=== PATIENT | female | born 1985 | race Caucasian/White ===

== ENCOUNTER 2024-11-24 00:43 | Day surgery (SDC) | payer OTHER, SELFPAY ==
[2024-11-13 10:56] VITALS: BMI 22.3
--- NOTE | 2024-11-13 10:57 | PC.NURSE ---
Report to the Outpatient Waiting Room, entrance under the green pavilion located off [facility], at time _0630_ on date _[id number]_. Planned Procedure Time: _0830_.? Time changes happen often and if your time is changed the preop area will call you the afternoon before. - You and your visitor will be asked to self-screen and do not enter if you have any COVID symptoms. Please call surgeon if you need to reschedule. - A mask is optional within the hospital at this time. Patients may have clear liquids (water, carbonated beverages, clear teas, apple juice) until 3 hours prior to surgery with a maximum of 20 ounces. - No food from midnight until time of surgery and no smoking. This includes no chewing gum, candy or mints. Take only the following medications with a SIP of water on the morning of surgery: ___None DO NOT STOP ANY OF YOUR OTHER PRESCRIPTION MEDICATIONS PRIOR TO SURGERY EXCEPT THE FOLLOWING Medications to discontinue per physician ___None Date to take last dose Please no make-up, nail malaysian, hairspray, perfume, deodorant, or body powder the day of surgery.? No jewelry (including any body piercings) or valuables the day of surgery, leave them at home.? Please take a shower or bath the night before, or the morning of, surgery with an antibacterial soap.? Wear comfortable, loose fitting clothing.? - Jewelry must be removed prior to entering the operating room.? Rings and piercings that are not removed may be cut off. - The hospital will not accept responsibility for valuables.? - Please leave all valuables, including medications, at home the day of surgery. If you are going home after surgery, a licensed test car driver must drive you home.? - NO public transportation without another adult if you receive anesthesia. - We recommend that an adult stay with you for 24 hours following discharge. - We also recommend that you do not drive, make important decision, drink alcoholic beverages, or take any drugs that were not prescribed by your health care provider for at least 24 hours after your discharge time. Follow any additional instructions given to you from your surgeon. Telephone instructions given to __Erin__and asked if any additional questions and then verbalized understanding. Patient advised to call surgeon office or pre surgery nurse liaison [phone] if any additional questions.
[2024-11-24] VITALS (15 sets, daily range): BP systolic 102–121; BP diastolic 57–74; PULSE 72–109; RESP 16–20; TEMP 36.9–37.8; O2SAT 97–100; BMI 22.8
--- NOTE | 2024-11-24 06:53 | WPDHPUPDATE1 ---
History and Physical Update Update Date/Time: 11/24/24 06:53 History and Physical has been reviewed, including an updated exam of the patient. There are NO changes in the patient's condition. Risks, benefits, and alternatives have been discussed and questions answered. Patient agrees to proceed with procedure.
--- NOTE | 2024-11-24 06:54 | W.PM.PROC2 ---
Procedure Note - Detailed Date of Procedure 11/24/24 Pre-op Diagnosis breast ptsois, skin laxity Post-op Diagnosis Same Procedure Performed 1. Bilateral mastopexy 2. Progressive tension abdominoplasty with suction lipectomy Surgeon Bj Up MD Anesthesia General Findings Abdominal tissue removed: 899 grams Lipoaspirate: Posterior: 1150 cc Anterior: 1450 cc Diastasis width: 6 cm Description of Procedure They are here today for the above procedures. Previously and again today the risks, benefits, alternatives were discussed in extensive detail. I wanted them to be very realistic about the risks involved as well as expectations. We discussed aftercare and what to monitor for. I was very upfront about the risks of wound breakdown leading to loss of skin, open wounds, and need for additional procedures with permanent abdominal deformity. We discussed DVT/PE risks and management. Made sure answered all of their questions to their satisfaction today and consent was obtained. They were marked in the preoperative holding area with their verification. The patient was taken to the operating room. Anesthesia was provided by anesthesiology. A Guerrero catheter was started. Posterior Placed prone on the operating room table with care taken to protect from injury. Prepped and draped in a standard sterile fashion. A surgical time-out was taken. Stab incisions were made and tumescent solution was infiltrated. Once adequate time was allowed for hemostasis a 5mm basket and 4mm antonieta cannula were utilized to complete suction lipectomy based on S.A.F.E. technique in multiple planes and passes. Suction lipectomy continued to result based on pre-operative planning, intra-operative observation, and rolling pinch test which were in full agreement. Patient was then placed supine with care taken to protect from injury. Breast Eleven blade was utilized to make a stab incision and infiltrated with low volume tumescent solution. The breast was tailor tacked into place. I tailor tacked the breast into position. Placed her in a sitting position. Verified the nipple-areolar location based on preoperative planning as well as intraoperative observations and measurements in full agreement. She was placed supine. I de-epithelialized the pedicle. I then de-epithelialized the inferior breast tissue to create an autoaugmentation flap based on intercostal business services administrator. I elevated medial and lateral tissue flaps as well for planned closure. The autoaugmentation flap was sutured to the chest wall with 2-0 PDS. I closed along the IMF with 2-0 Stratafix. Along the vertical with 2-0 PDS. I closed around the Benny with 3-0 strata fix. 3-0 Monocryl along the vertical. 3-0 Stratafix along the IMF. I finally closed everything with running subcuticular 4-0 Monocryl and tissue glue. Abdomen I placed the patient in a flexed position to verify the upper and lower markings would reach. I then placed supine. A thorough abdominal examination was completed. Stab incisions were made and tumescent solution infiltrated. Stab incisions were made and tumescent solution was infiltrated. Once adequate time was allowed for hemostasis a 5mm basket and 4mm antonieta cannula were utilized to complete suction lipectomy based on S.A.F.E. technique in multiple planes and passes. Suction lipectomy continued to result based on pre-operative planning, intra-operative observation, and rolling pinch test which were in full agreement. A 10 blade was used to make the upper incision. I continued dissection down to the level of fascia. Elevated just what was necessary for repair of the diastasis. I then again flexed the bed to verify the upper skin flap would reach the lower markings without tension. Once verified I placed her supine once again and a 10 blade used to make the lower incision. I elevated up to level the umbilicus and left the umbilicus intact on a well-vascularized stalk. The intervening tissue was removed. A 2 mm blunt cannula with 0.5% bupivacaine was injected deep to the fascia bilaterally. I plicated the diastasis recti using 0 PDO Stratafix barbed suture. This was in 2 separate layers using 2 separate sutures as well. The patient was flexed and starting from superior to inferior began plication using 2-0 Vicryl to obliterate all space in a standard progressive tension fashion. At the umbilicus I marked out the location of the skin and inset this with 3-0 Monocryl and 4-0 Vicryl. I continued the remainder of the plication using 2-0 Vicryl until I reached my lower planned scar line. I trimmed any excess skin of the upper flap making sure this was a tension-free closure. 15 Wes drain was placed. I then approximated using a 3 point suture with 2-0 Vicryl followed by 2-0 PDO Stratafix, 3-0 Stratafix ,running subcuticular 4-0 Monocryl, and tissue glue. Fluffs, surgical bra, and an abdominal binder were placed. The patient was transferred to the bed in a flexed position. [place] and taken to the PACU without difficulty. All instrument and sponge counts were correct at the end of the case. Estimated Blood Loss 100 Drains Yes (15 Wes) Packing No Pathology None sent Complications No immediate complications Condition Stable Disposition PACU
--- NOTE | 2024-11-24 07:01 | WPDANESEPPF ---
Anes - Initial Pre Proc Eval Procedure: Operation Date: 11/24/24 08:30 Proposed Procedures p Bilateral Breast Mastopexy, - Bj Up MD s Abdominoplasty with Liposuction - Bj Up MD Date/Time: 11/24/24 07:01 Surgeon: Bj Up MD Pre Op Diagnosis: breast ptsois, skin laxity Patient Data Age: 39 Gender: F Height: 1.68 m Weight: 62.7 kg Allergies Allergy/AdvReac Type Severity Reaction Status Date / Time No Known Allergies Allergy Verified 11/13/24 10:46 Home Medications ?Medication ?Instructions ?Recorded ?Confirmed ?Type lisdexamfetamine 40 mg capsule 40 mg PO DAILY 11/13/24 11/13/24 History (Vyvanse) Laboratory Tests 11/24/24 06:48 Cotinine Pending Patient hx anesthesia problems: none Family hx anesthesia problems: none Results Review: All pre-operative results and documents have been reviewed as part of the pre-operative evaluation. [facility] Surgical History Surgical History (Updated 11/24/24 @ 07:01 by Dillon Owens MD) H/O laparoscopy History of endometrial ablation H/O: hysterectomy Social History Social History Smoking status: Never smoker Living arrangements: with family Spiritual care concerns: No Anes - Eval Final PreProcedure Day of Procedure 11/24/24 07:01 Patient weight: normal Heart: regular rate and rhythm Lungs: clear to auscultation Airway: Mallampati scale class II Neurological: alert and oriented Last oral intake: >/= 8 hours ASA classification: I Emergent: no Anesthetic plan: proceed Anesthesia type and monitoring: general ETT and standard monitoring Results Review: All pre-operative results and documents have been reviewed as part of the pre-operative evaluation. Informed Consent: The patient's anesthetic plan and its attendant risks and benefits were discussed with the patient/family/POA. Questions were solicited and answers provided to the satisfaction of the patient/family/POA.
[2024-11-24 07:22] LABS: Urine Cotinine NEGATIVE
[2024-11-24] MEDS: LACTATED RINGERS 1,000 ML 30 ML IV CONT ×2 (08:00→13:53)
[2024-11-24] MEDS: ceFAZolin 2 GM/D5W 50 ML 2 GM/50 ML BAG IVPB (08:28)
[2024-11-24] MEDS: LACTATED RINGERS IRRIG 1,000 ML, LIDOCAINE 1% LOCAL INJ 50 ML, EPINEPHrine HCL INJ 1 MG... INFILTRATE (08:28)
[2024-11-24] MEDS: TRANEXAMIC ACID 1,000MG/ISO100 1,000 MG/100 ML BAG 200 MG IVPB (08:28)
[2024-11-24] MEDS: BUPIVACAINE/EPINEPHRINE 0.5% 30 ML VIAL 60 ML INFILTRATE (08:28)
[2024-11-24] MEDS: ceFAZolin SODIUM 1 GM VIAL IV PUSH (12:27)
[2024-11-24] MEDS: fentaNYL CITRATE INJ (*CRX) 100 MCG/2 ML VIAL 25 MCG IV PUSH ×3 (15:40→17:30)
--- NOTE | 2024-11-24 17:10 | SUR.PHASEII ---
1710: Orders received from Ratna Anderson CRNA for an oxycodone. Patient and patient's family stated they no longer want patient to take the oxycodone. Patient has home medication of percocet (prescribed by Dr. Up). Patient requests to take half of her prescribed home medication of percocet. Given to her by spouse. Will monitor patient for safety.
[2024-11-24] MEDS: ONDANSETRON INJ 4 MG/2 ML VIAL IV PUSH (18:07)
[2024-11-24] MEDS: diazePAM (*CRX) 5 MG TABLET PO (18:15)
--- OUTSIDE RECORDS SUMMARY | 2024-11-30 10:11 | XMS_ITS | Clinical Summary ---
Author Organization [facility] Address [address] [place] [address] Care Team Providers Care General Milling Superintendent Name Role Phone Unavailable Primary Care Provider Unavailabl e Source Comments [facility] [employer],non-owned Affiliates and Associated Physician Practices is amultiple site organization consisting of ambulatory clinics and hospital sitesin [place], [place], [place] and [place]. This disclosure is being madepursuant to the Care Everywhere program and may not contain all information available regarding this patient. Last updated 18.[facility] [employer] Social History Tobacco Use Types Packs/Day Years Used Date Smoking Tobacco: Never Assessed Sex and Gender Information Value Date Recorded Sex Assigned at Not on file Gender Identity Not on file Sexual Orientation Not on file Plan of Treatment Health Maintenance Due Date Last Done Comments PAP SMEAR 1987 HIV SCREENING 2002 HEPATITIS C SCREENING 07/26/2005 DTAP/TDAP/TD VACCINES (1 - Tdap) 2006 HEPATITIS B VACCINE (1 of 3 - 19+ 3-dose series) 2006 COVID-19 VACCINE ( - 2023-2 5 season) 2024 INFLUENZA VACCINE (#1) 2024 DEPRESSION SCREENING 11/18/2024 ZOSTER VACCINE (1 of 2) 2037 HIB VACCINE Aged Out No longer eligi ble based on patient's age to complete this topic HPV VACCINE Aged Out No longer eligi ble based on patient's age to complete this topic MENINGOCOCCAL VACCINE Aged Out No geraldine celso eligible based on patient's age to complete this topic PNEUMOCOCCAL VACCINE Aged Out No long er eligible based on patient's age to complete this topic [address] [place] [id number]
--- OUTSIDE RECORDS SUMMARY | 2024-11-30 10:11 | XMS_ITS | Encounter Summary ---
Author Organization [employer] Address [address] [place] [id number] Care Team Providers Care Door Hanger Name Role Phone Delonte Marin MD Primary Care Provider [phone] Roshni Pop APRN Unavailable [phone] Reason for Visit * Reason Comments Back Pain-New <28 days Generalized Body Aches Encounter Details Date Type Department Care Team (Late st Contact Info) Description 09/27/2024 2:50 PM [facility] - 09/27/2024 4:40 PM [facility] [address] [place] [id number] Belén Gotti K, DO [address] [place] [address] Feeling of incomplete bladder emptying (Primary Dx); Dehydration, mild Discharge Disposition: Home - Discharge to Home or Self Care Social History Tobacco Use Types Packs/Day Years Used Date Smoking Tobacco: Never Passive Smoke Exposure: Never Smokeless Tobacco: Never Alcohol Use Standard Drinks/Week Comments No 0 (1 standard drink = 0.6 oz pur e alcohol) PHQ-2 Answer Date Recorded PHQ-2 Total Score 3 08/20/2024 Comments Unknown Sex and Gender Information Value Date Recorded Sex Assigned at Not on file Legal Sex Female 4:27 PM CDT Gender Identity Not on file Sexual Orientation Not on file 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 Not on file Not on file Not on file documented as of this encounter Last Filed Vital Signs Vital Sign Reading Time Taken Comments Blood Pressure 110/70 09/27/2024 4:30 PM [facility] Pulse 80 09/27/2024 4:30 PM [facility] Temperature 36.5 ??C (97.7 ??F) 09/27/2024 2:54 PM CS T Respiratory Rate 14 09/27/2024 4:30 PM [facility] Oxygen Saturation 98% 09/27/2024 4:30 PM [facility] Inhaled Oxygen Concentration - - Weight 63.5 kg (140 lb) 09/27/2024 2:54 PM [facility] Height 167.6 cm (5' 6 ) 09/27/2024 2:54 PM [facility] Body Mass Index 22.6 09/27/2024 2:54 PM [facility] documented in this encounter Discharge Instructions * Attachments The following attachments cannot be sent through Care Everywhere. * Oral Rehydration (Turkish) documented in this encounter Medications at Time of Discharge diclofenac sodium (VOLTAREN) 75 MG EC tablet Take 1 (one) tablet (75 mg total) by mouth 2 (two) times daily. 30 tablet 07/14/2024 SUMAtriptan succinate (IMITREX) 100 MG tabletIndications :Migraine without aura and without status migrainosus, not intractable Take 1 tablet by mouth as needed for Migraine. MAX 2 per day. 9 tablet 5 05/14/2023 hydrOXYzine (ATARAX) 25 MG tablet Take 1 (one) tablet (25 mg total) by mouth nightly as needed for Itching. 30 tablet 08/20/2024 11/20/2024 lisdexamfetamine (Vyvanse) 40 MG capsule Take 1 (one) capsule (40 mg total) by mouth every morning. 30 capsule 09/24/2024 10/29/2024 documented as of this encounter ED Notes * Pratibha Samuels RN - 09/27/2024 2:53 PM CST Pt presents to the ER c/o bilateral lower back pain. PT reports that since having a hysterectomy 9 days ago she has not been able to have a feeling of a full bladder. PT reports that she is concernedshe is not completely emptying and is maybe getting a UTI. [facility] * Belén Gotti DO - 09/27/2024 2:16 PM CST History Chief Complaint Patient presents with Back Pain-New <28 days Generalized Body Aches HPI patient is a 39-year-old female who is approximately 9 days post laparoscopic hysterectomy. Shehas had diminished sensation regarding urination and has concerns that she has an infection due to incomplete bladder emptying. Bladder scan postvoid showed complete emptying. Patient does admit to some chills this morning. Urinalysis has been sent and is pending. Abdominal wounds are all closed and sealed with glue with no signs of erythema or drainage. Past Medical History: Diagnosis Date Carpal tunnel syndrome Neck disc problems.Sees chiropractor and Celebrex Cervical spondylosis 12/21/2019 Migraines Saw [facility]. Uses Imitrex and nortriptyline. Less migraines since Mirena out. Past Surgical History: Procedure Laterality Date CARPAL TUNNEL RELEASE Left 09/12/2015 Left hand carpal tunnel release./[place] CARPAL TUNNEL RELEASE Right 10/24/2015 Right hand carpal tunnel release./[place] FOOT SURGERY Left bunionectomy HYSTEROSCOPY W/ ENDOMETRIAL ABLATION 03/25/2024 Dr Sears LAPAROSCOPIC TOTAL HYSTERECTOMY 09/18/2024 Dr Roger at [facility] LEFT OOPHORECTOMY 01/21/2024 SALPINGECTOMY Bilateral 01/21/2024 Family History Problem Relation Age of Onset Skin cancer Mother Celiac disease Mother Migraines Father Diabetes Paternal Grandmother Diabetes Paternal Grandfather Cancer Neg Hx Heart disease Neg Hx Social History Tobacco Use Smoking status: Never Passive exposure: Never Smokeless tobacco: Never Vaping Use Vaping status: Never Used Substance Use Topics Alcohol use: No Alcohol/week: 0.0 standard drinks of alcohol Drug use: No OB History Para Term AB Living 3 3 2 3 SAB IAB Ectopic Multiple Live Births 3 # Outcome Date GA Lbr Panchito/2nd Weight Sex Type Anes PTL Lv 3 Para 2 Term 1 Term Obstetric Comments She reports normal vaginal deliveries ??3 with epidural.Breast fed with 2nd and 3rd and did well. First did not work out. unknown Review of Systems Constitutional: Positive for activity change and chills. Questionable fever the patient did not have a thermometer. She is afebrile here Genitourinary: Positive for decreased urine volume, difficulty urinating and flank pain. Negative for dysuria and enuresis. Bilateral low back pain Current Outpatient Medications: diclofenac sodium (VOLTAREN) 75 MG EC tablet, Take 1 (one) tablet (75 mg total) by mouth 2 (two) times daily. hydrOXYzine (ATARAX) 25 MG tablet, Take 1 (one) tablet (25 mg total) by mouth nightly as needed forItching. lisdexamfetamine (Vyvanse) 40 MG capsule, Take 1 (one) capsule (40 mg total) by mouth every morning. SUMAtriptan succinate (IMITREX) 100 MG tablet, Take 1 tablet by mouth as needed for Migraine. MAX 2per day. Allergies / Sensitivities No Known Allergies Current Immunization Status per Nursing Immunization Status Flu vaccine up to date?: No Immunization Hx Most Recent Immunizations Administered Date(s) Administered COVID-19 (PFIZER-yoo cap) mRNA ages 12+ 07/10/2021 COVID-19 (PFIZER-purple cap) MRNA ages 12+ 06/19/2021 Tdap 06/30/2020 Physical Exam BP 108/74 Pulse 92 Temp 36.5 ??C (97.7 ??F) (Temporal) Resp 16 Ht 167.6 cm (5' 6 ) Wt 63.5 kg (140 lb) SpO2 98% BMI 22.60 kg/m?? Physical Exam Vitals and nursing note reviewed. Constitutional: Appearance: She is well-developed. HENT: Head: Normocephalic and atraumatic. Eyes: Pupils: Pupils are equal, round, and reactive to light. Neck: Vascular: No JVD. Cardiovascular: Rate and Rhythm: Normal rate and regular rhythm. Heart sounds: Normal heart sounds. Pulmonary: Effort: Pulmonary effort is normal. No respiratory distress. Breath sounds: Normal breath sounds. No wheezing or rales. Chest: Chest wall: No tenderness. Abdominal: General: Bowel sounds are normal. Musculoskeletal: General: No tenderness or deformity. Cervical back: Normal range of motion. Skin: General: Skin is warm and dry. Neurological: Mental Status: She is alert and oriented to person, place, and time. Psychiatric: Mood and Affect: Mood normal. Thought Content: Thought content normal. Judgment: Judgment normal. Recent Results (from the past 48 hours) Urinalysis with Reflex Microscopic Testing Collection Time: 09/27/24 3:00 PM Result Value Ref Range Specimen, UA CLN CATCH Color, UA YELLOW YEL Clarity, UA CLEAR CLEAR Glucose, UA NEG NEG mg/dL Bilirubin, UA NEG NEG Ketones, UA NEG NEG mg/dL Specific [place], UA >1.030 (H) 1.002 - 1.020 Blood, UA NEG NEG PH, UA 6.0 5.0 - 8.0 Protein, UA TRACE (A) NEG mg/dL Urobilinogen,UA 0.2 0.1 - 1.0 [Johana'U]/dL Nitrite, UA NEG NEG Leukocyte Esterase, UA NEG NEG Comment NONE Urinalysis Microscopic Collection Time: 09/27/24 3:00 PM Result Value Ref Range RBC 2-5 (A) R02 /[HPF] WBC 0-5 R05 /[HPF] Bacteria,UR FEW (A) NS /[HPF] Epithelial Cells-Ur NONE SEEN/FEW NSFEW /[LPF] Other Observation,UR NONE Mucous PRESENT (A) NS CBC and differential Collection Time: 09/27/24 4:18 PM Result Value Ref Range WBC 9.89 4.00 - 11.00 10*3/uL RBC 3.86 3.80 - 5.80 10*6/uL HGB 11.8 11.5 - 16.5 g/dL HCT 34.4 (L) 37.0 - 47.0 % MCV 89.1 76 - 99 fL MCH 30.6 27.0 - 32.0 pg MCHC 34.3 30.0 - 35.0 g/dL Platelets 213 135 - 470 10*3/uL RDW-CV 11.7 11.0 - 17.0 % MPV 10.4 8.0 - 12.5 fL Differential Type AUTOMATED DIFFERENTIAL Neutrophil % 76.6 (H) 45.0 - 75.0 % Lymphocytes % 12.9 (L) 20.0 - 45.0 % Monocyte % 7.1 0.0 - 10.0 % Eosinophils Relative % 2.6 0.0 - 5.0 % Basophils % 0.5 0.0 - 2.0 % Immature Granulocytes% 0.3 0.0 - 1.6 % Neutrophils Absolute 7.57 2.00 - 7.90 10*3/uL Lymphocytes Absolute 1.28 1.00 - 4.00 10*3/uL Monos Absolute 0.70 0.00 - 0.80 10*3/uL Eosinophils Absolute Count 0.26 0.00 - 0.40 10*3/uL Basophils Absolute 0.05 0.00 - 0.10 10*3/uL Immature Granulocytes Absolute 0.03 0.0 - 0.20 10*3/uL Imaging / Studies reviewed: Imaging Results None ED Course Procedures ED Medications and Procedures URINALYSIS WITH REFLEX MICROSCOPIC TESTING - Abnormal; Notable for the following components: Result Value Ref Range Specific [place], UA >1.030 (*) 1.002 - 1.020 Protein, UA TRACE (*) NEG mg/dL All other components within normal limits UA MICROSCOPIC - Abnormal; Notable for the following components: RBC 2-5 (*) R02 /[HPF] Bacteria,UR FEW (*) NS /[HPF] Mucous PRESENT (*) NS All other components within normal limits CBC AND DIFFERENTIAL - Abnormal; Notable for the following components: HCT 34.4 (*) 37.0 - 47.0 % Neutrophil % 76.6 (*) 45.0 - 75.0 % Lymphocytes % 12.9 (*) 20.0 - 45.0 % All other components within normal limits Plan: New Prescriptions No medications on file Disposition: Discharge Follow-Up Providers Delonte Marin MD Specialty: Family Medicine Relationship: PCP - General Next Steps: Follow up Instructions: As needed Push fluids MDM Disclaimer: Note: To increase efficiency, your provider prepared this document using voice recognition technology. In that case, if a word or phrase is confusing, or does not make sense, this is likely due to a recognition error within the program which was not discovered during the provider???s review. If you believe an error has occurred, please notify your provider???s office at your earliest convenience, so we can correct any mistakes. A template was used to create this document. It was edited to reflect the patients current complaints and physical condition as appropriate Belén Gotti DO 09/27/24 1634 [facility] documented in this encounter Plan of Treatment Not on file documented as of this encounter Goals Goal Patient Goal Type Associated Problems Recent Progress Patient-Stated? Author Blood Pressure < 140/90 Blood Pressure 118/82(01/03/ 2025 10:05 AM [facility]) No Delonte Marin MD Use sunscreen daily Lifestyle No Divya Cr, RN Frequent Skin Checks Lifestyle No Divya Cr, RN documented as of this encounter Procedures Procedure Name Priority Date/Time Associated Diagnosis Comments CBC AND DIFFERENTIAL STAT 09/27/2024 4:18 PM [facility] URINALYSIS WITH REFLEX MICROSCOPIC TESTING STAT 09/27/2024 3:00 PM [facility] UA MICROSCOPIC Routine 09/27/2024 3:00 PM [facility] documented in this encounter Results * (ABNORMAL) CBC and differential (09/27/2024 4:18 PM [facility]) WBC 9.89 4.00 - 11.00 10*3/uL 09/27/2024 4:26 PM [facility] RBC 3.86 3.80 - 5.80 10*6/uL 09/27/2024 4:26 PM [facility] HGB 11.8 11.5 - 16.5 g/dL 09/27/2024 4:26 PM [facility] HCT 34.4(L) 37.0 - 47.0 % 09/27/2024 4:26 PM [facility] MCV 89.1 76 - 99 fL 09/27/2024 4:26 PM [facility] MCH 30.6 27.0 - 32.0 pg 09/27/2024 4:26 PM [facility] MCHC 34.3 30.0 - 35.0 g/dL 09/27/2024 4:26 PM [facility] Platelets 213 135 - 470 10*3/uL 09/27/2024 4:26 PM [facility] RDW-CV 11.7 11.0 - 17.0 % 09/27/2024 4:26 PM [facility] MPV 10.4 8.0 - 12.5 fL 09/27/2024 4:26 PM [facility] Differential Type AUTOMATED DIFFERENTIAL 09/27/2024 4:26 PM [facility] Neutrophil % 76.6(H) 45.0 - 75.0 % 09/27/2024 4:26 PM [facility] Lymphocytes % 12.9(L) 20.0 - 45.0 % 09/27/2024 4:26 PM [facility] Monocyte % 7.1 0.0 - 10.0 % 09/27/2024 4:26 PM [facility] Eosinophils Relative % 2.6 0.0 - 5.0 % 09/27/2024 4:26 PM [facility] Basophils % 0.5 0.0 - 2.0 % 09/27/2024 4:26 PM [facility] Immature Granulocytes% 0.3 0.0 - 1.6 % 09/27/2024 4:26 PM [facility] Neutrophils Absolute 7.57 2.00 - 7.90 10*3/uL 09/27/2024 4:26 PM [facility] Lymphocytes Absolute 1.28 1.00 - 4.00 10*3/uL 09/27/2024 4:26 PM [facility] Monos Absolute 0.70 0.00 - 0.80 10*3/uL 09/27/2024 4:26 PM [facility] Eosinophils Absolute Count 0.26 0.00 - 0.40 10*3/uL 09/27/2024 4:26 PM [facility] Basophils Absolute 0.05 0.00 - 0.10 10*3/uL 09/27/2024 4:26 PM [facility] Immature Granulocytes Absolute 0.03 0.0 - 0.20 10*3/uL 09/27/2024 4:26 PM [facility] Whole Blood BLOOD SPECIMEN / Unknown 09/27/2024 4:18 PM [facility] 09/27/2024 4:22 PM [facility] Belén Gotti DO LAB BLOOD ORDERABL ES Final Result [facility] [address] [place] [phone] [facility] [address] [place] [address] * (ABNORMAL) Urinalysis Microscopic (09/27/2024 3:00 PM [facility]) RBC 2-5(A) R02 /[HPF] 09/27/2024 3:45 PM [facility] WBC 0-5 R05 /[HPF] 09/27/2024 3:45 PM [facility] Bacteria,UR FEW(A) NS /[HPF] 09/27/2024 3:45 PM [facility] Epithelial Cells-Ur NONE SEEN/FEW NSFEW /[LPF] 09/27/2024 3:45 PM [facility] Other Observation,UR NONE 09/27/2024 3:45 PM [facility] Mucous PRESENT(A) NS 09/27/2024 3:45 PM [facility] Urine 09/27/2024 3:00 PM [facility] 09/27/2024 3:40 PM [facility] Belén Gotti DO URINE ORDERABLES F inal Result [facility] [address] [place], [place] [phone] [facility] [address] [place] [address] * (ABNORMAL) Urinalysis with Reflex Microscopic Testing (09/27/2024 3:00 PM [facility]) Specimen, UA CLN CATCH 09/27/2024 3:37 PM [facility] Color, UA YELLOW YEL 09/27/2024 3:45 PM [facility] Clarity, UA CLEAR CLEAR 09/27/2024 3:45 PM [facility] Glucose, UA NEG NEG mg/dL 09/27/2024 3:45 PM [facility] Bilirubin, UA NEG NEG 09/27/2024 3:45 PM [facility] Ketones, UA NEG NEG mg/dL 09/27/2024 3:45 PM [facility] Specific [place], UA >1.030(H) 1.002 - 1.020 09/27/2024 3:45 PM [facility] Blood, UA NEG NEG 09/27/2024 3:45 PM [facility] PH, UA 6.0 5.0 - 8.0 09/27/2024 3:45 PM [facility] Protein, UA TRACE(A) NEG mg/dL 09/27/2024 3:45 PM [facility] Urobilinogen,U A 0.2 0.1 - 1.0 [Johana'U ]/dL 09/27/2024 3:45 PM [facility] Nitrite, UA NEG NEG 09/27/2024 3:45 PM [facility] Leukocyte Esterase, UA NEG NEG 09/27/2024 3:45 PM [facility] Comment NONE 09/27/2024 3:45 PM [facility] Urine URINE SPECIMEN FROM URINARY BLADDER / Unknown 09/27/2024 3:00 PM [facility] 09/27/2024 3:40 PM [facility] us Belén Gotti DO URINE ORDERABLES F inal Result [facility] [address] [place], [place] [phone] [facility] [address] [place] [address] documented in this encounter Visit Diagnoses Diagnosis Feeling of incomplete bladder emptying- Primary Incomplete bladder emptying Dehydration, mild Dehydration documented in this encounter Additional Health Concerns Assessment Noted Time PHQ-9 Depression Total Score: 11 024 9:08 AM CDT A Depression follow-up plan has been documented for the patient 05/03/2024 5:12 PM CDT documented as of this encounter Care Teams Door Hanger Relationship Specialty Start Date End Date Delonte Marin MD [address] [facility] [address] [place] [address] PCP - General Podiatry 08/23/15 Roshni Pop APRN [address] [facility] [address] [place] [address] Nurse Practitioner Behavioral Health 07/23/24 documented as of this encounter
--- OUTSIDE RECORDS SUMMARY | 2024-11-30 10:11 | XMS_ITS | Encounter Summary ---
Author Organization [facility] Address [address] [place] [address] Care Team Providers Care Pin Ball Machine Mechanic Name Role Phone Delonte Marin MD Primary Care Provider [phone]- [phone] Reason for Visit * Reason Comments Knee Pain Initial evaluation o f chronic RIGHT knee pain for 3-4 months Encounter Details Date Type Department Care Team (Late st Contact Info) Description 07/14/2024 9:00 AM CDT Office Visit [facility] [address] [place] [address] Jana Muhammad DO [address] [place] [address] Chronic pain of right knee (Primary Dx); Hamstring tendinitis of right thigh Social History Tobacco Use Types Packs/Day Years Used Date Smoking Tobacco: Never Passive Smoke Exposure: Never Smokeless Tobacco: Never Alcohol Use Standard Drinks/Week Comments No 0 (1 standard drink = 0.6 oz pur e alcohol) PHQ-2 Answer Date Recorded PHQ-2 Total Score 6 04/20/2024 Comments Unknown Sex and Gender Information Value Date Recorded Sex Assigned at Not on file Legal Sex Female 4:27 PM CDT Gender Identity Not on file Sexual Orientation Not on file 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 -We will call with pertinent abnormalities found in the final radiology report once available and reviewed. -Education provided today along with discussion of acute findings, potential diagnoses as well as treatment options and scenarios today. -Order for diclofenac to take as discussed in office today. -Home care with rest, protection, elevation, home modalities and/or OTC medication as needed for pain and symptom relief. -Otherwise may continue activities as tolerated with modifications as needed for comfort. -Call, return to clinic or seek medical evaluation for new or worsening symptoms. -Follow-up in 2 weeks or call with decision on referral for physical therapy -Patient understands and agrees with this plan. documented in this encounter Progress Notes * Jana Muhammad DO - 07/14/2024 9:[address] [facility] [address] [place] [address] SUBJECTIVE: Chief Complaint Patient presents with Knee Pain Initial evaluation of chronic RIGHT knee pain for 3-4 months Michelle Gomez is a 38 y.o. female here today for initial evaluation of chronic RIGHT knee pain. Michelle states that she has been experiencing pain in her right knee for about 3-4 months without a specific cause or injury. Pain is localized medially. She explains that she actively cycles on the [employer] and thought her pain was maybe coming from cycling. She took 2 months off of cycling and noticed that her symptoms were not improving. If anything she believes the lack of movement made her pain worse. She experiences pain with just walking as well. Bending and twisting increase pain. She never noticed swelling or bruising. She explains that she never experienced pain while she was cycling, butmore so after. Pain is worse in the knee at the end of the day. She has a history of back pain and still experiences that, but does not think or is not sure if that is related to her knee pain. X-rays were obtained today. Please see scanned patient intake form for additional HPI details. MEDICATION: Current Outpatient Medications: cefUROXime (CEFTIN) 500 MG tablet, Take 1 (one) tablet (500 mg total) by mouth 2 (two) times daily., Disp: 20 tablet, Rfl: 0 diclofenac sodium (VOLTAREN) 75 MG EC tablet, Take 1 (one) tablet (75 mg total) by mouth 2 (two) times daily., Disp: 30 tablet, Rfl: 0 diphenhydrAMINE (BENADRYL) 12.5 MG/5ML elixir, Gargle, swish and swallow 5 mL four times daily and at bedtime. May gargle/ swish and spit every two hours., Disp: 1800 mL, Rfl: 0 escitalopram (LEXAPRO) 10 MG tablet, Take 1 (one) tablet by mouth daily. (Patient taking differently: Take 5 mg by mouth daily.), Disp: 90 tablet, Rfl: 3 SUMAtriptan succinate (IMITREX) 100 MG tablet, Take 1 tablet by mouth as needed for Migraine. MAX 2per day., Disp: 9 tablet, Rfl: 5 Family History Problem Relation Age of Onset Skin cancer Mother Celiac disease Mother Migraines Father Diabetes Paternal Grandmother Diabetes Paternal Grandfather Cancer Neg Hx Heart disease Neg Hx Past Surgical History: Procedure Laterality Date Carpal tunnel release Left 09/12/2015 Left hand carpal tunnel release./[facility] Carpal tunnel release Right 10/24/2015 Right hand carpal tunnel release./[facility] Foot surgery Left bunionectomy Hysteroscopy w/ endometrial ablation 03/25/2024 Dr Sears Left oophorectomy 01/21/2024 Salpingectomy Bilateral 01/21/2024 Past Medical History: Diagnosis Date Carpal tunnel syndrome Neck disc problems.Sees chiropractor and Celebrex Cervical spondylosis 12/21/2019 Migraines Saw [facility]. Uses Imitrex and nortriptyline. Less migraines since Mirena out. Immunization History Administered Date(s) Administered COVID-19 (PFIZER-yoo cap) mRNA ages 12+ 07/10/2021 COVID-19 (PFIZER-purple cap) MRNA ages 12+ 06/19/2021 Tdap 06/30/2020 PROBLEM LIST: Patient Active Problem List Diagnosis Seborrheic keratoses Neck pain Cervicocranial syndrome of cervical region Cervical spondylosis Visual changes Ophthalmic migraine Chronic fatigue OCD (obsessive compulsive disorder) Anxiety Lumbar back pain Sore throat Seizure-like activity Panic attack OBJECTIVE: There were no vitals taken for this visit. There is no height or weight on file to calculate BMI. Physical Exam Intake note reviewed. Constitutional- no acute distress. Mental status- alert and cooperative. Psych- mood and affect appropriate. Head, Face- normocephalic, atraumatic, facies symmetric without weakness. Cardiovascular- no lower extremity edema distally, dorsal pedal and posterior tibial pulses intact and symmetric bilaterally. Lower extremity compartments are soft, supple and non-tender bilaterally. Skin- warm, dry and intact lower extremity without erythema, rashes or lesions bilaterally. Right Knee Exam Muscle Strength The patient has normal right knee strength. Tenderness The patient is experiencing tenderness in the medial hamstring and medial joint line. Range of Motion The patient has normal right knee ROM. Extension: 0 Flexion: 130 (trt!) Tests Ludwig: Medial - negative Lateral - negative Varus: negative Valgus: negative Yariel: Anterior - negative Drawer: Posterior - negative Other Effusion: no effusion present Left Knee Exam Muscle Strength The patient has normal left knee strength. Range of Motion The patient has normal left knee ROM. Extension: 0 Flexion: 140 Other Effusion: no effusion present Studies- [place] [address] DIAGNOSTIC IMAGING Name: MICHELLE GOMEZ Ordering Phys: JANA MUHAMMAD Date of : 1985 Gender: F Accession Number: [id number] EXAM DESCRIPTION: XR KNEE MIN 4 VIEWSRT REASON FOR STUDY: Medial right knee pain for 2 months, no known injury. Hx of cycling. TECHNIQUE: 4 views of right knee COMPARISON: None. FINDINGS: ALIGNMENT: Normal BONES: Intact. JOINT: No arthropathy, no loose bodies, no erosions. No significant joint effusion. SOFT TISSUE: Normal. IMPRESSION: No acute osseus abnormalities. THIS IS AN ELECTRONICALLY VERIFIED FINAL REPORT 07/14/2024 7:59 PM - Electronically signed by Jaswinder Spears M.D. ASSESSMENT: Chronic atraumatic right medial knee pain seemingly associated with spinning/stationary cycling andoverall evaluation today suspicious for medial hamstring tendinitis/enthesitis. See plan below. 1. Chronic pain of right knee PLAN: Patient Instructions -Appropriate imaging was obtained and/or reviewed and discussed in the office today. -We will call with pertinent abnormalities found in the final radiology report once available and reviewed. -Education provided today along with discussion of acute findings, potential diagnoses as well as treatment options and scenarios today. -Order for diclofenac to take as discussed in office today. -Home care with rest, protection, elevation, home modalities and/or OTC medication as needed for pain and symptom relief. -Otherwise may continue activities as tolerated with modifications as needed for comfort. -Call, return to clinic or seek medical evaluation for new or worsening symptoms. -Follow-up in 2 weeks or call with decision on referral for physical therapy -Patient understands and agrees with this plan. Follow up if symptoms worsen or fail to improve. Medications ordered this visit: Requested Prescriptions Signed Prescriptions Disp Refills diclofenac sodium (VOLTAREN) 75 MG EC tablet 30 tablet 0 Sig: Take 1 (one) tablet (75 mg total) by mouth 2 (two) times daily. Other Orders placed this visit: Orders Placed This Encounter Procedures XR Knee Min 4 Views Brittni Oliveira MA This document was dictated using Dragon; licensed mental health professional variances may occur. documented in this encounter Plan of Treatment Not on file documented as of this encounter Goals Goal Patient Goal Type Associated Problems Recent Progress Patient-Stated? Author Blood Pressure < 140/90 Blood Pressure 118/82(2024 10:05 AM BUSINESS PERFORMANCE MANAGER) No Delonte Marin MD Use sunscreen daily Lifestyle No Divya Cr, RN Frequent Skin Checks Lifestyle No Divya Cr, RN documented as of this encounter Results * XR Knee Min 4 Views (07/14/2024 9:43 AM CDT) Anatomical Region Laterality Modality Thigh, Knee, Leg Computed Radiog vinicius 07/14/2024 9:43 AM CDT Narrative 07/14/2024 8:00 PM CDT [address] ??[address] DIAGNOSTIC IMAGING Name: MICHELLE GOMEZ ??Ordering Phys: JANA MUHAMMAD Date of : 1985 ?Gender: F ??Accession Number: [id number] EXAM DESCRIPTION: XR KNEE MIN 4 VIEWSRT REASON FOR STUDY: Medial right knee pain for 2 months, no known injury. Hx of cycling. TECHNIQUE: 4 views of right knee COMPARISON: None. FINDINGS: ALIGNMENT: Normal BONES: Intact. JOINT: No arthropathy, no loose bodies, no erosions. ??No significant joint effusion. SOFT TISSUE: Normal. IMPRESSION: No acute osseus abnormalities. THIS IS AN ELECTRONICALLY VERIFIED FINAL REPORT 07/14/2024 7:59 PM - Electronically signed by Jaswinder Spears M.D. Procedure Note Jaswinder Spears MD - 07/14/2024 [place] [address] DIAGNOSTIC IMAGING Name: MICHELLE GOMEZ Ordering Phys: JANA MUHAMMAD Date of : 1985 Gender: F Accession Number: [id number] EXAM DESCRIPTION: XR KNEE MIN 4 VIEWSRT REASON FOR STUDY: Medial right knee pain for 2 months, no known injury. Hx of cycling. TECHNIQUE: 4 views of right knee COMPARISON: None. FINDINGS: ALIGNMENT: Normal BONES: Intact. JOINT: No arthropathy, no loose bodies, no erosions. No significant joint effusion. SOFT TISSUE: Normal. IMPRESSION: No acute osseus abnormalities. THIS IS AN ELECTRONICALLY VERIFIED FINAL REPORT 07/14/2024 7:59 PM - Electronically signed by Jaswinder Spears M.D. Jana Muhammad DO [facility] DI[facility]NOST[facility]AGING ORDERA BLES Final Result documented in this encounter Visit Diagnoses Diagnosis Chronic pain of right knee- Primary Hamstring tendinitis of right thigh Chronic pain of right knee documented in this encounter Additional Health Concerns Assessment Noted Time PHQ-9 Depression Total Score: 20 024 2:47 PM CDT A Depression follow-up plan has been documented for the patient 05/03/2024 5:12 PM CDT documented as of this encounter Care Teams Pin Ball Machine Mechanic Relationship Specialty Start Date End Date Delonte Marin MD [address] [facility] [address] [place] [address] PCP - General Podiatry 08/23/15 documented as of this encounter
--- OUTSIDE RECORDS SUMMARY | 2024-11-30 10:11 | XMS_ITS | Encounter Summary ---
Author Organization [facility] Address [address] [place] [address] Care Team Providers Care Slot Manager Name Role Phone Delonte Marin MD Primary Care Provider [phone]- [phone] Reason for Visit * Reason Comments Knee Pain Encounter Details Date Type Department Care Team (Late st Contact Info) Description 07/14/2024 9:35 AM CDT Clinical Support [facility] [place] [address] [place] [address] [place] [address] Judy Carreno, RTR [address] [place] [address] Chronic pain of right knee Social History Tobacco Use Types Packs/Day Years [...] on file documented as of this encounter Plan of Treatment Not on file documented as of this encounter Goals Goal Patient Goal Type Associated Problems Recent Progress Patient-Stated? Author Blood Pressure < 140/90 Blood Pressure 118/82(2024 10:05 AM MEDICAL LAB TECHNICIAN) No Delonte Marin MD Use sunscreen daily Lifestyle No Divya Cr RN Frequent Skin Checks Lifestyle No Divya Cr RN documented as of this encounter Procedures Procedure Name Priority Date/Time Associated Diagnosis Comments XR KNEE MIN 4 VIEWS Routine 07/14/2024 9 :43 AM CDT Chronic pain of right knee documented in this encounter Results * XR Knee Min 4 Views (07/14/2024 9:43 AM CDT) Anatomical Region Laterality Modality Thigh, Knee, Leg Computed Radiog vinicius 07/14/2024 9:43 AM CDT Narrative 07/14/2024 8:00 PM CDT [address] ??[address] DIAGNOSTIC IMAGING Name: EYAD GOMEZELENI Dunlap ??Ordering Phys: JANA MUHAMMAD Moni Date of : 1985 ?Gender: F ??Accession Number: [id number] EXAM DESCRIPTION: XR KNEE MIN 4 VIEWSRT [...] Procedure Note Jaswinder Spears MD - 07/14/[address] [address] DIAGNOSTIC IMAGING Name: GOMEZMICHELLE Ordering Phys: JANA MUHAMMAD L Date of : 1985 Gender: F Accession Number: [id number] EXAM DESCRIPTION: XR KNEE MIN 4 VIEWSRT [...] - Electronically signed by Jaswinder Spears M.D. us Jana Muhammad DO [facility] DIAGNOST[facility] IMAGING ORDERA BLES Final Result documented in this encounter Visit Diagnoses Diagnosis Chronic pain of right knee documented in this encounter Additional Health Concerns Assessment Noted Time PHQ-9 Depression Total Score: 20 024 2:47 PM CDT A Depression follow-up plan has been documented for the patient 05/03/2024 5:12 PM CDT documented as of this encounter Care Teams Slot Manager Relationship Specialty Start Date End Date Delonte Marin MD [address] [place] [address] [place] [address] PCP - General Podiatry 08/23/15 documented as of this encounter
--- OUTSIDE RECORDS SUMMARY | 2024-11-30 10:11 | XMS_ITS | Encounter Summary ---
Author Organization [facility] Address [address] [place], [place] [address] Care Team Providers Care Analytical Data Miner Name Role Phone Delonte Marin MD Primary Care Provider +1- [phone] Roshni Pop APRN Unavailable [phone] Encounter Details Date Type Department Care Team (Latest Contact Info) Description 11/13/2024 Transcribe Orders [facility] [address] [place] [address] Marleny Carrillo, ENVIRONMENTAL HEALTH SAFETY ENGINEER [address] [place] [address] Encounter for cosmetic surgery (Primary Dx) Social History Tobacco Use Types Packs/Day Years [...] 140/90 Blood Pressure 118/82(2024 10:05 AM MEDICAL DOCTOR) No Delonte Marin MD Use sunscreen daily Lifestyle No Divya Cr, RN Frequent Skin Checks Lifestyle No Divya Cr, RN documented as of this encounter Visit Diagnoses Diagnosis Encounter for cosmetic surgery- Primary Other plastic surgery for unacceptable cosmetic appearance documented in this encounter Additional Health Concerns Assessment Noted Time PHQ-9 Depression Total Score: 11 024 9:08 AM CDT A Depression follow-up plan has been documented for the patient 05/03/2024 5:12 PM CDT documented as of this encounter Care Teams Analytical Data Miner Relationship Specialty Start Date End Date Delonte Marin MD [address] [place] [address] [address] [place], [place] [id number] PCP - General Podiatry 08/23/15 Roshni Pop APRN [address] [place] [address] [place] [phone] Nurse Practitioner Behavioral Health 07/23/24 documented as of this encounter
--- OUTSIDE RECORDS SUMMARY | 2024-11-30 10:11 | XMS_ITS | Clinical Summary ---
Author Organization [facility] Address [address] [place] [id number] Care Team Providers Care Cooper Helper Name Role Phone Delonte Marin MD Primary Care Provider [phone] Roshni Pop APRN Unavailable [phone] Source Comments This disclosure is being made pursuant to the [employer] program and maynot contain all information available regarding this patient.[facility] Allergies No known active allergies Medications * This document contains information received from the source organization and may not represent a complete record from that organization. SUMAtriptan succinate (IMITREX) 100 MG tabletIndication s:Migraine without aura and without status migrainosus, not intractable Take 1 tablet by mouth as needed for Migraine. MAX 2 per day. 9 tablet 5 023 Active diclofenac sodium (VOLTAREN) 75 MG EC tablet Take 1 (one) tablet (75 mg total) by mouth 2 (two) times daily. 30 tablet 024 Active Additional Information Patient not taking.Reported on 11/20/2024 fluvoxamine (LUVOX) 25 MG tablet Take 1 (one) tablet (25 mg total) by mouth nightly. 30 tablet 025 Active Vyvanse 40 MG capsuleIndicatio ns:Attention deficit hyperactivity disorder, combined type Take 1 (one) capsule (40 mg total) by mouth every morning. 30 capsule 025 2024 Active hydrOXYzine (ATARAX) 25 MG tablet Take 1 (one) tablet (25 mg total) by mouth nightly as needed for Itching. 30 tablet 024 2024 Discontinued(* Patient Discontinued (sends cancel message to pharmacy)) fluticasone NASAL (FLONASE) 50 MCG/ACT nasal spray 2 (two) sprays by Nasal route daily. to each nostril 16 g 1 024 2024 Discontinued(* Therapy completed (sends cancel message to pharmacy)) cetirizine (ZYRTEC) 10 MG tablet Take 1 (one) tablet (10 mg total) by mouth daily as needed for Allergies. 30 tablet 024 2024 Discontinued(* Patient Discontinued (sends cancel message to pharmacy)) lisdexamfetamine (Vyvanse) 40 MG capsule Take 1 (one) capsule (40 mg total) by mouth every morning. 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 Date Type Department Care Team Description 11/20/2024 10:44 AM EXTRACT OPERATOR - 11/20/2024 11:59 PM EXTRACT OPERATOR Hospital Encounter [facility] [address] [place] [address] Encounter for cosmetic surgery Discharge Disposition: Home - Discharge to Home or Self Care 11/13/2024 Transcribe Orders [facility] [address] [place] [address] Marleny Carrillo, BUTT SAWYER Encounter for cosmetic surgery (Primary Dx) 11/13/2024 Transcribe Orders [facility] [address] [place] [address] Marleny Carrillo, BUTT SAWYER Encounter for cosmetic surgery (Primary Dx) 10/16/2024 12:30 PM EXTRACT OPERATOR Office Visit [facility] [address] [place] [address] Jaz Elizabeth PA Sore throat (Primary Dx) 09/27/2024 2:50 PM EXTRACT OPERATOR - 09/27/2024 4:40 PM EXTRACT OPERATOR Emergency [facility] [address] [place] [address] Belén Gotti DO Feeling of incomplete bladder emptying (Primary Dx); Dehydration, mild Discharge Disposition: Home - Discharge to Home or Self Care 09/27/2024 Travel from Last 3 Months Immunizations Immunization Administration Dates Next Due COVID-19 (PFIZER-yoo cap) mRNA ages 12+ 021 COVID-19 (PFIZER-purple cap) MRNA ages 12+ 06/19 Tdap 06/30/2020 Family History Medical History Relation Name Comments Migraines Father Celiac disease Mother Skin cancer Mother Diabetes Paternal Grandfather Diabetes Paternal Grandmother Cancer Neg Hx Heart disease Neg Hx Relation Name Status Comments Father Alive Mother Alive Paternal Grandfather Paternal Grandmother Social History Tobacco Use Types Packs/Day Years Used Date Smoking Tobacco: Never Passive Smoke Exposure: Never Smokeless Tobacco: Never Tobacco Cessation:Counseling Given: Yes Alcohol Use Standard Drinks/Week Comments No 0 (1 standard drink = 0.6 oz pur e alcohol) PHQ-2 Answer Date Recorded PHQ-2 Total Score 4 11/20/2024 Comments Unknown Sex and Gender Information Value Date Recorded Sex Assigned at Not on file Legal Sex Female 4:27 PM CDT Gender Identity Not on file Sexual Orientation Not on file 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 Not on file Not on file Not on file Last Filed Vital Signs Vital Sign Reading Time Taken Comments Blood Pressure 118/82 11/20/2024 10:05 AM EXTRACT OPERATOR Pulse 78 11/20/2024 10:05 AM EXTRACT OPERATOR Temperature 36.1 ??C (97 ??F) 11/20/2024 10:05 AM EXTRACT OPERATOR Respiratory Rate 16 11/20/2024 10:05 AM EXTRACT OPERATOR Oxygen Saturation 96% 11/20/2024 10:05 AM EXTRACT OPERATOR Inhaled Oxygen Concentration - - Weight 65.1 kg (143 lb 9.6 oz) 11/20/2024 10:05 AM EXTRACT OPERATOR Height 167.6 cm (5' 6 ) 11/20/2024 10:05 AM EXTRACT OPERATOR Body Mass Index 23.18 11/20/2024 10:05 AM EXTRACT OPERATOR Plan of Treatment Health Maintenance Due Date Last Done Comments Lab-Cholesterol Screening 1985 Lab-Hepatitis C Screening 1985 Lab-Urine Drug Screen 1985 Hepatitis B Vaccine (1 of 3 - 19+ 3-dose series) 2006 Annual Wellness Visit 09/19/2022 09/19/2021, 019 COVID-19 Vaccine ( - 2023- season) 2024 07/10/2021, 06/19/2021 Influenza Vaccine (#1) 2024 Controlled Substance Agreement-Annual Review 08/20/2025 08/20/2024 HPV Testing 09/19/2026 09/19/2021, 08/27/2019 Tetanus/Pertussis Vaccine Teen/Adult (2 - Td or Tdap) 06/30/2030 06/30/2020 Zoster (Shingles) Vaccine 50+ (1 of 2) 2037 RSV Adult (1 - 1-dose 75+ series) 2062 Pap Smear Discontinued 09/19/2021, 08/18, 08/27/2019, Additional history exists Cervical Cancer Screening Discontinued HIB Vaccine Aged Out No longer eligi ble based on patient's age to complete this topic HPV Vaccine (F:9-26YO,M: 9-22) Aged Out No longer eligible based on patient's age to complete this topic Hepatitis A Vaccine Aged Out No longe r eligible based on patient's age to complete this topic IPV Vaccine Aged Out No longer eligi ble based on patient's age to complete this topic Meningococcal Conjugate Vaccine Aged Out No longer eligible based on patient's age to complete this topic Pneumococcal Vaccines 0-49 yo Aged Out No longer eligible based on patient's age to complete this topic RSV < 20 Months Aged Out No longer el igible based on patient's age to complete this topic Goals Goal Patient Goal Type Associated Problems Recent Progress Patient-Stated? Author Blood Pressure < 140/90 Blood Pressure 118/82(2024 10:05 AM EXTRACT OPERATOR) No Delonte Marin MD Use sunscreen daily Lifestyle No Divya Cr, RN Frequent Skin Checks Lifestyle No Divya Cr, restaurant cook Procedure Name Priority Date/Time Associated Diagnosis Comments EKG 12- LEAD ([facility]) Routine 11/20/2024 Encounter for cosmetic surgery AMB POCT RAPID STREP A Routine 10/16/2024 12:48 PM EXTRACT OPERATOR Sore throat CBC AND DIFFERENTIAL STAT 09/27/2024 4:18 PM EXTRACT OPERATOR UA MICROSCOPIC Routine 09/27/2024 3:00 PM EXTRACT OPERATOR URINALYSIS WITH REFLEX MICROSCOPIC TESTING STAT 09/27/2024 3:00 PM EXTRACT OPERATOR LIQUID-BASED PAP SPECIMEN Routine 09/19/2021 10:30 AM CDT HPV HIGH RISK SCREEN BY PCR Routine 09/19/2021 10:30 AM CDT from Last 3 Months or Most Recently Relevant to Health Maintenance Results * EKG 12- lead (Non-Interfaced) (11/20/2024) 11/20/2024 Dillon Owens MD ECG ORDERABLES Final Result * AMB POCT Rapid Strep A (10/16/2024 12:48 PM EXTRACT OPERATOR) [facility] Rapid Strep A Screen Negative Negative, Detected, Not Detected [facility] POCTS 10/16/2024 12:4 8 PM [facility] Jaz MERCER POINT OF CARE TEST RAIZA TUCKER Final Result [facility] POCTS * (ABNORMAL) CBC and differential (09/27/2024 4:18 PM [facility]) WBC 9.89 4.00 - 11.00 10*3/uL 09/27/2024 4:26 PM [facility] RBC 3.86 3.80 - 5.80 10*6/uL 09/27/2024 4:26 PM [facility] HGB 11.8 11.5 - 16.5 g/dL 09/27/2024 4:26 PM [facility] HCT 34.4(L) 37.0 - 47.0 % 09/27/2024 4:26 PM [facility] MCV 89.1 76 - 99 fL 09/27/2024 4:26 PM [facility] MCH 30.6 27.0 - 32.0 pg 09/27/2024 4:26 PM [facility] MCHC 34.3 30.0 - 35.0 g/dL 09/27/2024 4:26 PM [facility] Platelets 213 135 - 470 10*3/uL 09/27/2024 4:26 PM [facility] RDW-CV 11.7 11.0 - 17.0 % 09/27/2024 4:26 PM [facility] MPV 10.4 8.0 - 12.5 fL 09/27/2024 4:26 PM [facility] Differential Type AUTOMATED DIFFERENTIAL 09/27/2024 4:26 PM [facility] Neutrophil % 76.6(H) 45.0 - 75.0 % 09/27/2024 4:26 PM [facility] Lymphocytes % 12.9(L) 20.0 - 45.0 % 09/27/2024 4:26 PM [facility] Monocyte % 7.1 0.0 - 10.0 % 09/27/2024 4:26 PM [facility] Eosinophils Relative % 2.6 0.0 - 5.0 % 09/27/2024 4:[address] [facility] Basophils % 0.5 0.0 - 2.0 % 09/27/2024 4:26 PM [facility] Immature Granulocytes% 0.3 0.0 - 1.6 % 09/27/2024 4:26 PM [facility] Neutrophils Absolute 7.57 2.00 - 7.90 10*3/uL 09/27/2024 4:26 PM [facility] Lymphocytes Absolute 1.28 1.00 - 4.00 10*3/uL 09/27/2024 4:26 PM [facility] Monos Absolute 0.70 0.00 - 0.80 10*3/uL 09/27/2024 4:26 PM [facility] Eosinophils Absolute Count 0.26 0.00 - 0.40 10*3/uL 09/27/2024 4:26 PM [facility] Basophils Absolute 0.05 0.00 - 0.10 10*3/uL 09/27/2024 4:26 PM [facility] Immature Granulocytes Absolute 0.03 0.0 - 0.20 10*3/uL 09/27/2024 4:26 PM [facility] Whole Blood BLOOD SPECIMEN / Unknown 09/27/2024 4:18 PM [facility] 09/27/2024 4:22 PM [facility] Belén Gotti DO LAB BLOOD ORDERABL ES Final Result [facility] [address] [place] [phone] [facility] [address] [place] [address] * (ABNORMAL) Urinalysis with Reflex Microscopic Testing (09/27/2024 3:00 PM [facility]) Specimen, UA CLN CATCH 09/27/2024 3:37 PM [facility] Color, UA YELLOW YEL 09/27/2024 3:45 PM [facility] Clarity, UA CLEAR CLEAR 09/27/2024 3:45 PM [facility] Glucose, UA NEG NEG mg/dL 09/27/2024 3:45 PM [facility] Bilirubin, UA NEG NEG 09/27/2024 3:45 PM [facility] Ketones, UA NEG NEG mg/dL 09/27/2024 3:45 PM [facility] Specific [place], UA >1.030(H) 1.002 - 1.020 09/27/2024 3:45 PM [facility] Blood, UA NEG NEG 09/27/2024 3:45 PM [facility] PH, UA 6.0 5.0 - 8.0 09/27/2024 3:45 PM [facility] Protein, UA TRACE(A) NEG mg/dL 09/27/2024 3:45 PM [facility] Urobilinogen,U A 0.2 0.1 - 1.0 [Johana'U ]/dL 09/27/2024 3:45 PM [facility] Nitrite, UA NEG NEG 09/27/2024 3:45 PM [facility] Leukocyte Esterase, UA NEG NEG 09/27/2024 3:45 PM [facility] Comment NONE 09/27/2024 3:45 PM [facility] Urine URINE SPECIMEN FROM URINARY BLADDER / Unknown 09/27/2024 3:00 PM EXTRACT OPERATOR 09/27/2024 3:40 PM [facility] Belén Gotti DO URINE ORDERABLES F inal Result [facility] [address] [place], [place] [phone] [facility] [address] [place] [address] * (ABNORMAL) Urinalysis Microscopic (09/27/2024 3:00 PM EXTRACT OPERATOR) RBC 2-5(A) R02 /[HPF] 09/27/2024 3:45 PM [facility] WBC 0-5 R05 /[HPF] 09/27/2024 3:45 PM [facility] Bacteria,UR FEW(A) NS /[HPF] 09/27/2024 3:45 PM [facility] Epithelial Cells-Ur NONE SEEN/FEW NSFEW /[LPF] 09/27/2024 3:45 PM [facility] Other Observation,UR NONE 09/27/2024 3:45 PM [facility] Mucous PRESENT(A) NS 09/27/2024 3:45 PM [facility] Urine 09/27/2024 3:00 PM EXTRACT OPERATOR 09/27/2024 3:40 PM EXTRACT OPERATOR Belén Gotti DO URINE ORDERABLES F inal Result [facility] [address] [place], [place] [phone] [facility] [address] [place] [address] * Liquid-Based Pap Specimen (09/19/2021 10:30 AM CDT) 09/19/2021 10:3 0 AM CDT 09/19/2021 Narrative [facility] - 09/25/2021 2:17 PM EXTRACT OPERATOR CASE: [id number] PATIENT: JAMES GOMEZ Patient: JAMES GOMEZ ?Location: Age: 36 ?Birthdate: 1985 ?Sex: F Submitted By: CHLOE NÚÑEZ Copies To: [facility] Gynecological Cytology Date Collected: 09/19/2021 10:30:00 AM ?LMP:x ?Specimen Source:Cervical Date Received: 09/19/2021 ?Clinical Information:HPV CO TEST >30 Reason for Pap Smear:Screening Pap Smear SPECIMEN ADEQUACY: ? Satisfactory for evaluation; an endocervical /transformation zone component is present. INTERPRETATION: ? Negative for intraepithelial lesion or malignancy. Cervicovaginal cellular samples are subject to both false negative and false positive findings. ??This is well documented in the medical literature. ??The patient's cervicovaginal cellular sample result should be interpreted in the proper clinical context. ??Correlation with the patient's clinical history and physical findings is recommended. ??If there is a visible mucosal lesion, a biopsy is recommended regardless of the cytology results Technical and diagnostic services performed at [facility] [address] [place] [address] Final Diagnosis performed by Addis Bell Electronically signed 09/25/2021 1:23:06PM Chloe Núñez [facility] PATHOLOGY/CYTOLOGY ORDERAB LES Final Result [facility] [place], [place] * HPV High Risk Screen by PCR (09/19/2021 10:30 AM CDT) HPV Genotype 16 NEG NEG 11:40 AM CDT [facility] HPV Genotype 18 NEG NEG 11:40 AM CDT [facility] HPV High Risk Screen NEG NEG 09/22/2021 11:40 AM CDT [facility] Comment: ---- The Darren Chucho HPV Genotype test uses RT-PCR method to detect high risk genotypes for HPV. This test detects high risk genotypes 16,18, as well as other high risk genotypes (31,33,35,39,45,51,52,56,58,59,66, and 68) associated with cervical cancer. Results of this test should only be interpreted in conjunction with information available from clinical evaluation of the patient and patient history. A negative result does not preclude the presence of HPV infection because results depend on adequate specimen collection, absence of inhibitors and sufficient DNA to be detected. Infection with HPV is not an indicator of cytologic HSIL or underlying high- grade NATALI, nor does it imply that CIN2-3 or cancer will develop. HPV testing should not be used for screening or management of atypical squamous cells of undetermined significance (ASCUS) in women under age 21. The Chucho HPV test is not recommended for evaluation of suspected sexual abuse cases. Performance of this test has not been adequately established for HPV vaccinated individuals. Specimen Type [id number] 09/20/2021 10:20 AM CDT [employer] [facility] Comment:Performed at [facility], [address] [place] [address], ([phone], unless otherwise noted. Serum 09/19/2021 10:3 0 AM CDT 09/20/2021 10:19 AM CDT Chloe Núñez [facility] MICROBIOLOGY - GENERAL ORD ERABLES Final Result Performing Organization Address City/State/RUST Co de Phone Number [facility] [address] [facility] [address] [place], [place] [phone] [employer] [facility] [address] [place] [address] from Last 3 Months or Most Recently Relevant to Health Maintenance Insurance [address] [place], [place] [id number] [place] [address] PROVIDERS ONLY Care Teams Cooper Helper Relationship Specialty [place] [address] [place] [address] [address] [place], [place] [phone] PCP - General Podiatry 08/23/15 Roshni Pop APRN [address] [place] [address] [address] [place], [place] [phone] Nurse Practitioner Behavioral Health 07/23/24
--- OUTSIDE RECORDS SUMMARY | 2024-11-30 10:11 | XMS_ITS | Clinical Summary ---
[facility] Organization [facility] Address [address] [address] [place] [address] Care Team Providers Care Filter Press Operator Name Role Phone Unavailable Unavailable Unavailable Problems This patient has no known problems. Allergies, Adverse Reactions, Alerts This patient has no known allergies or adverse reactions.
--- OUTSIDE RECORDS SUMMARY | 2024-11-30 10:11 | XMS_ITS | Encounter Summary ---
Author Organization [employer] Address [address] [place] [address] Care Team Providers Care It Program Auditor Name Role Phone Deolnte Marin MD Primary Care Provider [phone]- [phone] Roshni Pop BIOFUELS PLANT OPERATIONS ENGINEER Unavailable [phone] Reason for Visit * Reason Comments Sore Throat Pt in with complaint s of a sore throat that started yesterday. Denies any other sx. Encounter Details Date Type Department Care Team (Late st Contact Info) Description 10/16/2024 12:30 PM SECURITY ALARM INSTALLER Office Visit [facility] Care [address] [place] [address] [address] [place] [address] Jaz Elizabeth PA [address] [place] [address] [address] [place] [address] Sore throat (Primary Dx) Social History Tobacco Use Types [...] Sign Reading Time Taken Comments Blood Pressure 118/78 10/16/2024 12:37 PM SECURITY ALARM INSTALLER Pulse 95 10/16/2024 12:37 PM SECURITY ALARM INSTALLER Temperature 36.6 ??C (97.9 ??F) 10/16/2024 12:[address] Respiratory Rate - - Oxygen Saturation 98% 10/16/2024 12:37 PM SECURITY ALARM INSTALLER Inhaled Oxygen Concentration - - Weight 65.4 kg (144 lb 3.2 oz) 10/16/2024 12:37 PM SECURITY ALARM INSTALLER Height - - Body Mass Index 23.27 09/27/2024 2:54 PM SECURITY ALARM INSTALLER documented in this encounter Patient Instructions * Patient Instructions* Jaz Elizabeth PA - 10/16/2024 12:30 PM SECURITY ALARM INSTALLER Rest as much as possible Increase your fluid intake. Drink Gatorade, Pedialyte, peppermint herbal tea--increase your normal intake of fluids. Honey will help with your cough and sore throat Try humidified air. Wash hands frequently. Avoid contact with others until not contagious. Do not share any drinks, utensils or anything orally Do not eat solid foods if your appetite is off, start with soft, bland foods if needed. For diarrhea--eat a diet of bananas, rice, applesauce and toast and yogurt and try a probiotic and when the diarrhea slows down advance your diet as tolerated For vomiting--clear liquids--start with small amounts and gradually increase, when you are able to drink about a cup or more without vomiting, start eating a diet of bananas, rice, applesauce and toast and then gradually increase your diet to regular foods--don't blas--GO SLOW WITH FLUIDS AND FOODS Warm salt water gargles 8 times a day for sore throats. Take medications as directed until completed. OTC medications can help treat specific symptoms--You may try Claritin/Brandi/Zyrtec, Flonase and XLear for your symptoms Take Tylenol 500 mg every 4-6 hours as needed for pain and/or fevers and/or ibuprofen 600 mg every 6 hours as needed for pain and/or fevers The usual duration of a viral illness is 5 to 7 days, but may last up to 2 weeks, this maybe a viral infection. If you are placed on antibiotics and they are not working or have not improved your illness or symptoms, then more than likely you have a virus. If you develop fevers over 101.4, cough producing significant amount of foul sputum or difficulty breathing, chest pain or any worsening or concerning symptoms go directly to the ER. If your symptoms or overall condition worsen significantly call the office or seek medical care. If your symptoms worsen or do not improve return to the clinic or follow-up with your provider or go to the emergency room. RITY ALARM INSTALLER RITY ALARM INSTALLER * Attachments The following attachments cannot be sent through Care Everywhere. * Sore Throat (Bolivian) documented in this encounter Progress Notes * Jaz Elizabeth PA - 10/16/2024 12:30 PM CST [facility] - [address] [facility] [address] Dept: [phone] Dept Loc: [phone] Loc Date: 10/16/2024 Name: Michelle Gomez : 1985 PCP: Delonte Marin MD Subjective: Patient ID and HPI: Michelle Gomez is a pleasant 39 y.o. female, who presents with a complaint of sore throat. Her symptoms started yesterday. She would like to be tested for strep. Allergy Information as of 10/16/24 No Known Allergies AMOXICILLIN-POT CLAVULANATE Noted Status Severity Type Reaction 06/18/24 1712 [facility] [place] MA 12/24/19 Deleted Medium Side Effect Nausea And Vomiting Current Outpatient Medications on File Prior to Visit Medication Sig Dispense Refill lisdexamfetamine (Vyvanse) 40 MG capsule Take 1 (one) capsule (40 mg total) by mouth every morning.30 capsule 0 SUMAtriptan succinate (IMITREX) 100 MG tablet Take 1 tablet by mouth as needed for Migraine. MAX 2 per day. 9 tablet 5 diclofenac sodium (VOLTAREN) 75 MG EC tablet Take 1 (one) tablet (75 mg total) by mouth 2 (two) times daily. (Patient not taking: Reported on 10/16/2024) 30 tablet 0 hydrOXYzine (ATARAX) 25 MG tablet Take 1 (one) tablet (25 mg total) by mouth nightly as needed for Itching. (Patient not taking: Reported on 10/16/2024) 30 tablet 0 No current facility-administered medications on file prior to visit. Past Medical History: Diagnosis Date Carpal tunnel syndrome Neck disc problems.Sees chiropractor and Celebrex Cervical spondylosis 12/21/2019 Migraines Saw Adolph. Uses Imitrex and nortriptyline. Less migraines since Mirena out. Past Surgical History: Procedure Laterality Date Carpal tunnel release Left 09/12/2015 Left hand carpal tunnel release./Justin Carpal tunnel release Right 10/24/2015 Right hand carpal tunnel release./Quilcene Foot surgery Left bunionectomy Hysteroscopy w/ endometrial ablation 03/25/2024 Dr Sears Laparoscopic total hysterectomy 09/18/2024 Dr Roger at [facility] Left oophorectomy 01/21/2024 Salpingectomy Bilateral 01/21/2024 Review of Systems Constitutional: Negative for chills, fever and malaise/fatigue. HENT: Positive for sore throat. Negative for congestion, ear pain and sinus pain. Respiratory: Negative for cough. Gastrointestinal: Negative for abdominal pain, diarrhea, nausea and vomiting. Musculoskeletal: Negative for myalgias. Neurological: Negative for headaches. Objective: Blood pressure 118/78, pulse 95, temperature 36.6 ??C (97.9 ??F), temperature source Temporal, weight 65.4 kg (144 lb 3.2 oz), SpO2 98%. Physical Exam Vitals and nursing note reviewed. Constitutional: General: She is not in acute distress. Appearance: Normal appearance. She is normal weight. She is not ill-appearing, toxic-appearing or diaphoretic. HENT: Head: Normocephalic and atraumatic. Comments: No sinus pain with palpation Ears: Comments: Bilateral TMs bulging with displaced reflective light Nose: Congestion and rhinorrhea present. Mouth/Throat: Mouth: Mucous membranes are moist. Pharynx: Posterior oropharyngeal erythema (mild) present. Eyes: Conjunctiva/sclera: Conjunctivae normal. Cardiovascular: Rate and Rhythm: Normal rate and regular rhythm. Heart sounds: Normal heart sounds. Pulmonary: Effort: Pulmonary effort is normal. Breath sounds: Normal breath sounds. Musculoskeletal: General: Normal range of motion. Cervical back: Normal range of motion and neck supple. No rigidity or tenderness. Lymphadenopathy: Cervical: Cervical adenopathy present. Skin: General: Skin is warm and dry. Neurological: Mental Status: She is alert. Assessment/Orders: Diagnoses and all orders for this visit: Sore throat - AMB POCT Rapid Strep A Other orders - fluticasone NASAL (FLONASE) 50 MCG/ACT nasal spray; 2 (two) sprays by Nasal route daily. to each nostril - cetirizine (ZYRTEC) 10 MG tablet; Take 1 (one) tablet (10 mg total) by mouth daily as needed for Allergies. Results for orders placed or performed in visit on 10/16/24 AMB POCT Rapid Strep A Collection Time: 10/16/24 12:48 PM Result Value Ref Range Rapid Strep A Screen Negative Negative, Detected, Not Detected No results available. Follow up known depression: PHQ-9 Report Update data Moderate Depression based on last PHQ-9 Total Score: 11 (08/20/2024 9:08 AM) PHQ-2 Total Score: 3 (08/20/2024 9:08 AM) PHQ-9 Total Score: 11 (08/20/2024 9:08 AM) Plan: Patient was given a prescription for Flonase and Zyrtec. She was given home care instructions with instructions to return for worsening symptoms. She was given a note for work. Signed: SYLVIE Jacques disclaimer This dictation was partially electronically transcribed via [email or web address]. I endeavor to checkon the accuracy of the booth cleaner, but at times nonsensical statements inadvertently make it through the proofreading process. Cosigned by Belén Gotti DO at 10/22/2024 9:17 AM SECURITY ALARM INSTALLER RITY ALARM INSTALLER RITY ALARM INSTALLER Associated attestation - Belén Gotti DO - 10/22/2024 9:17 AM SECURITY ALARM INSTALLER I have read the documentation and agree with the PAC Treatment plan. documented in this encounter Plan of Treatment Not on file documented as of this encounter Goals Goal Patient Goal Type Associated Problems Recent Progress Patient-Stated? Author Blood Pressure < 140/90 Blood Pressure 118/82(2024 10:05 AM SECURITY ALARM INSTALLER) No Delonte Marin MD Use sunscreen daily Lifestyle No Divya Cr, RN Frequent Skin Checks Lifestyle No Divya Cr, RN documented as of this encounter Procedures Procedure Name Priority Date/Time Associated Diagnosis Comments AMB POCT RAPID STREP A Routine 10/16/2024 12:48 PM SECURITY ALARM INSTALLER Sore throat documented in this encounter Results * AMB POCT Rapid Strep A (10/16/2024 12:48 PM SECURITY ALARM INSTALLER) [facility] Rapid Strep A Screen Negative Negative, Detected, Not Detected [facility] POCTS 10/16/2024 12:4 8 PM SECURITY ALARM INSTALLER Jaz MERCER POINT OF CARE TEST RAIZA TUCKER Final Result [facility] POCTS documented in this encounter Visit Diagnoses Diagnosis Sore throat- Primary Acute pharyngitis documented in this encounter Additional Health Concerns Assessment Noted Time PHQ-9 Depression Total Score: 11 024 9:08 AM CDT A Depression follow-up plan has been documented for the patient 05/03/2024 5:12 PM CDT documented as of this encounter Care Teams It Program Auditor Relationship Specialty Start Date End Date Delonte Marin MD [address] [facility] [address] [place], [place] [id number] PCP - General Podiatry 08/23/15 Roshni Pop APRN [address] [facility] [address] [place] [address] Nurse Practitioner Behavioral Health 07/23/24 documented as of this encounter
--- OUTSIDE RECORDS SUMMARY | 2024-11-30 10:11 | XMS_ITS | Encounter Summary ---
Author Organization [facility] Address [address] [place], [place] [address] Care Team Providers Care Firearms Instructor Name Role Phone Delonte Marin MD Primary Care Provider [phone]- [phone] Roshni Pop APRN Unavailable [phone] Encounter Details Date Type Department Care Team (Latest Contact Info) Description 09/27/2024 Travel Social History Tobacco Use Types Packs/Day Years [...] < 140/90 Blood Pressure 118/82(2024 10:05 AM EXCEPTIONAL CHILDREN'S TEACHER) No Delonte Marin MD Use sunscreen daily Lifestyle No Divya Cr, RN Frequent Skin Checks Lifestyle No Divya Cr, RN documented as of this encounter Visit Diagnoses Not on filedocumented in this encounter Additional Health Concerns Assessment Noted Time PHQ-9 Depression Total Score: 11 024 9:08 AM CDT A Depression follow-up plan has been documented for the patient 05/03/2024 5:12 PM CDT documented as of this encounter Care Teams Firearms Instructor Relationship Specialty [place] [address] [place] [address] [address] [place] [address] PCP - General Podiatry 08/23/15 Roshni Pop APRN [address] [place] [address] [address] [facility] [place] [address] Nurse Practitioner Behavioral Health 07/23/24 documented as of this encounter
--- OUTSIDE RECORDS SUMMARY | 2024-11-30 10:11 | XMS_ITS | Encounter Summary ---
Author Organization [employer] Address [address] [place] [address] Care Team Providers Care Dance Historian Name Role Phone Delonte Marin MD Primary Care Provider [phone]- [phone] Roshni Pop PSYCHOLOGY LECTURER Unavailable [phone] Reason for Visit * Diagnostic Cardiology (Routine) - Authorization Not Needed Specialty Diagnoses / Procedures Referred By Contac t Referred To Contact Respiratory Therapy Diagnoses Encounter for cosmetic surgery Send to Patient Access; rlr Procedures EKG 12- LEAD ([facility]) ELECTROCARDIOGRAM [facility] [address] [place] [address] Phone: tel: Referral ID Status Reason Start Date Expiration Date Visits Requested Visits Authorized [id number] Authorization Not Needed 11/20/2024 05/24/2026 1 1 Encounter Details Date Type Department Care Team (Latest Contact Info) Description 11/20/2024 10:44 AM PROFILER HAND - 11/20/2024 11:59 PM PROFILER HAND Hospital Encounter [facility] CARDIOPULM THERAPY [address] [place] [address] Encounter for cosmetic surgery Discharge Disposition: Home [...] on file documented as of this encounter Medications at Time of Discharge diclofenac sodium (VOLTAREN) 75 MG EC tablet Take 1 (one) tablet (75 mg total) by mouth 2 (two) times daily. 30 tablet 07/14/2024 fluvoxamine (LUVOX) 25 MG tablet Take 1 (one) tablet (25 mg total) by mouth nightly. 30 tablet 11/20/2024 SUMAtriptan succinate (IMITREX) 100 MG tabletIndications:M igraine without aura and without status migrainosus, not intractable Take 1 tablet by mouth as needed for Migraine. MAX 2 per day. 9 tablet 5 05/14/2023 Vyvanse 40 MG capsuleIndications: Attention deficit hyperactivity disorder, combined type Take 1 (one) capsule (40 mg total) by mouth every morning. 30 capsule 11/20/2024 documented as of this encounter Plan of Treatment Not on file documented as of this encounter Goals Goal Patient Goal Type Associated Problems Recent Progress Patient-Stated? Author Blood Pressure < 140/90 Blood Pressure 118/82(2024 10:05 AM PROFILER HAND) No Delonte Marin MD Use sunscreen daily Lifestyle No Divya Cr RN Frequent Skin Checks Lifestyle No Divya Cr, RN documented as of this encounter Procedures Procedure Name Priority Date/Time Associated Diagnosis Comments EKG 12- LEAD ([facility]) Routine 11/20/2024 Encounter for cosmetic surgery documented in this encounter Results * EKG 12- lead (Non-Interfaced) (11/20/2024) 11/20/2024 Dillon Owens MD ECG ORDERABLES Final Result documented in this encounter Visit Diagnoses Diagnosis Encounter for cosmetic surgery Other plastic surgery for unacceptable cosmetic appearance documented in this encounter Additional Health Concerns Assessment Noted Time PHQ-9 Depression Total Score: 18 025 10:06 AM PROFILER HAND A Depression follow-up plan has been documented for the patient 05/03/2024 5:12 PM CDT documented as of this encounter Care Teams Dance Historian Relationship Specialty Start Date End Date Delonte Marin MD [address] [facility] [address] [place] [id number] PCP - General Podiatry 08/23/15 Roshni Pop APRN [address] [place] [address] [address] [place] [id number] Nurse Practitioner Behavioral Health 07/23/24 documented as of this encounter
--- OUTSIDE RECORDS SUMMARY | 2024-11-30 10:11 | XMS_ITS | Patient Health Summary ---
Author Organization [facility] Address [address] [place] [address] Care Team Providers Care Fiscal Accountant Name Role Phone Unavailable Primary Care Provider Unavailabl e Note from [facility],non-owned Affiliates and Associated Physician Practices is amultiple site organization consisting of ambulatory clinics and hospital sitesin [place], [place], [place] and [place]. This disclosure is being madepursuant to the Care Everywhere program and may not contain all information available regarding this patient. Last updated 18.[facility] Social History Tobacco Use Types Packs/Day Years Used Date Smoking Tobacco: Never Assessed Sex and Gender Information Value Date Recorded Sex Assigned at Not on file Gender Identity Not on file Sexual Orientation Not on file Procedures * DERMATOPATHOLOGY(Performed 06/26/2023) Results * DERMATOPATHOLOGY (06/26/2023 12:00 AM CDT) Case Report Dermatopathology Report ? Case: [id number] ? Authorizing Provider: ??Juany Hurst MD ?Collected: ? 06/26/2023 12:00 AM ? Ordering Location: ? [facility] DermPath Lab ? Received: ?06/27/2023 10:08 AM ? Pathologist: ? Alexey Norman MD ? Specimens: ?? A) - Skin, right thigh ? B) - Skin, left thigh ? C) - Skin, right abdomen ? 3 2:09 PM T DERMATOPATHOLOGY LABORATORY Final Diagnosis Specimen A. SKIN, right thigh: INTRADERMAL MELANOCYTIC NEVUS WITH CONGENITAL FEATURES (D22.9) Specimen B. SKIN, left thigh: INTRADERMAL MELANOCYTIC NEVUS WITH CONGENITAL FEATURES (D22.9) Specimen C. SKIN, right abdomen: INTRADERMAL MELANOCYTIC NEVUS (D22.5) 3 2:09 PM T DERMATOPATHOLOGY LABORATORY Clinical History A-C: R/O atypia 3 2:09 PM T DERMATOPATHOLOGY LABORATORY Gross Description Specimen A: Received is one formalin filled container labeled with the patient's name and designated right thigh. The specimen consists of a shave biopsy measuring 7x6x1 mm. Jar 0. Specimen B: Received is one formalin filled container labeled with the patient's name and designated left thigh. The specimen consists of a shave biopsy measuring 7x6x2 mm. Jar 0. Specimen C: Received is one formalin filled container labeled with the patient's name and designated right abdomen. The specimen consists of a shave biopsy measuring 6x4x1 mm. Jar 0. 3 2:09 PM T DERMATOPATHOLOGY LABORATORY Microscopic Description Specimen A. SKIN, right thigh: There are nests of cytologically bland melanocytes within the dermis. Some of these melanocytes are concentrated around blood vessels and adnexal structures. Specimen B. SKIN, left thigh: There are nests of cytologically bland melanocytes within the dermis. Some of these melanocytes are concentrated around blood vessels and adnexal structures. Specimen C. SKIN, right abdomen: There are nests of cytologically bland melanocytes within the dermis that mature with depth. 3 2:09 PM T DERMATOPATHOLOGY LABORATORY Disclaimer An external and internal positive and negative controls are appropriate for the histochemical, immunohistochemical and immunofluorescence stain(s) in this case (if any), except where stated explicitly. The performance characteristics of the stain(s) cited in this report were developed and its performance characteristic determined by the Dermatopathology Laboratory at [facility], directed by Dr. Ashanti Norman. These tests need not be, and therefore are not, approved by the [place] Food and Drug Administration. The tests are used for clinical purposes. Billing Codes Specimen Charges Stain Charges 66385 [id number] 53594 1 1 1 3 2:09 PM CDT DERMATOPATHOLOGY LABORATORY Embedded Images 3 2:09 PM CDT DERMATOPATHOLOGY LABORATORY Pathology/Cytology TISSUE SPECIMEN FROM SKIN / Unknown 06/26/2023 06/27/2023 10:08 AM CDT Miscellaneous samples (specimen) TISSUE SPECIMEN FROM SKIN / Unknown 06/26/2023 06/27/2023 10:08 AM CDT Miscellaneous samples (specimen) TISSUE SPECIMEN FROM SKIN / Unknown 06/26/2023 06/27/2023 10:08 AM CDT Juany Hurst MD LAB - PATHOLOGY/CYTO LOGY ORDERABLES DERMATOPATHOLOGY LABORATORY [facility] - Department of Dermatology [address] [phone]
--- OUTSIDE RECORDS SUMMARY | 2024-11-30 10:11 | XMS_ITS | Encounter Summary ---
Author Organization [email or web address] Address [address] [place] [address] Care Team Providers Care Line Erector Name Role Phone Delonte Marin MD Primary Care Provider [phone]- [phone] Encounter Details Date Type Department Care Team (Late st Contact Info) Description 06/23/2024 Orders Only [facility][Note 3] - Counts Include [facility] Care [address] [place] [address] [address] [place] [address] [place] [address] [place] [address] [address] [place] [address] Social History Tobacco Use Types Packs/Day Years [...] < 140/90 Blood Pressure 118/82(2024 10:05 AM NATIONAL GUARD MEMBER) No Delonte Marin MD Use sunscreen daily Lifestyle No Divya Cr, RN Frequent Skin Checks Lifestyle No Divya Cr, RN documented as of this encounter Visit Diagnoses Not on filedocumented in this encounter Additional Health Concerns Infection Onset Date Last Indicated Resolved Time COVID-19 06/18/2024 06/18/2024 07/10/2024 1:20 AM CDT Assessment Noted Time PHQ-9 Depression Total Score: 20 024 2:47 PM CDT A Depression follow-up plan has been documented for the patient 05/03/2024 5:12 PM CDT documented as of this encounter Care Teams Line Erector Relationship Specialty Start Date End Date Delonte Marin MD [address] [facility] [address] [place] [address] PCP - General Podiatry 08/23/15 documented as of this encounter
--- OUTSIDE RECORDS SUMMARY | 2024-11-30 10:11 | XMS_ITS | Encounter Summary ---
Author Organization [employer] Address [address] [place] [address] Care Team Providers Care Electronic Engraver Name Role Phone Delonte Marin MD Primary Care Provider [phone]- [phone] Reason for Visit * Reason Onset Date Comments Results 06/23/2024 Throat culture Encounter Details Date Type Department Care Team ([facility] st Contact Info) Description 06/23/2024 Telephone [facility] Care [address] [place] [address] [address] [place] [address] Kathy Obregon RN [address] [place] [address] [address] [place] [address] Results (Throat culture) Social History Tobacco Use Types Packs/Day Years [...] on file documented as of this encounter Miscellaneous Notes * Telephone Encounter - Kathy Obregon RN - 06/23/2024 9:29 AM CDT Left message to return call about lab results and antibiotic ordered to verify that she received message. * Telephone Encounter - Kathy Obregon RN - 06/23/2024 9:29 AM CDT ----- Message from Lashawn Cheng sent at 06/23/2024 7:46 AM CDT ----- Throat culture shows a staph aureus infection. Will treat with antibiotics as she is still very symptomatic. Sending Rx for Ceftin to her pharmacy. documented in this encounter Plan of Treatment Not on file documented as of this encounter Goals Goal Patient Goal Type Associated Problems Recent Progress Patient-Stated? Author Blood Pressure < 140/90 Blood Pressure 118/82(2024 10:05 AM ELEMENT BURNER) No Delonte Marin MD Use sunscreen daily Lifestyle No Divya Cr RN Frequent Skin Checks Lifestyle No Divya Cr RN documented as of this encounter Visit [...] documented as of this encounter Care Teams Electronic Engraver Relationship Specialty Start Date End Date Delonte Marin MD [address] [facility] [address] [place] [address] PCP - General Podiatry 08/23/15 documented as of this encounter
--- OUTSIDE RECORDS SUMMARY | 2024-11-30 10:11 | XMS_ITS | Encounter Summary ---
Author Organization [employer] Address [address] [place] [address] Care Team Providers Care Honing Job Setter Name Role Phone Delonte Marin MD Primary Care Provider +1- [phone] Reason for Visit * Reason Onset Date Comments Results 06/23/2024 Throat culture Encounter Details Date Type Department Care Team ([facility] st Contact Info) Description 06/23/[address] [facility] Care [address] [place] [address] [address] [place] [address] Kathy Obregon, RN [address] [place] [address] [address] [place] [address] Results (Throat culture) Social History [...] Encounter - Kathy Obregon RN - 06/23/2024 10:01 AM CDT Michelle returned call, reported results per CHRISTIANO Márquez result notes. Michelle verbalized understanding. * Telephone Encounter - Kathy Obregon RN - 06/23/2024 10:00 AM CDT ----- Message from Lashawn Cheng [...] < 140/90 Blood Pressure 118/82(2024 10:05 AM ADULT BASIC EDUCATION MANAGER) No Deolnte Marin MD Use sunscreen daily Lifestyle No [...] documented as of this encounter Care Teams Honing Job Setter Relationship Specialty Start Date End Date Delonte Marin MD [address] [facility] [address] [place] [address] PCP - General Podiatry 08/23/15 documented as of this encounter
--- OUTSIDE RECORDS SUMMARY | 2024-11-30 10:11 | XMS_ITS | Encounter Summary ---
Author Organization [employer] Address [address] [place], [place] [id number] Care Team Providers Care Senior Embedded Software Engineer Name Role Phone Delonte Marin MD Primary Care Provider [phone]- [phone] Roshni Pop APRN Unavailable [phone] Encounter Details Date Type Department Care Team (Latest Contact Info) Description 11/13/2024 Transcribe Orders [facility] [address] [place] [address] Marleny Carrillo, I&C TECHNICIAN [address] [place] [address] Encounter for cosmetic surgery (Primary [...] < 140/90 Blood Pressure 118/82(2024 10:05 AM TECHNICIAN'S HELPER) No Delonte Marin MD Use sunscreen daily Lifestyle No Divya Cr, RN Frequent Skin Checks Lifestyle No Divya Cr, RN documented as of this encounter Results * EKG 12- lead (Non-Interfaced) (11/20/2024) 11/20/2024 us Dillon Owens MD ECG ORDERABLES Final Result [...] documented as of this encounter Care Teams Senior Embedded Software Engineer Relationship Specialty Start Date End Date Delonte Marin MD [address] [place] [address] [place] [id number] PCP - General Podiatry 08/23/15 Roshni Pop APRN [address] [place] [address] [place] [address] Nurse Practitioner Behavioral Health 07/23/24 documented as of this encounter
--- OUTSIDE RECORDS SUMMARY | 2024-11-30 10:11 | XMS_ITS | Encounter Summary ---
Author Organization [facility] [facility] Address [address] [place], [place] [id number] Care Team Providers Care Bulk Sealer Operator Name Role Phone Delonte Marin MD Primary Care Provider [phone]- [phone] Encounter Details Date Type Department Care Team (Latest Contact Info) Description 07/14/2024 Travel Social History Tobacco Use Types Packs/Day [...] < 140/90 Blood Pressure 118/82(2024 10:05 AM WEB UI DESIGNER) No Delonte Marin MD Use sunscreen daily [...] documented as of this encounter Care Teams Bulk Sealer Operator Relationship Specialty Start Date End Date Delonte Marin MD [address] [facility] [address] [place] [address] PCP - General Podiatry 08/23/15 documented as of this encounter
--- OUTSIDE RECORDS SUMMARY | 2024-11-30 10:11 | XMS_ITS | Encounter Summary ---
Author Organization [facility] Address [address] [facility] [place] [address] Care Team Providers Care Leadite Heater Name Role Phone Unavailable Primary Care Provider Unavailabl e Encounter Details Date Type Department Care Team (Late st Contact Info) Description 06/27/2023 Lab Requisition [facility] [address] [facility], [place] [address] Juany Hurst MD [facility] [place] [address] Social History Tobacco Use Types Packs/Day Years Used Date Smoking Tobacco: Never Assessed Sex and Gender Information Value Date Recorded Sex Assigned at Not on file Gender Identity Not on file Sexual Orientation Not on file documented as of this encounter Plan of Treatment Not on file documented as of this encounter Procedures Procedure Name Priority Date/Time Associated Diagnosis Comments DERMATOPATHOLOGY Routine 06/26/2023 12:0 0 AM CDT documented in this encounter Results * DERMATOPATHOLOGY (06/26/2023 12:00 AM CDT) Case Report Dermatopathology Report ? Case: [id number] ? Authorizing Provider: ??Juany Hurst MD ?Collected: ? 06/26/2023 12:00 AM ? Ordering Location: ? [facility] ? Received: ?06/27/2023 10:08 AM ? Pathologist: ? Alexey Norman MD ? Specimens: ?? A) - Skin, right thigh ? B) - Skin, left thigh ? C) - Skin, right abdomen ? 3 2:09 PM CDT DERMATOPATHOLOGY LABORATORY Final Diagnosis Specimen A. SKIN, [...] that mature with depth. 3 2:09 PM CDT DERMATOPATHOLOGY LABORATORY Disclaimer An external and internal positive and negative controls are appropriate for the histochemical, immunohistochemical and immunofluorescence stain(s) in this case (if any), except where stated explicitly. The performance characteristics of the stain(s) cited in this report were developed and its performance characteristic determined by the Dermatopathology Laboratory at [facility], directed by Dr. Ashanti Norman. These tests need not be, and therefore are not, approved by the [place] Food and Drug Administration. The tests are used for clinical purposes. Billing Codes Specimen Charges Stain Charges 02590 [id number] 1 1 1 3 2:09 PM CDT [...] LAB - PATHOLOGY/CYTO LOGY ORDERABLES DERMATOPATHOLOGY LABORATORY [facility] - Department of Dermatology [facility] [facility], 3rd Floor [address] [phone] documented in this encounter Visit Diagnoses Not on filedocumented in this encounter
--- OUTSIDE RECORDS SUMMARY | 2024-11-30 10:11 | XMS_ITS | Encounter Summary ---
Author Organization [employer] Address [address] [place] [address] Care Team Providers Care Jordan Man Name Role Phone Delonte Marin MD Primary Care Provider [phone]- [phone] Encounter Details Date Type Department Care Team (Latest Contact Info) Description 06/20/2024 2:27 PM CDT - 06/20/2024 11:59 PM CDT Hospital Encounter [facility] [address] [place] [id number] Sore throat Discharge Disposition: Home - Discharge to Home [...] this encounter Medications at Time of Discharge SUMAtriptan succinate (IMITREX) 100 MG tabletIndications :Migraine without aura and without status migrainosus, not intractable Take 1 tablet by mouth as needed for Migraine. MAX 2 per day. 9 tablet 5 05/14/2023 diphenhydrAMINE (BENADRYL) 12.5 MG/5ML elixir Gargle, swish and swallow 5 mL four times daily and at bedtime. May gargle/ swish and spit every two hours. 1800 mL 06/20/2024 08/06/2024 escitalopram (LEXAPRO) 10 MG tablet Take 1 (one) tablet by mouth daily. 90 tablet 3 01/13/2024 07/23/2024 documented as of this encounter Plan of Treatment Not on file documented as of this encounter Goals Goal Patient Goal Type Associated Problems Recent Progress Patient-Stated? Author Blood Pressure < 140/90 Blood Pressure 118/82(2024 10:05 AM INSET CUTTER) No Delonte Marin MD Use sunscreen daily Lifestyle No Divya Cr, RN Frequent Skin Checks Lifestyle No Divya Cr, RN documented as of this encounter Procedures Procedure Name Priority Date/Time Associated Diagnosis Comments THROAT CULTURE Routine 06/20/2024 2:27 PM CDT Sore throat documented in this encounter Results * (ABNORMAL) Throat culture (06/20/2024 2:27 PM CDT) Specimen Description THROAT 06/20/2024 3:37 PM T [facility] Special Requests THROAT 06/20/2024 3:37 PM [facility] Culture Results STAPHYLOCOCCUS AUREUS OXACILLIN (METHICILLIN) SUSCEPTIBLE STAPHYLOCOCCI CAN BE CONSIDERED SUSCEPTIBLE TO BETA-LACTAM COMBINATION AGENTS, CARBAPENEMS, AND ALL ORAL AND PARENTERAL CEPHEMS INCLUDING BUT NOT LIMITED TO CEFAZOLIN.(P) 06/23/2024 7:24 AM [facility] Throat STRUCTURE OF ANTERIOR PORTION OF NECK / Unknown 06/20/2024 2:27 PM CDT 06/20/2024 3:38 PM CDT Narrative Organism Antibiotic Method Susceptibility Staphylococcus aureus Amoxicillin + Clavulanate IRISH SE NSITIVITY <=4/2: SUSCEPTIBLE Staphylococcus aureus Ampicillin IRISH SENSITIVITY 8: RESISTANT Staphylococcus aureus AMP/SULBAC IRISH SENSITIVITY <=8/4: SUSCEPTIBLE Staphylococcus aureus Azithromycin IRISH SENSITIVITY <=2: SUSCEPTIBLE Staphylococcus aureus Cefazolin IRISH SENSITIVITY <=8: SUSCEPTIBLE Staphylococcus aureus CEFTAROLINE IRISH SENSITIVITY <=0.5: SUSCEPTIBLE Staphylococcus aureus Ceftriaxone IRISH SENSITIVITY <=8: SUSCEPTIBLE Staphylococcus aureus Ciprofloxacin IRISH SENSITIVITY <=1: SUSCEPTIBLE Staphylococcus aureus Clindamycin IRISH SENSITIVITY <=0.5: SUSCEPTIBLE Staphylococcus aureus Daptomycin IRISH SENSITIVITY <=1: SUSCEPTIBLE Staphylococcus aureus Erythromycin IRISH SENSITIVITY <=0.25: SUSCEPTIBLE Staphylococcus aureus Gentamicin IRISH SENSITIVITY <=4: SUSCEPTIBLE Staphylococcus aureus Levofloxacin IRISH SENSITIVITY <=1: SUSCEPTIBLE Staphylococcus aureus Linezolid IRISH SENSITIVITY <=2: SUSCEPTIBLE Staphylococcus aureus Meropenem IRISH SENSITIVITY <=4: SUSCEPTIBLE Staphylococcus aureus Oxacillin IRISH SENSITIVITY <=0.25: SUSCEPTIBLE Comment:OXACILLIN (M ETHICILLIN) SUSCEPTIBLE STAPHYLOCOCCI CAN BE CONSIDERED SUSCEPTIBLE TO BETA-LACTAM COMBINATION AGENTS, CARBAPENEMS, AND ALL ORAL AND PARENTERAL CEPHEMS INCLUDING BUT NOT LIMITED TO CEFAZOLIN. Staphylococcus aureus Penicillin G IRISH SENSITIVITY 8: RESISTANT Staphylococcus aureus Piperacillin + Tazobactam IRISH SE NSITIVITY <=4: SUSCEPTIBLE Staphylococcus aureus Rifampin IRISH SENSITIVITY <=1: SUSCEPTIBLE Staphylococcus aureus Tetracycline IRISH SENSITIVITY <=4: SUSCEPTIBLE Staphylococcus aureus Trimethoprim + Sulfamethoxazole IRISH SENSITIVITY <=0.5/9.5: SUSCEPTIBLE Staphylococcus aureus Vancomycin IRISH SENSITIVITY 1: SUSCEPTIBLE us Melania Cheng MATRIX DRIER TENDER MICROBIOLOGY - GENERAL ORDERA BLES Final Result [facility] [address] [place], [place] [phone] [facility] [address] [place] [address] documented in this encounter Visit Diagnoses Diagnosis Sore throat Acute pharyngitis documented in this encounter Additional Health Concerns Infection Onset Date Last Indicated Resolved Time COVID-19 06/18/2024 06/18/2024 07/10/2024 1:20 AM CDT Assessment Noted Time PHQ-9 Depression Total Score: 20 024 2:47 PM CDT A Depression follow-up plan has been documented for the patient 05/03/2024 5:12 PM CDT documented as of this encounter Care Teams Jordan Man Relationship Specialty Start Date End Date Delonte Marin MD [address] [facility] [address] [place] [address] PCP - General Podiatry 08/23/15 documented as of this encounter
--- OUTSIDE RECORDS SUMMARY | 2024-11-30 10:11 | XMS_ITS | Referral Summary ---
Author Organization [facility] Address [address] [place] [address] Care Team Providers Care Staff Submarine Warfare Officer Name Role Phone Unavailable Primary Care Provider Unavailabl e Source Comments [facility],non-owned Affiliates and Associated Physician Practices is amultiple site organization consisting of ambulatory clinics and hospital sitesin [place], [place], [place] and [place]. This disclosure is being madepursuant to the Care Everywhere program and may not contain all information available regarding this patient. Last updated 18.[facility] Social History Tobacco Use Types Packs/Day Years Used Date Smoking Tobacco: Never Assessed Sex and Gender Information Value Date Recorded Sex Assigned at Not on file Gender Identity Not on file Sexual Orientation Not on file Plan of Treatment Not on file
--- OUTSIDE RECORDS SUMMARY | 2024-11-30 10:12 | XMS_ITS | Encounter Summary ---
Author Organization [employer] Address [address] [place] [address] Care Team Providers Care Draw Frame Tender Name Role Phone Delonte Marin MD Primary Care Provider [phone]- [phone] Encounter Details Date Type Department Care Team ([facility] st Contact Info) Description 09/11/2023 Orders Only [facility] Dermatology [address] [place] [address] Sailaja Bianchi LPN [address] [place] [address] Acne, unspecified acne type (Primary Dx) Social History Tobacco Use Types Packs/Day Years Used Date Smoking Tobacco: Never Smokeless Tobacco: Never Alcohol Use Standard Drinks/Week Comments No 0 (1 standard drink = 0.6 oz pur e alcohol) PHQ-2 Answer Date Recorded PHQ-2 Total Score 0 08/20/2023 Comments Unknown Sex and Gender Information Value [...] < 140/90 Blood Pressure 118/82(2024 10:05 AM BEHAVIORAL HEALTH CARE COORDINATOR) No Delonte Marin MD Use sunscreen daily Lifestyle No Divya Cr, RN Frequent Skin Checks Lifestyle No Divya Cr, RN documented as of this encounter Visit Diagnoses Diagnosis Acne, unspecified acne type- Primary documented in this encounter Additional Health Concerns Assessment Noted Time PHQ-9 Depression Total Score: 0 10/07/20 10:06 AM BEHAVIORAL HEALTH CARE COORDINATOR documented as of this encounter Care Teams Draw Frame Tender Relationship Specialty Start Date End Date Delonte Marin MD [address] [facility] [address] [place] [address] PCP - General Podiatry 08/23/15 documented as of this encounter
--- OUTSIDE RECORDS SUMMARY | 2024-11-30 10:12 | XMS_ITS | Encounter Summary ---
Author Organization [employer] Address [address] [place] [address] Care Team Providers Care Fiber Optic Technician Name Role Phone Delonte Marin MD Primary Care Provider +1- [phone] Reason for Visit * Reason Comments Skin Check Encounter Details Date Type Department Care Team (Late st Contact Info) Description 06/26/2023 9:00 AM CDT Office Visit [facility] Dermatology [address] [place] [address] Juany Hurst MD [address] [place] [address] Neoplasm of uncertain behavior of skin (Primary Dx); Viral warts, unspecified type; Diffuse photodamage of skin; Nevus; Tan angioma; Seborrheic keratoses; Skin sensation disturbance Social History Tobacco Use Types Packs/Day Years Used Date Smoking Tobacco: Never Smokeless Tobacco: Never Alcohol Use Standard Drinks/Week Comments No 0 (1 standard drink = 0.6 oz pur e alcohol) PHQ-2 Answer Date Recorded PHQ-2 Total Score 0 02/05/2022 Comments Unknown Sex and Gender Information Value Date Recorded Sex Assigned at Not on file Legal Sex Female 4:27 PM CDT Gender Identity Not on file Sexual Orientation Not on file 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 HISTORY OF PRESENT ILLNESS: Michelle Gomez is a very pleasant 37 y.o. female presenting to clinic for the above concern. ?? The patient has multiple skin lesions of concern. ?? They are located on the head, trunk and extremities. ?? Lesions are of variable color and texture. ?? Duration of lesions present is for months to years. ?? Symptoms include none. ?? Aggravating/alleviating factors include: None. Didn't have much peeling with her TCA peel for the flat warts on hands. Wonders how to improve response. Has some irritated spots on the torso and a few moles she's conerned about. REVIEW OF SYSTEMS: no weight loss, fever, night sweats and feels well negative with no mouth dryness or sores PAST DERMATOLOGIC HISTORY: Past Medical History: Diagnosis Date ??? Carpal tunnel syndrome Neck disc problems.Sees chiropractor and Celebrex ??? Cervical spondylosis 12/21/2019 ??? Migraines Saw Primitivohillary. Uses Imitrex and nortriptyline. Less migraines since Mirena out. PROBLEM LIST: Patient Active Problem List Diagnosis ??? Seborrheic keratoses ??? Neck pain ??? Cervicocranial syndrome of cervical region ??? Cervical spondylosis ??? Visual changes ??? Ophthalmic migraine ??? Chronic fatigue ??? OCD (obsessive compulsive disorder) ??? Anxiety ??? Lumbar back pain ??? Sore throat FAMILY HISTORY: Negative for malignant melanoma in family members. 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 fluticasone NASAL (FLONASE) 50 MCG/ACT nasal spray, 0 ??? loratadine (CLARITIN) 10 MG tablet, 0 ??? magnesium 200 MG TABS tablet, 0 ??? nortriptyline (PAMELOR) 10 MG capsule, 0 ??? SUMAtriptan succinate (IMITREX) 100 MG tablet, 0 ALLERGIES: Allergies Allergen Reactions ??? Augmentin [Amoxicillin-Pot Clavulanate] Nausea And Vomiting PHYSICAL EXAMINATION: ?? Constitutional: This is a A well-developed, well-nourished female in no acute distress. The patient is alert and oriented and able to ambulate without any assistive devices. ?? Psych: Patient is Pleasant. ?? Eyes: Eyelids and conjunctivae are without rash or lesion. ?? ENT: The lips, tongue and gingiva are normal ?? Integumentary: The patient is Florence skin type II. Skin examination included the following at patient request: ??? Scalp ??? Head ??? Neck ??? Chest ??? Abdomen ??? Buttocks ??? Back ??? Right upper extremity ??? Left upper extremity ??? Right lower extremity ??? Left lower extremity ??? Digits, fingernails and toenails Pertinent findings include: Sun damaged skin with signs of photoaging in a sun- exposed distribution. Bright tan red papules on the trunk and extremities. There are multiple waxy brown stuck-on papules on the trunk. Small benign appearing nevi throughout. Inflamed, roque papules to the right abdomen, right thigh, and left thigh. 3 inflamed, verrucous papules to the right leg. Scattered flat pink papules to dorsal hands. RESULTS REVIEW: prior medical documents IMPRESSION & PLAN: Tumor of skin, uncertain behavior. Site: A. Right thigh B. Left thigh C. Right abdomen Differential diagnosis: A-C. Irritated nevus After obtaining informed consent for removal and photography, the area was photographed, prepped and draped in the usual fashion. Anesthesia was obtained with 1% lidocaine with epinephrine. The lesion was clinically removed in its entirety by shave technique with a small margin of normal appearing skin. Lesion size noted at A: 0.8x0.8cm; B: 0.7x0.8cm; C: 0.5x0.5cm. Hemostasis obtained with pressure and aluminum chloride. Wound care discussed. Specimen sent for dermatopathology. Results anticipated within 15 business days. Warts, painful. Treatment options were reviewed with the patient including observation, home therapy with OTC salicylic acid, treatment with rx compounded WartPeel, or in- office procedures such as destruction with cryotherapy/cantharone or immunotherapy with [place] Bri. Patient elected to proceed with cryotherapy x 3. For the flat warts, suggest tazorac pretreatment x 2 weeks. Sun damaged skin. Photoprotection was emphasized and reviewed. I advise an SPF 30+ sunscreen to all exposed areas on a daily basis. AAD skin cancer handout was reviewed, noting warning signs of skin cancer. Seborrheic keratoses. These are common, benign growths and the patient was reassured. Tan angiomas. The benign nature of the skin lesion(s) was discussed with the patient. No treatment is required. Irecommend continued observation. Should symptoms or changes develop related to this condition, I would recommend a return visit for reassessment. Multiple nevi. The ABCDE criteria for melanoma was reviewed with the patient. None of the patient's nevi reach theclinical threshold for biopsy. I recommend continued sun protection, self-skin examinations, and observation. Should any of the patient's nevi change in size, color, texture, or shape or develop symptoms such as itching or bleeding, I recommend an immediate return visit for reassessment. DISPOSITION: Follow up annually. Juany Hurst MD Department of Dermatology [facility] documented in this encounter Plan of Treatment Not on file documented as of this encounter Goals Goal Patient Goal Type Associated Problems Recent Progress Patient-Stated? Author Blood Pressure < 140/90 Blood Pressure 118/82(2024 10:05 AM PARTS INSPECTOR) No Delonte Marin MD Use sunscreen daily Lifestyle No Divya Cr, RN Frequent Skin Checks Lifestyle No Divya Cr, RN documented as of this encounter Procedures Procedure Name Priority Date/Time Associated Diagnosis Comments TISSUE EXAM Routine 06/26/2023 3:15 PM CDT Neoplasm of uncertain behavior of skin documented in this encounter Results * Tissue Exam (06/26/2023 3:15 PM CDT) Tissue us Juany Hurst MD PATHOLOGY/CYTOLOGY ORDERABLES Fi nal Result EXTERNAL NON UPH - NO INTERFACE documented in this encounter Visit Diagnoses Diagnosis Neoplasm of uncertain behavior of skin- Primary Viral warts, unspecified type Diffuse photodamage of skin Other chronic dermatitis due to solar radiation Nevus Benign neoplasm of skin, site unspecified Tan angioma Nevus, non-neoplastic Seborrheic keratoses Skin sensation disturbance Disturbance of skin sensation documented in this encounter Additional Health Concerns Assessment Noted Time PHQ-9 Depression Total Score: 0 10/07/20 19 10:06 AM PARTS INSPECTOR documented as of this encounter Care Teams Fiber Optic Technician Relationship Specialty Start Date End Date Delonte Marin MD [address] [facility] [address] [place] [address] PCP - General Podiatry 08/23/15 documented as of this encounter
--- OUTSIDE RECORDS SUMMARY | 2024-11-30 10:12 | XMS_ITS | Encounter Summary ---
Author Organization [employer] [facility] Address [address] [place], [place] [id number] Care Team Providers Care Mental Health Aide Name Role Phone Delonte Marin MD Primary Care Provider +1- [phone] Encounter Details Date Type Department Care Team (Latest Contact Info) Description 04/27/2024 Travel Social History Tobacco Use Types Packs/Day [...] < 140/90 Blood Pressure 118/82(2024 10:05 AM LAWN MOWER) No Delonte Marin MD Use sunscreen daily [...] documented as of this encounter Care Teams Mental Health Aide Relationship Specialty Start Date End Date Delonte Marin MD [address] [facility] [address] [place] [address] PCP - General Podiatry 08/23/15 documented as of this encounter
--- OUTSIDE RECORDS SUMMARY | 2024-11-30 10:12 | XMS_ITS | Encounter Summary ---
Author Organization [employer] Address [address] [place] [address] Care Team Providers Care Inking Machine Tender Name Role Phone Delonte Marin MD Primary Care Provider +1- [phone] Encounter Details Date Type Department Care Team (Latest Contact Info) Description 06/26/2023 Travel Social History Tobacco Use Types Packs/Day [...] < 140/90 Blood Pressure 118/82(2024 10:05 AM PARAPROFESSIONAL AIDE) No Delonte Marin MD Use sunscreen daily Lifestyle No Divya Cr, RN Frequent Skin Checks Lifestyle No Divya Cr, RN documented as of this encounter Visit Diagnoses Not on filedocumented in this encounter Additional Health Concerns Assessment Noted Time PHQ-9 Depression Total Score: 0 10/07/20 19 10:06 AM PARAPROFESSIONAL AIDE documented as of this encounter Care Teams Inking Machine Tender Relationship Specialty Start Date End Date Delonte Marin MD [address] [facility] [address] [place] [address] PCP - General Podiatry 08/23/15 documented as of this encounter
--- OUTSIDE RECORDS SUMMARY | 2024-11-30 10:12 | XMS_ITS | Encounter Summary ---
Author Organization [facility] Address [address] [place], [place] [id number] Care Team Providers Care School Psychological Examiner Name Role Phone Delonte Marin MD Primary Care Provider +1- [phone] Reason for Referral * Referral (Routine) - Authorization Not Needed Specialty Diagnoses / Procedures Referred By Contac t Referred To Contact Behavioral Health Diagnoses Panic attack Anxiety Seizure-like activity Delonte Marin MD [address] [facility] [address] [place] [address] Phone: tel: fax: Roshni Pop, DIRECTOR OF HEMOPHILIA [address] [facility] [address] [place] [address] Phone: tel: fax: Referral ID Status Reason Start Date Expiration Date Visits Requested Visits Authorized Authorization Not Needed Specialty Services Required 11/04/2025 1 1 * Neurodiagnostic (Routine) - Authorization Not Needed Specialty Diagnoses / Procedures Referred By Contac t Referred To Contact Diagnoses Panic attack Seizure-like activity Procedures EEG Routine Delonte Marin MD [address] [facility] [address] [place] [address] Phone: tel: fax: Referral ID Status Reason Start Date Expiration Date Visits Requested Visits Authorized [id number] Authorization Not Needed 04/20/2024 10/22/2025 1 1 Reason for Visit * Reason Comments Anxiety Encounter Details Date Type Department Care Team (Late st Contact Info) Description 04/20/2024 2:30 PM CDT Office Visit [address] [place] [address] Delonte Marin MD [address] [place] [address] [address] [place] [address] Panic attack (Primary Dx); Anxiety; Seizure-like activity Social History Tobacco Use Types Packs/Day Years [...] Sign Reading Time Taken Comments Blood Pressure 128/80 04/20/2024 2:52 PM CDT Pulse 86 04/20/2024 2:52 PM CDT Temperature 36.5 ??C (97.7 ??F) 04/20/2024 2:52 PM CD T Respiratory Rate - - Oxygen Saturation 98% 04/20/2024 2:52 PM CDT Inhaled Oxygen Concentration - - Weight 66.6 kg (146 lb 12.8 oz) 04/20/2024 2:52 PM CDT Height - - Body Mass Index 23.69 03/27/2023 9:15 AM CDT documented in this encounter Progress Notes * Delonte Marin MD - 04/20/2024 2:30 PM CDT Subjective Patient ID: Michelle is a 38 y.o. female. CC: Michelle Gomez is a 38 y.o. patient is seen today 04/20/2024 for Chief Complaint Patient presents with Anxiety NOTE: Abbreviations, medical idioms and medical terminology are frequently used in office visit notes. Please call my nurse if you have questions about what an idiom means. (examples = CC, HPI, ROS, FU, HTN, DM, SOB, PERERA, TM, WCC, etc.) HPI Anxiety. My anxiety is worse. No cause. Dr Farfan / Neuro stopped my Lexapro due to my migraines. She is seen for anxiety. Ihe is presently not fully controlled. This was diagnosed several years ago. She presently takes nothing presently. She denies suicidal ideation. PHQ-2 Total Score: 6 GAD7 Feeling nervous / anxious / on edge: Nearly every day Unable to stop or control worrying: Nearly every day Worrying too much about different things: Nearly every day Trouble relaxing: Nearly every day Restlessness / difficulty sitting still: Nearly every day Becoming easily annoyed / irritable: Nearly every day Fear that something awful might happen: Nearly every day Total Score (Calculated): 21 Score 15 - 21: This score suggests a degree of severe anxiety disorder as reported by the subject answering the questions. The evaluation should be continued with more specific test and treatment should be started if it wasn???t already. Depression Screen: Positive Screening based on last PHQ-9 Total Score: 20 (04/20/2024 2:47 PM) PHQ-9 Report Update data Follow up for Positive Depression Screen: - Care: Patient expressed understanding of self-monitoring and will follow up with PCP or Mental Health health clinician as necessary Panic attacks. For 4 years. I have occasional panic attacks. I have an intense fear and feel like Tez going to . It sometimes happens when I am in the shower. They last 10 - 15 seconds, no shakesor tremors, no LOC, sometimes I have mild nausea. I have trouble breathing. Then I feel tired afterwards, sort of like a hangover. Patient is seen for panic attacks. This is a chronic problem. She is presently at baseline. See medication list for current anxiety medications. She takes her medication consistently and has no side effects. She denies suicidal ideation. - Care: Patient expressed understanding of self-monitoring and will follow up with PCP or Mental Health health clinician as necessary Migraines. Sees Neuro Review of Systems A 14-point ROS was performed. Additional ROS detailed in the HPI. Constitutional: . No fever. No chills. . HEENT: . No sore throat . No earache. . Eyes: . No diplopia. No vision changes. . Respiratory: . No cough. No dyspnea. . Cardiovascular: . No chest pain. No edema. . Gastrointestinal: . No diarrhea. No nausea. . Endocrine: . No excessive thirst. . Musculoskeletal: . No muscle pain. No bone pain. . Genitourinary: . No hematuria . No bladder pain. . Skin: . No rash. Not pale. . Neurological: . No paresthesia. No tremors. . Allergic/Immunologic: . No rhinitis. No hives. . Hematological: . No bleeding. Not pale. No LA. . Psychiatric/Behavioral: . No amnesia. Has anxiety.. . Objective BP 128/80 Pulse 86 Temp 36.5 ??C (97.7 ??F) Wt 66.6 kg (146 lb 12.8 oz) SpO2 98% BMI 23.69 kg/m?? Physical Exam Constitutional: Oriented to person, place, and time. Well-developed. Well- nourished. . . . Head: Normocephalic and atraumatic. . . . Eyes:. . . . ENT:. . . . Neck: Supple. Normal range of motion. . . . Pulmonary/Chest: Normal effort. No respiratory distress. Normal breath sounds. No wheezing. . . . Cardiovascular: Normal rate. Regular rhythm. Normal heart sounds. No murmur. . . . Abdominal: Soft. Normal bowel sounds. No guarding. No rebound. No mass. . . . Musculoskeletal: Normal range of motion. Normal strength. Normal gait. . . . . GenitoUrinary: No bladder tenderness. No distention. . . . Neurological: Sensation intact. Normal co-ordination. . . . Skin: Skin is warm and dry. Not pale. No lesions. . . . Lymph:. . . . Psychiatric: Mood and affect normal. Behavior is normal. Judgment and thought content normal. . . . Current medications: escitalopram (LEXAPRO) 10 MG tablet fluticasone NASAL (FLONASE) 50 MCG/ACT nasal spray magnesium 200 MG TABS tablet SUMAtriptan succinate (IMITREX) 100 MG tablet [DISCONTINUED] benzonatate (TESSALON) 200 MG capsule [DISCONTINUED] loratadine (CLARITIN) 10 MG tablet [DISCONTINUED] nortriptyline (PAMELOR) 10 MG capsule [DISCONTINUED] tazarotene (Tazorac) 0.1 % cream Assessment & Plan Problem List Items Addressed This Visit Anxiety Relevant Orders Amb Ref to Behavioral Health Panic attack - Primary Relevant Orders EEG Routine Amb Ref to Behavioral Health Seizure-like activity Relevant Orders EEG Routine Amb Ref to Behavioral Health BMI: Body mass index is 23.69 kg/m??. Wt Readings from Last 3 Encounters: 04/20/24 66.6 kg (146 lb 12.8 oz) 01/13/24 68 kg (150 lb) 03/27/23 68.5 kg (151 lb) ASSESSMENT & PLAN: 1. Panic attack STATUS: occasional Panic attacks. Discussed. Discussed that it is harder to control Panic vs Anxiety. RECOMMENDATIONS: Try to avoid stressful situations. FOLLOW UP: Follow up as needed.. Telephone us or return to office if worse. MEDICATION: Will allow Mental Health to decide on medication. ORDERS: - EEG Routine; Future - Amb Ref to Behavioral Health 2. Anxiety STATUS: Anxiety is uncontrolled on medication. RECOMMENDATIONS: Take medication as directed. Do not skip doses. FOLLOW UP: Follow up as needed.. Telephone us or return to office if worse. MEDICATION: Will allow Mental Health to decide on medication. ORDERS: Depression Screen: Positive Screening based on last PHQ-9 Total Score: 20 (04/20/2024 2:47 PM) PHQ-9 Report Update data Follow up for Positive Depression Screen: - Care: Patient expressed understanding of self-monitoring and will follow up with PCP or Mental Health health clinician as necessary - Amb Ref to Behavioral Health 3. Seizure-like activity STATUS: possible seizure like activity. RECOMMENDATIONS: FOLLOW UP: Follow up in six months. Telephone us or return to office if worse. MEDICATION: ORDERS: - EEG Routine; Future - Amb Ref to Behavioral Health Questions have been answered. Patient verbalizes understanding and agreement with the plan. Education has been provided. ORDERS:No orders of the defined types were placed in this encounter. TESTS: No visits with results within 8 Day(s) from this visit. Latest known visit with results is: Office Visit on 12/04/2023 Component Date Value Ref Range Status RSV Rapid Ag 12/04/2023 Negative Negative Final Delonte Marin. Alexey.Mark Next Visit: Follow up in about 3 months (around 07/21/2024), or if symptoms worsen or fail to improve. documented in this encounter Plan of Treatment Scheduled Referrals Name Type Priority Associated Diagnoses Order Schedule Amb Ref to Behavioral Health Outpatient Referral Routine Panic attack Anxiety Seizure-like activity (HCC) Ordered: 05/03/2024 documented as of this encounter Goals Goal Patient Goal Type Associated Problems Recent Progress Patient-Stated? Author Blood Pressure < 140/90 Blood Pressure 118/82(2024 10:05 AM QUALITY CONTROL) No Delonte Marin MD Use sunscreen daily Lifestyle No Divya Cr RN Frequent Skin Checks Lifestyle No Divya Cr RN documented as of this encounter Results * EEG Routine (04/27/2024 8:30 AM CDT) Narrative Gordon Claudio MD - 04/27/2024 8:30 AM CDT Gordon Claudio MD ? 05/13/2024 ??8:24 PM [facility] Accredited EEG Laboratory [address] [place] [address] ex [id number] Electroencephalogram (EEG) Report Routine EEG Patient Name: Michelle Gomez Date of : 1985 ?? Age: 38 y.o. Gender: Female Recording Tech: Mel Fritz/ Kasandra Bardales Referring Physician: Delonte Marin MD Interpreting Physician: Gordon Claudio MD Date of Study: 04/27/2024 History: Patient is a left handed, 38 y.o. female here for panic attack. Patient reports her last episode was 04/20/24. She reports she was showering and felt intense panic and fear. Patient reports feeling nauseous. She reports it lasted about 10 seconds and she felt tired after. Patient reports having a headache that lasted the rest of the day. Tech Notes: Patient arrived at her scheduled appointment time for her routine EEG. All medications were reviewed with Patient at that time and are included in her electronic medical record. The recording was performed using standard 10-20 electrode placements. Video and EKG monitoring were utilized. Patient was sleep deprived. The recording was obtained on a digital system. Patient appeared alert and oriented during the test, good effort during HV. Patient was given an adequate opportunity for sleep. Patient Status: Normal Awake Drowsy Asleep EEG DESCRIPTION: 1. Background: The waking posterior background activity was a continuous rhythm of 20-30 microvolts and 9-10 Hertz which was symmetrical. Diffuse, symmetric beta frequency activity was present. The sleep recording included stages one and two. 2. Abnormalities: Slow Wave Activity No abnormal slow wave activity was noted Epileptiform Activity No epileptiform activity was noted. Seizures or episodes recorded: none. Other Abnormal Patterns None Non-epileptic events None 3. Activation: Hyperventilation was performed, and this produced no significant changes. ??Intermittent photic stimulation performed at 2~30 Hz produced no significant change. IMPRESSION: This EEG is within normal limits. No abnormal slowing or epileptiform activity is observed. Clinical comment: A normal routine EEG does not preclude a diagnosis of epilepsy. Gordon Claudio M.D. [facility] Accredited EEG Laboratory Board Certified in Neurology Board Certified in Clinical Neurophysiology [place] Board of Psychiatry and Neurology Delonte Marin MD NEUROLOGY ORDERABLES Final Result documented in this encounter Visit Diagnoses Diagnosis Panic attack- Primary Panic disorder without agoraphobia Anxiety Anxiety state, unspecified Seizure-like activity Other convulsions Panic attack Panic disorder without agoraphobia documented in this encounter Additional Health Concerns Assessment Noted Time PHQ-9 Depression Total Score: 20 024 2:47 PM CDT A Depression follow-up plan has been documented for the patient 05/03/2024 5:12 PM CDT documented as of this encounter Care Teams School Psychological Examiner Relationship Specialty [place] [address] [place] [address] [address] [place] [address] PCP - General Podiatry 08/23/15 documented as of this encounter
--- OUTSIDE RECORDS SUMMARY | 2024-11-30 10:12 | XMS_ITS | Encounter Summary ---
Author Organization [employer] [facility] Address [address] [place] [address] Care Team Providers Care Real Estate Loan Officer Name Role Phone Delonte Marin MD Primary Care Provider +1- [phone] Encounter Details Date Type Department Care Team (Latest Contact Info) Description 03/09/2024 Travel Social History Tobacco Use Types Packs/Day Years Used Date Smoking Tobacco: Never Passive Smoke Exposure: Never Smokeless Tobacco: Never Alcohol Use Standard Drinks/Week Comments No 0 (1 standard drink = 0.6 oz pur e alcohol) PHQ-2 Answer Date Recorded PHQ-2 Total Score 2 01/13/2024 Comments Unknown Sex and Gender Information Value [...] < 140/90 Blood Pressure 118/82(2024 10:05 AM IN STORE MARKETER) No Delonte Marin MD Use sunscreen daily Lifestyle No Divya Cr, RN Frequent Skin Checks Lifestyle No Divya Cr, RN documented as of this encounter Visit Diagnoses Not on filedocumented in this encounter Additional Health Concerns Assessment Noted Time PHQ-9 Depression Total Score: 0 10/07/20 19 10:06 AM IN STORE MARKETER documented as of this encounter Care Teams Real Estate Loan Officer Relationship Specialty Start Date End Date Delonte Marin MD [address] [facility] [address] [place] [address] PCP - General Podiatry 08/23/15 documented as of this encounter
--- OUTSIDE RECORDS SUMMARY | 2024-11-30 10:12 | XMS_ITS | Encounter Summary ---
Author Organization [employer] Address [address] [place] [address] Care Team Providers Care Munitions Factory Worker Name Role Phone Delonte Marin MD Primary Care Provider +1- [phone] Encounter Details Date Type Department Care Team (Latest Contact Info) Description 06/18/2024 5:20 PM CDT - 06/18/2024 11:59 PM CDT Hospital Encounter [facility] [address] [place] [id number] Sore throat; Viral illness Discharge Disposition: Home - Discharge to Home [...] of Discharge SUMAtriptan succinate (IMITREX) 100 MG tabletIndications: Migraine without aura and without status migrainosus, not intractable Take 1 tablet by mouth as needed for Migraine. MAX 2 per day. 9 tablet 5 05/14/2023 escitalopram (LEXAPRO) 10 MG tablet Take 1 (one) tablet by mouth daily. 90 tablet 3 01/13/2024 07/23/2024 documented as of this encounter Progress Notes * Svetlana Willoughby APRN - 06/18/2024 5:20 PM CDT Please advise Gomez,Michelle Dunlap that she does have COVID and it's likely that her kids do, too. Lots of rest, fluids. Review isolation procedures with her. OTC meds as needed. She'll feel tough for thenext week or so. documented in this encounter Plan of Treatment Not on file documented as of this encounter Goals Goal Patient Goal Type Associated Problems Recent Progress Patient-Stated? Author Blood Pressure < 140/90 Blood Pressure 118/82(2024 10:05 AM BELT SANDER) No Delonte Marin MD Use sunscreen daily Lifestyle No Divya Cr, RN Frequent Skin Checks Lifestyle No Divya Cr, RN documented as of this encounter Procedures Procedure Name Priority Date/Time Associated Diagnosis Comments SARS COV-2 WITH INFLUENZA A/B AND RSV, PCR Routine 06/18/2024 5:20 PM CDT Sore throat Viral illness documented in this encounter Results * (ABNORMAL) SARS CoV-2 with Influenza A/B and RSV, PCR (06/18/2024 5:20 PM CDT) SARS-CoV-2 PCR DETECTED(A) NDET 6:49 PM [facility] Influenza A RPCR NOT DETECTED NDET 06/18/2024 6:49 PM [facility] Influenza B RPCR NOT DETECTED NDET 06/18/2024 6:49 PM [facility] RSV NOT DETECTED NDET 06/18/2024 6:49 PM [facility] Nasopharyngeal Swab NASOPHARYNGEAL SWAB / Unknown 06/18/2024 5:20 PM CDT 06/18/2024 5:58 PM CDT Svetlana Willoughby APRN MICROBIOLOGY - GENERAL ORD ERABLES Final Result [facility] [address] [place], [place] [phone] [facility] [address] [place] [address] documented in this encounter Visit Diagnoses Diagnosis Sore throat Acute pharyngitis Viral illness Unspecified viral infection, in conditions classified elsewhere and of unspecified site documented in this encounter Additional Health Concerns Infection Onset Date Last Indicated Resolved Time COVID-19 06/18/2024 06/18/2024 07/10/2024 1:20 AM CDT Assessment Noted Time PHQ-9 Depression Total Score: 20 024 2:47 PM CDT A Depression follow-up plan has been documented for the patient 05/03/2024 5:12 PM CDT documented as of this encounter Care Teams Munitions Factory Worker Relationship Specialty Start Date End Date Delonte Marin MD [address] [facility] [address] [place] [address] PCP - General Podiatry 08/23/15 documented as of this encounter
--- OUTSIDE RECORDS SUMMARY | 2024-11-30 10:12 | XMS_ITS | Encounter Summary ---
Author Organization [employer] Address [address] [place] [address] Care Team Providers Care Patient Support Associate Name Role Phone Delonte Marin MD Primary Care Provider +1- [phone] Reason for Visit * Reason Comments Back Pain-New >28 days * MRI/CAT Scan (Routine) - Closed Specialty Diagnoses / Procedures Referred By Contac t Referred To Contact Radiology Diagnoses Chronic midline low back pain, unspecified whether sciatica present Spondylolisthesis of lumbosacral region Chronic midline low back pain without sciatica Procedures MRI Lumbar Spine wo Contrast Jana Muhammad DO [address] [address] Phone: tel: fax: Referral ID Status Reason Start Date Expiration Date Visits Re quested Visits Authorized [id number] Closed 06/07/2023 08/08/2023 1 1 Encounter Details Date Type Department Care Team (Late st Contact Info) Description 06/17/2023 11:15 AM CDT Ancillary Procedure [facility] [address] [id number] Jana Muhammad DO [address] [address] Kira Jones, RTR [address] [place] [address] Social History Tobacco Use Types Packs/Day [...] < 140/90 Blood Pressure 118/82(2024 10:05 AM WIND POWER PROJECT MANAGER) No Delonte Marin MD Use sunscreen daily Lifestyle No Divya Cr, RN Frequent Skin Checks Lifestyle No Divya Cr, RN documented as of this encounter Procedures Procedure Name Priority Date/Time Associated Diagnosis Comments MRI LUMBAR SPINE WO CONTRAST Routine 06/17/2023 11:41 AM CDT Chronic midline low back pain, unspecified whether sciatica present Spondylolisthesis of lumbosacral region Chronic midline low back pain without sciatica documented in this encounter Results * MRI Lumbar Spine wo Contrast (06/17/2023 11:41 AM CDT) Anatomical Region Laterality Modality T-spine, L-spine, Pelvis Magneti c Resonance 06/17/2023 11:4 1 AM CDT Narrative 06/17/2023 1:26 PM CDT [address] ??[address] DIAGNOSTIC IMAGING Name: MICHELLE GOMEZ ??Ordering Phys: JANA MUHAMMAD Date of : 1985 ?Gender: F ??Accession Number: [id number] EXAM DESCRIPTION: MRI LUMBAR SPINE WO CONTRAST REASON FOR STUDY: Low back pain for 2 years which has recently progressed. ??No known injury. TECHNIQUE: Multiplanar, multisequence images obtained of the lumbar spine without contrast. COMPARISON: X-ray of the lumbar spine on February 26, 2023 FINDINGS: SEGMENTATION: No transitional anatomy with 5 non rib bearing vertebral bodies. ??Lowest well developed disc space is L5-S1. ALIGNMENT: 4 mm anterolisthesis of L5 on S1. VERTEBRAE: Vertebral body height well-maintained. ??There is bilateral pars defect at L5. ??Normal appearing marrow. DISC HEIGHT: Mild disc space narrowing at L5-S1. ??Remainder of the disc levels are well preserved. HARDWARE: None in the spine. CORD/CAUDA: Normal in size and signal intensity. Conus at the appropriate level. INDIVIDUAL DISC LEVELS: L1-2: No disc protrusion. ??No central canal or neural foraminal narrowing. L2-3: No disc protrusion. ??No central canal or neural foraminal narrowing. L3-4: No disc protrusion. ??No central canal or neural foraminal narrowing. L4-5: No disc protrusion. ??No central canal or neural foraminal narrowing. L5-S1: Mild generalized bulge of the disc. ??No central canal or neural foraminal narrowing. SACRUM: Visualized upper sacrum intact. VISUALIZED UPPER ABDOMEN: No significant abnormality. OTHER: No other significant findings. IMPRESSION: 1. Grade 1 anterolisthesis of L5 on S1 with bilateral pars defect at L5. 2. No central canal or neural foraminal narrowing. THIS IS AN ELECTRONICALLY VERIFIED FINAL REPORT 06/17/2023 1:25 PM - Electronically signed by Kathy Fu M.D. Procedure Note Kathy Fu MD - 06/17/2023 [place] [address] DIAGNOSTIC IMAGING Name: MICHELLE GOMEZ Ordering Phys: JANA MUHAMMAD Date of : 1985 Gender: F Accession Number: [id number] EXAM DESCRIPTION: MRI LUMBAR SPINE WO CONTRAST REASON FOR STUDY: Low back pain for 2 years which has recently progressed. No known injury. TECHNIQUE: Multiplanar, multisequence images obtained of the lumbar spine without contrast. COMPARISON: X-ray of the lumbar spine on February 26, 2023 FINDINGS: SEGMENTATION: No transitional anatomy with 5 non rib bearing vertebral bodies. Lowest well developed disc space is L5-S1. ALIGNMENT: 4 mm anterolisthesis of L5 on S1. VERTEBRAE: Vertebral body height well-maintained. There is bilateral pars defect at L5. Normal appearing marrow. DISC HEIGHT: Mild disc space narrowing at L5-S1. Remainder of the disc levels are well preserved. HARDWARE: None in the spine. CORD/CAUDA: Normal in size and signal intensity. Conus at the appropriate level. INDIVIDUAL DISC LEVELS: L1-2: No disc protrusion. No central canal or neural foraminal narrowing. L2-3: No disc protrusion. No central canal or neural foraminal narrowing. L3-4: No disc protrusion. No central canal or neural foraminal narrowing. L4-5: No disc protrusion. No central canal or neural foraminal narrowing. L5-S1: Mild generalized bulge of the disc. No central canal or neural foraminal narrowing. SACRUM: Visualized upper sacrum intact. VISUALIZED UPPER ABDOMEN: No significant abnormality. OTHER: No other significant findings. IMPRESSION: 1. Grade 1 anterolisthesis of L5 on S1 with bilateral pars defect at L5. 2. No central canal or neural foraminal narrowing. THIS IS AN ELECTRONICALLY VERIFIED FINAL REPORT 06/17/2023 1:25 PM - Electronically signed by Kathy Fu M.D. Jana Muhammad DO IMG MRI ORDERABLES Final Resu lt documented in this encounter Visit Diagnoses Diagnosis Chronic midline low back pain, unspecified whether sciatica present Spondylolisthesis of lumbosacral region Acquired spondylolisthesis documented in this encounter Additional Health Concerns Assessment Noted Time PHQ-9 Depression Total Score: 0 10/07/20 19 10:06 AM WIND POWER PROJECT MANAGER documented as of this encounter Care Teams Patient Support Associate Relationship Specialty Start Date End Date Delonte Marin MD [address] [facility] [address] [place] [address] PCP - General Podiatry 08/23/15 documented as of this encounter
--- OUTSIDE RECORDS SUMMARY | 2024-11-30 10:12 | XMS_ITS | Encounter Summary ---
Author Organization [employer] Address [address] [place] [address] Care Team Providers Care University Administrative Assistant Name Role Phone Kathy Fenton MD Primary Care Provider +1- [phone] Reason for Visit * Reason Comments Sore Throat Was seen 06/18/2024, was positive for covid then, neg strep. Reports not feeling better, throat is so sore can't eat, had to drink. Encounter Details Date Type Department Care Team (Late st Contact Info) Description 06/20/2024 2:00 PM CDT Office Visit [facility] [address] [place] [address] [address] [place] [address] [place] [address] [place] [address] [address] [place] [address] Sore throat (Primary Dx); COVID-19 Social History Tobacco Use Types Packs/Day Years [...] Sign Reading Time Taken Comments Blood Pressure 110/78 06/20/2024 2:03 PM CDT Pulse 94 06/20/2024 2:03 PM CDT Temperature 36.7 ??C (98 ??F) 06/20/2024 2:03 PM CDT Respiratory Rate 16 06/20/2024 2:03 PM CDT Oxygen Saturation 98% 06/20/2024 2:03 PM CDT Inhaled Oxygen Concentration - - Weight 68.3 kg (150 lb 9.6 oz) 06/20/2024 2:03 P M CDT Height - - Body Mass Index 24.31 03/27/2023 9:15 AM CDT documented in this encounter Patient Instructions * Patient Instructions* Melania Cheng NP - 06/20/2024 2:00 PM CDT Rapid strep negative. For now treat conservatively- plenty of fluids, rest, avoid OTC multi symptomcold/flu preparations. Sore throat home remedy- one tablespoon or more honey, one tablespoon apple cider vinegar in a cup of very hot water. Stir and sip. May repeat as often as you wish. documented in this encounter Progress Notes * Melania Cheng NP - 06/20/2024 2:00 PM CDT [address] [facility] [address] Dept: [phone] Dept Loc: [phone] Loc Date: 06/20/2024 Name: Michelle Gomez : 1985 PCP: Kathy Fenton MD SUBJECTIVE: Michelle Gomez is a 38 y.o. female. Patient is here today for Chief Complaint Patient presents with Sore Throat Was seen 06/18/2024, was positive for covid then, neg strep. Reports not feeling better, throat is so sore can't eat, had to drink. Information obtained from: patient. Today's concerns: Michelle is here for evaluation of persistent sore throat. She was seen here two days ago and was foundto have a COVID-19 positive test and negative Strep. Her throat is still very sore and she noticed white patches on the left side of the back of her mouth. She has had fevers, headaches, body aches. Throat feel raw- can't eat, hard to drink, she noticed whit patches on the left side. Smoking or smoke exposure: Social History Tobacco Use Smoking Status Never Passive exposure: Never Smokeless Tobacco Never E-cigarette/Vaping E-cigarette/Vaping Use Never User Passive Exposure No Counseling Given No E-cigarette/Vaping Substances Nicotine No THC No CBD No Flavoring No E-cigarette/Vaping Devices Disposable No Pre-filled or Refillable Cartridge No Refillable Tank No Pre-filled Pod No Review of Systems Constitutional: Positive for activity change, appetite change, chills, fatigue and fever. HENT: Positive for sore throat. Eyes: Negative. Respiratory: Negative for cough (a little cough when throat feels dry). Cardiovascular: Negative. Gastrointestinal: Negative. Musculoskeletal: Positive for myalgias. Skin: Negative. Neurological: Positive for headaches. Patient's problem list, medications, allergies, past medical, surgical, social and family historieswere reviewed and updated as appropriate. OBJECTIVE: Vitals: 06/20/24 1403 BP: 110/78 Pulse: 94 Resp: 16 Temp: 36.7 ??C (98 ??F) TempSrc: Temporal SpO2: 98% Weight: 68.3 kg (150 lb 9.6 oz) 36.7 ??C (98 ??F) (Temporal) Pulse: 94 RespRate: 16 BP Readings from Last 3 Encounters: 06/20/24 110/78 06/18/24 102/70 04/20/24 128/80 Wt Readings from Last 3 Encounters: 06/20/24 68.3 kg (150 lb 9.6 oz) 06/18/24 68.5 kg (151 lb) 04/20/24 66.6 kg (146 lb 12.8 oz) SpO2 W Comments Most recent update: 06/20/2024 2:04 PM SpO2 98% Body mass index is 24.31 kg/m??. Physical Exam Vitals and nursing note reviewed. Constitutional: Appearance: She is well-developed. She is ill-appearing. HENT: Head: Normocephalic and atraumatic. Right Ear: Tympanic membrane normal. Left Ear: Tympanic membrane normal. Nose: Rhinorrhea present. Mouth/Throat: Mouth: Mucous membranes are moist. Oral lesions present. Pharynx: Posterior oropharyngeal erythema present. Tonsils: Tonsillar exudate (small areas of white left posterior tonsil area) present. 0 on the right. 1+ on the left. Eyes: Conjunctiva/sclera: Conjunctivae normal. Pupils: Pupils are equal, round, and reactive to light. Cardiovascular: Rate and Rhythm: Normal rate and regular rhythm. Heart sounds: Normal heart sounds. Pulmonary: Effort: Pulmonary effort is normal. Breath sounds: Normal breath sounds and air entry. Musculoskeletal: Cervical back: Full passive range of motion without pain and normal range of motion. No rigidity. Normal range of motion. Lymphadenopathy: Cervical: Cervical adenopathy present. Right cervical: Superficial cervical adenopathy present. Left cervical: Superficial cervical adenopathy present. Skin: General: Skin is warm and dry. Capillary Refill: Capillary refill takes less than 2 seconds. Findings: No rash. Neurological: General: No focal deficit present. Mental Status: She is alert. Results for orders placed or performed in visit on 06/20/24 AMB POCT Rapid Strep A Collection Time: 06/20/24 12:00 AM Result Value Ref Range Rapid Strep A Screen Negative Negative ASSESSMENT: 1. Sore throat 2. COVID-19 Orders Placed This Encounter Throat culture Standing Status: Future Standing Expiration Date: 07/20/2024 Order Specific Question: Release to patient Answer: Immediate [1] diphenhydrAMINE (BENADRYL) 12.5 MG/5ML elixir Sig: Gargle, swish and swallow 5 mL four times daily and at bedtime. May gargle/ swish and spit every two hours. Dispense: 1800 mL Refill: 0 Pharmacy to compound: maalox susp, diphenhydramine 12.5mg/5ml elixir and lidocaine viscous 2% in equal ratios, 1:1:1. Order Specific Question: Supervising Provider? Answer: KATHY FENTON [[id number]] PLAN: Rapid strep negative. For now treat conservatively- plenty of fluids, rest, avoid OTC multi symptomcold/flu preparations. Offered strep confirmation and/or throat culture. She requests a throat culture so specimen will besent to lab. Rest, fluids, recheck if worsening symptoms such as fever, productive cough, back or chest pain. Recheck if increased facial pain, purulent drainage and if symptoms fail to resolve in the next week. Encounter Date: 06/20/2024 Follow up if symptoms worsen or fail to improve, for worsening cough, fever, shortness of breath, rash, cough or difficulty breathing. Signed: Melania Cheng NP 06/20/2024 2:58 PM documented in this encounter Plan of Treatment Not on file documented as of this encounter Goals Goal Patient Goal Type Associated Problems Recent Progress Patient-Stated? Author Blood Pressure < 140/90 Blood Pressure 118/82(2024 10:05 AM EYE SURGEON) No Kathy Fenton MD Use sunscreen daily Lifestyle No Divya Cr RN Frequent Skin Checks Lifestyle No Divya Cr, RN documented as of this encounter Procedures Procedure Name Priority Date/Time Associated Diagnosis Comments AMB POCT RAPID STREP A Routine 06/20/2024 Sore throat documented in this encounter Results * (ABNORMAL) Throat culture (06/20/2024 2:27 PM CDT) Specimen Description THROAT 06/20/2024 3:37 PM [facility] Request[facility] THROAT 06/20/2024 3:[address] [facility] Culture Results STAPHYLOCOCCUS AUREUS OXACILLIN (METHICILLIN) SUSCEPTIBLE STAPHYLOCOCCI CAN BE CONSIDERED SUSCEPTIBLE TO BETA-LACTAM COMBINATION AGENTS, CARBAPENEMS, AND ALL ORAL AND PARENTERAL CEPHEMS INCLUDING BUT NOT LIMITED TO CEFAZOLIN.(P) 06/23/2024 7:[address] [facility] Throat STRUCTURE OF ANTERIOR PORTION OF NECK [...] Staphylococcus aureus Vancomycin IRISH SENSITIVITY 1: SUSCEPTIBLE Melania Cheng CONTROL CLERK AUDITING MICROBIOLOGY - GENERAL ORDERA BLES Final Result [facility] [address] [place], [place] [phone] [facility] [address] [place] [address] * AMB POCT Rapid Strep A (06/20/2024) [facility] Rapid Strep A Screen Negative Negative [facility] POCTS 06/20/2024 Melania Cheng CONTROL CLERK AUDITING POINT OF CARE TEST ORDERABLES Final Result [facility] POCTS documented in this encounter Visit Diagnoses Diagnosis Sore throat- Primary Acute pharyngitis COVID-19 documented in this encounter Additional Health Concerns Infection Onset Date Last Indicated Resolved Time COVID-19 06/18/2024 06/18/2024 07/10/2024 1:20 AM CDT Assessment Noted Time PHQ-9 Depression Total Score: 20 024 2:47 PM CDT A Depression follow-up plan has been documented for the patient 05/03/2024 5:12 PM CDT documented as of this encounter Care Teams University Administrative Assistant Relationship Specialty Start Date End Date Kathy Fenton MD [address] [facility] [address] [place] [address] PCP - General Podiatry 08/23/15 documented as of this encounter
--- OUTSIDE RECORDS SUMMARY | 2024-11-30 10:12 | XMS_ITS | Encounter Summary ---
Author Organization [employer] Address [address] [place] [address] Care Team Providers Care Metalworking Instructor Name Role Phone Delonte Marin MD Primary Care Provider +1- [phone] Encounter Details Date Type Department Care Team ([facility] st Contact Info) Description 01/10/2024 Orders Only [facility] Dermatology [address] [place] [address] Sailaja Bianchi LPN [address] [place] [address] Acne, unspecified acne type Social History Tobacco Use Types Packs/Day Years [...] < 140/90 Blood Pressure 118/82(2024 10:05 AM LOGISTICS TECHNICIAN) No Delonte Marin MD Use sunscreen daily Lifestyle No Divya Cr, RN Frequent Skin Checks Lifestyle No Divya Cr, RN documented as of this encounter Visit Diagnoses Diagnosis Acne, unspecified acne type documented in this encounter Additional Health Concerns Assessment Noted Time PHQ-9 Depression Total Score: 0 10/07/20 10:06 AM LOGISTICS TECHNICIAN documented as of this encounter Care Teams Metalworking Instructor Relationship Specialty Start Date End Date Delonte Marin MD [address] [facility] [address] [place] [address] PCP - General Podiatry 08/23/15 documented as of this encounter
--- OUTSIDE RECORDS SUMMARY | 2024-11-30 10:12 | XMS_ITS | Encounter Summary ---
Author Organization [employer] [facility] Address [address] [place] [address] Care Team Providers Care Dining Room Tables Set Up Attendant Name Role Phone Delonte Marin MD Primary Care Provider +1- [phone] Encounter Details Date Type Department Care Team (Latest Contact Info) Description 01/13/2024 Travel Social History Tobacco Use Types Packs/Day [...] < 140/90 Blood Pressure 118/82(2024 10:05 AM COT ASSEMBLER) No Delonte Marin MD Use sunscreen daily Lifestyle No Divya Cr, RN Frequent Skin Checks Lifestyle No Divya Cr, RN documented as of this encounter Visit Diagnoses Not on filedocumented in this encounter Additional Health Concerns Assessment Noted Time PHQ-9 Depression Total Score: 0 10/07/20 19 10:06 AM COT ASSEMBLER documented as of this encounter Care Teams Dining Room Tables Set Up Attendant Relationship Specialty Start Date End Date Delonte Marin MD [address] [facility] [address] [place] [address] PCP - General Podiatry 08/23/15 documented as of this encounter
--- OUTSIDE RECORDS SUMMARY | 2024-11-30 10:12 | XMS_ITS | Encounter Summary ---
Author Organization [employer] [facility] Address [address] [place], [place] [address] Care Team Providers Care Handyperson Name Role Phone Delonte Marin MD Primary Care Provider +1- [phone] Reason for Visit * Reason Comments Electroencephologram * Neurodiagnostic (Routine) - Authorization Not Needed Specialty Diagnoses / Procedures Referred By Tommie jara Referred To Contact Diagnoses Panic attack Seizure-like activity Procedures [place] [address] [place] [address] [address] [place] [address] Phone: tel: fax: Referral ID Status Reason Start Date Expiration Date Visits Requested Visits Authorized [id number] Authorization Not Needed 04/20/2024 10/22/2025 1 1 Encounter Details Date Type Department Care Team ([facility] st Contact Info) Description 04/27/2024 8:30 AM CDT Procedure visit [facility] [address] [place] [address] Delonte Marin MD [address] [place] [address] [address] [place] [address] Audrey Almendarez SLT [address] [place] [address] Panic attack Social History Tobacco Use Types Packs/Day Years [...] on file documented as of this encounter Procedure Notes * Gordon Claudio MD - 04/27/2024 8:30 AM CDTAssociated Order(s): EEG ROUTINE Images from the original note were not included. [facility] [address] [place] [address] ex [id number] Electroencephalogram (EEG) Report Routine EEG Patient Name: Michelle Gomez Date of : 1985 Age: 38 y.o. Gender: Female Recording Tech: Mel Fritz/ Kasandra Bardales T. Referring Physician: Delonte Marin MD Interpreting Physician: Gordon Claudio MD Date of Study: 04/27/2024 History: Patient is a left handed, 38 y.o. female here for panic attack. Patient reports her last episode was 04/20/24. She reports she was showering and felt intense panic and fear. Patient reports feeling nauseous. She reports it lasted about 10 seconds and she felt tiredafter. Patient reports having a headache that lasted [...] activity was a continuous rhythm of 20-30 microvoltsand 9-10 Hertz which was symmetrical. Diffuse, symmetric beta frequency activity was present. The sleep recording included stages one and two. 2. Abnormalities: Slow Wave Activity No abnormal slow wave activity was noted Epileptiform Activity No epileptiform activity was noted. Seizures or episodes recorded: none. Other Abnormal Patterns None Non-epileptic events None 3. Activation: Hyperventilation was performed, and this produced no significant changes. Intermittent photic stimulation performed at 2~30 Hz produced no significant change. IMPRESSION: This EEG is within normal limits. No abnormal slowing or epileptiform activity is observed. Clinical comment: A normal routine EEG does not preclude a diagnosis of epilepsy. Gordon Claudio M.D. [employer] Attendant of [facility]redited EEG [facility] Board Certified in Neurology Board Certified in Clinical Neurophysiology [place] [employer] and Neurology documented in this encounter Plan of Treatment Not on file documented as of this encounter Goals Goal Patient Goal Type Associated Problems Recent Progress Patient-Stated? Author Blood Pressure < 140/90 Blood Pressure 118/82(2024 10:05 AM DIRECTOR SURFACE TRANSPORTATION) No Delonte Marin MD Use sunscreen daily Lifestyle No Divya Cr RN Frequent Skin Checks Lifestyle No Divya Cr RN documented as of this encounter Procedures Procedure Name Priority Date/Time Associated Diagnosis Comments EEG AWAKE OR DROWSY ROUTINE Routine 04/27/2024 8:30 AM CDT Panic attack documented in this encounter Results * EEG Routine (04/27/2024 8:30 AM CDT) Narrative Gordon Claudio MD - 04/27/2024 8:30 AM CDT Gordon Claudio MD ? 05/13/2024 ??8:24 PM [facility] [address] [place] [address] ex [id number] Electroencephalogram (EEG) Report Routine EEG Patient Name: Michelle Gomez Date of : 1985 ?? Age: 38 y.o. Gender: Female Recording Tech: Mel Fritz/ Kasandra Bardales TKaren Referring Physician: Delonte Marin MD Interpreting Physician: [...] a diagnosis of epilepsy. Gordon Claudio M.D. [employer] Attendant of [facility]redited EEG [facility] Board Certified in Neurology Board Certified in Clinical Neurophysiology [place] [employer] and Neurology Delonte Marin MD NEUROLOGY ORDERABLES Final Result documented in this encounter Visit Diagnoses Diagnosis Panic attack Panic disorder without agoraphobia documented in this encounter Additional Health Concerns Assessment Noted Time PHQ-9 Depression Total Score: 20 024 2:47 PM CDT A Depression follow-up plan has been documented for the patient 05/03/2024 5:12 PM CDT documented as of this encounter Care Teams Handyperson Relationship Specialty Start Date End Date Delonte Marin MD [address] [facility] [address] [place] [address] PCP - General Podiatry 08/23/15 documented as of this encounter
--- OUTSIDE RECORDS SUMMARY | 2024-11-30 10:12 | XMS_ITS | Encounter Summary ---
Author Organization [employer] Address [address] [place] [address] Care Team Providers Care Senior Account Executive Name Role Phone Delonte Marin MD Primary Care Provider +1- [phone] Reason for Visit * Reason Comments Cosmetic Encounter Details Date Type Department Care Team ([facility] st Contact Info) Description 09/26/2023 9:00 AM USED BUILDING MATERIALS YARD WORKER Treatment [facility] Dermatology [address] [place] [address] Tiffany Mobley MA [address] [place] [address] Social History Tobacco Use Types [...] as of this encounter Progress Notes * Tiffany Mobley MA - 09/26/2023 9:00 AM CST Pt here for Lumecca IPL treatment to areas of redness/hyperpigmentation of the face. Procedure discussed, questions answered and consent signed. Skin type 2. Clear ultrasound gel applied to area. Settings 14mj., short pulse two passes, Patient tolerated well. Post instructions reviewed and patient verbalized understanding. RTC in 3-4 weeks or prn. $250 prepaid. Tashi HERNANDES Recommended pairing full face Lumecca with NanoLaserPeel at next visit. BUILDING MATERIALS YARD WORKER documented in this encounter Plan of Treatment Not on file documented as of this encounter Goals Goal Patient Goal Type Associated Problems Recent Progress Patient-Stated? Author Blood Pressure < 140/90 Blood Pressure 118/82(2024 10:05 AM USED BUILDING MATERIALS YARD WORKER) No Delonte Marin MD Use sunscreen daily Lifestyle No Divya Cr RN Frequent Skin Checks Lifestyle No Divya Cr RN documented as of this encounter Visit Diagnoses Not on filedocumented in this encounter Additional Health Concerns Assessment Noted Time PHQ-9 Depression Total Score: 0 10/07/20 19 10:06 AM USED BUILDING MATERIALS YARD WORKER documented as of this encounter Care Teams Senior Account Executive Relationship Specialty Start Date End Date Delonte Marin MD [address] [facility] [address] [place] [address] PCP - General Podiatry 08/23/15 documented as of this encounter
--- OUTSIDE RECORDS SUMMARY | 2024-11-30 10:12 | XMS_ITS | Encounter Summary ---
Author Organization [employer] Address [address] [place] [address] Care Team Providers Care Industrial Mechanic Name Role Phone Kathy Marin MD Primary Care Provider [phone]- [phone] Reason for Referral * Neurodiagnostic (Routine) - Authorization Not Needed Specialty Diagnoses / Procedures Referred By Contac t Referred To Contact Diagnoses Chronic bilateral low back pain with left-sided sciatica Abnormal MRI, lumbar spine Numbness and tingling of both upper extremities Positional headache History of bilateral carpal tunnel release Procedures EMG Kathy Farfan MD [address] [place] [address] Phone: tel: fax: Referral ID Status Reason Start Date Expiration Date Visits Requested Visits Authorized [id number] Authorization Not Needed 08/14/2023 02/14/2025 1 1 Reason for Visit * Reason Onset Date Comments advise and recommendations regarding back pain, sensory dis 08/05/2023 Encounter Details Date Type Department Care Team (Late st Contact Info) Description 08/05/2023 Telephone [facility] Neurology [address] [place] [phone] Martha Hill RN [address] [place] [address] advise and recommendations regarding back pain, sensory dis Social History Tobacco Use Types Packs/Day Years [...] encounter Miscellaneous Notes * Telephone Encounter - Martha Hill RN - 08/14/2023 2:02 PM CDT PC to pt, reviewed Dr. Dennison recommendations--Michelle VPU and agrees to this plan, but upon further investigation it was determined that pt has already done xray of lumbar spine with flex/ext viewsin February of 2023 and would like to hold off on repeating lumbar x-ray at this time. Orders placed for EMG and xray cervical spine. Maritza GRACIA * Telephone Encounter - Martha Hill RN - 08/14/2023 1:[address] Farfan reviewed and recommends the following-- -Lumbar and cervical spine x-rays with flex/ext views to further evaluate stability -Repeat EMG/NCS of RUE and BLE -schedule future follow up appt to be seen in office * Telephone Encounter - Martha Hill RN - 08/12/2023 1:46 PM CDT PC from pt with symptom update that she forgot to relay during PC last week. Pt reports that she does have episodes of left sided sciatic pain that occur multiple times during the day. Pt reports that she has noticed a slight uptic in headaches that seem to be positional in nature. No overt neck pain or neck stiffness. But she has had return of numbness and tingling to bilateral hands over the past couple of months. (Pt has history of bilateral carpal tunnel release.) I relayed to pt that this update will be noted on her chart and will further discuss with Dr. Farfan when he returns to clinic on Saturday. Pt VPU and agrees with plan. Maritza GRACIA * Telephone Encounter - Martha Hill RN - 08/05/2023 3:11 PM CDT PC returned to pt, she is asking for some advise regarding persistent issues with low back pain that is affecting activities of daily living. Pt reports no sensory disturbances, no focal motor deficits at this time. We reviewed her recent MRI Lumbar spine results that were done in May. I relayed to pt that I would be happy to review with Dr. Farfan and determine what his next recommendations would be for pt. I did let pt know that he is out of the office until next week, but if/when I speakwith him over the phone--I could then relay this information to him to ask if he could give any thoughts/recommendations via PC. Pt VPU and agrees to this plan and is aware I will call her back once I speak with Dr. Farfan. Maritza GRACIA * Telephone Encounter - Martha Hill RN - 08/05/2023 3:11 PM CDT ----- Message from YENI Ferrera sent at 08/05/2023 2:03 PM CDT ----- PT called and is having some back issues, she has some question she wanted to ask before she sets up a appt, please call back @ [phone] documented in this encounter Plan of Treatment Not on file documented as of this encounter Goals Goal Patient Goal Type Associated Problems Recent Progress Patient-Stated? Author Blood Pressure < 140/90 Blood Pressure 118/82(2024 10:05 AM JACQUARD LOOM CARPET WEAVER) No Kathy Marin MD Use sunscreen daily Lifestyle No Divya Cr RN Frequent Skin Checks Lifestyle No Divya Cr RN documented as of this encounter Results * XR Cervical Spine 3 Views or Less (09/11/2023 11:51 AM CDT) Anatomical Region Laterality Modality C-spine, T-spine, Neck Computed Radiography 09/11/2023 11:5 1 AM CDT Narrative 09/12/2023 9:04 AM CDT [address] ??[address] DIAGNOSTIC IMAGING Name: GOMEZ, MICHELLE K ??Ordering Phys: VINCENTKATHY MCHUGH Date of : 1985 ?Gender: F ??Accession Number: [id number] EXAM DESCRIPTION: XR CERVICAL SPINE 3 VIEWS OR LESS REASON FOR STUDY: Numbness and tingling bilateral upper extremity for several weeks, positional headaches TECHNIQUE: 2 lateral images of the cervical spine submitted COMPARISON: Prior study dated 11/30/2019 FINDINGS: Lateral imaging with the neck flexed and extended submitted. ?? There is no change in alignment of the cervical spine with flexion or extension. ??No obvious malalignment. IMPRESSION: No change in alignment of the cervical spine with flexion or extension. THIS IS AN ELECTRONICALLY VERIFIED FINAL REPORT 09/12/2023 9:01 AM - Electronically signed by Javier Chaudhary M.D. Procedure Note Javier Chaudhary MD - 09/12/[address] [address] DIAGNOSTIC IMAGING Name: DORITAMICHELLE Ordering Phys: VINCENTKAYLIETAKATHY Date of : 1985 Gender: F Accession Number: [id number] EXAM DESCRIPTION: XR CERVICAL SPINE 3 VIEWS OR LESS REASON FOR STUDY: Numbness and tingling bilateral upper extremity for several weeks, positional headaches TECHNIQUE: 2 lateral images of the cervical spine submitted COMPARISON: Prior study dated 11/30/2019 FINDINGS: Lateral imaging with the neck flexed and extended submitted. There is no change in alignment of the cervical spine with flexion or extension. No obvious malalignment. IMPRESSION: No change in alignment of the cervical spine with flexion or extension. THIS IS AN ELECTRONICALLY VERIFIED FINAL REPORT 09/12/2023 9:01 AM - Electronically signed by Javier Chaudhary M.D. us Kathy Farfan MD IMG DIAGNOSTIC IMAGING OR DERABLES Final Result * EMG (09/11/2023 10:47 AM CDT) us Kathy Farfan MD NEUROLOGY ORDERABLES Marta l Result documented in this encounter Visit Diagnoses Diagnosis Chronic bilateral low back pain with left-sided sciatica- Primary Chronic migraine without aura without status migrainosus, not intractable Chronic migraine without aura, without mention of intractable migraine without mention of status migrainosus Abnormal MRI, lumbar spine Other nonspecific (abnormal) findings on radiological and other examinations of body structure Numbness and tingling of both upper extremities Positional headache Headache History of bilateral carpal tunnel release Chronic migraine without aura without status migrainosus, not intractable Chronic migraine without aura, without mention of intractable migraine without mention of status migrainosus Abnormal MRI, lumbar spine Other nonspecific (abnormal) findings on radiological and other examinations of body structure Numbness and tingling of both upper extremities Positional headache Headache History of bilateral carpal tunnel release documented in this encounter Additional Health Concerns Assessment Noted Time PHQ-9 Depression Total Score: 0 10/07/20 19 10:06 AM JACQUARD LOOM CARPET WEAVER documented as of this encounter Care Teams Industrial Mechanic Relationship Specialty Start Date End Date Kathy Marin MD [address] [facility] [address] [place] [address] PCP - General Podiatry 08/23/15 documented as of this encounter
--- OUTSIDE RECORDS SUMMARY | 2024-11-30 10:12 | XMS_ITS | Encounter Summary ---
Author Organization [employer] Address [address] [place] [address] Care Team Providers Care Accounts Payable Bookkeeper Name Role Phone Delonte Marin MD Primary Care Provider +1- [phone] Reason for Visit * Reason Comments Follow-up Encounter Details Date Type Department Care Team ([facility] st Contact Info) Description 01/13/2024 11:10 AM PAINT PREPPER Office Visit [facility] Neurology [address] [place] [phone] Delonte Farfan MD [address] [place] [address] Chronic migraine without aura without status migrainosus, not intractable (Primary Dx) Social History Tobacco Use Types [...] Sign Reading Time Taken Comments Blood Pressure 114/88 01/13/2024 11:18 AM PAINT PREPPER Pulse 92 01/13/2024 11:18 AM PAINT PREPPER Temperature - - Respiratory Rate - - Oxygen Saturation 98% 01/13/2024 11:18 AM PAINT PREPPER Inhaled Oxygen Concentration - - Weight 68 kg (150 lb) 01/13/2024 11:18 AM PAINT PREPPER Height - - Body Mass Index 24.21 03/27/2023 9:15 AM CDT documented in this encounter Progress Notes * Delonte Farfan MD - 01/13/2024 11:10 AM CST Chief Complaint Patient presents with Follow-up Patients here for a follow up visit. Subjective: Patient ID: Michelle Gomez is a 38 y.o. female. HPI see below History: Past Medical History: Diagnosis Date Carpal tunnel syndrome Neck disc problems.Sees chiropractor and Celebrex Cervical spondylosis 12/21/2019 Migraines Saw Adolph. Uses Imitrex and nortriptyline. Less migraines since Mirena out. Past Surgical History: Procedure Laterality Date Carpal tunnel release Left 09/12/2015 Left hand carpal tunnel release./Gem Carpal tunnel release Right 10/24/2015 Right hand carpal tunnel release./Gem Foot surgery Left bunionectomy Left oophorectomy 01/21/2024 Salpingectomy Bilateral 01/21/2024 Family History Problem Relation Age of Onset Skin cancer Mother Celiac disease Mother Migraines Father Diabetes Paternal Grandmother Diabetes Paternal Grandfather Cancer Neg Hx Heart disease Neg Hx Social History Tobacco Use Smoking status: Never Passive exposure: Never Smokeless tobacco: Never Vaping Use Vaping Use: Never used Substance Use Topics Alcohol use: No Alcohol/week: 0.0 standard drinks of alcohol Drug use: No Allergies Allergen Reactions Augmentin [Amoxicillin-Pot Clavulanate] Nausea And Vomiting Current Outpatient Medications Medication Sig Dispense Refill SUMAtriptan succinate (IMITREX) 100 MG tablet Take 1 tablet by mouth as needed for Migraine. MAX 2 per day. 9 tablet 5 tazarotene (Tazorac) 0.1 % cream Apply nightly to affected areas on the hands. 60 g 2 benzonatate (TESSALON) 200 MG capsule Take 1 (one) capsule by mouth 3 (three) times daily as neededfor Cough. 60 capsule 0 escitalopram (LEXAPRO) 10 MG tablet Take 1 (one) tablet by mouth daily. 90 tablet 3 fluticasone NASAL (FLONASE) 50 MCG/ACT nasal spray 2 (two) sprays by Nasal route daily. to each nostril 16 g 1 loratadine (CLARITIN) 10 MG tablet Take 1 (one) tablet by mouth daily as needed for Allergies. 30 tablet 0 magnesium 200 MG TABS tablet Take 1 (one) tablet by mouth daily. nortriptyline (PAMELOR) 10 MG capsule Take 3 (three) capsules by mouth nightly. 270 capsule 3 No current facility-administered medications for this visit. Review of Systems Objective: BP 114/88 Pulse 92 Wt 68 kg (150 lb) SpO2 98% BMI 24.21 kg/m?? Physical Exam Pleasant affable conversant appropriate insightful excellent historian. Ambulates independently well-groomed of appearance. Focused exam limited today no substantial change Assessment & Plan Diagnosis: 1. Chronic migraine without aura without status migrainosus, not intractable Medications provided Orders Placed This Encounter Medications escitalopram (LEXAPRO) 10 MG tablet Sig: Take 1 (one) tablet by mouth daily. Dispense: 90 tablet Refill: 3 Additional Orders: No orders of the defined types were placed in this encounter. Michelle is back to see us today. Headaches doing pretty well. She was able to taper off the nortriptyline. Longer days better weather will help. Still gets quite a lot of chronic issues with anxiety feels flat less energy sometimes. Worries about stuff quite a bit. Sounds like chronic anxiety issues. She had been tried on Zoloft in the past and it really did not help her much. She had seen 1 psychiatrist in the past and did not really click with that psychiatrist. Did not appear to really have a good listening skills. Has not been seeing counselor anything. No suicidality. No homicidality. With anxiety thoughts racing difficulty sleeping at night. Getting off the nortriptyline probably was reas onable in that regard sometimes of seeing nortriptyline make her heart race. An SSRI might be considered something like Lexapro could potentially be useful. Even as tiny dose might help her out. Meanwhile optimize the exercise and regular schedule. And if she is willing to see a counselor about this that might be somebody that could help her more than necessarily prescribing medication. If they thought there was an indication they could check with psychiatrist and see if there is a better medicine than what we are using. Meanwhile yoga and a lot of nonpharmacologic measures some individuals find very effective for dealing with anxiety stress. We had an eloquent discussion a number of topics today. Greater than 50% of today's visit was devoted to counseling and education Interestingly she identified that tomatoes were one of her headache triggers. That is certainly something that is been noted in the past. Although not frequently. Planned surgery for a cyst by [employer] next week. They are going to resect her tubes as well at that point. That would simplify pharmacologic went forward. Delonte Farfan MD documented in this encounter Plan of Treatment Not on file documented as of this encounter Goals Goal Patient Goal Type Associated Problems Recent Progress Patient-Stated? Author Blood Pressure < 140/90 Blood Pressure 118/82(2024 10:05 AM PAINT PREPPER) No Delonte Marin MD Use sunscreen daily Lifestyle No Divya Cr, RN Frequent Skin Checks Lifestyle No Divya Cr, RN documented as of this encounter Visit Diagnoses Diagnosis Chronic migraine without aura without status migrainosus, not intractable- Primary Chronic migraine without aura, without mention of intractable migraine without mention of status migrainosus documented in this encounter Additional Health Concerns Assessment Noted Time PHQ-9 Depression Total Score: 0 10/07/20 19 10:06 AM PAINT PREPPER documented as of this encounter Care Teams Accounts Payable Bookkeeper Relationship Specialty Start Date End Date Delonte Marin MD [address] [facility] [address] [place] [address] PCP - General Podiatry 08/23/15 documented as of this encounter
--- OUTSIDE RECORDS SUMMARY | 2024-11-30 10:12 | XMS_ITS | Encounter Summary ---
Author Organization [employer] Address [address] [place] [address] Care Team Providers Care Pharmacist Helper Name Role Phone Kathy Marin MD Primary Care Provider +1- [phone] Reason for Visit * Reason Comments upper extremity numbness Headache Encounter Details Date Type Department Care Team ([facility] st Contact Info) Description 09/11/2023 11:50 AM CDT Clinical Support [facility] [address] [place] [phone] Kathy Adkins MD [address] [place] [address] [address] [place] [address] Antonia Painter, RTR [address] [place] [address] Chronic migraine without aura without status migrainosus, not intractable; Abnormal MRI, lumbar spine; Numbness and tingling of both upper extremities; Positional headache; History of bilateral carpal tunnel release Social History Tobacco Use Types Packs/Day Years [...] < 140/90 Blood Pressure 118/82(2024 10:05 AM SAFETY DEPOSIT BOXES CUSTODIAN) No Kathy Marin MD Use sunscreen daily Lifestyle No Divya Cr RN Frequent Skin Checks Lifestyle No Divya Cr RN documented as of this encounter Procedures Procedure Name Priority Date/Time Associated Diagnosis Comments XR CERVICAL SPINE 3 VIEWS OR LESS Routine 09/11/2023 11:51 AM CDT Chronic migraine without aura without status migrainosus, not intractable Abnormal MRI, lumbar spine Numbness and tingling of both upper extremities Positional headache History of bilateral carpal tunnel release documented in this encounter Results * XR Cervical Spine 3 Views or Less (09/11/2023 11:51 AM CDT) Anatomical Region Laterality Modality C-spine, T-spine, Neck Computed Radiography 09/11/2023 11:5 1 AM CDT Narrative 09/12/2023 9:04 AM CDT [address] ??[address] DIAGNOSTIC IMAGING Name: MICHELLE GOMEZ ??Ordering Phys: KATHY ADKINS Date of : 1985 ?Gender: F ??Accession Number: [id number] EXAM DESCRIPTION: XR CERVICAL SPINE 3 VIEWS [...] Procedure Note Javier Chaudhary MD - 09/12/[address] [address] DIAGNOSTIC IMAGING Name: MICHELLE GOMEZ Ordering Phys: KATHY ADKINS N Date of : 1985 Gender: F Accession Number: [id number] EXAM DESCRIPTION: XR CERVICAL SPINE 3 VIEWS [...] - Electronically signed by Javier Chaudhary M.D. Kathy Adkins MD IMG DIAGNOSTIC IMAGING OR DERABLES Final Result documented in this encounter Visit Diagnoses Diagnosis Chronic migraine [...] Total Score: 0 10/07/20 19 10:06 AM SAFETY DEPOSIT BOXES CUSTODIAN documented as of this encounter Care Teams Pharmacist Helper Relationship Specialty Start Date End Date Kathy Marin MD [address] [facility] [address] [place] [address] PCP - General Podiatry 08/23/15 documented as of this encounter
--- OUTSIDE RECORDS SUMMARY | 2024-11-30 10:12 | XMS_ITS | Encounter Summary ---
Author Organization [employer] Address [address] [place] [address] Care Team Providers Care Security Support Analyst Name Role Phone Delonte Marin MD Primary Care Provider +1- [phone] Reason for Visit * Reason Comments Congestion Body aches, exposed to RSV by [id number] ago, symptoms started a couple days ago Encounter Details Date Type Department Care Team (Late st Contact Info) Description 12/04/2023 9:20 AM SHAKE SPLITTER Office Visit [facility] Care [address] [place] [address] [address] [place] [address] Jaz Elizabeth PA [address] [place] [address] [address] [place] [address] Acute cough (Primary Dx); Acute non-recurrent maxillary sinusitis Social History Tobacco Use Types Packs/Day Years [...] Sign Reading Time Taken Comments Blood Pressure 116/78 12/04/2023 9:31 AM SHAKE SPLITTER Pulse 91 12/04/2023 9:31 AM SHAKE SPLITTER Temperature 36.6 ??C (97.9 ??F) 12/04/2023 9:31 AM CS T Respiratory Rate - - Oxygen Saturation 98% 12/04/2023 9:31 AM SHAKE SPLITTER Inhaled Oxygen Concentration - - Weight - - Height - - Body Mass Index - - documented in this encounter Patient Instructions * Patient Instructions* Jaz Elizabeth PA - 12/04/2023 9:20 AM SHAKE SPLITTER Take the antibiotic as directed until completed Continue using Flonase and start either Zyrtec, Brandi or Claritin and take these as directed Increase your fluid intake Take Tylenol 500 Mg and ibuprofen 600 Mg every 6 hours as needed for pain and/or fevers Follow-up with your provider as needed Return to the clinic for worsening symptoms E SPLITTER * Attachments The following attachments cannot be sent through Care Everywhere. * Sinusitis: Acute ([place]) * Cough ([place]) documented in this encounter Progress Notes * Jaz Elizabeth PA - 12/04/2023 9:20 AM CST [address] [facility] [address] Dept: [phone] Dept Loc: [phone] Loc Date: 12/04/2023 Name: Michelle Gomez : 1985 PCP: Delonte Marin MD Subjective: Patient ID and HPI: Michelle Gomez is a pleasant 38 y.o. female, who presents with a complaint of sinus pain and pressure with congestion. She is also complaining of body aches. Her symptoms started2 to 3 days ago. She has had a positive exposure to RSV from her . She did take Mucinex thismorning. She has been using Flonase for the last 3 days. She continues to have the congestion and sinus pressure. She states it is behind her right eye. Allergy Information as of 12/04/23 AMOXICILLIN-POT CLAVULANATE Noted Status Severity Type Reaction 12/24/19 0921 Janeen Dickson RN 12/24/19 Active Medium Side Effect Nausea And Vomiting Current Outpatient Medications on File Prior to Visit Medication Sig Dispense Refill fluticasone NASAL (FLONASE) 50 MCG/ACT nasal spray 2 (two) sprays by Nasal route daily. to each nostril 16 g 1 magnesium 200 MG TABS tablet Take 1 (one) tablet by mouth daily. SUMAtriptan succinate (IMITREX) 100 MG tablet Take 1 tablet by mouth as needed for Migraine. MAX 2 per day. 9 tablet 5 tazarotene (Tazorac) 0.1 % cream Apply nightly to affected areas on the hands. 60 g 2 loratadine (CLARITIN) 10 MG tablet Take 1 (one) tablet by mouth daily as needed for Allergies. 30 tablet 0 nortriptyline (PAMELOR) 10 MG capsule Take 3 (three) capsules by mouth nightly. 270 capsule 3 No current facility-administered medications on file prior to visit. Past Medical History: Diagnosis Date Carpal tunnel syndrome Neck disc problems.Sees chiropractor and Celebrex Cervical spondylosis 12/21/2019 Migraines Saw Adolph. Uses Imitrex and nortriptyline. Less migraines since Mirena out. Past Surgical History: Procedure Laterality Date Carpal tunnel release Left 09/12/2015 Left hand carpal tunnel release./Justin Carpal tunnel release Right 10/24/2015 Right hand carpal tunnel release./[facility] surgery Left bunionectomy Review of Systems Constitutional: Negative for chills, fever and malaise/fatigue. HENT: Positive for congestion and sinus pain. Negative for ear pain and sore throat. Respiratory: Negative for cough. Gastrointestinal: Negative for abdominal pain, diarrhea, nausea and vomiting. Musculoskeletal: Positive for myalgias. Neurological: Negative for headaches. Objective: Blood pressure 116/78, pulse 91, temperature 36.6 ??C (97.9 ??F), temperature source Temporal, [id number] %. Physical Exam Vitals and nursing note reviewed. Constitutional: General: She is not in acute distress. Appearance: Normal appearance. She is normal weight. She is not ill-appearing, toxic-appearing or diaphoretic. HENT: Head: Normocephalic and atraumatic. Comments: Maxillary sinus pressure with palpation Ears: Comments: Bilateral TMs displaced reflective light with bulging Nose: Congestion and rhinorrhea present. Comments: Purulent drainage with erythematous nasal mucosa Mouth/Throat: Mouth: Mucous membranes are moist. Comments: Posterior oropharynx cobblestone appearance Eyes: Conjunctiva/sclera: Conjunctivae normal. Cardiovascular: Rate and Rhythm: Normal rate and regular rhythm. Heart sounds: Normal heart sounds. Pulmonary: Effort: Pulmonary effort is normal. Breath sounds: Normal breath sounds. Musculoskeletal: General: Normal range of motion. Cervical back: Normal range of motion and neck supple. Tenderness present. Lymphadenopathy: Cervical: Cervical adenopathy present. Skin: General: Skin is warm and dry. Neurological: Mental Status: She is alert. Assessment/Orders: Diagnoses and all orders for this visit: Acute cough - POCT respiratory syncytial virus Acute non-recurrent maxillary sinusitis Other orders - Discontinue: doxycycline hyclate (VIBRAMYCIN) 100 MG capsule; Take 1 (one) capsule by mouth 2 (two) times daily for 7 days. - Discontinue: benzonatate (TESSALON) 200 MG capsule; Take 1 (one) capsule by mouth 3 (three) timesdaily as needed for Cough. - benzonatate (TESSALON) 200 MG capsule; Take 1 (one) capsule by mouth 3 (three) times daily as needed for Cough. - doxycycline hyclate (VIBRAMYCIN) 100 MG capsule; Take 1 (one) capsule by mouth 2 (two) times daily for 7 days. No results available. Plan: Patient was concerned that she had RSV, we tested her for this and this was negative. I am treatingher with doxycycline for her acute sinusitis and instructed her to not take her magnesium while taking the doxycycline. She was also encouraged to continue taking the Flonase and to start either Brandi, Zyrtec or Claritin. I did write for Tessalon to help with her cough. She was given home care instructions with instructions to return for worsening symptoms. She did question whether she could receive a steroid injection, I informed her that it was best to hold off with this and see if she did not have improvement with these medications prior to us giving her steroid as steroids do have side e ffects and we have not tested her for COVID and if she is positive for COVID it will eliminate her immune system. She agreed with the plan of care. Signed: SYLVIE Jacques disclaimer This dictation was partially electronically transcribed via [employer]. I endeavor to checkon the accuracy of the shell sorter, but at times nonsensical statements inadvertently make it through the proofreading process. Cosigned by Belné Gotti DO at 12/04/2023 3:41 PM SHAKE SPLITTER E SPLITTER E SPLITTER Associated attestation - Belén Gotti DO - 12/04/2023 3:41 PM SHAKE SPLITTER I have read the documentation and agree with the PAC Treatment plan. documented in this encounter Plan of Treatment Not on file documented as of this encounter Goals Goal Patient Goal Type Associated Problems Recent Progress Patient-Stated? Author Blood Pressure < 140/90 Blood Pressure 118/82(2024 10:05 AM SHAKE SPLITTER) No Delonte Marin MD Use sunscreen daily Lifestyle No Divya Cr, RN Frequent Skin Checks Lifestyle No Divya Cr, RN documented as of this encounter Procedures Procedure Name Priority Date/Time Associated Diagnosis Comments POCT RESPIRATORY SYNCYTIAL VIRUS Routine 12/04/2023 Acute cough documented in this encounter Results * POCT respiratory syncytial virus (12/04/2023) RSV Rapid Ag Negative Negative [facility] That{img} LAB 12/04/2023 us Jaz [facility] POINT OF CARE TEST RAIZA TUCKER Final Result [facility] That{img} LAB [address] [place], [place] [phone] documented in this encounter Visit Diagnoses Diagnosis Acute cough- Primary Acute non-recurrent maxillary sinusitis documented in this encounter Additional Health Concerns Assessment Noted Time PHQ-9 Depression Total Score: 0 10/07/20 19 10:06 AM SHAKE SPLITTER documented as of this encounter Care Teams Security Support Analyst Relationship Specialty Start Date End Date Delonte Marin MD [address] [facility] [address] [place] [address] PCP - General Podiatry 08/23/15 documented as of this encounter
--- OUTSIDE RECORDS SUMMARY | 2024-11-30 10:12 | XMS_ITS | Encounter Summary ---
Author Organization [employer] Address [address] [place] [address] Care Team Providers Care Toll Test Desk Worker Name Role Phone Delonte Marin MD Primary Care Provider +1- [phone] Reason for Visit * Reason Onset Date Comments Electroencephologram 04/23/2024 Encounter Details Date Type Department Care Team ([facility] st Contact Info) Description 04/23/2024 Telephone [facility] [address] [place] [id number] Hernán Bey RPSGT [address] [place] [address] Electroencephologram (/) Social History Tobacco Use Types Packs/Day Years [...] encounter Miscellaneous Notes * Telephone Encounter - Hernán Bey RPSGT - 04/23/2024 2:44 PM CDT Patient called with questions about EEGs. She has one ordered. We discussed the instructions in detail and she voiced understanding. Patient transferred to [facility] to schedule. documented in this encounter Plan of Treatment Not on file documented as of this encounter Goals Goal Patient Goal Type Associated Problems Recent Progress Patient-Stated? Author Blood Pressure < 140/90 Blood Pressure 118/82(2024 10:05 AM INSIDE METER TESTER) No Delonte Marin MD Use sunscreen daily [...] documented as of this encounter Care Teams Toll Test Desk Worker Relationship Specialty Start Date End Date Delonte Marin MD [address] [facility] [address] [place] [address] PCP - General Podiatry 08/23/15 documented as of this encounter
--- OUTSIDE RECORDS SUMMARY | 2024-11-30 10:12 | XMS_ITS | Encounter Summary ---
Author Organization [employer] Address [address] [place] [address] Care Team Providers Care Automation Software Engineer Name Role Phone Delonte Marin MD Primary Care Provider +1- [phone] Encounter Details Date Type Department Care Team (Latest Contact Info) Description 08/20/2023 Travel Social History Tobacco Use Types Packs/Day [...] < 140/90 Blood Pressure 118/82(2024 10:05 AM SHIP RIGGER APPRENTICE) No Delonte Marin MD Use sunscreen daily Lifestyle No Divya Cr, RN Frequent Skin Checks Lifestyle No Divya Cr, RN documented as of this encounter Visit Diagnoses Not on filedocumented in this encounter Additional Health Concerns Assessment Noted Time PHQ-9 Depression Total Score: 0 10/07/20 19 10:06 AM SHIP RIGGER APPRENTICE documented as of this encounter Care Teams Automation Software Engineer Relationship Specialty Start Date End Date Delonte Marin MD [address] [facility] [address] [place] [address] PCP - General Podiatry 08/23/15 documented as of this encounter
--- OUTSIDE RECORDS SUMMARY | 2024-11-30 10:12 | XMS_ITS | Encounter Summary ---
Author Organization [employer] Address [address] [place] [address] Care Team Providers Care Insurance Business Analyst Name Role Phone Delonte Marin MD Primary Care Provider +1- [phone] Encounter Details Date Type Department Care Team (Latest Contact Info) Description 09/11/2023 Travel Social History Tobacco Use Types Packs/Day [...] < 140/90 Blood Pressure 118/82(2024 10:05 AM PRINCIPAL CYBER ENGINEER) No Delonte Marin MD Use sunscreen daily Lifestyle No Divya Cr, RN Frequent Skin Checks Lifestyle No Divya Cr, RN documented as of this encounter Visit Diagnoses Not on filedocumented in this encounter Additional Health Concerns Assessment Noted Time PHQ-9 Depression Total Score: 0 10/07/20 19 10:06 AM PRINCIPAL CYBER ENGINEER documented as of this encounter Care Teams Insurance Business Analyst Relationship Specialty Start Date End Date Delonte Marin MD [address] [facility] [address] [place] [address] PCP - General Podiatry 08/23/15 documented as of this encounter
--- OUTSIDE RECORDS SUMMARY | 2024-11-30 10:12 | XMS_ITS | Encounter Summary ---
Author Organization [employer] Address [address] [place] [address] Care Team Providers Care Tunnel Elastic Operator Lockstitch Name Role Phone Delonte Marin MD Primary Care Provider +1- [phone] Reason for Visit * Neurodiagnostic (Routine) - Authorization Not Needed Specialty Diagnoses / Procedures Referred By Contac t Referred To Contact Diagnoses Chronic bilateral low back pain with left-sided sciatica Abnormal MRI, lumbar spine Numbness and tingling of both upper extremities Positional headache History of bilateral carpal tunnel release Procedures EMG Delonte Farfan MD [address] [place] [address] Phone: tel: fax: Referral ID Status Reason Start Date Expiration Date Visits Requested Visits Authorized [id number] Authorization Not Needed 08/14/2023 02/14/2025 1 1 Encounter Details Date Type Department Care Team (Late st Contact Info) Description 09/11/2023 10:40 AM CDT Procedure visit [facility] Neurology [address] [place] [id number] Delonte Farfan MD [address] [place] [address] Patricio Ware MD [address] [place] [address] Chronic bilateral low back pain with left-sided sciatica; Abnormal MRI, lumbar spine; Numbness and tingling [...] as of this encounter Progress Notes * Patricio Ware MD - 09/11/2023 10:40 AM CDT Images from the original note were not included. Full Name: Michelle Gomez Date of : 1985 Visit Date: 09/11/2023 11:20 Age: 38 Years 1 Months Old Examining Physician: Patricio Ware MD Referring Physician: Delonte Farfan MD Patient History/Exam: Presentation with concern for history of sensory changes in the upper and lower extremities. More recently left-sided sciatica. Exam-no focal atrophy. History of cervical spondylosis. Summary The motor conduction test was normal in all 6 of the tested nerves: R Median - APB, R Ulnar - ADM, R Peroneal - EDB, L Peroneal - EDB, R Tibial - AH, L Tibial - AH. The sensory conduction test was normal in all 5 of the tested nerves: R Median - Digit II (Antidromic), R Ulnar - Digit V (Antidromic), R Radial - Anatomical snuff box (Forearm), R Sural - Ankle (Calf), L Sural - Ankle (Calf). The F wave study was normal in all 1 of the tested nerves: R Peroneal - EDB. The needle EMG study was normal in all 11 tested muscles: R. Gluteus medius, L. Tibialis anterior, R. Tibialis anterior, L. Gastrocnemius, R. Gastrocnemius, L. Semitendinosus, R. Semitendinosus, L. Vastus medialis, R. Vastus medialis, L. Gluteus medius, L. Lumbar paraspinals (low). Interpretation: No electrodiagnostic findings for left-sided lumbar radiculopathy or sciatic neuropathy. No electrodiagnostic findings for right upper extremity peripheral entrapment neuropathy. No electrodiagnostic findings for large fiber length dependent polyneuropathy of the extremities. - - - - - - - - - - - - - - - - - Patricio Ware M.D. Board Certified in Neurology [place] [employer] and Neu[employer] Board Certified in Neurophysiology documented in this encounter Plan of Treatment Not on file documented as of this encounter Goals Goal Patient Goal Type Associated Problems Recent Progress Patient-Stated? Author Blood Pressure < 140/90 Blood Pressure 118/82(2024 10:05 AM EQUITY TRADER) No Delonte Marin MD Use sunscreen daily Lifestyle No Divya Cr RN Frequent Skin Checks Lifestyle No Divya Cr RN documented as of this encounter Procedures Procedure Name Priority Date/Time Associated Diagnosis Comments EMG Routine 09/11/2023 10:47 AM CDT Chronic bilateral low back pain with left-sided sciatica Abnormal MRI, lumbar spine Numbness and tingling of both upper extremities Positional headache History of bilateral carpal tunnel release documented in this encounter Results * EMG (09/11/2023 10:47 AM CDT) Delonte Farfan MD NEUROLOGY ORDERABLES Marta l Result documented in this encounter Visit Diagnoses Diagnosis Chronic bilateral low back pain with left-sided sciatica Abnormal MRI, lumbar spine Other nonspecific (abnormal) findings on radiological and other examinations of body structure Numbness and tingling of both upper extremities Positional headache Headache History of bilateral carpal tunnel release documented in this encounter Additional Health Concerns Assessment Noted Time PHQ-9 Depression Total Score: 0 10/07/20 19 10:06 AM EQUITY TRADER documented as of this encounter Care Teams Tunnel Elastic Operator Lockstitch Relationship Specialty Start Date End Date Delonte Marin MD [address] [facility] [address] [place] [address] PCP - General Podiatry 08/23/15 documented as of this encounter
--- OUTSIDE RECORDS SUMMARY | 2024-11-30 10:12 | XMS_ITS | Encounter Summary ---
Author Organization [employer] Address [address] [place] [address] Care Team Providers Care Industrial Analyst Name Role Phone Delonte Marin MD Primary Care Provider +1- [phone] Reason for Visit * Reason Comments Follow-up Encounter Details Date Type Department Care Team ([facility] st Contact Info) Description 03/09/2024 9:45 AM CDT Office Visit [facility] Dermatology [address] [place] [phone] Juany Hurst MD [address] [place] [address] Verruca plana (Primary Dx); Disturbance of skin sensation; Nail brittleness; Dilated pore of Ananda of nose Social History Tobacco Use Types Packs/Day Years [...] Progress Notes * Juany Hurst MD - 03/09/2024 9:45 AM CDT CHIEF COMPLAINT: Follow up. HISTORY OF PRESENT ILLNESS: Michelle Gomez is a very pleasant 38 y.o. female presenting to clinic for follow up of warts. The patient was last seen in Dermatology 06/26/2023. She's been using Tazorac to adequate effect but has some subtle flat warts she would like to have etreated with liquid nitrogen. Wonders about treatment for brittle nails. Wonders about treatment for an enlarged pore on her nose. REVIEW OF SYSTEMS: Negative except as noted in HPI. PROBLEM LIST: Patient Active Problem List Diagnosis Seborrheic keratoses Neck pain Cervicocranial syndrome of cervical region Cervical spondylosis Visual changes Ophthalmic migraine Chronic fatigue OCD (obsessive compulsive disorder) Anxiety Lumbar back pain Sore throat MEDICATIONS: benzonatate (TESSALON) 200 MG capsule, 0 escitalopram (LEXAPRO) 10 MG tablet, 0 fluticasone NASAL (FLONASE) 50 MCG/ACT nasal spray, 0 loratadine (CLARITIN) 10 MG tablet, 0 magnesium 200 MG TABS tablet, 0 nortriptyline (PAMELOR) 10 MG capsule, 0 SUMAtriptan succinate (IMITREX) 100 MG tablet, 0 tazarotene (Tazorac) 0.1 % cream, 0 ALLERGIES: Allergies Allergen Reactions Augmentin [Amoxicillin-Pot Clavulanate] Nausea And Vomiting PHYSICAL EXAMINATION: Constitutional: This is a A well-developed, well-nourished female in no acute distress. The patientis alert and oriented and able to ambulate without difficulty Psych: Patient is Pleasant. Eyes: Eyelids and conjunctivae are without rash or lesion. ENT: The lips, tongue and gingiva are normal Integumentary: The patient is Florence skin type II. Skin examination included the following: Scalp Head Neck Chest Right upper extremity Left upper extremity Pertinent findings include: Numerous subtle roque flat topped papules to the dorsal hands. Nails are slightly brittle. Enlarged pore to nose. RESULTS REVIEW: N/A IMPRESSION & PLAN: 1. Verruca plana Continue tazarotene topical 18 flat warts treated with liquid nitrogen today Patient tolerated well. 2. Brittle nails No obvious pathology on exam Suggest biotin supplementation 3. Enlarged pore Reassured. No meaningfully effective treatments available for this currently. DISPOSITION: Follow up as needed. Juany Hurst MD Department of Dermatology [facility] documented in this encounter Plan of Treatment Not on file documented as of this encounter Goals Goal Patient Goal Type Associated Problems Recent Progress Patient-Stated? Author Blood Pressure < 140/90 Blood Pressure 118/82(2024 10:05 AM JAVA J2EE LEAD) No Delonte Marin MD Use sunscreen daily Lifestyle No Divya Cr, RN Frequent Skin Checks Lifestyle No Divya Cr, RN documented as of this encounter Visit Diagnoses Diagnosis Verruca plana- Primary Other specified viral warts Disturbance of skin sensation Nail brittleness Other specified disease of nail Dilated pore of Ananda of nose documented in this encounter Additional Health Concerns Assessment Noted Time PHQ-9 Depression Total Score: 0 10/07/20 19 10:06 AM JAVA J2EE LEAD documented as of this encounter Care Teams Industrial Analyst Relationship Specialty Start Date End Date Delonte Marin MD [address] [facility] [address] [place] [address] PCP - General Podiatry 08/23/15 documented as of this encounter
--- OUTSIDE RECORDS SUMMARY | 2024-11-30 10:12 | XMS_ITS | Encounter Summary ---
Author Organization [employer] Address [address] [place] [address] Care Team Providers Care Circular Saw Operator Name Role Phone Delonte Marin MD Primary Care Provider +1- [phone] Encounter Details Date Type Department Care Team (Latest Contact Info) Description 09/26/2023 Travel Social History Tobacco Use Types Packs/Day [...] < 140/90 Blood Pressure 118/82(2024 10:05 AM OILER AND GREASER) No Delonte Marin MD Use sunscreen daily Lifestyle No Divya Cr, RN Frequent Skin Checks Lifestyle No Divya Cr, RN documented as of this encounter Visit Diagnoses Not on filedocumented in this encounter Additional Health Concerns Assessment Noted Time PHQ-9 Depression Total Score: 0 10/07/20 19 10:06 AM OILER AND GREASER documented as of this encounter Care Teams Circular Saw Operator Relationship Specialty Start Date End Date Delonte Marin MD [address] [facility] [address] [place] [address] PCP - General Podiatry 08/23/15 documented as of this encounter
--- OUTSIDE RECORDS SUMMARY | 2024-11-30 10:12 | XMS_ITS | Encounter Summary ---
Author Organization [employer] Address [address] [place] [id number] Care Team Providers Care Product Support Technician Name Role Phone Delonte Marin MD Primary Care Provider [phone] Reason for Visit * Reason Onset Date Comments other 06/24/2023 Encounter Details Date Type Department Care Team (Late st Contact Info) Description 06/24/2023 Telephone [facility] [address] [place] [address] Rose Marie Doran RMA [address] [place] [address] other Social History Tobacco Use Types Packs/Day Years [...] encounter Miscellaneous Notes * Telephone Encounter - Rose Marie Doran RMA - 06/24/2023 9:35 AM CDT Call returned to Michelle. Michelle states she had her MRI on Saturday and has not heard anything yet. * Telephone Encounter - Rose Marie Doran RMA - 06/24/2023 9:26 AM CDT ----- Message from Jaz Apodaca sent at 06/21/2023 2:17 PM CDT ----- Provider: Jb Patient call back number: Preferred Please call patient back when you can. Thank you documented in this encounter Plan of Treatment Not on file documented as of this encounter Goals Goal Patient Goal Type Associated Problems Recent Progress Patient-Stated? Author Blood Pressure < 140/90 Blood Pressure 118/82(2024 10:05 AM ETHANOL MAINTENANCE MECHANIC) No Delonte Marin MD Use sunscreen daily Lifestyle No Divya Cr, RN Frequent Skin Checks Lifestyle No Divya Cr, RN documented as of this encounter Visit Diagnoses Not on filedocumented in this encounter Additional Health Concerns Assessment Noted Time PHQ-9 Depression Total Score: 0 10/07/20 19 10:06 AM ETHANOL MAINTENANCE MECHANIC documented as of this encounter Care Teams Product Support Technician Relationship Specialty Start Date End Date Delonte Marin MD [address] [facility] [address] [place] [address] PCP - General Podiatry 08/23/15 documented as of this encounter
--- OUTSIDE RECORDS SUMMARY | 2024-11-30 10:12 | XMS_ITS | Encounter Summary ---
Author Organization [employer] Address [address] [place], [place] [id number] Care Team Providers Care Milled Lumber Grader Name Role Phone Delonte Marin MD Primary Care Provider [phone]- [phone] Reason for Visit * Reason Onset Date Comments EEG result 05/06/2024 Encounter Details Date Type Department Care Team ([facility] st Contact Info) Description 05/06/[address] [place] [address] Christine Henderson LPN [address] [facility] [address] [place] [address] EEG result Social History Tobacco Use Types Packs/Day Years [...] encounter Miscellaneous Notes * Telephone Encounter - Christine Henderson LPN - 05/06/2024 5:05 PM CDT Call returned, VM left for patient regarding impression not finished. * Telephone Encounter - Christine Henderson LPN - 05/06/2024 5:03 PM CDT ----- Message from Smiley Royal sent at 05/06/2024 12:21 PM CDT ----- Provider: REESE Marin: Results Who Called? Michelle Is the patient active on MyChart?: No Patient call back number: (home) Michelle called states she would like a call back from Eli with the results from test she had done at [facility]. Michelle can be reached at [phone] documented in this encounter Plan of Treatment Not on file documented as of this encounter Goals Goal Patient Goal Type Associated Problems Recent Progress Patient-Stated? 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 [address] [place] [address] PCP - General Podiatry 08/23/15 documented as of this encounter
--- OUTSIDE RECORDS SUMMARY | 2024-11-30 10:12 | XMS_ITS | Encounter Summary ---
Author Organization [employer] Address [address] [place] [address] Care Team Providers Care Project Landscape Architect Name Role Phone Delonte Marin MD Primary Care Provider [phone]- [phone] Roshni Pop ELECTRONIC INSTALLER Unavailable [phone] Reason for Visit * Reason Comments Sore Throat Sore throat, fever o f 100, just got home from traveling, wants a strep test Encounter Details Date Type Department Care Team (Late st Contact Info) Description 06/18/2024 5:00 PM CDT Office Visit [facility] Care [address] [place] [address] [address] [place] [address] Svetlana Willoughby, ELECTRONIC INSTALLER [address] [place] [address] [address] [place] [address] Viral illness (Primary Dx); Sore throat Social History Tobacco Use Types Packs/Day Years Used Date Smoking Tobacco: Never Passive Smoke Exposure: Never Smokeless Tobacco: Never Tobacco Cessation:Counseling Given: No Alcohol Use Standard Drinks/Week Comments No 0 [...] Sign Reading Time Taken Comments Blood Pressure 102/70 06/18/2024 5:13 PM CDT Pulse 89 06/18/2024 5:13 PM CDT Temperature 38 ??C (100.4 ??F) 06/18/2024 5:13 PM CDT Respiratory Rate - - Oxygen Saturation 99% 06/18/2024 5:13 PM CDT Inhaled Oxygen Concentration - - Weight 68.5 kg (151 lb) 06/18/2024 5:13 PM CDT Height - - Body Mass Index 24.37 03/27/2023 9:15 AM CDT documented in this encounter Patient Instructions * Patient Instructions* Svetlana Willoughby APRN - 06/18/2024 5:00 PM CDT Images from the original note were not included. A Healthy Lifestyle: Care Instructions A healthy lifestyle can help you feel good, have more energy, and stay at a weight that's healthy for you. You can share a healthy lifestyle with your friends and family. And you can do it on your own. Eat meals with your friends or family. You could try cooking together. Plan activities with other people. Go for a walk with a friend, try a free online fitness class, orjoin a sports league. Eat a variety of healthy foods. These include fruits, vegetables, whole grains, low-fat dairy, and lean protein. Choose healthy portions of food. You can use the Nutrition Facts label on food packages as a guide. Eat more fruits and vegetables. You could add vegetables to sandwiches or add fruit to cereal. Drink water when you are thirsty. Limit soda, juice, and sports drinks. Try to exercise most days. Aim for at least 2?? hours of exercise each week. Keep moving. Work in the garden or take your dog on a walk. Use the stairs instead of the elevator. If you use tobacco or nicotine, try to quit. Ask your doctor about programs and medicines to help you quit. Limit alcohol. Men should have no more than 2 drinks a day. Women should have no more than 1. For some people, no alcohol is the best choice. Follow-up care is a galvez part of your treatment and safety. Be sure to make and go to all appointments, and call your doctor if you are having problems. It's also a good idea to know your test resultsand keep a list of the medicines you take. Where can you learn more? Scan the QR code or Go to the [employer] option found under the Resources tab in [employer]™ Audio https://chart.[employer]/Kula Causeshart. If you do not have access to [employer]™ Audio, you can visit https://[employer]org/patient-care and select Health Library from the menu on the left. Enter U807 in the search box to learn more about A Healthy Lifestyle: Care Instructions. Not on [employer]™ Audio? Go to [email or web address].[employer]/Apollidon and click the Sign Up Now link to request an activation code. Current as of: June 23, 2023 Content Version: 14.1 ?? [employer]. Care instructions adapted under license by your healthcare professional. This care instruction is for use with your licensed healthcare professional. If you have questions about a medical condition or this instruction, always ask your healthcare professional. [employer] disclaims any warranty or liability for your use of this information. * Attachments The following attachments cannot be sent through Care Everywhere. * Viral Infections (Djiboutian) * Fever (Djiboutian) * Sore Throat (Djiboutian) documented in this encounter Progress Notes * Svetlana Willoughby APRN - 06/18/2024 5:00 PM CDT Reason for Visit: Chief Complaint Patient presents with ??? Sore Throat Sore throat, fever of 100, just got home from traveling, wants a strep test Subjective Patient ID: Michelle Has a sore throat, fever over 100 degrees, is requesting strep test. Recently flew to and from [place] for vacation. Also has several children in her household that have been sick with coughs, ear infection. Strep test is actually negative. Assessment is essentially negative except she does have a fever at this time. I have a strong suspicion of COVID. Patient also wants to be tested for influenza a and B. Told that that is been pretty unusual to see that recently but were happy to test her forthis so we will. Because is a viral illness given handouts on ways to help yourself feel better symptomatically. Unfortunately this can take 7 to 10 days to run its course. Will call test results to patient tomorrow. History provided by: Patient grubber used: No Sore Throat This is a new problem. The current episode started in the past 7 days. The problem has been unchanged. The maximum temperature recorded prior to her arrival was 100.4 - 100.9 F. Associated symptoms include congestion and coughing. Pertinent negatives include no diarrhea, ear discharge, ear pain, beata rse voice, neck pain, shortness of breath, swollen glands, trouble swallowing or vomiting. Review of Systems Constitutional: Positive for fatigue and fever. HENT: Positive for congestion and sore throat. Negative for ear discharge, ear pain, hoarse voice, postnasal drip, rhinorrhea, sinus pressure, sinus pain, trouble swallowing and voice change. Eyes: Negative for discharge and redness. Respiratory: Positive for cough. Negative for shortness of breath and wheezing. Cardiovascular: Negative for chest pain. Gastrointestinal: Negative for diarrhea, nausea and vomiting. Musculoskeletal: Positive for myalgias. Negative for neck pain and neck stiffness. Skin: Negative for color change, pallor and rash. Neurological: Negative for dizziness, tremors, weakness and light-headedness. Hematological: Negative for adenopathy. Objective BP 102/70 Pulse 89 Temp 38 ??C (100.4 ??F) (Temporal) Wt 68.5 kg (151 lb) SpO2 99% BMI 24.37 kg/m?? Physical Exam Vitals reviewed. Constitutional: General: She is not in acute distress. Appearance: She is well-developed and normal weight. She is not ill-appearing, toxic-appearing or diaphoretic. HENT: Right Ear: Tympanic membrane normal. Left Ear: Tympanic membrane normal. Nose: Congestion present. Mouth/Throat: Mouth: Mucous membranes are moist. Pharynx: Oropharynx is clear. No pharyngeal swelling, oropharyngeal exudate, posterior oropharyngeal erythema or uvula swelling. Eyes: Conjunctiva/sclera: Conjunctivae normal. Cardiovascular: Rate and Rhythm: Normal rate and regular rhythm. Heart sounds: Normal heart sounds. Pulmonary: Effort: Pulmonary effort is normal. Breath sounds: Normal breath sounds. Abdominal: General: Bowel sounds are normal. Palpations: Abdomen is soft. Musculoskeletal: Cervical back: Normal range of motion. Lymphadenopathy: Cervical: No cervical adenopathy. Skin: General: Skin is warm and dry. Neurological: General: No focal deficit present. Mental Status: She is alert and oriented to person, place, and time. Psychiatric: Mood and Affect: Mood normal. Behavior: Behavior normal. Assessment & Plan Diagnosis: 1. Viral illness 2. Sore throat Medications provided No orders of the defined types were placed in this encounter. Additional Orders: Orders Placed This Encounter Procedures ??? SARS CoV-2 with Influenza A/B and RSV, PCR ??? AMB POCT Rapid Strep A Encounter Provider Svetlana Willoughby APRN Disclaimer: Note: To increase efficiency, your provider prepared this document using voice recognition technology. In that case, if a word or phrase is confusing, or does not make sense, this is likely due to a recognition error within the program which was not discovered during the provider's review. If you believe an error has occurred, please notify your provider's office at your earliest convenience, so we can correct any mistakes. A template was used to create this document. It was edited to reflect the patients current complaints and physical condition as appropriate documented in this encounter Plan of Treatment Not on file documented as of this encounter Goals Goal Patient Goal Type Associated Problems Recent Progress Patient-Stated? Author Blood Pressure < 140/90 Blood Pressure 118/82(2024 10:05 AM KIDS ACTIVITIES COACH) No Delonte Marin MD Use sunscreen daily Lifestyle No Divya Cr, SAMIA Frequent Skin Checks Lifestyle No Divya Cr, RN documented as of this encounter Procedures Procedure Name Priority Date/Time Associated Diagnosis Comments AMB POCT RAPID STREP A Routine 06/18/2024 Sore throat documented in this encounter Results * (ABNORMAL) SARS CoV-2 with Influenza A/B and RSV, PCR (06/18/2024 5:20 PM CDT) SARS-CoV-2 PCR DETECTED(A) NDET 6:[address] [facility] Influenza A RPCR NOT DETECTED NDET 06/18/2024 6:[address] [facility] Influenza B RPCR NOT DETECTED NDET 06/18/2024 6:[address] [facility] RSV NOT DETECTED NDET 06/18/2024 6:49 PM CDT [facility] Nasopharyngeal Swab NASOPHARYNGEAL SWAB / Unknown 06/18/2024 5:20 PM CDT 06/18/2024 5:58 PM CDT us Svetlana Willoughby ELECTRONIC INSTALLER MICROBIOLOGY - GENERAL ORD ERABLES Final Result [facility] [address] [place], [place] [phone] [facility] [address] [place] [address] * AMB POCT Rapid Strep A (06/18/2024) Rapid Strep A Screen Negative Negative [facility] POCTS 06/18/2024 us Svetlana Willoughby ELECTRONIC INSTALLER POINT OF CARE TEST ORDERAB LES Final Result [facility] POCTS documented in this encounter Visit Diagnoses Diagnosis Viral illness- Primary Unspecified viral infection, in conditions classified elsewhere and of unspecified site Sore throat Acute pharyngitis documented in this encounter Additional Health Concerns Infection Onset Date Last Indicated Resolved Time COVID-19 06/18/2024 06/18/2024 07/10/2024 1:20 AM CDT Assessment Noted Time PHQ-9 Depression Total Score: 20 024 2:47 PM CDT A Depression follow-up plan has been documented for the patient 05/03/2024 5:12 PM CDT documented as of this encounter Care Teams Project Landscape Architect Relationship Specialty [place] [address] [place] [address] [address] [place] [address] PCP - General Podiatry 08/23/15 Roshni Pop APRN [address] [address] [place], [place] [address] Nurse Practitioner Behavioral Health 07/23/24 documented as of this encounter
--- OUTSIDE RECORDS SUMMARY | 2024-11-30 10:12 | XMS_ITS | Encounter Summary ---
Author Organization [facility] Address [address] [place] [address] Care Team Providers Care Forestry Biology Specialist Name Role Phone Delonte Marin MD Primary Care Provider +1- [phone] Reason for Visit * Reason Comments New Patient * Referral (Routine) - Closed Specialty Diagnoses / Procedures Referred By Tommie t Referred To Contact Pain Medicine Diagnoses Chronic midline low back pain, unspecified whether sciatica present Spondylolisthesis of lumbosacral region Chronic midline low back pain without sciatica Elías Muhammad DO [address] [place] [address] Phone: tel: fax: Tim Santana MD [address] [place] [address] Phone: tel: fax: Referral ID Status Reason Start Date Expiration Date V isits Requested Visits Authorized [id number] Closed Specialty Services Required 05/28/2023 11/28/2024 1 1 Encounter Details Date Type Department Care Team (Late st Contact Info) Description 08/20/2023 9:40 AM CDT Office Visit [facility] [address] [place] [phone] Elías Muhammad DO [address] [place] [address] Tim Santana MD [address] [place] [address] Chronic left-sided low back pain without sciatica (Primary Dx); Sacroiliac pain; Bulge of lumbar disc without myelopathy; Lumbosacral spondylosis without myelopathy Social History Tobacco Use Types Packs/Day Years Used Date Smoking Tobacco: Never Smokeless Tobacco: Never Tobacco Cessation:Counseling Given: Not Answered Alcohol Use Standard Drinks/Week Comments No 0 [...] Sign Reading Time Taken Comments Blood Pressure 132/80 08/20/2023 9:51 AM CDT Pulse 74 08/20/2023 9:51 AM CDT Temperature 36.7 ??C (98 ??F) 08/20/2023 9:51 AM CDT Respiratory Rate - - Oxygen Saturation 100% 08/20/2023 9:51 AM CDT Inhaled Oxygen Concentration - - Weight - - Height - - Body Mass Index - - documented in this encounter Progress Notes * Tim Santana MD - 08/20/2023 9:40 AM CDT Subjective: Chief complaint: back pain Michelle Gomez is a 38 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 She is accompanied by her son. The patient first noted symptoms 2 year(s) ago and it occurred gradual. It is felt mostly felt in the lower left back radiating to the upper thigh. The patient denies numbness and tingling of the lower extremities. The patient denies a previous history of spinal surgery or injections. The pain level today is reported to be 5/10.The pain occurs Continuously , temporal association is Morning , and overall the pain intensity, since it began, has been Worse. The pain is described by the patient with the following characteristics: Aching, Shooting and Throbbing. The pain interferes with the patient's function and quality of life in the following manner: nothing. The pain is made worse by Sitting, Lying Down, Bending Forward, Arching Backward and Using Bathroom. The pain is made better by Walking and Movement. Patient denies problems with sleeping secondary to the pain. Patient denies problems with coping, anxiety or depression associated with the pain. Patient denies weakness associated with the pain. Patient denies bowel/bladder incontinence. Saddle anesthesia is denied. The patient is using the following medications as part of the treatment regimen: none Treatment efforts have included Physical Therapy, without relief. Outside reports reviewed: office notes and radiology reports. Patient's problem list, medications, allergies, past medical, surgical, social and family historieswere reviewed and updated as appropriate. Review of Systems A comprehensive review of systems was negative except for the following pertinent findings: Musculoskeletal: positive for back pain Detailed comprehensive review of systems as noted in scanned new patient intake form. Objective: PHYSICAL EXAM Vital Signs reviewed GEN: alert, appears stated age and cooperative HEENT: Normocephalic/Atraumatic, EOMI, nares patent, trachea midline CV: adequate distal perfusion, no dependent edema Lungs: non labored breathing, chest rise symmetrical Abdomen: soft, non-tender, no masses Extremities: adequate and functional active range of motion, no peripheral edema or lymphadenopathy Skin: no rashes, normal temperature/turgor/texture, no rash/ulcers/subcutaneous nodules Psych: appropriate affect and appropriate mood; Denied suicidal ideation. Neuro: CN II-XII grossly intact; alert and oriented x 3; sensation to light touch intact in lower extremities bilaterally ; deep tendon reflexes within normal limits (2+) at patellar bilaterally MSK: Gait Normal/ functional without assistive device; abductor 5/5; quadraceps 5/5; hamstrings 5/5; adductors 5/5; iliopsoas 5/5, anterior tibial 5/5; gastrosolues 5/5; EHL 5/5; peroneal posterior tibial 5/5; extremity atrophy is absent; tenderness lumbar spine, left lumbar paraspinals, left sacroiliac joint; positive Long's/AARON/SI joint compression/thigh thrust on the left, negative straight leg raise bilaterally Imaging The following images were personally reviewed and discussed with the patient: 05/2023 MRI Lumbar of the spine shows: FINDINGS: SEGMENTATION: No transitional anatomy with 5 [...] significant abnormality. OTHER: No other significant findings. 02/2023 XR Lumbosacral of the spine shows: Bilateral pars defects at L5 without evidence of instability Assessment: Assessment Therefore, Michelle Gomez is a 38 y.o. female with a history of chronic left- sided low back pain, which began about 2 years ago. At that time, she did have a slip and fall, but is unsure if this wasthe cause of her current symptoms. On today's visit, she describes left-sided low back/buttock pain, with some radiation into the proximal thigh. However, she denies any radiation of pain in the distal left lower extremity, or any numbness/tingling in the lower extremities. She has participated in physical therapy over the summer, which she did not find to be helpful. However, she denies any prior spinal injections or surgeries to her lumbar spine. I did review the patient's lumbar MRI dated 2022, and the results are described in greater detail above. Notably, at L5-S1, there is grade 1 anterolisthesis with a mild disc bulge. On examination today, the patient did not demonstrate any significant clinical signs or symptoms of a lumbar radiculopathy. Rather, she had tenderness over the left sacroiliac joint, and pain with provocative testing of this joint. Therefore, given the patient's symptoms and examination findings, as well as her lack of benefit with more conservative treatment including PT, I discussed with her the option of a left sacroiliac joint injection under fluoroscopic guidance. I reviewed radiographic findings with the patient for better explanation and to clarify specific underlying issues contributing to pain symptoms. The risks, benefits, and alternatives to the procedure were explained. The patient is scheduled to undergo a follow-up with neurology as well as an EMG towards the beginning of next month. Therefore, she would like to follow-up with neurologyfirst, and will contact our office if she would like to proceed forward with the above-stated injection after visiting with neurology. Plan: Continue with physical therapy learned home exercise program which will be paramount to the long-term management of lessening chronic spine pain exacerbations. Recommended healthy diet and increase in cardiovascular exercise to facilitate weight loss which will be paramount to the long-term management of spine health and overall wellness. Risks and benefits of the procedures were discussed with the patient. Risks include, but are not limited to: bleeding; infection; headache; worse pain; no relief from the procedure(s); transient decrease in immunity; paresthesias; nerve damage; paralysis; allergic reaction to the medication(s). In the future we may consider a Sacroiliac Joint injections on the Left side based on the exam and history as well as the image findings. Depending on the efficacy of these injections we can considerrepeating the injection, but with a limit of 4 steroid joint injections a year. Patient will call if wishes to proceed. If patient does not respond to the above, consider use of Cymbalta. Return to clinic for evaluation of our recommendations and make further adjustments in as needed. Otherwise, patient instructed to follow up with primary/referring provider and consider the above recommendations; if pain should exacerbate or not respond to the above, patient was instructed to call our office to consider adjusting the above recommendations and treatment options as needed. Please send a copy to referring provider, Elías Muhammad, DO Also send a copy to the primary provider, Delonte Marin MD .Thank you very much for allowing me to support you in the care of yourpatient. Please do not hesitate to contact me if I can be of any further assistance. 50% of this clinic visit was spent with direct interaction during my counseling, education and instruction with this patient. This document was dictated using [employer]; passenger tire builder variances may occur documented in this encounter Plan of Treatment Scheduled Referrals Name Type Priority Associated Diagnoses Orde r Schedule Amb Ref to Pain Clinic Outpatient Referral Routine Chronic midline low back pain, unspecified whether sciatica present Spondylolisthesis of lumbosacral region Chronic midline low back pain without sciatica Ordered: 05/28/2023 documented as of this encounter Goals Goal Patient Goal Type Associated Problems Recent Progress Patient-Stated? 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) No Delonte Marin MD Use sunscreen daily Lifestyle No Divya Cr, RN Frequent Skin Checks Lifestyle No Divya Cr, RN documented as of this encounter Visit Diagnoses Diagnosis Chronic left-sided low back pain without sciatica- Primary Sacroiliac pain Disorders of sacrum Bulge of lumbar disc without myelopathy Displacement of lumbar intervertebral disc without myelopathy Lumbosacral spondylosis without myelopathy documented in this encounter Additional Health Concerns Assessment Noted Time PHQ-9 Depression Total Score: 0 10/07/20 19 10:06 AM OCCUPATIONAL HEALTH SPECIALIST documented as of this encounter Care Teams Forestry Biology Specialist Relationship Specialty [place] [address] [place] [address] [address] [place] [address] PCP - General Podiatry 08/23/15 documented as of this encounter
--- OUTSIDE RECORDS SUMMARY | 2024-11-30 10:12 | XMS_ITS | Encounter Summary ---
Author Organization [facility] Address [address] [place] [address] Care Team Providers Care Warehouse Analyst Name Role Phone Delonte Marin MD Primary Care Provider +1- [phone] Encounter Details Date Type Department Care Team (Latest Contact Info) Description 08/13/2023 Travel Social History Tobacco Use Types Packs/Day [...] < 140/90 Blood Pressure 118/82(2024 10:05 AM TRAFFIC ANALYST) No Delonte Marin MD Use sunscreen daily Lifestyle No Divya Cr, RN Frequent Skin Checks Lifestyle No Divya Cr, RN documented as of this encounter Visit Diagnoses Not on filedocumented in this encounter Additional Health Concerns Assessment Noted Time PHQ-9 Depression Total Score: 0 10/07/20 19 10:06 AM TRAFFIC ANALYST documented as of this encounter Care Teams Warehouse Analyst Relationship Specialty Start Date End Date Delonte Marin MD [address] [facility] [address] [place] [address] PCP - General Podiatry 08/23/15 documented as of this encounter
--- OUTSIDE RECORDS SUMMARY | 2024-11-30 10:12 | XMS_ITS | Encounter Summary ---
Author Organization [employer] Address [address] [place] [address] Care Team Providers Care Director Automotive Name Role Phone Delonte Marin MD Primary Care Provider +1- [phone] Reason for Visit * Reason Comments Cosmetic Encounter Details Date Type Department Care Team ([facility] st Contact Info) Description 08/13/2023 9:00 AM CDT Treatment [facility] [address] [place] [address] Tiffany Mobley MA [address] [place] [address] Social History Tobacco Use Types [...] Progress Notes * Tiffany Mobley MA - 08/13/2023 9:00 AM CDT Images from the original note were not included. Pt here for Lumecca IPL treatment to areas of redness/hyperpigmentation of the face. Procedure discussed, questions answered and consent signed. Skin type 2. Clear ultrasound gel applied to area. Settings 13mj., short pulse two passes, Patient tolerated well. Post instructions reviewed and patient verbalized understanding. RTC in 3-4 weeks or prn. $250 prepaid. Tashi HERNANDES Recommended pairing full face Lumecca with NanoLaserPeel at next visit. documented in this encounter Plan of Treatment Not on file documented as of this encounter Goals Goal Patient Goal Type Associated Problems Recent Progress Patient-Stated? Author Blood Pressure < 140/90 Blood Pressure 118/82(2024 10:05 AM OPERATIONS GENERAL AGENT) No Delonte Marin MD Use sunscreen daily Lifestyle No Divya Cr, RN Frequent Skin Checks Lifestyle No Diyva Cr, RN documented as of this encounter Visit Diagnoses Not on filedocumented in this encounter Additional Health Concerns Assessment Noted Time PHQ-9 Depression Total Score: 0 10/07/20 19 10:06 AM OPERATIONS GENERAL AGENT documented as of this encounter Care Teams Director Automotive Relationship Specialty Start Date End Date Delonte Marin MD [address] [facility] [address] [place] [address] PCP - General Podiatry 08/23/15 documented as of this encounter
--- OUTSIDE RECORDS SUMMARY | 2024-11-30 10:13 | XMS_ITS | Encounter Summary ---
Author Organization [employer] Address [address] [place] [address] Care Team Providers Care Shot Blast Equipment Operator Name Role Phone Delonte Marin MD Primary Care Provider +1- [phone] Reason for Visit * Reason Comments Sore Throat Pt has a sore throat , tested for strep on 03/18/23 for strep in [place] but was negative, given a steroid but did not take it Encounter Details Date Type Department Care Team (Late st Contact Info) Description 03/27/2023 9:20 AM CDT Office Visit [facility] [address] [place] [address] [address] [place] [address] Jaz Elizabeth PA [address] [place] [address] [address] [place] [address] Viral upper respiratory tract infection (Primary Dx); Sore throat; Pharyngitis, unspecified etiology Social History Tobacco Use Types Packs/Day Years [...] Sign Reading Time Taken Comments Blood Pressure 122/88 03/27/2023 9:15 AM CDT Pulse 100 03/27/2023 9:15 AM CDT Temperature 36.2 ??C (97.2 ??F) 03/27/2023 9:15 AM CD T Respiratory Rate 18 03/27/2023 9:15 AM CDT Oxygen Saturation 99% 03/27/2023 9:15 AM CDT Inhaled Oxygen Concentration - - Weight 68.5 kg (151 lb) 03/27/2023 9:15 AM CDT Height 167.6 cm (5' 6 ) 03/27/2023 9:15 AM CDT Body Mass Index 24.37 03/27/2023 9:15 AM CDT documented in this encounter Patient Instructions * Patient Instructions* Jaz Elizabeth PA - 03/27/2023 9:20 AM CDT Rest as much as possible Increase your fluid intake. Drink Gatorade, Pedialyte, peppermint herbal tea--increase your normal intake of fluids. Honey will help with your cough and sore throat Try humidified air. Wash hands frequently. Do not share any drinks, utensils or anything orally Warm salt water gargles 8 times a day for sore throats. Take medications as directed until completed. OTC medications can help treat specific symptoms--You may try Claritin, Flonase and XLear for your symptoms Take Tylenol 500 mg every 4-6 hours as needed for pain and/or fevers or ibuprofen 600 mg every 6 hours as needed for pain and/or fevers The usual duration of a viral illness is 5 to 7 days, but may last up to 2 weeks, this maybe a viral infection. If you develop sharp ear pain, fevers over 101.4, cough producing significant amount offoul sputum or difficulty breathing call the office or seek a medical provider promptly. If your symptoms or overall condition worsen significantly call the office or seek medical care. Call if not improving in 5-7 days. If your symptoms worsen return to the clinic or follow-up with your provider or go to the emergencyroom. * Attachments The following attachments cannot be sent through Care Everywhere. * URI (Upper Respiratory Infection) (Bulgarian) * Sore Throat (Bulgarian) documented in this encounter Progress Notes * Jaz Elizabeth PA - 03/27/2023 9:20 AM CDT [facility] [address] [facility] [address] [facility] [address] Dept: [phone] Dept Loc: [phone] Loc Date: 03/27/2023 Name: Michelle Gomez : 1985 PCP: Delonte Marin MD Subjective: Patient ID and HPI: Michelle Gomez is a pleasant 37 y.o. female, who presents with a complaint of throat. She was tested for strep on 18 March in [place] but states she believes that they did not swabher well enough. She would like to be reevaluated for this. Her symptoms started 2 days before that. She was given a steroid but did not take it. She still believes that she has strep. Allergy Information as of 03/27/23 AMOXICILLIN-POT CLAVULANATE Noted Status Severity Type Reaction 12/24/19 0921 Janeen Dickson, RN 12/24/19 Active Medium Side Effect Nausea And Vomiting Current Outpatient Medications on File Prior to Visit Medication Sig Dispense Refill ??? magnesium 200 MG TABS tablet Take 1 (one) tablet by mouth daily. ??? nortriptyline (PAMELOR) 10 MG capsule TAKE 3 CAPSULES BY MOUTH EVERY NIGHT 90 capsule 11 ??? SUMAtriptan succinate (IMITREX) 100 MG tablet Take 1 tablet by mouth as needed for Migraine. MAX 2 per day. 9 tablet 5 No current facility-administered medications on file prior to visit. Past Medical History: Diagnosis Date ??? Carpal tunnel syndrome Neck disc problems.Sees chiropractor and Celebrex ??? Cervical spondylosis 12/21/2019 ??? Migraines Saw Sullivant. Uses Imitrex and nortriptyline. Less migraines since Mirena out. Past Surgical History: Procedure Laterality Date ??? Carpal tunnel release Left 09/12/2015 Left hand carpal tunnel release./Justin ??? Carpal tunnel release Right 10/24/2015 Right hand carpal tunnel release./Justin ??? Foot surgery Left bunionectomy Review of Systems Constitutional: Negative for chills, fever and malaise/fatigue. HENT: Positive for congestion and sore throat. Negative for ear pain and sinus pain. Respiratory: Negative for cough. Gastrointestinal: Negative for abdominal pain, diarrhea, nausea and vomiting. Musculoskeletal: Negative for myalgias. Neurological: Negative for headaches. Objective: Blood pressure 122/88, pulse 100, temperature 36.2 ??C (97.2 ??F), temperature source Temporal, resp. rate 18, height 167.6 cm (5' 6 ), weight 68.5 kg (151 lb), SpO2 99 %. Physical Exam Vitals and nursing note reviewed. Constitutional: General: She is not in acute distress. Appearance: She is well-developed and normal weight. She is not ill-appearing or toxic-appearing. HENT: Head: Normocephalic and atraumatic. Comments: No sinus pain with palpation Right Ear: Tympanic membrane normal. Left Ear: Tympanic membrane normal. Nose: Congestion and rhinorrhea present. Mouth/Throat: Mouth: Mucous membranes are moist. Pharynx: Posterior oropharyngeal erythema (mild) present. No pharyngeal swelling or oropharyngeal exudate. Tonsils: 0 on the right. 0 on the left. Comments: Steer oropharynx cobblestone appearance with mild erythema Eyes: Conjunctiva/sclera: Conjunctivae normal. Cardiovascular: Rate and Rhythm: Normal rate and regular rhythm. Heart sounds: Normal heart sounds. Pulmonary: Effort: Pulmonary effort is normal. Breath sounds: Normal breath sounds. Musculoskeletal: Cervical back: Normal range of motion and neck supple. Lymphadenopathy: Cervical: Cervical adenopathy present. Skin: General: Skin is warm and dry. Neurological: Mental Status: She is alert. Assessment/Orders: Diagnoses and all orders for this visit: Viral upper respiratory tract infection Sore throat - AMB POCT Rapid Strep A Pharyngitis, unspecified etiology Other orders - fluticasone NASAL (FLONASE) 50 MCG/ACT nasal spray; 2 (two) sprays by Nasal route daily. to each nostril - loratadine (CLARITIN) 10 MG tablet; Take 1 (one) tablet by mouth daily as needed for Allergies. Results for orders placed or performed in visit on 03/27/23 AMB POCT Rapid Strep A Collection Time: 03/27/23 12:00 AM Result Value Ref Range Rapid Strep A Screen Negative Negative No results available. Plan: Patient is being placed on Flonase and Claritin for her congestion. She was given home care instructions with instructions to return for worsening symptoms. She was given a note for work. She was informed as to the reason why she is having the sore throat is due to the postnasal drip that she has and is not aware of it occurring. Signed: SYLVIE Jacques disclaimer This dictation was partially electronically transcribed via [employer]. I endeavor to checkon the accuracy of the meat pickler, but at times nonsensical statements inadvertently make it through the proofreading process. Cosigned by Belén Gotti DO at 04/02/2023 7:40 AM CDT Associated attestation - Belén Gotti DO - 04/02/2023 7:40 AM CDT I have read the documentation and agree with the PAC Treatment plan. documented in this encounter Plan of Treatment Not on file documented as of this encounter Goals Goal Patient Goal Type Associated Problems Recent Progress Patient-Stated? Author Blood Pressure < 140/90 Blood Pressure 118/82(2024 10:05 AM HEALTH PRACTICE MANAGER) No Delonte Marin MD Use sunscreen daily Lifestyle No Divya Cr RN Frequent Skin Checks Lifestyle No Divya Cr, RN documented as of this encounter Procedures Procedure Name Priority Date/Time Associated Diagnosis Comments AMB POCT RAPID STREP A Routine 03/27/2023 Sore throat documented in this encounter Results * AMB POCT Rapid Strep A (03/27/2023) Rapid Strep A Screen Negative Negative [facility] POCTS 03/27/2023 Jaz [facility] POINT OF CARE TEST ORDE RABLES Final Result [facility] POCTS documented in this encounter Visit Diagnoses Diagnosis Viral upper respiratory tract infection- Primary Acute upper respiratory infections of unspecified site Sore throat Acute pharyngitis Pharyngitis, unspecified etiology documented in this encounter Additional Health Concerns Assessment Noted Time PHQ-9 Depression Total Score: 0 10/07/20 19 10:06 AM HEALTH PRACTICE MANAGER documented as of this encounter Care Teams Shot Blast Equipment Operator Relationship Specialty Start Date End Date Delonte Marin MD [address] [facility] [address] [place] [address] PCP - General Podiatry 08/23/15 documented as of this encounter
--- OUTSIDE RECORDS SUMMARY | 2024-11-30 10:13 | XMS_ITS | Encounter Summary ---
Author Organization [employer] Address [address] [place] [address] Care Team Providers Care Rubber Engraver Name Role Phone Delonte Marin MD Primary Care Provider +1- [phone] Reason for Visit * Reason Comments Cosmetic Encounter Details Date Type Department Care Team ([facility] st Contact Info) Description 12/17/2022 9:45 AM CHEMISTRY SPECIALIST Treatment [facility] Dermatology [address] [place] [address] Tiffany Mobley MA [address] [place] [address] Social History Tobacco Use Types [...] Progress Notes * Tiffany Mobley MA - 12/17/2022 9:45 AM CST Pt here for hair reduction to Inner thigh and underarms . Skin type 2. Procedure discussed with patient. Consent signed. Skin cleansed with alcohol. Clear ultrasound gel applied to treatment area. Settings 25mj, short pulse. Patient tolerated well. Post procedure instructions given to patient and patient verbalized understanding. RTC in 4-6 weeks or prn. $100 inner thigh and $100 for underarms. ENemes LE ISTRY SPECIALIST documented in this encounter Plan of Treatment Not on file documented as of this encounter Goals Goal Patient Goal Type Associated Problems Recent Progress Patient-Stated? Author Blood Pressure < 140/90 Blood Pressure 118/82(2024 10:05 AM CHEMISTRY SPECIALIST) No Delonte Marin MD Use sunscreen daily Lifestyle No Diyva Cr RN Frequent Skin Checks Lifestyle No Divya Cr RN documented as of this encounter Visit Diagnoses Not on filedocumented in this encounter Additional Health Concerns Assessment Noted Time PHQ-9 Depression Total Score: 0 10/07/20 19 10:06 AM CHEMISTRY SPECIALIST documented as of this encounter Care Teams Rubber Engraver Relationship Specialty Start Date End Date Delonte Marin MD [address] [facility] [address] [place] [address] PCP - General Podiatry 08/23/15 documented as of this encounter
--- OUTSIDE RECORDS SUMMARY | 2024-11-30 10:13 | XMS_ITS | Encounter Summary ---
Author Organization [email or web address] Address [address] [place] [address] Care Team Providers Care Publications Distribution Clerk Name Role Phone Delonte Marin MD Primary Care Provider +1- [phone] Reason for Referral * Referral (Routine) - Closed Specialty Diagnoses / Procedures Referred By Tommie t Referred To Contact Physical Therapy Diagnoses Chronic midline low back pain, unspecified whether sciatica present Spondylolisthesis of lumbosacral region Jana Muhammad DO [address] [place] [address] Phone: tel: fax: REF [facility] [address] Phone: tel: fax: Referral ID Status Reason Start Date Expiration Date V isits Requested Visits Authorized [id number] Closed Specialty Services Required 02/26/2023 08/29/2024 1 1 Reason for Visit * Reason Comments Follow-up Unscheduled follow u p of MID LOW back pain Encounter Details Date Type Department Care Team (Late st Contact Info) Description 02/26/2023 10:00 AM CDT Office Visit [facility] [address] [place] [phone] Jana Muhammad DO [address] [place] [address] Chronic midline low back pain, unspecified whether sciatica present (Primary Dx); Spondylolisthesis of lumbosacral region Social History Tobacco Use Types Packs/Day Years [...] this encounter Patient Instructions * Patient Instructions* Jana Muhammad DO - 02/26/2023 10:00 AM CDT -Check additional lumbar x-rays before leaving today. -We will call with any pertinent abnormal x-ray findings. -Send order for PT in [place] as ordered. -See back in 12 weeks or sooner as needed. documented in this encounter Progress Notes * Jana Muhammad DO - 02/26/2023 10:00 AM CDT [facility] [address] [place] [address] SUBJECTIVE: Chief Complaint Patient presents with ??? Follow-up Unscheduled follow up of MID LOW back pain Michelle Gomez is a 37 y.o. female here today for an unscheduled follow up of MID LOW back pain. We saw Michelle for this issue on 04/09/2022. At that time the place order for her to attend physical therapy but unfortunately she was not able to do so due to the fact that she was relocating her home at that time. Thereafter her symptoms improved with activity modifications and she has not had too muchtrouble up until the past 4 to 6 weeks or so. Since the exacerbation, she states her back pain has gotten worse. She states her pain is constant with sitting increasing this pain. She reports occasional sciatic type symptoms into the left buttocks, hip and upper thigh area. Reposition does give Michelle some relief. She does not report any lower extremity weakness. No change in bowel/bladder functioning or saddle anesthesia. She does take OTC Advil for pain, which does help some. MEDICATION: Current Outpatient Medications: ??? fluticasone NASAL (FLONASE) 50 MCG/ACT nasal spray, 2 (two) sprays by Nasal route daily. to each nostril, Disp: 16 g, Rfl: 1 ??? loratadine (CLARITIN) 10 MG tablet, Take 1 (one) tablet by mouth daily as needed for Allergies., Disp: 30 tablet, Rfl: 0 ??? magnesium 200 MG TABS tablet, Take 1 (one) tablet by mouth daily., Disp: , Rfl: ??? nortriptyline (PAMELOR) 10 MG capsule, TAKE 3 CAPSULES BY MOUTH EVERY NIGHT, Disp: 90 capsule, Rfl: 11 ??? SUMAtriptan succinate (IMITREX) 100 MG tablet, Take 1 tablet by mouth as needed for Migraine. MAX 2 per day., Disp: 9 tablet, Rfl: 5 ??? tazarotene (AVAGE) 0.1 % cream, Apply to the hands daily., Disp: 60 g, Rfl: 2 Family History Problem Relation Age of Onset ??? Skin cancer Mother ??? Celiac disease Mother ??? Migraines Father ??? Diabetes Paternal Grandmother ??? Diabetes Paternal Grandfather ??? Cancer Neg Hx ??? Heart disease Neg Hx Past Surgical History: Procedure Laterality Date ??? Carpal tunnel release Left 09/12/2015 Left hand carpal tunnel release./[place] ??? Carpal tunnel release Right 10/24/2015 Right hand carpal tunnel release./[place] ??? Foot surgery Left bunionectomy Past Medical History: Diagnosis Date ??? Carpal tunnel syndrome Neck disc problems.Sees chiropractor and Celebrex ??? Cervical spondylosis 12/21/2019 ??? Migraines Saw [facility]. Uses Imitrex and nortriptyline. Less migraines since Mirena out. Immunization History Administered Date(s) Administered ??? COVID-19 (PFIZER-yoo cap) mRNA ages 12+ 07/10/2021 ??? COVID-19 (PFIZER-purple cap) MRNA ages 12+ 06/19/2021 ??? Tdap 06/30/2020 PROBLEM LIST: Patient Active Problem List Diagnosis ??? Seborrheic keratoses ??? Neck pain ??? Cervicocranial syndrome of cervical region ??? Cervical spondylosis ??? Visual changes ??? Ophthalmic migraine ??? Chronic fatigue ??? OCD (obsessive compulsive disorder) ??? Anxiety ??? Lumbar back pain ??? Sore throat OBJECTIVE: There were no vitals taken for this visit. There is no height or weight on file to calculate BMI. Physical Exam Right Hip Exam Range of Motion External rotation: normal Internal rotation: normal Muscle Strength Right hip normal muscle strength: Extension-5. Abduction: 4/5 Adduction: 5/5 Flexion: 4/5 Left Hip Exam Range of Motion External rotation: normal Internal rotation: normal Muscle Strength Left hip normal muscle strength: Extension-5. Abduction: 4/5 Adduction: 5/5 Flexion: 4/5 Comments: Single-leg extension test is positive Zhao's positive. Presents equivocal Back Exam Tenderness The patient is experiencing tenderness in the lumbar and sacroiliac. Range of Motion The patient has normal back ROM. Extension: 30 (trt!) Flexion: 90 (trt!) Lateral bend right: 30 (trt!) Lateral bend left: 30 Rotation right: 30 Rotation left: 30 Muscle Strength Right Quadriceps: 5/5 Left Quadriceps: 5/5 Right Hamstrings: 5/5 Left Hamstrings: 5/5 Tests Straight leg raise right: negative Straight leg raise left: negative Reflexes Patellar: 2/4 Achilles: 2/4 Other Sensation: normal Gait: [place] [address] DIAGNOSTIC IMAGING Name: MICHELLE GOMEZ Ordering Phys: JANA MUHAMMAD Date of : 1985 Gender: F Accession Number: [id number] EXAM DESCRIPTION: XR LUMBOSACRAL SPINE 2 OR 3 VIEWS REASON FOR STUDY: Low back pain for 6 months TECHNIQUE: 3radiographic views acquired of the lumbar spine. COMPARISON: None. FINDINGS: ALIGNMENT: Mild anterolisthesis of L5 upon S1. Alignment otherwise normal. VERTEBRAE: Vertebral bodies of normal height. No facet arthropathy. There appear to be bilateral L5 pars defects. DISCS: Disc heights well-maintained. FORAMINA: No osseous stenosis. HARDWARE: None. SOFT TISSUES: No soft tissue swelling. IMPRESSION: Apparent bilateral L5 pars defects with mild anterolisthesis of L5 upon S1, chronic findings. No acute abnormality identified involving the lumbar spine. THIS IS AN ELECTRONICALLY VERIFIED FINAL REPORT 04/09/2022 11:18 AM - Electronically signed by Javier Chaudhary M.D. ASSESSMENT: Acute exacerbation of chronic low back pain following a slip and fall onto a tile floor last year with evaluation today is consistent with mechanical lumbar back pain +/- left sided sciatica and possibly secondary to exacerbation of spondylolisthesis at L5-S1. See plan below. 1. Chronic midline low back pain, unspecified whether sciatica present 2. Spondylolisthesis of lumbosacral region PLAN: -Pertinent imaging reviewed and discussed in the office today. -Check additional lumbar x-rays before leaving today. -We will call with any pertinent abnormal x-ray findings. -Send order for PT in [place] as ordered. -See back in 12 weeks or sooner as needed. -She agrees with and understands this plan. Follow up in about 12 weeks (around 05/21/2023). Medications ordered this visit: Requested Prescriptions No prescriptions requested or ordered in this encounter Other Orders placed this visit: Orders Placed This Encounter Procedures ??? XR Lumbosacral Spine Min 4 Views ??? Amb Ref to Physical Therapy Patient Instructions -Check additional lumbar x-rays before leaving today. -We will call with any pertinent abnormal x-ray findings. -Send order for PT in [place] as ordered. -See back in 12 weeks or sooner as needed. Jana Muhammad DO This document was dictated using Dragon; manager pricing variances may occur. documented in this encounter Plan of Treatment Not on file documented as of this encounter Goals Goal Patient Goal Type Associated Problems Recent Progress Patient-Stated? Author Blood Pressure < 140/90 Blood Pressure 118/82(2024 10:05 AM METAL FITTER) No Delonte Marin MD Use sunscreen daily Lifestyle No Divya Cr, RN Frequent Skin Checks Lifestyle No Divya Cr, RN documented as of this encounter Procedures Procedure Name Priority Date/Time Associated Diagnosis Comments AMB REFERRAL TO PHYSICAL THERAPY EVAL AND TREAT Routine 03/15/2023 10:47 AM CDT Chronic midline low back pain, unspecified whether sciatica present Spondylolisthesis of lumbosacral region documented in this encounter Results * Amb Ref to Physical Therapy (03/15/2023 10:47 AM CDT) Jana Muhammad DO OUTPATIENT REFERRAL ORDERABLE S Final Result * XR Lumbosacral Spine Min 4 Views (02/26/2023 10:58 AM CDT) Anatomical Region Laterality Modality T-spine, L-spine, Pelvis Compute d Radiography 02/26/2023 10:5 8 AM CDT Narrative 02/26/2023 8:[address] PM [address]T [address] ??[address] DIAGNOSTIC IMAGING Name: MICHELLE GOMEZ ??Ordering Phys: JANA MUHAMMAD Date of : 1985 ?Gender: F ??Accession Number: [id number] EXAM DESCRIPTION: XR LUMBOSACRAL SPINE MIN 4 VIEWS REASON FOR STUDY: increased lower back pain since slipping on floor 1.5 years ago TECHNIQUE: 5 radiographic views acquired of the lumbar spine. COMPARISON: 04/09/2022 FINDINGS: ALIGNMENT: ??Minimal anterolisthesis of L5 on S1. No evidence of instability with flexion or extension SEGMENTATION: 5 non rib-bearing vertebral bodies. VERTEBRAE: Vertebral bodies of normal height. ??Bilateral pars defects at L5. ??No facet arthropathy. DISCS: Disc heights well-maintained. FORAMINA: No osseous stenosis. HARDWARE: None. SOFT TISSUES: Unremarkable. OTHER: No other significant abnormalities IMPRESSION: Bilateral pars defects at L5 without evidence of instability THIS IS AN ELECTRONICALLY VERIFIED FINAL REPORT 02/26/2023 8:07 PM - Electronically signed by Jaswinder Spears M.D. Procedure Note Jaswinder Spears MD - 02/26/[address] [address] DIAGNOSTIC IMAGING Name: MICHELLE GOMEZ Ordering Phys: JANA MUHAMMAD Date of : 1985 Gender: F Accession Number: [id number] EXAM DESCRIPTION: XR LUMBOSACRAL SPINE MIN 4 VIEWS REASON FOR STUDY: increased lower back pain since slipping on floor 1.5 years ago TECHNIQUE: 5 radiographic views acquired of the lumbar spine. COMPARISON: 04/09/2022 FINDINGS: ALIGNMENT: Minimal anterolisthesis of L5 on S1. No evidence of instability with flexion or extension SEGMENTATION: 5 non rib-bearing vertebral bodies. VERTEBRAE: Vertebral bodies of normal height. Bilateral pars defects at L5. No facet arthropathy. DISCS: Disc heights well-maintained. FORAMINA: No osseous stenosis. HARDWARE: None. SOFT TISSUES: Unremarkable. OTHER: No other significant abnormalities IMPRESSION: Bilateral pars defects at L5 without evidence of instability THIS IS AN ELECTRONICALLY VERIFIED FINAL REPORT 02/26/2023 8:07 PM - Electronically signed by Jaswinder Spears M.D. Jana Muhammad DO IMG DIAGNOSTIC IMAGING ORDERA BLES Final Result documented in this encounter Visit Diagnoses Diagnosis Chronic midline low back pain, unspecified whether sciatica present- Primary Spondylolisthesis of lumbosacral region Acquired spondylolisthesis Chronic midline low back pain without sciatica Spondylolisthesis of lumbosacral region Acquired spondylolisthesis documented in this encounter Additional Health Concerns Assessment Noted Time PHQ-9 Depression Total Score: 0 10/07/20 19 10:06 AM METAL FITTER documented as of this encounter Care Teams Publications Distribution Clerk Relationship Specialty Start Date End Date Delonte Marin MD [address] [facility] [address] [place] [address] PCP - General Podiatry 08/23/15 documented as of this encounter
--- OUTSIDE RECORDS SUMMARY | 2024-11-30 10:13 | XMS_ITS | Encounter Summary ---
Author Organization [employer] Address [address] [place] [address] Care Team Providers Care Pretzel Cooker Name Role Phone Delonte Marin MD Primary Care Provider +1- [phone] Encounter Details Date Type Department Care Team (Latest Contact Info) Description 05/25/2023 10:54 AM CDT - 05/25/2023 11:59 PM CDT Hospital Encounter [facility] General Radiology [address] [place] [id number] Injury of right foot, initial encounter Discharge Disposition: Home - Discharge to Home [...] 2 per day. 9 tablet 5 05/14/2023 fluticasone NASAL (FLONASE) 50 MCG/ACT nasal spray 2 (two) sprays by Nasal route daily. to each nostril 16 g 1 03/27/2023 08/01/202 4 loratadine (CLARITIN) 10 MG tablet Take 1 (one) tablet by mouth daily as needed for Allergies. 30 tablet 03/27/2023 4 magnesium 200 MG TABS tablet Take 1 (one) tablet by mouth daily. 4 nortriptyline (PAMELOR) 10 MG capsuleIndication s:Chronic migraine without aura without status migrainosus, not intractable TAKE 3 CAPSULES BY MOUTH EVERY NIGHT 90 capsule 11 11/14/2022 3 documented as of this encounter Plan of Treatment Not on file documented as of this encounter Goals Goal Patient Goal Type Associated Problems Recent Progress Patient-Stated? Author Blood Pressure < 140/90 Blood Pressure 118/82(2024 10:05 AM CLINICAL SPECIALTY REP) No Delonte Marin MD Use sunscreen daily Lifestyle No Divya Cr, RN Frequent Skin Checks Lifestyle No Divya Cr, RN documented as of this encounter Procedures Procedure Name Priority Date/Time Associated Diagnosis Comments XR FOOT MIN 3 VIEWS Routine 05/25/2023 1 1:00 AM CDT Injury of right foot, initial encounter documented in this encounter Results * XR Foot Min 3 Views R (05/25/2023 11:00 AM CDT) Anatomical Region Laterality Modality Foot, Ankle Computed Radiogr aphy 05/25/2023 10:5 8 AM CDT Impressions 05/25/2023 12:49 PM CDT No acute osseus abnormalities. Isce-rj-zlrotyau soft tissue swelling along the dorsal aspect of the right foot identified on lateral view. THIS IS AN ELECTRONICALLY VERIFIED FINAL REPORT 05/25/2023 12:47 PM - Electronically signed by Javier Chaudhary M.D. Narrative 05/25/2023 12:49 PM CDT [address] [place] [address] DIAGNOSTIC IMAGING Name: MICHELLE GOMEZ ??Ordering Phys: SHEELA CHENG Date of : 1985 ?Gender: F ??Accession Number: [id number] EXAM DESCRIPTION: XR FOOT MIN 3 VIEWS CILCDI REASON FOR STUDY: Dropped 5260 pound box on foot 1 week ago, persistent pain with bruising TECHNIQUE: 3 views of the right foot submitted COMPARISON: None. FINDINGS: ALIGNMENT: Normal BONES: Intact. JOINT: No arthropathy, no loose bodies, no erosions. SOFT TISSUE: On the lateral view there is soft tissue swelling, tixr-he-xhxbimfy in degree dorsally at the level of the base of the metatarsal bones. ??No radiopaque foreign body. Procedure Note Javier Chaudhary MD - 05/25/[address] [place] [address] DIAGNOSTIC IMAGING Name: MICHELLE GOMEZ Ordering Phys: SHEELA CHENG Date of : 1985 Gender: F Accession Number: [id number] EXAM DESCRIPTION: XR FOOT MIN 3 VIEWS CILCDI REASON FOR STUDY: Dropped 5260 pound box on foot 1 week ago, persistent pain with bruising TECHNIQUE: 3 views of the right foot submitted COMPARISON: None. FINDINGS: ALIGNMENT: Normal BONES: Intact. JOINT: No arthropathy, no loose bodies, no erosions. SOFT TISSUE: On the lateral view there is soft tissue swelling, gtxl-ca-nbwrqlgd in degree dorsally at the level of the base of the metatarsal bones. No radiopaque foreign body. IMPRESSION: No acute osseus abnormalities. Mdfi-lk-mykbsiwc soft tissue swelling along the dorsal aspect of the right foot identified on lateral view. THIS IS AN ELECTRONICALLY VERIFIED FINAL REPORT 05/25/2023 12:47 PM - Electronically signed by Javier Chaudhary M.D. Sheela Cheng WORKFORCE SERVICES REPRESENTATIVE IMG DIAGNOSTIC IMAGING ORDERA BLES Final Result documented in this encounter Visit Diagnoses Diagnosis Injury of right foot, initial encounter documented in this encounter Additional Health Concerns Assessment Noted Time PHQ-9 Depression Total Score: 0 10/07/20 19 10:06 AM CLINICAL SPECIALTY REP documented as of this encounter Care Teams Pretzel Cooker Relationship Specialty Start Date End Date Delonte Marin MD [address] [place] [address] [address] [place] [address] PCP - General Podiatry 08/23/15 documented as of this encounter
--- OUTSIDE RECORDS SUMMARY | 2024-11-30 10:13 | XMS_ITS | Encounter Summary ---
Author Organization [employer] Address [address] [place] [address] Care Team Providers Care Statue Carver Name Role Phone Delonte Marin MD Primary Care Provider +1- [phone] Reason for Visit * Reason Comments Medication Refill Encounter Details Date Type Department Care Team (Late st Contact Info) Description 11/14/2022 Refill [facility] Neurology [address] [place] [phone] Delonte Farfan MD [address] [place] [address] [address] [place] [address] Chronic migraine without aura without status migrainosus, not intractable Social History Tobacco Use Types Packs/Day Years [...] < 140/90 Blood Pressure 118/82(2024 10:05 AM MANAGER DRILLING) No Delonte Marin MD Use sunscreen daily [...] Total Score: 0 10/07/20 19 10:06 AM MANAGER DRILLING documented as of this encounter Care Teams Statue Carver Relationship Specialty Start Date End Date Delonte Marin MD [address] [facility] [address] [place] [address] PCP - General Podiatry 08/23/15 documented as of this encounter
--- OUTSIDE RECORDS SUMMARY | 2024-11-30 10:13 | XMS_ITS | Encounter Summary ---
Author Organization [employer] Address [address] [place] [address] Care Team Providers Care Cupola Patcher Helper Name Role Phone Delonte Marin MD Primary Care Provider +1- [phone] Encounter Details Date Type Department Care Team (Latest Contact Info) Description 05/25/2023 Travel Social History Tobacco Use Types Packs/Day [...] < 140/90 Blood Pressure 118/82(2024 10:05 AM RELATIONS LIAISON) No Delonte Marin MD Use sunscreen daily Lifestyle No Divya Cr, RN Frequent Skin Checks Lifestyle No Divya Cr, RN documented as of this encounter Visit Diagnoses Not on filedocumented in this encounter Additional Health Concerns Assessment Noted Time PHQ-9 Depression Total Score: 0 10/07/20 19 10:06 AM RELATIONS LIAISON documented as of this encounter Care Teams Cupola Patcher Helper Relationship Specialty Start Date End Date Delonte Marin MD [address] [facility] [address] [place] [address] PCP - General Podiatry 08/23/15 documented as of this encounter
--- OUTSIDE RECORDS SUMMARY | 2024-11-30 10:13 | XMS_ITS | Encounter Summary ---
Author Organization [employer] Address [address] [place] [address] Care Team Providers Care Bottom Pounder Cement Shoes Name Role Phone Delonte Marin MD Primary Care Provider [phone]- [phone] Reason for Visit * Reason Comments Follow-up Encounter Details Date Type Department Care Team ([facility] st Contact Info) Description 12/26/2022 8:45 AM THREAD MARKER Office Visit [facility] Dermatology [address] [place] [id number] Juany Hurst MD [address] [place] [address] Verruca plana (Primary Dx); Disturbance of skin sensation Social History Tobacco Use Types Packs/Day Years [...] Progress Notes * Juany Hurst MD - 12/26/2022 8:45 AM CST CHIEF COMPLAINT: Follow-up HISTORY OF PRESENT ILLNESS: Michelle Gomez is a very pleasant 37 y.o. female presenting to clinic for follow up of verruca plana. The patient was last seen in Dermatology 10/17/22 She returns today for a follow-up of verruca plana to the hands for which she was using Tazorac 0.1% cream in the past and this was not successful. She was evaluated by CUT OFF SAW SET UP OPERATOR Romy Reilly and these areas were treated with liquid nitrogen without success. She wanted to try Tazorac again so we gave it another couple months and the smaller ones cleared but the larger ones haven't. She'd like to discussother options. REVIEW OF SYSTEMS: Negative except as noted in HPI. PROBLEM LIST: Patient Active Problem List Diagnosis ??? Seborrheic keratoses ??? Neck pain ??? Cervicocranial syndrome of cervical region ??? Cervical spondylosis ??? Visual changes ??? Ophthalmic migraine ??? Chronic fatigue ??? OCD (obsessive compulsive disorder) ??? Anxiety ??? Lumbar back pain ??? 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 fluticasone NASAL (FLONASE) 50 MCG/ACT nasal spray, 0 ??? loratadine (CLARITIN) 10 MG tablet, 0 ??? magnesium 200 MG TABS tablet, 0 ??? nortriptyline (PAMELOR) 10 MG capsule, 0 ??? SUMAtriptan succinate (IMITREX) 100 MG tablet, 0 ??? tazarotene (AVAGE) 0.1 % cream, 0 ALLERGIES: Allergies Allergen Reactions ??? Augmentin [...] type II. Skin examination included the following: Right upper extremity Left upper extremity Pertinent findings include: Scattered flat pink papules to dorsal hands. RESULTS REVIEW: N/A IMPRESSION & PLAN: Flat warts, chronic, not at treatment goal As they're limited in area, will have her try WartPeel applied nightly under occlusion for a few days or until the warts easily peel off. Discussed application technique and avoiding accidental application to other areas. Discussed trying Aldara in the future if needed Once clear, perhaps six months of Tazorac to maintain clearance would be helpful. DISPOSITION: Follow up as needed. Juany Hurst MD Department of Dermatology [facility] AD MARKER documented in this encounter Plan of Treatment Not on file documented as of this encounter Goals Goal Patient Goal Type Associated Problems Recent Progress Patient-Stated? Author Blood Pressure < 140/90 Blood Pressure 118/82(2024 10:05 AM THREAD MARKER) No Delonte Marin MD Use sunscreen daily Lifestyle No Divya Cr, RN Frequent Skin Checks Lifestyle No Divya Cr, RN documented as of this encounter Visit Diagnoses Diagnosis Verruca plana- Primary Other specified viral warts Disturbance of skin sensation documented in this encounter Additional Health Concerns Assessment Noted Time PHQ-9 Depression Total Score: 0 10/07/20 19 10:06 AM THREAD MARKER documented as of this encounter Care Teams Bottom Pounder Cement Shoes Relationship Specialty Start Date End Date Delonte Marin MD [address] [facility] [address] [place] [address] PCP - General Podiatry 08/23/15 documented as of this encounter
--- OUTSIDE RECORDS SUMMARY | 2024-11-30 10:13 | XMS_ITS | Encounter Summary ---
Author Organization [facility] Address [address] [place] [address] Care Team Providers Care Seconds Inspector Name Role Phone Delonte Marin MD Primary Care Provider [phone]- [phone] Reason for Visit * Reason Onset Date Comments Medication Refill 05/14/2023 Encounter Details Date Type Department Care Team ([facility] st Contact Info) Description 05/14/2023 Telephone [facility] Neurology [address] [place] [address] Arias Montez MA [address] [place] [address] Medication Refill Social History Tobacco Use Types Packs/Day Years [...] encounter Miscellaneous Notes * Telephone Encounter - Arias Houston MA - 05/14/2023 9:08 AM CDT Patient called requesting imitrex refill, ok with Dr cisse refill sent to sahri villarreal. documented in this encounter Plan of Treatment Not on file documented as of this encounter Goals Goal Patient Goal Type Associated Problems Recent Progress Patient-Stated? Author Blood Pressure < 140/90 Blood Pressure 118/82(2024 10:05 AM LIFE SKILLS WORKER) No Delonte Marin MD Use sunscreen daily Lifestyle No Divya Cr, RN Frequent Skin Checks Lifestyle No Divya Cr, RN documented as of this encounter Visit Diagnoses Diagnosis Migraine without aura and without status migrainosus, not intractable Migraine without aura, without mention of intractable migraine without mention of status migrainosus documented in this encounter Additional Health Concerns Assessment Noted Time PHQ-9 Depression Total Score: 0 10/07/20 10:06 AM LIFE SKILLS WORKER documented as of this encounter Care Teams Seconds Inspector Relationship Specialty Start Date End Date Delonte Marin MD [address] [facility] [address] [place] [address] PCP - General Podiatry 08/23/15 documented as of this encounter
--- OUTSIDE RECORDS SUMMARY | 2024-11-30 10:13 | XMS_ITS | Encounter Summary ---
Author Organization [employer] Address [address] [place] [address] Care Team Providers Care Brick Setter Name Role Phone Delonte Marin MD Primary Care Provider [phone]- [phone] Reason for Visit * Reason Comments Foot Injury Dropped box on Rt fo ot 1 week ago. Cannot put pressure on top of foot. Able to walk on foot. Bruised area of top of foot. Encounter Details Date Type Department Care Team (Late st Contact Info) Description 05/25/2023 10:15 AM CDT Office Visit [facility] Care [address] [place] [address] [address] [place] [address] [place] [address] [place] [address] [address] [place] [address] Injury of right foot, initial encounter (Primary Dx) Social History Tobacco Use Types [...] Sign Reading Time Taken Comments Blood Pressure 110/84 05/25/2023 10:18 AM CDT Pulse 103 05/25/2023 10:18 AM CDT Temperature 36.7 ??C (98.1 ??F) 05/25/2023 10:18 AM C DT Respiratory Rate - - Oxygen Saturation 99% 05/25/2023 10:18 AM CDT Inhaled Oxygen Concentration - - Weight - - Height - - Body Mass Index - - documented in this encounter Patient Instructions * Patient Instructions* Sheela Cheng NP - 05/25/2023 10:15 AM CDT No immediate concern or obvious fracture on imaging. Will call with radiology report when completed. May have brace recommendations at this time. Continue to rest and ice the area multiple times daily. Keep it elevated when possible. Call if there is increased swelling, redness, or pain. Monitor for decreased sensation, ROM, or worsening gait issues. Let us know if you have questions or concerns. documented in this encounter Progress Notes * Sheela Cheng NP - 05/25/2023 10:15 AM CDT Images from the original note were not included. [address] [facility] [address] Dept: [phone] Dept Loc: [phone] Loc Date: 05/25/2023 Name: Michelle Kevin : 1985 PCP: Delonte Marin MD SUBJECTIVE: Michelle Kevin is a 37 y.o. female. Patient is here today for Chief Complaint Patient presents with ??? Foot Injury Dropped box on Rt foot 1 week ago. Cannot put pressure on top of foot. Able to walk on foot. Bruised area of top of foot. Information obtained from: patient. Today's concerns: Michelle presents to urgent care today with complaints of pain, swelling, and bruising of the right foot after dropping a heavy box on it 1 week ago. She explains that she is able to walk, but it is painful, and it also hurts to the touch. She states the bruising and swelling has gotten slightly better, but she still has a hard knot on the top of her foot. She states she decided she should get it checked to see if it is broken because it still hurts. She denies any numbness, tinging, or decreased sensation in her foot and toes. She also denies any radiation of the pain to her ankle and leg. Smoking or smoke exposure: Social History Tobacco Use Smoking Status Never Smokeless Tobacco Never Review of Systems Constitutional: Positive for activity change (unable to walk as usual, can not put pressure on top of foot, can not wear certain shoes). Respiratory: Negative for wheezing. Cardiovascular: Negative for leg swelling. Musculoskeletal: Positive for gait problem (mild limp, able to walk but painful ). Negative for arthralgias, joint swelling and myalgias. Right foot pain/injury Skin: Positive for color change (bruising of right foot). Negative for pallor, rash and wound. Neurological: Positive for weakness (right foot due to injury). Hematological: Does not bruise/bleed easily. Patient's problem list, medications, allergies, past medical, surgical, social and family historieswere reviewed and updated as appropriate. OBJECTIVE: Vitals: 05/25/23 1018 BP: 110/84 Pulse: 103 Temp: 36.7 ??C (98.1 ??F) SpO2: 99% 36.7 ??C (98.1 ??F) Pulse: 103 RespRate: BP Readings from Last 3 Encounters: 05/25/23 110/84 03/27/23 122/88 03/18/23 118/64 Wt Readings from Last 3 Encounters: 03/27/23 68.5 kg (151 lb) 03/18/23 68.7 kg (151 lb 6.4 oz) 11/08/22 67.1 kg (148 lb) SpO2 W Comments Most recent update: 05/25/2023 10:20 AM SpO2 99% There is no height or weight on file to calculate BMI. Physical Exam Vitals reviewed. Constitutional: General: She is not in acute distress. Appearance: Normal appearance. Cardiovascular: Rate and Rhythm: Normal rate and regular rhythm. Pulses: Normal pulses. Dorsalis pedis pulses are 2+ on the right side and 2+ on the left side. Posterior tibial pulses are 2+ on the right side and 2+ on the left side. Heart sounds: Normal heart sounds, S1 normal and S2 normal. Pulmonary: Effort: Pulmonary effort is normal. No respiratory distress. Breath sounds: Normal breath sounds. No wheezing. Musculoskeletal: General: Swelling, tenderness and signs of injury present. No deformity. Right lower leg: No swelling, deformity, lacerations or tenderness. No edema. Left lower leg: Normal. Right ankle: No swelling, ecchymosis or lacerations. No tenderness. Normal range of motion. Left ankle: Normal. Right foot: Decreased range of motion. Normal capillary refill. Swelling and tenderness present. Nodeformity or laceration. Normal pulse. Left foot: Normal. Legs: Comments: Hard, painful knot in identified area. Generalized bruising of entire top of foot. Slightly decreased ROM with flexion and extension of foot. ROM of ankle normal. No radiation of pain to ankle or leg. Sensation intact in foot and toes. Feet: Right foot: Protective Sensation: 3 sites tested. 3 sites sensed. Skin integrity: Skin integrity normal. Left foot: Protective Sensation: 3 sites tested. 3 sites sensed. Skin integrity: Skin integrity normal. Comments: Normal temperature of lower extremities. Skin: General: Skin is warm and dry. Coloration: Skin is not pale. Findings: Bruising (right foot) present. No erythema, lesion or rash. Neurological: Mental Status: She is alert. Sensory: Sensation is intact. Motor: Weakness present. Coordination: Coordination is intact. Gait: Gait abnormal. reviewed x-ray in office- no obvious fracture as read by Lashawn Cheng NP. This will be over read by radiologist. ASSESSMENT: 1. Injury of right foot, initial encounter Orders Placed This Encounter ??? XR Foot Min 3 Views R Standing Status: Future Number of Occurrences: 1 Standing Expiration Date: 06/24/2023 Order Specific Question: Is the patient ? Answer: No Order Specific Question: Reason for exam: Answer: injury/pain Order Specific Question: Release to patient Answer: Immediate Order Specific Question: Laterality: Answer: R Order Specific Question: Imaging Modality Answer: CR PLAN: No immediate concern or obvious fracture on imaging. Will call with radiology report when completed. May have brace recommendations at this time. Continue to rest and ice the area multiple times daily. Keep it elevated when possible. Call if there is increased swelling, redness, or pain. Monitor for decreased sensation, ROM, or worsening gait issues. Let us know if you have questions or concerns. This exam and medication management conducted with SPEECH LANGUAGE PATHOLOGY ASSISTANT student America Rubi. We were both present for the exam and discussed management. We were both present for discharge and instructions. I concur with her findings and diagnoses. Encounter Date: 05/25/2023 Follow up if symptoms worsen or fail to improve, for increased pain or decreased ROM. Numbness,. Signed: Sheela Cheng NP 05/25/2023 12:24 PM documented in this encounter Plan of Treatment Not on file documented as of this encounter Goals Goal Patient Goal Type Associated Problems Recent Progress Patient-Stated? Author Blood Pressure < 140/90 Blood Pressure 118/82(2024 10:05 AM ROADS AND PARKING LOTS SWEEPER OPERATOR) No Delonte Marin MD Use sunscreen daily Lifestyle No Divya Cr RN Frequent Skin Checks Lifestyle No Divya Cr RN documented as of this encounter Results * XR Foot Min 3 Views R (05/25/2023 11:00 AM CDT) Anatomical Region Laterality Modality Foot, Ankle Computed Radiogr aphy 05/25/2023 10:5 8 AM CDT Impressions 05/25/2023 12:49 PM CDT No acute osseus abnormalities. [id number]-hp-[id number] soft tissue swelling along the dorsal aspect of the right foot identified on lateral view. THIS IS AN ELECTRONICALLY VERIFIED FINAL REPORT 05/25/2023 12:47 PM - Electronically signed by Javier Chaudhary M.D. Narrative 05/25/2023 12:49 PM CDT [address] [place] [address] DIAGNOSTIC IMAGING Name: MICHELLE KEVIN Fabi ??Ordering Phys: SHEELA CHENG Date of : 1985 ?Gender: F ??Accession Number: [id number] EXAM DESCRIPTION: XR FOOT MIN 3 VIEWS CILCDI REASON FOR STUDY: Dropped 5260 pound box on foot 1 week ago, persistent pain with bruising TECHNIQUE: 3 views of the right foot submitted COMPARISON: None. FINDINGS: ALIGNMENT: Normal BONES: Intact. JOINT: No arthropathy, no loose bodies, no erosions. SOFT TISSUE: On the lateral view there is soft tissue swelling, [id number] in degree dorsally at the level of the base of the metatarsal bones. ??No radiopaque foreign body. Procedure Note Javier Chaudhary MD - 05/25/2023 [place] [id number] [facility] [address] [place] [address] DIAGNOSTIC IMAGING Name: MICHELLE KEVIN Ordering Phys: SHEELA CHENG Date of : 1985 Gender: F Accession Number: [id number] EXAM DESCRIPTION: XR FOOT MIN 3 VIEWS CILCDI REASON FOR STUDY: Dropped 5260 pound box on foot 1 week ago, persistent pain with bruising TECHNIQUE: 3 views of the right foot submitted COMPARISON: None. FINDINGS: ALIGNMENT: Normal BONES: Intact. JOINT: No arthropathy, no loose bodies, no erosions. SOFT TISSUE: On the lateral view there is soft tissue swelling, xurr-ph-[id number] in degree dorsally at the level of the base of the metatarsal bones. No radiopaque foreign body. IMPRESSION: No acute osseus abnormalities. Hfay-[id number] soft tissue swelling along the dorsal aspect of the right foot identified on lateral view. THIS IS AN ELECTRONICALLY VERIFIED FINAL REPORT 05/25/2023 12:47 PM - Electronically signed by Javier Chaudhary M.D. Sheela Hunter Skylar SPEECH LANGUAGE PATHOLOGY ASSISTANT IMG DIAGNOSTIC IMAGING ORDERA BLES Final Result documented in this encounter Visit Diagnoses Diagnosis Injury of right foot, initial encounter- Primary Injury of right foot, initial encounter documented in this encounter Additional Health Concerns Assessment Noted Time PHQ-9 Depression Total Score: 0 10/07/20 19 10:06 AM ROADS AND PARKING LOTS SWEEPER OPERATOR documented as of this encounter Care Teams Brick Setter Relationship Specialty [place] [address] [place] [address] [address] [place], [place] [address] PCP - General Podiatry 08/23/15 documented as of this encounter
--- OUTSIDE RECORDS SUMMARY | 2024-11-30 10:13 | XMS_ITS | Encounter Summary ---
Author Organization [employer] Address [address] [place] [address] Care Team Providers Care Steam Fitter Helper Name Role Phone Delonte Marin MD Primary Care Provider +1- [phone] Encounter Details Date Type Department Care Team (Latest Contact Info) Description 01/19/2023 9:10 AM WEAVING INSTRUCTOR - 01/19/2023 11:59 PM WEAVING INSTRUCTOR Hospital Encounter [facility] [address] [place] [id number] Sore throat Discharge Disposition: Home - Discharge [...] this encounter Medications at Time of Discharge fluticasone NASAL (FLONASE) 50 MCG/ACT nasal spray 2 (two) sprays by Nasal route daily. to each nostril 16 g 1 08/03/2022 3 loratadine (CLARITIN) 10 MG tablet Take 1 (one) tablet by mouth daily as needed for Allergies. 30 tablet 08/03/2022 3 magnesium 200 MG TABS tablet Take 1 (one) tablet by mouth daily. 4 nortriptyline (PAMELOR) 10 MG capsuleIndication s:Chronic migraine without aura without status migrainosus, not intractable TAKE 3 CAPSULES BY MOUTH EVERY NIGHT 90 capsule 11 11/14/2022 3 SUMAtriptan succinate (IMITREX) 100 MG tabletIndications :Migraine without aura and without status migrainosus, not intractable Take 1 tablet by mouth as needed for Migraine. MAX 2 per day. 9 tablet 5 01/12/2021 3 tazarotene (AVAGE) 0.1 % creamIndications: Other acne Apply to the hands daily. 60 g 2 10/17/2022 3 documented as of this encounter Plan of Treatment Not on file documented as of this encounter Goals Goal Patient Goal Type Associated Problems Recent Progress Patient-Stated? Author Blood Pressure < 140/90 Blood Pressure 118/82(2024 10:05 AM WEAVING INSTRUCTOR) No Delonte Marin MD Use sunscreen daily Lifestyle No Divya Cr RN Frequent Skin Checks Lifestyle No Divya Cr RN documented as of this encounter Procedures Procedure Name Priority Date/Time Associated Diagnosis Comments STREP A MOLECULAR Routine 01/19/2023 9:1 0 AM WEAVING INSTRUCTOR Sore throat documented in this encounter Results * Group A Strep by Molecular (01/19/2023 9:10 AM WEAVING INSTRUCTOR) Strep A NOT DETECTED NDET 01/19/2023 2:07 PM WEAVING INSTRUCTOR [facility] Other STRUCTURE OF ANTERIOR PORTION OF NECK / Unknown 01/19/2023 9:10 AM WEAVING INSTRUCTOR 01/19/2023 1:23 PM WEAVING INSTRUCTOR us Melania Cheng NP MICROBIOLOGY - GENERAL ORDERA BLES Final Result [facility] [address] [place], [place] [phone] [facility] [address] [place] [address] documented in this encounter Visit Diagnoses Diagnosis Sore throat Acute pharyngitis documented in this encounter Additional Health Concerns Assessment Noted Time PHQ-9 Depression Total Score: 0 10/07/20 19 10:06 AM WEAVING INSTRUCTOR documented as of this encounter Care Teams Steam Fitter Helper Relationship Specialty Start Date End Date Delonte Marin MD [address] [facility] [address] [place] [address] PCP - General Podiatry 08/23/15 documented as of this encounter
--- OUTSIDE RECORDS SUMMARY | 2024-11-30 10:13 | XMS_ITS | Encounter Summary ---
Author Organization [facility] Address [address] [place] [address] Care Team Providers Care Staff Physical Therapist Name Role Phone Delonte Marin MD Primary Care Provider +1- [phone] Reason for Visit * Reason Comments Sore Throat X 2 days Encounter Details Date Type Department Care Team ([facility] st Contact Info) Description 01/19/2023 9:30 AM SHAKE OUT WORKER Office Visit [facility] [address] [place] [address] [address] [place] [address] [place] [address] [place] [address] [address] [place] [address] Sore throat (Primary Dx) Social History Tobacco [...] Sign Reading Time Taken Comments Blood Pressure 114/84 01/19/2023 8:47 AM SHAKE OUT WORKER Pulse 104 01/19/2023 8:47 AM SHAKE OUT WORKER Temperature 36.9 ??C (98.4 ??F) 01/19/2023 8:47 AM CS T Respiratory Rate - - Oxygen Saturation 98% 01/19/2023 8:47 AM SHAKE OUT WORKER Inhaled Oxygen Concentration - - Weight - - Height - - Body Mass Index - - documented in this encounter Progress Notes * Melania Cheng NP - 01/19/2023 9:30 AM CST [facility] [address] [facility] [address] [facility] [address] Dept: [phone] Dept Loc: [phone] Loc Date: 01/19/2023 Name: Michelle Gomez : 1985 PCP: Delonte Marin MD SUBJECTIVE: Michelle Gomez is a 37 y.o. female. Patient is here today for Chief Complaint Patient presents with ??? Sore Throat X 2 days Information obtained from: patient. Today's concerns: Michelle Gomez is a 37 year old female here with her children for evaluation of sore throat. She andher children have had pharyngitis for the past 2 days. They have had several episodes strep pharyngitis in their family these past several weeks. Smoking or smoke exposure: Social History Tobacco Use Smoking Status Never Smokeless Tobacco Never Review of Systems Constitutional: Positive for fatigue. Negative for activity change, appetite change, chills and fever. HENT: Positive for sore throat. Negative for congestion and rhinorrhea. Eyes: Negative. Respiratory: Negative for cough. Cardiovascular: Negative. Gastrointestinal: Negative. Musculoskeletal: Negative. Neurological: Positive for headaches. Hematological: Negative. Patient's problem list, medications, allergies, past medical, surgical, social and family historieswere reviewed and updated as appropriate. OBJECTIVE: Vitals: 01/19/23 0847 BP: 114/84 Pulse: 104 Temp: 36.9 ??C (98.4 ??F) SpO2: 98% 36.9 ??C (98.4 ??F) Pulse: 104 RespRate: BP Readings from Last 3 Encounters: 01/19/23 114/84 11/08/22 136/72 09/20/22 134/88 Wt Readings from Last 3 Encounters: 11/08/22 67.1 kg (148 lb) 10/08/22 67.1 kg (148 lb) 07/19/22 69.2 kg (152 lb 9.6 oz) SpO2 W Comments Most recent update: 01/19/2023 8:48 AM SpO2 98% There is no height or weight on file to calculate BMI. Physical Exam Vitals and nursing note reviewed. Constitutional: General: She is not in acute distress. Appearance: She is well-developed and well-groomed. She is ill-appearing. She is not toxic-appearing. HENT: Head: Normocephalic and atraumatic. Right Ear: Tympanic membrane normal. Left Ear: Tympanic membrane normal. Nose: Nose normal. Mouth/Throat: Mouth: Mucous membranes are moist. No oral lesions. Pharynx: Posterior oropharyngeal erythema present. No pharyngeal swelling or oropharyngeal exudate. Tonsils: No tonsillar exudate or tonsillar abscesses. 1+ on the right. 1+ on the left. Eyes: Conjunctiva/sclera: Conjunctivae normal. Pupils: Pupils are equal, round, and reactive to light. Cardiovascular: Rate and Rhythm: Regular rhythm. Tachycardia present. Pulses: Normal pulses. Heart sounds: Normal heart sounds. Pulmonary: Effort: Pulmonary effort is normal. Breath sounds: Normal breath sounds. Musculoskeletal: General: Normal range of motion. Cervical back: Full passive range of motion without pain, normal range of motion and neck supple. No rigidity. Normal range of motion. Lymphadenopathy: Cervical: Cervical adenopathy present. Right cervical: Superficial cervical adenopathy present. Left cervical: Superficial cervical adenopathy present. Skin: General: Skin is warm and dry. Capillary Refill: Capillary refill takes less than 2 seconds. Neurological: General: No focal deficit present. Mental Status: She is alert and oriented to person, place, and time. Psychiatric: Mood and Affect: Mood normal. Behavior: Behavior is cooperative. ASSESSMENT: 1. Sore throat Orders Placed This Encounter ??? Group A Strep by Molecular Standing Status: Future Number of Occurrences: 1 Standing Expiration Date: 02/18/2023 Order Specific Question: Release to patient Answer: Immediate PLAN: Rapid strep negative. For now treat conservatively- plenty of fluids, rest, avoid OTC multi symptomcold/flu preparations. Sending specimen for Strep confirmation. Due to the current COVID-19 world pandemic , this exam was performed wearing PPE of face mask and gloves. Encounter Date: 01/19/2023 Follow up if symptoms worsen or fail to improve, for rash, cough or difficulty breathing. Signed: Melania Cheng NP 01/21/2023 9:00 PM E OUT WORKER documented in this encounter Plan of Treatment Not on file documented as of this encounter Goals Goal Patient Goal Type Associated Problems Recent Progress Patient-Stated? Author Blood Pressure < 140/90 Blood Pressure 118/82(2024 10:05 AM SHAKE OUT WORKER) No Delonte Marin MD Use sunscreen daily Lifestyle No Divya Cr, RN Frequent Skin Checks Lifestyle No Divya Cr, RN documented as of this encounter Procedures Procedure Name Priority Date/Time Associated Diagnosis Comments AMB POCT RAPID STREP A Routine 01/19/2023 Sore throat documented in this encounter Results * Group A Strep by Molecular (01/19/2023 9:10 AM SHAKE OUT WORKER) Strep A NOT DETECTED NDET 01/19/2023 2:07 PM [facility] Swab Other STRUCTURE OF ANTERIOR PORTION OF NECK / Unknown 01/19/2023 9:10 AM SHAKE OUT WORKER 01/19/2023 1:23 PM SHAKE OUT WORKER us Melania Cheng SOFTWARE TEST ENGINEER MICROBIOLOGY - GENERAL ORDERA BLES Final Result [facility] [address] [place], [place] [phone] [facility] [address] [place] [address] * AMB POCT Rapid Strep A (01/19/2023) Rapid Strep A Screen Negative Negative [facility] 01/19/2023 us Melania Cheng SOFTWARE TEST ENGINEER POINT OF CARE TEST ORDERABLES Final Result [facility] documented in this encounter Visit Diagnoses Diagnosis Sore throat- Primary Acute pharyngitis documented in this encounter Additional Health Concerns Assessment Noted Time PHQ-9 Depression Total Score: 0 10/07/20 19 10:06 AM SHAKE OUT WORKER documented as of this encounter Care Teams Staff Physical Therapist Relationship Specialty Start Date End Date Delonte Marin MD [address] [facility] [address] [place] [address] PCP - General Podiatry 08/23/15 documented as of this encounter
--- OUTSIDE RECORDS SUMMARY | 2024-11-30 10:13 | XMS_ITS | Encounter Summary ---
Author Organization [facility] [employer] [facility] [employer] Address [address] [place], [place] [id number] Care Team Providers Care Brown Stock Washer Name Role Phone Delonte Marin MD Primary Care Provider +1- [phone] Reason for Visit * Reason Comments Sore Throat X2 day Encounter Details Date Type Department Care Team ([facility] st Contact Info) Description 03/18/2023 3:00 PM CDT Office Visit [address] [phone] Jr Frederick, DO [address] [place] [id number] Acute pharyngitis, unspecified etiology (Primary Dx); Sore throat Social History Tobacco [...] Sign Reading Time Taken Comments Blood Pressure 118/64 03/18/2023 3:10 PM CDT Pulse 108 03/18/2023 3:10 PM CDT Temperature 36.3 ??C (97.3 ??F) 03/18/2023 3:10 PM CD T Respiratory Rate 18 03/18/2023 3:10 PM CDT Oxygen Saturation 99% 03/18/2023 3:10 PM CDT Inhaled Oxygen Concentration - - Weight 68.7 kg (151 lb 6.4 oz) 03/18/2023 3:10 P M CDT Height 167.6 cm (5' 6 ) 03/18/2023 3:10 PM CDT Body Mass Index 24.44 03/18/2023 3:10 PM CDT documented in this encounter Progress Notes * Jr Frederick MD - 03/18/2023 3:00 PM CDT Reason for Visit: Sore Throat (X2 day) Subjective Patient ID: Michelle is a 37 y.o. female. HPI 37-year-old female, new to this physician, presented to the clinic with chief complaint of sore throat. Patient stated that she was in her usual state health until approximately 2 days ago when she had onset of a sore throat which has progressed to present. Patient denies dysphonia, dysarthria, dysphagia, otalgia, rhinorrhea, nasal congestion, cough, nausea, vomiting, change in urinary or bowel habits, rash, or any other complaint. Patient has no known contacts with streptococcal pharyngitis or influenza/COVID. Patient denied any possibility of . A complete review of systems was performed which otherwise unremarkable beyond the aforementioned. Review of Systems See above Background history Allergies Augmentin, reaction nausea/vomiting Medications Flonase nasal inhaler 2 sprays each naris daily. Environmental allergy symptoms Claritin 10 mg 1 p.o. daily as needed environmental allergy symptoms Magnesium 200 mg 1 p.o. daily Nortriptyline 10 mg 3 p.o. nightly Imitrex 100 mg 1 p.o. at onset of migraine, may repeat in 2 hours. 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 Physical Exam SHEENT negative rash, normocephalic/atraumatic, pupils equal round reactive light accommodation, EOMI, anicteric, palpebrae not pallorous OU, nasal mucosa clear bilaterally, pinna nontender to palpation bilaterally, external auditory canals clear bilaterally, tympanic membranes clear bilaterally, posterior oropharynx clear, negative lymphadenopathy, no nuchal rigidity, thyroid within normal limits Pulmonary lungs clear to auscultation bilaterally, negative rales like or wheeze Cardiovascular heart regular rate and rhythm without murmurs rubs or gallops, pulse plus 2 out of 4times radial pulse bilaterally, cap refill less than 2 seconds lines upper extremities bilaterally,negative lower extremity edema bilaterally, negative calf tenderness to palpation bilaterally, negative pain with dorsiflexion ankles bilaterally GI abdomen benign, negative hepatosplenomegaly, negative CVA tenderness bilaterally, negative bruits, and a mass Neuro alert and oriented x4, cranial nerves II through XII intact bilaterally, tactile/proprioceptive sensation intact x4 extremities Motor moves all extremities Musculoskeletal negative obvious defect or deformity Laboratory analyses Strep screen negative Assessment & Plan Pharyngitis, acute, nonstreptococcal, most probably viral, Tylenol/ibuprofen [id number] use directed as needed for fever/discomfort, increase fluids, cough/cold agent, rest ad hanane., prednisone 20 mg 1 p.o. with food 3 times daily x5 days to decrease throat inflammation, follow-up by phone in 24 to 48 hours if unimproved or sooner as needed, diagnosis and treatment explained in detail to thepatient patient expressed understanding documented in this encounter Plan of Treatment Not on file documented as of this encounter Goals Goal Patient Goal Type Associated Problems Recent Progress Patient-Stated? Author Blood Pressure < 140/90 Blood Pressure 118/82(2024 10:05 AM BRAKER PASSENGER TRAIN) No Delonte Marin MD Use sunscreen daily Lifestyle No Divya Cr, RN Frequent Skin Checks Lifestyle No Divya Cr RN documented as of this encounter Procedures Procedure Name Priority Date/Time Associated Diagnosis Comments AMB POCT RAPID STREP A Routine 03/18/2023 Sore throat documented in this encounter Results * AMB POCT Rapid Strep A (03/18/2023) Rapid Strep A Screen Negative Negative [facility] 03/18/2023 Jr Frederick DO POINT OF CARE TEST ORDERABLE S Final Result Performing Organization Address City/State/[facility] Co de Phone Number [facility] [address] [place] [phone] documented in this encounter Visit Diagnoses Diagnosis Acute pharyngitis, unspecified etiology- Primary Sore throat Acute pharyngitis documented in this encounter Additional Health Concerns Assessment Noted Time PHQ-9 Depression Total Score: 0 10/07/20 19 10:06 AM BRAKER PASSENGER TRAIN documented as of this encounter Care Teams Brown Stock Washer Relationship Specialty Start Date End Date Delonte Marin MD [address] [facility] [address] [place] [address] PCP - General Podiatry 08/23/15 documented as of this encounter
--- OUTSIDE RECORDS SUMMARY | 2024-11-30 10:13 | XMS_ITS | Encounter Summary ---
Author Organization [employer] Address [address] [place] [address] Care Team Providers Care Filterer Name Role Phone Delonte Marin MD Primary Care Provider +1- [phone] Encounter Details Date Type Department Care Team (Latest Contact Info) Description 05/28/2023 Travel Social History Tobacco Use Types Packs/Day [...] 140/90 Blood Pressure 118/82(2024 10:05 AM DIRECTOR OF FAMILY SERVICE CENTER) No Delonte Marin MD Use sunscreen daily Lifestyle No Divya Cr, RN Frequent Skin Checks Lifestyle No Divya Cr, RN documented as of this encounter Visit Diagnoses Not on filedocumented in this encounter Additional Health Concerns Assessment Noted Time PHQ-9 Depression Total Score: 0 10/07/20 19 10:06 AM DIRECTOR OF FAMILY SERVICE CENTER documented as of this encounter Care Teams Filterer Relationship Specialty Start Date End Date Delonte Marin MD [address] [facility] [address] [place] [address] PCP - General Podiatry 08/23/15 documented as of this encounter
--- OUTSIDE RECORDS SUMMARY | 2024-11-30 10:13 | XMS_ITS | Encounter Summary ---
Author Organization [employer] Address [address] [place] [address] Care Team Providers Care Hassock Maker Name Role Phone Delonte Marin MD Primary Care Provider +1- [phone] Encounter Details Date Type Department Care Team (Latest Contact Info) Description 04/09/2023 Travel Social History Tobacco Use Types Packs/Day [...] < 140/90 Blood Pressure 118/82(2024 10:05 AM TRAUMA COUNSELLOR) No Delonte Marin MD Use sunscreen daily Lifestyle No Divya Cr, RN Frequent Skin Checks Lifestyle No Divya Cr, RN documented as of this encounter Visit Diagnoses Not on filedocumented in this encounter Additional Health Concerns Assessment Noted Time PHQ-9 Depression Total Score: 0 10/07/20 19 10:06 AM TRAUMA COUNSELLOR documented as of this encounter Care Teams Hassock Maker Relationship Specialty Start Date End Date Delonte Marin MD [address] [facility] [address] [place] [address] PCP - General Podiatry 08/23/15 documented as of this encounter
--- OUTSIDE RECORDS SUMMARY | 2024-11-30 10:13 | XMS_ITS | Encounter Summary ---
Author Organization [employer] Address [address] [place], [place] [phone] Care Team Providers Care Care Manager Name Role Phone Delonte Marin MD Primary Care Provider +1- [phone] Reason for Referral * MRI/CAT Scan (Routine) - Closed Specialty Diagnoses / Procedures Referred By Tommie jara Referred To Contact Radiology Diagnoses Chronic midline low back pain, unspecified whether sciatica present Spondylolisthesis of lumbosacral region Chronic midline low back pain without sciatica Procedures MRI Lumbar Spine wo Contrast Jana Muhammad DO [address] [place] [place] [address] Phone: tel: fax: Referral ID Status Reason Start Date Expiration Date Visits Re quested Visits Authorized [id number] Closed 06/07/2023 08/08/2023 1 1 * Referral (Routine) - Closed Specialty Diagnoses / Procedures Referred By Tommie jara Referred To Contact Pain Medicine Diagnoses Chronic midline low back pain, unspecified whether sciatica present Spondylolisthesis of lumbosacral region Chronic midline low back pain without sciatica Jana Muhammad DO [address] [place] [place] [address] Phone: tel: fax: Tim Santana MD [address] [place] [address] Phone: tel: fax: Referral ID Status Reason Start Date Expiration Date V isits Requested Visits Authorized [id number] Closed Specialty Services Required 05/28/2023 11/28/2024 1 1 Reason for Visit * Reason Comments Follow-up 12 week follow up of MID LOW back pain Encounter Details Date Type Department Care Team (Late st Contact Info) Description 05/28/2023 10:30 AM CDT Office Visit [facility] [address] [place] [phone] Jana Muhammad DO [address] [place] [id number] Chronic midline low back pain, unspecified whether sciatica present (Primary Dx); Spondylolisthesis of lumbosacral region; Chronic midline low back pain without sciatica Social History Tobacco Use Types Packs/Day Years [...] * Patient Instructions* Jana Muhammad DO - 05/28/2023 10:30 AM CDT -Continue home exercise program from PT. -Order for MRI of the lumbar spine with follow-up consultation with Dr. Santana in interventional pain management. -In the meantime we discussed considering a trial of TENS, she will look on-line for a device. -Continue home modalities and/or OTC medication as needed. -Activity as tolerated with modifications as needed for comfort. -See back here as needed. documented in this encounter Progress Notes * Jana Muhammad DO - 05/28/2023 10:30 AM CDT [facility] [place] [address] SUBJECTIVE: Chief Complaint Patient presents with ??? Follow-up 12 week follow up of MID LOW back pain Michelle Gomez is a 37 y.o. female here today for a 12 week follow up of MID LOW back pain. Since her last visit she states her back pain has not changed. Michelle states she completed physical therapy,but this did not help. She states her pain is constant with sitting for long periods of time and sleeping causing increased pain. Reposition does give her some relief. Michelle states she does take OTC ibuprofen for pain, which does help some. MEDICATION: [...] per day., Disp: 9 tablet, Rfl: 5 Family [...] tunnel release./Justin ??? Foot surgery Left bunionectomy Past Medical [...] BMI. Physical Exam Intake note reviewed. Constitutional- well-developed, well-nourished, and in no distress. Mental status- alert and cooperative. Psych- mood and affect appropriate. Head, Face- normocephalic, atraumatic[place] [address] DIAGNOSTIC IMAGING Name: MICHELLE GOMEZ Ordering Phys: SHARMILA JANA L Date of : 1985 Gender: F Accession Number: [id number] EXAM DESCRIPTION: XR LUMBOSACRAL SPINE 2 OR [...] a tile floor last year with evaluation consistent with mechanical lumbar back pain +/- left sided sciatica and possibly secondary to exacerbation of spondylolisthesis at L5-S1. Unfortunately she has not responded to conservative treatment including physical therapy intervention. See plan below. 1. Chronic midline low back pain, unspecified whether sciatica present 2. Spondylolisthesis of lumbosacral region 3. Chronic midline low back pain without sciatica PLAN: -Pertinent imaging reviewed and discussed in the office today. -Continue home exercise program from PT. -Order for MRI of the lumbar spine with follow-up consultation with Dr. Santana in interventional pain management. -In the meantime we discussed considering a trial of TENS, she will look on-line for a device. -Continue home modalities and/or OTC medication as needed. -Activity as tolerated with modifications as needed for comfort. -See back here as needed. No follow-ups on file. Medications ordered this visit: Requested Prescriptions No prescriptions requested or ordered in this encounter Other Orders placed this visit: No orders of the defined types were placed in this encounter. There are no Patient Instructions on file for this visit. EDY Valerio This document was dictated using [employer]; engine installer variances may occur. documented in this encounter [...] < 140/90 Blood Pressure 118/82(2024 10:05 AM KEY SANDER) No Delonte Marin MD Use sunscreen daily Lifestyle No Divya Cr, RN Frequent Skin Checks Lifestyle No Divya Cr, RN documented as of this encounter Results * MRI Lumbar Spine wo Contrast (06/17/2023 11:41 AM CDT) Anatomical Region Laterality Modality T-spine, L-spine, Pelvis Magneti c Resonance 06/17/2023 11:4 1 AM CDT Narrative 06/17/2023 1:26 PM CDT [address] ??[address] DIAGNOSTIC IMAGING Name: MICHELLE GOMEZ Fabi ??Ordering Phys: JANA MUHAMMAD Date of : 1985 ?Gender: F ??Accession Number: [id number] EXAM DESCRIPTION: MRI LUMBAR SPINE WO CONTRAST [...] Procedure Note Kathy Fu MD - 06/17/[address] [address] DIAGNOSTIC IMAGING Name: MICHELLE GOMEZ Ordering Phys: JANA MUHAMMAD Date of : 1985 Gender: F Accession Number: [id number] EXAM DESCRIPTION: MRI LUMBAR SPINE WO CONTRAST [...] region Acquired spondylolisthesis Chronic midline low back pain, unspecified whether sciatica present Spondylolisthesis of lumbosacral region Acquired spondylolisthesis documented in this encounter Additional Health Concerns Assessment Noted Time PHQ-9 Depression Total Score: 0 10/07/20 19 10:06 AM KEY SANDER documented as of this encounter Care Teams Care Manager Relationship Specialty Start Date End Date Delonte Marin MD [address] [facility] [address] [place] [address] PCP - General Podiatry 08/23/15 documented as of this encounter
--- OUTSIDE RECORDS SUMMARY | 2024-11-30 10:13 | XMS_ITS | Encounter Summary ---
Author Organization [employer] Address [address] [place] [address] Care Team Providers Care Aniline Press Worker Name Role Phone Delonte Marin MD Primary Care Provider +1- [phone] Reason for Visit * Reason Comments Fever Sore throat congesti on Encounter Details Date Type Department Care Team ([facility] st Contact Info) Description 11/08/2022 3:10 PM DIRECTOR DIVERSITY Office Visit [facility] [address] [place] [address] [address] [place] [address] [place]én [place] [address] [place] [address] [address] [place] [address] Fever, unspecified fever cause (Primary Dx); Acute viral syndrome Social History Tobacco Use Types Packs/Day Years [...] Sign Reading Time Taken Comments Blood Pressure 136/72 11/08/2022 3:14 PM DIRECTOR DIVERSITY Pulse 109 11/08/2022 3:14 PM DIRECTOR DIVERSITY Temperature 36.3 ??C (97.3 ??F) 11/08/2022 3:14 PM CS T Respiratory Rate - - Oxygen Saturation 99% 11/08/2022 3:14 PM DIRECTOR DIVERSITY Inhaled Oxygen Concentration - - Weight 67.1 kg (148 lb) 11/08/2022 3:14 PM DIRECTOR DIVERSITY Height 167.6 cm (5' 6 ) 11/08/2022 3:14 PM DIRECTOR DIVERSITY Body Mass Index 23.89 11/08/2022 3:14 PM DIRECTOR DIVERSITY documented in this encounter Progress Notes * Belén Gotti, DO - 11/08/2022 3:10 PM CST Chief Complaint Chief Complaint Patient presents with ??? Fever Sore throat congestion History of Present Illness 37 y.o. female presents for uri sx. All family members have tested positive for influenza and strep. She is wondering if she has the same. Medications Current Outpatient Medications: ??? fluticasone NASAL (FLONASE) [...] Rfl: ??? nortriptyline (PAMELOR) 10 MG capsule, Take 3 (three) capsules by mouth nightly., Disp: 90 capsule, Rfl: 1 ??? SUMAtriptan succinate (IMITREX) 100 MG tablet, Take 1 tablet by mouth as needed for Migraine. MAX 2 per day., Disp: 9 tablet, Rfl: 5 ??? tazarotene (AVAGE) 0.1 % cream, Apply to the hands daily., Disp: 60 g, Rfl: 2 Review of Systems Constitutional: Positive for activity change and fatigue. Negative for fever. HENT: Positive for rhinorrhea and sore throat. Respiratory: Negative for cough, choking, chest tightness and shortness of breath. Cardiovascular: Negative for chest pain, palpitations and leg swelling. Gastrointestinal: Negative for abdominal distention, constipation, diarrhea, nausea and vomiting. Endocrine: Negative for cold intolerance. Genitourinary: Negative. Musculoskeletal: Positive for myalgias. Skin: Negative. Neurological: Negative. Hematological: Negative. Psychiatric/Behavioral: Negative. Physical Exam- Vital signs reviewed and are stable BP 136/72 Pulse 109 Temp 36.3 ??C (97.3 ??F) Ht 167.6 cm (5' 6 ) Wt 67.1 kg (148 lb) JeV409% BMI 23.89 kg/m?? 1.77 meters squared Physical Exam Vitals and nursing note reviewed. Constitutional: Appearance: She is well-developed and well-nourished. HENT: Head: Normocephalic and atraumatic. Nose: No congestion or rhinorrhea. Mouth/Throat: Mouth: Mucous membranes are moist. Pharynx: Oropharynx is clear. No oropharyngeal exudate or posterior oropharyngeal erythema. Eyes: Pupils: Pupils are equal, round, and reactive to light. Neck: Vascular: No JVD. Cardiovascular: Rate and Rhythm: Normal rate and regular rhythm. Heart sounds: Normal heart sounds. Pulmonary: Effort: Pulmonary effort is normal. No respiratory distress. Breath sounds: Normal breath sounds. No wheezing or rales. Chest: Chest wall: No tenderness. Abdominal: General: Bowel sounds are normal. Musculoskeletal: General: No tenderness, deformity or edema. Cervical back: Normal range of motion. Skin: General: Skin is warm and dry. Neurological: General: No focal deficit present. Mental Status: She is alert and oriented to person, place, and time. Psychiatric: Mood and Affect: Mood and affect normal. Labs & Imaging No visits with results within 1 Month(s) from this visit. Latest known visit with results is: Hospital Outpatient Visit on 07/19/2022 Component Date Value Ref Range Status ??? Specimen Description 07/19/2022 THROAT Final ??? Special Requests 07/19/2022 NONE Final ??? Culture Results 07/19/2022 Final Value:FEW NORMAL UPPER RESPIRATORY MICROBIOTA Imaging Results None Assessment & Plan Michelle was seen today for fever. Diagnoses and all orders for this visit: Fever, unspecified fever cause - AMB POCT Rapid Strep A - POCT Influenza A/B Acute viral syndrome pt is positive for influenza A . She was informed at the visit- Supportive care Disclaimer: Note: To increase efficiency, your provider [...] current complaints and physical condition as appropriate RTC months CTOR DIVERSITY documented in this encounter Plan of Treatment Not on file documented as of this encounter Goals Goal Patient Goal Type Associated Problems Recent Progress Patient-Stated? Author Blood Pressure < 140/90 Blood Pressure 118/82(2024 10:05 AM DIRECTOR DIVERSITY) No Delonte Marin MD Use sunscreen daily Lifestyle No Divya Cr RN Frequent Skin Checks Lifestyle No Divya Cr RN documented as of this encounter Procedures Procedure Name Priority Date/Time Associated Diagnosis Comments AMB POCT RAPID STREP A Routine 11/08/2022 Fever, unspecified fever cause POCT INFLUENZA A/B Routine 11/08/2022 Fever, unspecified fever cause documented in this encounter Results * (ABNORMAL) POCT Influenza A/B (11/08/2022) Rapid Influenza A Ag Positive(A) Negative, Indeterminate [facility] POCTS Rapid Influenza B Ag Negative Negative, Indeterminate [facility] POCTS 11/08/2022 Belén Gotti DO POINT OF CARE TEST ORDERABLES Edited Result - Final [facility] POCTS * AMB POCT Rapid Strep A (11/08/2022) Rapid Strep A Screen Negative Negative [facility] POCTS 11/08/2022 Belén Gotti DO POINT OF CARE TEST ORDERABLES Final Result [facility] POCTS documented in this encounter Visit Diagnoses Diagnosis Fever, unspecified fever cause- Primary Acute viral syndrome documented in this encounter Additional Health Concerns Assessment Noted Time PHQ-9 Depression Total Score: 0 10/07/20 19 10:06 AM DIRECTOR DIVERSITY documented as of this encounter Care Teams Aniline Press Worker Relationship Specialty Start Date End Date Delonte Marin MD [address] [facility] [address] [place] [address] PCP - General Podiatry 08/23/15 documented as of this encounter
--- OUTSIDE RECORDS SUMMARY | 2024-11-30 10:13 | XMS_ITS | Encounter Summary ---
Author Organization [employer] Address [address] [place], [place] [address] Care Team Providers Care Psychologist Research Assistant Name Role Phone Delonte Marin MD Primary Care Provider +1- [phone] Reason for Visit * Reason Comments Back Pain Encounter Details Date Type Department Care Team (Latest Contact Info) Description 02/26/2023 10:50 AM CDT Clinical Support [facility] [address] [place] [address] Jana Muhammad, DO [address] [place] [address] Antonia Painter, RTR [address] [place] [address] Chronic midline low back pain without sciatica; Spondylolisthesis of lumbosacral region Social History Tobacco [...] < 140/90 Blood Pressure 118/82(2024 10:05 AM HEAD OF PRODUCT) No Delonte Marin MD Use sunscreen daily Lifestyle No Divya Cr, RN Frequent Skin Checks Lifestyle No Divya Cr, RN documented as of this encounter Procedures Procedure Name Priority Date/Time Associated Diagnosis Comments XR LUMBOSACRAL SPINE MIN 4 VIEWS Routine 02/26/2023 10:58 AM CDT Chronic midline low back pain without sciatica Spondylolisthesis of lumbosacral region documented in this encounter Results * XR Lumbosacral Spine Min 4 Views (02/26/2023 10:58 AM CDT) Anatomical Region Laterality Modality T-spine, L-spine, Pelvis Compute d Radiography 02/26/2023 10:5 8 AM CDT Narrative 02/26/2023 8:10 PM CDT [address] ??[address] DIAGNOSTIC IMAGING Name: MICHELLE GOMEZ ??Ordering Phys: JANA MUHAMMAD Date of : 1985 ?Gender: F ??Accession Number: [id number] EXAM DESCRIPTION: XR LUMBOSACRAL SPINE MIN 4 [...] Procedure Note Jaswinder Spears MD - 02/26/[address] [address] DIAGNOSTIC IMAGING Name: MICHELLE GOMEZ Ordering Phys: JANA MUHAMMAD Date of : 1985 Gender: F Accession Number: [id number] EXAM DESCRIPTION: XR LUMBOSACRAL SPINE MIN 4 [...] Visit Diagnoses Diagnosis Chronic midline low back pain without sciatica Spondylolisthesis of lumbosacral region Acquired spondylolisthesis documented in this encounter Additional Health Concerns Assessment Noted Time PHQ-9 Depression Total Score: 0 10/07/20 19 10:06 AM HEAD OF PRODUCT documented as of this encounter Care Teams Psychologist Research Assistant Relationship Specialty Start Date End Date Delonte Marin MD [address] [facility] [address] [place] [address] PCP - General Podiatry 08/23/15 documented as of this encounter
--- OUTSIDE RECORDS SUMMARY | 2024-11-30 10:13 | XMS_ITS | Encounter Summary ---
Author Organization [employer] Address [address] [place] [address] Care Team Providers Care Design Technician Name Role Phone Delonte Marin MD Primary Care Provider +1- [phone] Reason for Visit * Reason Comments Cosmetic Encounter Details Date Type Department Care Team (Late st Contact Info) Description 04/09/2023 10:00 AM CDT Treatment [facility] Dermatology [address] [place] [address] Tiffany Mobley MA [address] [place] [address] Social History Tobacco Use Types [...] Progress Notes * Tiffany Mobley MA - 04/09/2023 10:00 AM CDT Images from the original note were not included. Here for TCA 20% Peel to the hands for flat warts.. Area degreased using Peel prep solution. Peel solution applied per protocol. Patient tolerated well. Skin rinsed with Peel neutralizer and cool water numerous passes until patient reports that skin is no longer warm. Applied Skinceuticals Emollience and Tone Smart SPF 75 . Post instructions reviewed, patient verbalized understanding. RTC in 4 weeks or as needed. $150 ENemes LE Recommended Peels and Lumecca during fall/winter months. documented in this encounter Plan of Treatment Not on file documented as of this encounter Goals Goal Patient Goal Type Associated Problems Recent Progress Patient-Stated? Author Blood Pressure < 140/90 Blood Pressure 118/82(2024 10:05 AM ELEMENTARY SCHOOL LIBRARIAN) No Delonte Marin MD Use sunscreen daily Lifestyle No Divya Cr, RN Frequent Skin Checks Lifestyle No Divya Cr, RN documented as of this encounter Visit Diagnoses Not on filedocumented in this encounter Additional Health Concerns Assessment Noted Time PHQ-9 Depression Total Score: 0 10/07/20 19 10:06 AM ELEMENTARY SCHOOL LIBRARIAN documented as of this encounter Care Teams Design Technician Relationship Specialty Start Date End Date Delonte Marin MD [address] [facility] [address] [place] [address] PCP - General Podiatry 08/23/15 documented as of this encounter
--- OUTSIDE RECORDS SUMMARY | 2024-11-30 10:14 | XMS_ITS | Encounter Summary ---
Author Organization [employer] Address [address] [place] [address] Care Team Providers Care Agriculture Instructor Name Role Phone Delonte Marin MD Primary Care Provider +1- [phone] Reason for Visit * Reason Comments Cosmetic Encounter Details Date Type Department Care Team (Late st Contact Info) Description 05/31/2022 10:15 AM CDT Treatment [facility] Dermatology [address] [place] [address] Tiffany Mobley MA [address] [place] [address] Social History Tobacco Use Types [...] Progress Notes * Tiffany Mobley MA - 05/31/2022 10:15 AM CDT Pt here for hair reduction to Inner thigh and underarms . Skin type 2. Procedure discussed with patient. Consent signed. Skin cleansed with alcohol. Clear ultrasound gel applied to treatment area. Settings 25mj, short pulse. Patient tolerated well. Post procedure instructions given to patient and patient verbalized understanding. RTC in 4-6 weeks or prn. $100 inner thigh and $100 for underarms. ENemes LE documented in this encounter Plan of Treatment Not on file documented as of this encounter Goals Goal Patient Goal Type Associated Problems Recent Progress Patient-Stated? Author Blood Pressure < 140/90 Blood Pressure 118/82(2024 10:05 AM CONGRESSIONAL DISTRICT AIDE) No Delonte Marin MD Use sunscreen daily Lifestyle No Divya Cr RN Frequent Skin Checks Lifestyle No Divya Cr RN documented as of this encounter Visit Diagnoses Not on filedocumented in this encounter Additional Health Concerns Assessment Noted Time PHQ-9 Depression Total Score: 0 10/07/20 19 10:06 AM CONGRESSIONAL DISTRICT AIDE documented as of this encounter Care Teams Agriculture Instructor Relationship Specialty Start Date End Date Delonte Marin MD [address] [facility] [address] [place] [address] PCP - General Podiatry 08/23/15 documented as of this encounter
--- OUTSIDE RECORDS SUMMARY | 2024-11-30 10:14 | XMS_ITS | Encounter Summary ---
Author Organization [employer] Address [address] [place], [place] [address] Care Team Providers Care Hydroelectric Plant Electrical Engineer Name Role Phone Delonte Marin MD Primary Care Provider +1- [phone] Reason for Visit * Reason Onset Date Comments Lab Result F/U 07/24/2022 Encounter Details Date Type Department Care Team (Late st Contact Info) Description 07/24/2022 Telephone [place] [id number] [facility] [address] [place] [address] Christine Henderson LPN [address] [facility] [address] [place] [address] Lab Result F/U Social History Tobacco Use Types Packs/Day Years [...] Telephone Encounter - Christine Henderson LPN - 07/24/2022 10:18 AM CDT Patient notified of results, feeling much better. * Telephone Encounter - Christine Henderson LPN - 07/24/2022 10:17 AM CDT ----- Message from Delonte Marin MD sent at 07/24/2022 8:07 AM CDT ----- Please contact patient. Normal cony. How is she? documented in this encounter Plan of Treatment Not on file documented as of this encounter Goals Goal Patient Goal Type Associated Problems Recent Progress Patient-Stated? Author Blood Pressure < 140/90 Blood Pressure 118/82(2024 10:05 AM CIRCLE SAW OPERATOR) No Delonte Marin MD Use sunscreen daily Lifestyle No Divya Cr, RN Frequent Skin Checks Lifestyle No Divya Cr, RN documented as of this encounter Visit Diagnoses Not on filedocumented in this encounter Additional Health Concerns Assessment Noted Time PHQ-9 Depression Total Score: 0 10/07/20 19 10:06 AM CIRCLE SAW OPERATOR documented as of this encounter Care Teams Hydroelectric Plant Electrical Engineer Relationship Specialty Start Date End Date Delonte Marin MD [address] [facility] [address] [place] [address] PCP - General Podiatry 08/23/15 documented as of this encounter
--- OUTSIDE RECORDS SUMMARY | 2024-11-30 10:14 | XMS_ITS | Encounter Summary ---
Author Organization [employer] Address [address] [place] [address] Care Team Providers Care Recruitment Coordinator Name Role Phone Delonte Marin MD Primary Care Provider +1- [phone] Encounter Details Date Type Department Care Team (Latest Contact Info) Description 02/26/2022 1:57 PM CDT - 02/26/2022 11:59 PM CDT Hospital Encounter [facility] [address] [place] [id number] Acute cystitis without hematuria; Perineal irritation in female Discharge Disposition: Home - Discharge to Home [...] this encounter Medications at Time of Discharge cephALEXin (KEFLEX) 500 MG capsule Take 1 (one) capsule by mouth 2 (two) times daily for 7 days. 14 capsule 02/26/2022 2 FLUoxetine (PROZAC) 20 MG capsuleIndication s:Anxiety Take 1 (one) capsule by mouth daily. 30 capsule 2 02/05/2022 2 magnesium 200 MG TABS tablet Take 1 (one) tablet by mouth daily. 4 nortriptyline (PAMELOR) 10 MG capsuleIndication s:Chronic migraine without aura without status migrainosus, not intractable Take 3 (three) capsules by mouth nightly. 270 capsule 3 11/28/2021 2 SUMAtriptan succinate (IMITREX) 100 MG tabletIndications :Migraine without aura and without status migrainosus, not intractable Take 1 tablet by mouth as needed for Migraine. MAX 2 per day. 9 tablet 5 01/12/2021 3 tazarotene (AVAGE) 0.1 % creamIndications: Flat wart Apply nightly to the hands. 60 g 1 02/09/2022 2 documented as of this encounter Plan of Treatment Not on file documented as of this encounter Goals Goal Patient Goal Type Associated Problems Recent Progress Patient-Stated? Author Blood Pressure < 140/90 Blood Pressure 118/82(2024 10:05 AM TOOL POLISHING MACHINE OPERATOR) No Delonte Marin MD Use sunscreen daily Lifestyle No Divya Cr RN Frequent Skin Checks Lifestyle No Divya Cr RN documented as of this encounter Procedures Procedure Name Priority Date/Time Associated Diagnosis Comments VAGINITIS PANEL Routine 02/26/2022 1:57 PM CDT Acute cystitis without hematuria Perineal irritation in female documented in this encounter Results * Vaginitis Panel (02/26/2022 1:57 PM CDT) Trichomonas NEG NEG 02/27/2022 8:58 PM CDT [facility] Gardnerella vaginalis NEG NEG 02/27/2022 8:58 PM CDT [facility] Bri Species NEG NEG 2 8:58 PM CDT [facility]NOTE 3] [place] Comment: ? METHOD: ?? NUCLEIC ACID HYBRIDIZATION MIXED INFECTIONS MAY OCCUR. ??THEREFORE A TEST INDICATING THE PRESENCE OF G. VAGINALIS, BRI SP AND/OR T.VAGINALIS DOES NOT RULE OUT THE PRESENCE OF OTHER ORGANISMS ---- ?? [facility]ING PERFORMED AT [facility], [facility] [place] [address] Performed at [facility], [address] [place] [address], ([phone], unless otherwise noted. Swab Other VAGINAL STRUCTURE / Unknown 02/26/2022 1:57 PM CDT 02/26/2022 5:02 PM CDT J[facility] - GENERAL ORDERABLES Final Result [facility] [address] [facility] [address] [place], [place] [phone] [facility] [address] [place] [address] documented in this encounter Visit Diagnoses Diagnosis Acute cystitis without hematuria Acute cystitis Perineal irritation in female Unspecified disorder of skin and subcutaneous tissue documented in this encounter Additional Health Concerns Assessment Noted Time PHQ-9 Depression Total Score: 0 10/07/20 19 10:06 AM TOOL POLISHING MACHINE OPERATOR documented as of this encounter Care Teams Recruitment Coordinator Relationship Specialty Start Date End Date Delonte Marin MD [address] [facility] [address] [place], [place] [address] PCP - General Podiatry 08/23/15 documented as of this encounter
--- OUTSIDE RECORDS SUMMARY | 2024-11-30 10:14 | XMS_ITS | Encounter Summary ---
Author Organization [employer] Address [address] [place] [address] Care Team Providers Care Curriculum Specialist Name Role Phone Delonte Marin MD Primary Care Provider +1- [phone] Reason for Visit * Reason Onset Date Comments X-ray results 09/20/2022 Encounter Details Date Type Department Care Team ([facility] st Contact Info) Description 09/20/2022 Telephone [facility] - Count Includes [facility] Care [address] [place] [address] [address] [place] [address] [place] [address] [place] [address] [address] [place] [address] X-ray results Social History Tobacco Use Types Packs/Day Years [...] encounter Miscellaneous Notes * Telephone Encounter - Jaz Elizabeth PA - 09/20/2022 4:21 PM CDT Patient was notified of her x-ray results and given home care instructions. documented in this encounter Plan of Treatment [...] documented as of this encounter Care Teams Curriculum Specialist Relationship Specialty Start Date End Date Delonte Marin MD [address] [facility] [address] [place] [address] PCP - General Podiatry 08/23/15 documented as of this encounter
--- OUTSIDE RECORDS SUMMARY | 2024-11-30 10:14 | XMS_ITS | Encounter Summary ---
Author Organization [facility] Address [address] [place] [address] Care Team Providers Care Aircraft Systems Technician Name Role Phone Delonte Marin MD Primary Care Provider +1- [phone] Reason for Visit * Reason Comments Urination Complaints Encounter Details Date Type Department Care Team ([facility] st Contact Info) Description 02/26/2022 1:30 PM CDT Office Visit [facility] Care [address] [place] [address] [address] [place] [address] [place] [address] [place] [address] [address] [place] [address] Acute cystitis without hematuria (Primary Dx); Perineal irritation in female Social History Tobacco Use Types Packs/Day Years [...] Sign Reading Time Taken Comments Blood Pressure 138/94 02/26/2022 1:48 PM CDT Pulse 94 02/26/2022 1:48 PM CDT Temperature 36.8 ??C (98.2 ??F) 02/26/2022 1:48 PM CD T Respiratory Rate 20 02/26/2022 1:48 PM CDT Oxygen Saturation 99% 02/26/2022 1:48 PM CDT Inhaled Oxygen Concentration - - Weight 70.3 kg (155 lb) 02/26/2022 1:48 PM CDT Height 167.6 cm (5' 6 ) 02/26/2022 1:48 PM CDT Body Mass Index 25.02 02/26/2022 1:48 PM CDT documented in this encounter Patient Instructions * Patient Instructions* Jaz Elizabeth PA - 02/26/2022 1:56 PM CDT Increase your fluid intake Take medication as directed until completed We will notify you of the test results once we receive them Take Tylenol 500 mg and ibuprofen 600 mg every 6 hours as needed for pain and/or fevers Follow-up with your provider as needed If you develop fevers, vomiting, abdominal pain or any worsening or concerning symptoms go directlyto the emergency room Return to the clinic as needed * Attachments The following attachments cannot be sent through Care Everywhere. * UTI (Urinary Tract Infection): Female ([place]) * Skin Condition: Antibiotics ([place]) documented in this encounter Progress Notes * Jaz Elizabeth PA - 02/26/2022 1:30 PM CDT [address] [facility] [address] Dept: [phone] Dept Loc: [phone] Loc Date: 02/26/2022 Name: Michelle Gomez : 1985 PCP: Delonte Marin MD Subjective: Patient ID and HPI: Michelle Goemz is a pleasant 36 y.o. female, who presents with a complaint of pain with urination. She states it feels as if there is a spot by the ureter that is irritated. She has checked with the mirror and has not seen anything. She states there is mild redness but no lesions. She denies any vaginal discharge. She does have an appointment with Chloe tomorrow. Patient is refusing the need for vaginal exam at this time. Allergy Information as of 02/26/22 AMOXICILLIN-POT CLAVULANATE Noted Status Severity Type Reaction 12/24/19 0921 Janeen Dickson, RN 12/24/19 Active Medium Side Effect Nausea And Vomiting Current Outpatient Medications on File Prior to Visit Medication Sig Dispense Refill ??? magnesium 200 MG TABS tablet Take 200 mg by mouth daily. ??? nortriptyline (PAMELOR) 10 MG capsule Take 3 (three) capsules by mouth nightly. 270 capsule 3 ??? SUMAtriptan succinate (IMITREX) 100 MG tablet Take 1 tablet by mouth as needed for Migraine. MAX 2 per day. 9 tablet 5 ??? tazarotene (AVAGE) 0.1 % cream Apply nightly to the hands. 60 g 1 ??? FLUoxetine (PROZAC) 20 MG capsule Take 1 (one) capsule by mouth daily. 30 capsule 2 No current facility-administered medications on file prior [...] release Right 10/24/2015 Right hand carpal tunnel release./[place] ??? Foot surgery Left bunionectomy Review of Systems Constitutional: Negative. HENT: Negative. Respiratory: Negative. Gastrointestinal: Negative. Genitourinary: Positive for dysuria. Negative for flank pain, frequency, hematuria and urgency. Musculoskeletal: Negative. Skin: Negative. Neurological: Negative. Psychiatric/Behavioral: Negative. Objective: Blood pressure (!) 138/94, pulse 94, temperature 36.8 ??C (98.2 ??F), temperature source Temporal, resp. rate 20, height 1.676 m (5' 6 ), weight 70.3 kg (155 lb), SpO2 99 %. Physical Exam Vitals and nursing note reviewed. Constitutional: General: She is not in acute distress. Appearance: Normal appearance. She is normal weight. She is not ill-appearing or toxic-appearing. HENT: Head: Normocephalic and atraumatic. Mouth/Throat: Mouth: Mucous membranes are moist. Pharynx: Oropharynx is clear. Cardiovascular: Rate and Rhythm: Normal rate and regular rhythm. Heart sounds: Normal heart sounds. Pulmonary: Effort: Pulmonary effort is normal. Breath sounds: Normal breath sounds. Musculoskeletal: General: Normal range of motion. Cervical back: Normal range of motion and neck supple. Skin: General: Skin is warm and dry. Neurological: Mental Status: She is alert. Assessment/Orders: Diagnoses and all orders for this visit: Acute cystitis without hematuria - POCT urine qual dipstick chemistries - Vaginitis Panel; Future Perineal irritation in female - Vaginitis Panel; Future Other orders - cephALEXin (KEFLEX) 500 MG capsule; Take 1 (one) capsule by mouth 2 (two) times daily for 7 days. Results for orders placed or performed in visit on 02/26/22 POCT urine qual dipstick chemistries Collection Time: 02/26/22 12:00 AM Result Value Ref Range Color, UA yellow colorless, yellow Clarity or appearance, UA clear clear Glucose, UA negative negative mg/dL Bilirubin, UA negative negative, trace, high (4+) Ketones, UA small (1+) (A) negative, trace, high (4+) Specific [place],UA POC 1.020 1.003 - 1.029 Blood, UA negative negative pH, UA POC 6 5.0 - 8.5 Protein, UA POC negative negative mg/dL Urobilinogen, UA POC 1.10 (A) 0.20 - 1.00 [Johana'U]/dL Nitrite POC Negative Negative, Indeterminate Leukocytes, UA small (1+) (A) negative, trace, high (4+) Bilirubin, UA neg NEG Blood, UR POC neg /UL No results available. Plan: I am placing her on Keflex for a possible UTI. We are not culturing her urine at this time. I did give her the affirm swab for her to obtain a sample for. This was prior to her telling me that she had an appointment with Raghu tomorrow. She was given home care instructions with instructions to return for worsening symptoms. She questioned whether this could be a yeast infection versus a UTI. I informed her yes it could be but without being able to check it I would not know. Signed: SYLVIE Jacques disclaimer This dictation was partially electronically transcribed via Music Messenger (MM). I endeavor to checkon the accuracy of the career development engineer, but at times nonsensical statements inadvertently make it through the proofreading process. Cosigned by Belén Gotti DO at 02/26/2022 3:58 PM CDT Associated attestation - Belén Gotti DO - 02/26/2022 3:58 PM CDT I have read the documentation and agree with the PAC Treatment plan. documented in this encounter Plan of Treatment Not on file documented as of this encounter Goals Goal Patient Goal Type Associated Problems Recent Progress Patient-Stated? Author Blood Pressure < 140/90 Blood Pressure 118/82(2024 10:05 AM SPANNER OPERATOR) No Delonte Marin MD Use sunscreen daily Lifestyle No Divya Cr, SAMIA Frequent Skin Checks Lifestyle No Divya Cr, SAMIA documented as of this encounter Procedures Procedure Name Priority Date/Time Associated Diagnosis Comments POCT URINE QUALITATIVE CHEMISTRIES - AUTOMATED Routine 02/26/2022 Acute cystitis without hematuria documented in this encounter Results * Vaginitis Panel (02/26/2022 1:57 PM CDT) Trichomonas NEG NEG 02/27/2022 8:58 PM CDT [facility] Gardnerella vaginalis NEG NEG 02/27/2022 8:58 PM CDT [facility] Bri Species NEG NEG 8:58 PM CDT [facility] Comment: ? METHOD: ?? NUCLEIC ACID HYBRIDIZATION MIXED INFECTIONS MAY OCCUR. ??THEREFORE A TEST INDICATING THE PRESENCE OF G. VAGINALIS, BRI SP AND/OR T.VAGINALIS DOES NOT RULE OUT THE PRESENCE OF OTHER ORGANISMS ---- ?? TESTING PERFORMED AT [facility] [address] [place] [place] [address] Performed at [facility], [facility] [place] [address], [phone], unless otherwise noted. Swab Other VAGINAL STRUCTURE / Unknown 02/26/2022 1:57 PM CDT 02/26/2022 5:02 PM CDT Jaz [facility] - GENERAL ORDERABLES Final Result [facility] [address] [place], [place] [phone] [facility] [address] [place] [address] * (ABNORMAL) POCT urine qual dipstick chemistries (02/26/2022) Color, UA yellow colorless, yellow [facility] Clarity or appearance, UA clear clear [facility] Glucose, UA negative negative mg/dL [facility] Bilirubin, UA negative negative, trace, high (4+) [facility] Ketones, UA small (1+)(A) negative, trace, high (4+) [facility] Specific [place],UA POC 1.020 1.003 - 1.029 [facility] Blood, UA negative negative [facility] pH, UA POC 6 5.0 - 8.5 [facility] Protein, UA POC negative negative mg/dL [facility] Urobilinogen , UA POC 1.10(A) 0.20 - 1.00 [Johana'U]/dL [facility] Comment:1+ Nitrite POC Negative Negative, Indeterminate [facility] Leukocytes, UA small (1+)(A) negative, trace, high (4+) [facility] Bilirubin, UA neg NEG [facility] Blood, UR POC neg /UL [facility] Urine 02/26/2022 Jaz [facility] POINT OF CARE TEST RAIZA TUCKER Final Result [facility] documented in this encounter Visit Diagnoses Diagnosis Acute cystitis without hematuria- Primary Acute cystitis Perineal irritation in female Unspecified disorder of skin and subcutaneous tissue documented in this encounter Additional Health Concerns Assessment Noted Time PHQ-9 Depression Total Score: 0 10/07/20 19 10:06 AM SPANNER OPERATOR documented as of this encounter Care Teams Aircraft Systems Technician Relationship Specialty Start Date End Date Delonte Marin MD [address] [facility] [address] [place] [address] PCP - General Podiatry 08/23/15 documented as of this encounter
--- OUTSIDE RECORDS SUMMARY | 2024-11-30 10:14 | XMS_ITS | Encounter Summary ---
Author Organization [facility] Address [address] [place] [address] Care Team Providers Care Ruby Software Developer Name Role Phone Delonte Marin MD Primary Care Provider +1- [phone] Reason for Visit * Reason Comments Back Pain Self referral patien t: Chronic MID LOW back pain Encounter Details Date Type Department Care Team (Late st Contact Info) Description 04/09/2022 10:00 AM CDT Office Visit [facility] [address] [place] [id number] Jana Muhammad DO [address] [place] [address] Chronic midline low back pain without sciatica (Primary Dx); Spondylolisthesis of lumbosacral region Social [...] * Patient Instructions* Jana Muhammad DO - 04/09/2022 11:02 AM CDT -Check lumbar x-rays on way out of clinic today. -We will call with the x-ray findings and plan. -Order for PT +/- oral NSAIM as appropriate. documented in this encounter Progress Notes * Jana Muhammad DO - 04/09/2022 10:00 AM CDT [facility] [address] [place] [address] SUBJECTIVE: Chief Complaint Patient presents with ??? Back Pain Self referral patient: Chronic MID LOW back pain Michelle Gomez is a 36 y.o. female here today for initial evaluation chronic MID LOW back pain. Self referral patient. Michelle states around 6 months ago she slipped and fell on tile. She states shortly after that, she started having LOW back pain Since then, this pain has not changed. She states lying in bed and sitting increasing her back pain. She does take OTC Advil for pain, which does help. Please see scanned patient intake form for additional HPI details. MEDICATION: Current Outpatient Medications: ??? FLUoxetine (PROZAC) 20 MG capsule, Take 1 (one) capsule by mouth daily., Disp: 30 capsule, Rfl:2 ??? magnesium 200 MG TABS tablet, Take 200 mg by mouth daily., Disp: , Rfl: ??? nortriptyline (PAMELOR) 10 MG capsule, Take 3 (three) capsules by mouth nightly., Disp: 270 capsule, Rfl: 3 ??? SUMAtriptan succinate (IMITREX) 100 MG tablet, Take 1 tablet by mouth as needed for Migraine. MAX 2 per day., Disp: 9 tablet, Rfl: 5 ??? tazarotene (AVAGE) 0.1 % cream, Apply nightly to the hands., Disp: 60 g, Rfl: 1 Family History Problem Relation Age of Onset ??? Skin cancer Mother ??? Celiac disease Mother ??? Migraines Father ??? Diabetes Paternal Grandmother ??? Diabetes Paternal Grandfather ??? Cancer Neg Hx ??? Heart disease Neg Hx Past Surgical History: Procedure Laterality Date ??? Carpal tunnel release Left 09/12/2015 Left hand carpal tunnel release./[place] ??? Carpal tunnel release Right 10/24/2015 Right hand carpal tunnel release./[place] ??? Foot surgery Left bunionectomy Past Medical History: Diagnosis Date ??? Carpal tunnel syndrome Neck disc problems.Sees chiropractor and Celebrex ??? Cervical spondylosis 12/21/2019 ??? Migraines Saw [facility]. Uses Imitrex and nortriptyline. Less migraines since Mirena out. Immunization History Administered Date(s) Administered ??? COVID-19 (PFIZER-yoo cap) mRNA ages 12+ 07/10/2021 ??? COVID-19 (PFIZER-purple) MRNA ages 12+ 06/19/2021 ??? Tdap 06/30/2020 PROBLEM LIST: Patient Active Problem List Diagnosis ??? Seborrheic keratoses ??? Neck pain ??? Cervicocranial syndrome of cervical region ??? Cervical spondylosis ??? Visual changes ??? Ophthalmic migraine ??? Chronic fatigue ??? OCD (obsessive compulsive disorder) ??? Anxiety ??? Lumbar back pain OBJECTIVE: There were no vitals taken for this visit. There is no height or weight on file to calculate BMI. Physical Exam Right Hip Exam Range of Motion External rotation: normal Internal rotation: normal Muscle Strength Right hip normal muscle strength: Extension-5. Abduction: 5/5 Adduction: 5/5 Flexion: 4/5 Left Hip Exam Range of Motion External rotation: normal Internal rotation: normal Muscle Strength Left hip normal muscle strength: Extension-5. Adduction: 5/5 Flexion: 4/5 Comments: Single-leg extension test is positive Zhao's positive. Presents equivocal Back Exam Tenderness The patient is experiencing tenderness in the lumbar. Range of Motion The patient has normal back ROM. Muscle Strength Right Quadriceps: 5/5 Left Quadriceps: 5/5 Right Hamstrings: 5/5 Left Hamstrings: 5/5 Tests Straight leg raise right: negative Straight leg raise left: negative Reflexes Patellar: 2/4 Achilles: 2/4 Other Sensation: normal Gait: [place] [address] DIAGNOSTIC IMAGING Name: MICHELLE GOMEZ Ordering Phys: JANA MUHAMMAD Date of : 1985 Gender: F Accession Number: [id number] EXAM DESCRIPTION: XR LUMBOSACRAL SPINE 2 OR [...] Electronically signed by Javier Chaudhary M.D. ASSESSMENT: Chronic nonradicular extension-based low back pain seemingly after a slip and fall on tile onto thebuttocks. Evaluation today is consistent with mechanical back pain likely secondary to spondylolysis exacerbation and grade 1 anterolisthesis. See plan below. 1. Chronic midline low back pain without sciatica 2. Spondylolisthesis of lumbosacral region PLAN: -Pertinent imaging reviewed and discussed in the office today. -We will call with discrepancies on the final radiology report as appropriate. -Education provided along with discussion of likely diagnoses and management options and scenarios. -Check lumbar x-rays on way out of clinic today. -We will call with the x-ray findings and plan. -Order for PT +/- oral NSAIM as appropriate. -She agrees with and understands this plan. Follow up if symptoms worsen or fail to improve. Medications ordered this visit: Requested Prescriptions No prescriptions requested or ordered in this encounter Other Orders placed this visit: Orders Placed This Encounter Procedures ??? XR Lumbosacral Spine 2 or 3 Views Patient Instructions -Check lumbar x-rays on way out of clinic today. -We will call with the x-ray findings and plan. -Order for PT +/- oral NSAIM as appropriate. Jana Muhammad DO This document was dictated using Dragon; family physician variances may occur. documented in this encounter Plan of Treatment Not on file documented as of this encounter Goals Goal Patient Goal Type Associated Problems Recent Progress Patient-Stated? Author Blood Pressure < 140/90 Blood Pressure 118/82(2024 10:05 AM ROOF CEMENT AND PAINT MAKER HELPER) No Delonte Marin MD Use sunscreen daily Lifestyle No Divya Cr RN Frequent Skin Checks Lifestyle No Divya Cr RN documented as of this encounter Results * XR Lumbosacral Spine 2 or 3 Views (04/09/2022 11:06 AM CDT) Anatomical Region Laterality Modality T-spine, L-spine, Pelvis Compute d Radiography 04/09/2022 11:0 6 AM CDT Narrative 04/09/2022 11:22 AM CDT [address] ??[address] DIAGNOSTIC IMAGING Name: MICHELLE GOMEZ ??Ordering Phys: JANA MUHAMMAD Date of : 1985 ?Gender: F ??Accession Number: [id number] EXAM DESCRIPTION: XR LUMBOSACRAL SPINE 2 OR 3 VIEWS REASON FOR STUDY: Low back pain for 6 months TECHNIQUE: 3radiographic views acquired of the lumbar spine. COMPARISON: None. FINDINGS: ALIGNMENT: ??Mild anterolisthesis of L5 upon S1. ??Alignment otherwise normal. VERTEBRAE: Vertebral bodies of normal height. ??No facet arthropathy. ??There appear to be bilateral L5 pars defects. [...] M.D. Procedure Note Javier Chaudhary MD - 04/09/[address] [address] DIAGNOSTIC IMAGING Name: MICHELLE GOMEZ Ordering Phys: JANA MUHAMMAD Date of : 1985 Gender: F Accession Number: [id number] EXAM DESCRIPTION: XR LUMBOSACRAL SPINE 2 OR [...] - Electronically signed by Javier Chaudhary M.D. Jana Muhammad DO IMG DIAGNOSTIC IMAGING ORDERA BLES Final Result documented in this encounter Visit Diagnoses Diagnosis Chronic midline low back pain without sciatica- Primary Spondylolisthesis of lumbosacral region Acquired spondylolisthesis Chronic midline low back pain without sciatica documented in this encounter Additional Health Concerns Assessment Noted Time PHQ-9 Depression Total Score: 0 10/07/20 19 10:06 AM ROOF CEMENT AND PAINT MAKER HELPER documented as of this encounter Care Teams Ruby Software Developer Relationship Specialty Start Date End Date Delonte Marin MD [address] [facility] [address] [place] [address] PCP - General Podiatry 08/23/15 documented as of this encounter
--- OUTSIDE RECORDS SUMMARY | 2024-11-30 10:14 | XMS_ITS | Encounter Summary ---
Author Organization [facility] Address [address] [place] [address] Care Team Providers Care Labor Delivery Specialist Name Role Phone Delonte Marin MD Primary Care Provider +1- [phone] Reason for Visit * Reason Onset Date Comments other 04/10/2022 Encounter Details Date Type Department Care Team (Late st Contact Info) Description 04/10/2022 Telephone [facility] Orthopedics and Sports Medicine [address] [place] [address] Rose Marie Doran, [facility] [address] [place] [address] other Social History Tobacco Use [...] * Telephone Encounter - Rose Marie Doran MA - 04/10/2022 8:10 AM CDT Called to inform Michelle Muhammad states she has a pars defects/stress fracture in the lumbosacral region likely present prior to but exacerbated with her fall. ??Recommend OTC Tylenol for pain controland then PT 1-3 d/wk for 4-6 weeks with follow-up here in 8 weeks or sooner if not improving. ?? will review and discuss x-rays with her in the office at follow-up. Michelle would like to call back at a later time with a therapy choice and at that time she will make her 8 week follow up. documented in this encounter Plan of Treatment Not on file documented as of this encounter Goals Goal Patient Goal Type Associated Problems Recent Progress Patient-Stated? Author Blood Pressure < 140/90 Blood Pressure 118/82(2024 10:05 AM DELIVERY DEPARTMENT SUPERVISOR) No Delonte Marin MD Use sunscreen daily Lifestyle No Divya Cr, RN Frequent Skin Checks Lifestyle No Divya Cr, RN documented as of this encounter Visit Diagnoses Not on filedocumented in this encounter Additional Health Concerns Assessment Noted Time PHQ-9 Depression Total Score: 0 10/07/20 19 10:06 AM DELIVERY DEPARTMENT SUPERVISOR documented as of this encounter Care Teams Labor Delivery Specialist Relationship Specialty Start Date End Date Delonte Marin MD [address] [facility] [address] [place] [address] PCP - General Podiatry 08/23/15 documented as of this encounter
--- OUTSIDE RECORDS SUMMARY | 2024-11-30 10:14 | XMS_ITS | Encounter Summary ---
Author Organization [facility] Address [address] [place] [id number] Care Team Providers Care Bomb Squad Commander Name Role Phone Delonte Marin MD Primary Care Provider [phone]- [phone] Reason for Visit * Reason Comments Ankle Pain Swollen, popped abou t 1 week ago now swollen/painful at times Encounter Details Date Type Department Care Team (Late st Contact Info) Description 09/20/2022 11:00 AM CDT Office Visit [facility] Care [address] [place] [address] [address] [place] [address] [place] [address] [place] [address] [address] [place] [address] Acute left ankle pain (Primary Dx) Social History Tobacco Use Types [...] Sign Reading Time Taken Comments Blood Pressure 134/88 09/20/2022 11:11 AM CDT Pulse 94 09/20/2022 11:11 AM CDT Temperature 36.7 ??C (98.1 ??F) 09/20/2022 11:11 AM C DT Respiratory Rate - - Oxygen Saturation 99% 09/20/2022 11:11 AM CDT Inhaled Oxygen Concentration - - Weight - - Height - - Body Mass Index - - documented in this encounter Patient Instructions * Patient Instructions* Jaz Elizabeth PA - 09/20/2022 11:00 AM CDT Elevate your foot above the level of your heart Apply ice to the painful area every 2-3 hours for 20 minutes when awake Wear the Guillermo wrap during the day and remove this at night Take Tylenol 500 mg and ibuprofen 600 mg every 6 hours as needed for pain We will notify you of the x-ray results once we receive them * Attachments The following attachments cannot be sent through Care Everywhere. * Musculoskeletal Pain (Tristanian) documented in this encounter Progress Notes * Jaz Elizabeth PA - 09/20/2022 11:00 AM CDT [address] [place] [id number] Dept: [phone] Dept Loc: [phone] Loc Date: 09/20/2022 Name: Michelle Gomez : 1985 PCP: Delonte Marin MD Subjective: Patient ID and HPI: Michelle Gomez is a pleasant 37 y.o. female, who presents with a complaint of left ankle pain. She states a week ago she was going down the stairs outside and was on the last 2 stairs and felt a crunch or heard a crunch in her left ankle and it gave out and she fell. She statesthat she has had continued pain for the last week, it is worse when she ambulates and with certain movements. She denies any loss of sensation. Allergy Information as of 09/20/22 AMOXICILLIN-POT CLAVULANATE Noted Status Severity Type Reaction 12/24/19 0921 Janeen Dickson RN 02/06/20 Active Medium Side Effect Nausea And Vomiting Current Outpatient Medications on File Prior to Visit Medication Sig Dispense Refill ??? nortriptyline (PAMELOR) 10 MG capsule Take 3 (three) capsules by mouth nightly. 90 capsule 1 ??? fluticasone NASAL (FLONASE) 50 MCG/ACT nasal spray 2 (two) sprays by Nasal route daily. to eachnostril 16 g 1 ??? loratadine (CLARITIN) 10 MG tablet Take 1 (one) tablet by mouth daily as needed for Allergies. 30 tablet 0 ??? magnesium 200 MG TABS tablet Take 200 mg by mouth daily. ??? SUMAtriptan succinate (IMITREX) 100 MG tablet Take 1 tablet by mouth as needed for Migraine. MAX 2 per day. 9 tablet 5 No current facility-administered medications on file prior to visit. Past Medical History: Diagnosis Date ??? Carpal tunnel syndrome Neck disc problems.Sees chiropractor and Celebrex ??? Cervical spondylosis 12/21/2019 ??? Migraines Saw Adolph. Uses Imitrex and nortriptyline. Less migraines since Mirena out. Past Surgical History: Procedure Laterality Date ??? Carpal tunnel release Left 09/12/2015 Left hand carpal tunnel release./[place] ??? Carpal tunnel release Right 10/24/2015 Right hand carpal tunnel release./Justin ??? Foot surgery Left bunionectomy Review of Systems Constitutional: Negative for chills, fever and malaise/fatigue. HENT: Negative. Respiratory: Negative. Cardiovascular: Negative. Gastrointestinal: Negative for abdominal pain, diarrhea, nausea and vomiting. Genitourinary: Negative. Musculoskeletal: Positive for falls and joint pain. Neurological: Negative for dizziness and headaches. Objective: Blood pressure 134/88, pulse 94, temperature 36.7 ??C (98.1 ??F), SpO2 99 %. Physical Exam Vitals and nursing note reviewed. Constitutional: General: She is not in acute distress. Appearance: Normal appearance. She is normal weight. She is not ill-appearing or toxic-appearing. HENT: Head: Normocephalic and atraumatic. Cardiovascular: Rate and Rhythm: Normal rate. Pulses: Normal pulses. Pulmonary: Effort: Pulmonary effort is normal. Musculoskeletal: General: Swelling and tenderness present. Skin: General: Skin is warm and dry. Capillary Refill: Capillary refill takes less than 2 seconds. Neurological: General: No focal deficit present. Mental Status: She is alert. Assessment/Orders: Diagnoses and all orders for this visit: Acute left ankle pain - XR Ankle Min 3 Views L; Future No results available. Plan: An Guillermo wrap was applied to the ankle. She was given home care instructions with instructions to return for worsening or continued problems with her ankle. I am sending her for an x-ray to make certain that she does not have a fracture as this is on the fibula which is a nonweightbearing bone and there is a possibility that she may have a fracture there. If she does have a fracture we will have her return and we will put her into a splint and give her an order for crutches and refer her to Ortho. She did state with the Guillermo wrap that it felt better. I will notify her of the x-ray results once Ireceive them. Signed: SYLVIE Jacques disclaimer This dictation was partially electronically transcribed via [employer]. I endeavor to checkon the accuracy of the press bucker, but at times nonsensical statements inadvertently make it through the proofreading process. Cosigned by Belén Gotti DO at 09/26/2022 1:04 PM ANALYTICAL CHEMIST YTICAL CHEMIST Associated attestation - Belén Gotti DO - 09/26/2022 1:04 PM ANALYTICAL CHEMIST I have read the documentation and agree with the PAC Treatment plan. documented in this encounter Plan of Treatment Not on file documented as of this encounter Goals Goal Patient Goal Type Associated Problems Recent Progress Patient-Stated? Author Blood Pressure < 140/90 Blood Pressure 118/82(2024 10:05 AM ANALYTICAL CHEMIST) No Delonte Marin MD Use sunscreen daily Lifestyle No Divya Cr, RN Frequent Skin Checks Lifestyle No Divya Cr, RN documented as of this encounter Results * XR Ankle Min 3 Views L (09/20/2022 11:42 AM CDT) Anatomical Region Laterality Modality Leg, Ankle, Foot Computed Radiog vinicius 09/20/2022 11:0 2 AM CDT Impressions 09/20/2022 3:32 PM CDT 1. Small joint effusion. 2. No acute fracture or malalignment. THIS IS AN ELECTRONICALLY VERIFIED FINAL REPORT 09/20/2022 3:29 PM - Electronically signed by Kathy Fu M.D. Narrative 09/20/2022 3:[address] PM [address]T [address] [place] [address] DIAGNOSTIC IMAGING Name: MICHELLE GOMEZ ??Ordering Phys: JAZ ELIZABETH Date of : 1985 ?Gender: F ??Accession Number: [id number] EXAM DESCRIPTION: XR ANKLE MIN 3 VIEWSCILCDI REASON FOR STUDY: Left ankle pain after giving out. COMPARISON: No prior TECHNIQUE: Left ankle three views FINDINGS: Alignment of the left ankle is within normal limits. ??There is no intra-articular body. ??There is no fracture or bone destruction. ?? There is suggestion of a small joint effusion. ??Soft tissues are unremarkable. There postsurgical changes in the 1st metatarsal. Procedure Note Kathy Fu MD - 09/20/[address] [place] [address] DIAGNOSTIC IMAGING Name: GOMEZMICHELLE Ordering Phys: JAZ ELIZABETH Date of : 1985 Gender: F Accession Number: [id number] EXAM DESCRIPTION: XR ANKLE MIN 3 VIEWSCILCDI REASON FOR STUDY: Left ankle pain after giving out. COMPARISON: No prior TECHNIQUE: Left ankle three views FINDINGS: Alignment of the left ankle is within normal limits. There is no intra-articular body. There is no fracture or bone destruction. There is suggestion of a small joint effusion. Soft tissues are unremarkable. There postsurgical changes in the 1st metatarsal. IMPRESSION: 1. Small joint effusion. 2. No acute fracture or malalignment. THIS IS AN ELECTRONICALLY VERIFIED FINAL REPORT 09/20/2022 3:29 PM - Electronically signed by Kathy Fu M.D. Jaz MERCER [facility] DIAGNOSTIC IMAGING ORDERABLES Final Result documented in this encounter Visit Diagnoses Diagnosis Acute left ankle pain- Primary Acute left ankle pain documented in this encounter Additional Health Concerns Assessment Noted Time PHQ-9 Depression Total Score: 0 10/07/20 10:06 AM ANALYTICAL CHEMIST documented as of this encounter Care Teams Bomb Squad Commander Relationship Specialty Start Date End Date Delonte Marin MD [address] [facility] [address] [place] [address] PCP - General Podiatry 08/23/15 documented as of this encounter
--- OUTSIDE RECORDS SUMMARY | 2024-11-30 10:14 | XMS_ITS | Encounter Summary ---
Author Organization [employer] Address [address] [place] [address] Care Team Providers Care Chinese Herbalist Name Role Phone Delonte Marin MD Primary Care Provider [phone]- [phone] Reason for Visit * Reason Comments Bumps Patient here for elsa el consult for bumps on arm Encounter Details Date Type Department Care Team (Late st Contact Info) Description 03/15/2022 11:00 AM CDT Office Visit [facility] - Dermatology [address] [phone] Romy Reilly, [facility] [address] [facility] [address] [place] [address] Flat wart (Primary Dx); Stucco keratosis; Inflamed seborrheic keratosis Social History Tobacco Use Types Packs/Day Years [...] Reading Time Taken Comments Blood Pressure 110/84 03/15/2022 11:13 AM CDT Pulse 123 03/15/2022 11:13 AM CDT Temperature - - Respiratory Rate - - Oxygen Saturation 98% 03/15/2022 11:13 AM CDT Inhaled Oxygen Concentration - - Weight - - Height - - Body Mass Index - - documented in this encounter Patient Instructions * Patient Instructions* Lisset Flores SCRIBE - 03/15/2022 4:10 PM CDT Seborrheic Keratosis: Care Instructions Your Care Instructions Seborrheic keratoses are raised skin growths that look scaly or warty. They usually look like they were stuck onto the skin. They most often grow in groups on the back or chest and are more common inolder people. A seborrheic keratosis can be roque or dark brown. A seborrheic keratosis is not a moleand is almost always harmless. But it is still a good idea to check your skin regularly. Sometimes a seborrheic keratosis can itch. Scratching it can cause it to bleed and sometimes even scar. A seborrheic keratosis is removed only if it bothers you. The doctor will freeze it or scrape it off with a tool. The doctor can also use a laser to remove a seborrheic keratosis. Treatment usually results in normal-looking skin, but it can leave a light or dark chadd or even a scar on the skin. Follow-up care is a galvez part of your treatment and safety. Be sure to make and go to all appointments, and call your doctor if you are having problems. It's also a good idea to know your test resultsand keep a list of the medicines you take. How can you care for yourself at home? If clothing irritates your seborrheic keratosis, cover it with a bandage to prevent rubbing and bleeding. If you have a seborrheic keratosis removed, clean the area with soap and water two times a day unless your doctor gives you different instructions. Don't use hydrogen peroxide or alcohol, which can slow healing. You may cover the wound with a thin layer of petroleum jelly, such as Vaseline, and a nonstick bandage. If you see a change in a skin growth, contact your doctor. Look for: A mole that bleeds. A fast-growing mole. A scaly or crusted growth on the skin. A sore that will not heal. When should you call for help? Call your doctor now or seek immediate medical care if: You have an area of normal skin that suddenly changes in shape, size, or how it looks. Your skin is badly broken from scratching. You have signs of infection such as: Pain, warmth, or swelling in your skin. Red streaks near a wound in your skin. Pus coming from a wound in your skin. A fever not due to the flu or other illness. Watch closely for changes in your health, and be sure to contact your doctor if: You do not get better as expected. Where can you learn more? Go to the Search Medical Library option found under the Resources tab in [employer] [email or web address]. If you do not have access to [employer], you can visit [email or web address] and select [employer] from the menu on the left. Enter Z945 in the search box to learn more about Seborrheic Keratosis: Care Instructions. Not on [employer]? Go to [email or web address] and click the Sign Up Now link to request an activation code. Current as of: January 18, 2021 Content Version: 13.1 ?? [employer]. Care instructions adapted under license by your healthcare professional. This care instruction is for use with your licensed healthcare professional. If you have questions about a medical condition or this instruction, always ask your healthcare professional. [employer] disclaims any warranty or liability for your use of this information. documented in this encounter Progress Notes * Romy Reilly DNP - 03/15/2022 11:00 AM CDT Images from the original note were not included. [facility] - DERMATOLOGY [address] [place] [address] Dept: [phone] Dept Loc: [phone] Loc Provider: Romy Reilly DNP Primarydiagnosis: Flat wart [B07.8] Medications prescribed: Requested Prescriptions No prescriptions requested or ordered in this encounter CHIEF COMPLAINT: Chief Complaint Patient presents with ??? Bumps Patient here for initial consult for bumps on arm Purpose of Visit: Consultation of lesions on upper extremities Referring Provider: Self referral Primary Care Provider: Delonte Marin MD History of Present Illness: Michelle Gomez is a 36 y.o. female who is being seen for lesions located on bilateral hands and right forearm and have been present for >2 years but increasing in amount and size in the past several months. Patient admits to irritation. Michelle has a history of flat warts with prior treatment including Tazorac- failed. Seen by Vladimir Hurst and diagnosis of flat warts with treatment given with tazarotene and no improvement in sep and oct 2021. Details of documentation listed below Prior visit documentation reviewed 03/15/22 10/30/21, Juany Hurst: Michelle Gomez is a very pleasant 36 y.o. female presenting to clinic for follow up of flat warts. The patient was last seen in Dermatology 09/2021. ?? The patient is worsened.- she believes the cream has now given her a rash. Current treatment consists of tazorac nightly. Patient is tolerating the treatment poorly. Side effects of treatment include none. ?? She has a spot of concern on the left taoism ?? She tried urea cream for her feet for several weeks but didn't find that it resolved the thickened scaly skin. ?? She does also wish to address a small roque papule to the Left post auricular. Review of Systems Constitutional: Negative for chills, diaphoresis, fever, malaise/fatigue and weight loss. Musculoskeletal: Negative for back pain, falls, joint pain, myalgias and neck pain. Skin: Negative for itching and rash. Irritating flat warts vs stucco Scaling and irritation to lesion on right forearm Neurological: Negative for dizziness, weakness and headaches. Endo/Heme/Allergies: Does not bruise/bleed easily. Psychiatric/Behavioral: Negative for depression. The patient is not nervous/anxious. Blood pressure 110/84, pulse (!) 123, SpO2 98 %. Other Derm History ??? Severe/blistering sunburn? Yes ??? Current using a tanning bed? No ??? Used a tanning bed? No ??? Use sunscreen on or near daily basis? Yes ? ? Last visit to [employer] Supervisor Date & Name of MD 10/2021 Juany Hurst Past Medical History: Diagnosis Date ??? Carpal tunnel syndrome Neck disc problems.Sees chiropractor and Celebrex ??? Cervical spondylosis 12/21/2019 ??? Migraines Saw Sullivant. Uses Imitrex and nortriptyline. Less migraines since Mirena out. family history includes Celiac disease in her mother; Diabetes in her paternal grandfather and paternal grandmother; Migraines in her father; Skin cancer in her mother. Past Surgical History: Procedure Laterality Date ??? Carpal tunnel release Left 09/12/2015 Left hand carpal tunnel release./[place] ??? Carpal tunnel release Right 10/24/2015 Right hand carpal tunnel release./[place] ??? Foot surgery Left bunionectomy Social History Tobacco Use ??? Smoking status: Never Smoker ??? Smokeless tobacco: Never Used Vaping Use ??? Vaping Use: Never used Substance Use Topics ??? Alcohol use: No Alcohol/week: 0.0 standard drinks ??? Drug use: No Family History Problem Relation Age of Onset ??? Skin cancer Mother ??? Celiac disease Mother ??? Migraines Father ??? Diabetes Paternal Grandmother ??? Diabetes Paternal Grandfather ??? Cancer Neg Hx ??? Heart disease Neg Hx Current Outpatient Medications on File Prior to [...] facility-administered medications on file prior to visit. Allergies: Augmentin [amoxicillin-pot clavulanate] Physical Examination General appearance: healthy, alert and cooperative Mental Health: She is Pleasant ENT: No sinus tenderness or lymph node enlargement. Throat clear with no erythematous changes or exudate Integumentary: Michelle's Florence skin type is II Skin Exam: Head, hair, EENT, neck, chest, back, abdomen, upper extremities, digits and nails Dermascope was used during the exam. Physical Exam Upper extremities Impression and Plan: 1. Flat wart vs stucco keratosis Reviewed medical history, labs, referral note, and prior visit documentation. Educated patient on skin cancer prevention, diagnosis, treatment options, risks, and benefits. All patient questions and concerns were addressed, with patient expressing understanding. This was a 26 minute visit, with >50% spent counseling the patient. Educated on diagnosis and risk - Destruction benign lesions up to 14 ([id number]) Cryo to <14 scattered flat wart vs stucco keratosis 2. Inflamed seborrheic keratosis Sun safety to reduce damaged skin and skin cancer: Educated the patient on reducing their risk of skin damage and skin cancer by using photoprotectionwith wearing protective clothing and sunscreen such as an SPF 30+ to be worn on a daily basis. [employer] skin cancer handout was provided and reviewed, with warning signs of skin cancer discussed and prevention discussed. Tan angiomas: Education provided on the benign nature of these skin lesions. These lesions are treated for cosmesis but no treatment is required. Those cosmesis options include laser treatment, electrodesiccation of typical lesions, and excision of larger lesions. The patient was informed to continue to monitor during full skin exams and to notify me with any changes or new symptoms that developed with these lesions. Seborrheic keratoses: Education was provided on the benign nature of these skin lesions. These are often asymptomatic butcan become irritated and inflamed spontaneously or because of chafing from clothing. Treatment of these lesions are indicated for cosmetic reasons to decrease irritation or to rule out malignancy. Numerous methods of treatment are effective, but the most commonly used are cryosurgery, curettage, and excision. Repeat treatments may be necessary. Dermatofibroma: Education provided on these benign nodules that are derived from mesodermal and dermal cells. Theselesions are most likely a result of fibrous reactions to minor trauma, insect bites, viral infections, ruptured cysts, or folliculitis. Multiple nodules may be associated with an autoimmune disorder so further evaluation may need to be considered. Nevi (mole): Moles are common and education provided on normal and abnormal variations were discussed. Encouragethe patient to perform monthly skin exams to evaluate and monitor their moles and the the ABCDE criteria for melanoma was reviewed. The patients moles were examined using a dermascope with those thatneed monitoring measured and detailed on the exam. Encouraged sun safety behavior with SPF sunscreen and protected clothing/glasses/hats. Patient was encouraged to call and make a follow up appointment with any concerning mole changes. Cryotherapy to SK on right forearm Follow Up: Follow up in about 4 weeks (around 04/12/2022) for Wart vs stucco follow up. Education provided for all pathology and wound care. Romy Reilly DNP 03/15/2022 documented in this encounter Procedure Notes * Lisset Flores SCRIBE - 03/15/2022 11:00 AM CDTAssociated Order(s): Destruction benign lesions up to 14 ([id number]) Post-Procedure Diagnose(s): Flat wart; Stucco keratosis Destruction benign lesions up to 14 ([id number]) Date/Time: 03/15/2022 11:17 AM Performed by: Romy Reilly DNP Authorized by: Romy Reilly DNP [place] Protocol: Verbal consent obtained?: Yes Written consent obtained?: Yes Risks and benefits: Risks, benefits and alternatives were discussed Consent given by: Patient Patient states understanding of procedure being performed: Yes Patient's understanding of procedure matches consent: Yes Procedure consent matches procedure scheduled: Yes Patient identity confirmed: Verbally with patient Time out: Immediately prior to the procedure a time out was called (A time out verifies correct patient, procedure, equipment, support clerk and site/side marked as required.) Preparation: Preparation: Patient was prepped and draped in usual sterile fashion Anesthesia: Local anesthesia used?: No Sedation: Patient sedated: No Post-procedure: Patient tolerance: Patient tolerated the procedure well with no immediate complications Procedure Modifiers: Modifiers Needed? Yes Procedure Comments: Cryo to <14 flat warts vs stucco keratosis and SK on right forearm documented in this encounter Plan of Treatment Not on file documented as of this encounter Goals Goal Patient Goal Type Associated Problems Recent Progress Patient-Stated? Author Blood Pressure < 140/90 Blood Pressure 118/82(2024 10:05 AM TAPE MAKING MACHINE OPERATOR) No Delonte Marin MD Use sunscreen daily Lifestyle No Divya Cr, RN Frequent Skin Checks Lifestyle No Divya Cr, RN documented as of this encounter Procedures Procedure Name Priority Date/Time Associated Diagnosis Comments DESTRUCTION BENIGN LESIONS UP TO 14 Routine 03/15/2022 11:17 AM CDT Stucco keratosis Flat wart Inflamed seborrheic keratosis documented in this encounter Results * DESTRUCTION BENIGN LESIONS UP TO 14 (03/15/2022 11:17 AM CDT) Narrative [facility] - 03/15/2022 11:17 AM CDT SAMPSON Méndez ? 03/15/2022 ??5:26 PM Destruction benign lesions up to 14 ??([id number]) Date/Time: 03/15/2022 11:17 AM Performed by: Romy Reilly DNP Authorized by: Romy Reilly DNP [place] Protocol: ?Verbal consent obtained?: Yes ?Written consent obtained?: Yes ?Risks and benefits: Risks, benefits and alternatives were discussed ?Consent given by: ??Patient ??Patient states understanding of procedure being performed: Yes ?Patient's understanding of procedure matches consent: Yes ?Procedure consent matches procedure scheduled: Yes ?Patient identity confirmed: ??Verbally with patient ??Time out: Immediately prior to the procedure a time out was called ?(A time out verifies correct patient, procedure, equipment, support clerk and site/side marked as required.) Preparation: ?Preparation: Patient was prepped and draped in usual sterile fashion ?? Anesthesia: ??Local anesthesia used?: No ?? Sedation: ?Patient sedated: No ?? Post-procedure: ??Patient tolerance: ??Patient tolerated the procedure well with no immediate complications Procedure Modifiers: ??Modifiers Needed? ??Yes Procedure Comments: ?? Cryo to <14 flat warts vs stucco keratosis and SK on right forearm us Romy Reilly DNP PROCEDURE/MINOR SURGICAL RAIZA TUCKER Final Result [facility] [address] [place], [place] [phone] documented in this encounter Visit Diagnoses Diagnosis Flat wart- Primary Other specified viral warts Stucco keratosis Acquired keratoderma Inflamed seborrheic keratosis documented in this encounter Additional Health Concerns Assessment Noted Time PHQ-9 Depression Total Score: 0 10/07/20 19 10:06 AM TAPE MAKING MACHINE OPERATOR documented as of this encounter Care Teams Chinese Herbalist Relationship Specialty Start Date End Date Delonte Marin MD [address] [facility] [address] [place] [address] PCP - General Podiatry 08/23/15 documented as of this encounter
--- OUTSIDE RECORDS SUMMARY | 2024-11-30 10:14 | XMS_ITS | Encounter Summary ---
Author Organization [employer] Address [address] [place] [address] Care Team Providers Care Mfg Assoc Name Role Phone Delonte Marin MD Primary Care Provider +1- [phone] Encounter Details Date Type Department Care Team ([facility] st Contact Info) Description 02/09/2022 Orders Only [facility] Dermatology [address] [place] [address] Sailaja Bianchi LPN [address] [place] [address] Flat wart Social History Tobacco Use Types Packs/Day Years [...] < 140/90 Blood Pressure 118/82(2024 10:05 AM SENIOR CONTROLS ANALYST) No Delonte Marin MD Use sunscreen daily Lifestyle No Divya Cr, RN Frequent Skin Checks Lifestyle No Divya Cr, RN documented as of this encounter Visit Diagnoses Diagnosis Flat wart Other specified viral warts documented in this encounter Additional Health Concerns Assessment Noted Time PHQ-9 Depression Total Score: 0 10/07/20 10:06 AM SENIOR CONTROLS ANALYST documented as of this encounter Care Teams Mfg Assoc Relationship Specialty Start Date End Date Delonte Marin MD [address] [facility] [address] [place] [address] PCP - General Podiatry 08/23/15 documented as of this encounter
--- OUTSIDE RECORDS SUMMARY | 2024-11-30 10:14 | XMS_ITS | Encounter Summary ---
Author Organization [facility] Address [address] [place] [address] Care Team Providers Care Bus Trolley And Taxi Instructor Name Role Phone Delonte Marin MD Primary Care Provider +1- [phone] Encounter Details Date Type Department Care Team (Latest Contact Info) Description 09/20/2022 11:32 AM CDT - 09/20/2022 11:59 PM CDT Hospital Encounter [facility] General Radiology [address] [place] [id number] Acute left ankle pain Discharge Disposition: Home - Discharge to Home [...] capsules by mouth nightly. 90 capsule 1 08/29/2022 2 SUMAtriptan succinate (IMITREX) 100 MG tabletIndications :Migraine without aura and without status migrainosus, not intractable Take 1 tablet by mouth as needed for Migraine. MAX 2 per day. 9 tablet 5 01/12/2021 3 documented as of this encounter Plan of Treatment Not on file documented as of this encounter Goals Goal Patient Goal Type Associated Problems Recent Progress Patient-Stated? Author Blood Pressure < 140/90 Blood Pressure 118/82(2024 10:05 AM CIRCULAR RIPSAW OPERATOR) No Delonte Marin MD Use sunscreen daily Lifestyle No Divya Cr, RN Frequent Skin Checks Lifestyle No Divya Cr, RN documented as of this encounter Procedures Procedure Name Priority Date/Time Associated Diagnosis Comments XR ANKLE MIN 3 VIEWS STAT 09/20/2022 11:42 AM CDT Acute left ankle pain documented in this encounter Results * XR Ankle Min [...] Fu M.D. Narrative 09/20/2022 3:32 PM CDT [address] [place] [address] DIAGNOSTIC IMAGING Name: MICHELLE GOMEZ Fabi ??Ordering Phys: JAZ VALVERDE Date of : 1985 ?Gender: F ??Accession Number: [id number] EXAM DESCRIPTION: XR ANKLE MIN 3 VIEWSCILCDI [...] Procedure Note Kathy Fu MD - 09/20/2022 [id number] [facility] [address] [place] [address] DIAGNOSTIC IMAGING Name: MICHELLE GOMEZ Ordering Phys: JAZ VALVERDE Date of : 1985 Gender: F Accession Number: [id number] EXAM DESCRIPTION: XR ANKLE MIN 3 VIEWSCILCDI [...] signed by Kathy Fu M.D. [facility] DI[facility]NO[facility]IC [facility]AG[facility] ORDERABLES Final Result documented in this encounter Visit Diagnoses Diagnosis Acute left ankle pain documented in this encounter Additional Health Concerns Assessment Noted Time PHQ-9 Depression Total Score: 0 10/07/20 19 10:06 AM CIRCULAR RIPSAW OPERATOR documented as of this encounter Care Teams Bus Trolley And Taxi Instructor Relationship Specialty Start Date End Date Delonte Marin MD [address] [place] [address] [address] [place] [address] PCP - General Podiatry 08/23/15 documented as of this encounter
--- OUTSIDE RECORDS SUMMARY | 2024-11-30 10:14 | XMS_ITS | Encounter Summary ---
Author Organization [employer] Address [address] [place] [address] Care Team Providers Care Bun Icer Name Role Phone Delonte Marin MD Primary Care Provider [phone]- [phone] Reason for Visit * Reason Comments Wart Flat warts to hands Encounter Details Date Type Department Care Team (Late st Contact Info) Description 04/12/2022 8:15 AM CDT Office Visit [facility] - Dermatology [address] [place] [address] Romy Reilly, [facility] [address] [facility] [address] [place], [place] [address] Flat wart (Primary Dx); Stucco keratosis Social History Tobacco Use Types Packs/Day [...] Sign Reading Time Taken Comments Blood Pressure 112/72 04/12/2022 8:28 AM CDT Pulse 108 04/12/2022 8:28 AM CDT Temperature - - Respiratory Rate 18 04/12/2022 8:28 AM CDT Oxygen Saturation 98% 04/12/2022 8:28 AM CDT Inhaled Oxygen Concentration - - Weight 74.2 kg (163 lb 9.6 oz) 04/12/2022 8:28 A M CDT Height - - Body Mass Index 26.41 02/26/2022 1:48 PM CDT documented in this encounter Patient Instructions * Patient Instructions* Lisset Flores SAMPSON - 04/12/2022 8:57 AM CDT Images from the original note were not included. Daily moisturizer and multi vitamin Begin compound w/duct tape in 1 week Skin Cancer Prevention: Care Instructions Your Care Instructions Skin cancer is the abnormal growth of cells in the skin. It usually appears as a growth that changes in color, shape, or size. This can be a sore that does not heal or a change in a wart or a mole. Skin cancer is almost always curable when found early and treated. So it is important to see your doctor if you have any of these changes in your skin. Skin cancer is the most common type of cancer. It often appears on areas of the body that have beenexposed to the sun, such as the head, face, neck, back, chest, or shoulders. Follow-up care is a galvez part of your treatment and safety. Be sure to make and go to all appointments, and call your doctor if you are having problems. It's also a good idea to know your test resultsand keep a list of the medicines you take. How can you care for yourself at home? Wear a wide-brimmed hat and long sleeves and pants if you are going to be outdoors for a long time. Avoid the sun between 10 a.m. and 4 p.m., which is the peak time for UV rays. Wear sunscreen on exposed skin. Make sure to use a broad-spectrum sunscreen that has a sun protection factor (SPF) of 30 or higher. Use it every day, even when it is cloudy. Do not use tanning booths or sunlamps. Use lip balm or cream that has sun protection factor (SPF) to protect your lips from getting sunburned. Wear sunglasses that block UV rays. When should you call for help? Call your doctor now or seek immediate medical care if: You have signs of infection, such as: Increased pain, swelling, warmth, or redness. Red streaks leading from the area. Pus draining from the area. A fever. Watch closely for changes in your health, and be sure to contact your doctor if: You see a change in your skin, such as a growth or mole that: Grows bigger. This may happen very slowly. Changes color. Changes shape. Starts to bleed easily. You have swollen glands in your armpits, groin, or neck. You do not get better as expected. Where can you learn more? Go to the Search Medical Library option found under the Resources tab in [employer] [email or web address]. If you do not have access to [employer], you can visit [email or web address] and select [facility] from the menu on the left. Enter P392 in the search box to learn more about Skin Cancer Prevention: Care Instructions. Not on [employer]? Go to [email or web address] and click the Sign Up Now link to request an activation code. Current as of: July 26, 2021 Content Version: 13.1 ?? [employer]. Care instructions adapted under license by your healthcare professional. This care instruction is for use with your licensed healthcare professional. If you have questions about a medical condition or this instruction, always ask your healthcare professional. [employer] disclaims any warranty or liability for your use of this information. documented in this encounter Progress Notes * Romy Reilly DNP - 04/12/2022 8:15 AM CDT Images from the original note were not included. [facility] - DERMATOLOGY [address] [place] [address] Dept: [phone] Dept Loc: [phone] Loc Provider: Romy Reilly DNP Primarydiagnosis: Flat wart [B07.8] Medications prescribed: Requested Prescriptions No prescriptions requested or ordered in this encounter CHIEF COMPLAINT: Chief Complaint Patient presents with ??? Wart Flat warts to hands Purpose of Visit: Wart and SK follow up Referring Provider: Self referral Primary Care Provider: Delonte Marin MD History of Present Illness: Michelle Gomez is a 36 y.o. female who is being seen for a flat wart vs stucco keratosis follow up, located on bilateral forearm and hands and has been present for a few years. Patient admits to itch and irritation with minimal scaling. 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 Prior visit documentation reviewed 04/12/22 03/15/22: Michelle Gomez is a 36 y.o. female [...] oct 2021. Details of documentation listed below ?? Prior visit documentation reviewed 03/15/22 ?? 10/30/21, Juany Hurst: ?? Michelle??Jason??is a very pleasant 36 y.o.??female??presenting to clinic for follow up of flat warts. The patient was last seen in Dermatology??09/2021. ?? The patient is??worsened.- she believes the cream has now given her a rash. Current treatment consists of??tazorac??nightly. Patient is tolerating the treatment??poorly. Side effects of treatment include??none. ?? She has a spot of concern on the left roman catholic ?? She tried urea cream for her [...] and rash. Irritating flat warts vs stucco keratosis Neurological: Negative for dizziness, weakness and headaches. Endo/Heme/Allergies: Does not bruise/bleed easily. Psychiatric/Behavioral: Negative for depression. The patient is not nervous/anxious. Blood pressure 112/72, pulse 108, resp. rate 18, weight 74.2 kg (163 lb 9.6 oz), SpO2 98 %. Other Derm History ??? Severe/blistering sunburn? Yes ??? Current using a tanning bed? No ??? Used a tanning bed? No ??? Use sunscreen on or near daily basis? Yes ? ? Last visit to Dining Room Coordinator Date & Name of 10/2021 Juany Hurst Past Medical History: Diagnosis [...] release Right 10/24/2015 Right hand carpal tunnel release./[place] ??? Foot surgery Left bunionectomy Social History [...] to Visit Medication Sig Dispense Refill ??? FLUoxetine (PROZAC) 20 MG capsule Take 1 (one) capsule by mouth daily. 30 capsule 2 ??? magnesium 200 MG TABS tablet Take [...] nightly to the hands. 60 g 1 No current facility-administered medications on file prior [...] with patient expressing understanding. This was a 19 minute visit, with >50% spent counseling the patient. Continued education on diagnosis and risk Daily moisturizer and multi vitamin Begin compound w/duct tape in 1 week Discussed future yeast treatment - Destruction benign lesions 15 or more (62426) Cryotherapy to >15 lesions on bilateral hands and forearms Follow Up: Follow up in about 4 weeks (around 05/10/2022) for flat wart vs stucco keratosis follow up. Education provided for all pathology and wound care. Romy Reilly DNP 04/12/2022 Lisset Storey SCRIBE, have documented as a scribe for Romy Reilly DNP in the following sections of this encounter: HPI, ROS, Physical Exam, Assessment, Plan on 04/12/2022 at 9:31 AM. Electronic signature by rn medical surgical SAMPSON Méndez on 04/12/2022 at 9:31 AM. documented in this encounter Procedure Notes * Lisset Flores SCRIBE - 04/12/2022 8:15 AM CDTAssociated Order(s): Destruction benign lesions 15 or more ([id number]) Post-Procedure Diagnose(s): Flat wart; Stucco keratosis Destruction benign lesions 15 or more ([id number]) Date/Time: 04/12/2022 8:55 AM Performed by: Romy Reilly DNP Authorized by: Romy Reilly DNP [place] Protocol: Verbal consent obtained?: Yes Written consent [...] time out verifies correct patient, procedure, equipment, network support engineer and site/side marked as required.) Preparation: Preparation: Patient was prepped and draped in usual sterile fashion Anesthesia: Local anesthesia used?: No Sedation: Patient sedated: No Post-procedure: Patient tolerance: Patient tolerated the procedure well with no immediate complications Procedure Modifiers: Modifiers Needed? Yes Procedure Comments: Cryotherapy to >15 stucco keratosis vs flat warts documented in this encounter Plan of Treatment Not on file documented as of this encounter Goals Goal Patient Goal Type Associated Problems Recent Progress Patient-Stated? 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 - 04/12/2022 8:55 AM CDT SAMPSON Méndez ? 04/12/2022 ??5:35 PM Destruction benign lesions 15 or more ??([id number]) Date/Time: 04/12/2022 8:55 AM Performed by: Romy Reilly DNP Authorized by: Romy Reilly DNP [place] Protocol: ?Verbal consent obtained?: Yes ?Written consent [...] time out verifies correct patient, procedure, equipment, network support engineer and site/side marked as required.) Preparation: ?Preparation: Patient was prepped and draped in usual sterile fashion ?? Anesthesia: ??Local anesthesia used?: No ?? Sedation: ?Patient sedated: No ?? Post-procedure: ??Patient tolerance: ??Patient tolerated the procedure well with no immediate complications Procedure Modifiers: ??Modifiers Needed? ??Yes Procedure Comments: ?? Cryotherapy to >15 stucco keratosis vs flat warts Romy Reilly DNP PROCEDURE/MINOR SURGICAL ORDJonh TUCKER Final Result Performing Organization Address City/State/[facility] Co de Phone Number 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
--- OUTSIDE RECORDS SUMMARY | 2024-11-30 10:14 | XMS_ITS | Encounter Summary ---
Author Organization [employer] Address [address] [place] [address] Care Team Providers Care Doll Dresser Name Role Phone Delonte Marin MD Primary Care Provider +1- [phone] Reason for Visit * Reason Onset Date Comments xray results 09/20/2022 Encounter Details Date Type Department Care Team ([facility] st Contact Info) Description 09/20/2022 Telephone [facility] Care [address] [place] [address] [address] [place] [address] [place] [address] [place] [address] [address] [place] [address] xray results Social History Tobacco Use Types Packs/Day [...] Encounter - Jaz Elizabeth PA - 09/20/2022 3:14 PM CDT Patient was calling in regards to her ankle x-ray as to whether it was fractured or not. I informedher that I had not seen the report yet from the radiologist even though I had marked it as stat they have not read it. I did inform her that I did not see any break or fracture. She was informed thatit was a very bad sprain and that this can take just as long to heal as a fracture. She was informed that we will notify her if the radiologist sees anything different. She also has my [employer] andwill be watching for the x-ray results. documented in this encounter Plan of Treatment Not on file documented as of this encounter Goals Goal Patient Goal Type Associated Problems Recent Progress Patient-Stated? 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
--- OUTSIDE RECORDS SUMMARY | 2024-11-30 10:14 | XMS_ITS | Encounter Summary ---
Author Organization [employer] Address [address] [place] [address] Care Team Providers Care Wax Engraver Name Role Phone Delonte Marin MD Primary Care Provider +1- [phone] Reason for Visit * Reason Comments Sore Throat X2 days Encounter Details Date Type Department Care Team ([facility] st Contact Info) Description 07/19/2022 3:30 PM CDT Office Visit [address] [place] [address] Delonte Marin MD [address] [place] [address] [address] [place] [address] Sore throat (Primary Dx) Social [...] Sign Reading Time Taken Comments Blood Pressure 124/80 07/19/2022 3:31 PM CDT Pulse 112 07/19/2022 3:31 PM CDT Temperature 36.5 ??C (97.7 ??F) 07/19/2022 3:31 PM CD T Respiratory Rate - - Oxygen Saturation 97% 07/19/2022 3:31 PM CDT Inhaled Oxygen Concentration - - Weight 69.2 kg (152 lb 9.6 oz) 07/19/2022 3:31 P M CDT Height - - Body Mass Index 24.63 02/26/2022 1:48 PM CDT documented in this encounter Patient Instructions * Attachments The following attachments cannot be sent through Care Everywhere. * Sore Throat (Salvadorean) * Sore Throat: Here's Help: Video (Salvadorean) documented in this encounter Progress Notes * Delonte Marin MD - 07/19/2022 3:30 PM CDT Subjective Patient ID: Michelle is a 36 y.o. female. CC: Michelle Gomez is a 36 y.o. patient is seen today 07/19/2022 for Chief Complaint Patient presents with ??? Sore Throat X2 days NOTE: Abbreviations, medical idioms and medical terminology are frequently used in office visit notes. Please call my nurse if you have questions about what an idiom means. (examples = CC, HPI, ROS, FU, HTN, DM, SOB, PERERA, TM, WCC, etc.) This visit occurred during a National Public Health Emergency due to the SARS-CoV-2 / COVID-19 Pandemic. Patient requested an In Person Office Visit. Patient and I wore face masks as recommended by the CDC, [facility], and [place] COVID-19 Guidelines. HPI Sore Throat. I have sore throat for 2 days. We just came back from [place]. Patient is seen for sore throat. It began 2 days ago, and is getting worse. She low gradefever. Shehas tried OTC acetaminophen and it has not helped. She denies abdominal pain, cough, diarrhea, dyspnea, emesis, fatigue, headache, nausea, and rash. Review of Systems A 14-point ROS was performed. Additional ROS detailed in the HPI. Constitutional: No fever No chills. . HEENT: Has sore throat No earache. . Eyes: No diplopia No vision changes. . Respiratory: No cough No dyspnea. . Cardiovascular: No chest pain No edema. . Gastrointestinal: No diarrhea No nausea. . Endocrine: No excessive thirst. . Musculoskeletal: No muscle pain No bone pain. . Genitourinary: No hematuria No bladder pain. . Skin: No rash Not pale. . Neurological: No paresthesia No tremors. . Allergic/Immunologic: No rhinitis No hives. . Hematological: No bleeding Not pale. No LA . Psychiatric/Behavioral: No amnesia No anxiety. . Objective BP 124/80 Pulse 112 Temp 36.5 ??C (97.7 ??F) (Tympanic) Wt 69.2 kg (152 lb 9.6 oz) SpO2 97% BMI 24.63 kg/m?? Physical Exam Constitutional: Oriented to person, place, and time. Well-developed. Well- nourished. . . . Head: Normocephalic and atraumatic. . . . Eyes:. . . . ENT:. . . Throat erythema . Neck: Supple. Normal range of motion. [...] lesions. . . . Lymph:. . . Bilateral neck LA . Psychiatric: Mood and affect normal. Behavior is normal. Judgment and thought content normal. . . . Current medications: ??? amoxicillin (AMOXIL) 500 MG capsule, 0 ??? magnesium 200 MG TABS tablet, 0 ??? mupirocin (BACTROBAN) 2 % ointment, 0 ??? nortriptyline (PAMELOR) 10 MG capsule, 0 ??? podofilox (CONDYLOX) 0.5 % external solution, 0 ??? SUMAtriptan succinate (IMITREX) 100 MG tablet, 0 Assessment & Plan Problem List Items Addressed This Visit Sore throat - Primary Relevant Medications amoxicillin (AMOXIL) 500 MG capsule Other Relevant Orders AMB POCT Rapid Strep A Throat culture BMI: Body mass index is 24.63 kg/m??. Wt Readings from Last 3 Encounters: 07/19/22 69.2 kg (152 lb 9.6 oz) 06/07/22 71.3 kg (157 lb 2 oz) 04/12/22 74.2 kg (163 lb 9.6 oz) ASSESSMENT & PLAN: 1. Sore throat STATUS: New sore throat. No known sick contacts. RECOMMENDATIONS: Rest. Take and finish all medications as prescribed. May also use OTC. FOLLOW UP: Advised to call if gets worse or does not resolve. MEDICATION: I will prescribe an antibiotic due to signs and symptoms and pain. Discussed the risks vs benefits vs side effects vs alternatives of this medication with patient. She understands the risks and wishes to take the medication. ORDERS: Quick Strep Testing was negative. - amoxicillin (AMOXIL) 500 MG capsule; Take 1 (one) capsule by mouth 3 (three) times daily for 10 days. Dispense: 30 capsule; Refill: 0 - AMB POCT Rapid Strep A - Throat culture; Future Questions have been answered. Patient verbalizes understanding and agreement with the plan. Education has been provided. ORDERS: Orders Placed This Encounter Medications ??? amoxicillin (AMOXIL) 500 MG capsule Sig: Take 1 (one) capsule by mouth 3 (three) times daily for 10 days. Dispense: 30 capsule Refill: 0 TESTS: No visits with results within 8 Day(s) from this visit. Latest known visit with results is: Hospital Outpatient Visit on 02/26/2022 Component Date Value Ref Range Status ??? Trichomonas 02/26/2022 NEG NEG Final ??? Gardnerella vaginalis 02/26/2022 NEG NEG Final ??? Bri Species 02/26/2022 NEG NEG Final Delonte Agustin M.D. Next Visit: No follow-ups on file. documented in this encounter Plan of Treatment Not on file documented as of this encounter Goals Goal Patient Goal Type Associated Problems Recent Progress Patient-Stated? 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 Delonte Marin MD Use sunscreen daily Lifestyle No Divya Cr, RN Frequent Skin Checks Lifestyle No Divya Cr, RN documented as of this encounter Procedures Procedure Name Priority Date/Time Associated Diagnosis Comments AMB POCT RAPID STREP A Routine 07/19/2022 Sore throat documented in this encounter Results * Throat culture (07/19/2022 4:00 PM CDT) Specimen Description THROAT 07/19/2022 8:02 PM [facility] Special Requests NONE 07/19/2022 8:02 PM [facility] Culture Results FEW NORMAL UPPER RESPIRATORY MICROBIOTA 07/21/2022 9:17 AM [facility] Throat STRUCTURE OF ANTERIOR PORTION OF NECK / Unknown 07/19/2022 4:00 PM CDT 07/19/2022 8:04 PM CDT us Delonte Marin MD MICROBIOLOGY - GENERAL ORD ERABLES Final Result [facility] [address] [place], [place] [phone] [facility] [address] [place] [address] * AMB POCT Rapid Strep A (07/19/2022) Rapid Strep A Screen Negative Negative [facility] 07/19/2022 us Delonte Marin MD POINT OF CARE TEST ORDERAB LES Final Result [facility] documented in this encounter Visit Diagnoses Diagnosis Sore throat- Primary Acute pharyngitis documented in this encounter Additional Health Concerns Assessment Noted Time PHQ-9 Depression Total Score: 0 10/07/20 19 10:06 AM 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
--- OUTSIDE RECORDS SUMMARY | 2024-11-30 10:14 | XMS_ITS | Encounter Summary ---
Author Organization [employer] Address [address] [place] [address] Care Team Providers Care Livestock Sales Representative Name Role Phone Delonte Marin MD Primary Care Provider +1- [phone] Reason for Visit * Reason Comments Follow-up Encounter Details Date Type Department Care Team ([facility] st Contact Info) Description 10/08/2022 9:50 AM DATA PROGRAMMER Office Visit [facility] Neurology [address] [place] [phone] Delonte Farfan MD [address] [place] [id number] Chronic migraine without aura without status [...] Sign Reading Time Taken Comments Blood Pressure - - Pulse 78 10/08/2022 10:02 AM DATA PROGRAMMER Temperature - - Respiratory Rate 16 10/08/2022 10:02 AM DATA PROGRAMMER Oxygen Saturation 99% 10/08/2022 10:02 AM DATA PROGRAMMER Inhaled Oxygen Concentration - - Weight 67.1 kg (148 lb) 10/08/2022 10:02 AM DATA PROGRAMMER Height - - Body Mass Index 23.89 02/26/2022 1:48 PM CDT documented in this encounter Progress Notes * Delonte Farfan MD - 10/08/2022 9:50 AM CST Chief Complaint Patient presents with ??? Follow-up Michelle Gomez presents to the office today for routine follow up appointment. Maritza GRACIA Subjective: Patient ID: Michelle Gomez is a 37 y.o. female. HPI History: Past Medical History: Diagnosis Date ??? Carpal tunnel syndrome Neck disc problems.Sees chiropractor and Celebrex ??? Cervical spondylosis 12/21/2019 ??? Migraines Saw Adolph. Uses Imitrex and nortriptyline. Less migraines since Mirena out. Past Surgical History: Procedure Laterality Date ??? Carpal tunnel release Left 09/12/2015 Left hand carpal tunnel release./[facility] ??? Carpal tunnel release Right 10/24/2015 Right hand carpal tunnel release./[facility] ??? Foot surgery Left bunionectomy Family History Problem Relation Age of Onset ??? Skin cancer Mother ??? Celiac disease Mother ??? Migraines Father ??? Diabetes Paternal Grandmother ??? Diabetes Paternal Grandfather ??? Cancer Neg Hx ??? Heart disease Neg Hx Social History Tobacco Use ??? Smoking status: Never ??? Smokeless tobacco: Never Vaping Use ??? Vaping Use: Never used Substance Use Topics ??? Alcohol use: No Alcohol/week: 0.0 standard drinks ??? Drug use: No Allergies Allergen Reactions ??? Augmentin [Amoxicillin-Pot Clavulanate] Nausea And Vomiting Current Outpatient Medications Medication Sig Dispense Refill ??? fluticasone NASAL (FLONASE) 50 MCG/ACT nasal [...] by mouth nightly. 90 capsule 1 ??? SUMAtriptan succinate (IMITREX) 100 MG tablet Take 1 tablet by mouth as needed for Migraine. MAX 2 per day. 9 tablet 5 No current facility-administered medications for this visit. Review of Systems Objective: Pulse 78 Resp 16 Wt 67.1 kg (148 lb) SpO2 99% BMI 23.89 kg/m?? Physical Exam Pleasant affable conversant appropriate insightful excellent historian. No anomia. No aphasia.. Some people tomatoes as listed on that list his headache triggers. Ht rrr Eliminated tomatoes. Major trigger for her. Assessment & Plan Diagnosis: No diagnosis found. Medications provided No orders of the defined types were placed in this encounter. Additional Orders: No orders of the defined types were placed in this encounter. Michelle is back to see us today. Seems to be doing pretty well. Migraine headaches improved on currentregimen. He is on 30 mg of nortriptyline. Really trivial medication regimen main issue as we had discussed was. She is working out for 5 days a week. The serotonergic benefits of aerobic exercise is very good for fighting migraines as well as other serotonergic issues fibromyalgia etc. Vegetative signs etc. If she is doing well she could consider consider tapering down on the medication which shehas been think about for quite a while. Although all in all it might be worthwhile to find a way tohelp her get through the winter and then go down incrementally on the nortriptyline and see how shedoes. It sounds like lifestyle changes management of triggers and maintain a good active aerobic lifestyle has moderated and to a large part eliminated her migraine headache issues. should keep us advised to progress. We will methods to prevent while on medications. She will keep us advised to progress. Was advised to keep us advised of her progress. I will make no other changes. Martha Hill RN PROGRAMMER documented in this encounter Plan of Treatment Not on file documented as of this encounter Goals Goal Patient Goal Type Associated Problems Recent Progress Patient-Stated? Author Blood Pressure < 140/90 Blood Pressure 118/82(2024 10:05 AM DATA PROGRAMMER) No Delonte Marin MD Use sunscreen daily Lifestyle No Divya Cr RN Frequent Skin Checks Lifestyle No Gander, Divya B, RN documented as of this encounter Visit Diagnoses Diagnosis Chronic migraine without aura without status migrainosus, not intractable- Primary Chronic migraine without aura, without mention of intractable migraine without mention of status migrainosus documented in this encounter Additional Health Concerns Assessment Noted Time PHQ-9 Depression Total Score: 0 10/07/20 19 10:06 AM DATA PROGRAMMER documented as of this encounter Care Teams Livestock Sales Representative Relationship Specialty Start Date End Date Delonte Marin MD [address] [place] [address] [address] [place] [address] PCP - General Podiatry 08/23/15 documented as of this encounter
--- OUTSIDE RECORDS SUMMARY | 2024-11-30 10:14 | XMS_ITS | Encounter Summary ---
Author Organization [facility] Address [address] [place] [address] Care Team Providers Care Deputy County Counsel Name Role Phone Delonte Marin MD Primary Care Provider +1- [phone] Reason for Visit * Reason Comments Back Pain Encounter Details Date Type Department Care Team (Late st Contact Info) Description 02/05/2022 8:30 AM CDT Office Visit [address] [place] [address] Delonte Marin MD [address] [place] [address] [address] [place] [address] Anxiety (Primary Dx); Lumbar back pain; Cervical spondylosis Social History Tobacco Use Types Packs/Day Years [...] Sign Reading Time Taken Comments Blood Pressure 120/76 02/05/2022 8:53 AM CDT Pulse 99 02/05/2022 8:53 AM CDT Temperature - - Respiratory Rate - - Oxygen Saturation 98% 02/05/2022 8:53 AM CDT Inhaled Oxygen Concentration - - Weight 74.7 kg (164 lb 9.6 oz) 02/05/2022 8:53 A M CDT Height 167.6 cm (5' 6 ) 02/05/2022 8:53 AM CDT Body Mass Index 26.57 02/05/2022 8:53 AM CDT documented in this encounter Progress Notes * Delonte Marin MD - 02/05/2022 8:30 AM CDT Subjective Patient ID: Michelle is a 36 y.o. female. CC: Michelle Gomez is a 36 y.o. patient is seen today 02/05/2022 for Chief Complaint Patient presents with ??? Back Pain NOTE: Abbreviations, medical idioms and medical terminology [...] face masks as recommended by the CDC, [facility], and [place] COVID-19 Guidelines. HPI Anxiety. I am off my sertraline for over a year. It did not seem to work. I want to try something else. My friend is on Prozac and it works for her. I want to try that. I am stopping breast feeding in several weeks. I will atrat the Prozac after I stop breast feeding. She is seen for anxiety. It is presently not fully controlled. This was diagnosed several years ago. She presently takes nothing. She denies panic attacks and suicidal ideation. Low Back Pain. I slipped on my tile floor on day. No pain that day but, the next day I was stiff and sore. It hurts on and off ever since then. I use IBU when it hurts. I can do my [place] without pain. I sometimes go to a chiropractor for it. Patient is seen for low back pain. This is a recent condition.The pain began the day after . It is not getting worse. The pain comes and goes, worse with activity, on IBU. She also used heatwith only mild benefit. Patient denies trauma. She states there is no numbness and tingling. She denies chills, fever, incontinence of bowel or bladder, and muscle weakness. Neck Pain. I also get neck pain on and off and it seems a little worse since then. I had multiple XR and an MRI of my neck. Sometimes I go to a chiropractor for it. She is seen for chronic neck pain. The pain is in the cervical area and began several years ago, Itis not increasing. The pain is controlled on as needed IBU. She has used heat, ice and ROM stretches with no improvement. She denies pain with looking down, occasional popping, bilateral finger numbness, bilateral biceps, and burning pain. She denies chills, fever, and muscle weakness. Migraines. Sees Neuro Review of Systems A 14-point ROS was performed. Additional ROS detailed in the HPI. Constitutional: No fever No chills. . HEENT: No sore throat No earache. . Eyes: No diplopia No vision changes. . Respiratory: No cough No dyspnea. . Cardiovascular: No chest pain No edema. . Gastrointestinal: No diarrhea No nausea. . Endocrine: No excessive thirst. . Musculoskeletal: No muscle pain No bone pain. LBP. Neck pain . Genitourinary: No hematuria No bladder pain. . Skin: No rash Not pale. . Neurological: No paresthesia No tremors. . Allergic/Immunologic: No rhinitis No hives. . Hematological: No bleeding Not pale. No LA . Psychiatric/Behavioral: No amnesia Has anxiety. . Objective BP 120/76 (BP Location: [facility] [place] [place]) Pulse 99 Ht 1.676 m (5' 6 ) Wt 74.7 kg (164 lb 9.6 oz) SpO2 98% BMI 26.57 kg/m?? Physical Exam Constitutional: Oriented to person, place, and time. Well-developed. Well- nourished. . . . Head: Normocephalic and atraumatic. .full ROM. . Eyes:. . . . ENT:. . [...] Normal strength. Normal gait. . . . Mild tenderness at L1 and isaac spinal L1 . GenitoUrinary: No bladder tenderness. No distention. . . . Neurological: Sensation intact. Normal co-ordination. . . . Skin: Skin is warm and dry. Not pale. No lesions. . . . Lymph:. . . . Psychiatric: Mood and affect normal. Behavior is normal. Judgment and thought content normal. . . . Current medications: ??? magnesium 200 MG TABS tablet, 0 ??? nortriptyline (PAMELOR) 10 MG capsule, 0 ??? SUMAtriptan succinate (IMITREX) 100 MG tablet, 0 ??? tazarotene (AVAGE) 0.1 % cream, 0 ??? FLUoxetine (PROZAC) 20 MG capsule, 0 ??? [DISCONTINUED] ALPRAZolam (Xanax) 0.25 MG tablet, 0 ??? [DISCONTINUED] cefUROXime (CEFTIN) 500 MG tablet, 0 Assessment & Plan Problem List Items Addressed This Visit Anxiety - Primary Relevant Medications FLUoxetine (PROZAC) 20 MG capsule Cervical spondylosis Lumbar back pain BMI: Body mass index is 26.57 kg/m??. Wt Readings from Last 3 Encounters: 02/05/22 74.7 kg (164 lb 9.6 oz) 10/04/21 73.5 kg (162 lb) 09/19/21 73.7 kg (162 lb 6.4 oz) ASSESSMENT & PLAN: 1. Anxiety STATUS: Anxiety is uncontrolled on medication. RECOMMENDATIONS: Take medication as directed. Do not skip doses. FOLLOW UP: Follow up in 2months. Telephone us or return to office if worse. MEDICATION: Try Prozac / fluoxitine 20 mg daily. Discussed the risks vs benefits vs side effects vsalternatives of this medication with patient. She understands the risks and wishes to take the medication. ORDERS: - Prozac 20 mg daily. 2. Lumbar back pain STATUS: Recent low back pain. RECOMMENDATIONS: Try RICE (rest, ice, heat, ROM, and exercises). FOLLOW UP: Follow up as needed. Telephone us or return to office if worse. MEDICATION: Try IBU 600 mg as needed ORDERS: 3. Cervical spondylosis STATUS: Chronic. No red flags found. Neck pain is controlled on OTC medications. RECOMMENDATIONS: Continue RICE (rest, ice, heat, ROM and exercises). FOLLOW UP: Follow up as needed. MEDICATION: Try IBU 600 mg as needed ORDERS: Had XRs and MRI, discussed. Questions have been answered. Patient verbalizes understanding and agreement with the plan. Education has been provided. ORDERS: Orders Placed This Encounter Medications ??? FLUoxetine (PROZAC) 20 MG capsule Sig: Take 1 (one) capsule by mouth daily. Dispense: 30 capsule Refill: 2 TESTS: No visits with results within 8 Day(s) from this visit. Latest known visit with results is: Office Visit on 10/04/2021 Component Date Value Ref Range Status ??? Rapid Strep A Screen 10/04/2021 Negative Negative Final Next Visit: No follow-ups on file. documented in this encounter Plan of Treatment Not on file documented as of this encounter Goals Goal Patient Goal Type Associated Problems Recent Progress Patient-Stated? Author Blood Pressure < 140/90 Blood Pressure 118/82(2024 10:05 AM DAIRY BAR MANAGER) No Delonte Marin MD Use sunscreen daily Lifestyle No Divya Cr RN Frequent Skin Checks Lifestyle No Divya Cr, RN documented as of this encounter Visit Diagnoses Diagnosis Anxiety- Primary Anxiety state, unspecified Lumbar back pain Lumbago Cervical spondylosis Cervical spondylosis without myelopathy documented in this encounter Additional Health Concerns Assessment Noted Time PHQ-9 Depression Total Score: 0 10/07/20 19 10:06 AM DAIRY BAR MANAGER documented as of this encounter Care Teams Deputy County Counsel Relationship Specialty Start Date End Date Delonte Marin MD [address] [facility] [address] [place] [address] PCP - General Podiatry 08/23/15 documented as of this encounter
--- OUTSIDE RECORDS SUMMARY | 2024-11-30 10:14 | XMS_ITS | Encounter Summary ---
Author Organization [employer] Address [address] [place], [place] [id number] Care Team Providers Care Secondary Special Education Teacher Name Role Phone Delonte Marin MD Primary Care Provider +1- [phone] Reason for Visit * Reason Comments Facial Pain Sinuses draining, h/ a, f/w, congestion,sneezing,watery eyes, x 1 week Encounter Details Date Type Department Care Team (Late st Contact Info) Description 08/03/2022 8:00 AM CDT Office Visit [facility] Care [address] [place] [address] [address] [place] [address] Jaz Elizabeth PA [address] [place] [address] [address] [place] [address] Head congestion (Primary Dx); Sinus pressure; Upper respiratory tract infection, unspecified type Social History Tobacco Use Types Packs/Day [...] Sign Reading Time Taken Comments Blood Pressure 102/84 08/03/2022 8:10 AM CDT Pulse 86 08/03/2022 8:10 AM CDT Temperature 36.9 ??C (98.4 ??F) 08/03/2022 8:10 AM CD T Respiratory Rate 18 08/03/2022 8:10 AM CDT Oxygen Saturation 98% 08/03/2022 8:10 AM CDT Inhaled Oxygen Concentration - - Weight - - Height - - Body Mass Index - - documented in this encounter Patient Instructions * Patient Instructions* Jaz Elizabeth PA - 08/03/2022 8:00 AM CDT Rest as much as possible [...] you have a virus. If you develop sharp ear pain, fevers [id number], cough producing significant amount of foul sputum or difficulty breathing call the office orseek a medical provider promptly. If your symptoms or overall condition worsen significantly call the office or seek medical care. Call if not improving in 5-7 days. If your symptoms worsen return to the clinic or follow-up with your provider or go to the emergencyroom. documented in this encounter Progress Notes * Jaz Elizabeth PA - 08/03/2022 8:00 AM CDT [facility] [address] [facility] [address] [facility] [address] Dept: [phone] Dept Loc: [phone] Loc Date: 08/03/2022 Name: Michelle Gomez : 1985 PCP: Delonte Marin MD Subjective: Patient ID and HPI: Michelle Gomez is a pleasant 37 y.o. female, who presents with a complaint of facial pain with drainage, headache, fatigue with weakness, congestion, sneezing, watery eyes for the last week. She had some amoxicillin that she had been prescribed for her sore throat and she started to take this approximately 4 days ago. She states she does not feel any better and that the medication is not helping. She is requesting a steroid shot as this has helped her in the past. Allergy Information as of 08/03/22 AMOXICILLIN-POT CLAVULANATE Noted Status Severity Type Reaction 12/24/19 0921 Janeen Dickson RN 12/24/19 Active Medium Side Effect Nausea And Vomiting Current Outpatient Medications on File Prior to Visit Medication Sig Dispense Refill ??? magnesium 200 MG TABS tablet Take 200 mg by mouth daily. ??? nortriptyline (PAMELOR) 10 MG capsule Take 3 (three) capsules by mouth nightly. 270 capsule 3 ??? podofilox (CONDYLOX) 0.5 % external solution Apply to affected area nightly. 3.5 mL 4 ??? SUMAtriptan succinate (IMITREX) 100 MG tablet Take 1 tablet by mouth as needed for Migraine. MAX 2 per day. 9 tablet 5 ??? mupirocin (BACTROBAN) 2 % ointment Apply topically 3 (three) times daily. Apply to affected area. 22 g 0 No current facility-administered medications on file [...] release Right 10/24/2015 Right hand carpal tunnel release./[place] ??? Foot surgery Left bunionectomy Review of Systems Constitutional: Positive for malaise/fatigue. Negative for chills and fever. HENT: Positive for congestion and sinus pain. Negative for ear pain. Eyes: Positive for discharge (watery). Respiratory: Negative for cough. Gastrointestinal: Negative for abdominal pain, diarrhea, nausea and vomiting. Musculoskeletal: Negative for myalgias. Neurological: Positive for weakness and headaches. Objective: Blood pressure 102/84, pulse 86, temperature 36.9 ??C (98.4 ??F), resp. rate 18, SpO2 98 %. Physical Exam Vitals and nursing note reviewed. Constitutional: General: She is not in acute distress. Appearance: Normal appearance. She is normal weight. She is not ill-appearing or toxic-appearing. HENT: Head: Normocephalic and atraumatic. Right Ear: Tympanic membrane normal. Left Ear: Tympanic membrane normal. Nose: Congestion and rhinorrhea present. Comments: Mild erythema with edema Mouth/Throat: Mouth: Mucous membranes are moist. Pharynx: Oropharynx is clear. Eyes: Conjunctiva/sclera: Conjunctivae normal. Cardiovascular: Rate and Rhythm: Normal rate and regular rhythm. Heart sounds: Normal heart sounds. Pulmonary: Effort: Pulmonary effort is normal. Breath sounds: Normal breath sounds. Musculoskeletal: General: Normal range of motion. Cervical back: Normal range of motion and neck supple. No tenderness. Lymphadenopathy: Cervical: No cervical adenopathy. Skin: General: Skin is warm and dry. Neurological: General: No focal deficit present. Mental Status: She is alert. Assessment/Orders: Diagnoses and all orders for this visit: Head congestion - dexamethasone (DECADRON) injection - methylPREDNISolone acetate (DEPO-MEDROL) injection Sinus pressure Upper respiratory tract infection, unspecified type Other orders - fluticasone NASAL (FLONASE) 50 MCG/ACT nasal spray; 2 (two) sprays by Nasal route daily. to each nostril - loratadine (CLARITIN) 10 MG tablet; Take 1 (one) tablet by mouth daily as needed for Allergies. No results available. Plan: Patient was given an IM injection of Decadron 4 mg and Depo-Medrol 40 mg IM here. I have also written for Flonase and Claritin to help with her symptoms. She was instructed to finish off the amoxicillin that she is already started and to take it as directed. She was given home care instructions with instructions to return for worsening symptoms. Signed: SYLVIE Jacques disclaimer This dictation was partially electronically transcribed via [employer]. I endeavor to checkon the accuracy of the farm equipment engineer, but at times nonsensical statements inadvertently make it through the proofreading process. Cosigned by Belén Gotti DO at 08/06/2022 6:00 AM CDT Associated attestation - Belén Gotti DO - 08/06/2022 6:00 AM CDT I have read the documentation and agree with the PAC Treatment plan. documented in this encounter Plan of Treatment Not on file documented as of this encounter Goals Goal Patient Goal Type Associated Problems Recent Progress Patient-Stated? Author Blood Pressure < 140/90 Blood Pressure 118/82(2024 10:05 AM VETERINARIAN) No Delonte Marin MD Use sunscreen daily Lifestyle No Divya Cr, RN Frequent Skin Checks Lifestyle No Divya Cr, RN documented as of this encounter Visit Diagnoses Diagnosis Head congestion- Primary Other diseases of nasal cavity and sinuses Sinus pressure Other diseases of nasal cavity and sinuses Upper respiratory tract infection, unspecified type documented in this encounter Administered Medications Inactive Administered Medications - up to 3 most recent administrations Medication Order MAR Action Action Date Dose Rate Site dexamethasone (DECADRON) injection 4 mg, Intramuscular, ONCE, On Sat08/03/22 at 0900, For 1 dose, IVP over 5 minutesIndications:Head congestion Given 08/03/2022 8:25 AM CDT 4 mg Right Ventrogluteal methylPREDNISolone acetate (DEPO-MEDROL) injection 40 mg, Intramuscular, ONCE, On Sat08/03/22 at 0900, For 1 doseIndications:Head congestion Given 08/03/2022 8:25 AM CDT 40 mg Right Ventrogluteal documented in this encounter Additional Health Concerns Assessment Noted Time PHQ-9 Depression Total Score: 0 10/07/20 19 10:06 AM VETERINARIAN documented as of this encounter Care Teams Secondary Special Education Teacher Relationship Specialty Start Date End Date Delonte Marin MD [address] [facility] 0 [place] [address] PCP - General Podiatry 08/23/15 documented as of this encounter
--- OUTSIDE RECORDS SUMMARY | 2024-11-30 10:14 | XMS_ITS | Encounter Summary ---
Author Organization [employer] Address [address] [place] [address] Care Team Providers Care Weed Control Inspector Name Role Phone Delonte Marin MD Primary Care Provider +1- [phone] Encounter Details Date Type Department Care Team (Latest Contact Info) Description 07/19/2022 4:00 PM CDT - 07/19/2022 11:59 PM CDT Hospital Encounter [facility] [address] [place] [id number] Sore throat Discharge Disposition: Home - Discharge [...] this encounter Medications at Time of Discharge amoxicillin (AMOXIL) 500 MG capsuleIndication s:Sore throat Take 1 (one) capsule by mouth 3 (three) times daily for 10 days. 30 capsule 07/19/2022 2 magnesium 200 MG TABS tablet Take 1 (one) tablet by mouth daily. 4 mupirocin (BACTROBAN) 2 % ointment Apply topically 3 (three) times daily. Apply to affected area. 22 g 06/02/2022 2 nortriptyline (PAMELOR) 10 MG capsuleIndication s:Chronic migraine without aura without status migrainosus, not intractable Take 3 (three) capsules by mouth nightly. 270 capsule 3 11/28/2021 2 podofilox (CONDYLOX) 0.5 % external solutionIndicatio ns:Stucco keratosis Apply to affected area nightly. 3.5 mL 4 06/07/2022 2 SUMAtriptan succinate (IMITREX) 100 MG tabletIndications [...] < 140/90 Blood Pressure 118/82(2024 10:05 AM COIL WINDER STRAP) No Delonte Marin MD Use sunscreen daily Lifestyle No Divya Cr RN Frequent Skin Checks Lifestyle No Divya Cr, RN documented as of this encounter Procedures Procedure Name Priority Date/Time Associated Diagnosis Comments THROAT CULTURE Routine 07/19/2022 4:00 PM T Sore throat documented in this encounter Results * Throat culture (07/19/2022 4:00 PM T) Specimen Description THROAT 07/19/2022 8:02 PM [facility] Special Requests NONE 07/19/2022 8:02 PM [facility] Culture Results FEW NORMAL UPPER RESPIRATORY MICROBIOTA 07/21/2022 9:17 AM [facility] Throat STRUCTURE OF ANTERIOR PORTION OF NECK / Unknown 07/19/2022 4:00 PM CDT 07/19/2022 8:04 PM T us Delonte Marin MD MICROBIOLOGY - GENERAL ORD ERABLES Final Result [facility] [address] [place] [phone] [facility] [address] [place] [address] documented in this encounter Visit Diagnoses Diagnosis Sore throat Acute pharyngitis documented in this encounter Additional Health Concerns Assessment Noted Time PHQ-9 Depression Total Score: 0 10/07/20 19 10:06 AM COIL WINDER STRAP documented as of this encounter Care Teams Weed Control Inspector Relationship Specialty Start Date End Date Delonte Marin MD [address] [facility] [address] [place] [address] PCP - General Podiatry 08/23/15 documented as of this encounter
--- OUTSIDE RECORDS SUMMARY | 2024-11-30 10:14 | XMS_ITS | Encounter Summary ---
Author Organization [employer] Address [address] [place] [address] Care Team Providers Care Hand Zipper Trimmer Name Role Phone Delonte Marin MD Primary Care Provider +1- [phone] Reason for Visit * Reason Comments Finger Pain Pt states her rt poi nter finger cuticle is swollen and throbbing due to hangnail etc Encounter Details Date Type Department Care Team (Late st Contact Info) Description 06/02/2022 11:50 AM CDT Office Visit [address] [place] [address] Jaz Elizabeth PA [address] [place] [address] [address] [place] [address] Paronychia of right index finger (Primary Dx) Social History Tobacco Use Types [...] * Patient Instructions* Jaz Elizabeth PA - 06/02/2022 12:04 PM CDT Soak your finger in warm Epson salt water baths every 2-3 hours when awake Take Tylenol 500 mg and ibuprofen 600 mg every 6 hours as needed for pain Take the antibiotic as directed until completed You may try qsbd-wna-kzctonz antibiotic ointment or use the prescribed ointment to the affected area 2-3 times a day and apply a Band-Aid over this area Follow-up with your provider as needed If you develop increased redness, swelling, fevers, pus, foul odors or red streaks return to the clinic immediately * Attachments The following attachments cannot be sent through Care Everywhere. * Paronychia ([place] Citizen) documented in this encounter Progress Notes * Jaz Elizabeth PA - 06/02/2022 11:50 AM CDT Images from the original note were not included. [address] [facility] [address] Dept: [phone] Dept Loc: [phone] Loc Date: 06/02/2022 Name: Michelle Gomez : 1985 PCP: Delonte Marin MD Subjective: Patient ID and HPI: Michelle Gomez is a pleasant 36 y.o. female, who presents with a complaint of right index finger pain at the base of the nail. She states it is very sore and throbbing. She usually gets these but is able to take care of them at home, this time it is worse and she is having redness and increased pain. Allergy Information as of 06/02/22 AMOXICILLIN-POT CLAVULANATE Noted Status Severity Type Reaction [...] release Right 10/24/2015 Right hand carpal tunnel release./[place] ??? Foot surgery Left bunionectomy Review of Systems Constitutional: Negative for chills and fever. HENT: Negative. Respiratory: Negative. Gastrointestinal: Negative. Genitourinary: Negative. Skin: Redness at the base of her right index finger with mild swelling Neurological: Negative. Objective: There were no vitals taken for this visit. Physical Exam Vitals and nursing note reviewed. Constitutional: General: She is not in acute distress. Appearance: Normal appearance. She is normal weight. She is not ill-appearing or toxic-appearing. HENT: Head: Normocephalic and atraumatic. Cardiovascular: Rate and Rhythm: Normal rate and regular rhythm. Pulses: Normal pulses. Heart sounds: Normal heart sounds. Pulmonary: Effort: Pulmonary effort is normal. Breath sounds: Normal breath sounds. Musculoskeletal: General: Swelling and tenderness present. Normal range of motion. Right hand: Swelling (mild) and tenderness present. Hands: Skin: General: Skin is warm and dry. Findings: Erythema (mild) present. Neurological: General: No focal deficit present. Mental Status: She is alert. Assessment/Orders: Diagnoses and all orders for this visit: Paronychia of right index finger Other orders - cephALEXin (KEFLEX) 500 MG capsule; Take 1 (one) capsule by mouth 4 (four) times daily for 10 days. - mupirocin (BACTROBAN) 2 % ointment; Apply topically 3 (three) times daily. Apply to affected area. No results available. Plan: Patient was instructed to soak her finger in warm Epson salt strauss. I am placing her on Keflex to help eliminate the infection. I have also written for Bactroban, but instructed her that she could use urbp-hrm-dqnmivx bacitracin instead. She was given home care instructions with instructions to monitor for worsening symptoms and if she developed any of these to go directly to the emergency room. Signed: SYLVIE Jacques disclaimer This dictation was partially electronically transcribed via [employer]. I endeavor to checkon the accuracy of the director meetings, but at times nonsensical statements inadvertently make it through the proofreading process. Cosigned by Belén Gotti DO at 06/04/2022 3:10 PM CDT Associated attestation - Belén Gotti DO - 06/04/2022 3:10 PM CDT I have read the documentation and agree with the PAC Treatment plan. documented in this encounter Plan of Treatment Not on file documented as of this encounter Goals Goal Patient Goal Type Associated Problems Recent Progress Patient-Stated? Author Blood Pressure < 140/90 Blood Pressure 118/82(2024 10:05 AM SODA DISPENSER) No Delonte Marin MD Use sunscreen daily Lifestyle No Divya Cr, RN Frequent Skin Checks Lifestyle No Divya Cr, RN documented as of this encounter Visit Diagnoses Diagnosis Paronychia of right index finger- Primary documented in this encounter Additional Health Concerns Assessment Noted Time PHQ-9 Depression Total Score: 0 10/07/20 19 10:06 AM SODA DISPENSER documented as of this encounter Care Teams Hand Zipper Trimmer Relationship Specialty Start Date End Date Delonte Marin MD [address] [facility] [address] [place] [address] PCP - General Podiatry 08/23/15 documented as of this encounter
--- OUTSIDE RECORDS SUMMARY | 2024-11-30 10:14 | XMS_ITS | Encounter Summary ---
Author Organization [employer] Address [address] [place] [address] Care Team Providers Care Vet Assistant Name Role Phone Delonte Marin MD Primary Care Provider +1- [phone] Reason for Visit * Reason Comments Follow-up Flat wart hands No c hange since last treatment. Encounter Details Date Type Department Care Team (Late st Contact Info) Description 06/07/2022 8:15 AM CDT Office Visit [facility] - Dermatology [address] [id number] Romy Reilly, [facility] [address] [facility] [address] [place] [address] Stucco keratosis (Primary Dx); Inflamed seborrheic keratosis; Atypical mole; Chronic fatigue Social History Tobacco Use Types Packs/Day Years [...] Reading Time Taken Comments Blood Pressure 110/78 06/07/2022 8:08 AM CDT Pulse 115 06/07/2022 8:08 AM CDT Temperature 36.9 ??C (98.4 ??F) 06/07/2022 8:08 AM CD T Respiratory Rate - - Oxygen Saturation 99% 06/07/2022 8:08 AM CDT Inhaled Oxygen Concentration - - Weight 71.3 kg (157 lb 2 oz) 06/07/2022 8:08 AM CDT Height - - Body Mass Index 25.36 02/26/2022 1:48 PM CDT documented in this encounter Patient Instructions * Patient Instructions* Mary Jo Jaquez RN - 06/07/2022 8:15 AM CDT Images from the original note were not included. Intensive moisturizer 2x daily Vaseline treatments at night Repeat Condylox to keep down the height Seborrheic Keratosis: Care Instructions Your Care Instructions [...] as expected. Where can you learn more? Scan the QR code or Go to the Search Medical Library option found under the Resources tab in [place] [email or web address]. If you do not have access to [place], you can visit [email or web address] and select [employer] Photo Stories from the menu on the left. Enter Z945 in the search box to learn more about Seborrheic Keratosis: Care Instructions. Not on [employer]? Go to [email or web address] and click the Sign Up Now link to request an activation code. Current as of: October 02, 2021 Content Version: 13.2 ?? Phase III Development. Care instructions adapted under license by your healthcare professional. This care instruction is for use with your licensed healthcare professional. If you have questions about a medical condition or this instruction, always ask your healthcare professional. [employer] disclaims any warranty or liability for your use of this information. documented in this encounter Progress Notes * Romy Reilly DNP - 06/07/2022 8:15 AM CDT Images from the original note were not included. [facility] - DERMATOLOGY [address] [facility] [address] Dept: [phone] Dept Loc: [phone] Loc Provider: Romy Reilly DNP Primarydiagnosis: Stucco keratosis [L85.1] Medications prescribed: Requested Prescriptions Signed Prescriptions Disp Refills ??? podofilox (CONDYLOX) 0.5 % external solution 3.5 mL 4 Sig: Apply to affected area nightly. CHIEF COMPLAINT: Chief Complaint Patient presents with ??? Follow-up Flat wart hands No change since last treatment. Purpose of Visit: Flat Warts Referring Provider: Self Referral Primary Care Provider: Delonte Marin MD History [...] and Condylox- failed. Prior visit documentation reviewed 06/07/22 04/12/22: Michelle Gomez is a 36 y.o. female who is being seen for a flat wart vs stucco keratosis follow up, located on bilateral forearm and hands and has been present for a few years. Patient admits to itch and irritation with minimal scaling. 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 03/15/22: Michelle Gomez is a 36 y.o. [...] reviewed 03/15/22 ?? 10/30/21, Juany Hurst: ?? Michelle??Gomez??is a very pleasant 36 y.o.??female??presenting to clinic for follow up of flat warts. The patient was last seen in Dermatology??09/2021. ?? The patient is??worsened.- she believes the cream has now given her a rash. Current treatment consists of??tazorac??nightly. Patient is tolerating the treatment??poorly. Side effects of treatment include??none. ?? She has a spot of concern on the left denominational ?? She tried urea cream for her [...] pain. Skin: Negative for itching and rash. Stucco to hands/forearms Neurological: Negative for dizziness, weakness and headaches. Endo/Heme/Allergies: Does not bruise/bleed easily. Psychiatric/Behavioral: Negative for depression. The patient is not nervous/anxious. Blood pressure 110/78, pulse 115, temperature 36.9 ??C (98.4 ??F), weight 71.3 kg (157 lb 2 oz), SpO2 99 %. Other Derm History ??? Severe/blistering sunburn? Yes ??? Current using a tanning bed? No ??? Used a tanning bed? No ??? Use sunscreen on or near daily basis? Yes ? ? Last visit to Archivist Political History Date & Name of 10/2021 Juany Hurst [...] tunnel release./[place] ??? Foot surgery Left bunionectomy Social History [...] by mouth nightly. 270 capsule 3 ??? cephALEXin (KEFLEX) 500 MG capsule Take 1 (one) capsule by mouth 4 (four) times daily for 10 days. 40 capsule 0 ??? mupirocin (BACTROBAN) 2 % ointment Apply topically 3 (three) times daily. Apply to affected area. 22 g 0 ??? SUMAtriptan succinate (IMITREX) 100 MG tablet Take 1 tablet by mouth as needed for Migraine. MAX 2 per day. 9 tablet 5 No current facility-administered medications on file prior to visit. Allergies: Augmentin [amoxicillin-pot clavulanate] General appearance: healthy and alert Mental Health: She is Pleasant ENT: No sinus tenderness or lymph node enlargement. Throat clear with no erythematous changes or exudate. Integumentary: Michelle's [place] skin type is II. Skin Exam: Head, hair, EENT, neck, chest, back, abdomen, upper extremities, digits, nails, lower extremities and pelvic. Dermascope was used during the exam. Physical Exam Abdomen Upper extremities Impression and Plan: 1. Stucco keratosis .Reviewed medical history, labs, referral note, and prior visit documentation. Educated patient on skin cancer prevention, diagnosis, treatment options, risks, and benefits. All patient questions and concerns were addressed, with patient expressing understanding. This was a 21 minute visit, with >50% spent counseling the patient. Condylox nightly for maintenance. Orders Placed This Encounter ??? Destruction benign lesions up to 14 ([id number]) This order was created via procedure documentation Order Specific Question: Release to patient Answer: Immediate ??? podofilox (CONDYLOX) 0.5 % external solution Sig: Apply to affected area nightly. Dispense: 3.5 mL Refill: 4 2. Inflamed seborrheic keratosis Educated on diagnosis and risk Cryotherapy to 3 Inflamed SK Sun safety to reduce damaged skin and skin cancer: Educated the patient on reducing their risk of skin damage and skin cancer by using photoprotectionwith wearing protective clothing and sunscreen such as an SPF 30+ to be worn on a daily basis. [employer] skin cancer handout was [...] up appointment with any concerning mole changes. 3. Atypical mole Educated on diagnosis and risk Pre-cert for punch biopsy at follow up Follow Up: Follow up in about 4 months (around 10/08/2022) for Full skin. Education provided for all pathology and wound care. Romy Reilly DNP 06/07/2022 Mary Jo Storey, RN, have documented as a scribe for Romy Reilly DNP in the following sections of this encounter: HPI, ROS, Physical Exam, Assessment, Plan on 06/07/2022 at 8:08 AM. Electronic signature by director medical affairs Mary Jo Jaquez RN on 06/07/2022 at 8:08 AM. documented in this encounter Procedure Notes * Mary Jo Jaquez RN - 06/07/2022 8:15 AM CDTAssociated Order(s): Destruction benign lesions up to 14 ([id number]) Post-Procedure Diagnose(s): Inflamed seborrheic keratosis Destruction benign lesions up to 14 ([id number]) Date/Time: 06/07/2022 8:24 AM Performed by: Romy Reilly DNP Authorized by: Romy Reilly DNP [place] Protocol: Verbal consent obtained?: Yes Written consent [...] time out verifies correct patient, procedure, equipment, field support specialist and site/side marked as required.) Anesthesia: Local anesthesia used?: No Sedation: Patient sedated: No Procedure Modifiers: Modifiers Needed? Yes Procedure Comments: Cryotherapy to 3 Inflamed SK. documented in this encounter Miscellaneous Notes * Addendum Note - Edin Lama LPN - 06/07/2022 8:15 AM CDTAddended by: EDIN LAMA on: 06/07/2022 04:22 PM Modules accepted: Orders documented in this encounter Plan of Treatment Not on file documented as of this encounter Goals Goal Patient Goal Type Associated Problems Recent Progress Patient-Stated? Author Blood Pressure < 140/90 Blood Pressure 118/82(2024 10:05 AM ORNAMENTAL METAL FABRICATOR APPRENTICE) No Delonte Marin MD Use sunscreen daily Lifestyle No Divya Cr RN Frequent Skin Checks Lifestyle No Divya Cr RN documented as of this encounter Procedures Procedure Name Priority Date/Time Associated Diagnosis Comments DESTRUCTION BENIGN LESIONS UP TO 14 Routine 06/07/2022 8:24 AM CDT Inflamed seborrheic keratosis documented in this encounter Results * DESTRUCTION BENIGN LESIONS UP TO 14 (06/07/2022 8:24 AM CDT) Narrative [facility] - 06/07/2022 8:24 AM CDT Mary Jo Jaquez RN ? 06/07/2022 11:07 AM Destruction benign lesions up to 14 ??([id number]) Date/Time: 06/07/2022 8:24 AM Performed by: Romy Reilly DNP Authorized by: Romy Reilly DNP [place] Protocol: ?Verbal consent obtained?: Yes ?Written consent [...] time out verifies correct patient, procedure, equipment, field support specialist and site/side marked as required.) Anesthesia: ??Local anesthesia used?: No ?? Sedation: ?Patient sedated: No ?? Procedure Modifiers: ??Modifiers Needed? ??Yes Procedure Comments: ?? Cryotherapy to 3 Inflamed SK. us Romy Reilly DNP PROCEDURE/MINOR SURGICAL ORDE GARRETT Final Result [facility] [facility] [address] [place], [place] [phone] documented in this encounter Visit Diagnoses Diagnosis Stucco keratosis- Primary Acquired keratoderma Inflamed seborrheic keratosis Atypical mole Benign neoplasm of skin, site unspecified Chronic fatigue Other malaise and fatigue documented in this encounter Additional Health Concerns Assessment Noted Time PHQ-9 Depression Total Score: 0 10/07/20 19 10:06 AM ORNAMENTAL METAL FABRICATOR APPRENTICE documented as of this encounter Care Teams Vet Assistant Relationship Specialty Start Date End Date Delonte Marin MD [address] [facility] [address] [place] [address] PCP - General Podiatry 08/23/15 documented as of this encounter
--- OUTSIDE RECORDS SUMMARY | 2024-11-30 10:14 | XMS_ITS | Encounter Summary ---
Author Organization [employer] Address [address] [place] [address] Care Team Providers Care Cotton Tipper Name Role Phone Delonte Marin MD Primary Care Provider +1- [phone] Reason for Visit * Reason Onset Date Comments other 04/10/2022 Encounter Details Date Type Department Care Team (Late st Contact Info) Description 04/10/2022 Telephone [facility] Orthopedics and Sports Medicine [address] [place] [address] Rose Marie Doran, [facility] [address] [place] [address] other Social History Tobacco Use [...] - Rose Marie Doran MA - 04/10/2022 3:52 PM CDT Call returned to Michelle. She is wanting to know if she could work out still. I informed Michelle she needed to use pain as her guide. Michelle understands and agrees to this plan. * Telephone Encounter - Rose Marie Doran MA - 04/10/2022 3:51 PM CDT ----- Message from Nelly Painter sent at 04/10/2022 12:34 PM CDT ----- Provider: Dr. Muhammad Patient call back number: Preferred Please give Michelle a call back when you can. Thank you. documented in this encounter Plan of Treatment Not on file documented as of this encounter Goals Goal Patient Goal Type Associated Problems Recent Progress Patient-Stated? Author Blood Pressure < 140/90 Blood Pressure 118/82(2024 10:05 AM ADVANCED MANUFACTURING CONSULTANT) No Delonte Marin MD Use sunscreen daily Lifestyle No Divya Cr RN Frequent Skin Checks Lifestyle No Divya Cr, RN documented as of this encounter Visit Diagnoses Not on filedocumented in this encounter Additional Health Concerns Assessment Noted Time PHQ-9 Depression Total Score: 0 10/07/20 19 10:06 AM ADVANCED MANUFACTURING CONSULTANT documented as of this encounter Care Teams Cotton Tipper Relationship Specialty Start Date End Date Delonte Marin MD [address] [facility] [address] [place] [address] PCP - General Podiatry 08/23/15 documented as of this encounter
--- OUTSIDE RECORDS SUMMARY | 2024-11-30 10:14 | XMS_ITS | Encounter Summary ---
Author Organization [employer] Address [address] [place], [place] [address] Care Team Providers Care Head Holder Name Role Phone Delonte Marin MD Primary Care Provider +1- [phone] Reason for Visit * Reason Comments Back Pain-New >28 days Encounter Details Date Type Department Care Team (Latest Contact Info) Description 04/09/2022 11:05 AM CDT Clinical Support [facility] [address] [place] [address] Jana Muhammad, DO [address] [place] [address] Fiona Paez, RTR [address] [place] [address] Chronic midline low back pain [...] < 140/90 Blood Pressure 118/82(2024 10:05 AM POWER CHISEL OPERATOR) No Delonte Marin MD Use sunscreen daily Lifestyle No Divya Cr RN Frequent Skin Checks Lifestyle No Divya Cr RN documented as of this encounter Procedures Procedure Name Priority Date/Time Associated Diagnosis Comments XR LUMBOSACRAL SPINE 2 OR 3 VIEWS Routine 04/09/2022 11:06 AM CDT Chronic midline low back pain without sciatica documented in this encounter Results * XR Lumbosacral Spine 2 or 3 Views (04/09/2022 11:06 AM CDT) Anatomical Region Laterality Modality T-spine, L-spine, Pelvis Compute d Radiography 04/09/2022 11:0 6 AM CDT Narrative 04/09/2022 11:22 AM CDT [address] ??[address] DIAGNOSTIC IMAGING Name: MICHELLE GOMEZ ??Ordering Phys: JANA MUHAMMAD Date of : 1985 ?Gender: F ??Accession Number: [id number] EXAM DESCRIPTION: XR LUMBOSACRAL SPINE 2 OR [...] Procedure Note Javier Chaudhary MD - 04/09/[address] [address] DIAGNOSTIC IMAGING Name: MICHELLE GOMEZ Ordering Phys: JANA MUHAMMAD Date of : 1985 Gender: F Accession Number: [id number] EXAM DESCRIPTION: XR LUMBOSACRAL SPINE 2 OR [...] Depression Total Score: 0 10/07/20 10:06 AM POWER CHISEL OPERATOR documented as of this encounter Care Teams Head Holder Relationship Specialty Start Date End Date Delonte Marin MD [address] [facility] 0 [place] [address] PCP - General Podiatry 08/23/15 documented as of this encounter
--- OUTSIDE RECORDS SUMMARY | 2024-11-30 10:14 | XMS_ITS | Encounter Summary ---
Author Organization [employer] Address [address] [place] [address] Care Team Providers Care Fire Ranger Name Role Phone Delonte Marin MD Primary Care Provider +1- [phone] Reason for Visit * Reason Onset Date Comments Medication Refill 08/29/2022 Encounter Details Date Type Department Care Team ([facility] st Contact Info) Description 08/29/2022 Refill [facility] Neurology [address] [place] [address] Martha Hill RN [address] [place] [address] Chronic migraine without aura without status [...] < 140/90 Blood Pressure 118/82(2024 10:05 AM TONGUE CARRIER) No Delonte Marin MD Use sunscreen daily [...] Total Score: 0 10/07/20 19 10:06 AM TONGUE CARRIER documented as of this encounter Care Teams Fire Ranger Relationship Specialty Start Date End Date Delonte Marin MD [address] [facility] [address] [place] [address] PCP - General Podiatry 08/23/15 documented as of this encounter
--- OUTSIDE RECORDS SUMMARY | 2024-11-30 10:14 | XMS_ITS | Encounter Summary ---
Author Organization [employer] Address [address] [place] [address] Care Team Providers Care Environmental Planner Name Role Phone Delonte Marin MD Primary Care Provider +1- [phone] Reason for Visit * Reason Comments Follow-up Encounter Details Date Type Department Care Team ([facility] st Contact Info) Description 10/17/2022 9:00 AM UPHOLSTERY SEWER Office Visit [facility] Dermatology [address] [place] [id number] Juany Hurst MD [address] [place] [address] Other acne (Primary Dx); Fissured skin; Verruca plana; Disturbance of skin sensation Social History Tobacco [...] Progress Notes * Juany Hurst MD - 10/17/2022 9:00 AM CST CHIEF COMPLAINT: Follow-up HISTORY OF PRESENT ILLNESS: Michelle Gomez is a very pleasant 37 y.o. female presenting to clinic for follow up of verruca plana. The patient was last seen in Dermatology 10/30/21. She returns today for a follow-up of verruca plana to the hands for which she was using Tazorac 0.1% cream in the past and this was not successful. She was evaluated by DETECTIVE CHIEF Romy Reilly and these areas were treated with liquid nitrogen without success. She notes that she had a tube of the Tazorac which had not been opened she has been using for the past month and this is given her improvement. She wonders what can be done for fissures on her feet. Already using urea 40% nightly. REVIEW OF SYSTEMS: Negative except as noted [...] Scattered flat pink papules to dorsal hands. Fissuring to the heels. RESULTS REVIEW: N/A IMPRESSION & PLAN: Flat warts, with side effect of treatment. Continue Tazorac nightly Recommend applying a thick layer of cetaphil cream over top to minimize irritation Discussed that likely the use of it in the winter with frequent hand washing has exacerbated the irritation. Potential adverse effects of treatment including but not limited to localized redness, blistering, postinflammatory hyperpigmentation, infection, and wound were reviewed carefully with the patient who consented to proceed with treatment. Subsequently, 2 lesions were treated with liquid nitrogen cryotherapy today. Wound care reviewed. Calluses and fissures, not responsive to prior therapy. Recommend continuing Urea 40% cream nightly indefinitely for better improvement but also consider using a product with urea and salicylic acid combined for possible additional benefit. Recommend super glue for the fissures. DISPOSITION: Follow up as needed. Juany Hurst MD Department of Dermatology [facility] LSTERY SEWER documented in this encounter Plan of Treatment Not on file documented as of this encounter Goals Goal Patient Goal Type Associated Problems Recent Progress Patient-Stated? Author Blood Pressure < 140/90 Blood Pressure 118/82(2024 10:05 AM UPHOLSTERY SEWER) No Delonte Marin MD Use sunscreen daily Lifestyle No Divya Cr RN Frequent Skin Checks Lifestyle No Divya Cr, RN documented as of this encounter Visit Diagnoses Diagnosis Other acne- Primary Fissured skin Other specified disorder of skin Verruca plana Other specified viral warts Disturbance of skin sensation documented in this encounter Additional Health Concerns Assessment Noted Time PHQ-9 Depression Total Score: 0 10/07/20 19 10:06 AM UPHOLSTERY SEWER documented as of this encounter Care Teams Environmental Planner Relationship Specialty Start Date End Date Delonte Marin MD [address] [facility] [address] [place] [address] PCP - General Podiatry 08/23/15 documented as of this encounter
--- OUTSIDE RECORDS SUMMARY | 2024-11-30 10:14 | XMS_ITS | Encounter Summary ---
Author Organization [employer] Address [address] [place] [address] Care Team Providers Care Zipper Ironer Name Role Phone Delonte Marin MD Primary Care Provider +1- [phone] Reason for Visit * Reason Onset Date Comments Triage call 08/03/2022 Encounter Details Date Type Department Care Team (Late st Contact Info) Description 08/03/2022 Telephone [facility] [address] [place] [address] Yeimy Manzano LPN [address] [place] [address] Triage call Social History Tobacco Use Types Packs/Day Years [...] encounter Miscellaneous Notes * Telephone Encounter - Yeimy Manzano LPN - 08/03/2022 8:43 AM CDT [facility] Nurse Triage for All Respiratory/Flu Like Symptoms Describe symptoms: Do you have a PRODUCTIVE COUGH? No DRY COUGH? No SHORTNESS OF BREATH? No FEVER? No CHILLS? No LOSS OF TASTE? No LOSS OF SMELL? No HEADACHE? No FATIGUE? Yes WEAKNESS? Yes SNEEZING? Yes WATERY EYES? Yes SINUS PAIN? Yes SINUS PRESSURE? Yes MUSCLE ACHES? No SORE THROAT? No NAUSEA? No VOMITING? No DIARRHEA? No RASH? No Additional symptoms: congestion Have you seen another provider in the past 48 hours? No Please describe length of onset of symptoms: When did your symptoms begin? 07/27/22 Are they improving, unchanged or getting worse? worsening Do you have an outstanding COVID-19 Test No Have you had your COVID vaccine? Yes If Yes, when was your last dose? 07/10/21 Please describe any significant co morbidities: NONE COPD, HEART DISEASE, HIGH BLOOD PRESSURE, ASTHMA, IMMUNOCOMPROMISED, DIABETES, CHRONIC KIDNEY DISEASE OTHER CHRONIC LUNG DISEASE Have you had close contact with (close contact means within 6 feet of exposure to) someone who has a laboratory confirmed test of COVID-19? no Are you currently working?No Is yes, where do you work at: documented in this encounter Plan of Treatment Not on file documented as of this encounter Goals Goal Patient Goal Type Associated Problems Recent Progress Patient-Stated? Author Blood Pressure < 140/90 Blood Pressure 118/82(2024 10:05 AM SUSTAINABILITY SPECIALIST) No Delonte Marin MD Use sunscreen daily Lifestyle No Divya Cr RN Frequent Skin Checks Lifestyle No Divya Cr RN documented as of this encounter Visit Diagnoses Not on filedocumented in this encounter Additional Health Concerns Assessment Noted Time PHQ-9 Depression Total Score: 0 10/07/20 19 10:06 AM SUSTAINABILITY SPECIALIST documented as of this encounter Care Teams Zipper Ironer Relationship Specialty Start Date End Date Delonte Marin MD [address] [facility] [address] [place] [address] PCP - General Podiatry 08/23/15 documented as of this encounter
--- OUTSIDE RECORDS SUMMARY | 2024-11-30 10:15 | XMS_ITS | Encounter Summary ---
Author Organization [employer] Address [address] [place] [address] Care Team Providers Care Advice Line Rn Name Role Phone Delonte Marin MD Primary Care Provider +1- [phone] Reason for Visit * Reason Onset Date Comments Medication Refill 11/28/2021 Encounter Details Date Type Department Care Team ([facility] st Contact Info) Description 11/28/2021 Refill [facility] Neurology [address] [place] [address] [place] [address] [place] [address] Chronic migraine without aura without status migrainosus, not intractable Social History Tobacco Use Types Packs/Day Years Used Date Smoking Tobacco: Never Smokeless Tobacco: Never Alcohol Use Standard Drinks/Week Comments No 0 (1 standard drink = 0.6 oz pur e alcohol) PHQ-2 Answer Date Recorded PHQ-2 Total Score (RETIRED) 0 03/19 Comments Unknown Sex and Gender Information Value Date Recorded Sex Assigned at Not on file Legal Sex Female 4:27 PM CDT Gender Identity Not on file Sexual Orientation Not on file 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 No / Unsure 10/30/2021 8:06 AM MECHANICAL CAD DRAFTER documented as of this encounter Plan of Treatment Not on file documented as of this encounter Goals Goal Patient Goal Type Associated Problems Recent Progress Patient-Stated? Author Blood Pressure < 140/90 Blood Pressure 118/82(2024 10:05 AM MECHANICAL CAD DRAFTER) No Delonte Marin MD Use sunscreen daily [...] Depression Total Score: 0 10/07/20 10:06 AM MECHANICAL CAD DRAFTER documented as of this encounter Care Teams Advice Line Rn Relationship Specialty Start Date End Date Delonte Marin MD [address] [facility] [address] [place] [address] PCP - General Podiatry 08/23/15 documented as of this encounter
--- OUTSIDE RECORDS SUMMARY | 2024-11-30 10:15 | XMS_ITS | Encounter Summary ---
Author Organization [employer] [facility] Address [address] [place], [place] [phone] Care Team Providers Care Minor League Baseball Player Name Role Phone Delonte Marin MD Primary Care Provider +1- [phone] Encounter Details Date Type Department Care Team (Latest Contact Info) Description 10/30/2021 Travel Social History Tobacco Use Types Packs/Day [...] COVID-19? No / Unsure 10/30/2021 8:06 AM GEOPHYSICAL DRAFTER documented as of this encounter Plan of Treatment Not on file documented as of this encounter Goals Goal Patient Goal Type Associated Problems Recent Progress Patient-Stated? Author Blood Pressure < 140/90 Blood Pressure 118/82(2024 10:05 AM GEOPHYSICAL DRAFTER) No Delonte Marin MD Use sunscreen daily Lifestyle No Divya Cr, RN Frequent Skin Checks Lifestyle No Divya Cr, RN documented as of this encounter Visit Diagnoses Not on filedocumented in this encounter Additional Health Concerns Assessment Noted Time PHQ-9 Depression Total Score: 0 10/07/20 10:06 AM GEOPHYSICAL DRAFTER documented as of this encounter Care Teams Minor League Baseball Player Relationship Specialty Start Date End Date Delonte Marin MD [address] [facility] [address] [place] [address] PCP - General Podiatry 08/23/15 documented as of this encounter
--- OUTSIDE RECORDS SUMMARY | 2024-11-30 10:15 | XMS_ITS | Encounter Summary ---
Author Organization [facility] Address [address] [place], [place] [id number] Care Team Providers Care Customer Contact Sales Associate Name Role Phone Delonte Marin MD Primary Care Provider +1- [phone] Encounter Details Date Type Department Care Team (Latest Contact Info) Description 12/22/2021 Travel Social History Tobacco Use Types Packs/Day [...] have Coronavirus / COVID-19? No / Unsure 12/22/2021 9:35 AM WEAPONS DESIGNER documented as of this encounter Plan of Treatment Not on file documented as of this encounter Goals Goal Patient Goal Type Associated Problems Recent Progress Patient-Stated? Author Blood Pressure < 140/90 Blood Pressure 118/82(2024 10:05 AM WEAPONS DESIGNER) No Delonte Marin MD Use sunscreen daily Lifestyle No Divya Cr, RN Frequent Skin Checks Lifestyle No Divya Cr, RN documented as of this encounter Visit Diagnoses Not on filedocumented in this encounter Additional Health Concerns Assessment Noted Time PHQ-9 Depression Total Score: 0 10/07/20 10:06 AM WEAPONS DESIGNER documented as of this encounter Care Teams Customer Contact Sales Associate Relationship Specialty Start Date End Date Delonte Marin MD [address] [facility] [address] [place] [address] PCP - General Podiatry 08/23/15 documented as of this encounter
--- OUTSIDE RECORDS SUMMARY | 2024-11-30 10:15 | XMS_ITS | Encounter Summary ---
Author Organization [employer] Address [address] [place] [address] Care Team Providers Care Event Manager Name Role Phone Delonte Marin MD Primary Care Provider +1- [phone] Encounter Details Date Type Department Care Team ([facility] st Contact Info) Description 12/18/2021 Orders Only [facility] Dermatology [address] [place] [address] Sailaja Bianchi LPN [address] [place] [address] Flat wart Social History Tobacco [...] < 140/90 Blood Pressure 118/82(2024 10:05 AM DINING SERVICE WORKER) No Delonte Marin MD Use sunscreen daily Lifestyle No Divya Cr, RN Frequent Skin Checks Lifestyle No Divya Cr, RN documented as of this encounter Visit Diagnoses Diagnosis Flat wart Other specified viral warts documented in this encounter Additional Health Concerns Assessment Noted Time PHQ-9 Depression Total Score: 0 10/07/20 10:06 AM DINING SERVICE WORKER documented as of this encounter Care Teams Event Manager Relationship Specialty [place] [address] [place] [address] [address] [place] [address] PCP - General Podiatry 08/23/15 documented as of this encounter
--- OUTSIDE RECORDS SUMMARY | 2024-11-30 10:15 | XMS_ITS | Encounter Summary ---
Author Organization [employer] Address [address] [place] [address] Care Team Providers Care Land Mobile Radio Technician Name Role Phone Kathy Fenton MD Primary Care Provider +1- [phone] Reason for Visit * Reason Comments Sore Throat symptoms started las t night, pt has a sore throat and no other symptoms Encounter Details Date Type Department Care Team (Late st Contact Info) Description 10/04/2021 9:30 AM SQUAD SERGEANT Office Visit [facility] [address] [place] [address] [address] [place] [address] Sheela Cheng, MERT [address] [facility] [address] [place] [address] Sore throat (Primary Dx) Social [...] COVID-19? No / Unsure 10/30/2021 8:06 AM SQUAD SERGEANT documented as of this encounter Last Filed Vital Signs Vital Sign Reading Time Taken Comments Blood Pressure 120/80 10/04/2021 9:44 AM SQUAD SERGEANT Pulse 96 10/04/2021 9:44 AM SQUAD SERGEANT Temperature 36.4 ??C (97.5 ??F) 10/04/2021 9:44 AM CS T Respiratory Rate 18 10/04/2021 9:44 AM SQUAD SERGEANT Oxygen Saturation 98% 10/04/2021 9:44 AM SQUAD SERGEANT Inhaled Oxygen Concentration - - Weight 73.5 kg (162 lb) 10/04/2021 9:44 AM SQUAD SERGEANT Height 167.6 cm (5' 6 ) 10/04/2021 9:44 AM SQUAD SERGEANT Body Mass Index 26.15 10/04/2021 9:44 AM SQUAD SERGEANT documented in this encounter Patient Instructions * Patient Instructions* Sheela Cheng NP - 10/04/2021 9:30 AM SQUAD SERGEANT Rapid strep negative. For now treat conservatively- plenty of fluids, rest, avoid OTC multi symptomcold/flu preparations. Sore throat home remedy- one tablespoon or more honey, one tablespoon apple cider vinegar in a cup of very hot water. Stir and sip. May repeat as often as you wish. Use the antibiotic only if not improving in the next 3-4 days, or if symptoms worsen. D SERGEANT D SERGEANT documented in this encounter Progress Notes * Sheela Cheng NP - 10/04/2021 9:30 AM CST [address] [facility] [address] Dept: [phone] Dept Loc: [phone] Loc Date: 10/04/2021 Name: Michelle Gomez : 1985 PCP: Kathy Fenton MD SUBJECTIVE: Michelle Gomez is a 36 y.o. female. Patient is here today for Chief Complaint Patient presents with ??? Sore Throat symptoms started last night, pt has a sore throat and no other symptoms Information obtained from: patient. Today's concerns: Michelle Gomez is a 36 year old female here with complaints of sore throat that started last night. She does not have any other symptoms. Her young daughter has some URI symptoms- runny nose and congestion. Smoking or smoke exposure: Social History Tobacco Use Smoking Status Never Smoker Smokeless Tobacco Never Used Review of Systems Constitutional: Negative for activity change, appetite change, chills, fatigue and fever. HENT: Positive for sore throat. Negative for ear pain, postnasal drip, rhinorrhea, sinus pressure, sinus pain and sneezing. Respiratory: Negative for cough. Cardiovascular: Negative. Gastrointestinal: Negative. Musculoskeletal: Negative for arthralgias and myalgias. Neurological: Negative for headaches. Hematological: Negative. Patient's problem list, medications, allergies, past medical, surgical, social and family historieswere reviewed and updated as appropriate. OBJECTIVE: Vitals: 10/04/21 0944 BP: 120/80 BP Location: right upper extremity BP Position: sitting BP Cuff Size: Regular (Adult) Pulse: 96 Resp: 18 Temp: 36.4 ??C (97.5 ??F) TempSrc: Temporal SpO2: 98% Weight: 73.5 kg (162 lb) Height: 1.676 m (5' 6 ) 36.4 ??C (97.5 ??F) (Temporal) Pulse: 96 RespRate: 18 BP Readings from Last 3 Encounters: 10/04/21 120/80 09/19/21 120/80 08/21/21 120/70 Wt Readings from Last 3 Encounters: 10/04/21 73.5 kg (162 lb) 09/19/21 73.7 kg (162 lb 6.4 oz) 08/21/21 74.9 kg (165 lb 3.2 oz) SpO2 W Comments Most recent update: 10/04/2021 9:44 AM SpO2 98% Body mass index is 26.15 kg/m??. Physical Exam Vitals and nursing note reviewed. Constitutional: General: She is not in acute distress. Appearance: She is well-developed. She is not ill-appearing or toxic-appearing. HENT: Head: Normocephalic and atraumatic. Right Ear: Tympanic membrane normal. Left Ear: Tympanic membrane normal. Nose: No congestion or rhinorrhea. Mouth/Throat: Mouth: Mucous membranes are moist. No oral lesions. Pharynx: No pharyngeal swelling or posterior oropharyngeal erythema. Tonsils: No tonsillar exudate or tonsillar abscesses. 1+ on the right. 1+ on the left. Eyes: Conjunctiva/sclera: Conjunctivae normal. Pupils: Pupils are equal, round, and reactive to light. Neck: Thyroid: No thyromegaly. Cardiovascular: Rate and Rhythm: Normal rate and regular rhythm. Heart sounds: Normal heart sounds. Pulmonary: Effort: Pulmonary effort is normal. Breath sounds: Normal breath sounds. Musculoskeletal: Cervical back: Normal range of motion and neck supple. Lymphadenopathy: Cervical: Cervical adenopathy present. Skin: General: Skin is warm. Capillary Refill: Capillary refill takes less than 2 seconds. Neurological: General: No focal deficit present. Mental Status: She is alert. Results for orders placed or performed in visit on 10/04/21 AMB POCT Rapid Strep A Collection Time: 10/04/21 12:00 AM Result Value Ref Range Rapid Strep A Screen Negative Negative ASSESSMENT: 1. Sore throat Orders Placed This Encounter ??? cefUROXime (CEFTIN) 500 MG tablet Sig: Take 1 (one) tablet by mouth 2 (two) times daily. Dispense: 20 tablet Refill: 0 Order Specific Question: Supervising Provider? Answer: KATHY FENTON [[id number]] PLAN: Sore throat: Rapid strep negative. For now treat conservatively- plenty of fluids, rest, avoid OTC multi symptom cold/flu preparations. Discussed obtaining a strep confirmation or culture. Her symptoms are significant enough that she was surprised that her strep was negative. She would prefer to see how she does over the next few days but getting out is not easy- small children at home, etc.. She was provided a WRITTEN prescription for antibiotic to use should her symptoms persist longer than expected, she develops fevers, more pain , body aches, throat swelling. Try the home remedies as discussed. This exam was performed with face mask, face shield, protective gown and gloves, and scrub hat wornwhile in contact with this patient. [employer] disclaimer This dictation was partially electronically transcribed via [employer] I endeavor to checkon the accuracy of the small wind energy installer, but at times nonsensical statements inadvertently make it through the proofreading process. Encounter Date: 10/04/2021 No follow-ups on file. Signed: Sheela Cheng NP 10/04/2021 10:45 AM D SERGEANT documented in this encounter Miscellaneous Notes * Addendum Note - Sheela Cheng NP - 10/04/2021 9:30 AM CSTAddended by: SHEELA CHENG on: 11/01/2021 09:26 PM Modules accepted: Level of Service D SERGEANT documented in this encounter Plan of Treatment Not on file documented as of this encounter Goals Goal Patient Goal Type Associated Problems Recent Progress Patient-Stated? Author Blood Pressure < 140/90 Blood Pressure 118/82(2024 10:05 AM SQUAD SERGEANT) No Kathy Fenton MD Use sunscreen daily Lifestyle No Divya Cr RN Frequent Skin Checks Lifestyle No Divya Cr RN documented as of this encounter Procedures Procedure Name Priority Date/Time Associated Diagnosis Comments AMB POCT RAPID STREP A Routine 10/04/2021 Sore throat documented in this encounter Results * AMB POCT Rapid Strep A (10/04/2021) [facility] Rapid Strep A Screen Negative Negative [facility] 10/04/2021 us Sheela Cheng NP POINT OF CARE TEST ORDERABLES Final Result [facility] documented in this encounter Visit Diagnoses Diagnosis Sore throat- Primary Acute pharyngitis documented in this encounter Additional Health Concerns Assessment Noted Time PHQ-9 Depression Total Score: 0 10/07/20 19 10:06 AM SQUAD SERGEANT documented as of this encounter Care Teams Land Mobile Radio Technician Relationship Specialty Start Date End Date Kathy Fenton MD [address] [facility] [address] [place] [address] PCP - General Podiatry 08/23/15 documented as of this encounter
--- OUTSIDE RECORDS SUMMARY | 2024-11-30 10:15 | XMS_ITS | Encounter Summary ---
Author Organization [employer] Address [address] [place] [address] Care Team Providers Care Orthopedic Technician Name Role Phone Delonte Marin MD Primary Care Provider [phone]- [phone] Encounter Details Date Type Department Care Team ([facility] st Contact Info) Description 08/24/2021 8:10 AM CDT Telemedicine [facility] Neurology [address] [place] [id number] Delonte Farfan MD [address] [place] [address] [address] [place] [address] Migraine without status migrainosus, not intractable, unspecified migraine type (Primary Dx) Social History Tobacco Use [...] have Coronavirus / COVID-19? No / Unsure 08/21/2021 9:07 AM CDT documented as of this encounter Progress Notes * Delonte Farfan MD - 08/24/2021 8:10 AM CDT [facility] Department of Neurology Telehealth Visit [address] [place] [address] Encounter Date: 08/24/2021 Name: Michelle Gomez : 1985 PCP: Delonte Marin MD During this emergency period the patient has initiated this contact and has consented to a Telehealth visit with Delonte Farfan MD . Start Time End time Duration (minutes) 822am (Patient) Originating Location: home (Provider) Distant Location: [facility] Subjective: Michelle Gomez is a 36 y.o. female here for chief complaint of migraine headache. Interval history: See below. Review of Systems: Neurologic: No fever chills nausea vomiting diarrhea constipation shortness of breath or chest painlittle bit of night sweats at night with the nortriptyline perhaps. Objective: Physical Exam: General: No apparent distress Mental Status: Awake and alert. Normal speech Cranial Nerves: VII: No facial asymmetry Motor: No new motor deficits. Abnormal movements: none Coordination: No discoordination noted in the upper extremities. Assessment & Plan: No diagnosis found. Doing well with her headaches. Exercising is good for her running actually can compounds some of her neck and head issues but using her Peloton is been useful. She noticed that her headaches have been better during her . She had a little hypertension following was on some beta-stefanie. Tolerated it well. May have played some role in reducing her headaches. She has been able to get off of it now. She is doing pretty well overall with headaches. We will maintain the current dose of nortriptyline 30 mg at bedtime. Reiterated a number of nonpharmacologic measures useful reducing headache frequency and severity. She keeps advised of her progress. All in all she is doing great she went through a very stressful year 2019 with a modicum of headaches but nothing overt I think her current regimen is appropriate Iwill make no changes for now. Other options exist if necessary. Should keep us advised of her progress. Greater than 50% of today's visit was devoted to counseling and education. documented in this encounter Plan of Treatment Not on file documented as of this encounter Goals Goal Patient Goal Type Associated Problems Recent Progress Patient-Stated? Author Blood Pressure < 140/90 Blood Pressure 118/82(2024 10:05 AM QUALITY CONTROL TECH RAW MATERIALS) No Delonte Marin MD Use sunscreen daily Lifestyle No Divya Cr RN Frequent Skin Checks Lifestyle No Divya Cr RN documented as of this encounter Visit Diagnoses Diagnosis Migraine without status migrainosus, not intractable, unspecified migraine type- Primary documented in this encounter Additional Health Concerns Assessment Noted Time PHQ-9 Depression Total Score: 0 10/07/20 19 10:06 AM QUALITY CONTROL TECH RAW MATERIALS documented as of this encounter Care Teams Orthopedic Technician Relationship Specialty Start Date End Date Delonte Marin MD [address] [facility] [address] [place] [address] PCP - General Podiatry 08/23/15 documented as of this encounter
--- OUTSIDE RECORDS SUMMARY | 2024-11-30 10:15 | XMS_ITS | Encounter Summary ---
Author Organization [employer] Address [address] [place] [address] Care Team Providers Care Staff Services Manager Name Role Phone Delonte Marin MD Primary Care Provider [phone]- [phone] Encounter Details Date Type Department Care Team (Latest Contact Info) Description 09/19/2021 10:30 AM CDT Office Visit [address] [place] [address] Chloe Benson, [address] [address] Encounter for well woman exam with routine gynecological exam (Primary Dx); Chronic fatigue; Neck pain; Panic attacks; Obsessive-compulsive disorder, unspecified type; COVID-19 vaccination declined; Immunization counseling Social History Tobacco Use Types Packs/Day Years [...] have Coronavirus / COVID-19? No / Unsure 09/19/2021 10:41 AM CDT documented as of this encounter Last Filed Vital Signs Vital Sign Reading Time Taken Comments Blood Pressure 120/80 09/19/2021 10:43 AM CDT Pulse 100 09/19/2021 10:43 AM CDT Temperature 36.1 ??C (97 ??F) 09/19/2021 10:43 AM CDT Respiratory Rate - - Oxygen Saturation 99% 09/19/2021 10:43 AM CDT Inhaled Oxygen Concentration - - Weight 73.7 kg (162 lb 6.4 oz) 09/19/2021 10:43 AM CDT Height - - Body Mass Index 26.21 08/21/2021 9:20 AM CDT documented in this encounter Patient Instructions * Patient Instructions* Chloe Benson CNM - 09/19/2021 10:30 AM CDT Images from the original note were not included. Well Visit, Ages 18 to 50: Care Instructions Your Care Instructions Physical exams can help you stay healthy. Your doctor has checked your overall health and may have suggested ways to take good care of yourself. He or she also may have recommended tests. At home, you can help prevent illness with healthy eating, regular exercise, and other steps. Follow-up care is a galvez part of your treatment and safety. Be sure to make and go to all appointments, and call your doctor if you are having problems. It's also a good idea to know your test resultsand keep a list of the medicines you take. How can you care for yourself at home? ?? Reach and stay at a healthy weight. This will lower your risk for many problems, such as obesity, diabetes, heart disease, and high blood pressure. ?? Get at least 30 minutes of physical activity on most days of the week. Walking is a good choice.You also may want to do other activities, such as running, swimming, cycling, or playing tennis or team sports. Discuss any changes in your exercise program with your doctor. ?? Do not smoke or allow others to smoke around you. If you need help quitting, talk to your doctorabout stop-smoking programs and medicines. These can increase your chances of quitting for good. ?? Talk to your doctor about whether you have any risk factors for sexually transmitted infections (STIs). Having one sex partner (who does not have STIs and does not have sex with anyone else) is a good way to avoid these infections. ?? Use control if you do not want to have children at this time. Talk with your doctor about the choices available and what might be best for you. ?? Protect your skin from too much sun. When you're outdoors from 10 a.m. to 4 p.m., stay in the shade or cover up with clothing and a hat with a wide brim. Wear sunglasses that block UV rays. Even when it's cloudy, put broad-spectrum sunscreen (SPF 30 or higher) on any exposed skin. ?? See a dentist one or two times a year for checkups and to have your teeth cleaned. ?? Wear a seat belt in the car. ?? Drink alcohol in moderation, if at all. That means no more than 2 drinks a day for men and 1 drink a day for women. Follow your doctor's advice about when to have certain tests. These tests can spot problems early. For everyone ?? Cholesterol. Have the fat (cholesterol) in your blood tested after age 20. Your doctor will tellyou how often to have this done based on your age, family history, or other things that can increase your risk for heart disease. ?? Blood pressure. Have your blood pressure checked during a routine doctor visit. Your doctor willtell you how often to check your blood pressure based on your age, your blood pressure results, andother factors. ?? Vision. Talk with your doctor about how often to have a glaucoma test. ?? Diabetes. Ask your doctor whether you should have tests for diabetes. ?? Colon cancer. Have a test for colon cancer at age 50. You may have one of several tests. If you are younger than 50, you may need a test earlier if you have any risk factors. Risk factors include whether you already had a precancerous polyp removed from your colon or whether your parent, brother, sister, or child has had colon cancer. For women ?? Breast exam and mammogram. Talk to your doctor about when you should have a clinical breast examand a mammogram. Medical experts differ on whether and how often women under 50 should have these tests. Your doctor can help you decide what is right for you. ?? Pap test and pelvic exam. Begin Pap tests at age 21. A Pap test is the best way to find cervicalcancer. The test often is part of a pelvic exam. Ask how often to have this test. ?? Tests for sexually transmitted infections (STIs). Ask whether you should have tests for STIs. You may be at risk if you have sex with more than one person, especially if your partners do not wear condoms. For men ?? Tests for sexually transmitted infections (STIs). Ask whether you should have tests for STIs. You may be at risk if you have sex with more than one person, especially if you do not wear a condom. ?? Testicular cancer exam. Ask your doctor whether you should check your testicles regularly. ?? Prostate exam. Talk to your doctor about whether you should have a blood test (called a PSA test) for prostate cancer. Experts differ on whether and when men should have this test. Some experts suggest it if you are older than 45 and are -[place] or have a father or brother who got prostate cancer when he was younger than 65. When should you call for help? Watch closely for changes in your health, and be sure to contact your doctor if you have any problems or symptoms that concern you. Where can you learn more? Go to the Search Health Library box on [employer] [email or web address] by clicking on the magnifying glass tab. Enter P072 in the search box to learn more about Well Visit, Ages 18 to 50: Care Instructions. Not on [employer]? Go to [email or web address] and click the Sign Up Now linkto request an activation code. Current as of: March 29, 2017 Content Version: 11.4 ?? 7522-8321 [employer]. Care instructions adapted under license by your healthcare professional. This care instruction is for use with your licensed healthcare professional. If you have questions about a medical condition or this instruction, always ask your healthcare professional. [facility], [employer] disclaims any warranty or liability for your use of this information. ?? documented in this encounter Progress Notes * Chloe Benson CNM - 09/19/2021 10:30 AM CDT [address] [facility] [address] Dept: [phone] Dept Loc: [phone] Loc Date: 09/19/2021 Name: Michelle Gomez : 1985 PCP: Delonte Marin MD Subjective: Patient ID: Michelle Gomez is a 36 y.o. female No chief complaint on file. HPI Her last gynecological exam was- 2019 Her last Pap smear was 2018 and negative co-test; ? History abnormal pap without treatment when shewas 20-paps normal since-she requested one today No LMP recorded.Monthly Sexually active: Yes Change in partners: No Her current method of contraception is condoms-Wonders if will have sperm after his stem cell for leukemia She does perform self breast exams. She is still nursing her one year old. Her last mammogram was -not a candidate. Caffeine intake is 1 daily coffee She is not a current smoker Her last colonoscopy was-not a candidate She would not like to receive the flu or covid immunization. Review of Systems Constitutional: Positive for fatigue (Has both chronic fatigue and her one year old is nursing and not sleeping through the night). Negative for chills, fever and unexpected weight change. HENT: Negative for congestion, dental problem, ear pain, hearing loss, nosebleeds, rhinorrhea, sorethroat, tinnitus and trouble swallowing. Eyes: Negative for photophobia, pain and discharge. Respiratory: Negative for cough, shortness of breath and wheezing. Cardiovascular: Negative for chest pain and palpitations. She had BP elevation after her delivery and was on labetalol but is now off medication and BP todaywas normal. She denies pre-eclampsia. Gastrointestinal: Negative for abdominal distention, abdominal pain, blood in stool, constipation and diarrhea. Endocrine: Negative for heat intolerance. Genitourinary: Negative for dyspareunia, dysuria, frequency, genital sores, menstrual problem and vaginal discharge. Musculoskeletal: Negative for arthralgias, back pain and myalgias. She has cervical bulging discs but neck pain has been controlled with seeing a chiropractor. Neurological: Positive for headaches (Nortiptyline daily working well. Has Rx for imitrex.Follows with Dr. Farfan). Negative for dizziness, tremors, seizures, syncope and weakness. Hematological: Does not bruise/bleed easily. Psychiatric/Behavioral: Negative for sleep disturbance and suicidal ideas. The patient is nervous/anxious (She has OCD and panic attacks but panic attacks are rare and short lived). Past Medical History: Past Medical History: Diagnosis Date ??? Carpal tunnel syndrome Neck disc problems.Sees chiropractor and Celebrex ??? Cervical spondylosis 12/21/2019 ??? Migraines Saw Adolph. Uses Imitrex and nortriptyline. Less migraines since Mirena out. ??? Panic attack Has panic attacks and OCD Surgical History: Past Surgical History: Procedure Laterality Date ??? Carpal tunnel release Left 09/12/2015 Left hand carpal tunnel release./Starr ??? Carpal tunnel release Right 10/24/2015 Right hand carpal tunnel release./Starr ??? Foot surgery Left bunionectomy Family History: Family History Problem Relation Age of Onset ??? Diabetes Paternal Grandmother ??? Diabetes Paternal Grandfather ??? Celiac disease Mother ??? Migraines Father ??? Cancer Neg Hx ??? Heart disease Neg Hx Social History: Social History Socioeconomic History ??? Marital status: Spouse name: Baldo ??? Number of children: 2 ??? Years of education: Not on file ??? Highest education level: Not on file Occupational History ??? 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 Smoking status: Never Smoker ??? Smokeless tobacco: Never Used Vaping Use ??? Vaping Use: Never used Substance and Sexual Activity ??? Alcohol use: No Alcohol/week: 0.0 standard drinks ??? Drug use: No ??? Sexual activity: Yes Partners: Male control/protection: None, Rhythm, Condom Comment: Mirena inserted and removed 10-23-2018 Other Topics Concern ??? Adopted No ??? Service Not Asked ??? Are you having sex? Yes ??? Bike Helmet Yes ??? Are you trying to get ? No ??? Occupational Exposure Not Asked ??? Caffeine Use Yes ??? Other Not Asked ??? Exercise Yes ??? Seat Belt/Car Seat Yes ??? Hobbies Not Asked ??? Special Diet Not Asked ??? Living Arrangement Not Asked ??? Postmenopausal? (if yes, comment age at menopause) Not Asked Social History Narrative ??? Not on file Social Determinants of Health Financial Resource Strain: Not on file Food Insecurity: Not on file Transportation Needs: Not on file Physical Activity: Not on file Stress: Not on file Social Connections: Not on file Intimate Partner Violence: Not on file Housing Stability: Not on file Problem List Patient Active Problem List Diagnosis ??? Seborrheic keratoses ??? Neck pain ??? Cervicocranial syndrome of cervical region ??? Cervical spondylosis ??? Visual changes ??? Ophthalmic migraine ??? Chronic fatigue ??? Essential hypertension ??? Myalgia ??? Panic attacks ??? OCD (obsessive compulsive disorder) Immunizations Immunization History Administered Date(s) Administered ??? Tdap 06/30/2020 Allergies: Augmentin [amoxicillin-pot clavulanate] Medication List magnesium 200 MG TABS tablet nortriptyline (PAMELOR) 10 MG capsule SUMAtriptan succinate (IMITREX) 100 MG tablet tazarotene (AVAGE) 0.1 % cream ALPRAZolam (Xanax) 0.25 MG tablet No current facility-administered medications for this visit. Objective: Blood pressure 120/80, pulse 100, temperature 36.1 ??C (97 ??F), weight 73.7 kg (162 lb 6.4 oz), SpO2 99 %., Body mass index is 26.21 kg/m??. Physical Exam Vitals reviewed. Constitutional: General: She is not in acute distress. Appearance: She is well-developed. HENT: Right Ear: External ear normal. Left Ear: External ear normal. Nose: Nose normal. Mouth/Throat: Pharynx: No oropharyngeal exudate. Eyes: General: Right eye: No discharge. Left eye: No discharge. Conjunctiva/sclera: Conjunctivae normal. Pupils: Pupils are equal, round, and reactive to light. Neck: Thyroid: No thyromegaly. Cardiovascular: Rate and Rhythm: Normal rate and regular rhythm. Heart sounds: Normal heart sounds. No murmur heard. Pulmonary: Effort: Pulmonary effort is normal. No respiratory distress or retractions. Breath sounds: Normal breath sounds. No wheezing or rales. Chest: Chest wall: No mass, deformity, tenderness or edema. Breasts: Right: No inverted nipple, mass, nipple discharge, skin change or tenderness. Left: No inverted nipple, mass, nipple discharge, skin change or tenderness. Abdominal: General: Bowel sounds are normal. There is no distension. Palpations: Abdomen is soft. There is no mass. Tenderness: There is no abdominal tenderness. There is no guarding or rebound. Hernia: No hernia is present. Genitourinary: General: Normal vulva. Exam position: Lithotomy position. Vagina: Normal. No vaginal discharge. Cervix: Normal. Uterus: Normal. Adnexa: Right adnexa normal and left adnexa normal. Rectum: Normal. Comments: Co-test sent; declines cervical cultures; uterus anteverted; good return on Kegel's. Musculoskeletal: General: No tenderness. Normal range of motion. Cervical back: Normal range of motion and neck supple. Lymphadenopathy: Cervical: No cervical adenopathy. Skin: General: Skin is dry. Coloration: Skin is not pale. Findings: No erythema or rash. Comments: Scattered freckles with some sun damage. Freckle in perineal area does not look worrisome. Neurological: Mental Status: She is alert and oriented to person, place, and time. Psychiatric: Attention and Perception: Attention and perception normal. Mood and Affect: Mood and affect normal. Speech: Speech normal. Behavior: Behavior normal. Thought Content: Thought content normal. Cognition and Memory: Cognition and memory normal. Judgment: Judgment normal. Comments: PHQ 2=0. She is bothered by OCD and panic attacks. Assessment: 1. Encounter for well woman exam with routine gynecological exam - Liquid-Based Pap Specimen; Future 2. Chronic fatigue 3. Neck pain 4. Panic attacks 5. Obsessive-compulsive disorder, unspecified type 6. COVID-19 vaccination declined 7. Immunization counseling Requested Prescriptions Signed Prescriptions Disp Refills ??? ALPRAZolam (Xanax) 0.25 MG tablet 30 tablet 0 Sig: Take 1 (one) tablet by mouth nightly as needed for Anxiety. Plan: Will call pap results and treat accordingly. She is still nursing her one year old and doing well but he is not sleeping through the night which causes fatigue along with she already had chronic fatigue. Her OCD causes her to stay up to clean before she can relax. She used zoloft in the past but didn't help. Some suggestions reviewed. She is also bothered by rare brief panic attacks. We discussedrisk versus benefit with the use of rare xanax. I discussed it is listed as a L3. She would like totry an occasional xanax instead of a daily medication. Counseling offered. MVI and Vit D3 encouraged. She declines control besides condoms. Her might get a vasectomy or she will just kristin ck his sperm count with an on-line kit. He had a stem cell transplant for leukemia and he is doing well. She did not like her IUD in the past. Menses are controlled. Her neck pain is better and she follows with a chiropractor. She will be getting body mapping with a payroll clerk. She has scatteredfreckles. She declines flu and Covid immunization. Questions and concerns addressed and she verbalized understanding. Next Visit: Follow up in about 1 year (around 09/19/2022), or if symptoms worsen or fail to improve,for Annual. Encounter of: 09/19/2021 Signed: Chloe Benson CNM 09/19/2021 12:21 PM documented in this encounter Plan of Treatment Scheduled Orders Name Type Priority Associated Diagnoses Orde r Schedule Liquid-Based Pap Specimen Pathology and Cytology Routine Encounter for well woman exam with routine gynecological exam Expected: 09/19/2021, Expires: 10/19/2021 documented as of this encounter Goals Goal Patient Goal Type Associated Problems Recent Progress Patient-Stated? Author Blood Pressure < 140/90 Blood Pressure 118/82(2024 10:05 AM OUTREACH SPECIALIST) No Delonte Marin MD Use sunscreen daily Lifestyle No Divya Cr, RN Frequent Skin Checks Lifestyle No Divya Cr, RN documented as of this encounter Visit Diagnoses Diagnosis Encounter for well woman exam with routine gynecological exam- Primary Chronic fatigue Other malaise and fatigue Neck pain Cervicalgia Panic attacks Panic disorder without agoraphobia Obsessive-compulsive disorder, unspecified type COVID-19 vaccination declined Immunization counseling documented in this encounter Additional Health Concerns Assessment Noted Time PHQ-9 Depression Total Score: 0 10/07/20 10:06 AM OUTREACH SPECIALIST documented as of this encounter Care Teams Staff Services Manager Relationship Specialty Start Date End Date Delonte Marin MD [address] [facility] [address] [place], [place] [id number] PCP - General Podiatry 08/23/15 documented as of this encounter
--- OUTSIDE RECORDS SUMMARY | 2024-11-30 10:15 | XMS_ITS | Encounter Summary ---
Author Organization [employer] Address [address] [place] [address] Care Team Providers Care Carpet Measurer Name Role Phone Delonte Marin MD Primary Care Provider +1- [phone] Reason for Visit * Reason Comments Skin Check Encounter Details Date Type Department Care Team (Late st Contact Info) Description 09/22/2021 11:30 AM CDT Office Visit [facility] Dermatology [address] [place] [phone] Juany Hurst MD [address] [place] [phone] Disturbance of skin sensation (Primary Dx); Flat wart; Viral warts, unspecified type; Tan angioma; Nevus; Diffuse photodamage of skin Social History Tobacco Use Types Packs/Day Years [...] have Coronavirus / COVID-19? No / Unsure 09/22/2021 11:33 AM CDT documented as of this encounter Progress Notes * Juany Hurst MD - 09/22/2021 11:30 AM CDT CHIEF COMPLAINT: Full body skin exam due to lesions of concern and history of significant ultraviolet exposure. HISTORY OF PRESENT ILLNESS: Michelle Gomez is a very pleasant 36 y.o. female presenting to clinic for the above concern. ?? The patient has multiple skin lesions of concern. ?? They are located on the head, trunk and extremities. ?? Lesions are of variable color and texture. ?? Duration of lesions present is for months to years. ?? Symptoms include none. ?? Aggravating/alleviating factors include: None. REVIEW OF SYSTEMS: no weight loss, fever, night sweats and feels well negative with no mouth dryness or sores PAST DERMATOLOGIC HISTORY: Past Medical History: Diagnosis Date ??? Carpal tunnel syndrome Neck disc problems.Sees chiropractor and Celebrex ??? Cervical spondylosis 12/21/2019 ??? Migraines Saw Primitivohillary. Uses Imitrex and nortriptyline. Less migraines since Mirena out. ??? Panic attack Has panic attacks and OCD PROBLEM LIST: Patient Active Problem List Diagnosis ??? Seborrheic keratoses ??? Neck pain ??? Cervicocranial syndrome of cervical region ??? Cervical spondylosis ??? Visual changes ??? Ophthalmic migraine ??? Chronic fatigue ??? Essential hypertension ??? Myalgia ??? Panic attacks ??? OCD (obsessive compulsive disorder) FAMILY HISTORY: Negative for malignant melanoma in family members. 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 ALPRAZolam (Xanax) 0.25 MG tablet, 0 ??? magnesium 200 MG [...] Digits, fingernails and toenails Pertinent findings include: sun damaged skin with signs of photoaging in a sun- exposed distribution. Bright tan red papules on the trunk and extremities.Small benign appearing nevi throughout. 3 inflamed, verrucous papules to the face and left thigh. Multiple verrucous papules to the hands. RESULTS REVIEW: prior medical documents IMPRESSION & PLAN: Warts, painful. Treatment options were reviewed with the patient including observation, home therapy with OTC salicylic acid, treatment with rx compounded WartPeel, or in- office procedures such as destruction with cryotherapy/cantharone or immunotherapy with [place] Bri. Patient elected to proceed with cryotherapy. Flat warts. Continue Tazorac 0.1% cream nightly, refills sent. Sun damaged skin. Photoprotection was emphasized and reviewed. I advise an SPF 30+ sunscreen to all exposed areas on a daily basis. AAD skin cancer handout was reviewed, noting warning signs of skin cancer. Tan angiomas. The benign nature of the [...] return visit for reassessment. DISPOSITION: Follow up in 1 year, or sooner should symptoms worsen. Juany Hurst MD Department of Dermatology [facility] documented in this encounter Plan of Treatment Not on file documented as of this encounter Goals Goal Patient Goal Type Associated Problems Recent Progress Patient-Stated? Author Blood Pressure < 140/90 Blood Pressure 118/82(2024 10:05 AM LADIES LOCKER ROOM ATTENDANT) No Delonte Marin MD Use sunscreen daily Lifestyle No Divya Cr RN Frequent Skin Checks Lifestyle No Divya Cr RN documented as of this encounter Visit Diagnoses Diagnosis Disturbance of skin sensation- Primary Flat wart Other specified viral warts Viral warts, unspecified type Tan angioma Nevus, non-neoplastic Nevus Benign neoplasm of skin, site unspecified Diffuse photodamage of skin Other chronic dermatitis due to solar radiation documented in this encounter Additional Health Concerns Assessment Noted Time PHQ-9 Depression Total Score: 0 10/07/20 19 10:06 AM LADIES LOCKER ROOM ATTENDANT documented as of this encounter Care Teams Carpet Measurer Relationship Specialty [place] [address] [place] [address] [address] [place] [address] PCP - General Podiatry 08/23/15 documented as of this encounter
--- OUTSIDE RECORDS SUMMARY | 2024-11-30 10:15 | XMS_ITS | Encounter Summary ---
Author Organization [employer] [facility] Address [address] [place], [place] [id number] Care Team Providers Care Cane Flume Watchman Name Role Phone Delonte Marin MD Primary Care Provider +1- [phone] Encounter Details Date Type Department Care Team (Latest Contact Info) Description 09/19/2021 Travel Social History Tobacco Use Types Packs/Day [...] AM CDT documented as of this encounter Plan of Treatment Not on file documented as of this encounter Goals Goal Patient Goal Type Associated Problems Recent Progress Patient-Stated? Author Blood Pressure < 140/90 Blood Pressure 118/82(2024 10:05 AM QUILTING SUPERVISOR) No Delonte Marin MD Use sunscreen daily Lifestyle No Divya Cr, RN Frequent Skin Checks Lifestyle No Divya Cr, RN documented as of this encounter Visit Diagnoses Not on filedocumented in this encounter Additional Health Concerns Assessment Noted Time PHQ-9 Depression Total Score: 0 10/07/20 10:06 AM QUILTING SUPERVISOR documented as of this encounter Care Teams Cane Flume Watchman Relationship Specialty Start Date End Date Delonte Marin MD [address] [facility] [address] [place] [address] PCP - General Podiatry 08/23/15 documented as of this encounter
--- OUTSIDE RECORDS SUMMARY | 2024-11-30 10:15 | XMS_ITS | Encounter Summary ---
Author Organization [employer] Address [address] [place] [address] Care Team Providers Care Varnish Filterer Name Role Phone Delonte Marin MD Primary Care Provider +1- [phone] Encounter Details Date Type Department Care Team (Latest Contact Info) Description 09/19/2021 10:30 AM CDT - 09/19/2021 11:59 PM CDT Hospital Encounter [facility] [address] [place] [id number] Encounter for well woman exam with routine gynecological exam Discharge Disposition: Home - Discharge to Home [...] AM CDT documented as of this encounter Medications at Time of Discharge ALPRAZolam (Xanax) 0.25 MG tablet Take 1 (one) tablet by mouth nightly as needed for Anxiety. 30 tablet 09/19/2021 2 magnesium 200 MG TABS tablet Take 1 (one) tablet by mouth daily. 4 nortriptyline (PAMELOR) 10 MG capsuleIndication s:Chronic migraine without aura without status migrainosus, not intractable Take 3 capsules by mouth nightly. 270 capsule 08/23/2021 2 SUMAtriptan succinate (IMITREX) 100 MG tabletIndications :Migraine without aura and without status migrainosus, not intractable Take 1 tablet by mouth as needed for Migraine. MAX 2 per day. 9 tablet 5 01/12/2021 3 tazarotene (AVAGE) 0.1 % creamIndications: Flat wart Apply nightly to the hands. 60 g 1 05/09/2021 1 documented as of this encounter Plan of Treatment Scheduled Orders Name Type Priority Associated Diagnoses Orde r Schedule Liquid-Based Pap Specimen Pathology and Cytology Routine Encounter for well woman exam with routine gynecological exam Once for 1 Occurrences starting 09/19/2021 until 09/19/2021 documented as of this encounter Goals Goal Patient Goal Type Associated Problems Recent Progress Patient-Stated? Author Blood Pressure < 140/90 Blood Pressure 118/82(2024 10:05 AM CARPET INSPECTOR FINISHED) No Delonte Marin MD Use sunscreen daily Lifestyle No Divya Cr RN Frequent Skin Checks Lifestyle No Divya Cr, SAMIA documented as of this encounter Procedures Procedure Name Priority Date/Time Associated Diagnosis Comments LIQUID-BASED PAP SPECIMEN Routine 09/19/2021 10:30 AM CDT HPV HIGH RISK SCREEN BY PCR Routine 09/19/2021 10:30 AM CDT documented in this encounter Results * HPV High Risk Screen by PCR (09/19/2021 10:30 AM CDT) HPV Genotype 16 NEG NEG 11:40 AM CDT [employer] ZUNI HPV Genotype 18 NEG NEG 11:40 AM CDT [employer] ZUNI HPV High Risk Screen NEG NEG 09/22/2021 11:40 AM CDT [employer] - ZUNI Comment: ---- The Darren Chucho HPV Genotype [...] established for HPV vaccinated individuals. Specimen Type [id number] 09/20/2021 10:20 AM CDT [employer] ZUNI Comment:Performed at [facility], [address] [place] [place] [address], ([phone], unless otherwise noted. Serum 09/19/2021 10:3 0 AM CDT 09/20/2021 10:19 AM CDT Chloe Núñez [facility] MICROBIOLOGY - GENERAL ORD ERABLES Final Result [facility] [email or web address] [facility] [address] [place], [place] [phone] [employer] ZUNI [address] [place] [address] * Liquid-Based Pap Specimen (09/19/2021 10:30 AM CDT) 09/19/2021 10:3 0 AM CDT 09/19/2021 Narrative [facility] [email or web address] PATH [facility] - 09/25/2021 2:17 PM CARPET INSPECTOR FINISHED CASE: [id number] PATIENT: MICHELLE GOMEZ Patient: MICHELLE GOMEZ ?Location: Age: 36 ?Birthdate: 1985 ?Sex: F Submitted By: CHLOE NÚÑEZ Copies To: KATRIN ??[facility] Gynecological Cytology Date Collected: 09/19/2021 10:30:00 AM [...] results Technical and diagnostic services performed at [facility], [address] [place] [address] Final Diagnosis performed by Addis Bell Electronically signed 09/25/2021 1:23:06PM us Chloe Núñez CNM PATHOLOGY/CYTOLOGY ORDERAB LES Final Result [facility] PATH LAB [place], [place] documented in this encounter Visit Diagnoses Diagnosis Encounter for well woman exam with routine gynecological exam documented in this encounter Additional Health Concerns Assessment Noted Time PHQ-9 Depression Total Score: 0 10/07/20 19 10:06 AM CARPET INSPECTOR FINISHED documented as of this encounter Care Teams Varnish Filterer Relationship Specialty Start Date End Date Delonte Marin MD [address] [facility] [address] [place] [address] PCP - General Podiatry 08/23/15 documented as of this encounter
--- OUTSIDE RECORDS SUMMARY | 2024-11-30 10:15 | XMS_ITS | Encounter Summary ---
Author Organization [employer] [facility] Address [address] [place], [place] [address] Care Team Providers Care Organic Preparation Technician Name Role Phone Delonte Marin MD Primary Care Provider +1- [phone] Encounter Details Date Type Department Care Team (Latest Contact Info) Description 08/21/2021 Travel Social History Tobacco Use Types Packs/Day [...] < 140/90 Blood Pressure 118/82(2024 10:05 AM TIE WORKER) No Delonte Marin MD Use sunscreen daily Lifestyle No Divya Cr, RN Frequent Skin Checks Lifestyle No Divya Cr, RN documented as of this encounter Visit Diagnoses Not on filedocumented in this encounter Additional Health Concerns Assessment Noted Time PHQ-9 Depression Total Score: 0 10/07/20 10:06 AM TIE WORKER documented as of this encounter Care Teams Organic Preparation Technician Relationship Specialty Start Date End Date Delonte Marin MD [address] [facility] [address] [place] [address] PCP - General Podiatry 08/23/15 documented as of this encounter
--- OUTSIDE RECORDS SUMMARY | 2024-11-30 10:15 | XMS_ITS | Encounter Summary ---
Author Organization [employer] Address [address] [place] [address] Care Team Providers Care Lead Cytogenetic Technologist Name Role Phone Delonte Marin MD Primary Care Provider +1- [phone] Reason for Visit * Reason Comments Cosmetic Encounter Details Date Type Department Care Team ([facility] st Contact Info) Description 12/22/2021 9:30 AM HOTEL SERVICE MANAGER Treatment [facility] Dermatology [address] [place] [address] Tiffany Mobley MA [address] [place] [address] Social History Tobacco Use Types [...] COVID-19? No / Unsure 12/22/2021 9:35 AM HOTEL SERVICE MANAGER documented as of this encounter Progress Notes * Tiffany Mobley MA - 12/22/2021 9:30 AM CST Pt here for hair reduction to Inner thigh and underarms . Skin type 2. Procedure discussed with patient. Consent signed. Skin cleansed with alcohol. Clear ultrasound gel applied to treatment area. Settings 24mj, short pulse. Patient tolerated well. Post procedure instructions given to patient and patient verbalized understanding. RTC in 4-6 weeks or prn. $100 inner thigh and $100 for underarms. Kevin LE L SERVICE MANAGER documented in this encounter Plan of Treatment Not on file documented as of this encounter Goals Goal Patient Goal Type Associated Problems Recent Progress Patient-Stated? Author Blood Pressure < 140/90 Blood Pressure 118/82(2024 10:05 AM HOTEL SERVICE MANAGER) No Delonte Marin MD Use sunscreen daily Lifestyle No Divya Cr, RN Frequent Skin Checks Lifestyle No Divya Cr, RN documented as of this encounter Visit Diagnoses Not on filedocumented in this encounter Additional Health Concerns Assessment Noted Time PHQ-9 Depression Total Score: 0 10/07/20 19 10:06 AM HOTEL SERVICE MANAGER documented as of this encounter Care Teams Lead Cytogenetic Technologist Relationship Specialty Start Date End Date Delonte Marin MD [address] [facility] [address] [place] [address] PCP - General Podiatry 08/23/15 documented as of this encounter
--- OUTSIDE RECORDS SUMMARY | 2024-11-30 10:15 | XMS_ITS | Encounter Summary ---
Author Organization [facility] [place] [facility] Address [address] [place], [place] [address] Care Team Providers Care Territory Sales Executive Name Role Phone Delonte Marin MD Primary Care Provider +1- [phone] Encounter Details Date Type Department Care Team (Latest Contact Info) Description 09/22/2021 Travel Social History Tobacco Use Types Packs/Day [...] < 140/90 Blood Pressure 118/82(2024 10:05 AM SLATE PICKER) No Delonte Marin MD Use sunscreen daily Lifestyle No Divya Cr, RN Frequent Skin Checks Lifestyle No Divya Cr, RN documented as of this encounter Visit Diagnoses Not on filedocumented in this encounter Additional Health Concerns Assessment Noted Time PHQ-9 Depression Total Score: 0 10/07/20 10:06 AM SLATE PICKER documented as of this encounter Care Teams Territory Sales Executive Relationship Specialty Start Date End Date Delonte Mairn MD [address] [facility] [address] [place] [address] PCP - General Podiatry 08/23/15 documented as of this encounter
--- OUTSIDE RECORDS SUMMARY | 2024-11-30 10:15 | XMS_ITS | Encounter Summary ---
Author Organization [employer] Address [address] [place] [address] Care Team Providers Care Disk Sharpener Name Role Phone Delonte Marin MD Primary Care Provider +1- [phone] Reason for Visit * Reason Comments Follow-up Encounter Details Date Type Department Care Team ([facility] st Contact Info) Description 10/30/2021 8:00 AM MEDICAL RADIATION TECH Office Visit [facility] Dermatology [address] [place] [phone] Juany Hurst MD [address] [place] [address] Verruca plana (Primary Dx); Irritant dermatitis; Callus of foot; Inflamed seborrheic keratosis Social History Tobacco Use [...] COVID-19? No / Unsure 10/30/2021 8:06 AM MEDICAL RADIATION TECH documented as of this encounter Progress Notes * Juany Hurst MD - 10/30/2021 8:00 AM CST CHIEF COMPLAINT: Follow-up HISTORY OF PRESENT ILLNESS: Michelle Gomez is a very pleasant 36 y.o. female presenting to clinic for follow up of flat warts. The patient was last seen in Dermatology 09/2021. The patient is worsened.- she believes the cream has now given her a rash. Current treatment consists of tazorac nightly. Patient is tolerating the treatment poorly. Side effects of treatment include none. She has a spot of concern on the left nondenominational She tried urea cream for her feet for several weeks but didn't find that it resolved the thickened scaly skin. She does also wish to address a small roque papule to the Left post auricular. REVIEW OF SYSTEMS: Negative except as noted in HPI. PROBLEM LIST: Patient Active Problem List Diagnosis ??? Seborrheic keratoses ??? Neck pain ??? Cervicocranial syndrome of cervical region ??? Cervical spondylosis ??? Visual changes ??? Ophthalmic migraine ??? Chronic fatigue ??? Essential hypertension ??? Myalgia ??? Panic attacks ??? 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 Patient wears sunscreen: As needed. MEDICATIONS: ??? ALPRAZolam (Xanax) 0.25 MG tablet, 0 ??? cefUROXime (CEFTIN) 500 MG tablet, 0 ??? magnesium 200 MG [...] type II. Skin examination included the following: Head Neck Right lower extremity Left lower extremity Digits, fingernails and toenails Pertinent findings include: Calloused feet. Dermatitis with flat warts to the hands. Inflamed waxy roque papule to left nondenominational. Postauricular lymphadenopathy on the left side. RESULTS REVIEW: Prior medical documents. IMPRESSION & PLAN: 1. Flat warts, with side effect of treatment. Continue Tazorac nightly Recommend applying a thick layer of cetaphil cream over top to minimize irritation Discussed that likely the use of it in the winter with frequent hand washing has exacerbated the irritation. 2. Inflamed seborrheic keratoses. Potential adverse effects of treatment including but not limited to localized redness, blistering, postinflammatory hyperpigmentation, infection, and wound were reviewed carefully with the patient who consented to proceed with treatment. Subsequently, 1 lesion was treated with liquid nitrogen cryotherapy today. Wound care reviewed. 3. Calluses and fissures, not responsive to prior therapy. Recommend continuing Urea 40% cream nightly indefinitely for better improvement but also consider using a product with urea and salicylic acid combined for possible additional benefit. 4. Lymphadenopathy Likely viral; if not resolved in 4-6 weeks will order an ultrasound. DISPOSITION: Follow up as needed. Juany Hurst MD Department of Dermatology [facility] CAL RADIATION TECH documented in this encounter Plan of Treatment Not on file documented as of this encounter Goals Goal Patient Goal Type Associated Problems Recent Progress Patient-Stated? Author Blood Pressure < 140/90 Blood Pressure 118/82(2024 10:05 AM MEDICAL RADIATION TECH) No Delonte Marin MD Use sunscreen daily Lifestyle No Divya Cr RN Frequent Skin Checks Lifestyle No Divya Cr RN documented as of this encounter Visit Diagnoses Diagnosis Verruca plana- Primary Other specified viral warts Irritant dermatitis Contact dermatitis and other eczema, due to unspecified cause Callus of foot Corns and callosities Inflamed seborrheic keratosis documented in this encounter Additional Health Concerns Assessment Noted Time PHQ-9 Depression Total Score: 0 10/07/20 19 10:06 AM MEDICAL RADIATION TECH documented as of this encounter Care Teams Disk Sharpener Relationship Specialty Start Date End Date Delonte Marin MD [address] [facility] [address] [place] [address] PCP - General Podiatry 08/23/15 documented as of this encounter
--- OUTSIDE RECORDS SUMMARY | 2024-11-30 10:15 | XMS_ITS | Encounter Summary ---
Author Organization [employer] Address [address] [place] [address] Care Team Providers Care Store Standards Associate Name Role Phone Delonte Marin MD Primary Care Provider +1- [phone] Encounter Details Date Type Department Care Team (Latest Contact Info) Description 08/21/2021 9:55 AM CDT - 08/21/2021 11:59 PM CDT Hospital Encounter [facility] [address] [place] [id number] Chronic fatigue Discharge Disposition: Home - Discharge to Home [...] this encounter Medications at Time of Discharge magnesium 200 MG TABS tablet Take 1 (one) tablet by mouth daily. nortriptyline (PAMELOR) 10 MG capsuleIndication s:Chronic migraine without aura without status migrainosus, not intractable Take 3 capsules by mouth nightly. Needs to schedule appointment with Dr. Farfan for further refills. 270 capsule 06/21/2021 1 SUMAtriptan succinate (IMITREX) 100 MG tabletIndications :Migraine [...] < 140/90 Blood Pressure 118/82(2024 10:05 AM CADDIE SUPERVISOR) No Delonte Marin MD Use sunscreen daily Lifestyle No Divya Cr RN Frequent Skin Checks Lifestyle No Divya Cr RN documented as of this encounter Procedures Procedure Name Priority Date/Time Associated Diagnosis Comments CBC AND DIFFERENTIAL Routine 08/21/2021 9:59 AM CDT TSH Routine 08/21/2021 9:55 AM CDT Chronic fatigue documented in this encounter Results * CBC and differential (08/21/2021 9:59 AM CDT) WBC 5.61 4.00 - 11.00 10*3/uL 08/21/2021 3:33 PM [facility] RBC 4.21 3.80 - 5.80 10*6/uL 08/21/2021 3:33 PM [facility] HGB 12.3 11.5 - 16.5 g/dL 08/21/2021 3:33 PM [facility] HCT 37.3 37.0 - 47.0 % 08/21/2021 3:33 PM [facility] MCV 88.6 76 - 99 fL 08/21/2021 3:33 PM [facility] MCH 29.2 27.0 - 32.0 pg 08/21/2021 3:33 PM [facility] MCHC 33.0 30.0 - 35.0 g/dL 08/21/2021 3:33 PM [facility] Platelets 232 135 - 470 10*3/uL 08/21/2021 3:33 PM [facility] RDW-CV 12.0 11.0 - 17.0 % 08/21/2021 3:33 PM [facility] MPV 11.6 8.0 - 12.5 fL 08/21/2021 3:33 PM [facility] Differential Type AUTOMATED DIFFERENTIAL 08/21/2021 3:33 PM [facility] Neutrophil % 63.3 45.0 - 75.0 % 08/21/2021 3:33 PM [facility] Lymphocytes % 23.7 20.0 - 45.0 % 08/21/2021 3:33 PM [facility] Monocyte % 8.0 0.0 - 10.0 % 08/21/2021 3:33 PM [facility] Eosinophils Relative % 3.9 0.0 - 5.0 % 08/21/2021 3:33 PM [facility] Basophils % 0.9 0.0 - 2.0 % 08/21/2021 3:33 PM [facility] Immature Granulocytes% 0.2 0.0 - 1.6 % 08/21/2021 3:33 PM [facility] Neutrophils Absolute 3.55 2.00 - 7.90 10*3/uL 08/21/2021 3:33 PM [facility] Lymphocytes Absolute 1.33 1.00 - 4.00 10*3/uL 08/21/2021 3:33 PM [facility] Monos Absolute 0.45 0.00 - 0.80 10*3/uL 08/21/2021 3:33 PM [facility] Eosinophils Absolute Count 0.22 0.00 - 0.40 10*3/uL 08/21/2021 3:33 PM [facility] Basophils Absolute 0.05 0.00 - 0.10 10*3/uL 08/21/2021 3:33 PM CDT [facility] Immature Granulocytes Absolute 0.01 0.0 - 0.20 10*3/uL 08/21/2021 3:33 PM [facility] Serum 08/21/2021 9:59 AM CDT 08/21/2021 3:21 PM CDT us Delonte Marin MD LAB BLOOD ORDERABLES Final Result [facility] [address] [place], [place] [phone] [facility] [address] [place] [address] * TSH (08/21/2021 9:55 AM CDT) TSH 1.23 0.36 - 3.74 m[IU]/L 08/21/2021 1:05 PM [facility] Serum 08/21/2021 9:55 AM CDT 08/21/2021 12:01 PM CDT us Delonte Marin MD LAB BLOOD ORDERABLES Final Result Performing Organization Address City/[facility] Co de Phone Number [facility] [address] [place], [place] [phone] [facility] [address] [place] [address] documented in this encounter Visit Diagnoses Diagnosis Chronic fatigue Other malaise and fatigue documented in this encounter Additional Health Concerns Assessment Noted Time PHQ-9 Depression Total Score: 0 10/07/20 19 10:06 AM CADDIE SUPERVISOR documented as of this encounter Care Teams Store Standards Associate Relationship Specialty Start Date End Date Delonte Marin MD [address] [place] [address] [address] [place] [address] PCP - General Podiatry 08/23/15 documented as of this encounter
--- OUTSIDE RECORDS SUMMARY | 2024-11-30 10:15 | XMS_ITS | Encounter Summary ---
Author Organization [email or web address] Address [address] [place] [address] Care Team Providers Care Pencil Sorter Name Role Phone Delonte Marin MD Primary Care Provider +1- [phone] Reason for Visit * Reason Onset Date Comments triage call 10/04/2021 Encounter Details Date Type Department Care Team (Late st Contact Info) Description 10/04/2021 Telephone [facility][Note 3] - [facility] [address] [place] [address] Francesca Coates [address] [place] [address] triage call Social History Tobacco Use Types Packs/Day Years Used Date Smoking Tobacco: Never Smokeless Tobacco: Never Alcohol Use Standard Drinks/Week Comments No 0 (1 standard drink = 0.6 oz pur e alcohol) PHQ-2 Answer Date Recorded PHQ-2 Total Score (RETIRED) 0 052 11/2020 Comments Unknown Sex and Gender Information Value [...] AM CDT documented as of this encounter Miscellaneous Notes * Telephone Encounter - Francesca Coates CMA - 10/04/2021 8:09 AM FRAME HAND [facility] Nurse Triage for All Respiratory/Flu Like Symptoms Describe symptoms: Do you have a PRODUCTIVE COUGH? No DRY COUGH? No SHORTNESS OF BREATH? No FEVER? No CHILLS? No LOSS OF TASTE? No LOSS OF SMELL? No HEADACHE? No FATIGUE? No WEAKNESS? No SNEEZING? No WATERY EYES? No SINUS PAIN? No SINUS PRESSURE? No MUSCLE ACHES? No SORE THROAT? Yes NAUSEA? No VOMITING? No DIARRHEA? No RASH? No Additional symptoms: Have you seen another provider in the past 48 hours? No Please describe length of onset of symptoms: When did your symptoms begin? 10/03/21 Are they improving, unchanged or getting worse? worsening Do you have an outstanding COVID-19 Test No Have you had your COVID vaccine? No If Yes, when was your last dose? Please describe any significant co morbidities: HTN COPD, HEART DISEASE, HIGH BLOOD PRESSURE, ASTHMA, IMMUNOCOMPROMISED, DIABETES, CHRONIC KIDNEY DISEASE OTHER CHRONIC LUNG DISEASE Have you had close contact with (close contact means within 6 feet of exposure to) someone who has a laboratory confirmed test of COVID-19? no Are you currently working?No Is yes, where do you work at: [employer] documented in this encounter Plan of Treatment Not on file documented as of this encounter Goals Goal Patient Goal Type Associated Problems Recent Progress Patient-Stated? Author Blood Pressure < 140/90 Blood Pressure 118/82(2024 10:05 AM FRAME HAND) No Delonte Marin MD Use sunscreen daily Lifestyle No Divya Cr RN Frequent Skin Checks Lifestyle No Divya Cr RN documented as of this encounter Visit Diagnoses Not on filedocumented in this encounter Additional Health Concerns Assessment Noted Time PHQ-9 Depression Total Score: 0 10/07/20 19 10:06 AM FRAME HAND documented as of this encounter Care Teams Pencil Sorter Relationship Specialty Start Date End Date Delonte Marin MD [address] [facility] [address] [place] [address] PCP - General Podiatry 08/23/15 documented as of this encounter
--- OUTSIDE RECORDS SUMMARY | 2024-11-30 10:15 | XMS_ITS | Encounter Summary ---
Author Organization [employer] Address [address] [place] [address] Care Team Providers Care Gold Reclaimer Name Role Phone Delonte Marin MD Primary Care Provider +1- [phone] Reason for Visit * Reason Onset Date Comments Medication Refill Medication Refill 08/23/2021 Encounter Details Date Type Department Care Team (Late st Contact Info) Description 08/23/2021 Refill [facility] Neurology [address] [place] [phone] Delonte Farfan MD [address] [place] [address] Chronic migraine without aura without status [...] 140/90 Blood Pressure 118/82(2024 10:05 AM DATA VIRTUALIZATION CONSULTANT) No Delonte Marin MD Use sunscreen [...] Depression Total Score: 0 10/07/20 10:06 AM DATA VIRTUALIZATION CONSULTANT documented as of this encounter Care Teams Gold Reclaimer Relationship Specialty [place] [address] [place] [address] [place] [address] PCP - General Podiatry 08/23/15 documented as of this encounter
--- OUTSIDE RECORDS SUMMARY | 2024-11-30 10:15 | XMS_ITS | Encounter Summary ---
Author Organization [employer] Address [address] [place], [place] [id number] Care Team Providers Care Weatherization Operations Manager Name Role Phone Delonte Marin MD Primary Care Provider +1- [phone] Reason for Visit * Reason Onset Date Comments Labs Only 08/21/2021 Encounter Details Date Type Department Care Team ([facility] st Contact Info) Description 08/21/[address] [place] [address] Wendi Prince [facility] [address] [facility] [address] [place] [address] Labs Only Social History Tobacco Use Types Packs/Day Years [...] encounter Miscellaneous Notes * Telephone Encounter - Wendi Prince CMA - 08/21/2021 3:15 PM CDT Call to patient, she would like a CBC done as well. Per Dr Marin, ok to add CBC. * Telephone Encounter - Wendi Prince CMA - 08/21/2021 3:08 PM CDT ----- Message from Gayle Arriola sent at 08/21/2021 1:12 PM CDT ----- Regarding: Labs Provider: Dr Marin Who Called? [phone] Is the patient active on MyChart?: Y Patient call back number: [phone] Has a question about the labs that were drawn. Message by Gayle Arriola documented in this encounter Plan of Treatment Not on file documented as of this encounter Goals Goal Patient Goal Type Associated Problems Recent Progress Patient-Stated? Author Blood Pressure < 140/90 Blood Pressure 118/82(2024 10:05 AM STUDENT SERVICES REPRESENTATIVE) No Delonte Marin MD Use sunscreen daily Lifestyle No Divya Cr, RN Frequent Skin Checks Lifestyle No Divya Cr, RN documented as of this encounter Visit Diagnoses Not on filedocumented in this encounter Additional Health Concerns Assessment Noted Time PHQ-9 Depression Total Score: 0 10/07/20 19 10:06 AM STUDENT SERVICES REPRESENTATIVE documented as of this encounter Care Teams Weatherization Operations Manager Relationship Specialty Start Date End Date Delonte Marin MD [address] [facility] [address] [place] [address] PCP - General Podiatry 08/23/15 documented as of this encounter
--- OUTSIDE RECORDS SUMMARY | 2024-11-30 10:16 | XMS_ITS | Encounter Summary ---
Author Organization [employer] Address [address] [place] [address] Care Team Providers Care Mobile Phlebotomist Name Role Phone Kathy Marin MD Primary Care Provider +1- [phone] Reason for Visit * Reason Comments Migraine * MRI/CAT Scan (Routine) - Closed Specialty Diagnoses / Procedures Referred By Contac t Referred To Contact Radiology Diagnoses Chronic migraine without aura without status migrainosus, not intractable Neck pain 25 weeks gestation of Procedures MRI Brain wo Contrast Kathy Adkins MD [address] [place] [address] Phone: tel: fax: Referral ID Status Reason Start Date Expiration Date Visits Re quested Visits Authorized [id number] Closed 06/01/2020 11/28/2020 1 1 Encounter Details Date Type Department Care Team ([facility] st Contact Info) Description 06/02/2020 1:30 PM CDT Clinical Support [facility] [address] [place] [phone] Kathy Adkins MD [address] [place] [address] Amanda Foster, RTR [address] [place] [address] Chronic migraine without aura without status migrainosus, not intractable; Neck pain; 25 weeks gestation of Social History Tobacco Use Types Packs/Day Years Used Date Smoking Tobacco: Never Smokeless Tobacco: Never Alcohol Use Standard Drinks/Week Comments No 0 (1 standard drink = 0.6 oz pur e alcohol) PHQ-2 Answer Date Recorded PHQ-2 Score 0 08/14/2019 Comments Unknown Sex and Gender Information Value [...] have Coronavirus / COVID-19? No / Unsure 05/19/2020 11:01 AM CDT documented as of this encounter Plan of Treatment Not on file documented as of this encounter Goals Goal Patient Goal Type Associated Problems Recent Progress Patient-Stated? Author Use sunscreen daily Lifestyle No Divya Cr RN Frequent Skin Checks Lifestyle No Divya Cr RN documented as of this encounter Procedures Procedure Name Priority Date/Time Associated Diagnosis Comments MRI BRAIN WO CONTRAST Routine 06/02/2020 1:54 PM CDT Chronic migraine without aura without status migrainosus, not intractable Neck pain 25 weeks gestation of documented in this encounter Results * MRI Brain wo Contrast (06/02/2020 1:54 PM CDT) Anatomical Region Laterality Modality Head Magnetic Resonan ce 06/02/2020 1:54 PM CDT Narrative 06/03/2020 10:08 [place] [address] DIAGNOSTIC IMAGING Name: MICHELLE GOMEZ ? Ordering Phys: KATHY ADKINS Age: 34 ?Date of : 1985 ? Accession Number: [id number] Date of Service:06/02/2020 ?? Gender: F EXAM DESCRIPTION: ?? MRI BRAIN WO CONTRAST; MR ANGIOGRAPHY HEAD WO CONTRAST REASON FOR STUDY: ??Chronic migraine headaches and neck pain x2 years, though worsened over the past month and exacerbated when bending over. ??No trauma. ??Patient 25 weeks . TECHNIQUE: ??MRI BRAIN: Multiplanar imaging includes noncontrast T1, T2, FLAIR, diffusion with ADC map and post contrast T1 sequences. Additional sequence(s) sensitive to blood products. Images stored on PACS. MRV HEAD: MRV was performed using a 2D TOF technique. 3D MIP images rendered on scanning unit and reviewed at time of interpretation. CONTRAST TYPE/DOSE: ??None administered. COMPARISON: ?? MRI cervical spine 02/11/2019; cervical spine radiograph 11/30/2019; MRI brain without contrast FINDINGS: ??MRI BRAIN: CEREBRUM: No hemorrhage, edema, or mass effect. WHITE MATTER: ??Normal. POSTERIOR FOSSA: ??Redemonstration of 1 mm bilateral cerebellar tonsillar ectopia. ??Brainstem and cerebellum appear other unremarkable. DIFFUSION IMAGING: ??No restricted diffusion to suggest acute/subacute ischemia or infarct. EXTRAAXIAL SPACES: ??No hemorrhage. ??No mass. ??No hydrocephalus with stable conformation and position of the ventricular system. No enlargement of Meckel's caves. ??No prominent arachnoid pits and/or meningocele is demonstrated. BRAIN VOLUME: ??Within normal limits for age. PITUITARY: ??Rounded fullness of the pituitary gland compatible with age and status. ??No overt evidence of pituitary lesion. VASCULATURE: ??No flow disturbance evident on this non angiographic study. CALVARIUM: Unremarkable. ORBITS: ??No acute abnormality. ??Ocular lenses and globes normal in conformation. ??No vertical tortuosity of the optic nerves nor fluid prominence within the optic nerve sheaths. PARANASAL SINUSES AND MASTOIDS: ??Paranasal sinuses clear. Redemonstration of minimal scattered fluid about the dependent mastoid air cells. OTHER: ??No other significant finding. MRV HEAD: On the MRV the visualized dural and deep venous sinuses demonstrate patent flow characteristics. No obvious venous thrombosis is evident on this scan. IMPRESSION: ??MRI BRAIN: No acute intracranial process with stable chronic findings as above. MRV HEAD: No significant abnormality demonstrated on intracranial MR venogram. THIS IS AN ELECTRONICALLY VERIFIED FINAL REPORT 06/03/2020 10:05 AM - Electronically signed by Josh Gómez M.D. JESSICA: JESSICA D: ??06/03/2020 10:05 AM T: ??06/03/2020 10:05 AM Report ID: [id number] Reading Location: ??[id number] Procedure Note Josh Gómez MD - 06/03/2020 [place] [address] DIAGNOSTIC IMAGING Name: MICHELLE GOMEZ Ordering Phys: KATHY ADKINS Age: 34 Date of : 1985 Accession Number: [id number] Date of Service:06/02/2020 Gender: F EXAM DESCRIPTION: MRI BRAIN WO CONTRAST; MR ANGIOGRAPHY HEAD WO CONTRAST REASON FOR STUDY: Chronic migraine headaches and neck pain x2 years, though worsened over the past month and exacerbated when bending over. No trauma. Patient 25 weeks . TECHNIQUE: MRI BRAIN: Multiplanar imaging includes noncontrast T1, T2, FLAIR, diffusion with ADC map and post contrast T1 sequences. Additional sequence(s) sensitive to blood products. Images stored on PACS. MRV HEAD: MRV was performed using a 2D TOF technique. 3D MIP images rendered on scanning unit and reviewed at time of interpretation. CONTRAST TYPE/DOSE: None administered. COMPARISON: MRI cervical spine 02/11/2019; cervical spine radiograph 11/30/2019; MRI brain without contrast FINDINGS: MRI BRAIN: CEREBRUM: No hemorrhage, edema, or mass effect. WHITE MATTER: Normal. POSTERIOR FOSSA: Redemonstration of 1 mm bilateral cerebellar tonsillar ectopia. Brainstem and cerebellum appear other unremarkable. DIFFUSION IMAGING: No restricted diffusion to suggest acute/subacute ischemia or infarct. EXTRAAXIAL SPACES: No hemorrhage. No mass. No hydrocephalus with stable conformation and position of the ventricular system. No enlargement of Meckel's caves. No prominent arachnoid pits and/or meningocele is demonstrated. BRAIN VOLUME: Within normal limits for age. PITUITARY: Rounded fullness of the pituitary gland compatible with age and status. No overt evidence of pituitary lesion. VASCULATURE: No flow disturbance evident on this non angiographic study. CALVARIUM: Unremarkable. ORBITS: No acute abnormality. Ocular lenses and globes normal in conformation. No vertical tortuosity of the optic nerves nor fluid prominence within the optic nerve sheaths. PARANASAL SINUSES AND MASTOIDS: Paranasal sinuses clear. Redemonstration of minimal scattered fluid about the dependent mastoid air cells. OTHER: No other significant finding. MRV HEAD: On the MRV the visualized dural and deep venous sinuses demonstrate patent flow characteristics. No obvious venous thrombosis is evident on this scan. IMPRESSION: MRI BRAIN: No acute intracranial process with stable chronic findings as above. MRV HEAD: No significant abnormality demonstrated on intracranial MR venogram. THIS IS AN ELECTRONICALLY VERIFIED FINAL REPORT 06/03/2020 10:05 AM - Electronically signed by Josh Gómez M.D. JESSICA: JESSICA Report ID: [id number] Reading Location: [id number] Kathy Adkins MD IMG MRI ORDERABLES Final Result documented in this encounter Visit Diagnoses Diagnosis Chronic migraine without aura without status migrainosus, not intractable Chronic migraine without aura, without mention of intractable migraine without mention of status migrainosus Neck pain Cervicalgia 25 weeks gestation of state, incidental documented in this encounter Additional Health Concerns Assessment Noted Time PHQ-9 Depression Total Score: 0 10/07/20 19 10:06 AM SILK SCREEN PRINTER documented as of this encounter Care Teams Mobile Phlebotomist Relationship Specialty Start Date End Date Kathy Marin MD [address] [facility] [address] [place] [address] PCP - General Podiatry 08/23/15 documented as of this encounter
--- OUTSIDE RECORDS SUMMARY | 2024-11-30 10:16 | XMS_ITS | Encounter Summary ---
Author Organization [employer] Address [address] [place] [address] Care Team Providers Care Steward/Stewardess Second Class Name Role Phone Delonte Marin MD Primary Care Provider +1- [phone] Encounter Details Date Type Department Care Team ([facility] st Contact Info) Description 04/18/2021 Orders Only [facility] D[facility]atology [address] [place] [address] Sailaja Bianchi LPN [address] [place] [address] Flat wart Social History Tobacco [...] < 140/90 Blood Pressure 118/82(2024 10:05 AM CHIEF PROGRAM OFFICER) No Delonte Marin MD Use sunscreen daily Lifestyle No Divya Cr, RN Frequent Skin Checks Lifestyle No Divya Cr, RN documented as of this encounter Visit Diagnoses Diagnosis Flat wart Other specified viral warts documented in this encounter Additional Health Concerns Assessment Noted Time PHQ-9 Depression Total Score: 0 10/07/20 10:06 AM CHIEF PROGRAM OFFICER documented as of this encounter Care Teams Steward/Stewardess Second Class Relationship Specialty [place] [address] [place] [address] [address] [place] [address] PCP - General Podiatry 08/23/15 documented as of this encounter
--- OUTSIDE RECORDS SUMMARY | 2024-11-30 10:16 | XMS_ITS | Encounter Summary ---
Author Organization [employer] Address [address] [place] [address] Care Team Providers Care Stained Glass Glazier Name Role Phone Delonte Marin MD Primary Care Provider +1- [phone] Reason for Visit * Referral (Routine) - Closed Specialty Diagnoses / Procedures Referred By Tommie jara Referred To Contact Ophthalmology Diagnoses Chronic migraine without aura without status migrainosus, not intractable Visual changes Delonte Farfan MD [address] [place] [address] Phone: tel: fax: [facility] [address] [place] [address] Phone: tel: fax: Referral ID Status Reason Start Date Expiration Date V isits Requested Visits Authorized [id number] Closed Specialty Services Required 02/22/2020 02/21/2021 1 1 Encounter Details Date Type Department Care Team (Late st Contact Info) Description 03/04/2020 1:00 PM CDT Ophth Exam [facility] [address] [place] [address] Ortiz Diego MD [address] [place] [id number] Ophthalmic migraine (Primary Dx) Social History Tobacco Use Types [...] have Coronavirus / COVID-19? No / Unsure 03/04/2020 12:47 PM CDT documented as of this encounter Progress Notes * Ortiz Diego MD - 03/04/2020 1:00 PM CDT Migraine with ophthalmic aura. Likely exacerbated by -induced hormonal changes. Patient was reassured that I do not see any signs of optic disc edema which would indicate intracranial pressure elevation. Of course, this could always be just getting started and sometimes it takes a while for the optic disc edema to start. Patient was educated to monitor her symptoms. If they worsen significantly or she has more vision problems, she should return for reevaluation. No indications from an ophthalmologic standpoint for a lumbar puncture at this point, but patient was educated that this will be determined by Dr. Farfan, as he may feel more of a need to definitively rule out increased intracranial pressure. No further follow-up scheduled with me, but I am always available as needed. -Nerve fiber layer OCT in each eye is within normal limits. No elevation of the nerve fiber layer or atrophy. Reliable scan OU. -Visual field in the right eye shows very borderline inferior visual field changes. Mean deviation is +0.96 dB. Reliability is low secondary to increase false positives. -Visual field in the left eye is within normal limits. Mean deviation is +0.85 dB. Reliability is low secondary to fixation losses. Thank you very much to Dr. Farfan for this consultation. Patient will continue to follow-up withhawk, her primary care physician, and Dr. Benítez. documented in this encounter Plan of Treatment Not on file documented as of this encounter Goals Goal Patient Goal Type Associated Problems Recent Progress Patient-Stated? Author Use sunscreen daily Lifestyle No Divya Cr, RN Frequent Skin Checks Lifestyle No Divya Cr RN documented as of this encounter Visit Diagnoses Diagnosis Ophthalmic migraine- Primary Other forms of migraine, without mention of intractable migraine without mention of status migrainosus documented in this encounter Additional Health Concerns Assessment Noted Time PHQ-9 Depression Total Score: 0 10/07/20 19 10:06 AM NETWORK OPERATIONS LEAD documented as of this encounter Care Teams Stained Glass Glazier Relationship Specialty [place] [address] [place] [address] [address] [place] [address] PCP - General Podiatry 08/23/15 documented as of this encounter
--- OUTSIDE RECORDS SUMMARY | 2024-11-30 10:16 | XMS_ITS | Encounter Summary ---
Author Organization [employer] Address [address] [place] [address] Care Team Providers Care Biodiesel Process Control Technician Name Role Phone Delonte Marin MD Primary Care Provider +1- [phone] Reason for Visit * Reason Comments Medication Refill Encounter Details Date Type Department Care Team (Late st Contact Info) Description 08/30/2020 Refill [facility] Neurology [address] [place] [phone] Delonte Farfan MD [address] [place] [address] 2 [place] [address] Chronic migraine without aura without [...] Total Score: 0 10/07/20 19 10:06 AM STERILIZATION TECHNICIAN documented as of this encounter Care Teams Biodiesel Process Control Technician Relationship Specialty Start Date End Date Delonte Marin MD [address] [facility] [address] [place] [address] PCP - General Podiatry 08/23/15 documented as of this encounter
--- OUTSIDE RECORDS SUMMARY | 2024-11-30 10:16 | XMS_ITS | Encounter Summary ---
Author Organization [employer] Address [address] [place] [address] Care Team Providers Care Machine Inspector Name Role Phone Delonte Marin MD Primary Care Provider +1- [phone] Encounter Details Date Type Department Care Team (Latest Contact Info) Description 01/12/2021 1:42 PM INTELLIGENCE SENIOR SERGEANT - 01/12/2021 11:59 PM INTELLIGENCE SENIOR SERGEANT Hospital Encounter [facility] [address] [place] [id number] Chronic fatigue; Migraine without aura and without status migrainosus, not intractable; Essential hypertension Discharge Disposition: Home - Discharge to Home [...] have Coronavirus / COVID-19? No / Unsure 01/12/2021 1:07 PM INTELLIGENCE SENIOR SERGEANT documented as of this encounter Medications at Time of Discharge escitalopram (LEXAPRO) 10 MG tablet Take 10 mg by mouth daily. 12/27/2020 labetalol (NORMODYNE) 100 MG tablet Take 100 mg by mouth daily. 09/23/2020 1 magnesium 200 MG TABS tablet Take 1 (one) tablet by mouth daily. 4 nortriptyline (PAMELOR) 10 MG capsuleIndication s:Chronic migraine without aura without status migrainosus, not intractable Take 3 capsules by mouth nightly. 270 capsule 1 12/16/2020 1 SUMAtriptan succinate (IMITREX) 100 MG tabletIndications [...] < 140/90 Blood Pressure 118/82(2024 10:05 AM [facility]) No Delonte Marin MD Use sunscreen daily Lifestyle No Divya Cr RN Frequent Skin Checks Lifestyle No Divya Cr RN documented as of this encounter Procedures Procedure Name Priority Date/Time Associated Diagnosis Comments TSH Routine 01/12/2021 1:42 PM INTELLIGENCE SENIOR SERGEANT Chronic fatigue Migraine without aura and without status migrainosus, not intractable Essential hypertension COMPREHENSIVE METABOLIC PANEL Routine 01/12/2021 1:42 PM INTELLIGENCE SENIOR SERGEANT Chronic fatigue Migraine without aura and without status migrainosus, not intractable Essential hypertension documented in this encounter Results * (ABNORMAL) Comprehensive metabolic panel (01/12/2021 1:42 PM [facility]) Sodium 144 136 - 145 mmol/L 01/12/2021 6:38 PM [facility] Potassium 3.7 3.5 - 5.1 mmol/L 01/12/2021 6:38 PM [facility] Chloride 106 98 - 107 mmol/L 01/12/2021 6:38 PM [facility] CO2 28 21 - 32 mmol/L 01/12/2021 6:38 PM [facility] Glucose 114(H) 74 - 106 mg/dL 01/12/2021 6:38 PM [facility] BUN 12 7.0 - 18.0 mg/dL 01/12/2021 6:38 PM [facility] Creatinine 0.96 0.55 - 1.02 mg/dL 01/12/2021 6:38 PM [facility] Calcium 9.3 8.5 - 10.1 mg/dL 01/12/2021 6:38 PM [facility] Total Protein 8.2 6.4 - 8.2 g/dL 01/12/2021 6:38 PM [facility] Albumin 4.2 3.4 - 5.0 g/dL 01/12/2021 6:38 PM [facility] Bilirubin Total 0.3 0.2 - 1.0 mg/dL 01/12/2021 6:38 PM [facility] Alkaline Phosphatase 86 42 - 98 U/L 01/12/2021 6:38 PM [facility] AST 24 15 - 37 U/L 01/12/2021 6:38 PM [facility] ALT 51 14 - 59 U/L 01/12/2021 6:38 PM [facility] Anion Gap 10 8 - 16 mmol/L 01/12/2021 6:38 PM [facility] BUN/Creatinine Ratio 12.5 01/12/2021 6:38 PM [facility] Osmolality Calculated 287 285 - 295 mosm/kg 01/12/2021 6:38 PM [facility] Globulin 4.0(H) 2.3 - 3.4 g/dL 01/12/2021 6:38 PM [facility] A/G Ratio 1.1(L) 1.2 - 2.4 01/12/2021 6:38 PM [facility] Creatinine Based eGFR 78 mL/min/[1. 73_m2] 01/12/2021 6:38 PM [facility] Comment:GFR 60-90 Mild decre ased GFR. Serum specimen (specimen) 01/12/2021 1:42 PM [facility] 01/12/2021 5:44 PM [facility] Delonte Marin MD LAB BLOOD ORDERABLES Final Result [facility] [address] [place], [place] [phone] [facility] [address] [place] [address] * TSH (01/12/2021 1:42 PM INTELLIGENCE SENIOR SERGEANT) TSH 1.77 0.36 - 3.74 m[IU]/L 01/12/2021 6:38 PM INTELLIGENCE SENIOR SERGEANT [facility] Serum specimen (specimen) 01/12/2021 1:42 PM INTELLIGENCE SENIOR SERGEANT 01/12/2021 5:44 PM INTELLIGENCE SENIOR SERGEANT us Delonte Marin MD LAB BLOOD ORDERABLES Final Result Performing Organization Address City/[facility]/ZIP Co de Phone Number [facility] [address] [place], [place] [phone] [facility] [address] [place] [address] documented in this encounter Visit Diagnoses Diagnosis Chronic fatigue Other malaise and fatigue Migraine without aura and without status migrainosus, not intractable Migraine without aura, without mention of intractable migraine without mention of status migrainosus Essential hypertension Unspecified essential hypertension documented in this encounter Additional Health Concerns Assessment Noted Time PHQ-9 Depression Total Score: 0 10/07/20 19 10:06 AM INTELLIGENCE SENIOR SERGEANT documented as of this encounter Care Teams Machine Inspector Relationship Specialty [place] [address] [place] [address] [address] [place] [address] PCP - General Podiatry 08/23/15 documented as of this encounter
--- OUTSIDE RECORDS SUMMARY | 2024-11-30 10:16 | XMS_ITS | Encounter Summary ---
Author Organization [employer] Address [address] [place] [address] Care Team Providers Care Director Funeral Name Role Phone Delonte Marin MD Primary Care Provider +1- [phone] Reason for Visit * Reason Comments Medication Refill Encounter Details Date Type Department Care Team (Late st Contact Info) Description 06/21/2021 Refill [facility] Neurology [address] [place] [phone] Delonte Farfan MD [address] [place] [address] 2 [place] [address] Chronic migraine without aura without [...] < 140/90 Blood Pressure 118/82(2024 10:05 AM PLASTIC EXTRUDING MACHINE OPERATOR) No Delonte Marin MD Use [...] Total Score: 0 10/07/20 19 10:06 AM PLASTIC EXTRUDING MACHINE OPERATOR documented as of this encounter Care Teams Director Funeral Relationship Specialty [place] [address] [place] [address] [address] [place] [address] PCP - General Podiatry 08/23/15 documented as of this encounter
--- OUTSIDE RECORDS SUMMARY | 2024-11-30 10:16 | XMS_ITS | Encounter Summary ---
Author Organization [employer] Address [address] [place] [address] Care Team Providers Care Funeral Driver Name Role Phone Delonte Marin MD Primary Care Provider +1- [phone] Reason for Referral * Referral (Routine) - Canceled Specialty Diagnoses / Procedures Referred By Tommie jara Referred To Contact Neurology Diagnoses Chronic migraine without aura without status migrainosus, not intractable Neck pain Visual changes 11 weeks gestation of Delonte Farfan MD [address] [place] [address] Phone: tel: fax: REF [facility] [address] [place] [address] Phone: tel: fax: Referral ID Status Reason Start Date Expiration Date Visits Requested Visits Authorized [id number] Canceled Specialty Services Required 05/19/2020 05/19/2021 1 1 Encounter Details Date Type Department Care Team (Late st Contact Info) Description 03/24/2020 2:10 PM CDT Telemedicine [facility] Neurology [address] [place] [phone] Delonte Farfan MD [address] [place] [address] Chronic migraine without aura without status migrainosus, not intractable (Primary Dx); Migraine without status migrainosus, not intractable, unspecified migraine type; Neck pain; Visual changes; 11 weeks gestation of ; Chronic migraine Social History Tobacco Use Types Packs/Day Years [...] Progress Notes * Delonte Farfan MD - 03/24/2020 2:10 PM CDT [facility] Department of Neurology Telehealth Visit [address] [place] [address] Encounter Date: 03/24/2020 Name: Michelle Langfordlivan : 1985 PCP: Delonte Marin MD During this emergency period the patient has initiated this contact and has consented to a Telehealth visit with Delonte Farfan MD . Start Time:215pm Stop Time: 245pm (Patient) Originating Location: home (Provider) Distant Location: [facility] Subjective: Michelle Gomez is a 34 y.o. female were seen Kash on a tele-visit. COVID crisis tele-medicine visit. She is now 15 weeks . Her headaches have gotten much worse. Once again the neck is involvedvery stiff in the neck using her arms or legs aggravated actually just walking up a hill will aggravate it. With the social distancing and the lockdown this is made it harder for her to get around. Dr. Joseph is her OB. She has allowed nortriptyline up to 30 mg. She may allow some muscle relaxants in the third trimester. But not before. She has allowed her to use a bit of ibuprofen used on a cautious judicious basis. But none in the third trimester. Main issue is the neck currently the headaches have been most problematic there. She is seen neurosurgery (Dr. Colby and Judy Hernandez. Nothing surgical found. Nonspecific degenerative change. Really no instability with flexion-extension views. Reviewed and older imaging study from 2018 which showed some minor spondylolisthesis. \ She is quite concerned about her neck. But so far studies have returned negative. Being I hold off on MRI at this juncture. If she gets new symptoms she will contact her office and we can pursue other avenues. possibly using Botox for the migrainous components that she describes. I think this would be safe during . I do not think this would exacerbate headaches in any way. Physical therapy is also an option. She had some of that in the past and did not like how that did for her. When they added manipulation of her neck it actually exacerbated her headache for a period of time. She like to hold off on that for now. Otherwise what is really good during with neck pain is aquatics. But right now aquatics is limited. COVID crisis. Simply a perfect storm! I think headache specialist to provide some additional insights. Who probably reiterated a lot of what we have already said but I am looking for any other therapeutic avenues which mightbe useful. We will see how's soon we can get her in. Michelle Gomez's problem list, medications, allergies, past medical, surgical, social and family histories were reviewed and updated as appropriate. History: Past Medical History: Diagnosis Date ??? Acute sinusitis ??? Carpal tunnel syndrome Neck disc problems.Sees chiropractor and Celebrex ??? Cervical spondylosis 12/21/2019 ??? Gastroenteritis ??? Headache ??? Migraines Saw S[facility]. Uses Imitrex and nortriptyline. Less migraines since Mirena out. ??? Panic attack Past Surgical History: Procedure Laterality Date ??? Carpal tunnel release Left 09/12/2015 Left hand carpal tunnel release./Shobonier ??? Carpal tunnel release Right 10/24/2015 Right hand carpal tunnel release./Shobonier ??? Foot surgery Left bunionectomy Family History Problem Relation Age of Onset ??? Diabetes Paternal Grandmother ??? Diabetes Paternal Grandfather ??? Celiac disease Mother ??? Migraines Father ??? Cancer Neg Hx ??? Heart disease Neg Hx Social History Tobacco Use ??? Smoking status: Never Smoker ??? Smokeless tobacco: Never Used Substance Use Topics ??? Alcohol use: No Alcohol/week: 0.0 standard drinks ??? Drug use: No Allergies Allergen Reactions ??? Augmentin [Amoxicillin-Pot Clavulanate] Nausea And Vomiting Current Outpatient Medications Medication Sig Dispense Refill ??? magnesium 200 MG TABS tablet Take 200 mg by mouth daily. ??? nortriptyline (PAMELOR) 10 MG capsule Take 6 capsules by mouth nightly. (Patient taking differently: Take 40 mg by mouth nightly. ) 180 capsule 5 No current facility-administered medications for this visit. Review of Systems: Review of Systems Constitutional: Negative for chills, fatigue and fever. Respiratory: Negative for chest tightness and shortness of breath. Cardiovascular: Negative for chest pain and palpitations. Neurological: Positive for headaches. Negative for dizziness. Objective: Physical Exam: General: No apparent distress Mental Status: Awake and alert. Normal speech Cranial Nerves: VII: No facial asymmetry Motor: no new motor. Abnormal movements: none Coordination: No discoordination noted in the upper extremities. Assessment & Plan: 1. Chronic migraine without aura without status migrainosus, not intractable 2. Migraine without status migrainosus, not intractable, unspecified migraine type 3. Neck pain 4. Visual changes 5. 11 weeks gestation of 6. Chronic migraine Were going to proceed with Botox. We are going to get tertiary opinion regarding these headaches and her neck pain from Dr. Cruz in [place] at [facility]. She will keep us advised of her progress. Continued aerobic exercise were possible taper triggers were possible Follow directives of Dr. Rachelle Joseph for management of the obstetric aspect. Continue nortriptyline. \If she wants to try a round of physical therapy again we could have them cautiously try some measures such as iontophoresis. Any manipulation must be very gentle. She had some numbness in her hand which might of been a migrainous aura but she also has a history of carpal tunnel and she is again. There is possible that could reemerge. Low threshold forEMG NCS documented in this encounter Miscellaneous Notes * Addendum Note - Martha Shell RN - 03/24/2020 2:10 PM CDTAddended by: MARTHA SHELL on: 05/19/2020 10:12 AM Modules accepted: Orders documented in this encounter Plan of Treatment Scheduled Referrals Name Type Priority Associated Diagnoses Orde r Schedule Amb Ref to Neurology Outpatient Referral Routine Chronic migraine without aura without status migrainosus, not intractable Neck pain Visual changes 11 weeks gestation of Ordered: 05/19/2020 documented as of this encounter Goals Goal [...] intractable migraine without mention of status migrainosus Migraine without status migrainosus, not intractable, unspecified migraine type Neck pain Cervicalgia Visual changes Unspecified visual disturbance 11 weeks gestation of state, incidental Chronic migraine Chronic migraine without aura, without mention of intractable migraine without mention of status migrainosus documented in this encounter Additional Health Concerns Assessment Noted Time PHQ-9 Depression Total Score: 0 10/07/20 19 10:06 AM PRODUCT ENGINEERING MANAGER documented as of this encounter Care Teams Funeral Driver Relationship Specialty Start Date End Date Delonte Marin MD [address] [facility] [address] [place] [address] PCP - General Podiatry 08/23/15 documented as of this encounter
--- OUTSIDE RECORDS SUMMARY | 2024-11-30 10:16 | XMS_ITS | Encounter Summary ---
Author Organization [employer] Address [address] [place] [address] Care Team Providers Care Corporate Legal Intern Name Role Phone Delonte Mrain MD Primary Care Provider +1- [phone] Reason for Visit * Reason Comments Migraine Follow up Encounter Details Date Type Department Care Team ([facility] st Contact Info) Description 01/12/2021 1:00 PM WOODWORKING SHOP LABORER Office Visit [address] [place] [address] Delonet Marin MD [address] [place] [address] [address] [place] [address] Essential hypertension (Primary Dx); Chronic fatigue; Migraine without aura and without status migrainosus, not intractable Social History [...] COVID-19? No / Unsure 01/12/2021 1:07 PM WOODWORKING SHOP LABORER documented as of this encounter Last Filed Vital Signs Vital Sign Reading Time Taken Comments Blood Pressure 128/84 01/12/2021 1:14 PM WOODWORKING SHOP LABORER Pulse 132 01/12/2021 1:14 PM WOODWORKING SHOP LABORER Temperature 36.2 ??C (97.1 ??F) 01/12/2021 1:14 PM CS T Respiratory Rate - - Oxygen Saturation 98% 01/12/2021 1:14 PM WOODWORKING SHOP LABORER Inhaled Oxygen Concentration - - Weight 76.5 kg (168 lb 9.6 oz) 01/12/2021 1:14 P M WOODWORKING SHOP LABORER Height - - Body Mass Index 27.21 11/16/2020 11:46 AM WOODWORKING SHOP LABORER documented in this encounter Progress Notes * Delonte Marin MD - 01/12/2021 1:00 PM CST [address] [facility] [address] Dept: [phone] Dept Loc: [phone] Loc Date: 01/12/2021 Name: Michelle Gomez : 1985 PCP: Delonte Marin MD Subjective: Patient ID: Michelle Gomez is a 35 y.o. female. CC: Michelle Gomez is a 35 y.o. patient is seen today for Chief Complaint Patient presents with ??? Migraine Follow up NOTE: Abbreviations, medical idioms and medical terminology [...] face masks as recommended by the CDC, [facility], and [place] COVID-19 Guidelines. HPI Migraines. My migraines have been very few recently. They started me on labetalol for my blood pressure. I take OTC magnesium. I rarely need Imitrex. I have a lot of stress right now with 2 kids and my is sick. Patient is seen for migraines. She was diagnosed several years ago. She is currently at baseline. See medication list for current medications. No side effects to the medication. She denies abdominal pain, chills, diarrhea, emesis, fever, hearing problems, rash, sore throat, neck pain, nausea, viralcongestion, scotoma, recent trauma, and vision problems. Hypertension. I was diagnosed with HTN during my . My OB wants you to take over the HTN care. I am supposed to take 2 pills a day but, I often forget and only take one. I do have fatigueNo side effect. No vertigo. Patient is seen for hypertension. This was diagnosed several months ago ago. See medication list for current hypertension medications. She states that she takes all her medications consistently. She has no medication side effects. She denies chest pain, dizziness, dyspnea, fatigue, and palpitations. Recent blood pressures were: BP Readings from Last 5 Encounters: 01/12/21 128/84 11/16/20 122/90 05/27/20 118/78 12/26/19 106/78 12/24/19 126/84 Lab Results Component Value Date NA 144 01/12/2021 K 3.7 01/12/2021 CL 106 01/12/2021 CO2 28 01/12/2021 GLU 114 (H) 01/12/2021 BUN 12 01/12/2021 CREATININE 0.96 01/12/2021 CA 9.3 01/12/2021 EGFRNAA 78 01/12/2021 EGFRAA >60 11/13/2018 Fatigue. For several months now I am having fatigue. I gained 10 pounds. I have a lot of stress. Patient is seen for fatigue. This is a new problem. She says it started several months ago. It is not getting worse. She denies chest pain, chills, dyspnea, fever, and weight loss. She has a history of anxiety.. Recent lab work: TSH Date Value Ref Range Status 01/12/2021 1.77 0.36 - 3.74 m[IU]/L Final Lab Results Component Value Date HGB 12.9 11/13/2018 HCT 37.9 11/13/2018 Wt Readings from Last 3 Encounters: 01/12/21 76.5 kg (168 lb 9.6 oz) 11/16/20 71.7 kg (158 lb) 05/27/20 74.4 kg (164 lb) Patient's medications, allergies, past medical, surgical, social and family histories were reviewedand updated as appropriate. Review of Systems A 14-point ROS was performed. Additional ROS detailed in the HPI. Constitutional: No fever No chills. Fatigue. Weight gain. . HEENT: No sore throat No earache. [...] . Psychiatric/Behavioral: No amnesia No anxiety. . Objective: Blood pressure 128/84, pulse 132, temperature 36.2 ??C (97.1 ??F), temperature source Tympanic, weight 76.5 kg (168 lb 9.6 oz), SpO2 98 %., BMI Body mass index is 27.21 kg/m??. Physical Exam Constitutional: Oriented to person, place, [...] normal. . . . Current medications: ??? labetalol (NORMODYNE) 100 MG tablet, 0 ??? magnesium 200 MG TABS tablet, 0 ??? nortriptyline (PAMELOR) 10 MG capsule, 0 ??? SUMAtriptan succinate (IMITREX) 100 MG tablet, 0 ??? [DISCONTINUED] SUMAtriptan succinate (IMITREX) 100 MG tablet, 0 ??? escitalopram (LEXAPRO) 10 MG tablet, 0 ??? [DISCONTINUED] azithromycin (ZITHROMAX) 250 MG tablet, 0 Assessment/Plan: Problem List Items Addressed This Visit Chronic fatigue Relevant Orders Comprehensive metabolic panel (Completed) TSH (Completed) Essential hypertension - Primary Relevant Orders Comprehensive metabolic panel (Completed) TSH (Completed) Migraines Relevant Medications escitalopram (LEXAPRO) 10 MG tablet SUMAtriptan succinate (IMITREX) 100 MG tablet Other Relevant Orders Comprehensive metabolic panel (Completed) TSH (Completed) BMI: Body mass index is 27.21 kg/m??. Wt Readings from Last 3 Encounters: 01/12/21 76.5 kg (168 lb 9.6 oz) 11/16/20 71.7 kg (158 lb) 05/27/20 74.4 kg (164 lb) ASSESSMENT & PLAN: 1. Essential hypertension STATUS: Hypertension is uncontrolled on medication without side effects. BP Readings from Last 1 Encounters: 01/12/21 128/84 RECOMMENDATIONS: Take medication as prescribed. Never skip medications. Continue low salt and low carbohydrate diet. Continue to exercise. Check blood pressure daily. Laboratory results were reviewed and discussed with the patient.The patient voiced understanding and agreement with the above treatment plan. Goals for treatment: BP < 140 / 90. Treatment goals and risk of terminal block assembler complications with suboptimal control discussed with patient. Discussed general issues about hypertension pathophysiology and management. FOLLOW UP: Follow up in six months. MEDICATIONS: Continue medication. Take labetalol twice daily as ordered. ORDERS: Do follow up lab work as recommended. - Comprehensive metabolic panel; today - TSH; today 2. Chronic fatigue STATUS: On going. Lab Results Component Value Date TSH 1.77 01/12/2021 TSH 2.03 11/13/2018 RECOMMENDATIONS: FOLLOW UP: Follow up in one month. Telephone us or return to office if worse. MEDICATION: ORDERS: Will check labs - Comprehensive metabolic panel; today - TSH; today 3. Migraine without aura and without status migrainosus, not intractable STATUS: History of migraine headache. Presently at baseline. Discussed causes such as allergies, stress, trauma, and weather. RECOMMENDATIONS: Rest. Continue fluids. Take all medications as directed. FOLLOW UP: Follow up in twelve months. MEDICATION: Continue medication. ORDERS: - SUMAtriptan succinate (IMITREX) 100 MG tablet; Take 1 tablet by mouth as needed for Migraine. MAX2 per day. Dispense: 9 tablet; Refill: 5 - Comprehensive metabolic panel; today - TSH; today Questions have been answered. Patient verbalizes understanding and agreement with the plan. Education has been provided. ORDERS: Orders Placed This Encounter Medications ??? SUMAtriptan succinate (IMITREX) 100 MG tablet Sig: Take 1 tablet by mouth as needed for Migraine. MAX 2 per day. Dispense: 9 tablet Refill: 5 WILL NEED APPOINTMENT FOR ANY FURTHER REFILLS TESTS: Hospital Outpatient Visit on 01/12/2021 Component Date Value Ref Range Status ??? TSH 01/12/2021 1.77 0.36 - 3.74 m[IU]/L Final ??? Sodium 01/12/2021 144 136 - 145 mmol/L Final ??? Potassium 01/12/2021 3.7 3.5 - 5.1 mmol/L Final ??? Chloride 01/12/2021 106 98 - 107 mmol/L Final ??? CO2 01/12/2021 28 21 - 32 mmol/L Final ??? Glucose 01/12/2021 114* 74 - 106 mg/dL Final ??? BUN 01/12/2021 12 7.0 - 18.0 mg/dL Final ??? Creatinine 01/12/2021 0.96 0.55 - 1.02 mg/dL Final ??? Calcium 01/12/2021 9.3 8.5 - 10.1 mg/dL Final ??? Total Protein 01/12/2021 8.2 6.4 - 8.2 g/dL Final ??? Albumin 01/12/2021 4.2 3.4 - 5.0 g/dL Final ??? Bilirubin Total 01/12/2021 0.3 0.2 - 1.0 mg/dL Final ??? Alkaline Phosphatase 01/12/2021 86 42 - 98 U/L Final ??? AST 01/12/2021 24 15 - 37 U/L Final ??? ALT 01/12/2021 51 14 - 59 U/L Final ??? Anion Gap 01/12/2021 10 8 - 16 mmol/L Final ??? BUN/Creatinine Ratio 01/12/2021 12.5 Final ??? Osmolality Calculated 01/12/2021 287 285 - 295 mosm/kg Final ??? Globulin 01/12/2021 4.0* 2.3 - 3.4 g/dL Final ??? A/G Ratio 01/12/2021 1.1* 1.2 - 2.4 Final ??? Creatinine Based eGFR 01/12/2021 78 mL/min/[1.73_m2] Final Next Visit: Follow up in about 1 month (around 02/09/2021). Encounter of: 01/12/2021 Signed: Delonte Marin MD 01/12/2021 6:42 PM WORKING SHOP LABORER documented in this encounter Plan of Treatment Not on file documented as of this encounter Goals Goal Patient Goal Type Associated Problems Recent Progress Patient-Stated? Author Blood Pressure < 140/90 Blood Pressure 118/82(2024 10:05 AM WOODWORKING SHOP LABORER) No Delonte Marin MD Use sunscreen daily Lifestyle No Divya Cr, RN Frequent Skin Checks Lifestyle No Divya Cr, RN documented as of this encounter Results * TSH (01/12/2021 1:42 PM WOODWORKING SHOP LABORER) TSH 1.77 0.36 - 3.74 m[IU]/L 01/12/2021 6:38 PM WOODWORKING SHOP LABORER [facility] Serum specimen (specimen) 01/12/2021 1:42 PM WOODWORKING SHOP LABORER 01/12/2021 5:44 PM WOODWORKING SHOP LABORER us Delonte Marin MD LAB BLOOD ORDERABLES Final Result [facility] [address] [place], [place] [phone] [facility] [address] [place] [address] * (ABNORMAL) Comprehensive metabolic panel (01/12/2021 1:42 PM WOODWORKING SHOP LABORER) Sodium 144 136 - 145 mmol/L 01/12/2021 6:38 PM [facility] Potassium 3.7 3.5 - 5.1 mmol/L 01/12/2021 6:38 PM [facility] Chloride 106 98 - 107 mmol/L 01/12/2021 6:38 PM [facility] CO2 28 21 - 32 mmol/L 01/12/2021 6:38 PM [facility] Glucose 114(H) 74 - 106 mg/dL 01/12/2021 6:38 PM [facility] BUN 12 7.0 - 18.0 mg/dL 01/12/2021 6:38 PM [facility] Creatinine 0.96 0.55 - 1.02 mg/dL 01/12/2021 6:38 PM [facility] Calcium 9.3 8.5 - 10.1 mg/dL 01/12/2021 6:38 PM [facility] Total Protein 8.2 6.4 - 8.2 g/dL 01/12/2021 6:38 PM [facility] Albumin 4.2 3.4 - 5.0 g/dL 01/12/2021 6:38 PM [facility] Bilirubin Total 0.3 0.2 - 1.0 mg/dL 01/12/2021 6:38 PM [facility] Alkaline Phosphatase 86 42 - 98 U/L 01/12/2021 6:38 PM [facility] AST 24 15 - 37 U/L 01/12/2021 6:38 PM [facility] ALT 51 14 - 59 U/L 01/12/2021 6:38 PM [facility] Anion Gap 10 8 - 16 mmol/L 01/12/2021 6:38 PM [facility] BUN/Creatinine Ratio 12.5 01/12/2021 6:38 PM [facility] Osmolality Calculated 287 285 - 295 mosm/kg 01/12/2021 6:38 PM [facility] Globulin 4.0(H) 2.3 - 3.4 g/dL 01/12/2021 6:38 PM [facility] A/G Ratio 1.1(L) 1.2 - 2.4 01/12/2021 6:38 PM WOODWORKING SHOP LABORER [facility] Creatinine Based eGFR 78 mL/min/[1. 73_m2] 01/12/2021 6:38 PM [facility] Comment:GFR 60-90 Mild decre ased GFR. Serum specimen (specimen) 01/12/2021 1:42 PM WO[employer]WORKING SHOP LABORER 01/12/2021 5:44 PM WOODWORKING SHOP LABORER us Delonte Marin MD LAB BLOOD ORDERABLES Final Result [facility] [address] [place], [place] [phone] [facility] [address] [place] [address] documented in this encounter Visit Diagnoses Diagnosis Essential hypertension- Primary Unspecified essential hypertension Chronic fatigue Other malaise and fatigue Migraine without aura and without status migrainosus, not intractable Migraine without aura, without mention of intractable migraine without mention of status migrainosus documented in this encounter Additional Health Concerns Assessment Noted Time PHQ-9 Depression Total Score: 0 10/07/20 19 10:06 AM WOODWORKING SHOP LABORER documented as of this encounter Care Teams Corporate Legal Intern Relationship Specialty Start Date End Date Delonte Marin MD [address] [facility] [address] [place] [address] PCP - General Podiatry 08/23/15 documented as of this encounter
--- OUTSIDE RECORDS SUMMARY | 2024-11-30 10:16 | XMS_ITS | Encounter Summary ---
Author Organization [employer] Address [address] [place] [address] Care Team Providers Care Preparer Samples And Repairs Name Role Phone Delonte Marin MD Primary Care Provider +1- [phone] Reason for Visit * Reason Onset Date Comments Medication Refill 06/21/2021 Encounter Details Date Type Department Care Team (Late st Contact Info) Description 06/21/[address] [place] [address] Wendi Prince [facility] [address] [facility] [address] [place] [address] Social History Tobacco Use Types Packs/Day Years [...] Telephone Encounter - Wendi Prince CMA - 06/21/2021 2:24 PM CDT Images from the original note were not included. Brittni Dumont [facility] Caller: Michelle (Today, 12:47 PM) Who is your primary care provider? Tomas Are you active on MyChart? ??Yes; ??Would you prefer a MyChart response for today's call? ??No Reason for call: MEDICATION REFILL Medication name? ??labetalol (NORMODYNE) 100 MG tablet Medication dose/frequency? ??Take 100 mg by mouth daily. ?? Name of pharmacy? [facility] Any specific needs? (i.e. 30 day, 90 day, etc.) ?? Have you called your pharmacy? ??no Have the meds already been filled? (check last filled date) ??no Last PCP encounter date: ??04/18/2021 What is the best call back number for you? ??Preferred When is the best time to call you back? Anytime Is it ok to leave a detailed voicemail? no The patient was informed: Medications will be sent directly to the pharmacy. ??If there is a problem, the clinic staff will contact you. Message taken by Brittni Norman documented in this encounter Plan of Treatment Not on file documented as of this encounter Goals Goal Patient Goal Type Associated Problems Recent Progress Patient-Stated? Author Blood Pressure < 140/90 Blood Pressure 118/82(2024 10:05 AM WELLNESS GUIDE) No Delonte aMrin MD Use sunscreen daily Lifestyle No Divya Cr, RN Frequent Skin Checks Lifestyle No Divya Cr, RN documented as of this encounter Visit Diagnoses Not on filedocumented in this encounter Additional Health Concerns Assessment Noted Time PHQ-9 Depression Total Score: 0 10/07/20 19 10:06 AM WELLNESS GUIDE documented as of this encounter Care Teams Preparer Samples And Repairs Relationship Specialty Start Date End Date Delonte Marin MD [address] [facility] [address] [place] [address] PCP - General Podiatry 08/23/15 documented as of this encounter
--- OUTSIDE RECORDS SUMMARY | 2024-11-30 10:16 | XMS_ITS | Encounter Summary ---
Author Organization [employer] [facility] Address [address] [place] [address] Care Team Providers Care Overnight Houseperson Name Role Phone Delonte Marin MD Primary Care Provider +1- [phone] Encounter Details Date Type Department Care Team (Latest Contact Info) Description 05/19/2020 Travel Social History Tobacco Use Types Packs/Day [...] Depression Total Score: 0 10/07/20 10:06 AM AUTOMATIC DOOR MECHANIC documented as of this encounter Care Teams Overnight Houseperson Relationship Specialty Start Date End Date Delonte Marin MD [address] [facility] [address] [place] [address] PCP - General Podiatry 08/23/15 documented as of this encounter
--- OUTSIDE RECORDS SUMMARY | 2024-11-30 10:16 | XMS_ITS | Encounter Summary ---
Author Organization [employer] Address [address] [place] [id number] Care Team Providers Care Color Maker Formulator Name Role Phone Kathy Fenton MD Primary Care Provider [phone] Reason for Visit * Reason Comments Sore Throat symptoms started yes terday' pt has a sore throat and a little bit of sinus drainage Encounter Details Date Type Department Care Team (Late st Contact Info) Description 11/16/2020 11:30 AM HYDRAULIC [place]PER[place] [address] Adelita Martinez, [employer] [address] [place] [address] Pharyngitis, unspecified etiology (Primary Dx); Suspected 2019 novel coronavirus infection; Sore throat Social History Tobacco Use Types [...] Sign Reading Time Taken Comments Blood Pressure 122/90 11/16/2020 11:46 AM HYDRAULIC OPERATOR Pulse 119 11/16/2020 11:46 AM HYDRAULIC OPERATOR Temperature 36.9 ??C (98.4 ??F) 11/16/2020 11:[address] Respiratory Rate 18 11/16/2020 11:46 AM HYDRAULIC OPERATOR Oxygen Saturation 99% 11/16/2020 11:46 AM HYDRAULIC OPERATOR Inhaled Oxygen Concentration - - Weight 71.7 kg (158 lb) 11/16/2020 11:46 AM HYDRAULIC OPERATOR Height 167.6 cm (5' 6 ) 11/16/2020 11:46 AM HYDRAULIC OPERATOR Body Mass Index 25.5 11/16/2020 11:46 AM HYDRAULIC OPERATOR documented in this encounter Patient Instructions * Patient Instructions* Adelita Martinez APN - 11/16/2020 11:30 AM HYDRAULIC OPERATOR Images from the original note were not included. Take Azithromycin 500 mg today, 250 mg days 2-5. (pharyngitis) *Office will call you ONLY if COVID-19 results are POSITIVE. Please look at your [email or web address] for your results. *It is important to self-isolate until you get the results of your COVID-19 test. It is important that if you have children, they should not be in school while you wait for your results. *Try to recall who you have been around in the 2 days prior to your symptoms onset, or if asymptomatic, prior to the specimen being collected. *This information will help facilitate prompt identification of close contacts if the test is positive. *Please answer the phone if your local health department calls. The health department is working toslow and prevent the spread of the virus in the community. All information provided to your local health department is confidential; your name is NOT disclosed to any close contacts, they are only told that they might have been exposed to COVID-19. Due to COVID-19 exposure or symptoms, recommend taking these over the counter supplements for 10-14days, if you are medically able to take them. (Take what you would like or can afford). Vitamin C 500 mg twice daily, Quercetin 250-500 mg twice daily, Zinc picolinate or regular Zinc 75-100 mg daily, Vitamin [id number] units/daily, melatonin 6- 12 mg at night, Pepcid (famotidine) 20-40 mg daily and N-ACETYL CYSTEINE (NAC) 600 mg daily. If you are Covid-19 positive, recommend taking baby aspirin 81 mg daily as long as you do not have a history of gastrointestinal bleeds, ulcers, on anticoagulants. Treat your symptoms as appropriate; Symptomatic treatment. Frequent handwashing. Rest as much as possible. Get adequate sleep. Drink plenty of liquids (Increase water intake, may drink seltzer water, Gatorade, Pedialyte). Salt water gargles for irritated / sore throat. Change your toothbrush in 2 days after antibiotic has been started. Humidified air. Honey can help with your cough. Avoid alcohol. Do not smoke. Do not force solid food if your appetite isoff, start with soft and bland foods if needed. OTC medications can help treat specific symptoms. Tylenol or ibuprofen are effective for mild discomfort and fever. Usual duration of viral illness is 5-7 days, but may last up to 2 weeks. For smokers, 3-4 additional days. Cough may persist after other symptoms have resolved. If you develop sharp ear pain, fever over 101.5, or cough producing significant amounts of foul sputum, call the office or seek a medical provider promptly. If your symptoms or overall condition worsens significantly, call the office or seekmedical care. 9 Things To Do While waiting for test results of COVID-19 Stay home. While you wait you should stay in isolation; try to separate yourself from other people and animals in your home. Don't go to school, work, or public areas. And don't use public transportation, ride-shares, or taxis unless you have no choice. Leave your home only if you need to get medical care. But call the doctor's office first so they know you're coming, and wear a cloth face cover when you go. Call your doctor. Call your doctor or other health professional to let them know if symptoms worsen. Wear a face cover when you are around other people. It can help stop the spread of the virus when you cough or sneeze. Limit contact with people in your home. If possible, stay in a separate bedroom and use a separate bathroom. Avoid contact with pets and other animals. Cover your mouth and nose with a tissue when you cough or sneeze. Then throw it in the trash right away. Wash your hands often, especially after you cough or sneeze. Use soap and water, and scrub for at least 20 seconds. If soap and water aren't available, use an alcohol-based hand car seat coverer. Don't share personal household items. These include bedding, towels, cups and glasses, and eating utensils. Clean and disinfect your home every day. Use household nursing coordinator or disinfectant wipes or sprays. Take special care to clean things that you grab with your hands. These include doorknobs, remote controls, phones, and handles on your refrigerator and microwave. And don't forget countertops, tabletops, bathrooms, and computer keyboards. When to Contact Your Healthcare Provider Call your healthcare provider right away if: ??? You have trouble breathing when you???re resting. ??? You have trouble breathing when you walk short distances. An example of a short distance is walking from one room to another, about 25 feet (7.6 meters). ??? You???re getting chemotherapy and have a new fever of 100.4 ??F (38 ??C) or higher. ??? You have a fever of 102 ??F (38.9 ??C) or higher that lasts for 24 hours and doesn???t get better after you take acetaminophen. ??? You have blood in your sputum. ??? You have chest pain. ??? You have a very bad headache. ??? You have questions or concerns. When to Seek Medical Attention If you develop emergency warning signs for COVID-19 get medical attention immediately. Emergency warning signs include*: ??? Trouble breathing ??? Persistent pain or pressure in the chest ??? New confusion or inability to arouse ??? Bluish lips or face *This list is not all inclusive. Talking with children about Coronavirus Disease 2019 Messages for parents, school staff, and others working with children Espa??ol As public conversations around coronavirus disease 2019 (COVID-19) increase, children may worry about themselves, their family, and friends getting ill with COVID-19. Parents, family members, school staff, and other trusted adults can play an important role in helping children make sense of what they hear in a way that is honest, accurate, and minimizes anxiety or fear. [facility] has created guidance to help adults have conversations with children about COVID-19 and ways they can avoid getting and spreading the disease. General principles for talking to children Remain calm and reassuring. ??? Remember that children will react to both what you say and how you say it. They will sweet pickled fruit maker cues from the conversations you have with them and with others. Make yourself available to listen and to talk. ??? Make time to talk. Be sure children know they can come to you when they have questions. Avoid language that might blame others and lead to stigma. ??? Remember that viruses can make anyone sick, regardless of a person???s race or ethnicity. Avoidmaking assumptions about who might have COVID-19. Pay attention to what children see or hear on television, radio, or online. ??? Consider reducing the amount of screen time focused on COVID-19. Too much information on one topic can lead to anxiety. Provide information that is honest and accurate. ??? Give children information that is truthful and appropriate for the age and developmental level of the child. ??? Talk to children about how some stories on COVID-19 on the Internet and social media may be based on rumors and inaccurate information. Teach children everyday actions to reduce the spread of germs. ??? Remind children to stay away from people who are coughing or sneezing or sick. ??? Remind them to cough or sneeze into a tissue or their elbow, then throw the tissue into the trash. ??? Discuss any new actions that may be taken at school to help protect children and school staff. (e.g., increased handwashing, cancellation of events or activities) ??? Get children into a handwashing habit. ??? Teach them to wash their hands with soap and water for at least 20 seconds, especially after blowing their nose, coughing, or sneezing; going to the bathroom; and before eating or preparing food. ??? If soap and water are not available, teach them to use hand car seat coverer. Hand car seat coverer should contain at least 60% alcohol. Supervise young children when they use hand car seat coverer to prevent swallowing alcohol, especially in schools and housekeeper child care facilities. Facts about COVID-19 for discussions with children Try to keep information simple and remind them that health and school officials are working hard tokeep everyone safe and healthy. What is COVID-19? COVID-19 is the short name for ???coronavirus disease 2019.?? It is a new virus. Doctors and scientists are still learning about it. ??? Recently, this virus has made a lot of people sick. Scientists and doctors think that most people will be ok, especially kids, but some people might get pretty sick. ??? Doctors and health experts are working hard to help people stay healthy. What can I do so that I don???t get COVID-19? You can practice healthy habits at home, school, and play to help protect against the spread ofCOVID-19: ??? Cough or sneeze into a tissue or your elbow. If you sneeze or cough into a tissue, throw it in the trash right away. ??? Keep your hands out of your mouth, nose, and eyes. This will help keep germs out of your body. ??? Wash your hands with soap and water for at least 20 seconds. Follow these five steps--wet, lather (make bubbles), scrub (rub together), rinse and dry. You can sing the ???Happy Birthday?? song twice. ??? If you don???t have soap and water, have an adult help you use a special hand still cleaner tube. ??? Keep things clean. Older children can help adults at home and school clean the things we touch the most, like desks, doorknobs, light switches, and remote controls. (Note for adults: you can findmore information about cleaning and disinfecting on [facility]???s website.) ??? If you feel sick, stay home. Just like you don???t want to get other people???s germs in your body, other people don???t want to get your germs either. What happens if you get sick with COVID-19? COVID-19 can look different in different people. For many people, being sick with COVID-19 would be a little bit like having the flu. People can get a fever, cough, or have a hard time taking deep breaths. Most people who have gotten COVID-19 have not gotten very sick. Only a small group of people who get it have had more serious problems. From what doctors have seen so far, most children don???t seem to get very sick. While a lot of adults get sick, most adults get better. ??? If you do get sick, it doesn???t mean you have COVID-19. People can get sick from all kinds of germs. What???s important to remember is that if you do get sick, the adults at home and school willhelp get you any help that you need. ??? If you suspect your child may have COVID-19, call the healthcare facility to let them know before you bring your child in to see them. Resources ??? CDC???s COVID-19 website ??? Talking to Children about COVID-19pdf iconexternal icon, developed by the National Association of School Nurses and the National Association of School Psychologists. Also available in Spanishpdf iconexternal icon. ??? Helping Children [place] with Emergencies & Information about Coronavirus Disease 2019 On This Page ??? Women ??? During or Delivery ??? Infants ??? COVID-19 is a new disease and we are still learning how it spreads, the severity of illness it causes, and to what extent it may spread in the [place]. Women What is the risk to women of getting COVID-19? Is it easier for women to become ill with the disease? If they become infected, will they be more sick than other people? We do not currently know if women have a greater chance of getting sick from COVID-19 thanthe general public nor whether they are more likely to have serious illness as a result. women experience changes in their bodies that may increase their risk of some infections. With viruses from the same family as COVID-19, and other viral respiratory infections, such as influenza, womenhave had a higher risk of developing severe illness. It is always important for women to protect themselves from illnesses. How can women protect themselves from getting COVID-19? women should do the same things as the general public to avoid infection. You can help stop the spread of COVID-19 by taking these actions: ??? Cover your cough (using your elbow is a good technique) ??? Avoid people who are sick ??? Clean your hands often using soap and water or alcohol-based hand car seat coverer You can find additional information on preventing COVID-19 disease at [facility]s (Prevention for 2019 Novel Coronavirus). Can COVID-19 cause problems for a ? We do not know at this time if COVID-19 would cause problems during or affect the health of the baby after . During or Delivery Can COVID-19 be passed from a woman to the fetus or ? We still do not know if a woman with COVID-19 can pass the virus that causes COVID-19 to her fetus or baby during or delivery. No infants born to mothers with COVID-19 have tested positive for the COVID-19 virus. In these cases, which are a small number, the virus was not found in samples of amniotic fluid or breastmilk. Infants If a woman has COVID-19 during , will it hurt the baby? We do not know at this time what if any risk is posed to infants of a woman who has COVID-19. There have been a small number of reported problems with or delivery (e.g. ) in babies born to mothers who tested positive for COVID-19 during their . However, it is not clear that these outcomes were related to maternal infection. Interim Guidance on for a Mother Confirmed or Under Investigation For COVID-19 This interim guidance is intended for women who are confirmed to have COVID-19 or are lbahidf-dukic-ntpiczjrypijd (PUI) for COVID-19 and are currently . This interim guidance is based onwhat is currently known about COVID-19 and the transmission of other viral respiratory infections. CDC will update this interim guidance as needed as additional information becomes available. For guidance in the immediate setting, refer to Interim Considerations for Infection Prevention and Control of 2019 Coronavirus Disease 2019 (COVID-19) in Inpatient Obstetric Healthcare Settings. Transmission of COVID-19 through breast milk Much is unknown about how COVID-19 is spread. Ipotkk-ua-ctfxpk spread is thought to occur mainly via respiratory droplets produced when an infected person coughs or sneezes, similar to how influenza (flu) and other respiratory pathogens spread. In limited studies on women with COVID-19 and another coronavirus infection, Severe Acute Respiratory Syndrome (SARS-CoV), the virus has not been detectedin breast milk; however we do not know whether mothers with COVID-19 can transmit the virus via breast milk. CDC guidance for other infectious illnesses Breast milk provides protection against many illnesses. There are rare exceptions when or feeding expressed breast milk is not recommended. CDC has no specific guidance for during infection with similar viruses like SARS-CoV or Respiratory Syndrome (MERS-CoV). Outside of the immediate setting, CDC recommends that a mother with flu continue or feeding expressed breast milk to her infant while taking precautions to avoid spreading the virus to her . Guidance on for mothers with confirmed COVID-19 or under investigation for COVID-19 Breast milk is the best source of nutrition for most infants. However, much is unknown about COVID-19. Whether and how to start or continue should be determined by the mother in coordination with her family and healthcare providers. A mother with confirmed COVID-19 or who is a symptomatic PUI should take all possible precautions to avoid spreading the virus to her infant, including washing her hands before touching the and wearing a face mask, if possible, while feeding at the breast. If expressing breast milk with a manual or electric breast pump, the mother should wash her hands before touching any pump or bottle parts and follow recommendations for proper pump cleaning after each use. If possible, consider having someone who is well feed the expressed breast milk to the infant. AULIC OPERATOR documented in this encounter Progress Notes * Adelita Martinez APN - 11/16/2020 11:30 AM CST [facility] [place] [id number] 11/16/2020 [facility] COVID-19 Resources & Preparedness CC: Viral Illness - possible COVID-19 or Influenza Chief Complaint Patient presents with ??? Sore Throat symptoms started yesterday' pt has a sore throat and a little bit of sinus drainage SUBJECTIVE: Patient ID: Michelle Gomez (Michelle) is a 35 y.o. female [facility] for evaluation of sore throat. Duration x1 day. Symptoms include a sore throat, and some sinus drainage. Denies fever, aches, headache, sinus pain or pressure, fatigue, cough, shortness of breath, nausea, vomiting, or diarrhea. She denies exposure to COVID-19, strep throat, or mono. States that she stays at homewith her 3-month-old, currently nursing and other children. Her is currently undergoing chemo at [place] at this time, he does come home between treatment, his last COVID-19 test yesterday was negative. She is in no acute distress at this time. HPI Symptoms: Fever: no fever Current symptoms: post nasal drip and sore throat Denies:??chills, headache, eye drainage/discharge, sinus pressure, sneezing, non productive cough, productive cough, body aches , shortness of breath/difficulty breathing, fatigue, myalgia/body aches, new loss of taste or smell, rhinorrhea, nausea or vomiting, diarrhea and intermittent abdominal pain/discomfort Symptoms present for the past 1 day Any home treatments used (bofm-qbm-btwyulr or prescription medications):??none She reports that she has never smoked. She has never used smokeless tobacco. Patient is screened for potential indicators of severe disease: ?? New/worsening breathing or shortness of breath ?? Constant pain or pressure in chest or abdomen ?? Confusion, decreased responsiveness ?? Severe or persistent vomiting ?? Unable to keep liquids down ?? Signs of dehydration (dizziness/reduced urination ?? Experiencing seizures ?? New onset of rash - - - Patient denies any of the above concerns. Evaluation for Anti-Influenza Neuraminidase Inhibitor Rx: * NOT indicated Additional medical Concerns: - positive concerns for htn Medications: No current outpatient medications on file. (Antiasthmatic, Misc. Respiratory) Current Outpatient Medications (Other) Medication Sig ??? labetalol (NORMODYNE) 100 MG tablet TK 1 T PO QD ??? magnesium 200 MG TABS tablet Take 200 mg by mouth daily. ??? nortriptyline (PAMELOR) 10 MG capsule Take 3 capsules by mouth nightly. ??? SUMAtriptan succinate (IMITREX) 100 MG tablet Take 1 tablet by mouth as needed for Migraine. MAX 2 per day. ??? azithromycin (ZITHROMAX) 250 MG tablet Take 2 tabs day 1, 1 tab days 2-5 Allergies: Allergies Allergen Reactions ??? Augmentin [Amoxicillin-Pot Clavulanate] Nausea And Vomiting Patient's medications, allergies, past medical, surgical, social and family histories were reviewedand updated as appropriate. She has a past medical history of Acute sinusitis, Carpal tunnel syndrome, Cervical spondylosis (12/21/2019), Gastroenteritis, Headache, Migraines, and Panic attack. Current Outpatient Medications on File Prior to Visit Medication Sig Dispense Refill ??? labetalol (NORMODYNE) 100 MG tablet TK 1 T PO QD ??? magnesium 200 MG TABS tablet Take 200 mg by mouth daily. ??? nortriptyline (PAMELOR) 10 MG capsule Take 3 capsules by mouth nightly. 270 capsule 0 ??? SUMAtriptan succinate (IMITREX) 100 MG tablet Take 1 tablet by mouth as needed for Migraine. MAX 2 per day. 9 tablet 0 No current facility-administered medications on file prior to visit. OBJECTIVE: BP 122/90 (BP Location: [facility], BP Position: sitting, BP Cuff Size: Reg) Pulse 119 Temp 36.9 ??C (98.4 ??F) (Temporal) Resp 18 Ht 1.676 m (5' 6 ) Wt 71.7 kg (158 lb) SpO2 99% BMI 25.50 kg/m?? Physical Exam General - alert, well appearing, and in no distress and oriented to person, place, and time Ears - bilateral TM's and external ear canals normal, right ear normal, left ear normal Nose - mucosal erythema Mouth - erythematous Neck - adenopathy noted submandibular Chest - clear to auscultation, no wheezes, rales or rhonchi, symmetric air entry, no tachypnea, retractions or cyanosis Cardiac- normal exam regular rate & rhythm ASSESSMENT: 1. Pharyngitis, unspecified etiology 2. Suspected 2019 novel coronavirus infection 3. Sore throat PLAN: Lack of antibiotic effectiveness discussed with Michelle. Take Azithromycin 500 mg today, 250 mg days 2-5. (pharyngitis) *Office will call you ONLY if COVID-19 results are POSITIVE. Please look at your [email or web address] for your results. *It is important to self-isolate until you get the results of your COVID-19 test. It is important that if you have children, they should not be in school while you wait for your results. *Try to recall who you have been around in the 2 days prior to your symptoms onset, or if asymptomatic, prior to the specimen being collected. *This information will help facilitate prompt identification of close contacts if the test is positive. *Please answer the phone if your local health department calls. The health department is working toslow and prevent the spread of the virus in the community. All information provided to your local health department is confidential; your name is NOT disclosed to any close contacts, they are only told that they might have been exposed to COVID-19. Due to COVID-19 exposure or symptoms, recommend taking these over the counter supplements for 10-14days, if you are medically able to take them. (Take what you would like or can afford). Vitamin C 500 mg twice daily, Quercetin 250-500 mg twice daily, Zinc picolinate or regular Zinc 75-100 mg daily, Vitamin [id number] units/daily, melatonin 6- 12 mg at night, Pepcid (famotidine) 20-40 mg daily and N-ACETYL CYSTEINE (NAC) 600 mg daily. If you are Covid-19 positive, recommend taking baby aspirin 81 mg daily as long as you do not have a history of gastrointestinal bleeds, ulcers, on anticoagulants. Treat your symptoms as appropriate; Symptomatic treatment. Frequent handwashing. Rest as much as possible. Get adequate sleep. Drink plenty of liquids (Increase water intake, may drink seltzer water, Gatorade, Pedialyte). Salt water gargles for irritated / sore throat. Change your toothbrush in 2 days after antibiotic has been started. Humidified air. Honey can help with your cough. Avoid alcohol. Do not smoke. Do not force solid food if your appetite isoff, start with soft and bland foods if needed. OTC medications can help treat specific symptoms. Tylenol or ibuprofen are effective for mild discomfort and fever. Usual duration of viral illness is 5-7 days, but may last up to 2 weeks. For smokers, 3-4 additional days. Cough may persist after other symptoms have resolved. If you develop sharp ear pain, fever over 101.5, or cough producing significant amounts of foul sputum, call the office or seek a medical provider promptly. If your symptoms or overall condition worsens significantly, call the office or seekmedical care. See Patient Instructions (After Visit Summary) for additional details & instructions regarding Self Care &/or Prevention of COVID-19 Infection Medications prescribed: Orders Placed This Encounter Medications ??? DISCONTD: azithromycin (ZITHROMAX) 250 MG tablet Sig: Take 2 tabs day 1, 1 tab days 2-5 Dispense: 6 tablet Refill: 0 Order Specific Question: Supervising Provider? Answer: KATHY FENTON [[id number]] ??? azithromycin (ZITHROMAX) 250 MG tablet Sig: Take 2 tabs day 1, 1 tab days 2-5 Dispense: 6 tablet Refill: 0 Order Specific Question: Supervising Provider? Answer: KATHY FENTON [[id number]] Other Orders: Orders Placed This Encounter Procedures ??? CoronaVirus SARS CoV-2 PCR ??? AMB POCT Rapid Strep A COVID COUNSELING CHECK LIST [x] Discuss the need for immediate isolation, even before results of the test are available. [x] Advise patients to inform their immediate household/contacts that they may wish to be tested and self-isolate as well. Review locations and people they have been in contact with in the past two weeks. [x] Review the signs and symptoms of COVID-19. [x] Inform patients that if positive, they will likely be contacted by a public health worker and asked to provide a list of the people they've been with for contract tracing, encourage them to 'answer the call'. [x] Discuss services that might help the patient successfully isolate and quarantine at home. *Office will call you with COVID-19 results. *It is important to self-isolate until you get the results of your COVID-19 test. *Try to recall who you have been around in the 2 days prior to your symptoms onset, or if asymptomatic, prior to the specimen being collected. *This information will help facilitate prompt identification of close contacts if the test is positive. *Please answer the phone if your local health department calls. The health department is working toslow and prevent the spread of the virus in the community. All information provided to your local health department is confidential; your name is NOT disclosed to any close contacts, they are only told that they might have been exposed to COVID-19. She is instructed to call or return to clinic if these symptoms worsen or fail to improve as anticipated. Questions have been answered, patient verbalizes understanding and agreement with plan. Education has been provided. To ER/911 if condition deteriorates significantly. We discussed at length (over 15 minutes) COVID-19, symptoms, treatments, breast feeding/nursing; information provided to Michelle with much needed support. In addition, we discussed her B/P being elevated, have this rechecked as a nurse visit if it remains high at home, and f/u with PCP if needed. Adelita Martinez APN Disclaimer: Note: To increase efficiency, your provider [...] patients current complaints and physical condition as appropriate. AULIC OPERATOR documented in this encounter Plan of Treatment Not on file documented as of this encounter Goals Goal Patient Goal Type Associated Problems Recent Progress Patient-Stated? Author Use sunscreen daily Lifestyle No Divya Cr RN Frequent Skin Checks Lifestyle No Divya Cr RN documented as of this encounter Procedures Procedure Name Priority Date/Time Associated Diagnosis Comments AMB POCT RAPID STREP A Routine 11/16/2020 Suspected 2019 novel coronavirus infection documented in this encounter Results * CoronaVirus SARS CoV-2 PCR (11/16/2020 11:40 AM HYDRAULIC OPERATOR) SARS-CoV-2 PCR NOT DETECTED NDET 11/17/2020 6:53 AM HYDRAULIC OPERATOR [facility] Comment: ---- A Not Detected result indicates that SARS-CoV-2 RNA is not present in the patient's specimen. This result may be influenced by the stage of the viral infection and the quality of the specimen collected for testing. Test results should be correlated in the clinical context of each patient. This assay utilizes the [employer] COVID-19 Combo Kit with RNA isolation performed on the Popdust Purification System and RT PCR performed on the Tyrogenex 12Party Earth Flex Real time PCR system. ?? TESTING PERFORMED AT [facility], [facility] [place] [address] The test was developed and its performance characteristics determined by [facility]. It has not been cleared or approved by the FDA. Such approval is not required for clinical implementation and the test results have been shown to be clinically useful. This laboratory is CAP accredited and CLIA certified to perform high complexity testing. Performed at [facility], [address] [place] [address], ([phone], unless otherwise noted. FIRST TEST UNKNOWN 11/16/2020 1:26 PM [facility] EMPLOYED IN HEALTHCARE NO 11/16/2020 1:26 PM [facility] SYMPTOMATIC DEFINED BY CDC YES 11/16/2020 1:26 PM [facility] DATE OF SYMPTOM ONSET 2020111511/16/2020 1:26 PM [facility] HOSPITALIZED NO 11/16/2020 1:26 PM [facility] ICU NO 11/16/2020 1:26 PM [facility] RESIDENT IN CONGREGATE SETTING NO 11/16/2020 1:26 PM [facility] NOT 11/16/2020 1:26 PM [facility] Blood specimen (specimen) NASOPHARYNGEAL SWAB / Unknown 11/16/2020 11:40 AM HYDRAULIC OPERATOR 11/16/2020 1:39 PM HYDRAULIC OPERATOR Adelita DELANEYN MICROBIOLOGY - GENERAL OR DERABLES Final Result [facility] [address] [place], [place] [phone] [facility] [address] [place] [address] [facility] [address] [place] [address] * AMB POCT Rapid Strep A (11/16/2020) Rapid Strep A Screen Negative Negative [facility] 11/16/2020 Adelita Martinez SHIPWRIGHT POINT OF CARE TEST ORDERA BLES Final Result [facility] documented in this encounter Visit Diagnoses Diagnosis Pharyngitis, unspecified etiology- Primary Suspected 2019 novel coronavirus infection Sore throat Acute pharyngitis documented in this encounter Additional Health Concerns Assessment Noted Time PHQ-9 Depression Total Score: 0 10/07/20 19 10:06 AM HYDRAULIC OPERATOR documented as of this encounter Care Teams Color Maker Formulator Relationship Specialty Start Date End Date Kathy Fenton MD [address] [facility] [address] [place] [address] PCP - General Podiatry 08/23/15 documented as of this encounter
--- OUTSIDE RECORDS SUMMARY | 2024-11-30 10:16 | XMS_ITS | Encounter Summary ---
Author Organization [id number]. Address [address] [place] [address] Care Team Providers Care Belting Inspector Name Role Phone Delonte Marin MD Primary Care Provider [phone] Reason for Visit * Reason Comments Fatigue Anxiety Encounter Details Date Type Department Care Team (Late st Contact Info) Description 08/21/2021 9:00 AM CDT Office Visit [address] [place] [address] Delonet Marin MD [address] [place] [address] [address] [place] [address] Chronic fatigue (Primary Dx); Panic attacks Social History Tobacco Use Types Packs/Day Years [...] Sign Reading Time Taken Comments Blood Pressure 120/70 08/21/2021 9:20 AM CDT Pulse 101 08/21/2021 9:20 AM CDT Temperature 35.9 ??C (96.6 ??F) 08/21/2021 9:20 AM CD T Respiratory Rate - - Oxygen Saturation 97% 08/21/2021 9:20 AM CDT Inhaled Oxygen Concentration - - Weight 74.9 kg (165 lb 3.2 oz) 08/21/2021 9:20 A M CDT Height 167.6 cm (5' 6 ) 08/21/2021 9:20 AM CDT Body Mass Index 26.66 08/21/2021 9:20 AM CDT documented in this encounter Progress Notes * Delonte Marin MD - 08/21/2021 9:00 AM CDT [address] [facility] [address] Dept: [phone] Dept Loc: [phone] Loc Date: 08/21/2021 Name: Michelle Gomez : 1985 PCP: Delonte Marin MD Subjective: Patient ID: Michelle Gomez is a 36 y.o. female. CC: Michelle Gomez is a 36 y.o. patient is seen today for Chief Complaint Patient presents with ??? Fatigue ??? Anxiety NOTE: Abbreviations, medical idioms and medical [...] face masks as recommended by the CDC, [facility], and [place] COVID-19 Guidelines. HPI Fatigue. Patient is seen for fatigue. This is a new problem. She says it started several months ago. It is not getting worse. She denies chest pain, chills, dyspnea, fever, and weight loss. She has a history of anxiety. Recent lab work: TSH Date Value Ref Range Status 08/21/2021 1.23 0.36 - 3.74 m[IU]/L Final Lab Results Component Value Date HGB 12.3 08/21/2021 HCT 37.3 08/21/2021 Wt Readings from Last 3 Encounters: 08/21/21 74.9 kg (165 lb 3.2 oz) 04/18/21 75.8 kg (167 lb 3.2 oz) 01/12/21 76.5 kg (168 lb 9.6 oz) Anxiety. I get panic attacks in the shower. Rarely other times. They only last 5 minutes. No known cause. i used to take the sertraline. I never took the Lexapro. Patient is seen for anxiety. She has anxiety for for several years. She is not presently on any medication and nothing OTC has helped. She also has insomnia, and concentration problems. She denies panic attacks and suicidal ideation. She would like a medication. Panic attacks. I Iet panic attacks in the shower. Rarely other times. They only last 5 minutes. No known cause. i used to take the sertraline. I never took the Lexapro. Patient is seen for panic attacks. She is presently at baseline. This is a new diagnosis.. See medication list for current anxiety medications. She takes her medication consistently and has no side effects. She denies suicidal ideation. Patient's medications, allergies, past medical, surgical, social and family histories were reviewedand updated as appropriate. Review of Systems A 14-point ROS was performed. Additional ROS detailed in the HPI. Constitutional: No fever No chills. Fatigue . HEENT: No sore throat No earache. [...] [place] . Psychiatric/Behavioral: No amnesia No anxiety. Panic. Objective: Blood pressure 120/70, pulse 101, temperature (!) 35.9 ??C (96.6 ??F), temperature source Tympanic,height 1.676 m (5' 6 ), weight 74.9 kg (165 lb 3.2 oz), SpO2 97 %., BMI Body mass index is 26.66 kg/m??. Physical Exam Constitutional: Oriented to person, [...] magnesium 200 MG TABS tablet, 0 ??? SUMAtriptan succinate (IMITREX) 100 MG tablet, 0 ??? tazarotene (AVAGE) 0.1 % cream, 0 ??? [DISCONTINUED] nortriptyline (PAMELOR) 10 MG capsule, 0 ??? [DISCONTINUED] labetalol (NORMODYNE) 100 MG tablet, 0 Assessment/Plan: Problem List Items Addressed This Visit Chronic fatigue - Primary Relevant Orders TSH (Completed) CBC and differential Panic attacks Relevant Orders TSH (Completed) CBC and differential BMI: Body mass index is 26.66 kg/m??. Wt Readings from Last 3 Encounters: 08/21/21 74.9 kg (165 lb 3.2 oz) 04/18/21 75.8 kg (167 lb 3.2 oz) 01/12/21 76.5 kg (168 lb 9.6 oz) ASSESSMENT & PLAN: 1. Chronic fatigue STATUS: Chronic. Lab Results Component Value Date TSH 1.23 08/21/2021 TSH 1.77 01/12/2021 TSH 2.03 11/13/2018 RECOMMENDATIONS: Continue safe exercise. FOLLOW UP: Follow up in two months. Telephone us or return to office if worse. MEDICATION: ORDERS: - TSH; Future - CBC and differential; Future 2. Panic attacks STATUS: New Panic attacks. Discussed. Discussed that it is harder to control Panic vs Anxiety. RECOMMENDATIONS: Try to avoid stressful situations. FOLLOW UP: Follow up in one month. Telephone us or return to office if worse. MEDICATION: Will try Effexor / venlafaxine 37.5 mg for first month. Discussed the risks vs benefitsvs side effects vs alternatives of this medication with patient. She understands the risks and wishes to take the medication. Will try Ativan / lorazepam 0.5 mg daily as needed. Discussed the risks vs benefits vs side effects vs alternatives of benzodiazepines with patient. She understands the risks and wishes to take the medication. ORDERS: - TSH; Future - CBC and differential; Future Questions have been answered. Patient verbalizes understanding and agreement with the plan. Education has been provided. ORDERS:No orders of the defined types were placed in this encounter. TESTS: Hospital Outpatient Visit on 08/21/2021 Component Date Value Ref Range Status ??? TSH 08/21/2021 1.23 0.36 - 3.74 m[IU]/L Final ??? WBC 08/21/2021 5.61 4.00 - 11.00 10*3/uL Final ??? RBC 08/21/2021 4.21 3.80 - 5.80 10*6/uL Final ??? HGB 08/21/2021 12.3 11.5 - 16.5 g/dL Final ??? HCT 08/21/2021 37.3 37.0 - 47.0 % Final ??? MCV 08/21/2021 88.6 76 - 99 fL Final ??? MCH 08/21/2021 29.2 27.0 - 32.0 pg Final ??? MCHC 08/21/2021 33.0 30.0 - 35.0 g/dL Final ??? Platelets 08/21/2021 232 135 - 470 10*3/uL Final ??? RDW-CV 08/21/2021 12.0 11.0 - 17.0 % Final ??? MPV 08/21/2021 11.6 8.0 - 12.5 fL Final ??? Differential Type 08/21/2021 AUTOMATED DIFFERENTIAL Final ??? Neutrophil % 08/21/2021 63.3 45.0 - 75.0 % Final ??? Lymphocytes % 08/21/2021 23.7 20.0 - 45.0 % Final ??? Monocyte % 08/21/2021 8.0 0.0 - 10.0 % Final ??? Eosinophils Relative % 08/21/2021 3.9 0.0 - 5.0 % Final ??? Basophils % 08/21/2021 0.9 0.0 - 2.0 % Final ??? Immature Granulocytes% 08/21/2021 0.2 0.0 - 1.6 % Final ??? Neutrophils Absolute 08/21/2021 3.55 2.00 - 7.90 10*3/uL Final ??? Lymphocytes Absolute 08/21/2021 1.33 1.00 - 4.00 10*3/uL Final ??? Monos Absolute 08/21/2021 0.45 0.00 - 0.80 10*3/uL Final ??? Eosinophils Absolute Count 08/21/2021 0.22 0.00 - 0.40 10*3/uL Final ??? Basophils Absolute 08/21/2021 0.05 0.00 - 0.10 10*3/uL Final ??? Immature Granulocytes Absolute 08/21/2021 0.01 0.0 - 0.20 10*3/uL Final Next Visit: No follow-ups on file. Encounter of: 08/21/2021 Signed: Delonte Marin MD 09/18/2021 9:08 AM documented in this encounter Plan of Treatment Not on file documented as of this encounter Goals Goal Patient Goal Type Associated Problems Recent Progress Patient-Stated? Author Blood Pressure < 140/90 Blood Pressure 118/82(2024 10:05 AM REVENUE CYCLE CONSULTANT) No Delonte Marin MD Use sunscreen daily Lifestyle No Divya Cr, RN Frequent Skin Checks Lifestyle No Divya Cr, RN documented as of this encounter Results * TSH (08/21/2021 9:55 AM CDT) TSH 1.23 0.36 - 3.74 m[IU]/L 08/21/2021 1:05 PM CDT [facility] Serum 08/21/2021 9:55 AM CDT 08/21/2021 12:01 PM CDT us Delonte Marin MD LAB BLOOD ORDERABLES Final Result [facility] [address] [place], [place] [phone] [facility] [address] [place] [address] documented in this encounter Visit Diagnoses Diagnosis Chronic fatigue- Primary Other malaise and fatigue Panic attacks Panic disorder without agoraphobia documented in this encounter Additional Health Concerns Assessment Noted Time PHQ-9 Depression Total Score: 0 10/07/20 19 10:06 AM REVENUE CYCLE CONSULTANT documented as of this encounter Care Teams Belting Inspector Relationship Specialty Start Date End Date Delonte Marin MD [address] [facility] [address] [place] [address] PCP - General Podiatry 08/23/15 documented as of this encounter
--- OUTSIDE RECORDS SUMMARY | 2024-11-30 10:16 | XMS_ITS | Encounter Summary ---
Author Organization [employer] Address [address] [place], [place] [id number] Care Team Providers Care Welding Machine Operator Electro Gas Name Role Phone Delonte Marin MD Primary Care Provider [phone]- [phone] Reason for Visit * Reason Comments Sinusitis possible sinus infec tion x 6 days Encounter Details Date Type Department Care Team (Late st Contact Info) Description 12/26/2019 11:30 AM SHIPPING & RECEIVING LEAD Office Visit [facility] [address] [id number] Roshni Pop, INTEGRATION ASSISTANT [address] [facility] [address] [id number] Acute non-recurrent maxillary sinusitis (Primary Dx) Social History Tobacco Use Types [...] Sign Reading Time Taken Comments Blood Pressure 106/78 12/26/2019 11:47 AM SHIPPING & RECEIVING LEAD Pulse 99 12/26/2019 11:47 AM SHIPPING & RECEIVING LEAD Temperature 37.2 ??C (98.9 ??F) 12/26/2019 11:[address] Respiratory Rate 16 12/26/2019 11:47 AM SHIPPING & RECEIVING LEAD Oxygen Saturation 99% 12/26/2019 11:47 AM SHIPPING & RECEIVING LEAD Inhaled Oxygen Concentration - - Weight 72.8 kg (160 lb 6.4 oz) 12/26/2019 11:47 AM SHIPPING & RECEIVING LEAD Height - - Body Mass Index 26.29 12/24/2019 9:22 AM SHIPPING & RECEIVING LEAD documented in this encounter Patient Instructions * Patient Instructions* Roshni Pop PERINATAL TECH - 12/26/2019 11:30 AM SHIPPING & RECEIVING LEAD Images from the original note were not included. Sinusitis: Care Instructions Your Care Instructions Sinusitis is an infection of the lining of the sinus cavities in your head. Sinusitis often followsa cold. It causes pain and pressure in your head and face. In most cases, sinusitis gets better on its own in 1 to 2 weeks. But some mild symptoms may last for several weeks. Sometimes antibiotics are needed. Follow-up care is a galvez part of your treatment and safety. Be sure to make and go to all appointments, and call your doctor if you are having problems. It's also a good idea to know your test resultsand keep a list of the medicines you take. How can you care for yourself at home? ?? Take an rhcf-tji-nzmmult pain medicine, such as acetaminophen (Tylenol), ibuprofen (Advil, Motrin), or naproxen (Aleve). Read and follow all instructions on the label. ?? If the doctor prescribed antibiotics, take them as directed. Do not stop taking them just because you feel better. You need to take the full course of antibiotics. ?? Be careful when taking dwfr-var-kzshuhd cold or flu medicines and Tylenol at the same time. Manyof these medicines have acetaminophen, which is Tylenol. Read the labels to make sure that you are not taking more than the recommended dose. Too much acetaminophen (Tylenol) can be harmful. ?? Breathe warm, moist air from a steamy shower, a hot bath, or a sink filled with hot water. Avoidcold, dry air. Using a humidifier in your home may help. Follow the directions for cleaning the machine. ?? Use saline (saltwater) nasal washes to help keep your nasal passages open and wash out mucus andbacteria. You can buy saline nose drops at a grocery store or drugstore. Or you can make your own at home by adding 1 teaspoon of salt and 1 teaspoon of baking soda to 2 cups of distilled water. If you make your own, fill a bulb syringe with the solution, insert the tip into your nostril, and squeeze gently. Blow your nose. ?? Put a hot, wet towel or a warm gel pack on your face 3 or 4 times a day for 5 to 10 minutes eachtime. ?? Try a decongestant nasal spray like oxymetazoline (Afrin). Do not use it for more than 3 days justice row. Using it for more than 3 days can make your congestion worse. When should you call for help? Call your doctor now or seek immediate medical care if: ? You have new or worse swelling or redness in your face or around your eyes. ? You have a new or higher fever. ??Watch closely for changes in your health, and be sure to contact your doctor if: ? You have new or worse facial pain. ? The mucus from your nose becomes thicker (like pus) or has new blood in it. ? You are not getting better as expected. Where can you learn more? Go to the Search Medical Library option found under the Resources tab in Whim [email or web address] If you do not have access to Whim, you can visit [email or web address] and select YouBeQB from the menu on the left. Enter I933 in the searchbox to learn more about Sinusitis: Care Instructions. Not on Whim? Go to [email or web address] and click the Sign Up Now linkto request an activation code. Current as of: June 14, 2019 Content Version: 12.3 ?? [id number] [employer]. Care instructions adapted under license by your healthcare professional. This care instruction is for use with your licensed healthcare professional. If you have questions about a medical condition or this instruction, always ask your healthcare professional. Ludin [employer]lick[employer] disclaims any warranty or liability for your use of this information. PING & RECEIVING LEAD documented in this encounter Progress Notes * Roshni Pop ARNP - 12/26/2019 11:30 AM CST Images from the original note were not included. Chief Complaint Patient presents with ??? Sinusitis possible sinus infection x 6 days Subjective: Patient ID: Michelle Gomez is a 34 y.o. female. Sinusitis This is a new problem. The current episode started in the past 7 days (Initially diagnosed with Influenza A 6 days ago, now in sinus). The problem has been gradually worsening since onset. The maximum temperature recorded prior to her arrival was 100.4 - 100.9 F. The pain is moderate. Associated symptoms include congestion, coughing, ear pain, headaches, sinus pressure, a sore throat and swollen glands. Pertinent negatives include no chills, diaphoresis, hoarse voice, neck pain, shortness of breath or sneezing. Past treatments include oral decongestants (Tamiflu, ). The treatment provided no relief. Patient's problem list, medications, allergies, past medical, surgical, social and family historieswere reviewed and updated as appropriate. Review of Systems Constitutional: Negative for chills and diaphoresis. HENT: Positive for congestion, ear pain, sinus pressure, sinus pain and sore throat. Negative for hoarse voice and sneezing. Respiratory: Positive for cough. Negative for shortness of breath. Musculoskeletal: Negative for neck pain. Neurological: Positive for headaches. Objective: BP 106/78 Pulse 99 Temp 37.2 ??C (98.9 ??F) (Tympanic) Resp 16 Wt 72.8 kg (160 lb 6.4 oz) SpO2 99% BMI 26.29 kg/m?? Body mass index is 26.29 kg/m??. Physical Exam Vitals signs and nursing note reviewed. HENT: Head: Normocephalic. Right Ear: Tympanic membrane normal. Left Ear: Tympanic membrane normal. Nose: Mucosal edema, congestion and rhinorrhea present. Mouth/Throat: Lips: [place]. Mouth: Mucous membranes are moist. Pharynx: Oropharynx is clear. Neck: Musculoskeletal: Neck supple. Cardiovascular: Rate and Rhythm: Normal rate and regular rhythm. Heart sounds: S1 normal and S2 normal. No murmur. Pulmonary: Effort: Pulmonary effort is normal. Breath sounds: Normal breath sounds and air entry. Lymphadenopathy: Head: Right side of head: Preauricular adenopathy present. Skin: General: Skin is warm and dry. Coloration: Skin is pale. Neurological: Mental Status: She is alert. Psychiatric: Behavior: Behavior is cooperative. Assessment/Orders: Diagnoses and all orders for this visit: Acute non-recurrent maxillary sinusitis - cefUROXime (CEFTIN) 500 MG tablet; Take 1 tablet by mouth 2 (two) times daily for 5 days. - dexamethasone (DECADRON) injection - methylPREDNISolone acetate (DEPO-MEDROL) injection Plan: Follow up if symptoms worsen or fail to improve. Patient Instructions Sinusitis: Care Instructions Your Care Instructions Sinusitis is an infection of the lining of the sinus cavities in your head. Sinusitis often followsa cold. It causes pain and pressure in your head and face. In most cases, sinusitis gets better on its own in 1 to 2 weeks. But some mild symptoms may last for several weeks. Sometimes antibiotics are needed. Follow-up care is a galvez part of your treatment and safety. Be sure to make and go to all appointments, and call your doctor if you are having problems. It's also a good idea to know your test resultsand keep a list of the medicines you take. How can you care for yourself at home? ?? Take an uoyy-lrj-bzuqqbz pain medicine, such as acetaminophen (Tylenol), ibuprofen (Advil, Motrin), or naproxen (Aleve). Read and follow all instructions on the label. ?? If the doctor prescribed antibiotics, take them as directed. Do not stop taking them just because you feel better. You need to take the full course of antibiotics. ?? Be careful when taking ybyw-xqg-bcmhsfn cold or flu medicines and Tylenol at the same time. Manyof these medicines have acetaminophen, which is Tylenol. Read the labels to make sure that you are not taking more than the recommended dose. Too much acetaminophen (Tylenol) can be harmful. ?? Breathe warm, moist air from a steamy shower, a hot bath, or a sink filled with hot water. Avoidcold, dry air. Using a humidifier in your home may help. Follow the directions for cleaning the machine. ?? Use saline (saltwater) nasal washes to help keep your nasal passages open and wash out mucus andbacteria. You can buy saline nose drops at a grocery store or drugstore. Or you can make your own at home by adding 1 teaspoon of salt and 1 teaspoon of baking soda to 2 cups of distilled water. If you make your own, fill a bulb syringe with the solution, insert the tip into your nostril, and squeeze gently. Blow your nose. ?? Put a hot, wet towel or a warm gel pack on your face 3 or 4 times a day for 5 to 10 minutes eachtime. ?? Try a decongestant nasal spray like oxymetazoline (Afrin). Do not use it for more than 3 days justice row. Using it for more than 3 days can make your congestion worse. When should you call for help? Call your doctor now or seek immediate medical care if: ? You have new or worse swelling or redness in your face or around your eyes. ? You have a new or higher fever. ??Watch closely for changes in your health, and be sure to contact your doctor if: ? You have new or worse facial pain. ? The mucus from your nose becomes thicker (like pus) or has new blood in it. ? You are not getting better as expected. Where can you learn more? Go to the Search Medical Library option found under the Resources tab in Whim [email or web address] If you do not have access to Whim, you can visit [email or web address] and select YouBeQB from the menu on the left. Enter I933 in the searchbox to learn more about Sinusitis: Care Instructions. Not on Whim? Go to [email or web address] and click the Sign Up Now linkto request an activation code. Current as of: June 14, 2019 Content Version: 12.3 ?? [id number] [employer]Kix. Care instructions adapted under license by your healthcare professional. This care instruction is for use with your licensed healthcare professional. If you have questions about a medical condition or this instruction, always ask your healthcare professional. Ludin [facility] hospitalCastlerock Rec[facility] Group disclaims any warranty or liability for your use of this information. PING & RECEIVING LEAD documented in this encounter Plan of Treatment Not on file documented as of this encounter Goals Goal Patient Goal Type Associated Problems Recent Progress Patient-Stated? Author Use sunscreen daily Lifestyle No Divya Cr, RN Frequent Skin Checks Lifestyle No Divya Cr RN documented as of this encounter Visit Diagnoses Diagnosis Acute non-recurrent maxillary sinusitis- Primary documented in this encounter Administered Medications Inactive Administered Medications - up to 3 most recent administrations Medication Order MAR Action Action Date Dose Rate Site dexamethasone (DECADRON) injection 4 mg, Intramuscular, ONCE, On 12/26/19 at 1230, For 1 doseIndications:Acute non-recurrent maxillary sinusitis Given 12/26/2019 12:07 PM SHIPPING & RECEIVING LEAD 4 mg Left Dorsogluteal methylPREDNISolone acetate (DEPO-MEDROL) injection 40 mg, Intramuscular, ONCE, On 12/26/19 at 1230, For 1 doseIndications:Acute non-recurrent maxillary sinusitis Given 12/26/2019 12:07 PM SHIPPING & RECEIVING LEAD 40 mg Left Dorsogluteal documented in this encounter Additional Health Concerns Assessment Noted Time PHQ-9 Depression Total Score: 0 10/07/20 19 10:06 AM SHIPPING & RECEIVING LEAD documented as of this encounter Care Teams Welding Machine Operator Electro Gas Relationship Specialty [place] [address] [place] [address] [address] [place] [address] PCP - General Podiatry 08/23/15 documented as of this encounter
--- OUTSIDE RECORDS SUMMARY | 2024-11-30 10:16 | XMS_ITS | Encounter Summary ---
Author Organization [facility] Address [address] [place] [address] Care Team Providers Care Soloist Dancer Name Role Phone Delonte Marin MD Primary Care Provider +1- [phone] Encounter Details Date Type Department Care Team (Latest Contact Info) Description 01/12/2021 Travel Social History Tobacco Use Types Packs/Day [...] COVID-19? No / Unsure 01/12/2021 1:07 PM TICKET COLLECTOR documented as of this encounter Plan of Treatment Not on file documented as of this encounter Goals Goal Patient Goal Type Associated Problems Recent Progress Patient-Stated? Author Blood Pressure < 140/90 Blood Pressure 118/82(2024 10:05 AM TICKET COLLECTOR) No Delonte Marin MD Use sunscreen daily Lifestyle No Divya Cr, RN Frequent Skin Checks Lifestyle No Divya Cr, RN documented as of this encounter Visit Diagnoses Not on filedocumented in this encounter Additional Health Concerns Assessment Noted Time PHQ-9 Depression Total Score: 0 10/07/20 10:06 AM TICKET COLLECTOR documented as of this encounter Care Teams Soloist Dancer Relationship Specialty Start Date End Date Delonte Marin MD [address] [facility] [address] [place] [address] PCP - General Podiatry 08/23/15 documented as of this encounter
--- OUTSIDE RECORDS SUMMARY | 2024-11-30 10:16 | XMS_ITS | Encounter Summary ---
Author Organization [employer] Address [address] [place] [address] Care Team Providers Care Press Feeder Broomcorn Name Role Phone Delonte Marin MD Primary Care Provider +1- [phone] Encounter Details Date Type Department Care Team (Late st Contact Info) Description 05/19/2020 11:00 AM CDT Ophth Exam [facility] [place] [address] [place] [address] Ortiz Diego MD [address] [place] [address] Frequent headaches (Primary Dx); Ophthalmic migraine; Migraine without status migrainosus, not intractable, unspecified migraine type Social History Tobacco Use Types Packs/Day [...] Progress Notes * Ortiz Diego MD - 05/19/2020 11:00 AM CDT Headaches. 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 Likely exacerbated by -induced hormonal changes. Patient was reassured that I do not see any signs of optic disc edema which would indicate intracranial pressure elevation. Patient was educated to monitor her symptoms. If they worsen significantly or she has more vision problems, she should return for reevaluation. Since the patient continues to be symptomatic with the headaches, I would definitely be more apt to perform a lumbar puncture to completely rule out increased intracranial pressure as a cause for her headaches. Patient was educated that the need for a lumbar puncture will be determined by , as he will determine if there is a significant need to definitively rule out increased intracranial pressure. No further follow-up scheduled with me, but I am always available as needed. -Nerve fiber layer OCT in each eye is within normal limits. No elevation of the nerve fiber layer or atrophy. Reliable scan OU. -Visual field in the right eye is within normal limits. Mean deviation is -0.37 dB. Reliability is good. -Visual field in the left eye is within normal limits. Mean deviation is -0.65 dB. Reliability is good. Thank you very much to Dr. Farfan [...] as of this encounter Visit Diagnoses Diagnosis Frequent headaches- Primary Ophthalmic migraine Other forms of migraine, without mention of intractable migraine without mention of status migrainosus Migraine without status migrainosus, not intractable, unspecified migraine type documented in this encounter Additional Health Concerns Assessment Noted Time PHQ-9 Depression Total Score: 0 10/07/20 19 10:06 AM POLISHER BALANCE SCREWHEAD documented as of this encounter Care Teams Press Feeder Broomcorn Relationship Specialty Start Date End Date Delonte Marin MD [address] [facility] [address] [place] [address] PCP - General Podiatry 10/6/15 documented as of this encounter
--- OUTSIDE RECORDS SUMMARY | 2024-11-30 10:16 | XMS_ITS | Encounter Summary ---
Author Organization [employer] Address [address] [place] [address] Care Team Providers Care Tearoom Hostess Name Role Phone Delonte Marin MD Primary Care Provider +1- [phone] Reason for Visit * Reason Comments Pain back, neck, & spine pain. Encounter Details Date Type Department Care Team (Late st Contact Info) Description 04/18/2021 4:00 PM CDT Office Visit [address] [place] [address] Delonte Marin MD [address] [place] [address] [address] [place] [address] Acute viral syndrome (Primary Dx); Myalgia; Headache due to viral infection; Strain of neck muscle, initial encounter; Other migraine without status migrainosus, not intractable Social History [...] Sign Reading Time Taken Comments Blood Pressure 110/86 04/18/2021 4:07 PM CDT Pulse 120 04/18/2021 4:07 PM CDT Temperature 36.8 ??C (98.2 ??F) 04/18/2021 4:07 PM CD T Respiratory Rate - - Oxygen Saturation 97% 04/18/2021 4:07 PM CDT Inhaled Oxygen Concentration - - Weight 75.8 kg (167 lb 3.2 oz) 04/18/2021 4:07 P M CDT Height - - Body Mass Index 26.99 11/16/2020 11:46 AM RECOIL SPRING WINDER documented in this encounter Progress Notes * Delonte Marin MD - 04/18/2021 4:00 PM CDT [address] [facility] [address] Dept: [phone] Dept Loc: [phone] Loc Date: 04/18/2021 Name: Michelle Gomez : 1985 PCP: Delonte Marin MD Subjective: Patient ID: Michelle Gomez is a 35 y.o. female. CC: Michelle Gomez is a 35 y.o. patient is seen today for Chief Complaint Patient presents with ??? Pain back, neck, & spine pain. NOTE: Abbreviations, medical idioms and medical terminology [...] face masks as recommended by the CDC, [facility], and [place] COVID-19 Guidelines. HPI Neck Pain. I had some neck pain and stiffness over the weekend. It is gone right now. I ad a headache on Saturday. I then woke up on Saturday 2 AM with a mild fever (99.7) and a migraine and a poundingheadache. I took an Imitrex but it did not work. I took IBU and it helped. I woke up Saturday night with a headache too. I restarted my [place] last Saturday through after not doing it for several weeks. I do push myself hard. She is seen for neck pain. The neck pain began Saturday 2 AM two days ago and it is not getting worse. The pain is located in the posterior neck and it does not radiate. The pain is moderate, and aching. Associated symptoms include stiffness. She has tried heat, ice, ROM, exercise, and OTC acetaminophen without relief. She denies trauma. She denies bone pain, chest pain, chills, fever, joint locking, joint swelling, muscle weakness, numbness, paresthesia, rash, and tremor. Spine pain. I also have some mid back and low back spine pain. Sitting here it does not hurt but if I walk and try to run the pain increases. Patient's medications, allergies, past medical, surgical, social [...] amnesia No anxiety. . Objective: Blood pressure 110/86, pulse 120, temperature 36.8 ??C (98.2 ??F), weight 75.8 kg (167 lb 3.2 oz), SpO2 97 %., BMI Body mass index is 26.99 kg/m??. Physical Exam Constitutional: Oriented to person, place, and time. Well-developed. Well- nourished. . . . Head: Normocephalic and atraumatic. . . . Eyes:. . . . ENT:. . . . Neck: Supple. Normal range of motion. No point tenderness. No crepitus . Mild pain with looking up . Pulmonary/Chest: Normal effort. No respiratory distress. Normal breath sounds. No wheezing. . . . Cardiovascular: Normal rate. Regular rhythm. Normal heart sounds. No murmur. . . . Abdominal: Soft. Normal bowel sounds. No guarding. No rebound. No mass. . . . Musculoskeletal: Normal range of motion. Normal strength. Normal gait. Mild isaac spinal tenderness . GenitoUrinary: No bladder tenderness. No distention. [...] (AVAGE) 0.1 % cream, 0 ??? [DISCONTINUED] escitalopram (LEXAPRO) 10 MG tablet, 0 Assessment/Plan: Problem List Items Addressed This Visit Acute viral syndrome - Primary Cervical strain Headache due to viral infection Migraines Myalgia BMI: Body mass index is 26.99 kg/m??. Wt Readings from Last 3 Encounters: 04/18/21 75.8 kg (167 lb 3.2 oz) 01/12/21 76.5 kg (168 lb 9.6 oz) 11/16/20 71.7 kg (158 lb) ASSESSMENT & PLAN: 1. Acute viral syndrome STATUS: Apperars viral inflammation RECOMMENDATIONS: Rest. FOLLOW UP: Telephone us or return to office if worse. MEDICATION: Continue IBU or Tylenol. ORDERS: 2. Myalgia STATUS: New. RECOMMENDATIONS: Do daily stretches and exercises. Do RICE (rest, ice, heat, ROM and exercises). FOLLOW UP: Follow up prn. Telephone us or return to office if worse. MEDICATION: Continue IBU or Tylenol. ORDERS: 3. Headache due to viral infection STATUS: New headache. RECOMMENDATIONS: Rest. Increase fluids. Take all medications as directed. FOLLOW UP: Telephone us or return to office if worse or does not resolve. MEDICATION: Continue IBU or Tylenol. ORDERS: 4. Strain of neck muscle, initial encounter STATUS: Appears muscle spasms. RECOMMENDATIONS: Try RICE (rest, ice, heat, ROM and exercises). FOLLOW UP: Follow up as needed. Telephone us or return to office if worse. MEDICATION: Continue IBU or Tylenol. ORDERS: 5. Other migraine without status migrainosus, not intractable Her illness appears to have triggered her migraines. Take meds as needed. Questions have been answered. Patient verbalizes understanding and agreement with the plan. Education has been provided. ORDERS:No orders of the defined types were placed in this encounter. TESTS: No visits with results within 8 Day(s) from this visit. Latest known visit with results is: Hospital Outpatient Visit on 01/12/2021 Component Date [...] Next Visit: Follow up in about 1 week (around 04/25/2021), or if symptoms worsen or fail to improve. Encounter of: 04/18/2021 Signed: Delonte Marin MD 04/18/2021 6:26 PM documented in this encounter Plan of Treatment Not on file documented as of this encounter Goals Goal Patient Goal Type Associated Problems Recent Progress Patient-Stated? Author Blood Pressure < 140/90 Blood Pressure 118/82(2024 10:05 AM RECOIL SPRING WINDER) No Delonte Marin MD Use sunscreen daily Lifestyle No Divya Cr RN Frequent Skin Checks Lifestyle No Divya Cr, RN documented as of this encounter Visit Diagnoses Diagnosis Acute viral syndrome- Primary Myalgia Mylagia and myositis, unspecified Headache due to viral infection Strain of neck muscle, initial encounter Other migraine without status migrainosus, not intractable documented in this encounter Additional Health Concerns Assessment Noted Time PHQ-9 Depression Total Score: 0 10/07/20 19 10:06 AM RECOIL SPRING WINDER documented as of this encounter Care Teams Tearoom Hostess Relationship Specialty Start Date End Date Delonte Marin MD [address] [facility] [address] [place] [address] PCP - General Podiatry 08/23/15 documented as of this encounter
--- OUTSIDE RECORDS SUMMARY | 2024-11-30 10:16 | XMS_ITS | Encounter Summary ---
Author Organization [facility] Address [address] [place] [address] Care Team Providers Care Passport Application Examiner Name Role Phone Delonte Marin MD Primary Care Provider +1- [phone] Encounter Details Date Type Department Care Team ([facility] st Contact Info) Description 04/25/2021 Orders Only [facility] Dermatology [address] [place] [address] Sailaja Bianchi LPN [address] [place] [address] Flat wart Social History Tobacco [...] < 140/90 Blood Pressure 118/82(2024 10:05 AM ASSET AVAILABILITY LEADER) No Delonte Marin MD Use sunscreen daily Lifestyle No Divya Cr, RN Frequent Skin Checks Lifestyle No Divya Cr, RN documented as of this encounter Visit Diagnoses Diagnosis Flat wart Other specified viral warts documented in this encounter Additional Health Concerns Assessment Noted Time PHQ-9 Depression Total Score: 0 10/07/20 10:06 AM ASSET AVAILABILITY LEADER documented as of this encounter Care Teams Passport Application Examiner Relationship Specialty [place] [address] [place] [address] [address] [place] [address] PCP - General Podiatry 08/23/15 documented as of this encounter
--- OUTSIDE RECORDS SUMMARY | 2024-11-30 10:16 | XMS_ITS | Encounter Summary ---
Author Organization [employer] [facility] Address [address] [place] [address] Care Team Providers Care Health Benefits Specialist Name Role Phone Delonte Marin MD Primary Care Provider +1- [phone] Encounter Details Date Type Department Care Team (Latest Contact Info) Description 07/29/2020 Travel Social History Tobacco Use Types Packs/Day [...] have Coronavirus / COVID-19? No / Unsure 07/29/2020 9:02 AM CDT documented as of this encounter [...] Depression Total Score: 0 10/07/20 10:06 AM SLOTTER OPERATOR HELPER documented as of this encounter Care Teams Health Benefits Specialist Relationship Specialty Start Date End Date Delonte Marin MD [address] [facility] [address] [place] [address] PCP - General Podiatry 08/23/15 documented as of this encounter
--- OUTSIDE RECORDS SUMMARY | 2024-11-30 10:16 | XMS_ITS | Encounter Summary ---
Author Organization [employer] Address [address] [place] [address] Care Team Providers Care Safety Spec Name Role Phone Delonte Marin MD Primary Care Provider +1- [phone] Encounter Details Date Type Department Care Team ([facility] st Contact Info) Description 05/09/2021 Orders Only [facility] Dermatology [address] [place] [address] Sailaja Bianchi LPN [address] [place] [address] Flat wart Social History Tobacco [...] < 140/90 Blood Pressure 118/82(2024 10:05 AM ED TRANSPORTER) No Delonte Marin MD Use sunscreen daily Lifestyle No Divya Cr, RN Frequent Skin Checks Lifestyle No Divya Cr, RN documented as of this encounter Visit Diagnoses Diagnosis Flat wart Other specified viral warts documented in this encounter Additional Health Concerns Assessment Noted Time PHQ-9 Depression Total Score: 0 10/07/20 10:06 AM ED TRANSPORTER documented as of this encounter Care Teams Safety Spec Relationship Specialty [place] [address] [place] [address] 20[address] [place] [address] PCP - General Podiatry 08/23/15 documented as of this encounter
--- OUTSIDE RECORDS SUMMARY | 2024-11-30 10:16 | XMS_ITS | Encounter Summary ---
Author Organization [employer] Address [address] [place] [address] Care Team Providers Care Commissioner Of Internal Revenue Name Role Phone Delonte Marin MD Primary Care Provider +1- [phone] Encounter Details Date Type Department Care Team (Latest Contact Info) Description 11/16/2020 11:40 AM STUDENT MINISTRIES DIRECTOR - 11/16/2020 11:59 PM STUDENT MINISTRIES DIRECTOR Hospital Encounter [facility] [address] [place] [id number] Suspected 2019 novel coronavirus infection Discharge Disposition: Home - Discharge to Home [...] this encounter Medications at Time of Discharge azithromycin (ZITHROMAX) 250 MG tablet Take 2 tabs day 1, 1 tab days 2-5 6 tablet 11/16/2020 1 labetalol (NORMODYNE) 100 MG tablet Take 100 mg by mouth daily. 09/23/2020 1 magnesium 200 MG TABS tablet Take 1 (one) tablet by mouth daily. 4 nortriptyline (PAMELOR) 10 MG capsuleIndication s:Chronic migraine without aura without status migrainosus, not intractable Take 3 capsules by mouth nightly. 270 capsule 09/21/2020 1 SUMAtriptan succinate (IMITREX) 100 MG tablet Take 1 tablet by mouth as needed for Migraine. MAX 2 per day. 9 tablet 11/09/2020 1 documented as of this encounter Plan of Treatment Not on file documented as of this encounter Goals Goal Patient Goal Type Associated Problems Recent Progress Patient-Stated? Author Use sunscreen daily Lifestyle No Divya Cr RN Frequent Skin Checks Lifestyle No Divya Cr RN documented as of this encounter Procedures Procedure Name Priority Date/Time Associated Diagnosis Comments CORONAVIRUS SARS-COV-2 MOLECULAR Routine 11/16/2020 11:40 AM STUDENT MINISTRIES DIRECTOR Suspected 2019 novel coronavirus infection documented in this encounter Results * CoronaVirus SARS CoV-2 PCR (11/16/2020 11:40 AM STUDENT MINISTRIES DIRECTOR) SARS-CoV-2 PCR NOT DETECTED NDET 11/17/2020 6:53 AM [facility] Comment: ---- A Not Detected result indicates that SARS-CoV-2 RNA is not present in the patient's specimen. This result may be influenced by the stage of the viral infection and the quality of the specimen collected for testing. Test results should be correlated in the clinical context of each patient. This assay utilizes the Hot[employer] SystemsPath COVID-19 Combo Kit with RNA isolation performed on the SnappyTV Purification System and RT PCR performed on the [employer] 12SmartExposee Flex Real time PCR system. ?? TESTING PERFORMED AT [facility], [facility] [place] [id number] The test was developed and its performance characteristics determined by [facility]. It has not been cleared or approved by the FDA. Such approval is not required for clinical implementation and the test results have been shown to be clinically useful. This laboratory is CAP accredited and CLIA certified to perform high complexity testing. Performed at [address] [address], ([phone], unless otherwise noted. FIRST TEST UNKNOWN 11/16/2020 1:26 PM [facility] EMPLOYED IN HEALTHCARE NO 11/16/2020 1:26 PM [facility] SYMPTOMATIC DEFINED BY CDC YES 11/16/2020 1:26 PM [facility] DATE OF SYMPTOM ONSET 2020111511/16/2020 1:26 PM [facility] HOSPITALIZED NO 11/16/2020 1:26 PM [facility] ICU NO 11/16/2020 1:26 PM [facility] RESIDENT IN CONGREGATE SETTING NO 11/16/2020 1:26 PM [facility] NOT 11/16/2020 1:26 PM [facility] Blood specimen (specimen) NASOPHARYNGEAL SWAB / Unknown 11/16/2020 11:40 AM STUDENT MINISTRIES DIRECTOR 11/16/2020 1:39 PM STUDENT MINISTRIES DIRECTOR us Adelita Martinez APN MICROBIOLOGY - GENERAL OR DERABLES Final Result [facility] [address] [place], [place] [phone] [facility] [address] [place] [address] [facility] [address] [place] [address] documented in this encounter Visit Diagnoses Diagnosis Suspected 2019 novel coronavirus infection documented in this encounter Additional Health Concerns Assessment Noted Time PHQ-9 Depression Total Score: 0 10/07/20 19 10:06 AM STUDENT MINISTRIES DIRECTOR documented as of this encounter Care Teams Commissioner Of Internal Revenue Relationship Specialty Start Date End Date Delonte Marin MD [address] [facility] [address] [place] [address] PCP - General Podiatry 08/23/15 documented as of this encounter
--- OUTSIDE RECORDS SUMMARY | 2024-11-30 10:16 | XMS_ITS | Encounter Summary ---
Author Organization [employer] Address [address] [place] [address] Care Team Providers Care Finance Administrator Name Role Phone Delonte Marin MD Primary Care Provider +1- [phone] Reason for Visit * Reason Comments Follow-up Encounter Details Date Type Department Care Team ([facility] st Contact Info) Description 04/07/2021 9:45 AM CDT Office Visit [facility] Dermatology [address] [place] [address] Juany Hurst MD [address] [place] [phone] Flat wart (Primary Dx); Viral warts, unspecified type; Callus Social History Tobacco Use Types Packs/Day Years [...] Progress Notes * Juany Hurst MD - 04/07/2021 9:45 AM CDT CHIEF COMPLAINT: Follow-up HISTORY OF PRESENT ILLNESS: Michelle Gomez is a very pleasant 35 y.o. female presenting to clinic for follow up of warts. The patient was last seen in Dermatology 07/29/2020. Michelle returns to the office today to discuss treatment of warts to the bilateral hands. She wonders about roughness to the bottom of her feet that doesn't seem to heal with OTC preparations. REVIEW OF SYSTEMS: Negative except as noted in HPI. PROBLEM LIST: Patient Active Problem List Diagnosis ??? Migraines ??? Panic attack ??? Seborrheic keratoses ??? Neck pain ??? Pre-conception counseling ??? Cervicocranial syndrome of cervical region ??? Cervical spondylosis ??? Influenza A ??? Visual changes ??? Ophthalmic migraine ??? Chronic fatigue ??? 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 MEDICATIONS: ??? escitalopram (LEXAPRO) 10 MG tablet, 0 ??? labetalol (NORMODYNE) 100 MG tablet, 0 [...] following: Right upper extremity Left upper extremity Right lower extremity Left lower extremity Digits, fingernails and toenails Pertinent findings include: Multiple verrucous papules to the hands. Calluses to the bilateral heels. RESULTS REVIEW: N/A IMPRESSION & PLAN: 1. Warts, painful. Treatment options were reviewed with the patient including observation, home therapy with OTC salicylic acid, treatment with rx compounded WartPeel, treatment with prescription retinoid, or in-officeprocedures such as destruction with cryotherapy/cantharone or immunotherapy with [place] Bri. Patient elected to proceed with Tazorac 0.1% cream nightly . 2. Calluses. Start Urea 40% cream to the heels at bedtime. DISPOSITION: Follow up as needed. Juany Hurst MD Department of Dermatology [facility] documented in this encounter Plan of Treatment Not on file documented as of this encounter Goals Goal Patient Goal Type Associated Problems Recent Progress Patient-Stated? Author Blood Pressure < 140/90 Blood Pressure 118/82(2024 10:05 AM OXIDIZED FINISH PLATER) No Delonte Marin MD Use sunscreen daily Lifestyle No Divya Cr RN Frequent Skin Checks Lifestyle No Divya Cr, RN documented as of this encounter Visit Diagnoses Diagnosis Flat wart- Primary Other specified viral warts Viral warts, unspecified type Callus Corns and callosities documented in this encounter Additional Health Concerns Assessment Noted Time PHQ-9 Depression Total Score: 0 10/07/20 19 10:06 AM OXIDIZED FINISH PLATER documented as of this encounter Care Teams Finance Administrator Relationship Specialty Start Date End Date Delonte Marin MD 14[address] [facility] [address] [place] [address] PCP - General Podiatry 08/23/15 documented as of this encounter
--- OUTSIDE RECORDS SUMMARY | 2024-11-30 10:16 | XMS_ITS | Encounter Summary ---
Author Organization [facility] Address [address] [place] [address] Care Team Providers Care Filler Wiper Name Role Phone Delonte Marin MD Primary Care Provider +1- [phone] Encounter Details Date Type Department Care Team (Latest Contact Info) Description 03/04/2020 Travel Social History Tobacco Use Types Packs/Day [...] PM CDT documented as of this encounter Plan [...] Total Score: 0 10/07/20 19 10:06 AM DISTANCE LEARNING COORDINATOR documented as of this encounter Care Teams Filler Wiper Relationship Specialty Start Date End Date Delonte Marin MD 14[address] [facility] [address] [place] [address] PCP - General Podiatry 08/23/15 documented as of this encounter
--- OUTSIDE RECORDS SUMMARY | 2024-11-30 10:16 | XMS_ITS | Encounter Summary ---
Author Organization [employer] Address [address] [place] [address] Care Team Providers Care Information Systems Manager Name Role Phone Delonte Marin MD Primary Care Provider +1- [phone] Reason for Visit * Reason Comments Medication Refill Encounter Details Date Type Department Care Team (Late st Contact Info) Description 12/16/2020 Refill [facility] Neurology [address] [place] [address] Delonte Farfan MD [address] [place] [address] [address] [place] [address] Chronic migraine without aura without [...] Telephone Encounter - Martha Hill RN - 12/16/2020 12:05 PM BRAKE HOLDER PC from pt requesting refill, I made her aware that Dr. Farfan will need to see her for follow up at least once a year to continue to prescribed medication refills. Pt VPU but refused to make an appointment, she stated that is an unreasonable request. Dr. Farfan made aware, stated to prescribe a 90 day script with 1 refill. Patient will have to schedule an appointment for any further refills after that. Relayed this to the patient, she VPU. Maritza GRACIA E HOLDER documented in this encounter Plan of Treatment [...] Total Score: 0 10/07/20 19 10:06 AM BRAKE HOLDER documented as of this encounter Care Teams Information Systems Manager Relationship Specialty [place] [address] [place] [address] [address] [place] [address] PCP - General Podiatry 08/23/15 documented as of this encounter
--- OUTSIDE RECORDS SUMMARY | 2024-11-30 10:16 | XMS_ITS | Encounter Summary ---
Author Organization [employer] Address [address] [place] [address] Care Team Providers Care Gun Profiler Name Role Phone Delonte Marin MD Primary Care Provider +1- [phone] Reason for Visit * Reason Comments Skin Check Encounter Details Date Type Department Care Team (Late st Contact Info) Description 07/29/2020 9:15 AM CDT Office Visit [facility] Dermatology [address] [place] [address] Juany Hurst MD [address] [place] [address] Neoplasm of uncertain behavior of skin (Primary Dx); Viral warts, unspecified type; Disturbance of skin sensation; Tan angioma; Diffuse photodamage of skin; Nevus Social History Tobacco Use Types Packs/Day Years [...] Progress Notes * Juany Hurst MD - 07/29/2020 9:15 AM CDT CHIEF COMPLAINT: Full body skin exam due to lesions of concern and history of significant ultraviolet exposure. HISTORY OF PRESENT ILLNESS: Michelle Gomez is a very pleasant 34 y.o. female presenting to clinic for the [...] HISTORY: Past Medical History: Diagnosis Date ??? Acute sinusitis ??? Carpal tunnel syndrome Neck disc problems.Sees chiropractor and Celebrex ??? Cervical spondylosis 12/21/2019 ??? Gastroenteritis ??? Headache ??? Migraines Saw [facility]. Uses Imitrex and nortriptyline. Less migraines since Mirena out. ??? Panic attack PROBLEM LIST: Patient Active Problem List Diagnosis ??? Migraines ??? Panic attack ??? Seborrheic keratoses ??? Neck pain ??? Pre-conception counseling ??? Cervicocranial syndrome of cervical region ??? Cervical spondylosis ??? Influenza A ??? Visual changes ??? Ophthalmic migraine FAMILY HISTORY: Negative for malignant melanoma in family members. 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 magnesium 200 MG TABS tablet, 0 ??? nortriptyline (PAMELOR) 10 MG capsule, 0 ??? vitamin 28-0.8 MG TABS tablet, 0 ALLERGIES: Allergies Allergen Reactions ??? [...] examination included the following at patient request: Scalp Head Neck Chest Abdomen Buttocks Back Right upper extremity Left upper extremity Right lower extremity Left lower extremity Digits, fingernails and toenails Pertinent findings include: Sun damaged skin with signs of photoaging in a sun- exposed distribution. Bright tan red papules on the trunk and extremities.Small benign appearing nevi throughout. Dryskin on the lower legs. Multiple verrucous papules to the lower extremities. Inflamed red papule tothe left shoulder. RESULTS REVIEW: N/A IMPRESSION & PLAN: Tumor of skin, uncertain behavior. Site: left shoulder Differential diagnosis: irritated angioma After obtaining written informed consent for biopsy and photography, the area was photographed, prepped and draped in the usual fashion. Anesthesia was obtained with 1% lidocaine. The lesion was sampled via shave biopsy technique. Hemostasis obtained with pressure and aluminum chloride. Wound care discussed. Specimen sent for dermatopathology. Results anticipated within 15 business days. Warts, painful. Treatment options were reviewed with the patient including observation, home therapy with OTC salicylic acid, treatment with rx compounded WartPeel, or in- office procedures such as destruction with cryotherapy/cantharone or immunotherapy with [place] Bri. Patient elected to proceed with cryotherapy. Will defer treatment of the hands until . Sun damaged skin. Photoprotection was emphasized and [...] 1 year, or sooner should symptoms worsen. 15 minutes spent [id number] with the patient today, greater than half of which was in counseling and coordination of care. Juany Hurst MD Department of Dermatology [facility] documented in this encounter Plan of Treatment Not on file documented as of this encounter Goals Goal Patient Goal Type Associated Problems Recent Progress Patient-Stated? Author Use sunscreen daily Lifestyle No Divya Cr, RN Frequent Skin Checks Lifestyle No Divya Cr RN documented as of this encounter Procedures Procedure Name Priority Date/Time Associated Diagnosis Comments TISSUE EXAM Routine 07/29/2020 6:07 AM CDT Neoplasm of uncertain behavior of skin documented in this encounter Results * Tissue Exam (07/29/2020 6:07 AM CDT) Tissue specimen (specimen) Juany Hurst MD PATHOLOGY/CYTOLOGY ORDERABLES [facility] Result Performing Organization Address City/State/[facility] Co de Phone Number EXTERNAL NON [facility] - NO INTERFACE documented in this encounter Visit Diagnoses Diagnosis Neoplasm of uncertain behavior of skin- Primary Viral warts, unspecified type Disturbance of skin sensation Tan angioma Nevus, non-neoplastic Diffuse photodamage of skin Other chronic dermatitis due to solar radiation Nevus Benign neoplasm of skin, site unspecified documented in this encounter Additional Health Concerns Assessment Noted Time PHQ-9 Depression Total Score: 0 10/07/20 19 10:06 AM GROUND MIXER documented as of this encounter Care Teams Gun Profiler Relationship Specialty [place] [address] [place] [address] [address] [place] [address] PCP - General Podiatry 08/23/15 documented as of this encounter
--- OUTSIDE RECORDS SUMMARY | 2024-11-30 10:16 | XMS_ITS | Encounter Summary ---
Author Organization [employer] Address [address] [place] [address] Care Team Providers Care Tour Sales Representative Name Role Phone Delonte Marin MD Primary Care Provider +1- [phone] Reason for Referral * Referral (Routine) - Closed Specialty Diagnoses / Procedures Referred By Contac t Referred To Contact Ophthalmology Diagnoses Chronic migraine without aura without status migrainosus, not intractable Visual changes Delonte Farfan MD [address] [place] [address] Phone: tel: fax: [facility] [place] [address] [place] [address] Phone: tel: fax: Referral ID Status Reason Start Date Expiration Date V isits Requested Visits Authorized [id number] Closed Specialty Services Required 02/22/2020 02/21/2021 1 1 Encounter Details Date Type Department Care Team (Late st Contact Info) Description 02/22/2020 10:10 AM CDT Telemedicine [facility] Neurology [address] [place] [phone] Delonte Farfan MD [address] [place] [address] Chronic migraine without aura without status migrainosus, not intractable (Primary Dx); Migraine without status migrainosus, not intractable, unspecified migraine type; Neck pain; Visual changes; 11 weeks gestation of Social History Tobacco Use [...] Progress Notes * Delonte Farfan MD - 02/22/2020 10:10 AM CDT [facility] Department of Neurology Telehealth Visit [address] [place] [address] Encounter Date: 02/22/2020 Name: Michelle Gomez : 1985 PCP: Delonte Marin MD During this emergency period the patient has initiated this contact and has consented to a Telehealth visit with Delonte Farfan MD . Start Time:1042 Stop Time: *1058 (Patient) Originating Location: home (Provider) Distant Location: [facility] Subjective: Michelle Gomez is a 34 y.o. female Interval history: 11 weeks . Headaches and visual auras returned. Past 10 days Drinking some coffee. No weight gain. rheumalogy suggested opthalm appt -- has not done that yet. Neck stiffness Photo and phonophobia. Dr. Joseph her OB has indicated that continue on the nortriptyline at this point is fine. 30 mg she mattie. We reiterated the importance of regular exercise walking. Difficult for her to do a lot of aggressive exercise due to the tension in her neck is been a longstanding issue. Tapering caffeine reiterated. The visual changes and her raise some concern. Cannot do funduscopic exam today. Rheumatology had previously recommended ophthalmology appointment. She should follow through with that. Makesure no glaucoma. See if they see any evidence of papilledema. Low threshold for lumbar puncture. Low threshold for repeat MRI with MRA if necessary to exclude sagittal sinus issues thrombosis issuesetc. Does not appear based on acuity that that is a prominent likelihood at this juncture. She is had no substantial weight gain. She will keep us advised to progress. Question indication for treatment of pseudotumor in pregnancywith pharmacologic agents. Forward these notes to Dr. Benítez. Forward these notes to Delonte chapin. Michelle Gomez's problem list, medications, allergies, past [...] release Left 09/12/2015 Left hand carpal tunnel release./[facility] ??? Carpal tunnel release Right 10/24/2015 Right hand carpal tunnel release./[facility] ??? Foot surgery Left bunionectomy Family History [...] Outpatient Medications Medication Sig Dispense Refill ??? ELDERBERRY PO Take by mouth. ??? ibuprofen (ADVIL) 200 MG CAPS Take 400 mg by mouth every 8 (eight) hours as needed. ??? magnesium 200 MG TABS tablet Take 200 mg by mouth daily. ??? nortriptyline (PAMELOR) 10 MG capsule Take 6 capsules by mouth nightly. (Patient taking differently: Take 40 mg by mouth nightly. ) 180 capsule 5 ??? SUMAtriptan succinate (IMITREX) 100 MG tablet Take 1 tablet by mouth as needed for Migraine. MAX 2 per day. 9 tablet 3 No current facility-administered medications for this visit. Review of Systems: Review of Systems Objective: Physical Exam: General: No apparent distress Mental Status: Awake and alert. Normal speech Cranial Nerves: VII: No facial asymmetry Motor: Nothing new reported. Cannot do ophthalmologic exam given that today's exam is an visual obscurations E visit Abnormal movements: none Coordination: No discoordination noted in the upper extremities. Assessment & Plan: 1. Chronic migraine without aura without status migrainosus, not intractable 2. Migraine without status migrainosus, not intractable, unspecified migraine type 3. Neck pain 4. Chronic migraine 11 weeks . Headaches and visual auras returned. Past 10 days Drinking some coffee. No weight gain. rheumalogy suggested opthalm appt -- has not done that yet. Neck stiffness Photo and phonophobia. Dr. Joseph her OB has indicated that continue on the nortriptyline at this point is fine. 30 mg she mattie. We reiterated the importance of regular exercise walking. Difficult for her to do a lot of aggressive exercise due to the tension in her neck is been a longstanding issue. Tapering caffeine reiterated. The visual changes and her raise some concern. Cannot do funduscopic exam today. Rheumatology had previously recommended ophthalmology appointment. She should follow through with that. Makesure no glaucoma. See if they see any evidence of papilledema. Low threshold for lumbar puncture. Low threshold for repeat MRI with MRA if necessary to exclude sagittal sinus issues thrombosis issuesetc. Does not appear based on acuity that that is a prominent likelihood at this juncture. She is had no substantial weight gain. She will keep us advised to progress. Question indication for treatment of pseudotumor in pregnancywith pharmacologic agents. Forward these notes to Dr. Benítez. Forward these notes to Delonte chapin. Currently weight is 155pounds least a few weeks ago. And she was 160 last time we saw our. Consider botx ? Neck issues exacerbate her headaches. She seen Dr. Muhammad. He tried some metaxalone. She did not tolerate that well. Is been using some NSAIDs. Actually quite a bit. I worry about that. They are prone to rebound. Carry risks generally. Talked about renal failure GI issues hepatic issues etc. withthat agent. Try to taper. Discussed eating that. ? Discussed serotonergic on the findings of migraines. Stressed vigilance for vegetative signs of depression. No pain but is never satisfactorily addressed until treat underlying depression is present. ? Father is prone to migraines. He uses amitriptyline. She is on nortriptyline. There is probably room to titrate that. She is currently on only 40 mg. 30-70 mg generally efficacious. 2-3 weeks for any medication dose change to yield half its benefit. 6-8 weeks to kick in full. We are in winter months. ? She went off of Mirena wondering if it would help with her headaches. It seems to have exacerbated them. She may contemplate going back on it. Though things have improved a bit since initial cessation of that agent. ? TAPERING CAFFIENE documented in this encounter Plan of Treatment Scheduled Referrals Name Type Priority Associated Diagnoses Order Schedule Amb Ref to Ophthalmology Outpatient Referral Routine Chronic migraine without aura without status migrainosus, not intractable Visual changes Ordered: 02/22/2020 documented as of this encounter Goals Goal [...] disturbance 11 weeks gestation of state, incidental documented in this encounter Additional Health Concerns Assessment Noted Time PHQ-9 Depression Total Score: 0 10/07/20 19 10:06 AM LIP OF SHANK CUTTER documented as of this encounter Care Teams Tour Sales Representative Relationship Specialty Start Date End Date Delonte Marin MD [address] [facility] [address] [place] [address] PCP - General Podiatry 08/23/15 documented as of this encounter
--- OUTSIDE RECORDS SUMMARY | 2024-11-30 10:16 | XMS_ITS | Encounter Summary ---
Author Organization [employer] Address [address] [place] [address] Care Team Providers Care Catshovel Driver Name Role Phone Delonte Marin MD Primary Care Provider +1- [phone] Reason for Visit * Reason Onset Date Comments Telephone Call 02/18/2020 Encounter Details Date Type Department Care Team ([facility] st Contact Info) Description 02/18/2020 Telephone [facility] Neurology [address] [place] [phone] Martha Hill, RN [address] [place] [address] Telephone Call Social History Tobacco Use Types Packs/Day Years [...] Telephone Encounter - Martha Hill RN - 02/18/2020 1:06 PM CDT Discussed with Dr. Farfan, requests that the patient be scheduled for telehealth visit on to further discuss concerns. PC returned to patient, relayed recommendations and she VPU and agrees to plan. Patient stated she is almost 11 weeks . She is currently taking nortriptyline 30mg at night, Dr. Sears her OBGYN is aware of this and has given her the okay to keep taking while . Maritza RN * Telephone Encounter - Martha Hill RN - 02/18/2020 1:06 PM CDT ----- Message from Lindsey Gutierrez sent at 02/18/2020 10:05 AM CDT ----- Regarding: Problem Provider: REESE Farfan: Migraine/Aura Is the patient active on MyChart: No Phone: Mobile (mobile) Has the patient called or been called about this issue: This is a first call for this issue. Patient left message at 9:31a stating she has had 3 auras this week, a migraine that will not go away, and she is currently . She would like a call back to advise what she should do. Thank you! documented in this encounter Plan of Treatment [...] Total Score: 0 10/07/20 19 10:06 AM ASSISTANT EDITOR documented as of this encounter Care Teams Catshovel Driver Relationship Specialty Start Date End Date Delonte Marin MD [address] [facility] [address] [place] [address] PCP - General Podiatry 08/23/15 documented as of this encounter
--- OUTSIDE RECORDS SUMMARY | 2024-11-30 10:16 | XMS_ITS | Encounter Summary ---
Author Organization [employer] Address [address] [place] [address] Care Team Providers Care Element Setter Name Role Phone Delonte Marin MD Primary Care Provider +1- [phone] Reason for Visit * Reason Onset Date Comments authorization 03/21/2020 Encounter Details Date Type Department Care Team (Late st Contact Info) Description 03/21/2020 Telephone [facility] Neurology [address] [place] [phone] [place] [address] [place] [address] authorization Social History Tobacco Use Types Packs/Day Years [...] PM CDT documented as of this encounter Miscellaneous Notes * Telephone Encounter - Martha Hill RN - 03/21/2020 10:53 AM CDT PC to patient with information regarding authorization for Botox. She declined to schedule an appointment for injections at this time. She wishes to discuss her neckpain with Dr. Farfan first, I transferred her to [facility] to schedule a telehealth follow up with Dr. Farfan. Maritza GRACIA * Telephone Encounter - Martha Hill RN - 03/21/2020 10:53 AM CDT ----- Message from Reinaldo Richard sent at 03/21/2020 10:31 AM CDT ----- Regarding: Botox [place] Auth# [id number] 6 visits Valid 03/18/20-09/18/21 documented in this encounter Plan of Treatment [...] Total Score: 0 10/07/20 19 10:06 AM ONLINE RETAILER documented as of this encounter Care Teams Element Setter Relationship Specialty Start Date End Date Delonte Marin MD [address] [facility] [address] [place] [address] PCP - General Podiatry 08/23/15 documented as of this encounter
--- OUTSIDE RECORDS SUMMARY | 2024-11-30 10:16 | XMS_ITS | Encounter Summary ---
Author Organization [employer] Address [address] [place] [address] Care Team Providers Care Food Analyst Name Role Phone Delonte Marin MD Primary Care Provider +1- [phone] Reason for Visit * Reason Onset Date Comments Triage call 11/16/2020 Encounter Details Date Type Department Care Team (Late st Contact Info) Description 11/16/2020 Telephone [facility] [address] [place] [address] Linda Ruth, Hunter [address] [place] [address] Triage call Social History Tobacco Use Types [...] encounter Miscellaneous Notes * Telephone Encounter - Linda Ruth RMA - 11/16/2020 10:16 AM MANAGER CLINICAL INFORMATICS [facility] Nurse Triage for All Respiratory/Flu Like [...] No DIARRHEA? No RASH? No Additional symptoms: Please describe length of onset of symptoms: When did your symptoms begin? 11/15/2020 Are they improving, unchanged or getting worse? worsening Do you have an outstanding COVID-19 Test No Please describe any significant co morbidities: htn COPD, HEART DISEASE, HIGH BLOOD PRESSURE, ASTHMA, IMMUNOCOMPROMISED, DIABETES, CHRONIC KIDNEY DISEASE OTHER CHRONIC LUNG DISEASE Have you traveled within the [place] in the last 30 days? no If yes: Where and When Have you had close contact with (close contact means within 6 feet of exposure to) someone who has a laboratory confirmed test of COVID-19? no Are you a healthcare worker, work in a conjugate setting (with many people living together, ie [place] [facility] care, nursing home, etc.) or an essential worker (police, 1st responder, prepared foods team leader, truck mechanic,etc.) No Describe: GER CLINICAL INFORMATICS GER CLINICAL INFORMATICS documented in this encounter Plan of Treatment [...] Score: 0 10/07/20 19 10:06 AM MANAGER CLINICAL INFORMATICS documented as of this encounter Care Teams Food Analyst Relationship Specialty Start Date End Date Delonte Marin MD [address] [facility] [address] [place] [address] PCP - General Podiatry 08/23/15 documented as of this encounter
--- OUTSIDE RECORDS SUMMARY | 2024-11-30 10:16 | XMS_ITS | Encounter Summary ---
Author Organization [employer] Address [address] [place] [address] Care Team Providers Care Feed Mixer Helper Name Role Phone Delonte Marin MD Primary Care Provider +1- [phone] Reason for Visit * Reason Onset Date Comments Medication Refill 09/21/2020 Encounter Details Date Type Department Care Team (Late st Contact Info) Description 09/21/2020 Refill [facility] Neurology [address] [place] [phone] Martha Hill RN [address] [place] [address] Chronic migraine without aura without status [...] Total Score: 0 10/07/20 19 10:06 AM COMMUNITY LEADER documented as of this encounter Care Teams Feed Mixer Helper Relationship Specialty Start Date End Date Delonte Marin MD [address] [facility] [address] [place] [address] PCP - General Podiatry 08/23/15 documented as of this encounter
--- OUTSIDE RECORDS SUMMARY | 2024-11-30 10:16 | XMS_ITS | Encounter Summary ---
Author Organization [employer] Address [address] [place] [address] Care Team Providers Care Cheese Cooker Name Role Phone Kathy Marin MD Primary Care Provider +1- [phone] Reason for Visit * Reason Comments Migraine * MRI/CAT Scan (Routine) - Closed Specialty Diagnoses / Procedures Referred By Contac t Referred To Contact Radiology Diagnoses Chronic migraine without aura without status migrainosus, not intractable Neck pain 25 weeks gestation of Procedures MR Angiography Head wo Contrast Kathy Adkins MD [address] [place] [address] Phone: tel: fax: Referral ID Status Reason Start Date Expiration Date Visits Re quested Visits Authorized [id number] Closed 06/01/2020 11/28/2020 1 1 Encounter Details Date Type Department Care Team ([facility] st Contact Info) Description 06/02/2020 2:00 PM CDT Clinical Support [facility] [address] [place] [phone] Kathy Adkins MD [address] [place] [address] Amanda Foster, RTR [address] [place] [address] Chronic migraine without aura without [...] Procedure Name Priority Date/Time Associated Diagnosis Comments MR ANGIOGRAPHY HEAD WO CONTRAST Routine 06/02/2020 2:17 PM CDT Chronic migraine without aura without status migrainosus, not intractable Neck pain 25 weeks gestation of documented in this encounter Results * MR Angiography Head wo Contrast (06/02/2020 2:17 PM CDT) Anatomical Region Laterality Modality Head, Vascular Magnetic Resonan ce 06/02/2020 2:17 PM CDT Narrative 06/03/2020 10:08 [place] [address] DIAGNOSTIC IMAGING Name: GOMEZMICHELLE Fabi ? Ordering Phys: KATHY ADKINS Age: 34 ?Date of : 1985 ? Accession Number: [id number] Date of Service:06/02/2020 ?? Gender: F EXAM [...] AM T: ??06/03/2020 10:05 AM Report ID: [id number] Reading Location: ??[id number] Procedure Note Josh Gómez MD - 06/03/2020 [place] [address] DIAGNOSTIC IMAGING Name: MICHELLE GOMEZ Ordering Phys: KATHY ADKINS Age: 34 Date of : 1985 Accession Number: [id number] Date of Service:06/02/2020 Gender: F EXAM DESCRIPTION: [...] Josh Gómez M.D. JESSICA: JESSICA Report ID: [id number] Reading Location: [id number] us Kathy Adkins MD IMG CV MRI ORDERABLES Fin al Result documented in this encounter Visit Diagnoses Diagnosis Chronic migraine without aura without status migrainosus, not intractable Chronic migraine without aura, without mention of intractable migraine without mention of status migrainosus Neck pain Cervicalgia 25 weeks gestation of state, incidental documented in this encounter Additional Health Concerns Assessment Noted Time PHQ-9 Depression Total Score: 0 10/07/20 19 10:06 AM PLANISHING HAMMER OPERATOR documented as of this encounter Care Teams Cheese Cooker Relationship Specialty Start Date End Date Kathy Marin MD [address] [facility] [address] [place] [address] PCP - General Podiatry 08/23/15 documented as of this encounter
--- OUTSIDE RECORDS SUMMARY | 2024-11-30 10:16 | XMS_ITS | Encounter Summary ---
Author Organization [employer] Address [address] [place] [address] Care Team Providers Care Black Pickler Name Role Phone Delonte Mrain MD Primary Care Provider +1- [phone] Reason for Visit * Reason Onset Date Comments Telephone Call 03/29/2020 Encounter Details Date Type Department Care Team ([facility] st Contact Info) Description 03/29/2020 Telephone [facility] Neurology [address] [place] [phone] Martha Hill RN [address] [place] [address] Telephone Call Social History Tobacco [...] Telephone Encounter - Martha Hill RN - 03/30/2020 4:[address] Farfan reviewed, he wanted the following relayed to the patient. In his neurological opinionthat Botox is one of the safest forms of treatment for chronic migraine in women that are ,also her SOLAR ENERGY CONSULTANT AND DESIGNER has no concerns or issues with the patient receiving Botox injections during her . Dr. Farfan stated that he is unsure if there are any other injections that would be appropriate to treat her medical issues. And if there are, he is unsure if they would even be safe to be given during . If the patient is interested in pursuing this further, he recommended discussing with her SOLAR ENERGY CONSULTANT AND DESIGNER and getting her opinion and that he could order a referral to [facility] for further eval and treatment. I discussed Dr. Farfan's recommendations with the patient, she VPU. She asked to cancel her Botox appointment at this time. She will be talking with her SOLAR ENERGY CONSULTANT AND DESIGNER and she will call our office if she decides to proceed with the referral to pain management. Maritza GRACIA * Telephone Encounter - Martha Hill RN - 03/29/2020 3:51 PM CDT PC from patient, she is asking if there are any other alternatives (oral medications or injections)to treat her migraines, neck pain, and pain at the base of the head. Pt stated she has heard of other types of injections (other than botox) for these problems...for example trigger point injection or nerve block injection. I relayed to the patient that I am unsure if these injections are appropriate for her medical issues and if they are safe to be given during . Patient stated that she is hesitant about getting the Botox injections because there is not a lot of studies and research proving it to be safely given during . I asked the patient if she had discussed getting the Botox injections for Migraines done with her SOLAR ENERGY CONSULTANT AND DESIGNER, Dr. Rahcelle Sears at [facility].Patient reported yes she has, Dr. Sears has no objections or concerns with Botox inj for migraines during . I relayed to the patient the I will discuss this with Dr. Farfan tomorrow and call patient back with his recommendations.Maritza GRACIA * Telephone Encounter - Martha Hill RN - 03/29/2020 3:48 PM CDT ----- Message from YENI Crowley sent at 03/29/2020 12:05 PM CDT ----- Pt has botox scheduled for Saturday but is having second thoughts since she is and wants to know if there is another alternative until after her Thanks! documented in this encounter Plan of Treatment [...] Total Score: 0 10/07/20 19 10:06 AM SCIENTIFIC GLASS BLOWER documented as of this encounter Care Teams Black Pickler Relationship Specialty Start Date End Date Delonte Marin MD [address] [facility] [address] [place] [address] PCP - General Podiatry 08/23/15 documented as of this encounter
--- OUTSIDE RECORDS SUMMARY | 2024-11-30 10:16 | XMS_ITS | Encounter Summary ---
Author Organization [employer] Address [address] [place] [address] Care Team Providers Care Miniature Model Maker Name Role Phone Delonte Marin MD Primary Care Provider +1- [phone] Reason for Visit * Reason Onset Date Comments Medication Refill 11/09/2020 Encounter Details Date Type Department Care Team (Late st Contact Info) Description 11/09/[address] [place] [address] Wendi Prince, [facility] [address] [address] [facility] [facility] [address] [place] [address] Medication Refill Social History Tobacco Use Types [...] Miscellaneous Notes * Telephone Encounter - Wendi Brandt [facility] [address] [address] [address] - 11/09/2020 4:45 PM CST Images from the original note were not included. [facility] Caller: Unspecified (Today, ??4:36 PM) ?? Provider: Tomas Martinez called in this afternoon to check on the status of her refill. ??I told her that per Dr. Marin he went ahead and sent in 9 tablets of her Imitrex however to get any refills she needed to comein and be seen for an office visit. ??She stated he is really going to make me come in for that and I stated yes asked her if she wanted to go ahead and schedule an appointment with me while she was on the phone and she stated no she did not and hung up the phone. ?? LLECTUAL PROPERTY MANAGER * Telephone Encounter - Wendi Brandt CMA - 11/09/2020 10:07 AM INTELLECTUAL PROPERTY MANAGER Per Dr Marin, ok for Imitrex #9 with no refills. Patient will need to be seen for any other refills. LLECTUAL PROPERTY MANAGER * Telephone Encounter - Wendi Brandt CMA - 11/09/2020 9:28 AM CST ----- Message from Kathleen Valdez sent at 11/09/2020 9:21 AM INTELLECTUAL PROPERTY MANAGER ----- Regarding: Patient Call Provider: Tomas RE: Med Refill Who Called? Patient Is the patient active on MyChart?: No Patient call back number: Preferred Patient called today stating she would like to have her Imitrex refilled to [facility] in [place]. Patient stated if you have any questions she can be reached at [phone]. LLECTUAL PROPERTY MANAGER documented in this encounter Plan of [...] Total Score: 0 10/07/20 19 10:06 AM INTELLECTUAL PROPERTY MANAGER documented as of this encounter Care Teams Miniature Model Maker Relationship Specialty Start Date End Date Delonte Marin MD [address] [facility] [address] [place] [address] PCP - General Podiatry 08/23/15 documented as of this encounter
--- OUTSIDE RECORDS SUMMARY | 2024-11-30 10:16 | XMS_ITS | Encounter Summary ---
Author Organization [employer] Address [address] [place] [address] Care Team Providers Care Printing Sales Representative Name Role Phone Delonte Marin MD Primary Care Provider +1- [phone] Reason for Referral * MRI/CAT Scan (Routine) - Closed Specialty Diagnoses / Procedures Referred By Candaceac t Referred To Contact Radiology Diagnoses Chronic migraine without aura without status migrainosus, not intractable Neck pain 25 weeks gestation of Procedures MR Angiography Head wo Contrast Delonte Adkins MD [address] [place] [address] Phone: tel: fax: Referral ID Status Reason Start Date Expiration Date Visits Re quested Visits Authorized [id number] Closed 06/01/2020 11/28/2020 1 1 * MRI/CAT Scan (Routine) - Closed Specialty Diagnoses / Procedures Referred By Contac t Referred To Contact Radiology Diagnoses Chronic migraine without aura without status migrainosus, not intractable Neck pain 25 weeks gestation of Procedures MRI Brain wo Contrast Delonte Adkins MD [address] [place] [address] Phone: tel: fax: Referral ID Status Reason Start Date Expiration Date Visits Re quested Visits Authorized [id number] Closed 06/01/2020 11/28/2020 1 1 Reason for Visit * Reason Comments Follow-up Encounter Details Date Type Department Care Team ([facility] st Contact Info) Description 05/27/2020 10:00 AM CDT Office Visit [facility] Neurology [address] [place] [id number] Delonte Adkins MD [address] [place] [address] [address] [place] [address] Chronic migraine without aura without status migrainosus, not intractable (Primary Dx); Neck pain; 25 weeks gestation of Social [...] Reading Time Taken Comments Blood Pressure 118/78 05/27/2020 10:16 AM CDT Pulse 114 05/27/2020 10:16 AM CDT Temperature - - Respiratory Rate 16 05/27/2020 10:16 AM CDT Oxygen Saturation 98% 05/27/2020 10:16 AM CDT Inhaled Oxygen Concentration - - Weight 74.4 kg (164 lb) 05/27/2020 10:16 AM CDT Height 165.1 cm (5' 5 ) 05/27/2020 10:16 AM CDT Body Mass Index 27.29 05/27/2020 10:16 AM CDT documented in this encounter Progress Notes * Delonte Adkins MD - 05/27/2020 10:[address] Tomas Martinez presents to the office with complaints of new symptoms of positional headache and throbbing sound to left ear for the past month. CClifford RN Subjective: Patient ID: Michelle Gomez is a 34 y.o. female. ZE Martinez is back to see us today. She had seen Dr. Diego recently. No evidence for papilledema. She does have headaches worse when she leans over Valsalva's and associate with certain positions. She is now 25 weeks . Doing pretty well overall. Headaches however are quite prominent particular occipital and positional and worse when she leans over. Gets some visual changes with this aswell. Disc margins being sharp is reassuring. Lumbar puncture could be entertained to measure opening pressure and determine where there is any evidence of pseudotumor cerebra. I think that is likely low yield at this juncture. I do not want to invite more symptomatology unnecessarily. She is well read and has valid concerns about many issues on the differential diagnosis. We talked about potentially getting her up to [facility] get to get their opinion regarding appropriate management of pseudotumor cerebri should that be demonstrated later. I however want to be cautious about Badillo treatment but also evaluation because I do not want to exacerbate her symptoms. MRI and MR a (MRV) could be useful to exclude the sagittal sinus thrombosis (albeit a remote possibility.) Exam today is reassuring disc margins are quite clearly sharp. But she does give a fairly positional type headache and describes the throbbing in the head and other symptoms that could be construed as possibly related to intracranial pressure. 1. Consider opinion from tertiary neurology center regarding appropriate treatment and evaluation. Is not clear what the best treatment during would be she is disinclined to take things like Topamax and a number of other agents saw a would welcome their opinion regarding appropriate diagnostic and therapeutic interventions. I think they would be enthusiastic about getting an MRV to make sure that there is no evidence for sagittal sinus thrombosis. We can get that ball rolling. She will talk with Rachelle Joseph her OB regarding the above and see what her opinion is regarding treatment measures and diagnostic considerations. Patient's problem list, medications, allergies, past medical, surgical, social and family historieswere reviewed and updated as appropriate. Patient Active Problem List Diagnosis ??? Migraines ??? Panic attack ??? Seborrheic keratoses ??? Neck pain ??? Pre-conception counseling ??? Cervicocranial syndrome of cervical region ??? Cervical spondylosis ??? Influenza A ??? Visual changes ??? Ophthalmic migraine Patient Active Problem List Diagnosis Date Noted ??? Ophthalmic migraine 03/04/2020 ??? Visual changes 02/22/2020 ??? Influenza A 12/24/2019 ??? Cervicocranial syndrome of cervical region 12/21/2019 ??? Cervical spondylosis 12/21/2019 ??? Pre-conception counseling 08/27/2019 ??? Neck pain 11/07/2018 ??? Seborrheic keratoses 01/20/2018 ??? Migraines 01/14/2018 ??? Panic attack 01/14/2018 Past Medical History: Diagnosis Date ??? Acute [...] release Right 10/24/2015 Right hand carpal tunnel release./[place] ??? Foot surgery Left bunionectomy Family History Problem Relation Age of Onset ??? Diabetes Paternal Grandmother ??? Diabetes Paternal Grandfather ??? Celiac disease Mother ??? Migraines Father ??? Cancer Neg Hx ??? Heart disease Neg Hx Social History Socioeconomic History ??? Marital status: Spouse name: Not on file ??? Number of children: 2 ??? Years of education: Not on file ??? Highest education level: Not on file Occupational History ??? 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 Smoking status: Never Smoker ??? Smokeless tobacco: Never Used Substance and Sexual Activity ??? Alcohol use: No Alcohol/week: 0.0 standard drinks ??? Drug use: No ??? Sexual activity: Yes Partners: Male control/protection: None, Rhythm Comment: Mirena inserted and removed 10-23-2018 Other Topics Concern ??? Bike Helmet Yes ??? Caffeine Use Yes ??? Exercise Yes ??? Seat Belt/Car Seat Yes Current Outpatient Medications Medication Sig Dispense Refill ??? magnesium 200 MG TABS tablet Take 200 mg by mouth daily. ??? nortriptyline (PAMELOR) 10 MG capsule Take 6 capsules by mouth nightly. (Patient taking differently: Take 30 mg by mouth nightly. ) 180 capsule 5 ??? vitamin 28-0.8 MG TABS tablet Take 1 tablet by mouth daily. No current facility-administered medications for this visit. Current Outpatient Medications on File Prior to Visit Medication Sig Dispense Refill ??? magnesium 200 MG TABS tablet Take 200 mg by mouth daily. ??? nortriptyline (PAMELOR) 10 MG capsule Take 6 capsules by mouth nightly. (Patient taking differently: Take 30 mg by mouth nightly. ) 180 capsule 5 ??? vitamin 28-0.8 MG TABS tablet Take 1 tablet by mouth daily. No current facility-administered medications on file prior to visit. Allergies Allergen Reactions ??? Augmentin [Amoxicillin-Pot Clavulanate] Nausea And Vomiting There is no immunization history on file for this patient. Review of Systems Constitutional: Negative for chills and fever. HENT: Negative for trouble swallowing. Eyes: Positive for visual disturbance. Respiratory: Negative for shortness of breath. Cardiovascular: Negative for leg swelling. Gastrointestinal: Negative for nausea and vomiting. Endocrine: Negative for cold intolerance and heat intolerance. Genitourinary: Negative for difficulty urinating (incontinence). Musculoskeletal: Negative for joint swelling. Skin: Negative for rash. Neurological: Positive for headaches. Negative except as noted and except for HPI Hematological: Does not bruise/bleed easily. Psychiatric/Behavioral: The patient is not nervous/anxious. All other systems reviewed and are negative. Objective: BP 118/78 Pulse 114 Resp 16 Ht 1.651 m (5' 5 ) Wt 74.4 kg (164 lb) SpO2 98% BMI 27.29 kg/m?? Body mass index is 27.29 kg/m??. Physical Exam Pleasant affable conversant insightful excellent historian. Articulate. Independently ambulatory. Disc margins are sharp bilaterally. No papilledema. Moves all 4 extremities well. Reflexes are symmetric. Good strength. Ambulates independently without any requirement for assistive device. Assessment/Orders: There are no diagnoses linked to this encounter. Plan: Michelle is back to see us today. She had seen Dr. Diego recently. No evidence for papilledema. She does have headaches worse when she leans over Valsalva's and associate with certain positions. She is now 25 weeks . Doing pretty well overall. Headaches however are quite prominent particular occipital and positional and worse when she leans over. Gets some visual changes with this aswell. Disc margins being sharp is reassuring. Lumbar puncture could be entertained to measure opening pressure and determine where there is any evidence of pseudotumor cerebra. I think that is likely low yield at this juncture. I do not want to invite more symptomatology unnecessarily. She is well read and has valid concerns about many issues on the differential diagnosis. We talked about potentially getting her up to [facility] get to get their opinion regarding appropriate management of pseudotumor cerebri should that be demonstrated later. I however want to be cautious about Badillo treatment but also evaluation because I do not want to exacerbate her symptoms. MRI and MR a (MRV) could be useful to exclude the sagittal sinus thrombosis (albeit a remote possibility.) Exam today is reassuring disc margins are quite clearly sharp. But she does give a fairly positional type headache and describes the throbbing in the head and other symptoms that could be construed as possibly related to intracranial pressure. 1. Consider opinion from tertiary neurology center regarding appropriate treatment and evaluation. Is not clear what the best treatment during would be she is disinclined to take things like Topamax and a number of other agents saw a would welcome their opinion regarding appropriate diagnostic and therapeutic interventions. I think they would be enthusiastic about getting an MRV to make sure that there is no evidence for sagittal sinus thrombosis. We can get that ball rolling. She will talk with Rachelle Joseph her OB regarding the above and see what her opinion is regarding treatment measures and diagnostic considerations. documented in this encounter Miscellaneous Notes * Addendum Note - Martha Shell RN - 05/27/2020 10:00 AM CDTAddended by: MARTHA SHELL on: 06/01/2020 12:11 PM Modules accepted: Orders documented in this encounter Plan of Treatment Not on file documented as of this encounter Goals Goal Patient Goal Type Associated Problems Recent Progress Patient-Stated? Author Use sunscreen daily Lifestyle No Divya Cr RN Frequent Skin Checks Lifestyle No Divya Cr RN documented as of this encounter Results * MR Angiography Head wo Contrast (06/02/2020 2:17 PM CDT) Anatomical Region Laterality Modality Head, Vascular Magnetic Resonan ce 06/02/2020 2:17 PM CDT Narrative 06/03/2020 10:08 [place] [address] DIAGNOSTIC IMAGING Name: MICHELLE GOMEZ ? Ordering Phys: DELONTE ADKINS Age: 34 ?Date of : 1985 ? Accession Number: [id number] Date of Service:06/02/2020 ?? Gender: F EXAM [...] AM T: ??06/03/2020 10:05 AM Report ID: [id number] Reading Location: ??[id number] Procedure Note Josh Gómez MD - 06/03/2020 [place] [address] DIAGNOSTIC IMAGING Name: MICHELLE GOMEZ Ordering Phys: DELONTE ADKINS Age: 34 Date of : 1985 Accession Number: [id number] Date of Service:06/02/2020 Gender: F EXAM DESCRIPTION: [...] Josh Gómez M.D. JESSICA: JESSICA Report ID: [id number] Reading Location: [id number] us Delonte Adkins MD [facility] CV MRI ORDERABLES Fin al Result * MRI Brain wo Contrast (06/02/2020 1:54 PM CDT) Anatomical Region Laterality Modality Head Magnetic Resonan ce 06/02/2020 1:54 PM CDT Narrative 06/03/2020 10:08 [place] [address] DIAGNOSTIC IMAGING Name: MICHELLE GOMEZ ? Ordering Phys: DELONTE ADKINS Age: 34 ?Date of : 1985 ? Accession Number: [id number] Date of Service:06/02/2020 ?? Gender: F EXAM [...] AM T: ??06/03/2020 10:05 AM Report ID: [id number] Reading Location: ??[id number] Procedure Note Josh Gómez MD - 06/03/2020 [place] [address] DIAGNOSTIC IMAGING Name: MICHELLE GOMEZ Ordering Phys: DELONTE KAURLOLITA Age: 34 Date of : 1985 Accession Number: [id number] Date of Service:06/02/2020 Gender: F EXAM DESCRIPTION: [...] Josh Gómez M.D. JESSICA: JESSICA Report ID: [id number] Reading Location: [place] [address] Delonte Adkins MD Tim MRI ORDERABLES Final Result documented in this encounter Visit Diagnoses Diagnosis Chronic migraine without aura without status migrainosus, not intractable- Primary Chronic migraine without aura, without mention of intractable migraine without mention of status migrainosus Neck pain Cervicalgia 25 weeks gestation of state, incidental Chronic migraine without aura without status migrainosus, not intractable Chronic migraine without aura, without mention of intractable migraine without mention of status migrainosus Neck pain Cervicalgia 25 weeks gestation of state, incidental Chronic migraine without aura without status migrainosus, not intractable Chronic migraine without aura, without mention of intractable migraine without mention of status migrainosus Neck pain Cervicalgia 25 weeks gestation of state, incidental documented in this encounter Additional Health Concerns Assessment Noted Time PHQ-9 Depression Total Score: 0 11/20/20 19 10:06 AM STRIPING MACHINE OPERATOR documented as of this encounter Care Teams Printing Sales Representative Relationship Specialty Start Date End Date Delonte Marin MD [address] [facility] [address] [place] [address] PCP - General Podiatry 08/23/15 documented as of this encounter
--- OUTSIDE RECORDS SUMMARY | 2024-11-30 10:16 | XMS_ITS | Encounter Summary ---
Author Organization [employer] Address [address] [place] [address] Care Team Providers Care Farmworker Grain Name Role Phone Delonte Marin MD Primary Care Provider +1- [phone] Encounter Details Date Type Department Care Team ([facility] st Contact Info) Description 04/18/2021 Orders Only [facility] Dermatology [address] [place] [address] Sailaja Bianchi LPN [address] [place] [address] Flat wart Social History Tobacco [...] < 140/90 Blood Pressure 118/82(2024 10:05 AM PERSONAL COMPANION) No Delonte Marin MD Use sunscreen daily Lifestyle No Divya Cr, RN Frequent Skin Checks Lifestyle No Divya Cr, RN documented as of this encounter Visit Diagnoses Diagnosis Flat wart Other specified viral warts documented in this encounter Additional Health Concerns Assessment Noted Time PHQ-9 Depression Total Score: 0 10/07/20 10:06 AM PERSONAL COMPANION documented as of this encounter Care Teams Farmworker Grain Relationship Specialty [place] [address] [place] [address] [address] [place] [address] PCP - General Podiatry 08/23/15 documented as of this encounter
--- OUTSIDE RECORDS SUMMARY | 2024-11-30 10:17 | XMS_ITS | Encounter Summary ---
Author Organization [employer] Address [address] [place] [address] Care Team Providers Care Slackman Name Role Phone Delonte Marin MD Primary Care Provider +1- [phone] Reason for Visit * Reason Comments Follow-up Neck Pain Headache Numbness Tingling Encounter Details Date Type Department Care Team (Latest Contact Info) Description 12/21/2019 2:00 PM BIN WORKER Office Visit [facility] Neurosurgery [address] [place] [phone] Levy Colby MD Cervicocranial syndrome of cervical region (Primary Dx); Cervical spondylosis; Neck pain Social History Tobacco Use Types Packs/Day Years [...] Reading Time Taken Comments Blood Pressure 132/80 12/21/2019 2:19 PM BIN WORKER Pulse 86 12/21/2019 2:19 PM BIN WORKER Temperature - - Respiratory Rate - - Oxygen Saturation - - Inhaled Oxygen Concentration - - Weight 71.8 kg (158 lb 6.4 oz) 12/21/2019 2:19 P M BIN WORKER Height - - Body Mass Index 25.96 10/07/2019 10:07 AM BIN WORKER documented in this encounter Progress Notes * Levy Colby MD - 12/21/2019 2:00 PM CST CHIEF COMPLAINT: Follow-up; Neck Pain; Headache; Numbness; and Tingling SUBJECTIVE: Ms Gomez comes in today for follow up for her neck pain and headaches. Patient reports that with activity she has neck pain and headaches. She reports she does have numbness and tingling in her hands, as well. She has had the neck pain and headaches now for several years, on a nearlydaily basis, but at least several times a week. She has had bilateral carpal tunnel release 5 yearsago, but does still have tingling and numbness in both hands. She does not describe any visual complaints of blurring or nausea or vomiting. Of note, she has been seen by Dr. Farfan in Neurology for her migraine type headaches, Dr. Fontanez for possible arthritis, Dr. Johnston for her neck pain, and Dr. Muhammad for her neck pain as well. Cheri sees her chiropractor on a regular basis for her neck pain. She has had her eyes examined, butnot by an daub color mixer. Review of Systems HENT: Positive for tinnitus. Musculoskeletal: Positive for back pain, neck pain and neck stiffness. Neurological: Positive for numbness and headaches. All other systems reviewed and are negative. OBJECTIVE: BP 132/80 Pulse 86 Wt 71.8 kg (158 lb 6.4 oz) BMI 25.96 kg/m?? GENERAL APPEARANCE: Well developed, well nourished and does not appear to be in acute distress. BACK: Mild upper cervical tenderness over the left suboccipital-upper cervical area. No spinous process tenderness or gibbus deformity appreciated on palpation. No paraspinal muscle spasm appreciatedon palpation. GAIT: Gait is steady. MOTOR: Intact strength. NEURO EXAM: Alert and oriented, answers question appropriately. CN II-XII intact. DIAGNOSTIC STUDIES: I did personally review the patient's MRI studies of the brain, cervical, thoracic and lumbar spine obtained in 2018 and 2019 as well as flexion-extension radiographs of the cervical spine obtained in 2019. There is no obvious significant pathology or anatomic abnormality on anyof the studies. All of the studies revealed mild degenerative changes, with no evidence of instability on the flexion-extension radiographs. ASSESSMENT: Diagnosis: 1. Cervicocranial syndrome of cervical region 2. Cervical spondylosis 3. Neck pain Medications provided No orders of the defined types were placed in this encounter. Additional Orders: No orders of the defined types were placed in this encounter. 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 I reassured her that there is no anatomic abnormality that would explain her symptoms, and therefore she does not require any sort of surgical intervention. I did recommend she complete her evaluation byhaving her eyes examined by a daub color mixer for a medical eye exam, to be sure to check for glaucoma as well as papilledema, although both are unlikely. I also recommended she consider referral to Dr. Santana for trial of facet joint nerve blocks or medial branch blocks for the upper cervical-suboccipital area pain, to see if this gives significant temporary symptomatic relief, at which point she would be an excellent candidate for radiofrequency ablation of the same nerves for long-term symptomatic relief. She will consider this before making the referral. Finally, I also recommended she follow-up with Dr. Farfan for her migraine headaches, since she is currently only on nortriptyline and NSAID as a preventative, and she uses Imitrex to try to abortthe headaches once they have occurred. PLAN: 1. Activity to comfort and tolerance. 2. Continue with current medications. 3. Follow up if needed. All questions have been answered and patient verbalizes understanding. WORKER documented in this encounter Plan of Treatment Not on file documented as of this encounter Goals Goal Patient Goal Type Associated Problems Recent Progress Patient-Stated? Author Use sunscreen daily Lifestyle No Divya Cr RN Frequent Skin Checks Lifestyle No Divya Cr RN documented as of this encounter Visit Diagnoses Diagnosis Cervicocranial syndrome of cervical region- Primary Cervical spondylosis Cervical spondylosis without myelopathy Neck pain Cervicalgia documented in this encounter Additional Health Concerns Assessment Noted Time PHQ-9 Depression Total Score: 0 10/07/20 19 10:06 AM BIN WORKER documented as of this encounter Care Teams Slackman Relationship Specialty Start Date End Date Delonte Marin MD [address] [facility] [address] [place] [address] PCP - General Podiatry 08/23/15 documented as of this encounter
--- OUTSIDE RECORDS SUMMARY | 2024-11-30 10:17 | XMS_ITS | Encounter Summary ---
Author Organization [employer] Address [address] [place] [address] Care Team Providers Care Wire Photo Operator News Name Role Phone Delonte Marin MD Primary Care Provider +1- [phone] Reason for Visit * Reason Onset Date Comments Telephone Call 08/14/2019 Encounter Details Date Type Department Care Team (Late st Contact Info) Description 08/14/[address] [place] [address] Jessica Welch [address] [place] [address] Telephone Call Social History Tobacco Use Types [...] encounter Miscellaneous Notes * Telephone Encounter - Jessica Keith CMA - 08/14/2019 10:49 AM CDT Called pt left message to call clinic to schedule appointment * Telephone Encounter - Jessica Keith CMA - 08/14/2019 10:49 AM CDT ----- Message from Lillian Montenegro Ernestineramonita sent at 08/14/2019 8:54 AM CDT ----- Regarding: Sinus/URI Provider: REESE Roblero: Sinus/URI Patient called stating she is still having a lot of congestion and sinus pain didn't know if she needed to come back in or if there could be some antibiotics prescribed. She is asking for a return call and can be reached at [phone] documented in this encounter Plan of Treatment Not on file documented as of this encounter Goals Goal Patient Goal Type Associated Problems Recent Progress Patient-Stated? Author Use sunscreen daily Lifestyle No Divya Cr, RN Frequent Skin Checks Lifestyle No Divya Cr, RN documented as of this encounter Visit Diagnoses Not on filedocumented in this encounter Care Teams Wire Photo Operator News Relationship Specialty Start Date End Date Delonte Marin MD [address] [place] [address] [address] [place] [address] PCP - General Podiatry 08/23/15 documented as of this encounter
--- OUTSIDE RECORDS SUMMARY | 2024-11-30 10:17 | XMS_ITS | Encounter Summary ---
Author Organization Present Address [address] [place], [place] [address] Care Team Providers Care Test Manager Name Role Phone Delonte Marin MD Primary Care Provider +1- [phone] Reason for Visit * Reason Comments Gynecologic Exam Encounter Details Date Type Department Care Team (Latest Contact Info) Description 08/27/2019 12:30 PM CDT Office Visit [facility] [address] [place] [address] Chloe Benson CNM [address] [place] [address] Encounter for well woman exam with routine gynecological exam (Primary Dx); Contraceptive education; Panic attack; Migraine without status migrainosus, not intractable, unspecified migraine type; Pre-conception counseling Social History Tobacco Use Types Packs/Day [...] Sign Reading Time Taken Comments Blood Pressure 132/82 08/27/2019 12:40 PM CDT Pulse 114 08/27/2019 12:40 PM CDT Temperature 36.6 ??C (97.8 ??F) 08/27/2019 12:40 PM C DT Respiratory Rate 16 08/27/2019 12:40 PM CDT Oxygen Saturation 98% 08/27/2019 12:40 PM CDT Inhaled Oxygen Concentration - - Weight 72.7 kg (160 lb 3.2 oz) 08/27/2019 12:40 PM CDT Height 166.4 cm (5' 5.5 ) 08/27/2019 12:40 PM CD T Body Mass Index 26.25 08/27/2019 12:40 PM CDT documented in this encounter Patient Instructions * Patient Instructions* Chloe Benson CNM - 08/27/2019 12:30 PM CDT Images from the original note [...] you are older than 45 and are -[place] or have a father or brother who got prostate cancer when he was younger than 65. When should you call for help? Watch closely for changes in your health, and be sure to contact your doctor if you have any problems or symptoms that concern you. Where can you learn more? Go to the Search Health Library box on Squareknot [email or web address]/ by clicking on the magnifying glass tab. Enter P072 in the search box to learn more about Well Visit, Ages 18 to 50: Care Instructions. Not on Squareknot? Go to [email or web address]/ and click the Sign Up Now linkto request an activation code. Current as of: March 29, 2017 Content Version: 11.4 ?? 8023-1720 Enlighted, [employer] international. Care instructions adapted under license by your healthcare professional. This care instruction is for use with your licensed healthcare professional. If you have questions about a medical condition or this instruction, always ask your healthcare professional. [facility]in [facility], [employer] international disclaims any warranty or liability for your use of this information. ?? Preconceptional, Vit D/MVI documented in this encounter Progress Notes * Chloe Benson CNM - 08/27/2019 12:30 PM CDT [facility] [address] [place] [address] Dept: [phone] Dept Loc: [phone] Loc Date: 08/27/2019 Name: Michelle Gomez : 1985 PCP: Delonte Marin MD Subjective: Patient ID: Michelle Gomez is a 34 y.o. female Chief Complaint Patient presents with ??? Gynecologic Exam HPI Her last gynecological exam was-2013 Her last Pap smear was-probably 2013 with her 2nd No LMP recorded. Sexually active: Yes Change in partners: No-had cervical cultures with pregnacy Her current method of contraception is none-Avoids fertile days She does not perform self breast exams. Her last mammogram was-not a candidate yet. Caffeine intake is 1 daily-coffee She is not a current smoker Her last colonoscopy was-not a candidate She would not like to receive the flu immunization. I encouraged her to consider getting. Had Gardasil before becoming sexually active. Review of Systems Constitutional: Negative for chills, fatigue, fever and unexpected weight change. HENT: Negative for congestion, dental problem, ear pain, hearing loss, nosebleeds, rhinorrhea, sorethroat, tinnitus and trouble swallowing. Eyes: Negative for photophobia, pain and discharge. Respiratory: Negative for cough, shortness of breath and wheezing. Cardiovascular: Negative for chest pain and palpitations. Gastrointestinal: Negative for abdominal distention, abdominal pain, blood in stool, constipation and diarrhea. Endocrine: Negative for heat intolerance. Genitourinary: Negative for dyspareunia, dysuria, frequency, genital sores, menstrual problem and vaginal discharge. Menses monthly and feels she had a withdrawal from the Mirena and glad she got removed. Musculoskeletal: Positive for neck pain (Has bulging discs in her neck. Had PT and following with achiropractor. Stable for now but can't do certain exercises.Just started on Celebrex. ). Negative for arthralgias, back pain and myalgias. Carpal tunnel surgery both wrists successful. Skin: She had a full body mapping by director strategic account management. Neurological: Positive for headaches (Feels migraines have reduced. Has 3-4 per month. Imitex prn and only using Fioricet if really bad without relief. nortriptyline helping.). Negative for dizziness, tremors, seizures, syncope and weakness. Hematological: Does not bruise/bleed easily. Psychiatric/Behavioral: Negative for sleep disturbance and suicidal ideas. The patient is not nervous/anxious. Panic attacks better since having Mirena removed. She thinks Pamelor is helping. Past Medical History: Past Medical History: Diagnosis Date ??? Acute sinusitis ??? Carpal tunnel syndrome Neck disc problems.Sees chiropractor and Celebrex ??? Gastroenteritis ??? Headache ??? Migraines Saw Sullivant. Uses Imitrex and nortriptyline. Less migraines since Mirena out. ??? Panic attack Surgical History: Past Surgical History: Procedure Laterality Date ??? Carpal tunnel release Left 09/12/2015 Left hand carpal tunnel release./[place] ??? Carpal tunnel release Right 10/24/2015 Right hand carpal tunnel release./[place] ??? Foot surgery Left bunionectomy Family History: [...] on file Occupational History ??? 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 Financial resource strain: Not on file ??? Food insecurity: Worry: Not on file Inability: Not on file ??? Transportation needs: Medical: Not on file Non-medical: Not on file Tobacco Use ??? Smoking status: Never Smoker ??? Smokeless tobacco: Never Used Substance and Sexual Activity ??? Alcohol use: No Alcohol/week: 0.0 standard drinks ??? Drug use: No ??? Sexual activity: Yes Partners: Male control/protection: None, Rhythm Comment: Mirena inserted and removed 10-23-2018 Lifestyle ??? Physical activity: Days per week: Not on file Minutes per session: Not on file ??? Stress: Not on file Relationships ??? Social connections: Talks on phone: Not on file Gets together: Not on file Attends episcopal service: Not on file Active member of club or organization: Not on file Attends meetings of clubs or organizations: Not on file Relationship status: Not on file ??? Intimate partner violence: Fear of current or ex partner: Not on file Emotionally abused: Not on file Physically abused: Not on file Forced sexual activity: Not on file Other Topics Concern ??? Adopted Not Asked ??? Service Not Asked ??? Are you having sex? Not Asked ??? Bike Helmet Yes ??? Are you trying to get ? Not Asked ??? Occupational Exposure Not Asked ??? Caffeine Use Yes ??? Other Not Asked ??? Exercise Yes ??? Seat Belt/Car Seat Yes ??? Hobbies Not Asked ??? Special Diet Not Asked ??? Living Arrangement Not Asked ??? Postmenopausal? (if yes, comment age at menopause) Not Asked Social History Narrative ??? Not on file Problem List Patient Active Problem List Diagnosis ??? Migraines ??? Panic attack ??? Seborrheic keratoses ??? Pre-conception counseling Immunizations There is no immunization history on file for this patient. Allergies: Patient has no known allergies. Medication List megxnsesvq-ppokpcmeqxwzv-ooolwotj (FIORICET, ESGIC) 50-325-40 MG per tablet celecoxib (CELEBREX) 200 MG capsule ELDERBERRY PO magnesium 200 MG TABS tablet nortriptyline (PAMELOR) 10 MG capsule SUMAtriptan succinate (IMITREX) 100 MG tablet ibuprofen (ADVIL) 200 MG CAPS No current facility-administered medications for this visit. Objective: Blood pressure 132/82, pulse 114, temperature 36.6 ??C (97.8 ??F), resp. rate 16, height 1.664 m (5' 5.5 ), weight 72.7 kg (160 lb 3.2 oz), SpO2 98 %., weight 77.1 kg (170 lb), Body mass index is 26.25 kg/m??. Physical Exam Vitals signs reviewed. Constitutional: General: She is not in acute distress. Appearance: She is well-developed. HENT: Right Ear: External ear normal. Left Ear: External ear normal. Nose: Nose normal. Mouth/Throat: Pharynx: No oropharyngeal exudate. Eyes: General: Right eye: No discharge. Left eye: No discharge. Conjunctiva/sclera: Conjunctivae normal. Pupils: Pupils are equal, round, and reactive to light. Neck: Musculoskeletal: Normal range of motion and neck supple. Thyroid: No thyromegaly. Cardiovascular: Rate and Rhythm: Normal rate and regular rhythm. Heart sounds: Normal heart sounds. No murmur. Pulmonary: Effort: Pulmonary effort is normal. No [...] is no mass. Tenderness: There is no tenderness. There is no guarding or rebound. Hernia: No hernia is present. Genitourinary: General: Normal vulva. Exam position: Lithotomy position. Vagina: Normal. No vaginal discharge. Uterus: Normal. Adnexa: Right adnexa normal and left adnexa normal. Rectum: Normal. Comments: Co-test sent; denies need cervical cultures; uterus anteverted; good return on Kegel's. Musculoskeletal: Normal range of motion. General: No tenderness. Lymphadenopathy: Cervical: No cervical adenopathy. Skin: General: Skin is dry. Coloration: Skin is not pale. Findings: No erythema or rash. Comments: She has many area of sun damage, freckles and moles. Had a body mapping with a director strategic account management and was benign. Neurological: Mental Status: She is alert and oriented to person, place, and time. Psychiatric: Behavior: Behavior normal. Thought Content: Thought content normal. Judgment: Judgment normal. Assessment: 1. Encounter for well woman exam with routine gynecological exam - Liquid-Based Pap Specimen; Future 2. Contraceptive education 3. Panic attack 4. Migraine without status migrainosus, not intractable, unspecified migraine type 5. Pre-conception counseling Requested Prescriptions No prescriptions requested or ordered in this encounter Plan: Through review of pre-conceptional counseling discussing risks of current medication. Good health habits. Encouraged to consider ear piercing for migraine management. )Panic attacks in control. Encouraged MVI and Vit D3 2-3000 units. Will continue follow up with Dr. Fafran for migraine management. She feels much better off IUD and will use rhythm. Mcguffey times discussed. Questions and concerns addressed and she verbalized understanding. Next Visit: Follow up in about 1 year (around 08/27/2020), or if symptoms worsen or fail to improve, for annual or if + test. Encounter of: 08/27/2019 Signed: Chloe Benson CNM 08/27/2019 8:47 PM documented in this encounter Plan of Treatment Not on file documented as of this encounter Goals Goal Patient Goal Type Associated Problems Recent Progress Patient-Stated? Author Use sunscreen daily Lifestyle No Divya Cr, RN Frequent Skin Checks Lifestyle No Divya Cr, RN documented as of this encounter Visit Diagnoses Diagnosis Encounter for well woman exam with routine gynecological exam- Primary Contraceptive education Other general counseling and advice for contraceptive management Panic attack Panic disorder without agoraphobia Migraine without status migrainosus, not intractable, unspecified migraine type Pre-conception counseling Other procreative management counseling and advice documented in this encounter Care Teams Test Manager Relationship Specialty Start Date End Date Delonte Marin MD [address] [place] [address] [place] [address] PCP - General Podiatry 08/23/15 documented as of this encounter
--- OUTSIDE RECORDS SUMMARY | 2024-11-30 10:17 | XMS_ITS | Encounter Summary ---
Author Organization [employer] Address [address] [place] [address] Care Team Providers Care Straightener Name Role Phone Delonte Marin MD Primary Care Provider +1- [phone] Reason for Visit * Reason Onset Date Comments Numbness in Hands 12/24/2019 Encounter Details Date Type Department Care Team (Late st Contact Info) Description 12/24/[address] [place] [address] Wendi Prince, [facility] [address] [address] [place] [address] Numbness in Hands Social History Tobacco Use Types Packs/Day Years [...] Notes * Telephone Encounter - Wendi Brandt CMA - 12/24/2019 11:11 AM STITCHDOWNS TOE FORMER Call to patient, states that the numbness started a couple days ago when she got the flu symptoms. She has a history of neck pain and carpal tunnel. She saw Dr. Colby on Saturday and states that it wasn't happening then. Dr Colby's note contradicts this as it mentions the carpal tunnel release and thatshe's having the numbness and tingling as well. I told her it sounds more related to what she has already had going on but would discuss with Dr. Marin. CHDOWNS TOE FORMER * Telephone Encounter - Wendi Brandt CMA - 12/24/2019 11:10 AM STITCHDOWNS TOE FORMER ----- Message from Lillian Valdez sent at 12/24/2019 9:57 AM STITCHDOWNS TOE FORMER ----- Regarding: numbness Provider: Tomas RE: numbness Patient called stating she forgot to tell Dr Marin one of the symptoms she has been having. She is not sure if she should be concerned about this or not. She states her hands keep going numb. She is asking for a return call and can be reached at [phone] CHDOWNS TOE FORMER documented in this encounter Plan of Treatment Not on file documented as of this encounter Goals Goal Patient Goal Type Associated Problems Recent Progress Patient-Stated? Author Use sunscreen daily Lifestyle No Divya rC, RN Frequent Skin Checks Lifestyle No Divya Cr, RN documented as of this encounter Visit Diagnoses Not on filedocumented in this encounter Additional Health Concerns Assessment Noted Time PHQ-9 Depression Total Score: 0 10/07/20 19 10:06 AM STITCHDOWNS TOE FORMER documented as of this encounter Care Teams Straightener Relationship Specialty [place] [address] [place] [address] [address] [place] [address] PCP - General Podiatry 08/23/15 documented as of this encounter
--- OUTSIDE RECORDS SUMMARY | 2024-11-30 10:17 | XMS_ITS | Encounter Summary ---
Author Organization [employer] Address [address] [place] [address] Care Team Providers Care Medical Logistics Specialist Name Role Phone Delonte Marin MD Primary Care Provider +1- [phone] Reason for Visit * Reason Comments Sore Throat Encounter Details Date Type Department Care Team ([facility] st Contact Info) Description 10/07/2019 10:00 AM LAY OUT MAKER Office Visit [address] [place] [address] Heide Roblero MD [address] [place] [address] [address] [place] [address] Sore throat (Primary Dx) Social History Tobacco [...] Reading Time Taken Comments Blood Pressure 102/70 10/07/2019 10:07 AM LAY OUT MAKER Pulse 106 10/07/2019 10:07 AM LAY OUT MAKER Temperature 36.1 ??C (97 ??F) 10/07/2019 10:07 AM LAY OUT MAKER Respiratory Rate 12 10/07/2019 10:07 AM LAY OUT MAKER Oxygen Saturation 98% 10/07/2019 10:07 AM LAY OUT MAKER Inhaled Oxygen Concentration - - Weight 71.9 kg (158 lb 9.6 oz) 10/07/2019 10:07 AM LAY OUT MAKER Height 166.4 cm (5' 5.5 ) 10/07/2019 10:07 AM CS T Body Mass Index 25.99 10/07/2019 10:07 AM LAY OUT MAKER documented in this encounter Patient Instructions * Patient Instructions* Heide Roblero MD - 10/07/2019 10:00 AM LAY OUT MAKER Images from the original note were not included. Sore Throat: Care Instructions Your Care Instructions Infection by bacteria or a virus causes most sore throats. Cigarette smoke, dry air, air pollution,allergies, and yelling can also cause a sore throat. Sore throats can be painful and annoying. Fortunately, most sore throats go away on their own. If you have a bacterial infection, your doctor may prescribe antibiotics. Follow-up care is a galvez part of your treatment and safety. Be sure to make and go to all appointments, and call your doctor if you are having problems. It's also a good idea to know your test resultsand keep a list of the medicines you take. How can you care for yourself at home? ?? If your doctor prescribed antibiotics, take them as directed. Do not stop taking them just because you feel better. You need to take the full course of antibiotics. ?? Gargle with warm salt water once an hour to help reduce swelling and relieve discomfort. Use 1 teaspoon of salt mixed in 1 cup of warm water. ?? Take an rrmg-gcu-fmbqrlp pain medicine, such as acetaminophen (Tylenol), ibuprofen (Advil, Motrin), or naproxen (Aleve). Read and follow all instructions on the label. ?? Be careful when taking ysar-kph-yyftovi cold or flu medicines and Tylenol at the same time. Manyof these medicines have acetaminophen, which is Tylenol. Read the labels to make sure that you are not taking more than the recommended dose. Too much acetaminophen (Tylenol) can be harmful. ?? Drink plenty of fluids. Fluids may help soothe an irritated throat. Hot fluids, such as tea or soup, may help decrease throat pain. ?? Use gpvd-kes-euzczde throat lozenges to soothe pain. Regular cough drops or hard candy may also help. These should not be given to young children because of the risk of choking. ?? Do not smoke or allow others to smoke around you. If you need help quitting, talk to your doctorabout stop-smoking programs and medicines. These can increase your chances of quitting for good. ?? Use a vaporizer or humidifier to add moisture to your bedroom. Follow the directions for cleaning the machine. When should you call for help? Call your doctor now or seek immediate medical care if: ? You have new or worse trouble swallowing. ? Your sore throat gets much worse on one side. ??Watch closely for changes in your health, and be sure to contact your doctor if you do not get better as expected. Where can you learn more? Go to the Search Medical Library option found under the Resources tab in GuestDriven [email or web address] Global [email or web address]/. If you do not have access to GuestDriven, you can visit [email or web address] and select Sittercity from the menu on the left. Enter U420 in the searchbox to learn more about Sore Throat: Care Instructions. Not on GuestDriven? Go to [email or web address]/[email or web address] and Life [email or web address]/ and click the Sign Up Now linkto request an activation code. Current as of: September 07, 2018 Content Version: 12.2 ?? 6212-4051 Launchups, [employer]. Care instructions adapted under license by your healthcare professional. This care instruction is for use with your licensed healthcare professional. If you have questions about a medical condition or this instruction, always ask your healthcare professional. brittnimercy health anderson hospitalCyberArk Software, Ltd., [employer] disclaims any warranty or liability for your use of this information. OUT MAKER documented in this encounter Progress Notes * Heide Roblero MD - 10/07/2019 10:00 AM CST [address] [facility] [address] Dept: [phone] Dept Loc: [phone] Loc Date: 10/07/2019 Name: Michelle Gomez : 1985 PCP: Delonte Marin MD Subjective: Patient ID: Michelle Gomez is a 34 y.o. female. Chief Complaint Patient presents with ??? Sore Throat HPI Patient here for sore throat. She has had severe throat pain for the past two days. She has tried ibuprofen with mild relief. She feels more pain on her left side of her throat when swallowing. When she looked in her mouth she saw white stuff on her tonsil and wanted to make sure she did not have strep throat. She denies any fevers. Sick contacts at home with viral syndromes. Patient's medications, allergies, past medical, surgical, social and family histories were reviewedand updated as appropriate. Review of Systems Constitutional: Negative for chills, fatigue and fever. HENT: Positive for postnasal drip and sore throat. Negative for congestion, ear discharge, ear pain, facial swelling, rhinorrhea, sinus pressure, sinus pain, sneezing and tinnitus. Eyes: Negative. Respiratory: Negative for shortness of breath. Cardiovascular: Negative for chest pain. Gastrointestinal: Negative for abdominal pain, diarrhea, nausea and vomiting. Musculoskeletal: Negative for arthralgias, joint swelling and neck stiffness. Skin: Negative for rash. Neurological: Negative for dizziness, light-headedness and headaches. Objective: Blood pressure 102/70, pulse 106, temperature 36.1 ??C (97 ??F), resp. rate 12, height 1.664 m (5' 5.5 ), weight 71.9 kg (158 lb 9.6 oz), SpO2 98 %., BMI Body mass index is 25.99 kg/m??. Physical Exam Vitals signs and nursing note reviewed. Constitutional: General: She is not in acute distress. Appearance: She is well-developed. HENT: Head: Normocephalic and atraumatic. Right Ear: Tympanic membrane, ear canal and external ear normal. Left Ear: Tympanic membrane, ear canal and external ear normal. Nose: Congestion present. Mouth/Throat: Pharynx: Posterior oropharyngeal erythema present. No oropharyngeal exudate. Tonsils: No tonsillar exudate. Swellin+ on the right. 1+ on the left. Eyes: Conjunctiva/sclera: Conjunctivae normal. Pupils: Pupils are equal, round, and reactive to light. Neck: Musculoskeletal: Normal range of motion and neck supple. Cardiovascular: Rate and Rhythm: Normal rate and regular rhythm. Heart sounds: Normal heart sounds. Pulmonary: Effort: Pulmonary effort is normal. Breath sounds: Normal breath sounds. Lymphadenopathy: Cervical: Cervical adenopathy present. Skin: Findings: No rash. Neurological: Mental Status: She is alert. Assessment/Plan: Viral pharyngitis Rapid strep negative. Plenty rest. Plenty fluids. Problem List Items Addressed This Visit None Visit Diagnoses Sore throat - Primary Relevant Orders AMB POCT Rapid Strep A (Completed) Next Visit: Follow up if symptoms worsen or fail to improve. Encounter of: 10/07/2019 Signed: Heide Roblero MD 10/07/2019 12:11 PM OUT MAKER documented in this encounter Plan of Treatment Not on file documented as of this encounter Goals Goal Patient Goal Type Associated Problems Recent Progress Patient-Stated? Author Use sunscreen daily Lifestyle No Divya Cr, RN Frequent Skin Checks Lifestyle No Divya Cr, RN documented as of this encounter Procedures Procedure Name Priority Date/Time Associated Diagnosis Comments AMB POCT RAPID STREP A Routine 10/07/2019 Sore throat documented in this encounter Results * AMB POCT Rapid Strep A (10/07/2019) Rapid Strep A Screen Negative Negative [facility] POCTS 10/07/2019 us Heide Roblero MD POINT OF CARE TEST ORDERABLE S Final Result [facility] POCTS documented in this encounter Visit Diagnoses Diagnosis Sore throat- Primary Acute pharyngitis documented in this encounter Additional Health Concerns Assessment Noted Time PHQ-9 Depression Total Score: 0 10/07/20 19 10:06 AM LAY OUT MAKER documented as of this encounter Care Teams Medical Logistics Specialist Relationship Specialty Start Date End Date Delonte Marin MD [address] [facility] [address] [place] [id number] PCP - General Podiatry 08/23/15 documented as of this encounter
--- OUTSIDE RECORDS SUMMARY | 2024-11-30 10:17 | XMS_ITS | Encounter Summary ---
Author Organization [employer] Address [address] [place] [address] Care Team Providers Care Manual Writer Name Role Phone Delonte Marin MD Primary Care Provider +1- [phone] Reason for Visit * Reason Onset Date Comments update after wearing collar 12/15/2019 Encounter Details Date Type Department Care Team ([facility] st Contact Info) Description 12/15/2019 Telephone [facility] Neurosurgery [address] [place] [address] Fiordaliza Contreras RN [address] [place] [address] update after wearing collar Social History Tobacco Use Types Packs/Day Years [...] encounter Miscellaneous Notes * Telephone Encounter - Fiordaliza Contreras RN - 12/15/2019 3:19 PM CST Discussed with Judy Hernandez CNP and she wants pt to follow up with Dr Colby for further recommendations.PAULETTE Hernandez CNP/Cassandra RN PC to pt and she is informed of Dr Kim's recommendation and she VPU. Pt informed medical office receptionist will call her with an appt. PVU.-FRANCIS Hernandez CNP/Cassandra RN T WRITER * Telephone Encounter - Fiordaliza Contreras RN - 12/15/2019 10:12 AM CST PC from pt stating she is calling with an update after wearing the neck collar for two weeks. She states she did not like the way she felt wearing the neck collar. She states it made her neck musclesfeel tired when she was wearing the collar and her neck muscles were sore. She states she is not sure what the next step is and that any activity triggers the pain. Pt informed that I will discuss with Judy Hernandez CNP and call her back. PVU.-Cassandra GRACIA T WRITER documented in this encounter Plan of Treatment [...] Total Score: 0 10/07/20 19 10:06 AM GRANT WRITER documented as of this encounter Care Teams Manual Writer Relationship Specialty Start Date End Date Delonte Marin MD [address] [facility] [address] [place] [address] PCP - General Podiatry 08/23/15 documented as of this encounter
--- OUTSIDE RECORDS SUMMARY | 2024-11-30 10:17 | XMS_ITS | Encounter Summary ---
Author Organization [email or web address] Address [address] [place] [address] Care Team Providers Care Timber Treating Tank Operator Name Role Phone Delonte Marin MD Primary Care Provider +1- [phone] Reason for Visit * Reason Comments Flu-like Symptoms 3 days Encounter Details Date Type Department Care Team (Late st Contact Info) Description 12/24/2019 9:00 AM SAP BW ARCHITECT Office Visit [address] [place] [address] Delonte Marin MD [address] [place] [address] [address] [place] [address] Influenza A (Primary Dx) Social History Tobacco Use Types [...] Sign Reading Time Taken Comments Blood Pressure 126/84 12/24/2019 9:22 AM SAP BW ARCHITECT Pulse 124 12/24/2019 9:22 AM SAP BW ARCHITECT Temperature 37.9 ??C (100.3 ??F) 12/24/2019 9:[address] Respiratory Rate 12 12/24/2019 9:22 AM SAP BW ARCHITECT Oxygen Saturation 97% 12/24/2019 9:22 AM SAP BW ARCHITECT Inhaled Oxygen Concentration - - Weight 73.5 kg (162 lb) 12/24/2019 9:22 AM SAP BW ARCHITECT Height 166.4 cm (5' 5.5 ) 12/24/2019 9:22 AM SAP BW ARCHITECT Body Mass Index 26.55 12/24/2019 9:22 AM SAP BW ARCHITECT documented in this encounter Progress Notes * Delonte Marin MD - 12/24/2019 9:00 AM CST [address] [facility] [address] Dept: [phone] Dept Loc: [phone] Loc Date: 12/24/2019 Name: Michelle Gomez : 1985 PCP: Delonte Marin MD Subjective: Patient ID: Michelle Gomez is a 34 y.o. female. CC: Michelle Gomez is a 34 y.o. patient is seen today for Chief Complaint Patient presents with ??? Flu-like Symptoms 3 days NOTE: Abbreviations, medical idioms and medical terminology are frequently used in office visit notes. Please call my nurse if you have questions about what an idiom means. (examples = CC, HPI, ROS, FU, HTN, DM, SOB, PERERA, TM, WCC, etc.) HPI Cough. I have a fever of 101, fatigue, muscle aches, and dry cough for 3 days since coming home from [place]. Patient complains of acute cough.The cough began three day(s) ago and is moderate and gradually worsening. She has dry cough. She also has chills, fatigue, fevers and malaise, and muscle cramps. She denies anorexia, and chest pain. She has tried OTC Tylenol and none without relief. Patient's medications, allergies, past medical, surgical, social and family histories were reviewedand updated as appropriate. Review of Systems A 14-point ROS was performed. Additional ROS detailed in the HPI. Constitutional: Has fever Has chills. Fatigue . HEENT: No sore throat No earache. . Eyes: No diplopia No vision changes. . Respiratory: Has cough No dyspnea. . Cardiovascular: No chest pain No edema. . Gastrointestinal: No diarrhea No nausea. . Endocrine: No excessive thirst. . Musculoskeletal: No muscle pain No bone pain. Myalgia . Genitourinary: No hematuria No bladder pain. . Skin: No rash Not pale. . Neurological: No paresthesia No tremors. . Allergic/Immunologic: No rhinitis No hives. . Hematological: No bleeding Not pale. No LA . Psychiatric/Behavioral: No amnesia No anxiety. . Objective: Blood pressure 126/84, pulse 124, temperature 37.9 ??C (100.3 ??F), resp. rate 12, height 1.664 m (5' 5.5 ), weight 73.5 kg (162 lb), SpO2 97 %., BMI Body mass index is 26.55 kg/m??. Physical Exam Constitutional: Oriented to person, place, and time. Well-developed. Well- nourished. Sick appearing. Head: Normocephalic and atraumatic. . . . Eyes:. . . . ENT:. . . . Neck: Supple. Normal range of motion. . . . Pulmonary/Chest: Normal effort. No respiratory distress. Normal breath sounds. No wheezing. . . . Musculoskeletal: Normal range of motion. Normal strength. Normal gait. . . . . Neurological: Sensation intact. Normal co-ordination. . . . Skin: Skin is warm and dry. Not pale. No lesions. . . . Lymph:. . . . Psychiatric: Mood and affect normal. Behavior is normal. Judgment and thought content normal. . . . Current medications: ??? ELDERBERRY PO, 0 ??? ibuprofen (ADVIL) 200 MG CAPS, 0 ??? magnesium 200 MG TABS tablet, 0 ??? nortriptyline (PAMELOR) 10 MG capsule, 0 ??? SUMAtriptan succinate (IMITREX) 100 MG tablet, 0 ??? [DISCONTINUED] pvrfvohakw-taugqbuziornn-zfnrogsm (FIORICET, ESGIC) 50-325-40 MG per tablet, 0 ??? oseltamivir (TAMIFLU) 75 MG capsule, 0 ??? [DISCONTINUED] celecoxib (CELEBREX) 200 MG capsule, 0 Assessment/Plan: Problem List Items Addressed This Visit Influenza A - Primary Relevant Medications oseltamivir (TAMIFLU) 75 MG capsule Other Relevant Orders POCT Influenza A/B (Completed) BMI: Body mass index is 26.55 kg/m??. Wt Readings from Last 3 Encounters: 12/24/19 73.5 kg (162 lb) 12/21/19 71.8 kg (158 lb 6.4 oz) 11/30/19 71.2 kg (157 lb) ASSESSMENT & PLAN: 1. Influenza A STATUS: Influenza A is positive. RECOMMENDATIONS: Discussed that it has been more than two days and Tamiflu is not recommended at this point and would maybe only improve one day. Recommended rest, fluids, and Tylenol. FOLLOW UP: Telephone us or return to office if worse. MEDICATION: ORDERS: - POCT Influenza A/B - Tamiflu Questions have been answered. Patient verbalizes understanding and agreement with the plan. Education has been provided. ORDERS: Orders Placed This Encounter Medications ??? oseltamivir (TAMIFLU) 75 MG capsule Sig: Take 1 capsule by mouth 2 (two) times daily for 10 days. Dispense: 20 capsule Refill: 0 TESTS: Office Visit on 12/24/2019 Component Date Value Ref Range Status ??? Rapid Influenza A Ag 12/24/2019 Positive* Negative, Indeterminate Final ??? Rapid Influenza B Ag 12/24/2019 Negative Negative, Indeterminate Final Next Visit: No follow-ups on file. Encounter of: 12/24/2019 Signed: Delonte Marin MD 12/25/2019 11:50 AM BW ARCHITECT documented in this encounter Plan of Treatment Not on file documented as of this encounter Goals Goal Patient Goal Type Associated Problems Recent Progress Patient-Stated? Author Use sunscreen daily Lifestyle No Divya Cr RN Frequent Skin Checks Lifestyle No Divya Cr RN documented as of this encounter Procedures Procedure Name Priority Date/Time Associated Diagnosis Comments POCT INFLUENZA A/B Routine 12/24/2019 Influenza A documented in this encounter Results * (ABNORMAL) POCT Influenza A/B (12/24/2019) Rapid Influenza A Ag Positive(A) Negative, Indeterminate [facility] POCTS Rapid Influenza B Ag Negative Negative, Indeterminate [facility] POCTS 12/24/2019 us Delonte Marin MD POINT OF CARE TEST ORDERAB LES Final Result [facility] POCTS documented in this encounter Visit Diagnoses Diagnosis Influenza A- Primary Influenza with other respiratory manifestations documented in this encounter Additional Health Concerns Assessment Noted Time PHQ-9 Depression Total Score: 0 10/07/20 19 10:06 AM SAP BW ARCHITECT documented as of this encounter Care Teams Timber Treating Tank Operator Relationship Specialty Start Date End Date Delonte Marin MD [address] [facility] [address] [place] [address] PCP - General Podiatry 08/23/15 documented as of this encounter
--- OUTSIDE RECORDS SUMMARY | 2024-11-30 10:17 | XMS_ITS | Encounter Summary ---
Author Organization [employer] Address [address] [place] [address] Care Team Providers Care Trade Union Official Name Role Phone Delonte Marin MD Primary Care Provider +1- [phone] Reason for Visit * Reason Onset Date Comments Discharge 08/24/2019 Encounter Details Date Type Department Care Team ([facility] st Contact Info) Description 08/24/2019 Documentation [facility] Physical Therapy [address] [place] [address] Briana Mc, PT [address] [place] [address] Discharge Social History Tobacco Use Types Packs/Day Years [...] as of this encounter Progress Notes * Briana Mc, PT - 08/24/2019 4:27 PM CDT Discharge Note Referring Provider: No ref. provider found Evaluating Therapist: Tom Hughes PT, DPT, PES Supervising Therapist: Tom Hughes PT, DPT, PES Activity Limitation/Participation Restriction: sleeping, driving, and ADL Referring Diagnosis: Chronic neck pain; Neck muscle spasm Treatment Diagnosis: Chronic neck pain; Neck muscle spasm; tight fascia; decreased neck ROM Patient Subjective Report: NA Pain: NA Communication With Other Providers: none Objective Measures: NA; Response To Treatment: NA STG'S to be achieved in 2 weeks : 1. Pt will be instructed in HEP and demonstrate good understanding. -MET 2. Pt will achieve full cervical motion in all directions s pain. Not met, 100% ext soreness, 100% flexion no pain, 100% SB no pain, 100% rotation B no pain 3. Pt will improve MMT to 5/5 in B UE. - MET 4. Pt will improve mid and low trap MMT to 5/5. - MET LTG'S to be achieved in 4 weeks : 1. Pt will be compliant and I in HEP. - MET 2. Pt will be able to sleep, drive, ADL without deficits to return to PLOF. - MET Timed Minutes: 0 Untimed Minutes: 0 min Total Treatment Time: 0 Episode Reporting Period: 11/07/18 to 01/05/19 Number Of Visits: 10 visits out of 10 scheduled Foto Fs Change: Not reassessed Treatment Included: Therex for motion and strength of thoracic and cervical spine. Manual therapy for reduction of pain and spasm. Plan: Discontinue/ D/C skilled PT services to Home Exercise Prescription to be completed 1-2 times daily. A written handout was given. Pt demonstrated and verbalized understanding of Home Exercise Prescription. Thank you very much for this referral. Briana Mc, PT Exercise Flow Sheet Referring provider:No ref. provider found RTD: 01-05-18 Contraindications: n/a End POC date: 12-08-18 Onset date: chronic Insurance Information: [employer] Date: 11-07-18 11-13-18 11-17-18 11-21-18 11-27-18 12-04-18 12-16-18 12/29/18 12-31-18 01/05/19 Visit Type: foto daily daily daily foto recert recert daily foto 10th visit Visit Number: 1 2 3 4 5 6 7 8 9 10 Clinician: MTT MTT MTT MTT MTT MTT MTT LCW MTT LCW Therex Supine on 11/19 foam HEP Supine C/S retraction HEP S/L T/S stretch HEP Neuro Gait Theract Manual 15 min 30 min 20 min 30 min 23 min 30 min 20 min 24 min SCS 25 min SCS Modalities documented in this encounter Plan of Treatment Not on file documented as of this encounter Goals Goal Patient Goal Type Associated Problems Recent Progress Patient-Stated? Author Use sunscreen daily Lifestyle No Divya Cr, RN Frequent Skin Checks Lifestyle No Divya Cr, RN documented as of this encounter Visit Diagnoses Not on filedocumented in this encounter Care Teams Trade Union Official Relationship Specialty [place] [address] [place] [address] [address] [place] [address] PCP - General Podiatry 08/23/15 documented as of this encounter
--- OUTSIDE RECORDS SUMMARY | 2024-11-30 10:17 | XMS_ITS | Encounter Summary ---
Author Organization [employer] Address [address] [place] [address] Care Team Providers Care Item Repair Manager Name Role Phone Delonte Marin MD Primary Care Provider +1- [phone] Reason for Visit * Reason Onset Date Comments Neck Pain 08/20/2019 would like recom mendation on what to do Encounter Details Date Type Department Care Team ([facility] st Contact Info) Description 08/20/2019 Telephone [facility] Musculoskeletal [address] [place] [address] Itzel Snider, RN [address] [place] [address] Neck Pain (would like recommendation on what to do) Social History Tobacco Use Types Packs/Day Years [...] Miscellaneous Notes * Telephone Encounter - Francesca Deshpande RN - 08/21/2019 9:39 AM CDT Pt informed and vpu. SARAH RN * Telephone Encounter - Benny Johnston DO - 08/21/2019 8:07 AM CDT WE HAVE SEEN HER BEFORE, BUT SINCE SHE HAS GENERALLY NOT BEEN INTERESTED IN OPTIONS OFFERED, I WOULD RECOMMEND SHE START WITH HER PRIMARY CARE PHYSICIAN. DR. BAILEY IS A ELECTRICAL MACHINE BUILDER AND DOES NOT GENERALLY SEE PATIENTS FOR NECK PAIN. THANKS. BRIAN * Telephone Encounter - Itzel Snider RN - 08/20/2019 8:31 AM CDT Patient called the office in regards to some right sided neck pain that she has been having for thelast week or a little longer. She states that the pain sometimes radiates down her back and her earhas also been really bothering her. She stated that Dr. Kaylin Johnston had referred her to Dr. Bailey before and she wasn't sure who she should see regarding her pain she is having. She is just wanting a recommendation on what to do. I let her know that I would pass the information on to and give her a call back. Patient VPU. Please advise. Thank you. Itzel Snider RN documented in this encounter Plan of Treatment Not on file documented as of this encounter Goals Goal Patient Goal Type Associated Problems Recent Progress Patient-Stated? Author Use sunscreen daily Lifestyle No Divya Cr RN Frequent Skin Checks Lifestyle No Divya rC RN documented as of this encounter Visit Diagnoses Not on filedocumented in this encounter Care Teams Item Repair Manager Relationship Specialty Start Date End Date Delonte Marin MD [address] [facility] [address] [place] [address] PCP - General Podiatry 08/23/15 documented as of this encounter
--- OUTSIDE RECORDS SUMMARY | 2024-11-30 10:17 | XMS_ITS | Encounter Summary ---
Author Organization [employer] Address [address] [place] [address] Care Team Providers Care Certified Nuclear Medicine Technologist Name Role Phone Delonte Marin MD Primary Care Provider +1- [phone] Reason for Visit * Reason Onset Date Comments questions 12/02/2019 Encounter Details Date Type Department Care Team ([facility] st Contact Info) Description 12/02/2019 Telephone [facility] Neurosurgery [address] [place] [address] Rose Marie Katz MA [address] [place] [address] questions Social History Tobacco Use Types Packs/Day Years [...] Notes * Telephone Encounter - Rose Marie Katz MA - 12/02/2019 10:56 AM INKING MACHINE TENDER PC to patient Judy discussed that surgery mentioned in the office was an option and not 100%. Its is to be determined after the results of trial from the collar. Patient will call the office in two weeks to let us know how the trial went. I explained at that point Judy will determine if she needsto see her again or Dr Colby. She VPU--FRANCIS Hernandez CNP/daphne alcocer NG MACHINE TENDER * Telephone Encounter - Rose Marie Katz MA - 12/02/2019 10:54 AM INKING MACHINE TENDER ----- Message from Natalie Millan sent at 12/01/2019 12:21 PM INKING MACHINE TENDER ----- Regarding: surgery name Pt seen by Payam) as a REALTIME REPORTER on 11/30/19. Pt is calling wanting to know what the name of a proposed surgery that was discussed if conservative treatment did not help. Pt is aware Judy's dictation is not completed and may not be until tomorrow. [employer]/Neurosurgery Territory Manager NG MACHINE TENDER documented in this encounter Plan of Treatment [...] Total Score: 0 10/07/20 19 10:06 AM INKING MACHINE TENDER documented as of this encounter Care Teams Certified Nuclear Medicine Technologist Relationship Specialty Start Date End Date Delonte Marin MD [address] [facility] [address] [place] [address] PCP - General Podiatry 08/23/15 documented as of this encounter
--- OUTSIDE RECORDS SUMMARY | 2024-11-30 10:17 | XMS_ITS | Encounter Summary ---
Author Organization [employer] Address [address] [place] [address] Care Team Providers Care Data Management Analyst Name Role Phone Delonte Marin MD Primary Care Provider +1- [phone] Reason for Visit * Reason Onset Date Comments Telephone Call 08/14/2019 Encounter Details Date Type Department Care Team (Late st Contact Info) Description 08/14/[address] [place] [address] Jessica Welch, [address] [place] [address] Telephone Call Social History Tobacco [...] Miscellaneous Notes * Telephone Encounter - Jessica Keith, [facility] - 08/14/2019 11:13 AM CDT Called pt explained she was not seen for these symptoms the other day she was only seen for a sore throat so would need to come in and be seen. She expressed she already knew what was wrong with her that her sore throat always turns into a cold and how ridiculous it is she needs to come in just to have DR tell her its a cold. Let her know what appointments were available, she said 130pm then proceeded to say she may be able to make it she has her daughter, just let pt know if she is unable to call office and let them know to cancel so she doesn't have a no show against her, PT VERBALLY UNDERSTOOD * Telephone Encounter - Jessica Keith CMA - 08/14/2019 11:12 AM CDT ----- Message from Lillian Valdez sent at 08/14/2019 10:56 AM CDT ----- Regarding: appointment Provider: REESE Roblero: appointment Patient returned a call to the clinic. She states she is refusing to schedule an appointment. She states she was seen last week. She knows what is wrong with her she has a sinus infection and we can easily just call in a prescription that does not need another appointment. Patient is asking for a return call and can be reached at [phone] documented in this encounter Plan of Treatment Not on file documented as of this encounter Goals Goal Patient Goal Type Associated Problems Recent Progress Patient-Stated? Author Use sunscreen daily Lifestyle No Divya Cr, RN Frequent Skin Checks Lifestyle No Divya Cr, RN documented as of this encounter Visit Diagnoses Not on filedocumented in this encounter Care Teams Data Management Analyst Relationship Specialty Start Date End Date Delonte Marin MD [address] [facility] [address] [place] [address] PCP - General Podiatry 08/23/15 documented as of this encounter
--- OUTSIDE RECORDS SUMMARY | 2024-11-30 10:17 | XMS_ITS | Encounter Summary ---
Author Organization [facility] Address [address] [place] [address] Care Team Providers Care Distribution Designer Name Role Phone Delonte Marin MD Primary Care Provider +1- [phone] Reason for Referral * Referral (Routine) - Closed Specialty Diagnoses / Procedures Referred By Tommie jara Referred To Contact Neurosurgery Diagnoses Chronic neck pain Shorty Fontanez MD Phone: tel: fax: Levy Colby MD Referral ID Status Reason Start Date Expiration Date V isits Requested Visits Authorized [id number] Closed Specialty Services Required 10/29/2019 10/28/2020 1 1 SPECIAL AGENT Reason for Visit * Reason Onset Date 10/29/2019 Encounter Details Date Type Department Care Team ([facility] st Contact Info) Description 10/29/2019 Telephone [facility] Rheumatology [address] [place] [address] Kira Patrick, RN [address] [place] [address] / Social History Tobacco Use Types Packs/Day Years [...] encounter Miscellaneous Notes * Telephone Encounter - Kira Patrick, RN - 10/29/2019 3:28 PM [employer] SPECIAL AGENT Pt has been seen in our office for a consult for neck pain. Celebrex was prescribed, but patient never started. She called requesting a referral to Dr. Colby. Ok per VO from Dr. Fontanez. SPECIAL AGENT documented in this encounter Plan of Treatment Scheduled Referrals Name Type Priority Associated Diagnoses Order Schedule Amb Ref to Neurosurgery Outpatient Referral Routine Chronic neck pain Ordered: 10/29/2019 documented as of this encounter Goals Goal Patient Goal Type Associated Problems Recent Progress Patient-Stated? Author Use sunscreen daily Lifestyle No Divya Cr RN Frequent Skin Checks Lifestyle No Divya Cr RN documented as of this encounter Visit Diagnoses Diagnosis Chronic neck pain- Primary Cervicalgia documented in this encounter Additional Health Concerns Assessment Noted Time PHQ-9 Depression Total Score: 0 10/07/20 19 10:06 AM FBI SPECIAL AGENT documented as of this encounter Care Teams Distribution Designer Relationship Specialty Start Date End Date Delonte Marin MD [address] [facility] [address] [place] [address] PCP - General Podiatry 08/23/15 documented as of this encounter
--- OUTSIDE RECORDS SUMMARY | 2024-11-30 10:17 | XMS_ITS | Encounter Summary ---
Author Organization [employer] Address [address] [place] [address] Care Team Providers Care Small Engine Technician Name Role Phone Delonte Marin MD Primary Care Provider +1- [phone] Reason for Visit * Reason Comments New Patient Headache Neck Pain * Referral (Routine) - Closed Specialty Diagnoses / Procedures Referred By Contac t Referred To Contact Neurosurgery Diagnoses Chronic neck pain Shorty Fontanez MD Phone: tel: fax: Levy Colby MD Referral ID Status Reason Start Date Expiration Date V isits Requested Visits Authorized [id number] Closed Specialty Services Required 10/29/2019 10/28/2020 1 1 Encounter Details Date Type Department Care Team (Latest Contact Info) Description 11/30/2019 1:30 PM RN CASE MGR Initial consult [facility] Neurosurgery [address] [place] [address] Shorty Fontanez MD [address] [place] [address] Tobias Caballero, RN HEMODIALYSIS [address] [place] [address] Neck pain (Primary Dx); Cervical spondylosis; Spinal stenosis in cervical region Social History Tobacco Use Types Packs/Day [...] Reading Time Taken Comments Blood Pressure 118/78 11/30/2019 1:49 PM RN CASE MGR Pulse 92 11/30/2019 1:49 PM RN CASE MGR Temperature - - Respiratory Rate - - Oxygen Saturation - - Inhaled Oxygen Concentration - - Weight 71.2 kg (157 lb) 11/30/2019 1:49 PM RN CASE MGR Height - - Body Mass Index 25.73 10/07/2019 10:07 AM RN CASE MGR documented in this encounter Progress Notes * Tobias Caballero, RN HEMODIALYSIS - 11/30/2019 1:30 PM CST CHIEF COMPLAINT: Neck pain, headaches PRIMARY PROVIDER: Delonte Marin MD REFERRING PROVIDER: Shorty Fontanez MD HISTORY OF PRESENT ILLNESS: Michelle is a 34 y.o. left handed female who has had neck pain for 2 years.Pain has gradually worsened over time. Pain will start neck and radiate into top of shoulders. Patient describes pain as aching, pins and needles, throbbing, deep, and dull. Pain is rated at 2 and atworst a 8. Patient has tried medications of Aleve, Fioricet, Nortriptyline, and Tylenol #3 without improvement. She reports that her balance is fine. She denies any falls or injuries. She reports frequent headaches that are occipitally and will radiate to the top of her head. Patient denies weakness. Patient has had physical therapy and career placement services counselor without any improvement. She reports her walking tolerance to be good. She denies any bowel or bladder dysfunction. Any activity that requiresthe movement of her shoulder and neck will aggravate her discomfort. ALLERGIES: No Known Allergies MEDICATIONS: Have been reviewed Patient does not take blood thinners. PAST MEDICAL HISTORY: has a past medical history of Acute sinusitis, Carpal tunnel syndrome, Gastroenteritis, Headache, Migraines, and Panic attack. FAMILY HISTORY: family history includes Celiac disease in her mother; Diabetes in her paternal grandfather and paternal grandmother; Migraines in her father. PAST INJURIES: Denies MVA, falls, or fractures. PAST SURGICAL HISTORY: 1. Carpal Tunnel bilateral 2. Left Bunionectomy SOCIAL HISTORY: lives with her and 2 kids HABITS: Denies smoking, alcohol, or street drug use. WORK HISTORY: She is not employed Review of Systems Constitutional: Positive for activity change. HENT: Positive for tinnitus. Musculoskeletal: Positive for neck pain and neck stiffness. Neurological: Positive for headaches. All other systems reviewed and are negative. PHYSICAL EXAM: VITAL SIGNS: BP 118/78 Pulse 92 Wt 71.2 kg (157 lb) BMI 25.73 kg/m?? GENERAL APPEARANCE: Patient is well developed, well nourished. Patient appears to be uncomfortable but in no acute distress. HEENT: Atraumatic, normocephalic.Eyes PERRLA. No discoloration of the conjunctiva. Neck is supple without lymphadenopathy. Trachea midline. HEART: regular rate and rhythm. LUNGS: Clear to auscultation. MUSCULOSKELETAL: Muscle bulk is normal. No atrophy noted. SKIN EXAM: No open lesions noted. No signs of dehydration noted. BACK: Cervical muscle spasms noted. No Lumbar muscle spasm noted. No spinous process tenderness noted. NEUROLOGICAL EXAM: Mental status: Patient is alert and oriented to time, person and place. Recent and remote memory are normal. Attention, language, speech, and fund of knowledge are intact. Cranial Nerves: III, IV, : Pupils equally round and reactive to light. Extraocular moments intact. No ptosis. V: Facial sensation intact. VII: No facial asymmetry. VIII:Hearing intact. IX-X: Phonation intact. XI: Shoulder shrug symmetric. XII: Tongue midline. COORDINATION: Finger to nose is done appropriately. GAIT: Gait is normal. Tandem gait is normal SENSORY EXAM: Sensory exam in root and cord pattern in face, trunk, arms, and legs is completely normal. Position and vibration senses are intact. Romberg is physiologic. MOTOR EXAM: Detailed motor exam of upper and lower extremities was performed. deltoid biceps triceps baker bread iliopsoas intrinisics quads EHL Ant tibs Post tibs right 5 5 5 5 5 5 5 5 5 5 left 5 5 5 5 5 5 5 5 5 5 DEEP TENDON REFLEX: Biceps, Triceps, knees are 2+ and symmetric. Toes are downgoing. There is no clonus. There are no pectoral or finger flexor reflexes. DIAGNOSTIC STUDIES: Cervical MRI completed on 02/11/2019 at [facility] shows multilevel cervical spondylosis with moderate left neuroforaminal stenosis at C4-5. Cervical flexion-extension to have been obtained. Dr. Colby to review. ASSESSMENT: 1. Neck pain 2. Cervical spondylosis 3. Cervical stenosis PLAN: I have reviewed with the patient their physical findings, as well as her MRI studies. Based on patient's cervical flexion-extension films, patiently placed in a hard collar for diagnostic and hopefully therapeutic purposes. Patient will wear a collar while she is up and moving. Patient is back to driving collar. Patient does not need to sleep in collar unless it makes her more comfortable. Patient will follow-up in 3 to 4 weeks for reevaluation. All questions have been answered and patient verbalizes understanding. CASE MGR * Levy Colby MD - 11/30/2019 1:30 PM CST I was the collaborating physicians for this encounter. Levy Colby MD CASE MGR * Levy Colby MD - 11/30/2019 1:30 PM CST I was the collaborating physicians for this encounter. Levy Colby MD CASE MGR documented in this encounter Plan of Treatment Not on file documented as of this encounter Goals Goal Patient Goal Type Associated Problems Recent Progress Patient-Stated? Author Use sunscreen daily Lifestyle No Divya Cr RN Frequent Skin Checks Lifestyle No Divya Cr RN documented as of this encounter Results * XR Cervical Spine 3 Views or Less (11/30/2019 2:19 PM RN CASE MGR) Anatomical Region Laterality Modality C-spine, T-spine, Neck Radiograp hic Imaging 11/30/2019 2:19 PM RN CASE MGR Narrative 12/01/2019 1:16 [place] [address] DIAGNOSTIC IMAGING Name: MICHELLE GOMEZ ? Ordering Phys: TOBIAS CABALLERO Age: 34 ?Date of : 1985 ? Accession Number: [id number] Date of Service:11/30/2019 ?? Gender: F EXAM DESCRIPTION: ??Lateral cervical spine two view REASON FOR STUDY: ??Neck pain with numbness both arms 2 month duration TECHNIQUE: ??Lateral flexion and extension radiographic views acquired of the cervical spine. COMPARISON: ??None FINDINGS: ??There is preservation of disc spacing. ??Mineralization normal. ??No abnormal motion with flexion and extension is appreciated. ??Prevertebral soft tissues are normal. IMPRESSION: ??Normal flexion and extension lateral cervical spine THIS IS AN ELECTRONICALLY VERIFIED FINAL REPORT 12/01/2019 1:13 PM - Electronically signed by Gera Meier M.D. DA: DA D: ??12/01/2019 1:13 PM T: ??12/01/2019 1:13 PM Report ID: [id number] Reading Location: ??[id number] Procedure Note Gera Meier MD - 12/01/2019 [place] [address] DIAGNOSTIC IMAGING Name: MICHELLE GOMEZ Ordering Phys: TOBIAS GALLOSYMONE Age: 34 Date of : 1985 Accession Number: [id number] Date of Service:11/30/2019 Gender: F EXAM DESCRIPTION: Lateral cervical spine two view REASON FOR STUDY: Neck pain with numbness both arms 2 month duration TECHNIQUE: Lateral flexion and extension radiographic views acquired of the cervical spine. COMPARISON: None FINDINGS: There is preservation of disc spacing. Mineralization normal. No abnormal motion with flexion and extension is appreciated. Prevertebral soft tissues are normal. IMPRESSION: Normal flexion and extension lateral cervical spine THIS IS AN ELECTRONICALLY VERIFIED FINAL REPORT 12/01/2019 1:13 PM - Electronically signed by Gera Meier M.D. DA: DA Report ID: [id number] Reading Location: [id number] us Tobias Gallosymone RN HEMODIALYSIS IMG DIAGNOSTIC IMAGING ORDERAB LES Final Result documented in this encounter Visit Diagnoses Diagnosis Neck pain- Primary Cervicalgia Cervical spondylosis Cervical spondylosis without myelopathy Spinal stenosis in cervical region Neck pain Cervicalgia Cervical spondylosis Cervical spondylosis without myelopathy documented in this encounter Additional Health Concerns Assessment Noted Time PHQ-9 Depression Total Score: 0 10/07/20 19 10:06 AM RN CASE MGR documented as of this encounter Care Teams Small Engine Technician Relationship Specialty Start Date End Date Delonte Marin MD [address] [facility] [address] [place] [address] PCP - General Podiatry 08/23/15 documented as of this encounter
--- OUTSIDE RECORDS SUMMARY | 2024-11-30 10:17 | XMS_ITS | Encounter Summary ---
Author Organization [employer] Address [address] [place] [address] Care Team Providers Care Twisting Machine Operator Name Role Phone Delonte Marin MD Primary Care Provider +1- [phone] Reason for Visit * Reason Onset Date Comments pap results 09/03/2019 Encounter Details Date Type Department Care Team ([facility] st Contact Info) Description 09/03/2019 Telephone [facility] [address] [place] [address] Octavia Carrizales [facility] [address] [place] [address] pap results Social History Tobacco Use Types Packs/Day [...] encounter Miscellaneous Notes * Telephone Encounter - Octavia Carrizales CMA - 09/03/2019 9:07 AM CDT Called and spoke to the patient about her pap results. She voiced understanding without any questions or concerns * Telephone Encounter - Octavia Carrizales CMA - 09/03/2019 9:06 AM CDT ----- Message from Chloe Benson CNM sent at 09/01/2019 4:06 PM CDT ----- HPV high risk negative. Pap is pending documented in this encounter Plan of Treatment Not on file documented as of this encounter Goals Goal Patient Goal Type Associated Problems Recent Progress Patient-Stated? Author Use sunscreen daily Lifestyle No Divya Cr, RN Frequent Skin Checks Lifestyle No Divya Cr RN documented as of this encounter Visit Diagnoses Not on filedocumented in this encounter Care Teams Twisting Machine Operator Relationship Specialty [place] [address] [place] [address] [address] [place] [address] PCP - General Podiatry 08/23/15 documented as of this encounter
--- OUTSIDE RECORDS SUMMARY | 2024-11-30 10:17 | XMS_ITS | Encounter Summary ---
Author Organization [employer] Address [address] [place] [address] Care Team Providers Care Lab Courier Name Role Phone Delonte Marin MD Primary Care Provider +1- [phone] Reason for Visit * Reason Comments Neck Pain Encounter Details Date Type Department Care Team (Latest Contact Info) Description 11/30/2019 2:30 PM EVENTS ASSISTANT Clinical Support [facility] [address] [place] [address] Tobias Caballero, COOLER TENDER [address] [place] [address] Kiana Lee, RTR [address] [place] [address] Neck pain; Cervical spondylosis Social History Tobacco Use [...] CERVICAL SPINE 3 VIEWS OR LESS Routine 11/30/2019 2:19 PM EVENTS ASSISTANT Neck pain Cervical spondylosis documented in this encounter Results * XR Cervical Spine 3 Views or Less (11/30/2019 2:19 PM EVENTS ASSISTANT) Anatomical Region Laterality Modality C-spine, T-spine, Neck Radiograp hic Imaging 11/30/2019 2:19 PM EVENTS ASSISTANT Narrative 12/01/2019 1:16 [place] [address] DIAGNOSTIC IMAGING Name: MICHELLE GOMEZ ? Ordering Phys: TOBIAS CABALLERO Age: 34 ?Date of : 1985 ? Accession Number: [id number] Date of Service:11/30/2019 ?? Gender: F EXAM [...] PM T: ??12/01/2019 1:13 PM Report ID: [id number] Reading Location: ??[id number] Procedure Note Gera Meier MD - 12/01/2019 [place] [address] DIAGNOSTIC IMAGING Name: MICHELLE GOMEZ Fabi Ordering Phys: TOBIAS CABALLERO Age: 34 Date of : 1985 Accession Number: [id number] Date of Service:11/30/2019 Gender: F EXAM DESCRIPTION: [...] Electronically signed by Gera Meier M.D. DA: FRED Report ID: [id number] Reading Location: [place] [address] Tobias Caballero NP IMG DIAGNOSTIC IMAGING ORDERAB LES Final Result documented in this encounter Visit Diagnoses Diagnosis Neck pain Cervicalgia Cervical spondylosis Cervical spondylosis without myelopathy documented in this encounter Additional Health Concerns Assessment Noted Time PHQ-9 Depression Total Score: 0 10/07/20 19 10:06 AM EVENTS ASSISTANT documented as of this encounter Care Teams Lab Courier Relationship Specialty Start Date End Date Delonte Marin MD [address] [facility] [address] [place] [address] PCP - General Podiatry 08/23/15 documented as of this encounter
--- OUTSIDE RECORDS SUMMARY | 2024-11-30 10:17 | XMS_ITS | Encounter Summary ---
Author Organization [employer] Address [address] [place] [address] Care Team Providers Care Adjunct Trainer Name Role Phone Delonte Fenton MD Primary Care Provider +1- [phone] Encounter Details Date Type Department Care Team (Latest Contact Info) Description 08/27/2019 1:15 PM CDT - 08/27/2019 11:59 PM CDT Hospital Encounter [facility] [address] [place] [id number] Encounter for well woman exam with routine [...] this encounter Medications at Time of Discharge butalbital-acetam inophen-caffeine (FIORICET, ESGIC) 50-325-40 MG per tabletIndications :Migraine without status migrainosus, not intractable, unspecified migraine type TAKE 1 TABLET BY MOUTH EVERY 4 HOURS NEEDED FOR PAIN. MUST LAST ONE MONTH 15 tablet 03/02/2019 0 celecoxib (CELEBREX) 200 MG capsule Take 1 capsule by mouth daily. 30 capsule 11 07/07/2019 0 ELDERBERRY PO Take by mouth. 02 0 ibuprofen (ADVIL) 200 MG CAPS Take 400 mg by mouth every 8 (eight) hours as needed. 0 magnesium 200 MG TABS tablet Take 1 (one) tablet by mouth daily. 4 nortriptyline (PAMELOR) 10 MG capsuleIndication s:Chronic migraine without aura without status migrainosus, not intractable Take 6 capsules by mouth nightly. 180 capsule 5 06/30/2019 0 SUMAtriptan succinate (IMITREX) 100 MG tabletIndications :Migraine without status migrainosus, not intractable, unspecified migraine type Take 1 tablet by mouth as needed for Migraine. MAX 2 per day. 9 tablet 3 06/25/2019 0 documented as of this encounter Progress Notes * Chloe Núñez CNM - 08/27/2019 1:15 PM CDT HPV high risk negative. Pap is pending [...] Priority Date/Time Associated Diagnosis Comments LIQUID-BASED PAP SMEAR Routine 08/27/2019 1:15 PM CDT HPV HIGH RISK SCREEN BY PCR Routine 08/27/2019 1:15 PM CDT documented in this encounter Results * HPV High Risk Screen by PCR (08/27/2019 1:15 PM CDT) HPV Type 16 NEG NEG 09/01/2019 2:57 PM CDT [employer] [facility] HPV Type 18 NEG NEG 09/01/2019 2:57 PM CDT [employer] [facility] HPV High Risk Screen NEG NEG 09/01/2019 2:57 PM CDT [employer] [facility] Comment: ---- The Darren Chucho HPV Genotype [...] established for HPV vaccinated individuals. Specimen Type PCYT 08/31/2019 11:23 AM CDT [employer] [facility] Comment:Performed at [facility] [employer], [address] [place] [address], [phone], unless otherwise noted. Serum specimen (specimen) 08/27/2019 1:15 PM CDT 08/31/2019 11:23 AM CDT Chloe Núñez [facility] MICROBIOLOGY - GENERAL ORD ERABLES Final Result [facility] [employer] [facility] [address] [facility] [place] [address] [place] [address] * Liquid Based Pap Smear (08/27/2019 1:15 PM CDT) 08/27/2019 1:15 PM CDT 08/28/2019 Narrative [facility] [employer] PATH LAB - 09/02/2019 2:56 PM CDT CASE: [id number] PATIENT: MICHELLE GOMEZ Patient: MICHELLE GOMEZ ?Location: Age: 34 ?Birthdate: 1985 ?Sex: F Submitted By: CHLOE NÚÑEZ Copies To: KATRIN ??[facility] DELONTE FENTON MD Gynecological Cytology Date Collected: 08/27/2019 1:15:00 PM ?LMP:08/13/19 Specimen Source:Vaginal; Cervical Date Received: 08/28/2019 ?Clinical Information:Last Normal Pap: Within last 5 years Reason for Pap Smear:Screening Pap Smear SPECIMEN [...] results Technical and diagnostic services performed at [address] [address] Final Diagnosis performed by Addis Bell Electronically signed 09/02/2019 2:38:58PM us Chloe Núñez [facility] PATHOLOGY/CYTOLOGY ORDERAB LES Final Result [facility] PATH LAB [place], [place] documented in this encounter Visit Diagnoses Diagnosis Encounter for well woman exam with routine gynecological exam documented in this encounter Care Teams Adjunct Trainer Relationship Specialty Start Date End Date Delonte Fenton MD [address] [facility] [address] [place] [address] PCP - General Podiatry 08/23/15 documented as of this encounter
--- OUTSIDE RECORDS SUMMARY | 2024-11-30 10:17 | XMS_ITS | Encounter Summary ---
Author Organization [employer] [facility] Address [address] [place] [address] Care Team Providers Care Layer Out Plate Glass Name Role Phone Delonte Marin MD Primary Care Provider +1- [phone] Reason for Visit * Reason Onset Date Comments Telephone Call 08/14/2019 Encounter Details Date Type Department Care Team (Late st Contact Info) Description 08/14/[address] [place] [address] Jessica Welch [address] [place] [address] Telephone Call Social History Tobacco [...] Encounter - Jessica Keith CMA - 08/14/2019 3:30 PM CDT New script sent over to [facility] in [place] * Telephone Encounter - Jessica Keith CMA - 08/14/2019 3:30 PM CDT ----- Message from Brittni Denton sent at 08/14/2019 3:10 PM CDT ----- Regarding: change in antibiotic Contact: Michelle Provider: Osbaldo, Patient called stating that the Augmentin is tough on her stomach. She's wondering if another antibiotic could be sent in. If another one is able to be sent in she requests it be sent to [facility] in [place]. If you have anymore questions she can be reached at [phone]. documented in this encounter Plan of Treatment Not on file documented as of this encounter Goals Goal Patient Goal Type Associated Problems Recent Progress Patient-Stated? Author Use sunscreen daily Lifestyle No Divya Cr, RN Frequent Skin Checks Lifestyle No Divya Cr, RN documented as of this encounter Visit Diagnoses Not on filedocumented in this encounter Care Teams Layer Out Plate Glass Relationship Specialty Start Date End Date Delonte Marin MD [address] [facility] [address] [place] [address] PCP - General Podiatry 08/23/15 documented as of this encounter
--- OUTSIDE RECORDS SUMMARY | 2024-11-30 10:17 | XMS_ITS | Encounter Summary ---
Author Organization [facility] Address [address] [place] [address] Care Team Providers Care Milk Powder Grinder Name Role Phone Delonte Marin MD Primary Care Provider [phone]- [phone] Reason for Visit * Reason Comments Sinusitis sinus pressure, Encounter Details Date Type Department Care Team ([facility] st Contact Info) Description 08/14/2019 1:30 PM CDT Office Visit [address] [place] [address] Heide Roblero MD [address] [place] [address] [address] [place] [address] Acute non-recurrent maxillary sinusitis (Primary Dx) Social [...] Reading Time Taken Comments Blood Pressure 128/80 08/14/2019 1:48 PM CDT Pulse 111 08/14/2019 1:48 PM CDT Temperature 36.7 ??C (98 ??F) 08/14/2019 1:48 PM CDT Respiratory Rate 18 08/14/2019 1:48 PM CDT Oxygen Saturation 99% 08/14/2019 1:48 PM CDT Inhaled Oxygen Concentration - - Weight 72.2 kg (159 lb 4 oz) 08/14/2019 1:48 PM CDT Height 167.6 cm (5' 6 ) 08/14/2019 1:48 PM CDT Body Mass Index 25.7 08/14/2019 1:48 PM CDT documented in this encounter Patient Instructions * Patient Instructions* Heide Roblero MD - 08/14/2019 1:30 PM CDT Images from the original note [...] for yourself at home? ?? Take an xkga-zzu-hldpkrw pain medicine, such as acetaminophen (Tylenol), ibuprofen (Advil, Motrin), or naproxen (Aleve). Read and follow all instructions on the label. ?? If the doctor prescribed antibiotics, take them as directed. Do not stop taking them just because you feel better. You need to take the full course of antibiotics. ?? Be careful when taking bhip-aec-ccfotxq cold or flu medicines and Tylenol at [...] option found under the Resources tab in [employer] [email or web address] If you do not have access to [employer], you can visit [email or web address] and select Consulted from the menu on the left. Enter I933 in the searchbox to learn more about Sinusitis: Care Instructions. Not on [employer]? Go to [email or web address] and click the Sign Up Now linkto request an activation code. Current as of: September 07, 2018 Content Version: 12.1 ?? 0010-4012 Tiltap. Care instructions adapted under license by your healthcare professional. This care instruction is for use with your licensed healthcare professional. If you have questions about a medical condition or this instruction, always ask your healthcare professional. [facility] foundationPlayMobs, [employer] disclaims any warranty or liability for your use of this information. documented in this encounter Progress Notes * Heide Roblero MD - 08/14/2019 1:30 PM CDT [facility] [address] [facility] [address] [facility] [address] Dept: [phone] Dept Loc: [phone] Loc Date: 08/14/2019 Name: Michelle Gomez : 1985 PCP: Delonte Marin MD Subjective: Patient ID: Michelle Gomez is a 34 y.o. female. History provided by: Patient historic interpreter used: No Sinusitis This is a new problem. The current episode started in the past 7 days. The problem has been gradually worsening since onset. There has been no fever. Her pain is at a severity of 6/10. The pain is moderate. Associated symptoms include congestion, headaches, sinus pressure and swollen glands. Pertinent negatives include no chills, ear pain, shortness of breath, sneezing or sore throat. Past treatments include acetaminophen. The treatment provided mild relief. Patient's medications, allergies, past medical, surgical, social and family histories were reviewedand updated as appropriate. Review of Systems Constitutional: Negative for chills, fatigue and fever. HENT: Positive for congestion, rhinorrhea, sinus pressure and sinus pain. Negative for ear discharge, ear pain, facial swelling, sneezing, sore throat and tinnitus. Eyes: Negative. Respiratory: Negative for shortness of breath. Cardiovascular: Negative for chest pain. Gastrointestinal: Negative for abdominal pain, diarrhea, nausea and vomiting. Musculoskeletal: Negative for arthralgias, joint swelling and neck stiffness. Skin: Negative for rash. Neurological: Positive for headaches. Negative for dizziness and light-headedness. Objective: Blood pressure 128/80, pulse 111, temperature 36.7 ??C (98 ??F), resp. rate 18, height 1.676 m (5' 6 ), weight 72.2 kg (159 lb 4 oz), SpO2 99 %., BMI Body mass index is 25.7 kg/m??. Physical Exam Vitals signs and nursing note reviewed. Constitutional: General: She is not in acute distress. Appearance: Normal appearance. She is well-developed. HENT: Head: Normocephalic and atraumatic. Right Ear: Tympanic membrane, ear canal and external ear normal. Left Ear: Tympanic membrane, ear canal and external ear normal. Nose: Congestion present. Comments: Tender frontal and maxillary sinuses with palpation Mouth/Throat: Mouth: Mucous membranes are moist. Pharynx: No oropharyngeal exudate or posterior oropharyngeal erythema. Eyes: Extraocular Movements: Extraocular movements intact. Conjunctiva/sclera: Conjunctivae normal. Pupils: Pupils are equal, round, and reactive to light. Neck: Musculoskeletal: Normal range of motion and neck supple. Cardiovascular: Rate and Rhythm: Normal rate and regular rhythm. Heart sounds: Normal heart sounds. Pulmonary: Effort: Pulmonary effort is normal. Breath sounds: Normal breath sounds. Lymphadenopathy: Cervical: No cervical adenopathy. Skin: Findings: No rash. Neurological: Mental Status: She is alert. Assessment/Plan: Acute sinusitis: Amoxicillin and flonase daily Nasal saline flushes/luis fernando pot Problem List Items Addressed This Visit None Visit Diagnoses Acute non-recurrent maxillary sinusitis - Primary Relevant Medications fluticasone NASAL (FLONASE) 50 MCG/ACT nasal spray amoxicillin (AMOXIL) 875 MG tablet Next Visit: Follow up if symptoms worsen or fail to improve. Encounter of: 08/14/2019 Signed: Heide Roblero MD 08/16/2019 4:18 PM documented in this encounter Plan of Treatment Not on file documented as of this encounter Goals Goal Patient Goal Type Associated Problems Recent Progress Patient-Stated? Author Use sunscreen daily Lifestyle No Divya Cr, RN Frequent Skin Checks Lifestyle No Divya Cr, RN documented as of this encounter Visit Diagnoses Diagnosis Acute non-recurrent maxillary sinusitis- Primary documented in this encounter Care Teams Milk Powder Grinder Relationship Specialty Start Date End Date Delonte Marin MD [address] [facility] [address] [place] [address] PCP - General Podiatry 08/23/15 documented as of this encounter
--- OUTSIDE RECORDS SUMMARY | 2024-11-30 10:18 | XMS_ITS | Encounter Summary ---
Author Organization [facility] Address [address] [place] [address] Care Team Providers Care Delphi Developer Name Role Phone Delonte Marin MD Primary Care Provider +1- [phone] Reason for Visit * Reason Comments Neck Pain Encounter Details Date Type Department Care Team ([facility] st Contact Info) Description 02/02/2019 8:55 AM CDT Clinical Support [facility] [address] [place] [address] Benny Johnston, DO [address] [place] [address] Fiona Paez, RTR [address] [place] [address] Neck pain Social History Tobacco Use Types Packs/Day Years Used Date Smoking Tobacco: Never Smokeless Tobacco: Never Alcohol Use Standard Drinks/Week Comments No 0 (1 standard drink = 0.6 oz pur e alcohol) Comments Unknown Sex and Gender Information Value [...] Name Priority Date/Time Associated Diagnosis Comments XR PELVIS 1 OR 2 VIEWS Routine 02/02/2019 8:52 AM CDT Neck pain XR LUMBOSACRAL SPINE 2 OR 3 VIEWS Routine 02/02/2019 8:52 AM CDT Neck pain XR THORACIC SPINE 2 VIEWS Routine 02/02/2019 8:52 AM CDT Neck pain documented in this encounter Results * XR Pelvis 1 or 2 Views (02/02/2019 8:52 AM CDT) Anatomical Region Laterality Modality Radiographic Nicole ging 02/02/2019 8:52 AM CDT Narrative 02/05/2019 8:[place] [address] DIAGNOSTIC IMAGING Name: MICHELLE GOMEZ ? Ordering Phys: BENNY JOHNSTON Age: 33 ?Date of : 1985 ? Accession Number: [id number] Date of Service:02/02/2019 ?? Gender: F EXAM DESCRIPTION: ??XR THORACIC SPINE 2 VIEWS; XR LUMBOSACRAL SPINE 2 OR 3 VIEWS; XR PELVIS 1 OR 2 VIEWS REASON FOR STUDY: ??neck pain POSTURAL TYPE B PT STATES CERVICAL PAIN FOR ABOUT ONE YEAR, NKI DENIES TECHNIQUE: ??AP and lateral radiographic views acquired of the thoracic spine, AP and lateral radiographic views acquired of the lumbar spine, and an AP projection radiographic view acquired of the pelvis. COMPARISON: ??None available FINDINGS: ??THORACIC AND LUMBAR SPINE: ALIGNMENT: Mild dextrocurvature of the thoracic vertebral bodies and levocurvature of the lumbar vertebral bodies. SEGMENTATION: Normal. ??No transitional anatomy. VERTEBRAE: Well-maintained height. ??Chronic appearing L5 spondylolysis with slight grade 1 anterolisthesis of L5 on S1. DISCS: Well-maintained disc heights. OTHER: No other significant finding. PELVIS: HIPS: No acute fracture or dislocation. ??No suspicious bone lesion. ??Joint spaces are maintained with no erosions or significant osteophytes. PELVIS AND SACRUM: No acute fracture or dislocation. No suspicious bone lesions. SOFT TISSUES: Unremarkable. OTHER: No other significant finding. IMPRESSION: 1.No acute osseous abnormality. 2.Chronic appearing L5 spondylolysis with grade 1 anterolisthesis. 3.Mild lateral curvature of the thoracic and lumbar spine. THIS IS AN ELECTRONICALLY VERIFIED FINAL REPORT 02/02/2019 9:45 AM - Electronically signed by Eduardo Bhandari M.D. JR: D: ??02/02/2019 9:45 AM T: ??02/02/2019 9:45 AM Report ID: [id number] Reading Location: ??[id number] Procedure Note Eduardo Bhandari MD - 02/05/2019 [place] [address] DIAGNOSTIC IMAGING Name: MICHELLE GOMEZ Ordering Phys: BENNY JOHNSTON Age: 33 Date of : 1985 Accession Number: [id number] Date of Service:02/02/2019 Gender: F EXAM DESCRIPTION: XR THORACIC SPINE 2 VIEWS; XR LUMBOSACRAL SPINE 2 OR 3 VIEWS; XR PELVIS 1 OR 2 VIEWS REASON FOR STUDY: neck pain POSTURAL TYPE B PT STATES CERVICAL PAIN FOR ABOUT ONE YEAR, NKI DENIES TECHNIQUE: AP and lateral radiographic views acquired of the thoracic spine, AP and lateral radiographic views acquired of the lumbar spine, and an AP projection radiographic view acquired of the pelvis. COMPARISON: None available FINDINGS: THORACIC AND LUMBAR SPINE: ALIGNMENT: Mild dextrocurvature of the thoracic vertebral bodies and levocurvature of the lumbar vertebral bodies. SEGMENTATION: Normal. No transitional anatomy. VERTEBRAE: Well-maintained height. Chronic appearing L5 spondylolysis with slight grade 1 anterolisthesis of L5 on S1. DISCS: Well-maintained disc heights. OTHER: No other significant finding. PELVIS: HIPS: No acute fracture or dislocation. No suspicious bone lesion. Joint spaces are maintained with no erosions or significant osteophytes. PELVIS AND SACRUM: No acute fracture or dislocation. No suspicious bone lesions. SOFT TISSUES: Unremarkable. OTHER: No other significant finding. IMPRESSION: 1.No acute osseous abnormality. 2.Chronic appearing L5 spondylolysis with grade 1 anterolisthesis. 3.Mild lateral curvature of the thoracic and lumbar spine. THIS IS AN ELECTRONICALLY VERIFIED FINAL REPORT 02/02/2019 9:45 AM - Electronically signed by Eduardo BurrellD. JR: Report ID: [id number] Reading Location: [place] [address] Benny Johnston DO IMG DIAGNOSTIC IMAGING ORDERA BLES Final Result * XR Thoracic Spine 2 Views (02/02/2019 8:52 AM CDT) Anatomical Region Laterality Modality C-spine, T-spine, L-spine, Chest Radiographic Imaging 02/02/2019 8:52 AM CDT Narrative 02/02/2019 9:48 [place] [address] DIAGNOSTIC IMAGING Name: MICHELLE GOMEZ ? Ordering Phys: BENNY JOHNSTON Age: 33 ?Date of : 1985 ? Accession Number: [id number] Date of Service:02/02/2019 ?? Gender: F EXAM DESCRIPTION: ??XR THORACIC SPINE 2 VIEWS; XR LUMBOSACRAL SPINE 2 OR 3 VIEWS; XR PELVIS 1 OR 2 VIEWS REASON FOR STUDY: ??neck pain POSTURAL TYPE B PT STATES CERVICAL PAIN FOR ABOUT ONE YEAR, NKI DENIES TECHNIQUE: ??AP and lateral radiographic views acquired of the thoracic spine, AP and lateral radiographic views acquired of the lumbar spine, and an AP projection radiographic view acquired of the pelvis. COMPARISON: ??None available FINDINGS: ??THORACIC AND LUMBAR SPINE: ALIGNMENT: Mild dextrocurvature of the thoracic vertebral bodies and levocurvature of the lumbar vertebral bodies. SEGMENTATION: Normal. ??No transitional anatomy. VERTEBRAE: Well-maintained height. ??Chronic appearing L5 spondylolysis with slight grade 1 anterolisthesis of L5 on S1. DISCS: Well-maintained disc heights. OTHER: No other significant finding. PELVIS: HIPS: No acute fracture or dislocation. ??No suspicious bone lesion. ??Joint spaces are maintained with no erosions or significant osteophytes. PELVIS AND SACRUM: No acute fracture or dislocation. No suspicious bone lesions. SOFT TISSUES: Unremarkable. OTHER: No other significant finding. IMPRESSION: 1.No acute osseous abnormality. 2.Chronic appearing L5 spondylolysis with grade 1 anterolisthesis. 3.Mild lateral curvature of the thoracic and lumbar spine. THIS IS AN ELECTRONICALLY VERIFIED FINAL REPORT 02/02/2019 9:45 AM - Electronically signed by Eduardo Bhandari M.D. JR: D: ??02/02/2019 9:45 AM T: ??02/02/2019 9:45 AM Report ID: [id number] Reading Location: ??[id number] Procedure Note Eduardo Bhandari MD - 02/02/2019 [place] [address] DIAGNOSTIC IMAGING Name: MICHELLE GOMEZ Ordering Phys: BENNY JOHNSTON Age: 33 Date of : 1985 Accession Number: [id number] Date of Service:02/02/2019 Gender: F EXAM DESCRIPTION: XR THORACIC SPINE 2 VIEWS; XR LUMBOSACRAL SPINE 2 OR 3 VIEWS; XR PELVIS 1 OR 2 VIEWS REASON FOR STUDY: neck pain POSTURAL TYPE B PT STATES CERVICAL PAIN FOR ABOUT ONE YEAR, NKI DENIES TECHNIQUE: AP and lateral radiographic views acquired of the thoracic spine, AP and lateral radiographic views acquired of the lumbar spine, and an AP projection radiographic view acquired of the pelvis. COMPARISON: None available FINDINGS: THORACIC AND LUMBAR SPINE: ALIGNMENT: Mild dextrocurvature of the thoracic vertebral bodies and levocurvature of the lumbar vertebral bodies. SEGMENTATION: Normal. No transitional anatomy. VERTEBRAE: Well-maintained height. Chronic appearing L5 spondylolysis with slight grade 1 anterolisthesis of L5 on S1. DISCS: Well-maintained disc heights. OTHER: No other significant finding. PELVIS: HIPS: No acute fracture or dislocation. No suspicious bone lesion. Joint spaces are maintained with no erosions or significant osteophytes. PELVIS AND SACRUM: No acute fracture or dislocation. No suspicious bone lesions. SOFT TISSUES: Unremarkable. OTHER: No other significant finding. IMPRESSION: 1.No acute osseous abnormality. 2.Chronic appearing L5 spondylolysis with grade 1 anterolisthesis. 3.Mild lateral curvature of the thoracic and lumbar spine. THIS IS AN ELECTRONICALLY VERIFIED FINAL REPORT 02/02/2019 9:45 AM - Electronically signed by Eduardo Blackburn.D. JR: Report ID: [id number] Reading Location: [place] [address] Benny Johnston DO IMG DIAGNOSTIC IMAGING ORDERA BLES Final Result * XR Lumbosacral Spine 2 or 3 Views (02/02/2019 8:52 AM CDT) Anatomical Region Laterality Modality T-spine, L-spine, Pelvis Radiogr aphic Imaging 02/02/2019 8:52 AM CDT Narrative 02/05/2019 8:14 AM CDT [place] [address] DIAGNOSTIC IMAGING Name: GOMEZMICHELLE WEAVER ? Ordering Phys: BENNY JOHNSTON Age: 33 ?Date of : 1985 ? Accession Number: [id number] Date of Service:02/02/2019 ?? Gender: F EXAM DESCRIPTION: ??XR THORACIC SPINE 2 VIEWS; XR LUMBOSACRAL SPINE 2 OR 3 VIEWS; XR PELVIS 1 OR 2 VIEWS REASON FOR STUDY: ??neck pain POSTURAL TYPE B PT STATES CERVICAL PAIN FOR ABOUT ONE YEAR, NKI DENIES TECHNIQUE: ??AP and lateral radiographic views acquired of the thoracic spine, AP and lateral radiographic views acquired of the lumbar spine, and an AP projection radiographic view acquired of the pelvis. COMPARISON: ??None available FINDINGS: ??THORACIC AND LUMBAR SPINE: ALIGNMENT: Mild dextrocurvature of the thoracic vertebral bodies and levocurvature of the lumbar vertebral bodies. SEGMENTATION: Normal. ??No transitional anatomy. VERTEBRAE: Well-maintained height. ??Chronic appearing L5 spondylolysis with slight grade 1 anterolisthesis of L5 on S1. DISCS: Well-maintained disc heights. OTHER: No other significant finding. PELVIS: HIPS: No acute fracture or dislocation. ??No suspicious bone lesion. ??Joint spaces are maintained with no erosions or significant osteophytes. PELVIS AND SACRUM: No acute fracture or dislocation. No suspicious bone lesions. SOFT TISSUES: Unremarkable. OTHER: No other significant finding. IMPRESSION: 1.No acute osseous abnormality. 2.Chronic appearing L5 spondylolysis with grade 1 anterolisthesis. 3.Mild lateral curvature of the thoracic and lumbar spine. THIS IS AN ELECTRONICALLY VERIFIED FINAL REPORT 02/02/2019 9:45 AM - Electronically signed by Eduardo Bhandari M.D. JR: D: ??02/02/2019 9:45 AM T: ??02/02/2019 9:45 AM Report ID: [id number] Reading Location: ??[id number] Procedure Note Eduardo Bhandari MD - 02/05/2019 [place] [address] DIAGNOSTIC IMAGING Name: MICHELLE GOMEZ Ordering Phys: BENNY JOHNSTON Age: 33 Date of : 1985 Accession Number: [id number] Date of Service:02/02/2019 Gender: F EXAM DESCRIPTION: XR THORACIC SPINE 2 VIEWS; XR LUMBOSACRAL SPINE 2 OR 3 VIEWS; XR PELVIS 1 OR 2 VIEWS REASON FOR STUDY: neck pain POSTURAL TYPE B PT STATES CERVICAL PAIN FOR ABOUT ONE YEAR, NKI DENIES TECHNIQUE: AP and lateral radiographic views acquired of the thoracic spine, AP and lateral radiographic views acquired of the lumbar spine, and an AP projection radiographic view acquired of the pelvis. COMPARISON: None available FINDINGS: THORACIC AND LUMBAR SPINE: ALIGNMENT: Mild dextrocurvature of the thoracic vertebral bodies and levocurvature of the lumbar vertebral bodies. SEGMENTATION: Normal. No transitional anatomy. VERTEBRAE: Well-maintained height. Chronic appearing L5 spondylolysis with slight grade 1 anterolisthesis of L5 on S1. DISCS: Well-maintained disc heights. OTHER: No other significant finding. PELVIS: HIPS: No acute fracture or dislocation. No suspicious bone lesion. Joint spaces are maintained with no erosions or significant osteophytes. PELVIS AND SACRUM: No acute fracture or dislocation. No suspicious bone lesions. SOFT TISSUES: Unremarkable. OTHER: No other significant finding. IMPRESSION: 1.No acute osseous abnormality. 2.Chronic appearing L5 spondylolysis with grade 1 anterolisthesis. 3.Mild lateral curvature of the thoracic and lumbar spine. THIS IS AN ELECTRONICALLY VERIFIED FINAL REPORT 02/02/2019 9:45 AM - Electronically signed by Eduardo Bhandari M.D. JR: Report ID: [id number] Reading Location: [id number] Benny Johnston DO IMG DIAGNOSTIC IMAGING ORDERA BLES Final Result documented in this encounter Visit Diagnoses Diagnosis Neck pain Cervicalgia documented in this encounter Care Teams Delphi Developer Relationship Specialty Start Date End Date Delonte Marin MD [address] [facility] [address] [place] [address] PCP - General Podiatry 08/23/15 documented as of this encounter
--- OUTSIDE RECORDS SUMMARY | 2024-11-30 10:18 | XMS_ITS | Encounter Summary ---
Author Organization [facility] Address [address] [place] [address] Care Team Providers Care Analyst Market Intelligence Name Role Phone Delonte Marin MD Primary Care Provider +1- [phone] Reason for Referral * MRI/CAT Scan (Routine) - Closed Specialty Diagnoses / Procedures Referred By Contdevyn t Referred To Contact Radiology Diagnoses Chronic nonintractable headache, unspecified headache type Neck pain Procedures MRI Cervical Spine wo Contrast Benny Johnston DO [address] [place] [address] Phone: tel: fax: Referral ID Status Reason Start Date Expiration Date Visits Re quested Visits Authorized [id number] Closed 02/06/2019 02/06/2020 1 1 Encounter Details Date Type Department Care Team (Latest Contact Info) Description 02/06/2019 9:00 AM CDT Office Visit [facility] [address] [place] [phone] Benny Johnston DO [address] [place] [phone] Chronic nonintractable headache, unspecified headache type (Primary Dx); Neck pain; Leg length discrepancy; Somatic dysfunction of spine, cervical Social History Tobacco Use Types Packs/Day Years [...] Sign Reading Time Taken Comments Blood Pressure 116/76 02/06/2019 9:09 AM CDT Pulse - - Temperature - - Respiratory Rate - - Oxygen Saturation - - Inhaled Oxygen Concentration - - Weight 70.3 kg (155 lb) 02/06/2019 9:09 AM CDT v erbal Height - - Body Mass Index 25.02 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 The neck pain started over one year ago. No known cause. History of headaches for a long time, but believes at this point the are stemming form the neck pain. Neck pain greater high up on the left. Headaches come up over the back of the nhead. She has seen Dr. Muhammad and Dr. Farfan regarding these issues. Is currently on Nortriptyline 60mg by mouth nightly for these headaches. Uses imitrex, advil, & fioricet as needed for pain. MRI of brain this past fall. Xrays of cervical spine. She is a stay at home and has been for over 4 years. Has tried PT & feels as if it made her painworse. Has gone to the chiropractor & had massages with no relief. Exercise, heavy lifting, yoga/massage, & PT make her pain worse. Also sometimes worse at the beginning of the cycle and sometimes just worse at other phases of her menstrual cycle. Some foods also make her worse such as chocolate and lunch meats. She has tried a number of diet substitutions. Headaches associated with discontinuing Merina. Ice and ibuprofen help. Her pain ranges from a 2-8 on the pain scale. She is unableto exercise as it makes her pain worse. She is able to conduct her activities of daily living. Patient was diagnosed with carpal tunnel syndrome in 2014 and has had bilateral surgery. No current symptoms. Review of systems: HEENT: As stated above in history of present illness Respiratory: Dry mouth Cardiovascular: Negative GI: Negative : Negative Reproductive system: Negative Nervous system: Anxious, fatigue, difficulty sleeping Musculoskeletal: As stated above in history of present illness Endocrine: Negative Rheumatologic/miscellaneous: Negative HEEL CEMENTER history: Date of last menstrual period 01/23/19. Patient has had 2 pregnancies. No complications. She did not have back pain in . Hormonal survey: She checks some positives regarding thyroid and progesterone and several regardingtestosterone and estrogen. Sleep questionnaire: She checks a couple of positives. The new patient form will be scanned and included as part of the medical record. Physical exam: Patient is alert and oriented with good affect and in no acute distress today. There is no tenderness to palpation along the suboccipital musculature. No neck pain with cervical side bending or rotation. There is lower cervical pain with extension. There is tenderness to palpation along the cervical spine at the C2- C3 level on the left. No tenderness to palpation along the thoracic spine. Mild upper trapezius tightness. Bilateral shoulder exam reveals some very mild crepitance at the glenohumeral joint. There is no tenderness to palpation along the lumbar spine. No tenderness at the iliolumbar ligament attachment along the ilium. No tenderness at the gluteus medius attachments along the ilium. No tenderness along the SI joint bilaterally. No ASIS tender points present. Posterior compression test for hip and SI joint negative bilaterally. AARON test negative bilaterally. No restriction in internal or external rotation of the lower extremities. Postural x-ray report of 02/02/19: Mild dextrocurvature of thoracic spine and levocurvature of the lumbar spine. Chronic appearing L5 spondylolysis with grade 1 anterolisthesis. Femoral head inequality -10 mm on the left. Sacral base inequality -24 mm on the left. Lumbosacral angle equals 31 degrees. Cervical x-ray report of 08/19/18: Straightening of the normal cervical lordosis with grade 1 anterior listhesis of C3 on C4. Mild laxity at C3-C4. MRI report brain without contrast of 10/13/18: No focal abnormalities. Assessment: 1. Chronic neck pain primarily left-sided 2. Chronic headaches 3. Possible hormone imbalance 4. Left short leg 5. Somatic dysfunction of the cervical spine Plan: I discussed findings and options with the patient today. Given her continued pain despite physical therapy and medication, I would like to set her up for MRI of the cervical spine with particular attention to the C2- C3 levels on the left, looking at nerve root, ligament, muscle, and facet joints. We will also start her on a 3 mm heel lift on the left increasing to 5 mm in 2 weeks as tolerated. I would also like to get some labs for her regarding possible hormone imbalance as well as inflammatory markers and celiac panel. We will follow-up after labs and MRI. She will call if she has any increase in pain or symptoms prior to her next scheduled visit. Patient understands and is in agreement with plan. * Zora Cadet RN - 02/06/2019 9:00 AM CDT DME DISTRIBUTION: Equipment Given [facility] Imaging Engineer Item [employer]ley Quantity [id number] [employer] Heel Lift 3mm & 5mm $6.00 2 Frequency of Use: Daily / Per physician's orders. 1. I have received training on the safe use, setup, and protocol parameters of the above equipment and feel confident with its use. 2. I acknowledge receipt of the item(s) listed above. Patient Signature: Date:02/06/19 Delivery Address: [address] [place] [address] documented in this encounter Plan of Treatment Not on file documented as of this encounter Goals Goal Patient Goal Type Associated Problems Recent Progress Patient-Stated? Author Use sunscreen daily Lifestyle No Divya Cr, RN Frequent Skin Checks Lifestyle No Divya Cr RN documented as of this encounter Results * MRI Cervical Spine wo Contrast (02/11/2019 8:08 AM CDT) Anatomical Region Laterality Modality C-spine, T-spine, Neck Magnetic Resonance 02/11/2019 8:08 AM CDT Narrative 02/11/2019 11:41 [place] [address] DIAGNOSTIC IMAGING Name: MICHELLE GOMEZ ? Ordering Phys: BENNY JOHNSTON Age: 33 ?Date of : 1985 ? Accession Number: [id number] Date of Service:02/11/2019 ?? Gender: F EXAM DESCRIPTION: ??MRI CERVICAL SPINE WO CONTRAST REASON FOR STUDY: ??See Additional Indications Above ? Indication Not Found, pain on left at C2-C3 NECK PAIN X 1-2 YRS, PROGRESSIVELY WORSE. NKI. CHRONIC HEADACHES, MORE THAN 5 YRS. History of Cancer? NO Surgeries: N/A TECHNIQUE: ??Sagittal and Axial imaging includes T1, T2, STIR and gradient echo sequences. COMPARISON: ??Cervical spine radiographs 08/19/2018. ??MRI brain 06/12/2018. FINDINGS: ??ALIGNMENT: There straightening of the cervical lordosis. ??There is grade 1 anterolisthesis of C3 on C4. ??There is grade 1 anterolisthesis of C4 on C5. VERTEBRAE: Vertebral body height well-maintained. Normal appearing marrow. DISCS: Disc heights well-maintained. HARDWARE: None in the spine. CORD: Normal in size and signal intensity. INDIVIDUAL LEVELS: C1-C2: No significant spinal stenosis. C2-C3: No significant spinal stenosis or neural foraminal stenosis. C3-C4: There is a mild diffuse disc bulge. No significant spinal stenosis or neural foraminal stenosis. C4-C5: There is a diffuse disc bulge with flattening of the ventral thecal sac. ??Mild spinal stenosis. ??Mild right and ybgn-ki-mooosmgo left neural foraminal stenosis. C5-C6: There is a diffuse disc bulge with flattening of the ventral thecal sac. ??Mild spinal stenosis. ??No right neural foraminal stenosis. ??Mild left neural foraminal stenosis. C6-C7: There is a mild diffuse disc bulge. ??No significant spinal stenosis. ??No right neural foraminal stenosis. ??Mild left neural foraminal stenosis. C7-T1: No significant spinal stenosis or neural foraminal stenosis. BASE OF BRAIN: No significant finding. UPPER THORACIC: Incompletely imaged. No significant spinal stenosis or foraminal stenosis. OTHER: No other significant finding. IMPRESSION: ??Multilevel cervical spondylosis as above. THIS IS AN ELECTRONICALLY VERIFIED FINAL REPORT 02/11/2019 11:39 AM - Electronically signed by Lang Castrejon M.D. AK: ROWDY D: ??02/11/2019 11:39 AM T: ??02/11/2019 11:39 AM Report ID: [id number] Reading Location: ??[id number] Procedure Note Lang Castrejon MD - 02/11/2019 [place] [address] DIAGNOSTIC IMAGING Name: GOMEZ, MICHELLE K Ordering Phys: BENNY JOHNSTON Age: 33 Date of : 1985 Accession Number: [id number] Date of Service:02/11/2019 Gender: F EXAM DESCRIPTION: MRI CERVICAL SPINE WO CONTRAST REASON FOR STUDY: See Additional Indications Above ? Indication Not Found, pain on left at C2-C3 NECK PAIN X 1-2 YRS, PROGRESSIVELY WORSE. NKI. CHRONIC HEADACHES, MORE THAN 5 YRS. History of Cancer? NO Surgeries: N/A TECHNIQUE: Sagittal and Axial imaging includes T1, T2, STIR and gradient echo sequences. COMPARISON: Cervical spine radiographs 08/19/2018. MRI brain 06/12/2018. FINDINGS: ALIGNMENT: There straightening of the cervical lordosis. There is grade 1 anterolisthesis of C3 on C4. There is grade 1 anterolisthesis of C4 on C5. VERTEBRAE: Vertebral body height well-maintained. Normal appearing marrow. DISCS: Disc heights well-maintained. HARDWARE: None in the spine. CORD: Normal in size and signal intensity. INDIVIDUAL LEVELS: C1-C2: No significant spinal stenosis. C2-C3: No significant spinal stenosis or neural foraminal stenosis. C3-C4: There is a mild diffuse disc bulge. No significant spinal stenosis or neural foraminal stenosis. C4-C5: There is a diffuse disc bulge with flattening of the ventral thecal sac. Mild spinal stenosis. Mild right and xvqd-eu-uetodpxu left neural foraminal stenosis. C5-C6: There is a diffuse disc bulge with flattening of the ventral thecal sac. Mild spinal stenosis. No right neural foraminal stenosis. Mild left neural foraminal stenosis. C6-C7: There is a mild diffuse disc bulge. No significant spinal stenosis. No right neural foraminal stenosis. Mild left neural foraminal stenosis. C7-T1: No significant spinal stenosis or neural foraminal stenosis. BASE OF BRAIN: No significant finding. UPPER THORACIC: Incompletely imaged. No significant spinal stenosis or foraminal stenosis. OTHER: No other significant finding. IMPRESSION: Multilevel cervical spondylosis as above. THIS IS AN ELECTRONICALLY VERIFIED FINAL REPORT 02/11/2019 11:39 AM - Electronically signed by Lang Castrejon M.D. AK: ROWDY Report ID: [id number] Reading Location: [place] [address] Benny Johnston DO IMG MRI ORDERABLES Final Resu lt * Celiac panel (02/06/2019 10:32 AM CDT) IgA 231 65 - 421 mg/dl [facility] Tissue Transglutaminase IgA 4.74 0.00 - 15.00 u/ml [facility] Blood specimen (specimen) 02/06/2019 10:32 AM CDT 02/06/2019 10:41 AM CDT Comment:- Narrative [facility] - 02/10/2019 11:06 AM CDT Testing performed at [facility], [address] [place] [address]. ??Personal Companion Rubens Varma MD Benny Johnston DO LAB BLOOD ORDERABLES Final Re sult [facility] [address] [place] [address] [phone] * Progesterone (02/06/2019 10:32 AM CDT) Progesterone 0.1 ng/mL [facility] Comment: Male ? 0.0 - ??0.2 ng/mL Female Follicular ? 0.0 - 0.3 ??ng/mL Luteal ? 1.2 - 15.9 ng/mL Postmenopausal 0.0 - 0.2 ??ng/mL 1st Trimester ??2.8 -147.3 ng/mL 2nd Trimester ??22.5-95.3 ??ng/mL 3rd Trimester ??27.9-242.5 ng/mL Blood specimen (specimen) 02/06/2019 10:32 AM CDT 02/06/2019 10:41 AM CDT Comment:- Narrative [facility] - 02/06/2019 1:02 PM CDT Testing performed at [facility], [address] [place] [address]. ??Personal Companion Rubens Varma MD Benny Johnston DO LAB BLOOD ORDERABLES Final Re sult Performing Organization Address [facility] Co de Phone Number [facility] [address] [place] [address] [phone] * Testosterone (02/06/2019 10:32 AM CDT) TESTOSTERONE 33.7 13.8 - 53.4 ng/dL [facility] Blood specimen (specimen) BLOOD SPECIMEN / Unknown 02/06/2019 10:32 AM CDT 02/06/2019 10:41 AM CDT Comment:- Narrative [facility] - 02/09/2019 12:22 PM CDT Testing performed at [facility], [address] [place] [address]. ??Personal Companion Rubens Varma MD Benny Johnston DO LAB BLOOD ORDERABLES Final Re sult Performing Organization Address [facility] Co de Phone Number [facility] [address] [place] [phone] [phone] * Rheumatoid factor (02/06/2019 10:32 AM CDT) Rheumatoid Factor <15 0 - 30 IU/mL [facility] Blood specimen (specimen) 02/06/2019 10:32 AM CDT 02/06/2019 10:41 AM CDT Comment:- Narrative [facility] - 02/06/2019 1:36 PM CDT Testing performed at [facility], [address] [place] [address]. ??Personal Companion Rubens Varma MD Benny Johnston DO LAB BLOOD ORDERABLES Final Re sult Performing Organization Address [facility] Co de Phone Number [facility] [address] [place] [address] [phone] * Sedimentation rate (02/06/2019 10:32 AM CDT) Pathologist [facility] Sedimentation Rate 12 0 - 20 mm/hr [facility] Blood specimen (specimen) 02/06/2019 10:32 AM CDT 02/06/2019 10:41 AM CDT Comment:- Narrative [facility] - 02/06/2019 11:17 AM CDT Testing performed at [facility], [address] [place] [address]. ??Personal Companion Rubens Varma MD Benny Johnston DO LAB BLOOD ORDERABLES Final Re sult Performing Organization Address [facility] Phone Number [facility] [address] [place] [address] [phone] * High sensitivity CRP (02/06/2019 10:32 AM CDT) CRP 0.72 mg/L [facility] Comment: Inflammatory process: 0.07 - 4.94 mg/L Cardiac Risk Assessment ??(mg/L) <0.6 ?Normal 0.7 - 1.1 ?? Relative Risk 1.7 1.2 - 2.1 ?? Relative Risk 2.6 ?> 2.2 ?? Relative Risk 2.9 ?> 4.94 ??The high sensitivity CRP ?result may be confounded ?by acute inflammatory ?disease. Clinical correlation essential. ?? Blood specimen (specimen) 02/06/2019 10:32 AM CDT 02/06/2019 10:41 AM CDT Comment:- Narrative [facility] - 02/06/2019 1:38 PM CDT Testing performed at [facility], [address] [place] [address]. ??Personal Companion Rubens Varma MD Benny Johnston DO LAB BLOOD ORDERABLES Final Re sult [facility] [address] [place] [address] [phone] * Estradiol (02/06/2019 10:32 AM CDT) Estradiol Level 175 pg/mL [facility] Comment: Ovulatory Cycle Follicular ?21-251 pg/mL Preovulatory 38-648 pg/mL Luteal ? 21-312 pg/mL Adult Female Untreated Postmenopausal ??<10 - ??28 pg/ml Treated Postmenopausal ?<10 - 144 pg/ml Males ?11-44 pg/mL Blood specimen (specimen) 02/06/2019 10:32 AM CDT 02/06/2019 10:41 AM CDT Comment:- Narrative [facility] - 02/06/2019 1:02 PM CDT Testing performed at [facility], [address] [place] [address]. ??Personal Companion Rubens Varma MD Benny Johnston DO LAB BLOOD ORDERABLES Final Re sult Performing Organization Address [facility] Co de Phone Number [facility] [facility] [address] [place] [address] [phone] * Cyclic Citrullinated Peptide Antibodies (02/06/2019 10:32 AM CDT) Cyclic Citrullinated Peptide Ab 1.6 0.0 - 5.0 u/ml [facility] Blood specimen (specimen) 02/06/2019 10:32 AM CDT 02/06/2019 10:41 AM CDT Comment:- Narrative [facility] - 02/12/2019 10:10 AM CDT Testing performed at [facility], [address] [place] [address]. ??Personal Companion Rubens Varma MD Benny Johnston DO LAB BLOOD ORDERABLES Final Re sult Performing Organization Address [facility] Co de Phone Number [facility] [address] [place] [address] [phone] documented in this encounter Visit Diagnoses Diagnosis Chronic nonintractable headache, unspecified headache type- Primary Neck pain Cervicalgia Leg length discrepancy Unequal leg length (acquired) Somatic dysfunction of spine, cervical Nonallopathic lesion of cervical region, not elsewhere classified Chronic nonintractable headache, unspecified headache type Neck pain Cervicalgia documented in this encounter Care Teams Analyst Market Intelligence Relationship Specialty [place] [address] [place] [address] [address] [place] [address] PCP - General Podiatry 08/23/15 documented as of this encounter
--- OUTSIDE RECORDS SUMMARY | 2024-11-30 10:18 | XMS_ITS | Encounter Summary ---
Author Organization [facility] Address [address] [place] [address] Care Team Providers Care Nursing Student Name Role Phone Delonte Marin MD Primary Care Provider +1- [phone] Reason for Visit * Reason Comments Medication Refill Encounter Details Date Type Department Care Team (Late st Contact Info) Description 02/28/2019 Refill [facility] Neurology [address] [place] [phone] Delonte Farfan MD [address] [place] [address] [address] [place] [address] Migraine without status migrainosus, not [...] unspecified migraine type documented in this encounter Care Teams Nursing Student Relationship Specialty Start Date End Date Delonte Marin MD [address] [facility] [address] [place] [address] PCP - General Podiatry 08/23/15 documented as of this encounter
--- OUTSIDE RECORDS SUMMARY | 2024-11-30 10:18 | XMS_ITS | Encounter Summary ---
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 Name Role Phone Delonte Marin MD Primary Care Provider +1- [phone] Reason for Referral * Referral (Routine) - Closed Specialty Diagnoses / Procedures Referred By Contdevyn t Referred To Contact Rheumatology Diagnoses Chronic neck pain Chronic nonintractable headache, unspecified headache type Benny Johnston DO [address] [place] [address] Phone: tel: fax: Shorty Fontanez MD Phone: tel: fax: Referral ID Status Reason Start Date Expiration Date V isits Requested Visits Authorized [id number] Closed Specialty Services Required 05/06/2019 05/05/2020 1 1 Encounter Details Date Type Department Care Team (Latest Contact Info) Description 05/06/2019 3:00 PM CDT Office Visit [facility] Musculoskeletal [address] [place] [phone] Benny Johnston DO [address] [place] [address] Chronic neck pain (Primary Dx); Chronic nonintractable headache, unspecified headache type; Neck pain Social History Tobacco Use Types [...] Sign Reading Time Taken Comments Blood Pressure 110/72 05/06/2019 3:23 PM CDT Pulse - - Temperature - - Respiratory Rate - - Oxygen Saturation - - Inhaled Oxygen Concentration - - Weight 72.6 kg (160 lb) 05/06/2019 3:23 PM CDT v erbal Height - - Body Mass Index 25.82 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 At last office visit, she was prescribed progesterone to use approx starting on day 10of her cycle. She states she hasn't noticed any difference since using the progesterone. She statesher pain has remained the same since last office visit. Wakes up almost every morning with headaches and neck pain. Taking Imitrex, Fioricet and Advil as needed. Rest & applying ice help with herpain. Sleeping makes it worse. Objective: She is alert and oriented with good affect and in no acute distress today. Previous examination taken into consideration today. Continued suboccipital muscle tenderness present much greater on the left. Mild upper cervical paraspinal tender points present on the left. This is the focus of her pain. Rheumatologic and hormonal labs of 02/06/19: Within normal limits. ?? MRI report cervical spine of 02/11/19: C3-C4: Mild diffuse disc bulge. C4-C5: diffuse disc bulge with flattening of the ventral thecal sac. Mild spinal stenosis. Mild right and mild to moderate left neuroforaminal stenosis. C5-C6: diffuse disc bulge. Mild spinal stenosis. Mild left neuroforaminal stenosis. C6- C7: Mild diffuse disc bulge. Mild left neuroforaminal stenosis. ?? Images and report reviewed with patient. ?? Postural x-ray report of 02/02/19: Mild dextrocurvature of thoracic spine and levocurvature of the lumbar spine. ??Chronic appearing L5 spondylolysis with grade 1 anterolisthesis. ??Femoral head inequality -10 mm on the left. ??Sacral base inequality -24 mm on the left. ??Lumbosacral angle equals 31degrees. ?? Cervical x-ray report of 08/19/18: Straightening of the normal cervical lordosis with grade 1 anterior listhesis of C3 on C4. ??Mild laxity at C3-C4. ?? MRI report brain without contrast of 10/13/18: No focal abnormalities. ?? Assessment: ?? 1. Chronic neck pain primarily left-sided 2. Chronic headaches 3. Cervical disc degeneration 4. Cervical spinal stenosis 5. Cervical foraminal stenosis 6. Spinal enthesopathy-suboccipital musculature Plan: I discussed options with the patient today. While rheumatologic labs are not significantly elevated, she does have concern in terms of her painwhether or not she may have some rheumatologic or immune mediated pathology. I would like to set her up to see Dr. Fontanez to help rule this out. She will follow-up here after that. She will call if she has any increase in pain or symptoms prior to her next scheduled visit. Patient understands and is in agreement with plan. I spent 20 minutes of our 30-minute visit discussing plan and options with the patient today. documented in this encounter Plan of Treatment Scheduled Referrals Name Type Priority Associated Diagnoses Orde r Schedule Amb Ref to Rheumatology Outpatient Referral Routine Chronic neck pain Chronic nonintractable headache, unspecified headache type Ordered: 05/06/2019 documented as of this encounter Goals Goal Patient Goal Type Associated Problems Recent Progress Patient-Stated? Author Use sunscreen daily Lifestyle No Divya Cr, RN Frequent Skin Checks Lifestyle No Divya Cr, RN documented as of this encounter Visit Diagnoses Diagnosis Chronic neck pain- Primary Cervicalgia Chronic nonintractable headache, unspecified headache type Neck pain Cervicalgia documented in this encounter Care Teams Postal Service Mail Processor Relationship Specialty Start Date End Date Delonte Marin MD [address] [facility] [address] [place] [address] PCP - General Podiatry 08/23/15 documented as of this encounter
--- OUTSIDE RECORDS SUMMARY | 2024-11-30 10:18 | XMS_ITS | Encounter Summary ---
Author Organization [employer] Address [address] [place] [address] Care Team Providers Care Dental Director Name Role Phone Delonte Marin MD Primary Care Provider +1- [phone] Reason for Visit * Reason Onset Date Comments other 02/18/2019 Encounter Details Date Type Department Care Team (Late st Contact Info) Description 02/18/2019 Telephone [facility] Orthopedics and Sports Medicine [address] [place] [address] Rose Marie Doran, [facility] [address] [place] [address] other Social History Tobacco Use [...] Encounter - Rose Marie Doran MA - 02/18/2019 4:12 PM CDT Call returned, and an appt was scheduled with patient. * Telephone Encounter - Elías Muhammad DO - 02/18/2019 12:39 PM CDT She would need and appointment for that. Thanks. * Telephone Encounter - Rose Marie Doran MA - 02/18/2019 8:59 AM CDT ----- Message from Sonya Galeas sent at 02/18/2019 8:45 AM CDT ----- Contact: patient Provider: Jb Is the patient active on MyChart: No Phone: Has the patient called or been called about this issue: This is a first call for this issue. Patient called: previsouly seen Dr Muhammad for her neck. After that patient had an appt with Kate. He ordered an MRI for her. Results state she has a bulging disc. She would like to speak with nurse for Dr Muhammad now and get Dr Muhammad opinion of the MRI and see what he thinks she should do. Please call her. Thanks. [phone] documented in this encounter Plan of Treatment Not on file documented as of this encounter Goals Goal Patient Goal Type Associated Problems Recent Progress Patient-Stated? Author Use sunscreen daily Lifestyle No Divya Cr RN Frequent Skin Checks Lifestyle No Divya Cr, RN documented as of this encounter Visit Diagnoses Not on filedocumented in this encounter Care Teams Dental Director Relationship Specialty [place] [address] [place] [address] [address] [place] [address] PCP - General Podiatry 08/23/15 documented as of this encounter
--- OUTSIDE RECORDS SUMMARY | 2024-11-30 10:18 | XMS_ITS | Encounter Summary ---
Author Organization [employer] Address [address] [place] [address] Care Team Providers Care Student Services Rep Name Role Phone Delonte Marin MD Primary Care Provider +1- [phone] Encounter Details Date Type Department Care Team (Late st Contact Info) Description 08/06/2019 Orders Only [address] [place] [address] Janeen Dickson, RN [address] [place] [address] [address] [place] [address] Social History Tobacco Use Types [...] on filedocumented in this encounter Care Teams Student Services Rep Relationship Specialty Start Date End Date Delonte Marin MD [address] [place] [address] [address] [place] [address] PCP - General Podiatry 08/23/15 documented as of this encounter
--- OUTSIDE RECORDS SUMMARY | 2024-11-30 10:18 | XMS_ITS | Encounter Summary ---
Author Organization [employer] Address [address] [place], [place] [address] Care Team Providers Care Tone Cabinet Assembler Name Role Phone Delonte Marin MD Primary Care Provider +1- [phone] Encounter Details Date Type Department Care Team (Latest Contact Info) Description 02/13/2019 8:30 AM CDT Office Visit [facility] Musculoskeletal [address] [place] [address] Benny Johnston, [address] [place] [address] Neck pain (Primary Dx); Chronic nonintractable headache, unspecified headache type; Leg length discrepancy; Cervical spinal stenosis; Foraminal stenosis of cervical region; Spinal enthesopathy Social History Tobacco Use Types Packs/Day Years [...] Sign Reading Time Taken Comments Blood Pressure 118/76 02/13/2019 8:40 AM CDT Pulse - - Temperature - - Respiratory Rate - - Oxygen Saturation - - Inhaled Oxygen Concentration - - Weight 70.3 kg (155 lb) 02/13/2019 8:40 AM CDT v erbal Height - - Body Mass Index 25.02 11/20/2018 12:08 PM RV 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 She states her pain is the same. Mornings is when she has the most problems. Medications help her pain feel better. Exercise makes her pain worse. She states since her last office visit she has started to have pain that starts in the left low back & goes down her left leg. Is taking Advil as needed for this pain. She rates her pain as a 5 on the pain scale. Objective: She is alert and oriented with good affect and in no acute distress today. There is significant tenderness to palpation along the left suboccipital region. Continued tenderness to palpation at the C2-C3 level on the left. Rheumatologic and hormonal labs of 02/06/19: Within normal limits. MRI report cervical spine of 02/11/19: C3-C4: Mild diffuse disc bulge. C4-C5: diffuse disc bulge with flattening of the ventral thecal sac. Mild spinal stenosis. Mild right and mild to moderate left neuroforaminal stenosis. C5-C6: diffuse disc bulge. Mild spinal stenosis. Mild left neuroforaminal stenosis. C6- C7: Mild diffuse disc bulge. Mild left neuroforaminal stenosis. Images and report reviewed with patient. Postural x-ray report of 02/02/19: Mild dextrocurvature of thoracic spine and levocurvature of the lumbar spine. Chronic appearing L5 spondylolysis with grade 1 anterolisthesis. Femoral head inequality -10 mm on the left. Sacral base inequality -24 mm on the left. Lumbosacral angle equals 31 degrees. ?? Cervical x-ray report of 08/19/18: Straightening of the normal cervical lordosis with grade 1 anterior listhesis of C3 on C4. Mild laxity at C3-C4. ?? MRI report brain without contrast of 10/13/18: No focal abnormalities. Assessment: 1. Chronic neck pain primarily left-sided 2. Chronic headaches 3. Cervical disc degeneration 4. Cervical spinal stenosis 5. Cervical foraminal stenosis 6. Spinal enthesopathy-suboccipital musculature Plan: I discussed options with the patient today. She is going to try glucosamine and chondroitin sulfate. Also looked at option of cervical pillow. We also discussed possible epidural or suboccipital tendon injection. She is interested in diagnostic/therapeutic suboccipital tendon injection. We will set her up for that here. She is aware this may or may not help her. She is aware possible risks and benefits. We also discussed that about day 10 of her cycle she tends to have pain. Consideration of bioidentical hormone replacement short-term. Patient understands and is in agreement with plan. ?? documented in this encounter Plan of Treatment Not on file documented as of this encounter Goals Goal Patient Goal Type Associated Problems Recent Progress Patient-Stated? Author Use sunscreen daily Lifestyle No Divya Cr, RN Frequent Skin Checks Lifestyle No Divya Cr RN documented as of this encounter Visit Diagnoses Diagnosis Neck pain- Primary Cervicalgia Chronic nonintractable headache, unspecified headache type Leg length discrepancy Unequal leg length (acquired) Cervical spinal stenosis Spinal stenosis in cervical region Foraminal stenosis of cervical region Spinal stenosis in cervical region Spinal enthesopathy documented in this encounter Care Teams Tone Cabinet Assembler Relationship Specialty [place] [address] [place] [address] [place] [address] PCP - General Podiatry 08/23/15 documented as of this encounter
--- OUTSIDE RECORDS SUMMARY | 2024-11-30 10:18 | XMS_ITS | Encounter Summary ---
Author Organization [employer] Address [address] [place] [address] Care Team Providers Care Professor Of Economics Name Role Phone Delonte Marin MD Primary Care Provider +1- [phone] Reason for Visit * Reason Onset Date Comments Lab Reminder 03/13/2019 Encounter Details Date Type Department Care Team ([facility] st Contact Info) Description 03/13/[address] [place] [address] Wendi Prince CMA [address] [facility] [address] [place] [address] Lab Reminder Social History Tobacco Use Types Packs/Day Years [...] Telephone Encounter - Wendi Prince CMA - 03/13/2019 2:25 PM CDT Called patient to remind her that Dr. Marin had wanted to recheck her magnesium level. She states that they are still trying to figure out why she has the migraines and she is going to try some hormone therapy so she doesn't want to get it checked at this time. She is still taking the magnesium. documented in this encounter Plan of Treatment Not on file documented as of this encounter Goals Goal Patient Goal Type Associated Problems Recent Progress Patient-Stated? Author Use sunscreen daily Lifestyle No Divya Cr, RN Frequent Skin Checks Lifestyle No Divya Cr, RN documented as of this encounter Visit Diagnoses Not on filedocumented in this encounter Care Teams Professor Of Economics Relationship Specialty [place] [address] [place] [address] [place] [address] PCP - General Podiatry 08/23/15 documented as of this encounter
--- OUTSIDE RECORDS SUMMARY | 2024-11-30 10:18 | XMS_ITS | Encounter Summary ---
Author Organization [employer] Address [address] [place] [address] Care Team Providers Care Audiology Technician Name Role Phone Delonte Marin MD Primary Care Provider +1- [phone] Reason for Visit * Referral (Routine) - Closed Specialty Diagnoses / Procedures Referred By Tommie jara Referred To Contact Rheumatology Diagnoses Chronic neck pain Chronic nonintractable headache, unspecified headache type Benny Johnston DO [address] [place] [address] Phone: tel: fax: Shorty Fontanez MD Phone: tel: fax: Referral ID Status Reason Start Date Expiration Date V isits Requested Visits Authorized [id number] Closed Specialty Services Required 05/06/2019 05/05/2020 1 1 Encounter Details Date Type Department Care Team (Latest Contact Info) Description 07/07/2019 9:15 AM CDT Initial consult [facility] Rheumatology [address] [place] [address] Benny Johnston DO [address] [place] [address] Shorty Fontanez MD [facility] [place] [address] Cervical spine pain (Primary Dx) Social History Tobacco Use [...] Sign Reading Time Taken Comments Blood Pressure 100/68 07/07/2019 9:47 AM CDT Pulse 120 07/07/2019 9:47 AM CDT Temperature - - Respiratory Rate - - Oxygen Saturation 98% 07/07/2019 9:47 AM CDT Inhaled Oxygen Concentration - - Weight 70.3 kg (155 lb) 07/07/2019 9:47 AM CDT Height - - Body Mass Index 25.02 11/20/2018 12:08 PM 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 These have been somewhat cyclical. She has no history of psoriasis and no history of inflammatory bowel disease. She also has some mid to low back pain but it seems the neck is the major issue. Past medical history, past surgical history, social history, family history and review of systems is contained in the [employer] patient history form and was reviewed with the patient. General: Alert and oriented x3 in no acute distress. HEENT: Normocephalic atraumatic with no scleral icterus. PERRLA. Tympanic membranes are clear bilaterally. The oropharynx is free of ulceration. Neck: Supple, thyroid is within normal limits. Chest: Respiratory effort is normal lungs are clear to auscultation bilaterally. Heart: Regular rate and rhythm with no murmurs rubs or gallops. Abdomen: Soft, nontender and nondistended with no hepatosplenomegaly appreciated. Extremities: No clubbing cyanosis or edema is present today. There's no active synovitis present. Assessment: Neck pain Plan: We will check the HLA-B27 as well as a CK level. We know she had minimum has degenerative disc disease in her C-spine. We will go ahead and start Celebrex 200 mg daily. I would consider Cymbalta as well. We will call her with her results and further recommendations. Patient understands and agrees with plan. Please send a copy to referring physician for review. documented in this encounter Plan of Treatment Not on file documented as of this encounter Goals Goal Patient Goal Type Associated Problems Recent Progress Patient-Stated? Author Use sunscreen daily Lifestyle No Divya Cr RN Frequent Skin Checks Lifestyle No Divya Cr RN documented as of this encounter Results * HLA-B27 antigen (07/07/2019 10:45 AM CDT) Pathologist [facility] HLA B27 NEGATIVE NEGATIVE [facility] Blood specimen (specimen) 07/07/2019 10:45 AM CDT 07/07/2019 11:09 AM CDT Comment:- Narrative [facility] - 07/09/2019 6:00 PM CDT Testing performed at: [employer] [facility], [address] [place], [address], Internist: IRIS FABIAN MD,PHD,LUCY us Shorty Fontanez MD LAB BLOOD ORDERABLES Final Re sult [facility] [address] [place] [address] [phone] * CK (07/07/2019 10:45 AM CDT) Total CK 79 29 - 168 U/L [facility] Blood specimen (specimen) 07/07/2019 10:45 AM CDT 07/07/2019 11:08 AM CDT Comment:- Narrative [facility] - 07/07/2019 11:55 AM CDT Testing performed at [facility], [address] [place] [address]. CLIA [id number] Phone [phone] Ext [phone] ??Internist Rubens Varma MD us Shorty Fontanez MD LAB BLOOD ORDERABLES Final Re sult [facility] [address] [facility] [address] [phone] documented in this encounter Visit Diagnoses Diagnosis Cervical spine pain- Primary Cervicalgia documented in this encounter Care Teams Audiology Technician Relationship Specialty Start Date End Date Delonte Marin MD [address] [facility] [address] [place] [address] PCP - General Podiatry 08/23/15 documented as of this encounter
--- OUTSIDE RECORDS SUMMARY | 2024-11-30 10:18 | XMS_ITS | Encounter Summary ---
Author Organization [employer] Address [address] [place] [address] Care Team Providers Care Bar Back Name Role Phone Delonte Marin MD Primary Care Provider +1- [phone] Reason for Visit * Reason Comments Neck Pain * MRI/CAT Scan (Routine) - Closed Specialty Diagnoses / Procedures Referred By Contac t Referred To Contact Radiology Diagnoses Chronic nonintractable headache, unspecified headache type Neck pain Procedures MRI Cervical Spine wo Contrast Benny Johnston, [address] [place] [address] Phone: tel: fax: Referral ID Status Reason Start Date Expiration Date Visits Re quested Visits Authorized [id number] Closed 02/06/2019 02/06/2020 1 1 Encounter Details Date Type Department Care Team (Late st Contact Info) Description 02/11/2019 8:00 AM CDT Clinical Support [facility] [address] [place] [phone] Benny Johnston DO [address] [place] [address] [place] [address] [place] [address] Chronic nonintractable headache, unspecified headache type; Neck [...] Name Priority Date/Time Associated Diagnosis Comments MRI CERVICAL SPINE WO CONTRAST Routine 02/11/2019 8:08 AM CDT Chronic nonintractable headache, unspecified headache type Neck pain documented in this encounter Results * MRI Cervical Spine wo Contrast (02/11/2019 8:08 AM CDT) Anatomical Region Laterality Modality C-spine, T-spine, Neck Magnetic Resonance 02/11/2019 8:08 AM CDT Narrative 02/11/2019 11:41 [place] [address] DIAGNOSTIC IMAGING Name: MICHELLE GOMEZ ? Ordering Phys: BENNY JOHNSTON Age: 33 ?Date of : 1985 ? Accession Number: [id number] Date of Service:02/11/2019 ?? Gender: F EXAM [...] sac. ??Mild spinal stenosis. ??Mild right and [id number] left neural foraminal stenosis. C5-C6: There is [...] AM T: ??02/11/2019 11:39 AM Report ID: [id number] Reading Location: ??[id number] Procedure Note Lang Castrejon MD - 02/11/2019 [place] [address] DIAGNOSTIC IMAGING Name: MICHELLE GOMEZ Ordering Phys: BENNY JOHNSTON Age: 33 Date of : 1985 Accession Number: [id number] Date of Service:02/11/2019 Gender: F EXAM DESCRIPTION: [...] sac. Mild spinal stenosis. Mild right and [id number] left neural foraminal stenosis. C5-C6: There is [...] Lang Castrejon M.D. AK: ROWDY Report ID: [id number] Reading Location: [place] [address] Benny Johnston DO IM MRI ORDERABLES Final Resu lt documented in this encounter Visit Diagnoses Diagnosis Chronic nonintractable headache, unspecified headache type Neck pain Cervicalgia documented in this encounter Care Teams Bar Back Relationship Specialty Start Date End Date Delonte Marin MD [address] [facility] [address] [place] [address] PCP - General Podiatry 08/23/15 documented as of this encounter
--- OUTSIDE RECORDS SUMMARY | 2024-11-30 10:18 | XMS_ITS | Encounter Summary ---
Author Organization [employer] Address [address] [place] [address] Care Team Providers Care Nematologist Name Role Phone Kathy Marin MD Primary Care Provider [phone]- [phone] Reason for Visit * Reason Comments Follow-up unscheduled follow u p of chronic neck pain Encounter Details Date Type Department Care Team (Late st Contact Info) Description 02/23/2019 11:15 AM CDT Office Visit [facility] Orthopedics and Sports Medicine [address] [place] [address] Elías Muhammad DO [address] [place] [address] Chronic neck pain (Primary Dx); Neck muscle spasm Social History Tobacco Use Types Packs/Day Years [...] as of this encounter Progress Notes * Elías Muhammad DO - 02/23/2019 11:15 AM CDT [facility] Orthopedics & SportsMEDICINE [address] [place] [address] SUBJECTIVE: Chief Complaint Patient presents with ??? Follow-up unscheduled follow up of chronic neck pain Michelle Gomez is a 33 y.o. female here today for an unscheduled follow up of chronic neck pain todiscuss MRI follow up and second opinion. She does take OTC advil, which does seem to help with thepain. MEDICATION: Current Outpatient Prescriptions: ??? bxnxkiyqbg-ckdaskqbuexhj-fsqtfeci (FIORICET, ESGIC) 50-325-40 MG per tablet, TAKE 1 TABLET BY MOUTH EVERY 4 HOURS NEEDED FOR PAIN. MOST LAST ONE MONTH, Disp: 15 tablet, Rfl: 0 ??? magnesium 200 MG TABS tablet, Take 200 mg by mouth daily., Disp: , Rfl: ??? nortriptyline (PAMELOR) 10 MG capsule, Take 6 capsules by mouth nightly., Disp: 180 capsule, Rfl: 5 ??? SUMAtriptan succinate (IMITREX) 100 MG tablet, [...] release Left 09/12/2015 Left hand carpal tunnel release./[place] ??? Carpal tunnel release Right 10/24/2015 Right hand carpal tunnel release./[place] ??? Foot surgery Left bunionectomy Past Medical History: Diagnosis Date ??? Acute sinusitis ??? Carpal tunnel syndrome ??? Gastroenteritis ??? Headache ??? Migraines ??? Panic attack There is no immunization history on file for this patient. PROBLEM LIST: Patient Active Problem List Diagnosis ??? Migraines ??? Panic attack ??? Seborrheic keratoses ??? Encounter for management of intrauterine contraceptive device (IUD) ??? Chronic neck pain ??? Neck muscle spasm ??? Tight fascia ??? Decreased ROM of neck ??? Fatigue OBJECTIVE: There were no vitals taken for this visit. There is no height or weight on file to calculate BMI. Physical Exam Intake note and vitals reviewed. Constitutional- well-developed, well-nourished, and in no distress. Mental status- alert and cooperative. Psych- mood and affect appropriate. Head, Face- normocephalic, atraumatic. Neck- symmetric and supple. Lymph- no cervical or supraclavicular LAD or tenderness. Cardiovascular- no upper extremity soft tissue swelling bilaterally. Skin- warm, dry and intact cervical spine, upper back and upper extremities without erythema, rashes or lesions. Neurologic- sensation to light tactile stimulation intact grossly intact upper extremity bilaterally. MSK- cervicothoracic spine exam finds no visible swelling, discoloration or deformity. There is mild diffuse tenderness palpation along the left lateral cervical masses today. Mild parvertebral spasmnoted left greater than right without appreciable spasm. Largely normal cervical range of motion inall directions but with fair to good motion [place] [address] ?? DIAGNOSTIC IMAGING ?? Name: MICHELLE GOMEZ ? Ordering Phys: KATHY ADKINS Age: 33 ?Date of : 1985 ? Accession Number: [id number] Date of Service:08/19/2018 ?? Gender: F ?? EXAM DESCRIPTION: ?? XR CERVICAL SPINE COMPLETE 6 OR MORE VIEWS ?? REASON FOR STUDY: ??NECK PAIN NKI, pain to posterior neck and headaches, off and on x1 year. ??Seems to be getting worse. ?? TECHNIQUE: ??7 radiographic views acquired of the cervical spine. ?? COMPARISON: ??None ?? FINDINGS: ??The bone mineralization is normal. ??No acute fracture or prevertebral soft tissue swelling is seen. ??The osseous neural foramina are patent. ??There straightening of the normal cervical lordosis with grade 1 anterolisthesis of C3 on C4. ??With flexion and extension radiographs, there is mild laxity at C3-C4. ?? IMPRESSION: ??No acute osseous abnormality. ??Straightening of the normal cervical lordosis with grade 1 anterolisthesis of C3 on C4. ?THIS IS AN ELECTRONICALLY VERIFIED FINAL REPORT 08/19/2018 12:19 PM - Electronically signed by Eduardo Bhandari M.D. ?? JR: D: ??08/19/2018 12:19 PM T: ??08/19/2018 12:19 PM ?? Report ID: [id number] Reading Location: ??[id number] ?? ASSESSMENT: Chronic nonradicular cervical pain with apparent associated tension type headache. 1. Chronic neck pain 2. Neck muscle spasm PLAN: -She will proceed with recommendations for evaluation for interventional cervical spine procedure. -She will keep us UTD on her symptom status. -See back as needed otherwise. Follow-up if symptoms worsen or fail to improve. Medications ordered this visit: Requested Prescriptions No prescriptions requested or ordered in this encounter Other Orders placed this visit: No orders of the defined types were placed in this encounter. There are no Patient Instructions on file for this visit. Elías Muhammad DO This document was dictated using [employer]; telephone answering service operator variances may occur. documented in this encounter Plan of Treatment Not on file documented as of this encounter Goals Goal Patient Goal Type Associated Problems Recent Progress Patient-Stated? Author Use sunscreen daily Lifestyle No Divya Cr RN Frequent Skin Checks Lifestyle No Divya Cr RN documented as of this encounter Visit Diagnoses Diagnosis Chronic neck pain- Primary Cervicalgia Neck muscle spasm Spasm of muscle documented in this encounter Care Teams Nematologist Relationship Specialty Start Date End Date Kathy Marin MD [address] [facility] [address] [place] [address] PCP - General Podiatry 08/23/15 documented as of this encounter
--- OUTSIDE RECORDS SUMMARY | 2024-11-30 10:18 | XMS_ITS | Encounter Summary ---
Author Organization [employer] Address [address] [place] [address] Care Team Providers Care Erco Machine Operator Name Role Phone Delonte Marin MD Primary Care Provider [phone]- [phone] Reason for Visit * Reason Onset Date Comments appointment 08/04/2019 opinion of sched uling follow up after seeing Dr. Fontanez Encounter Details Date Type Department Care Team ([facility] st Contact Info) Description 08/04/2019 Telephone [facility] Musculoskeletal [address] [place] [address] Itzel Snider, RN [address] [place] [address] appointment (opinion of scheduling follow up after seeing Dr. Fontanez) Social History Tobacco Use Types Packs/Day Years [...] encounter Miscellaneous Notes * Telephone Encounter - Itzel Snider RN - 08/04/2019 4:47 PM CDT Called and told patient the below information. Patient is not interested in epidural at all. She said that she would research and consider the suboccipital injection and give us a call to schedule anappointment if she would like to look into doing the injection. Thanks. Itzel Snider RN * Telephone Encounter - Benny Johnston DO - 08/04/2019 1:31 PM CDT MY NOTES INDICATED THAT WE HAD OFFERED HER SUBOCCIPITAL INJECTION A REASONABLE APPROACH TO SEE IF THAT WOULD HELP AND SHE CANCELED HAVING THAT DONE. I HAVE NOT SEEN HER IN 3 MONTHS SO I WOULD NEEDTO EXAMINE TO SEE IF THAT WAS INDICATED. WE ALSO LOOKED AT POSSIBLE EPIDURAL. SHE NEEDS TO KNOW THAT I CAN NEVER GUARANTEE ANYONE THAT WE CAN HELP BUT YES WE DO HAVE OTHER OPTIONS WHICH WE HAVE DISCUSSED PREVIOUSLY. IT IS HER CHOICE WHETHER OR NOT SHE WANTS TO PURSUE THOSE. THANKS. BRIAN * Telephone Encounter - Itzel Snider RN - 08/04/2019 11:02 AM CDT This patient called the office wanting to know if it was worth her coming in to the office for a follow up after seeing Dr. Fontanez. All of her labs were negative for rheumatologic or autoimmune issues so she stated she still did not have answers on what is going on with her. She stated that it is $300 for her to come to our office and she did not want to just be prescribed a pain medication and told that there is nothing else that can be done. I explained that our office has multiple different treatment options available and that it is up to her if she would like to come for a follow up to see what Dr. Zapata would like to do for her moving forward. She wanted me to send Dr. Zapata a message asking him if he thought it was worth her coming in again or not. Please advise. Thank you. Garth Snider RN documented in this encounter Plan of Treatment Not on file documented as of this encounter Goals Goal Patient Goal Type Associated Problems Recent Progress Patient-Stated? Author Use sunscreen daily Lifestyle No Divya Cr, RN Frequent Skin Checks Lifestyle No Divya Cr RN documented as of this encounter Visit Diagnoses Not on filedocumented in this encounter Care Teams Erco Machine Operator Relationship Specialty Start Date End Date Delonte Marin MD [address] [facility] [address] [place], [place] [id number] PCP - General Podiatry 08/23/15 documented as of this encounter
--- OUTSIDE RECORDS SUMMARY | 2024-11-30 10:18 | XMS_ITS | Encounter Summary ---
Author Organization [employer] Address [address] [place] [address] Care Team Providers Care Wood Hacker Name Role Phone Delonte Marin MD Primary Care Provider +1- [phone] Reason for Visit * Reason Comments Congestion head, states kids we re diagnosed with walking pneumonia and thinks she now has the crude Eye Pain feels like pressure Encounter Details Date Type Department Care Team (Late st Contact Info) Description 03/31/2019 2:30 PM CDT Office Visit [address] [place] [id number] Adelita Martinez, CATALOGUE ILLUSTRATOR [address] [place] [address] Acute pharyngitis, unspecified etiology (Primary Dx); Acute non-recurrent pansinusitis Social History Tobacco Use Types Packs/Day Years [...] Sign Reading Time Taken Comments Blood Pressure 138/78 03/31/2019 2:40 PM CDT Pulse 131 03/31/2019 2:40 PM CDT Temperature 36.3 ??C (97.4 ??F) 03/31/2019 2:40 PM CD T Respiratory Rate - - Oxygen Saturation 97% 03/31/2019 2:40 PM CDT Inhaled Oxygen Concentration - - Weight 72.8 kg (160 lb 6.4 oz) 03/31/2019 2:40 P M CDT Height - - Body Mass Index 25.89 11/20/2018 12: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 Take all of your antibiotic as prescribed, even if you are feeling better. Analgesics can be used for symptoms of sore throat, headache, and fever; although aspirin should not be used in children under 18 years old because of its association with Nando syndrome. Rest. Increase fluids. May use Honey if over 1 years old to soothe throat. Warm salt water gargles.Cool-moist humidifier. There is no need for isolation. Do not share beverages or snacks/foods with others. Replace your toothbrush 2 - 3 days after you start your antibiotic. Your symptoms should improve within 3 or 4 days. If your symptoms do not improve or become worse, please call the office. Children may return to school or daycare after taking antibiotics for at least 24 hours. They may also return to school after the fever is gone for 24 hours and they are no longer feeling sick Follow up with your PCP as needed. Sinusitis: Care Instructions Your Care Instructions Sinusitis [...] for yourself at home? ?? Take an ztdk-ncb-iafwnaj pain medicine, such as acetaminophen (Tylenol), ibuprofen (Advil, Motrin), or naproxen (Aleve). Read and follow all instructions on the label. ?? If the doctor prescribed antibiotics, take them as directed. Do not stop taking them just because you feel better. You need to take the full course of antibiotics. ?? Be careful when taking chut-lji-rgfswhd cold or flu medicines and Tylenol at [...] you learn more? Go to the Search Freta.lá option found under the Resources tab in [employer] [email or web address] If you do not have access to [employer], you can visit [email or web address] and select [facility] from the menu on the left. Enter I933 in the searchbox to learn more about Sinusitis: Care Instructions. Not on [employer]? Go to [email or web address] and click the Sign Up Now linkto request an activation code. Current as of: September 07, 2018 Content Version: 12.0 ?? [id number] [employer]. Care instructions adapted under license by your healthcare professional. This care instruction is for use with your licensed healthcare professional. If you have questions about a medical condition or this instruction, always ask your healthcare professional. [facility] disclaims any warranty or liability for your use of this information. documented in this encounter Progress Notes * Adelita Martinez APN - 03/31/2019 2:30 PM CDT [address] [place] [address] Dept: [phone] Dept Loc: [phone] Loc Date: 03/31/2019 Name: Michelle Gomez : 1985 PCP: Delonte Marin MD Subjective: Patient ID: Michelle Gomez is a 33 y.o. female. Michelle presents to the same day clinic for evaluation of congestion. This is a new problem. Duration:4 days. There has been no fever. Associated symptoms include sore throat, eye pain, nose pain, headache, and fatigue. Pertinent negatives include no N/V/D, abdominal pain, fever, cough, shortness of breath or body aches. She states that her children were diagnosed with walking pneumonia and she thinks she know has the crude . Patient's medications, allergies, past medical, surgical, social and family histories were reviewedand updated as appropriate. Review of Systems Constitutional: Positive for fatigue. Negative for fever. HENT: Positive for sinus pain, sinus pressure and sore throat. Eyes: Positive for pain. Negative for discharge. Respiratory: Negative. Cardiovascular: Negative. Gastrointestinal: Negative. Genitourinary: Negative. Musculoskeletal: Negative. Skin: Negative. Neurological: Positive for headaches. Hematological: Negative. Psychiatric/Behavioral: Negative. Objective: Blood pressure 138/78, pulse 131, temperature 36.3 ??C (97.4 ??F), temperature source Tympanic, weight 72.8 kg (160 lb 6.4 oz), SpO2 97 %., BMI Body mass index is 25.89 kg/m??. Physical Exam Constitutional: She is oriented to person, place, and time. She appears well- developed and well-nourished. No distress. HENT: Head: Normocephalic. Right Ear: Hearing, tympanic membrane, external ear and ear canal normal. Left Ear: Hearing, tympanic membrane, external ear and ear canal normal. Nose: Mucosal edema present. Right sinus exhibits no maxillary sinus tenderness and no frontal sinus tenderness. Left sinus exhibits no maxillary sinus tenderness and no frontal sinus tenderness. Mouth/Throat: Mucous membranes are normal. Uvula swelling present. Posterior oropharyngeal edema and posterior oropharyngeal erythema present. Tonsils are 2+ on the right. Tonsils are 2+ on the left. Eyes: Pupils are equal, round, and reactive to light. Conjunctivae are normal. Right eye exhibits no discharge. Left eye exhibits no discharge. Neck: Normal range of motion. No thyromegaly present. Cardiovascular: Regular rhythm and normal heart sounds. No murmur heard. Pulmonary/Chest: Effort normal and breath sounds normal. No respiratory distress. She has no wheezes. Lymphadenopathy: Head (right side): Submandibular and tonsillar adenopathy present. Head (left side): Submandibular and tonsillar adenopathy present. Neurological: She is alert and oriented to person, place, and time. Skin: Skin is warm. Psychiatric: She has a normal mood and affect. Nursing note and vitals reviewed. Assessment/Plan: Problem List Items Addressed This Visit None Visit Diagnoses Acute pharyngitis, unspecified etiology - Primary Relevant Orders AMB POCT Rapid Strep A (Completed) Acute non-recurrent pansinusitis Results for orders placed or performed in visit on 03/31/19 AMB POCT Rapid Strep A Collection Time: 03/31/19 12:00 AM Result Value Ref Range Rapid Strep A Screen Negative Negative Take medication as directed. Questions have been answered, patient verbalizes understanding and agreement with plan. Education has been provided. Take medication as directed. Follow up if not better in 5-7 days or if condition deteriorates in any way. To ER/911 if condition deteriorates significantly. Next Visit: Follow-up in about 1 week (around 04/07/2019), or if symptoms worsen or fail to improve. Encounter of: 03/31/2019 Signed: Adelita Martinez APN 04/18/2019 9:37 PM documented in this encounter Plan of Treatment Not on file documented as of this encounter Goals Goal Patient Goal Type Associated Problems Recent Progress Patient-Stated? Author Use sunscreen daily Lifestyle No Divya Cr, RN Frequent Skin Checks Lifestyle No Divya Cr RN documented as of this encounter Procedures Procedure Name Priority Date/Time Associated Diagnosis Comments AMB POCT RAPID STREP A Routine 03/31/2019 Acute pharyngitis, unspecified etiology documented in this encounter Results * AMB POCT Rapid Strep A (03/31/2019) Rapid Strep A Screen Negative Negative [facility] POCTS 03/31/2019 us Adelita Martinez APN POINT OF CARE TEST ORDERA BLES Final Result [facility] POCTS documented in this encounter Visit Diagnoses Diagnosis Acute pharyngitis, unspecified etiology- Primary Acute non-recurrent pansinusitis documented in this encounter Care Teams Wood Hacker Relationship Specialty Start Date End Date Delonte Marin MD [address] [facility] [address] [place] [address] PCP - General Podiatry 08/23/15 documented as of this encounter
--- OUTSIDE RECORDS SUMMARY | 2024-11-30 10:18 | XMS_ITS | Encounter Summary ---
Author Organization [employer] Address [address] [place] [address] Care Team Providers Care Operator Name Role Phone Delonte Marin MD Primary Care Provider +1- [phone] Reason for Visit * Reason Onset Date Comments Scheduled Appointment 02/12/2019 Encounter Details Date Type Department Care Team ([facility] st Contact Info) Description 02/12/2019 Telephone [facility] Musculoskeletal [address] [place] [address] Deborah Ramos, RN [address] [place] [address] Scheduled Appointment Social History Tobacco Use Types Packs/Day Years [...] encounter Miscellaneous Notes * Telephone Encounter - Deborah Ramos RN - 02/12/2019 3:18 PM CDT Phone call to home number on file. No answer. Left message regarding appointment reminder 02/13 at 830. Encouraged return call should she be unable to keep appointment. Thanks. SAMIA Weber documented in this encounter Plan of Treatment Not on file documented as of this encounter Goals Goal Patient Goal Type Associated Problems Recent Progress Patient-Stated? Author Use sunscreen daily Lifestyle No Divya Cr, RN Frequent Skin Checks Lifestyle No Divya Cr, RN documented as of this encounter Visit Diagnoses Not on filedocumented in this encounter Care Teams Operator Relationship Specialty Start Date End Date Delonte Marin MD [address] [facility] [address] [place] [address] PCP - General Podiatry 08/23/15 documented as of this encounter
--- OUTSIDE RECORDS SUMMARY | 2024-11-30 10:18 | XMS_ITS | Encounter Summary ---
Author Organization [employer] Address [address] [place] [address] Care Team Providers Care Vendor Management Consultant Name Role Phone Delonte Marin MD Primary Care Provider +1- [phone] Reason for Visit * Reason Onset Date Comments apt reminder 01/30/2019 Encounter Details Date Type Department Care Team ([facility] st Contact Info) Description 01/30/2019 Telephone [facility] Musculoskeletal [address] [place] [address] Zora Cadet, RN [address] [place] [address] apt reminder Social History Tobacco Use Types Packs/Day Years [...] encounter Miscellaneous Notes * Telephone Encounter - Zora Cadet RN - 02/05/2019 3:56 PM CDT Patient had her xrays done & is aware of this apt. Thanks. Rosie GRACIA * Telephone Encounter - Zora Cadet RN - 01/30/2019 9:31 AM CDT Call to this patient to remind them that there are xrays ordered for them to have prior to their new patient apt with us on 02/06/19. Reminded her these need done 3 days prior to her apt. Also inquired if she had received a new patient form in the mail. She states she did. Informed her that she needed to have that filled out and to bring that with her at the time of her apt. She VPU. Thanks. Maxx documented in this encounter Plan of Treatment Not on file documented as of this encounter Goals Goal Patient Goal Type Associated Problems Recent Progress Patient-Stated? Author Use sunscreen daily Lifestyle No Divya Cr, RN Frequent Skin Checks Lifestyle No Divya Cr, RN documented as of this encounter Visit Diagnoses Not on filedocumented in this encounter Care Teams Vendor Management Consultant Relationship Specialty Start Date End Date Delonte Marin MD [address] [facility] [address] [place] [address] PCP - General Podiatry 08/23/15 documented as of this encounter
--- OUTSIDE RECORDS SUMMARY | 2024-11-30 10:18 | XMS_ITS | Encounter Summary ---
Author Organization [employer] Address [address] [place] [address] Care Team Providers Care Wrapper Stripper Name Role Phone Delonte Marin MD Primary Care Provider +1- [phone] Reason for Visit * Reason Onset Date Comments Medication Refill 06/25/2019 Encounter Details Date Type Department Care Team (Late st Contact Info) Description 06/25/[address] [place] [address] Wendi Prince [facility] [address] [facility] [address] [place] [address] Migraine without status migrainosus, not intractable, unspecified [...] Notes * Telephone Encounter - Wendi Prince [facility] - 06/25/2019 12:56 PM CDT Images from the original note were not included. [facility] Caller: Unspecified (Today, 12:41 PM) ?? Provider: REESE Marin:rx refill Medication renewal request as follows: Med: sumatriptan Dose: 100mg tablets Instructions: take 1 tablet by mouth as needed for migraine;maximum daily dose is 2 tablets Preferred Pharmacy: [id number] - [place], [place] - [address] [facility] [id number] & [address] [facility] [id number] Is this the correct Pharmacy: Yes Have you spoken with pharmacy regarding this refill? No documented in this encounter Plan of Treatment [...] type documented in this encounter Care Teams Wrapper Stripper Relationship Specialty [place] [address] [place] [address] [address] [place] [address] PCP - General Podiatry 08/23/15 documented as of this encounter
--- OUTSIDE RECORDS SUMMARY | 2024-11-30 10:18 | XMS_ITS | Encounter Summary ---
Author Organization [employer] Address [address] [place] [address] Care Team Providers Care Automotive Tire Technician Name Role Phone Delonte Marin MD Primary Care Provider +1- [phone] Reason for Visit * Reason Comments Sore Throat Encounter Details Date Type Department Care Team ([facility] st Contact Info) Description 08/06/2019 9:15 AM CDT Office Visit [address] [place] [address] Heide Roblero MD [address] [place] [address] [address] [place] [address] Sore throat (viral) (Primary Dx) Social History Tobacco Use Types [...] Sign Reading Time Taken Comments Blood Pressure 102/68 08/06/2019 9:31 AM CDT Pulse 96 08/06/2019 9:31 AM CDT Temperature 36.6 ??C (97.8 ??F) 08/06/2019 9:31 AM CD T Respiratory Rate 12 08/06/2019 9:31 AM CDT Oxygen Saturation 98% 08/06/2019 9:31 AM CDT Inhaled Oxygen Concentration - - Weight 72.3 kg (159 lb 6.4 oz) 08/06/2019 9:31 A M CDT Height 167.6 cm (5' 6 ) 08/06/2019 9:31 AM CDT Body Mass Index 25.73 08/06/2019 9:31 AM CDT documented in this encounter Patient Instructions * Patient Instructions* Heide Roblero MD - 08/06/2019 9:15 AM CDT Images from the original note [...] cup of warm water. ?? Take an tepq-pqc-trnteun pain medicine, such as acetaminophen (Tylenol), ibuprofen (Advil, Motrin), or naproxen (Aleve). Read and follow all instructions on the label. ?? Be careful when taking laby-qff-lfovphi cold or flu medicines and Tylenol at [...] may help decrease throat pain. ?? Use psvz-yna-xuzacfc throat lozenges to soothe pain. Regular cough [...] option found under the Resources tab in [employer] [email or web address] If you do not have access to [employer], you can visit [email or web address] and select [employer] from the menu on the left. Enter U420 in the searchbox to learn more about Sore Throat: Care Instructions. Not on [employer]? Go to [email or web address] and click the Sign Up Now linkto request an activation code. Current as of: September 07, 2018 Content Version: 12.1 ?? [id number] [employer]. Care instructions adapted under license by your healthcare professional. This care instruction is for use with your licensed healthcare professional. If you have questions about a medical condition or this instruction, always ask your healthcare professional. [facility], [employer] disclaims any warranty or liability for your use of this information. documented in this encounter Progress Notes * Heide Roblero MD - 08/06/2019 9:15 AM CDT Subjective: Michelle Gomez is a 34 y.o. female who presents for evaluation of sore throat. No associated symptoms. Onset of symptoms was 4 days ago, and have been unchanged since that time. She is drinking plenty of fluids. She has had a recent close exposure to her children who had fevers for a few days withno other symptoms. Patient's problem list, medications, allergies, past medical, surgical, social and family historieswere reviewed and updated as appropriate. Review of Systems A comprehensive review of systems was negative except for: Ears, nose, mouth, throat, and face: positive for sore throat Objective: General appearance: alert, appears stated age, cooperative and no distress Head: Normocephalic, without obvious abnormality, atraumatic Eyes: conjunctivae/corneas clear. PERRL, EOM's intact. Fundi benign. Ears: normal TM's and external ear canals both ears Nose: Nares normal. Septum midline. Mucosa normal. No drainage or sinus tenderness. Throat: lips, mucosa, and tongue normal; teeth and gums normal Neck: no adenopathy and supple, symmetrical, trachea midline Lungs: clear to auscultation bilaterally Heart: regular rate and rhythm, S1, S2 normal, no murmur, click, rub or gallop Skin: Skin color, texture, turgor normal. No rashes or lesions Laboratory Strep test done. Results:negative. Assessment: Acute pharyngitis, likely Viral pharyngitis. Plan: Use of OTC analgesics recommended as well as salt water gargles. Follow up as needed. documented in this encounter Plan of Treatment Not on file documented as of this encounter Goals Goal Patient Goal Type Associated Problems Recent Progress Patient-Stated? Author Use sunscreen daily Lifestyle No Divya Cr RN Frequent Skin Checks Lifestyle No Divya Cr RN documented as of this encounter Procedures Procedure Name Priority Date/Time Associated Diagnosis Comments AMB POCT RAPID STREP A Routine 08/06/2019 Sore throat (viral) documented in this encounter Results * AMB POCT Rapid Strep A (08/06/2019) [facility] Rapid Strep A Screen Negative Negative [facility] POCTS 08/06/2019 Heide Roblero MD POINT OF CARE TEST ORDERABLE S Final Result [facility] POCTS documented in this encounter Visit Diagnoses Diagnosis Sore throat (viral)- Primary Acute pharyngitis documented in this encounter Care Teams Automotive Tire Technician Relationship Specialty Start Date End Date Delonte Marin MD [address] [facility] [address] [place] [address] PCP - General Podiatry 08/23/15 documented as of this encounter
--- OUTSIDE RECORDS SUMMARY | 2024-11-30 10:18 | XMS_ITS | Encounter Summary ---
Author Organization [employer] Address [address] [place] [address] Care Team Providers Care Mortgage Processor Name Role Phone Delonte Marin MD Primary Care Provider +1- [phone] Reason for Visit * Reason Comments Ear Pain right ear- 3-4 days Encounter Details Date Type Department Care Team (Late st Contact Info) Description 07/13/2019 11:30 AM CDT Office Visit [address] [place] [address] Delonte Marin MD [address] [place] [address] [address] [place] [address] Acute otitis externa of right ear, unspecified type (Primary Dx) Social History Tobacco Use [...] Reading Time Taken Comments Blood Pressure 120/70 07/13/2019 11:37 AM CDT Pulse 109 07/13/2019 11:37 AM CDT Temperature 36.3 ??C (97.4 ??F) 07/13/2019 11:37 AM C DT Respiratory Rate - - Oxygen Saturation 98% 07/13/2019 11:37 AM CDT Inhaled Oxygen Concentration - - Weight 72.8 kg (160 lb 6.4 oz) 07/13/2019 11:37 AM CDT Height 167.6 cm (5' 6 ) 07/13/2019 11:37 AM CDT Body Mass Index 25.89 07/13/2019 11:37 AM CDT documented in this encounter Progress Notes * Delonte Marin MD - 07/13/2019 11:30 AM CDT [facility] [address] [facility] [address] [facility] [address] Dept: [phone] Dept Loc: [phone] Loc Date: 07/13/2019 Name: Michelle Gomez : 1985 PCP: Delonte Marin MD Subjective: Patient ID: Michelle Gomez is a 33 y.o. female. CC: Michelle Gomez is a 33 y.o. patient is seen today for Chief Complaint Patient presents with ??? Ear Pain right ear- 3-4 days NOTE: Abbreviations, medical idioms and medical terminology are frequently used in office visit notes. Please call my nurse if you have questions about what an idiom means. (examples = CC, HPI, ROS, FU, HTN, DM, SOB, PERERA, TM, WCC, etc.) HPI Earache. My right ear canal started to feel 'thick' 3 or 4 days ago. She is seen for earache. It started in right ear(s) four days ago. She tried OTC nothing. She has no other symptoms. She denies ear trauma, ear drainage, fever, and decreased hearing. Patient's medications, allergies, past medical, surgical, social and family histories were reviewedand updated as appropriate. Review of Systems A 14-point ROS was performed. Additional ROS detailed in the HPI. Constitutional: No fever No chills. . HEENT: No sore throat Right earache. . Eyes: No diplopia No vision [...] amnesia No anxiety. . Objective: Blood pressure 120/70, pulse 109, temperature 36.3 ??C (97.4 ??F), temperature source Tympanic, height 1.676 m (5' 6 ), weight 72.8 kg (160 lb 6.4 oz), SpO2 98 %., BMI Body mass index is 25.89 kg/m??. Physical Exam Constitutional: Oriented to person, place, and time. Well-developed. Well- nourished. . . . ENT:. . . Left ear normal. Right ear mild canal irritation. Eyes:. . . . Head: Normocephalic and atraumatic. . . . Neck: Supple. Normal range of motion. . . . Pulmonary/Chest: Normal effort. No respiratory distress. Normal breath sounds. No wheezing. . . . Cardiovascular: Normal rate. Regular rhythm. Normal heart sounds. No murmur. . . . Abdominal: Soft. Normal bowel sounds. No guarding, or rebound, or mass. . . . Musculoskeletal: Normal range [...] thought content normal. . . . Current medications ??? ibuprofen (ADVIL) 200 MG CAPS, 0 ??? magnesium 200 MG TABS tablet, 0 ??? nortriptyline (PAMELOR) 10 MG capsule, 0 ??? uritgnxoyg-hsmxxdlnlkzzc-eibcadmt (FIORICET, ESGIC) 50-325-40 MG per tablet, 0 ??? celecoxib (CELEBREX) 200 MG capsule, 0 ??? Hormone Cream Base CREA, 0 ??? bdfwfzps-rdthmujtc-xqjvkzxcsgrqes (CORTISPORIN) 3.5-20590-8 otic suspension, 0 ??? SUMAtriptan succinate (IMITREX) 100 MG tablet, 0 Assessment/Plan: Problem List Items Addressed This Visit Acute otitis externa of right ear - Primary Relevant Medications rdanuaum-ivlufijvv-xmmzppclrycnlp (CORTISPORIN) 3.5-81072-3 otic suspension ASSESSMENT & PLAN: 1. Acute otitis externa of right ear, unspecified type STATUS: New ear canal infection. RECOMMENDATIONS: Rest. Take all medications as directed. FOLLOW UP: Telephone us or return to office if worse or does not resolve. MEDICATION: ORDERS: - rfcuytvg-fqclzyyig-jcidtszxrfonmm (CORTISPORIN) 3.5-53469-7 otic suspension; Place 3 drops into both ears 4 (four) times daily for 7 days. Dispense: 10 mL; Refill: 0 Questions have been answered. Patient verbalizes understanding and agreement with the plan. Education has been provided. BMI: Body mass index is 25.89 kg/m??. Wt Readings from Last 3 Encounters: 07/13/19 72.8 kg (160 lb 6.4 oz) 07/07/19 70.3 kg (155 lb) 05/06/19 72.6 kg (160 lb) ORDERS: Orders Placed This Encounter Medications ??? zhtgflpw-gfzaefemv-mahyepofdwlzig (CORTISPORIN) 3.5-48809-2 otic suspension Sig: Place 3 drops into both ears 4 (four) times daily for 7 days. Dispense: 10 mL Refill: 0 TESTS: Appointment on 07/07/2019 Component Date Value Ref Range Status ??? Total CK 07/07/2019 79 29 - 168 U/L Final ??? HLA B27 07/07/2019 NEGATIVE NEGATIVE Final Next Visit: Follow-up if symptoms worsen or fail to improve. Encounter of: 07/13/2019 Signed: Delonte Marin MD 07/13/2019 1:23 PM documented in this encounter Plan of Treatment Not on file documented as of this encounter Goals Goal Patient Goal Type Associated Problems Recent Progress Patient-Stated? Author Use sunscreen daily Lifestyle No Divya Cr, RN Frequent Skin Checks Lifestyle No Divya Cr, RN documented as of this encounter Visit Diagnoses Diagnosis Acute otitis externa of right ear, unspecified type- Primary documented in this encounter Care Teams Mortgage Processor Relationship Specialty Start Date End Date Delonte Marin MD [address] [facility] [address] [place] [address] PCP - General Podiatry 08/23/15 documented as of this encounter
--- OUTSIDE RECORDS SUMMARY | 2024-11-30 10:18 | XMS_ITS | Encounter Summary ---
Author Organization [employer] Address [address] [place] [address] Care Team Providers Care City Dispatch Supervisor Name Role Phone Delonte Marin MD Primary Care Provider +1- [phone] Reason for Visit * Reason Comments Skin Check Encounter Details Date Type Department Care Team (Late st Contact Info) Description 06/01/2019 10:45 AM CDT Office Visit [facility] [address] [place] [address] Juany Hurst MD [address] [place] [address] Tan angioma (Primary Dx); Nevus; Diffuse photodamage of skin; Callus Social History Tobacco Use Types Packs/Day [...] Progress Notes * Juany Hurst MD - 06/01/2019 10:45 AM CDT CHIEF COMPLAINT: Full body skin exam due to lesions of concern and history of significant ultraviolet exposure. HISTORY OF PRESENT ILLNESS: Michelle Gomez is a very pleasant 33 y.o. female presenting to clinic for the [...] ??? Headache ??? Migraines ??? Panic attack PROBLEM LIST: Patient Active Problem List Diagnosis ??? Migraines ??? Panic attack ??? Seborrheic keratoses ??? Encounter for management of intrauterine contraceptive device (IUD) ??? Chronic neck pain ??? Neck muscle spasm ??? Tight fascia ??? Decreased ROM of neck ??? Fatigue FAMILY HISTORY: Negative for malignant melanoma in family members. 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 lsgbijimmc-mncuiladpzazu-ecuxrcwg (FIORICET, ESGIC) 50-325-40 MG per tablet, 0 ??? Hormone Cream Base CREA, 0 ??? magnesium 200 MG TABS tablet, 0 ??? nortriptyline (PAMELOR) 10 MG capsule, 0 ??? SUMAtriptan succinate (IMITREX) 100 MG tablet, 0 ALLERGIES: No Known Allergies PHYSICAL EXAMINATION: ?? Constitutional: This is a [...] nevi throughout. Dryskin on the lower legs. Thick calluses noted to patient's toes and heels. RESULTS REVIEW: N/A IMPRESSION & PLAN: Calluses. Recommend OTC Kerasal to affected areas under socks daily at bedtime. Sun damaged skin. Photoprotection was emphasized and [...] sooner should symptoms worsen. 15 minutes spent xrrh-mq-eire with the patient today, greater than half [...] as of this encounter Visit Diagnoses Diagnosis Tan angioma- Primary Nevus, non-neoplastic Nevus Benign neoplasm of skin, site unspecified Diffuse photodamage of skin Other chronic dermatitis due to solar radiation Callus Corns and callosities documented in this encounter Care Teams City Dispatch Supervisor Relationship Specialty [place] [address] [place] [address] [address] [place] [address] PCP - General Podiatry 08/23/15 documented as of this encounter
--- OUTSIDE RECORDS SUMMARY | 2024-11-30 10:18 | XMS_ITS | Encounter Summary ---
Author Organization [employer] Address [address] [place] [address] Care Team Providers Care Paper Grader Name Role Phone Delonte Marin MD Primary Care Provider +1- [phone] Reason for Visit * Reason Onset Date Comments Medication Refill 06/30/2019 Encounter Details Date Type Department Care Team ([facility] st Contact Info) Description 06/30/2019 Refill [facility] Neurology [address] [place] [address] Martha Hill RN [address] [place] [address] Chronic migraine without aura without status [...] of status migrainosus documented in this encounter Care Teams Paper Grader Relationship Specialty Start Date End Date Delonte Marin MD [address] [facility] [address] [place] [address] PCP - General Podiatry 08/23/15 documented as of this encounter
--- OUTSIDE RECORDS SUMMARY | 2024-11-30 10:18 | XMS_ITS | Encounter Summary ---
Author Organization [employer] Address [address] [place], [place] [address] Care Team Providers Care Powertrain Design Engineer Name Role Phone Delonte Marin MD Primary Care Provider +1- [phone] Reason for Visit * Reason Onset Date Comments Update 03/23/2019 Encounter Details Date Type Department Care Team (Late st Contact Info) Description 03/23/[address] [address] Benny Johnston DO [address] [place] [address] Update Social History Tobacco Use Types Packs/Day Years [...] Telephone Encounter - Deborah Ramos RN - 03/23/2019 2:23 PM CDT Yes, scheduled for May 06 at 3 pm, to plan for following the patient's cycle. Thanks. SAMIA Weber * Telephone Encounter - Benny Johnston DO - 03/23/2019 1:23 PM CDT DID SHE FILL PRESCRIPTION? THANKS! BRIAN * Telephone Encounter - Deborah Ramos RN - 03/23/2019 9:10 AM CDT Yes she wanted the spot kept when I spoke with her after ordering the hormone, I just had not changed the visit reason text, but she had requested to keep the appointment.. Thanks. SAMIA Weber * Telephone Encounter - Benny Johnston DO - 03/23/2019 8:28 AM CDT MICHELLE WAS A NO SHOW TODAY POST EPIDURAL. SHE DID NOT HAVE EPIDURAL BUT WAS TO START ON BIOIDENTICAL HORMONE REPLACEMENT. WAS THIS FILLED AND IF SO WE WILL NEED ONE MONTH FOLLOWUP. THANKS. BRIAN documented in this encounter Plan of Treatment Not on file documented as of this encounter Goals Goal Patient Goal Type Associated Problems Recent Progress Patient-Stated? Author Use sunscreen daily Lifestyle No Divya Cr RN Frequent Skin Checks Lifestyle No Divya Cr RN documented as of this encounter Visit Diagnoses Not on filedocumented in this encounter Care Teams Powertrain Design Engineer Relationship Specialty [place] [address] [place] [address] [address] [place] [address] PCP - General Podiatry 08/23/15 documented as of this encounter
--- OUTSIDE RECORDS SUMMARY | 2024-11-30 10:18 | XMS_ITS | Encounter Summary ---
Author Organization [employer] Address [address] [place] [address] Care Team Providers Care Health Services Manager Name Role Phone Delonte Marin MD Primary Care Provider +1- [phone] Reason for Visit * Reason Comments Medication Refill Encounter Details Date Type Department Care Team (Late st Contact Info) Description 02/03/2019 Refill [facility] Neurology [address] [place] [address] Delonte Farfan MD [address] [place] [address] 2 [place] [address] Migraine without status migrainosus, not [...] type documented in this encounter Care Teams Health Services Manager Relationship Specialty Start Date End Date Delonte Marin MD [address] [facility] [address] [place] [address] PCP - General Podiatry 08/23/15 documented as of this encounter
--- OUTSIDE RECORDS SUMMARY | 2024-11-30 10:18 | XMS_ITS | Encounter Summary ---
Author Organization [employer] Address [address] [place], [place] [address] Care Team Providers Care Abrasive Grinder Name Role Phone Delonte Marin MD Primary Care Provider +1- [phone] Reason for Visit * Reason Onset Date Comments Referral 02/13/2019 Encounter Details Date Type Department Care Team ([facility] st Contact Info) Description 02/13/2019 Telephone [facility] [address] [address] Deborah Ramos, RN [address] [place] [address] Referral Social History Tobacco Use Types Packs/Day Years [...] as of this encounter Miscellaneous Notes * Addendum Note - Deborah Ramos RN - 03/13/2019 2:17 PM CDTAddended by: DEBORAH RAMOS on: 03/13/2019 02:17 PM Modules accepted: Orders * Telephone Encounter - Deborah Ramos RN - 03/13/2019 2:16 PM CDT Per VO Dr Johnston, wrist or thigh application. Script sent. Thanks. SAMIA Weber * Telephone Encounter - Deborah Ramos RN - 03/13/2019 9:25 AM CDT Do you want vaginal application? * Telephone Encounter - Benny Johnston DO - 03/13/2019 9:21 AM CDT OCCASIONALLY PROGESTERONE ALONE WILL HELP. COULD TRY 40 MG/0.1ML, SI.1ML PER DAY DURING CYCLE TIME OF MAXIMUM HEADACHE. IF THIS DOES NOT HELP WE CAN ADD BIEST. THANKS. BRIAN * Telephone Encounter - Deborah Ramos RN - 03/10/2019 4:35 PM CDT Phone call from patient, she would like to try hormone therapy. Please advise regarding dosing instructions. Thanks. SAMIA Weber * Telephone Encounter - Deborah Ramos RN - 02/26/2019 1:11 PM CDT Phone call to patient with recommendations. She vpu & would like to research this some. Did send out hormone pamphlets per patient request. She will contact us with her decision. Thanks. SAMIA Weber * Telephone Encounter - Benny Johnston DO - 02/26/2019 11:25 AM CDT She did discuss that to some degree may be hormone related. Addressing that we could look at trial of bio identical estrogen/progesterone combination for short period of cycle when headaches normallypeak. Thanks. BRIAN * Telephone Encounter - Deborah Ramos RN - 02/25/2019 10:44 AM CDT Phone call from patient. She decided not to go forward epidural. States she didn't like the idea of a needle in my neck . She has cancelled this. Requesting other options. Advised we had originally scheduled her for suboccipital inj, which she had cancelled to have epidural. She also would like toavoid this. Really not wanting any injections. Looking for a third option . She does have follow up scheduled /, but would like advice beforehand. Please advise. Thanks. SAMIA Weber * Telephone Encounter - Deborah Ramos RN - 02/17/2019 10:01 AM CDT Phone call to Lindsey with Dr Fabian's office. Set patient up for 02/26/19 at 1030 am with 10 am arrival time. Instructions NPO 2 hours prior to procedure and needs a rolloff driver. . . Order on desk to be signed. Pre cert for [employer] Initiated by their office with fiveday rafael period for decision. Phone call to patient with this information. She vpu. Scheduled for follow up 03/23 at 8 am per patient availability. Thanks. SAMIA Weber * Telephone Encounter - Deborah Ramos RN - 02/16/2019 3:15 PM CDT Received voicemail from patient regarding this request. Please advise. Thanks. SAMIA Weber * Telephone Encounter - Deborah Ramos RN - 02/13/2019 11:48 AM CDT Phone call from patient. She was seen this morning and is set up for suboccipital injections next Saturday. She would like to instead consider an epidural. I am not sure of the indicated level so wouldneed your advice regarding this for referral. Please advise. Thanks. SAMIA Weber documented in this encounter Plan of Treatment Not on file documented as of this encounter Goals Goal Patient Goal Type Associated Problems Recent Progress Patient-Stated? Author Use sunscreen daily Lifestyle No Divya Cr RN Frequent Skin Checks Lifestyle No Divya Cr RN documented as of this encounter Visit Diagnoses Not on filedocumented in this encounter Care Teams Abrasive Grinder Relationship Specialty [place] [address] [place] [address] [place] [address] PCP - General Podiatry 08/23/15 documented as of this encounter
--- OUTSIDE RECORDS SUMMARY | 2024-11-30 10:19 | XMS_ITS | Encounter Summary ---
Author Organization [employer] Address [address] [place] [address] Care Team Providers Care Property Economist Name Role Phone Delonte Marin MD Primary Care Provider +1- [phone] Encounter Details Date Type Department Care Team (Latest Contact Info) Description 11/13/2018 11:03 AM CERTIFIED BREASTFEEDING EDUCATOR - 11/13/2018 11:59 PM CERTIFIED BREASTFEEDING EDUCATOR Hospital Encounter [facility] [address] [place] [id number] Fatigue, unspecified type; Migraine without status migrainosus, not intractable, unspecified migraine type Discharge Disposition: Home - Discharge to Home [...] migraine type Take 1 tablet by mouth every 4 (four) hours as needed for Pain. 10 tablet 11/13/2018 9 nortriptyline (PAMELOR) 10 MG capsuleIndication s:Chronic migraine without aura without status migrainosus, not intractable Take 5 capsules by mouth nightly. . 150 capsule 6 11/04/2018 9 SUMAtriptan succinate (IMITREX) 100 MG tabletIndications :Migraine without status migrainosus, not intractable, unspecified migraine type Take 1 tablet by mouth as needed for Migraine. MAX 2 per day. 9 tablet 5 11/13/2018 9 documented as of this encounter Plan of Treatment Not on file documented as of this encounter Goals Goal Patient Goal Type Associated Problems Recent Progress Patient-Stated? Author Use sunscreen daily Lifestyle No Divya Cr RN Frequent Skin Checks Lifestyle No Divya Cr RN documented as of this encounter Procedures Procedure Name Priority Date/Time Associated Diagnosis Comments CBC AND DIFFERENTIAL Routine 11/13/2018 11:06 AM CERTIFIED BREASTFEEDING EDUCATOR Fatigue, unspecified type TSH Routine 11/13/2018 11:06 AM CERTIFIED BREASTFEEDING EDUCATOR Fatigue, unspecified type MAGNESIUM Routine 11/13/2018 11:06 AM CERTIFIED BREASTFEEDING EDUCATOR Migraine without status migrainosus, not intractable, unspecified migraine type COMPREHENSIVE METABOLIC PANEL Routine 11/13/2018 11:06 AM CERTIFIED BREASTFEEDING EDUCATOR Migraine without status migrainosus, not intractable, unspecified migraine type documented in this encounter Results * (ABNORMAL) Magnesium (11/13/2018 11:06 AM CERTIFIED BREASTFEEDING EDUCATOR) Magnesium 1.7(L) 1.8 - 2.4 mg/dL 11/13/2018 1:07 PM CERTIFIED BREASTFEEDING EDUCATOR [facility] Serum specimen (specimen) BLOOD SPECIMEN / Unknown 11/13/2018 11:06 AM CERTIFIED BREASTFEEDING EDUCATOR 11/13/2018 12:35 PM CERTIFIED BREASTFEEDING EDUCATOR us Delonte Marin MD LAB BLOOD ORDERABLES Final Result [facility] [address] [place], [place] * Comprehensive metabolic panel (11/13/2018 11:06 AM CERTIFIED BREASTFEEDING EDUCATOR) Sodium 139 136 - 145 mmol/L 11/13/2018 1:07 PM [facility] Potassium 3.7 3.5 - 5.1 mmol/L 11/13/2018 1:07 PM [facility] Chloride 103 98 - 107 mmol/L 11/13/2018 1:07 PM [facility] CO2 27 21 - 32 mmol/L 11/13/2018 1:07 PM [facility] Glucose 102 74 - 106 mg/dL 11/13/2018 1:07 PM [facility] BUN 13 7.0 - 18.0 mg/dL 11/13/2018 1:07 PM [facility] Creatinine 0.75 0.55 - 1.02 mg/dL 11/13/2018 1:07 PM [facility] Calcium 8.8 8.5 - 10.1 mg/dL 11/13/2018 1:07 PM [facility] Total Protein 7.2 6.4 - 8.2 g/dL 11/13/2018 1:07 PM [facility] Albumin 4.1 3.4 - 5.0 g/dL 11/13/2018 1:07 PM [facility] Bilirubin Total 0.3 0.2 - 1.0 mg/dL 11/13/2018 1:07 PM [facility] Alkaline Phosphatase 51 42 - 98 U/L 11/13/2018 1:07 PM [facility] AST 16 15 - 37 U/L 11/13/2018 1:07 PM [facility] ALT 20 14 - 59 U/L 11/13/2018 1:07 PM [facility] Creatinine Based eGFR >60 11/13/2018 1:07 PM [facility] Comment: GFR REFERENCE RANGE: >60 mL/min/1.73m2 -- An eGFR of > than, or = to 60, may indicate normal renal function or mildly decreased GFR. EGFR /Ecuadorean >60 11/13/2018 1:07 PM [facility] Comment: -- An eGFR of > than, or = to 60, may indicate normal renal function or mildly decreased GFR. Serum specimen (specimen) 11/13/2018 11:06 AM CERTIFIED BREASTFEEDING EDUCATOR 11/13/2018 12:35 PM CERTIFIED BREASTFEEDING EDUCATOR us Delonte Marin MD LAB BLOOD ORDERABLES Final Result [facility] [address] [place] * CBC and differential (11/13/2018 11:06 AM CERTIFIED BREASTFEEDING EDUCATOR) WBC 5.32 4.00 - 11.00 th/mm3 11/13/2018 11:23 AM [facility] [employer] RBC 4.16 3.80 - 5.80 mill/mm3 11/13/2018 11:23 AM [facility] [employer] [facility] HGB 12.9 11.5 - 16.5 g/dL 11/13/2018 11:23 AM [facility] [employer] [facility] HCT 37.9 37.0 - 47.0 % 11/13/2018 11:23 AM [facility] [employer] [facility] MCV 91.1 76 - 99 fL 11/13/2018 11:23 AM [facility] [employer] [facility] MCH 31.0 27.0 - 32.0 pg 11/13/2018 11:23 AM [facility] [employer] [facility] MCHC 34.0 30.0 - 35.0 g/dL 11/13/2018 11:23 AM [facility] [employer] [facility] Platelets 210 135 - 470 th/mm3 11/13/2018 11:23 AM [facility] [employer] [facility] RDW 11.4 11.0 - 17.0 % 11/13/2018 11:23 AM [facility] MPV 10.3 8.0 - 12.5 fL 11/13/2018 11:23 AM [facility] Differential Type AUTOMATED DIFFERENTIAL 11/13/2018 11:23 AM [facility] Neutrophil % 59.6 45.0 - 75.0 % 11/13/2018 11:23 AM [facility] Lymphocytes % 28.0 20.0 - 45.0 % 11/13/2018 11:23 AM [facility] Monocyte % 6.4 0.0 - 10.0 % 11/13/2018 11:23 AM [facility] Eosinophils Relative % 4.9 0.0 - 5.0 % 11/13/2018 11:23 AM [facility] Basophils % 0.9 0.0 - 2.0 % 11/13/2018 11:23 AM [facility] Immature Granulocytes% 0.2 0.0 - 1.6 % 11/13/2018 11:23 AM [facility] Neutrophils Absolute 3.17 2.00 - 7.90 th/mm3 11/13/2018 11:23 AM [facility] Lymphocytes Absolute 1.49 1.00 - 4.00 th/mm3 11/13/2018 11:23 AM [facility] Monos Absolute 0.34 0.00 - 0.80 th/mm3 11/13/2018 11:23 AM [facility] Eosinophils Absolute Count 0.26 0.00 - 0.40 th/mm3 11/13/2018 11:23 AM [facility] Basophils Absolute 0.05 0.00 - 0.10 th/mm3 11/13/2018 11:23 AM [facility] Immature Granulocytes Absolute 0.01 0.0 - 0.20 th/mm3 11/13/2018 11:23 AM [facility] Serum specimen (specimen) BLOOD SPECIMEN / Unknown 11/13/2018 11:06 AM CERTIFIED BREASTFEEDING EDUCATOR 11/13/2018 11:08 AM CERTIFIED BREASTFEEDING EDUCATOR us Delonte Marin MD LAB BLOOD ORDERABLES Final Result [facility] [address] [place], [place] * TSH (11/13/2018 11:06 AM CERTIFIED BREASTFEEDING EDUCATOR) TSH 2.03 0.36 - 3.74 m[IU]/L 11/13/2018 11:50 AM CERTIFIED BREASTFEEDING EDUCATOR [email or web address] Serum specimen (specimen) BLOOD SPECIMEN / Unknown 11/13/2018 11:06 AM CERTIFIED BREASTFEEDING EDUCATOR 11/13/2018 11:08 AM CERTIFIED BREASTFEEDING EDUCATOR us Delonte Marin MD LAB BLOOD ORDERABLES Final Result [email or web address] [address] [place], [place] documented in this encounter Visit Diagnoses Diagnosis Fatigue, unspecified type Migraine without status migrainosus, not intractable, unspecified migraine type documented in this encounter Care Teams Property Economist Relationship Specialty Start Date End Date Delonte Marin MD [address] [place] [address] [address] [place] [address] PCP - General Podiatry 08/23/15 documented as of this encounter
--- OUTSIDE RECORDS SUMMARY | 2024-11-30 10:19 | XMS_ITS | Encounter Summary ---
Author Organization [employer] Address [address] [place] [address] Care Team Providers Care Computer Technology Trainer Name Role Phone Delonte Marin MD Primary Care Provider [phone]- [phone] Encounter Details Date Type Department Care Team (Late st Contact Info) Description 11/21/2018 12:30 PM DAILY SALES AUDIT CLERK Office Visit [facility] [address] [place] [phone] Tom Hughes, PT [address] [place] [address] Tight fascia; Decreased ROM of neck; Chronic neck pain; Neck muscle spasm Social History Tobacco Use [...] as of this encounter Progress Notes * Tom Hughes, PT - 11/21/2018 12:30 PM CST Daily Referring Provider: Jb Evaluating Therapist: Tom Hughes PT, DPT, PES Supervising Therapist: Tom Hughes PT, DPT, PES Activity Limitation/Participation Restriction: sleeping, driving, and ADL Referring Diagnosis: Chronic neck pain; Neck muscle spasm Treatment Diagnosis: Chronic neck pain; Neck muscle spasm; tight fascia; decreased neck ROM Patient Subjective Report: Pt reports her headaches continue to improve. Pain: 1/10 prior to treatment and 0/10 after treatment Communication With Other Providers: none Objective Measures: 90% C/S AROM in all directions without symptom provocation Response To Treatment: Patient presents today in good spirits with minimal complaints. Manual and STM performed in seated position 2nd to patient experiencing discomfort in prone. Continued with Manual and STM to C/S and thoracic girdle. Tissues continue to loosen with improved ease of movement. Pat ient making steady progress towards goals at this time. STG'S to be achieved in 2 weeks : 1. Pt will be instructed in HEP and demonstrate good understanding. - partially met, ongoing 2. Pt will achieve full cervical motion in all directions s pain. - partially met, 90% in all directions 3. Pt will improve MMT to 5/5 in B UE. 4. Pt will improve mid and low trap MMT to 5/5. LTG'S to be achieved in 4 weeks : 1. Pt will be compliant and I in HEP. 2. Pt will be able to sleep, drive, ADL without deficits to return to PLOF. Plan: Continue skilled PT to improve motion, strength, and functional activities to return to PLOF. Timed Minutes: 30 min Manual and STM to reduce fascial restrictions, increase spinal mobility and decrease pain Untimed Minutes: 0 min Total Treatment Time: 30 min Exercise Flow Sheet Referring provider:Jb RTD: 01-05-18 Contraindications: n/a End POC date: 12-08-18 Onset date: chronic Insurance Information: [employer] Date: 11-07-18 11-13-18 11-17-18 11-21-18 Visit Type: foto daily daily daily foto foto 10th visit Visit Number: 1 2 3 4 Clinician: MTT MTT MTT MTT Therex Supine on /2 foam HEP Neuro Gait Theract Manual 15 min 30 min 20 min 30 min Modalities Y SALES AUDIT CLERK documented in this encounter Plan of Treatment Not on file documented as of this encounter Goals Goal Patient Goal Type Associated Problems Recent Progress Patient-Stated? Author Use sunscreen daily Lifestyle No Divya Cr, RN Frequent Skin Checks Lifestyle Divya Grace, RN documented as of this encounter Visit Diagnoses Diagnosis Tight fascia Unspecified disorder of muscle, ligament, and fascia Decreased ROM of neck Chronic neck pain Cervicalgia Neck muscle spasm Spasm of muscle documented in this encounter Care Teams Computer Technology Trainer Relationship Specialty Start Date End Date Delonte Marin MD [address] [facility] [address] [place] [address] PCP - General Podiatry 08/23/15 documented as of this encounter
--- OUTSIDE RECORDS SUMMARY | 2024-11-30 10:19 | XMS_ITS | Encounter Summary ---
Author Organization [employer] Address [address] [place] [address] Care Team Providers Care Tip Banding Machine Operator Name Role Phone Delonte Marin MD Primary Care Provider +1- [phone] Encounter Details Date Type Department Care Team (Late st Contact Info) Description 11/13/2018 8:00 AM GRAIN FARMWORKER Office Visit [facility] Physical Therapy [address] [place] [phone] Elías Muhammad DO [address] [place] [address] [place] [address] [place] [address] Tight fascia; Decreased ROM of neck; [...] Progress Notes * Tom Hughes, PT - 11/13/2018 8:00 AM CST Daily Referring Provider: Jb Evaluating Therapist: Tom Hughes PT, DPT, PES Supervising Therapist: Tom Hughes PT, DPT, PES Activity Limitation/Participation Restriction: sleeping, driving, and ADL Referring Diagnosis: Chronic neck pain; Neck muscle spasm Treatment Diagnosis: Chronic neck pain; Neck muscle spasm; tight fascia; decreased neck ROM Patient Subjective Report: Patient reports some relief following last visit. Pain: 4/10 prior to treatment and 3/10 after treatment Communication With Other Providers: none Objective Measures: upright posture with minimal posterior cervical strain Response To Treatment: Patient presents today in good spirits with continued complaints of neck pain. Manual and STM effectively reduced fascial restrictions and improved suboccipital tissue integrity. Patient denied onset of symptom provocation during and after tx. Encouraged patient to pay attention to any symptom changes until next visit. PVU. STG'S to be achieved in 2 weeks : 1. Pt will be instructed in HEP and demonstrate good understanding. 2. Pt will achieve full cervical motion in all directions s pain. 3. Pt will improve MMT to 5/5 [...] date: 12-08-18 Onset date: chronic Insurance Information: [facility] Date: 11-07-18 11-13-18 Visit Type: foto daily foto foto 10th visit Visit Number: 1 2 Clinician: JESSE Thomason Neuro Gait Theract Manual 15 min 30 min Modalities N FARMWORKER documented in this encounter Plan of Treatment Not on file documented as of this encounter Goals Goal Patient Goal Type Associated Problems Recent Progress Patient-Stated? Author Use sunscreen daily Lifestyle Divya Grace, RN Frequent Skin Checks Lifestyle Divya Grace, RN documented as of this encounter Visit Diagnoses Diagnosis Tight fascia Unspecified disorder of muscle, ligament, and fascia Decreased ROM of neck Chronic neck pain Cervicalgia Neck muscle spasm Spasm of muscle documented in this encounter Care Teams Tip Banding Machine Operator Relationship Specialty Start Date End Date Delonte Marin MD [address] [facility] [address] [place] [address] PCP - General Podiatry 08/23/15 documented as of this encounter
--- OUTSIDE RECORDS SUMMARY | 2024-11-30 10:19 | XMS_ITS | Encounter Summary ---
Author Organization [employer] Address [address] [place], [place] [id number] Care Team Providers Care Sales Engagement Manager Name Role Phone Delonte Marin MD Primary Care Provider +1- [phone] Reason for Visit * Referral (Routine) - Closed Specialty Diagnoses / Procedures Referred By Tommie jara Referred To Contact Physical Therapy Diagnoses Chronic neck pain Neck muscle spasm Elías Muhammad, [address] [place] [address] Phone: tel: fax: Natacha Serrano, PT [address] [place] [address] Phone: tel: Referral ID Status Reason Start Date Expiration Date V isits Requested Visits Authorized [id number] Closed Specialty Services Required 11/03/2018 11/03/2019 1 1 Encounter Details Date Type Department Care Team (Late st Contact Info) Description 11/07/2018 9:00 AM GUIDE PLANT Office Visit [facility] Physical Therapy [address] [place] [phone] Elías Muhammad DO [address] [place] [address] Tom Hughes, PT [address] [place] [address] Chronic neck pain (Primary Dx); Neck muscle spasm; Tight fascia; Decreased ROM of neck Social History Tobacco Use Types Packs/Day Years [...] Progress Notes * Tom Hughes, PT - 11/07/2018 9:00 AM CST PT EVALUATION Referring Provider: Jb Evaluating Therapist: Tom Hughes PT, DPT, PES Supervising Therapist: Tom Hughes PT, DPT, PES Activity Limitation/Participation Restriction: sleeping, driving, and ADL Referring Diagnosis: Chronic neck pain; Neck muscle spasm Treatment Diagnosis: Chronic neck pain; Neck muscle spasm; tight fascia; decreased neck ROM Patient Subjective Report/JOE: Patient presents today with neck pain. Patient denies any eliciting events and describes the pain as chronic and insidious in nature. Patient reports the pain started 6months ago. Pain: 5/10 prior to treatment and 4/10 after treatment Communication With Other Providers: none Objective Measures: see below Response To Treatment: n/a STG'S to be achieved in 2 weeks [...] activities to return to PLOF. Timed Minutes: 15 min Manual and STM to reduce fascial restrictions, increase spinal mobility and decrease pain Untimed Minutes: 30 min Initial Evaluation Total Treatment Time: 45 min I certify the need for these services under this plan of treatment and while under my care. Elías Muhammad Thank you for allowing us to assist you in the care of this patient. Professionally, Tom Hughes, PT SUBJECTIVE Onset Date: chronic Follow up provider visit: 01-05-19 Patient Goal for Therapy: resolve pain and return to PLOF Prior Level of Function: Pt ambulates with no AD. Pt performs ADLS with no (A). Pt requires no (A) within the home. Hand Dominance: Right Employer: unemployed Environmental Barriers: none Special Accommodations Currently Required: none Medical History: BMI: Estimated body mass index is 25.08 kg/m?? as calculated from the following: Height as of 09/09/18: 1.676 m (5' 6 ). Weight as of 10/23/18: 70.5 kg (155 lb 6.4 oz). Seen and reviewed from chart Past Medical History: Diagnosis Date ??? Acute sinusitis ??? Carpal tunnel syndrome ??? Gastroenteritis ??? Headache ??? Migraines ??? Panic attack Imaging: Name: MICHELLE GOMEZ ? Ordering Phys: DELONTE ADKINS Age: 33 ?Date of : 1985 ? Accession Number: [id number] Date of Service:08/19/2018 ?? Gender: F ?? [...] grade 1 anterolisthesis of C3 on C4. Surgical History That Impacts POC: Past Surgical History: Procedure Laterality Date ??? Carpal tunnel release Left 09/12/2015 Left hand carpal tunnel release./Justin ??? Carpal tunnel release Right 10/24/2015 Right hand carpal tunnel release./Dale ??? Foot surgery Left bunionectomy Therapy History For This Condition: none Medication Review: Current Outpatient Prescriptions: ??? lzdsjjblvj-xbsrejyqctvfd-mqhmdgse (FIORICET, ESGIC) 50-325-40 MG per tablet, Take 1 tablet by mouth every 4 (four) hours as needed for Pain., Disp: 10 tablet, Rfl: 0 ??? levonorgestrel (MIRENA, 52 MG,) 20 MCG/24HR IUD, 1 each by Intrauterine route every five (5) years., Disp: , Rfl: ??? metaxalone (SKELAXIN) 800 MG tablet, 1 tab oral three times daily for neck pain and spasm., Disp: 30 tablet, Rfl: 0 ??? naratriptan (AMERGE) 2.5 MG tablet, Take 1 tablet by mouth as needed for Migraine. 2.5 mg at onset of headache, may repeat in 4 hours if needed, Disp: 5 tablet, Rfl: 3 ??? nortriptyline (PAMELOR) 10 MG capsule, Take 5 capsules by mouth nightly. ., Disp: 150 capsule, Rfl: 6 ??? SUMAtriptan succinate (IMITREX) 100 MG tablet, TAKE 1 TABLET BY MOUTH TWICE DAILY NEEDED, Disp: 9 tablet, Rfl: 0 OBJECTIVE MENTAL FUNCTIONS Global Mental Function: ??? Pt. is alert and oriented to person, place, and time. ??? Pt. does have the ability to make their needs known. ??? Pt. does not have issues with energy and drive that could affect the plan of care and outcomes ??? Pt. does not have issues with sleep that could affect the plan of care and outcomes Specific Mental Function: ??? Pt. does not have issues with attention that could affect the plan of care and outcomes ??? Pt. does not have issues with memory that could affect the plan of care and outcomes. SENSORY FUNCTIONS AND PAIN Sensation of Pain: ??? Pt. does have chief complaints of pain in neck/head o Pain Level: Current: 5/10, Worst: 7/10, Best: 3/10 o Nature of Pain: Pt describes pain as dull. o Pain is increased by ADL, increased activity o Pain is decreased by rest Range Of Motion: Cervical ROM: Left Right Flexion 80% Extension 80% Side Bend 80% 80% Rotation 75?? 60?? Strength: B UE MMT 4+/5 Sensation: Pt. does not exhibit numbness, tingling, burning, hyper/hypoesthesia in the B UE. Intactand equal to light touch B in upper and lower dermatomes. Appearance/Observation/Posture: FHP, bilat rounded shoulders Palpation: increased fascial restrictions throughout upper thoracic and C/S Standardized Test: FOTO 59; Outcome Measure: NDI 50% ASSESSMENT Personal Factors/Co-morbidities that Influence POC: time since onset, no known JOE BodyStructure/Function/Activity Limitations/Participation Restrictions: 2 Clinical Presentation: stable Rehab potential/prognosis: good PLAN Treatment Frequency: 1-2 x/wk x 4 wks. Treatment To Include: Therapeutic exercise to increase strength, range of motion, flexibility, endurance and Neuromuscular re-education to improve balance, coordination, kinesthetic sense, posture, proprioception. Manual therapy to improve joint and soft tissue restrictions. Anti-inflammatory modali ties as needed for pain relief. Mechanical traction to reduce pain, spasm, and/or distal symptoms. Aquatic therapy for motion, strengthening, and balance in gravity reduced environment. Education: Pt was educated in diagnosis, prognosis, heat/ice usage at home and HEP. A written program was given. Level Of Understanding: Pt demonstrated good understanding of diagnosis, prognosis, goals, plan, and HEP. Exercise Flow Sheet Referring provider:Jb RTD: 01-05-18 Contraindications: n/a End POC date: 12-08-18 Onset date: chronic Insurance Information: [facility] Date: 11-07-18 Visit Type: foto foto fo 10th visit Visit Number: 1 Clinician: JESSE Thomason Neuro Gait Theract Manual 15 min Modalities E PLANT * Elías Muhammad DO - 11/07/2018 9:00 AM CST I have reviewed the notes, assessments, and/or procedures performed by the treating physical therapist and I concur with the documentation of this patient. E PLANT documented in this encounter Plan of Treatment Scheduled Referrals Name Type Priority Associated Diagnoses Orde r Schedule Amb Ref to Physical Therapy Outpatient Referral Routine Chronic neck pain Neck muscle spasm Ordered: 11/03/2018 documented as of this encounter Goals Goal Patient Goal Type Associated Problems Recent Progress Patient-Stated? Author Use sunscreen daily Lifestyle No Divya Cr, RN Frequent Skin Checks Lifestyle No Divya Cr, RN documented as of this encounter Visit Diagnoses Diagnosis Chronic neck pain- Primary Cervicalgia Neck muscle spasm Spasm of muscle Tight fascia Unspecified disorder of muscle, ligament, and fascia Decreased ROM of neck documented in this encounter Care Teams Sales Engagement Manager Relationship Specialty Start Date End Date Delonte Marin MD [address] [place] [address] [place] [address] PCP - General Podiatry 08/23/15 documented as of this encounter
--- OUTSIDE RECORDS SUMMARY | 2024-11-30 10:19 | XMS_ITS | Encounter Summary ---
Author Organization [employer] Address [address] [place] [address] Care Team Providers Care Home Health Nurse Licensed Practical Name Role Phone Delonte Marin MD Primary Care Provider +1- [phone] Encounter Details Date Type Department Care Team (Late st Contact Info) Description 11/27/2018 9:00 AM C D AREA SUPERVISOR Office Visit [facility] Physical Therapy [address] [place] [address] Elías Muhammad DO [address] [place] [address] [place] [address] [place] [address] Tight fascia; Decreased ROM of neck; [...] Progress Notes * Tom Hughes, PT - 11/27/2018 9:00 AM CST Daily Referring Provider: Jb Evaluating Therapist: Tom Hughes PT, DPT, PES Supervising Therapist: Tom Hughes PT, DPT, PES Activity Limitation/Participation Restriction: sleeping, driving, and ADL Referring Diagnosis: Chronic neck pain; Neck muscle spasm Treatment Diagnosis: Chronic neck pain; Neck muscle spasm; tight fascia; decreased neck ROM Patient Subjective Report: Pt reports her headaches have not been bothersome lately. Pain: 1/10 prior to treatment and 0/10 after treatment Communication With Other Providers: none Objective Measures: 90% C/S AROM in all directions without symptom provocation Response To Treatment: Patient presents today in good spirits with no complaints of headaches. Treatment focus continued on improving upper thoracic and cervical mobility. Patient denied any symptom provocation during and after treatment. Initiated supine cervical retraction with towel roll. Patient required mod verbal cues to correctly perform. Added to HEP. Plan to discharge on Saturday if symptoms do not flare over the weekend. STG'S to be achieved in 2 weeks [...] activities to return to PLOF. Timed Minutes: 23 min Manual and STM to reduce fascial restrictions, increase spinal mobility and decrease pain; 3 min therex to increase strength, ROM and functional ability Untimed Minutes: 0 min Total Treatment Time: 26 min Exercise Flow Sheet Referring provider:Jb RTD: 01-05-18 Contraindications: n/a End POC date: 12-08-18 Onset date: chronic Insurance Information: [employer] Date: 11-07-18 11-13-18 11-17-18 11-21-18 11-27-18 Visit Type: foto daily daily daily foto foto 10th visit Visit Number: 1 2 3 4 5 Clinician: MTT MTT MTT MTT MTT Therex Supine on 11/19 foam HEP Supine C/S retraction HEP Neuro Gait Theract Manual 15 min 30 min 20 min 30 min 23 min Modalities C D AREA SUPERVISOR documented in this encounter Plan of Treatment [...] muscle documented in this encounter Care Teams Home Health Nurse Licensed Practical Relationship Specialty Start Date End Date Delonte Marin MD 14[address] [facility] [address] [place] [address] PCP - General Podiatry 08/23/15 documented as of this encounter
--- OUTSIDE RECORDS SUMMARY | 2024-11-30 10:19 | XMS_ITS | Encounter Summary ---
Author Organization [employer] Address [address] [place] [address] Care Team Providers Care Counter Manager Name Role Phone Delnote Marin MD Primary Care Provider +1- [phone] Reason for Visit * Reason Onset Date Comments Headache 11/04/2018 Encounter Details Date Type Department Care Team ([facility] st Contact Info) Description 11/04/2018 Telephone [facility] Neurology [address] [place] [address] Octavia Root, [facility] [address] [place] [address] Headache Social History Tobacco Use Types Packs/Day Years [...] Miscellaneous Notes * Telephone Encounter - Octavia Root, [facility] - 11/04/2018 1:26 PM RESEARCH ASSISTANT PROFESSOR ----- Message from Lindsey Gutierrez sent at 11/04/2018 8:24 AM RESEARCH ASSISTANT PROFESSOR ----- Contact: pt Provider: REESE cisse: headache for 10 days Is the patient active on MyChart: No Has the patient called or been called about this issue: This is a first call for this issue. Patient has had headache for 10 days, would like a call back to discuss. I discussed with Dr. Benton and he will prescribe Fioricet and increased Nortriptyline to 50 mg at bedtime. ANA MARÍA Cruz ARCH ASSISTANT PROFESSOR ARCH ASSISTANT PROFESSOR documented in this encounter Plan of Treatment [...] migrainosus documented in this encounter Care Teams Counter Manager Relationship Specialty [place] [address] [place] [address] [place] [address] PCP - General Podiatry 08/23/15 documented as of this encounter
--- OUTSIDE RECORDS SUMMARY | 2024-11-30 10:19 | XMS_ITS | Encounter Summary ---
Author Organization [employer] Address [address] [place] [address] Care Team Providers Care Configuration Management Manager Name Role Phone Delonte Marin MD Primary Care Provider +1- [phone] Encounter Details Date Type Department Care Team (Late st Contact Info) Description 12/29/2018 9:00 AM GREASE MAN Office Visit [facility] Physical Therapy [address] [place] [address] Elías Muhammad DO [address] [place] [address] [place] [address] [place] [address] Tight fascia; Decreased ROM of neck; [...] Progress Notes * Briana Mc, PT - 12/29/2018 9:00 AM CST Recert Referring Provider: Jb Evaluating Therapist: Tom Hughes PT, DPT, PES Supervising Therapist: Tom Hughes PT, SWATHI, PES Activity Limitation/Participation Restriction: sleeping, driving, and ADL Referring Diagnosis: Chronic neck pain; Neck muscle spasm Treatment Diagnosis: Chronic neck pain; Neck muscle spasm; tight fascia; decreased neck ROM Patient Subjective Report: Pt reports 3-4 headaches last week, but hasn't been into physical therapy due to missed visits. States when she was coming regularly her headaches were better. Patient states stiffness in her neck today, no PERERA, no pain. Pain: 0/10 prior to treatment and 0/10 after treatment Communication With Other Providers: none Objective Measures: post: 90% C/S AROM with stiffness Response To Treatment: Patient presents with mild restrictions with AROM cervical spine without pain, but just stiffness noted. Multiple tender points noted anterior and posterior cervical chain. Noted reduction in tender points and associated muscle spasms.. Improved AROM noted post session without restrictions. STG'S to be achieved in 2 weeks [...] deficits to return to PLOF. - MET Plan: Continue skilled PT to improve motion, strength, and functional activities to return to PLOF. Timed Minutes: 24 min Manual strain counterstrain to eliminate tender points and associated muscle spasm to improve ROM Untimed Minutes: 0 min Total Treatment Time: 24 min Exercise Flow Sheet Referring provider:Jb RTD: 01-05-18 Contraindications: n/a End POC date: 12-08-18 Onset date: chronic Insurance Information: [employer] Date: 11-07-18 11-13-18 11-17-18 11-21-18 11-27-18 12-04-18 12-16-18 12/29/18 Visit Type: foto daily daily daily foto recert recert daily foto 10th visit Visit Number: 1 2 3 4 5 6 7 8 Clinician: MTT MTT MTT MTT MTT MTT MTT LCW Therex Supine on 11/19 foam HEP Supine C/S retraction HEP S/L T/S stretch HEP Neuro Gait Theract Manual 15 min 30 min 20 min 30 min 23 min 30 min 20 min 24 min SCS Modalities SE MAN documented in this encounter Plan of Treatment [...] muscle documented in this encounter Care Teams Configuration Management Manager Relationship Specialty [place] [address] [place] [address] [place] [address] PCP - General Podiatry 08/23/15 documented as of this encounter
--- OUTSIDE RECORDS SUMMARY | 2024-11-30 10:19 | XMS_ITS | Encounter Summary ---
Author Organization [employer] Address [address] [place] [address] Care Team Providers Care Financial Recruiter Name Role Phone Delonte Marin MD Primary Care Provider +1- [phone] Reason for Visit * Reason Onset Date Comments Headache 11/17/2018 Encounter Details Date Type Department Care Team ([facility] st Contact Info) Description 11/17/2018 Telephone [facility] Neurology [address] [place] [address] Octavia Root, [facility] [address] [place] [address] Headache Social History Tobacco Use [...] Notes * Telephone Encounter - Octavia Root, [facility] - 11/17/2018 11:57 AM MANAGER ADULT ----- Message from Lindsey Gutierrez sent at 11/17/2018 8:54 AM MANAGER ADULT ----- Contact: pt left message Provider: REESE cisse: migraine Is the patient active on MyChart: No Phone: Has the patient called or been called about this issue: This is a third call for this issue. Patient left message stating this was her third call with no call back. She has had a headache for several weeks and her meds are not working. Patient stated increase of Nortriptyline and fioricet is not helping headahces, sooner APT scheduled with Dr. Cisse. ANA MARÍA Cheng GER ADULT GER ADULT documented in this encounter Plan of Treatment Not on file documented as of this encounter Goals Goal Patient Goal Type Associated Problems Recent Progress Patient-Stated? Author Use sunscreen daily Lifestyle No Divya Cr, RN Frequent Skin Checks Lifestyle No Divya Cr, RN documented as of this encounter Visit Diagnoses Not on filedocumented in this encounter Care Teams Financial Recruiter Relationship Specialty [place] [address] [place] [address] [place] [address] PCP - General Podiatry 08/23/15 documented as of this encounter
--- OUTSIDE RECORDS SUMMARY | 2024-11-30 10:19 | XMS_ITS | Encounter Summary ---
Author Organization [employer] Address [address] [place] [address] Care Team Providers Care Director Distribution Name Role Phone Delonte Marin MD Primary Care Provider +1- [phone] Encounter Details Date Type Department Care Team (Late st Contact Info) Description 11/17/2018 8:30 AM CARDIOVASCULAR INVASIVE SPECIALIST Office Visit [facility] Physical Therapy [address] [place] [address] Elías Muhammad DO [address] [place] [address] [place] [address] [place] [address] Tight fascia; Decreased ROM of neck; [...] Progress Notes * Tom Hughes, PT - 11/17/2018 8:30 AM CST Daily Referring Provider: Jb Evaluating Therapist: Tom Hughes PT, DPT, PES Supervising Therapist: Tom Hughes PT, DPT, PES Activity Limitation/Participation Restriction: sleeping, driving, and ADL Referring Diagnosis: Chronic neck pain; Neck muscle spasm Treatment Diagnosis: Chronic neck pain; Neck muscle spasm; tight fascia; decreased neck ROM Patient Subjective Report: Patient reports she has felt good the past two days. Pain: 3/10 prior to treatment and 2/10 after treatment Communication With Other Providers: none Objective Measures: upright posture with minimal posterior cervical strain Response To Treatment: treatment focus on improving thoracic mobility. Manual and STM to bilat T/S and lower C/S effectively reduced fascial restrictions. Patient noted a decrease in tension throughout upper back and neck. Initiated supine therex on 1/2 foam to promote correct posture. Pt denied any symptom provocation during and after tx. STG'S to be achieved in 2 weeks [...] activities to return to PLOF. Timed Minutes: 20 min Manual and STM to reduce fascial restrictions, increase spinal mobility and decrease pain; 10 min therex to promote correct posture and increase scapular strength. Untimed Minutes: 0 min Total Treatment Time: 30 min Exercise Flow Sheet Referring provider:Jb RTD: 01-05-18 Contraindications: n/a End POC date: 12-08-18 Onset date: chronic Insurance Information: [employer] [place] Date: 11-07-18 11-13-18 11-17-18 Visit Type: foto daily daily foto foto 10th visit Visit Number: 1 2 3 Clinician: JESSE MTT MTT Therex Supine on 1/2 foam HEP Neuro Gait Theract Manual 15 min 30 min 20 min Modalities IOVASCULAR INVASIVE SPECIALIST documented in this encounter Plan of [...] muscle documented in this encounter Care Teams Director Distribution Relationship Specialty Start Date End Date Delonte Marin MD 14[address] [facility] [address] [place] [address] PCP - General Podiatry 08/23/15 documented as of this encounter
--- OUTSIDE RECORDS SUMMARY | 2024-11-30 10:19 | XMS_ITS | Encounter Summary ---
Author Organization [employer] Address [address] [place] [address] Care Team Providers Care Clinical Technician Name Role Phone Delonte Marin MD Primary Care Provider +1- [phone] Encounter Details Date Type Department Care Team (Late st Contact Info) Description 12/31/2018 9:00 AM SHEETER WAXER OPERATOR Office Visit [facility] Physical Therapy [address] [place] [address] Elías Muhammad DO [address] [place] [address] [place] [address] [place] [address] Tight fascia; Decreased ROM of neck; [...] Progress Notes * Tom Hughes, PT - 12/31/2018 9:00 AM CST Daily Referring Provider: Jb Evaluating Therapist: Tom Hughes PT, DPT, PES Supervising Therapist: Tom Hughes PT, DPT, PES Activity Limitation/Participation Restriction: sleeping, driving, and ADL Referring Diagnosis: Chronic neck pain; Neck muscle spasm Treatment Diagnosis: Chronic neck pain; Neck muscle spasm; tight fascia; decreased neck ROM Patient Subjective Report: Pt reports she hasn't had any headaches since Saturday Pain: 0/10 prior to treatment and 0/10 after treatment Communication With Other Providers: none Objective Measures: post: 90% C/S AROM with stiffness Response To Treatment: Patient presents today in good spirits with no complaints of headaches sinceMond. Continued stiffness throughout posterior neck reported. Treatment focused on improving thoracic spine and tissue mobility. Manual and STM effectively reduced fascial restrictions and improvedtissue mobility without any significant discomfort. Patient noted increased ease of shoulder blade movement and less stress and tension in mid back. Plan is to continue with SCS and manual treatmentsfollowed by strengthening and stabilization exercises. Patient remains motivated with current POC and complaint with HEP. STG'S to be achieved in 2 weeks [...] date: 12-08-18 Onset date: chronic Insurance Information: [employer] Date: 11-07-18 11-13-18 11-17-18 11-21-18 11-27-18 12-04-18 12-16-18 12/29/18 12-31-18 Visit Type: foto daily daily daily foto recert recert daily foto 10th visit Visit Number: 1 2 3 4 5 6 7 8 9 Clinician: MTT MTT MTT MTT MTT MTT MTT LCW MTT Therex Supine on 11/19 foam HEP Supine C/S retraction HEP S/L T/S stretch HEP Neuro Gait Theract Manual 15 min 30 min 20 min 30 min 23 min 30 min 20 min 30 min Modalities [address] WAXER OPERATOR documented in this encounter Plan of [...] muscle documented in this encounter Care Teams Clinical Technician Relationship Specialty [place] [address] [place] [address] [place] [address] PCP - General Podiatry 08/23/15 documented as of this encounter
--- OUTSIDE RECORDS SUMMARY | 2024-11-30 10:19 | XMS_ITS | Encounter Summary ---
Author Organization [employer] Address [address] [place] [address] Care Team Providers Care Prison Warden Name Role Phone Delonte Marin MD Primary Care Provider +1- [phone] Reason for Visit * Reason Onset Date Comments Medication Refill 12/12/2018 Encounter Details Date Type Department Care Team ([facility] st Contact Info) Description 12/12/2018 Telephone [facility] Neurology [address] [place] [phone] [place] [address] [place] [address] Medication Refill Social History Tobacco Use [...] Telephone Encounter - Martha Hill RN - 12/12/2018 11:54 AM [facility]UR DRUMMER PC from patient requesting refill on fioricet and increase in her nortriptyline. Discussed with and changed medication orders. CCRN DRUMMER documented in this encounter Plan of Treatment Not on file documented as of this encounter Goals Goal Patient Goal Type Associated Problems Recent Progress Patient-Stated? Author Use sunscreen daily Lifestyle No Gander, Divya B, RN Frequent Skin Checks Lifestyle No Divya Cr RN documented as of this encounter Visit Diagnoses Diagnosis Migraine without status migrainosus, not intractable, unspecified migraine type Chronic migraine without aura without status migrainosus, not intractable Chronic migraine without aura, without mention of intractable migraine without mention of status migrainosus documented in this encounter Care Teams Prison Warden Relationship Specialty [place] [address] [place] [address] 2049 [place] [address] PCP - General Podiatry 08/23/15 documented as of this encounter
--- OUTSIDE RECORDS SUMMARY | 2024-11-30 10:19 | XMS_ITS | Encounter Summary ---
Author Organization [employer] Address [address] [place] [address] Care Team Providers Care Bulk Mail Clerk Name Role Phone Delonte Marin MD Primary Care Provider +1- [phone] Encounter Details Date Type Department Care Team (Late st Contact Info) Description 12/16/2018 9:00 AM GENERAL ASSEMBLER Office Visit [facility] Physical Therapy [address] [place] [address] Elías Muhammad DO [address] [place] [address] [place] [address] [place] [address] Tight fascia; Decreased ROM of neck; [...] Progress Notes * Tom Hughes, PT - 12/16/2018 9:00 AM CST Recert Referring Provider: Jb Evaluating Therapist: Tom Hughes PT, DPT, PES Supervising Therapist: Tom Hughes PT, DPT, PES Activity Limitation/Participation Restriction: sleeping, driving, and ADL Referring Diagnosis: Chronic neck pain; Neck muscle spasm Treatment Diagnosis: Chronic neck pain; Neck muscle spasm; tight fascia; decreased neck ROM Patient Subjective Report: Pt reports she had a headache the past two days, but have otherwise feltbetter. Pain: 1/10 prior to treatment and 0/10 after treatment Communication With Other Providers: none Objective Measures: 90% C/S AROM in all directions without symptom provocation Response To Treatment: Patient presents today with increased symptoms and tightness in neck. Reported her symptoms gradually returned and were provoked after bowling and painting. Plan to have patient seen by Briana Mc, PT, DPT once a week for SCS treatment. Patient comfortable with this plan and remains motivated with PT. STG'S to be achieved in 2 weeks [...] and decrease pain; 10 min therex to increase strength, ROM and functional ability Untimed Minutes: 0 min Total Treatment Time: 30 min Start Of Care: 11-07-19 Visits From Start Of Care: 6 visits Recertification Dates: 12-16-18 to 01-14-19 Service Dates: 11-07-18 to 12-16-18 Reason For Continuing Treatment: Patient continues to demonstrate deficits in strength, ROM, endurance and functional ability that limits return to PLOF. Patient would benefit from continued and skilled PT to address previously listed deficits to ensure a full return to PLOF. Treatment Plan Revision: No revisions necessary. I certify the need for these skilled services under this plan of treatment and while under my care. [place] Exercise Flow Sheet Referring provider:Jb RTD: 01-05-18 Contraindications: n/a End POC date: 12-08-18 Onset date: chronic Insurance Information: [employer] Date: 11-07-18 11-13-18 11-17-18 11-21-18 11-27-18 12-04-18 12-16-18 Visit Type: foto daily daily daily foto recert recert foto 10th visit Visit Number: 1 2 3 4 5 6 7 Clinician: MTT MTT MTT MTT MTT MTT MTT Therex Supine on 11/19 foam HEP Supine C/S retraction HEP S/L T/S stretch HEP Neuro Gait Theract Manual 15 min 30 min 20 min 30 min 23 min 30 min 20 min Modalities RAL ASSEMBLER documented in this encounter Plan of Treatment [...] muscle documented in this encounter Care Teams Bulk Mail Clerk Relationship Specialty Start Date End Date Delonte Marin MD 14[address] [facility] [address] [place] [address] PCP - General Podiatry 08/23/15 documented as of this encounter
--- OUTSIDE RECORDS SUMMARY | 2024-11-30 10:19 | XMS_ITS | Encounter Summary ---
Author Organization [employer] Address [address] [place], [place] [address] Care Team Providers Care Supplier Quality Engineering Manager Name Role Phone Delonte Marin MD Primary Care Provider +1- [phone] Reason for Visit * Reason Comments Medication Refill Encounter Details Date Type Department Care Team (Late st Contact Info) Description 11/04/[address] [place] [address] Delonte Marin MD [address] [place] [address] [address] [place] [address] Social History Tobacco Use Types [...] on filedocumented in this encounter Care Teams Supplier Quality Engineering Manager Relationship Specialty Start Date End Date Delonte Marin MD [address] [place] [address] [address] [place] [address] PCP - General Podiatry 08/23/15 documented as of this encounter
--- OUTSIDE RECORDS SUMMARY | 2024-11-30 10:19 | XMS_ITS | Encounter Summary ---
Author Organization [employer] Address [address] [place] [address] Care Team Providers Care Press Set Up Name Role Phone Delonte Marin MD Primary Care Provider +1- [phone] Encounter Details Date Type Department Care Team (Late st Contact Info) Description 01/05/2019 9:00 AM BATCH WEIGHER Office Visit [facility] Physical Therapy [address] [place] [address] Elías Muhammad DO [address] [place] [address] [place] [address] [place] [address] Tight fascia; Decreased ROM of neck; [...] Progress Notes * Briana Mc, PT - 01/05/2019 9:00 AM CST Daily Referring Provider: Jb Evaluating Therapist: Tom Hughes PT, JIMMIET, PES Supervising Therapist: Tom Hughes PT, SWATHI, PES Activity Limitation/Participation Restriction: sleeping, driving, and ADL Referring Diagnosis: Chronic neck pain; Neck muscle spasm Treatment Diagnosis: Chronic neck pain; Neck muscle spasm; tight fascia; decreased neck ROM Patient Subjective Report: Pt reports she has had pretty bad headache over the weekend. Pain: 0/10 prior to treatment and 0/10 after treatment Communication With Other Providers: none Objective Measures: 100% ext soreness, 100% flexion no pain, 100% SB no pain, 100% rotation B no pain; Response To Treatment: Patient presents with less tender points on right anterior cervical chain with noted C7 dysfunction right and C2-C3 dysfunction on the left anteriorly and posteriorly. Strain counterstrain performed with noted elimination in tender points. Patient given exercise to inhibit anterior neck muscles. STG'S to be achieved in 2 weeks : 1. Pt will be instructed in HEP and demonstrate good understanding. - partially met, ongoing 2. Pt will achieve full cervical motion in all directions s pain. - partially met, 100% ext soreness, 100% flexion no [...] date: 12-08-18 Onset date: chronic Insurance Information: [employer] Date: 11-07-18 11-13-18 11-17-18 11-21-18 11-27-18 12-04-18 [...] 24 min SCS 25 min SCS Modalities H WEIGHER documented in this encounter Plan of Treatment [...] muscle documented in this encounter Care Teams Press Set Up Relationship Specialty [place] [address] [place] [address] [place] [address] PCP - General Podiatry 08/23/15 documented as of this encounter
--- OUTSIDE RECORDS SUMMARY | 2024-11-30 10:19 | XMS_ITS | Encounter Summary ---
Author Organization [employer] Address [address] [place] [address] Care Team Providers Care Water Rights Specialist Name Role Phone Delonte Marin MD Primary Care Provider +1- [phone] Encounter Details Date Type Department Care Team (Late st Contact Info) Description 11/13/2018 Orders Only [facility] [address] [facility] [address] [place] [address] Christine Henderson, [facility] [address] [place] [address] Fatigue, unspecified type (Primary Dx) Social History Tobacco [...] documented as of this encounter Results * CBC and differential (11/13/2018 11:06 AM CURING OVEN TENDER) WBC 5.32 4.00 - 11.00 th/mm3 11/13/2018 11:23 AM CURING OVEN TENDER [facility] RBC 4.16 3.80 - 5.80 mill/mm3 11/13/2018 11:[address] [facility] HGB 12.9 11.5 - 16.5 g/dL 11/13/2018 11:[address] [facility] HCT 37.9 37.0 - 47.0 % 11/13/2018 11:[address] [facility] MCV 91.1 76 - 99 fL 11/13/2018 11:[address] [facility] MCH 31.0 27.0 - 32.0 pg 11/13/2018 11:[address] [facility] MCHC 34.0 30.0 - 35.0 g/dL 11/13/2018 11:[address] [facility] Platelets 210 135 - 470 th/mm3 11/13/2018 11:[address] [facility] RDW 11.4 11.0 - 17.0 % 11/13/2018 11:[address] [facility] MPV 10.3 8.0 - 12.5 fL 11/13/2018 11:[address] [facility] Differential Type AUTOMATED DIFFERENTIAL 11/13/2018 11:[address] [facility] Neutrophil % 59.6 45.0 - 75.0 % 11/13/2018 11:[address] [facility] Lymphocytes % 28.0 20.0 - 45.0 % 11/13/2018 11:[address] [facility] Monocyte % 6.4 0.0 - 10.0 % 11/13/2018 11:[address] [facility] Eosinophils Relative % 4.9 0.0 - 5.0 % 11/13/2018 11:[address] [facility] Basophils % 0.9 0.0 - 2.0 % 11/13/2018 11:[address] [facility] Immature Granulocytes% 0.2 0.0 - 1.6 % 11/13/2018 11:[address] [facility] Neutrophils Absolute 3.17 2.00 - 7.90 th/mm3 11/13/2018 11:[address] [facility] Lymphocytes Absolute 1.49 1.00 - 4.00 th/mm3 11/13/2018 11:[address] [facility] Monos Absolute 0.34 0.00 - 0.80 th/mm3 11/13/2018 11:[address] [facility] Eosinophils Absolute Count 0.26 0.00 - 0.40 th/mm3 11/13/2018 11:[address] [facility] Basophils Absolute 0.05 0.00 - 0.10 th/mm3 11/13/2018 11:23 AM [facility] Immature Granulocytes Absolute 0.01 0.0 - 0.20 th/mm3 11/13/2018 11:[address] [facility] Serum specimen (specimen) BLOOD SPECIMEN / Unknown 11/13/2018 11:06 AM CURING OVEN TENDER 11/13/2018 11:08 AM CURING OVEN TENDER us Delonte Marin MD LAB BLOOD ORDERABLES Final Result [facility] [address] [place], [place] * TSH (11/13/2018 11:06 AM CURING OVEN TENDER) TSH 2.03 0.36 - 3.74 m[IU]/L 11/13/2018 11:[address] [facility] Serum specimen (specimen) BLOOD SPECIMEN / Unknown 11/13/2018 11:06 AM CURING OVEN TENDER 11/13/2018 11:08 AM CURING OVEN TENDER us Delonte Marin MD LAB BLOOD ORDERABLES Final Result [facility] [address] [place], [place] documented in this encounter Visit Diagnoses Diagnosis Fatigue, unspecified type- Primary documented in this encounter Care Teams Water Rights Specialist Relationship Specialty Start Date End Date Delonte Marin MD [address] [facility] [address] [place] [address] PCP - General Podiatry 08/23/15 documented as of this encounter
--- OUTSIDE RECORDS SUMMARY | 2024-11-30 10:19 | XMS_ITS | Encounter Summary ---
Author Organization [employer] Address [address] [place] [address] Care Team Providers Care Flight Test Shop Mechanic Name Role Phone Delonte Marin MD Primary Care Provider +1- [phone] Reason for Visit * Reason Comments Medication Refill Encounter Details Date Type Department Care Team (Late st Contact Info) Description 01/13/2019 Refill [facility] Neurology [address] [place] [id number] Delonte Farfan MD [address] [place] [address] 2 [place] [address] Migraine without status migrainosus, not [...] type documented in this encounter Care Teams Flight Test Shop Mechanic Relationship Specialty Start Date End Date Delonte Marin MD [address] [facility] [address] [place] [address] PCP - General Podiatry 08/23/15 documented as of this encounter
--- OUTSIDE RECORDS SUMMARY | 2024-11-30 10:19 | XMS_ITS | Encounter Summary ---
Author Organization [employer] Address [address] [place] [address] Care Team Providers Care Manager Water Wastewater Name Role Phone Delonte Marin MD Primary Care Provider +1- [phone] Encounter Details Date Type Department Care Team (Late st Contact Info) Description 12/04/2018 9:00 AM HOSPITAL RECRUITER Clinical Support [facility] Physical Therapy [address] [place] [phone] Elías Muhammad DO [address] [place] [address] [place] [address] [place] [address] Tight fascia; Decreased ROM of neck; [...] Progress Notes * Tom Hughes, PT - 12/04/2018 9:00 AM CST Recert Referring Provider: Jb [...] today in good spirits with minimal complaints. Headaches are less frequent and not as intense. Discussed POC options with patient at length. Decided to schedule out 1 appointment in two weeks in case headaches return. Patient instructed to call and cancel if a symptomatic. PVU. STG'S to be achieved in 2 [...] Start Of Care: 6 visits Recertification Dates: 12-05-18 to 12-25-18 Service Dates: 11-07-18 to 12-04-18 Reason For Continuing Treatment: Patient continues to [...] of treatment and while under my care. Jb Exercise Flow Sheet Referring provider:Jb RTD: 01-05-18 Contraindications: n/a End POC date: 12-08-18 Onset date: chronic Insurance Information: Fund Recs Cross Date: 11-07-18 11-13-18 11-17-18 11-21-18 11-27-18 12-04-18 Visit Type: foto daily daily daily foto recert foto 10th visit Visit Number: 1 2 3 4 5 6 Clinician: MTT MTT MTT MTT MTT MTT Therex Supine on 11/19 foam HEP Supine C/S retraction HEP Neuro Gait Theract Manual 15 min 30 min 20 min 30 min 23 min 30 min Modalities ITAL RECRUITER documented in this encounter Plan of Treatment [...] muscle documented in this encounter Care Teams Manager Water Wastewater Relationship Specialty Start Date End Date Delonte Marin MD [address] [facility] [address] [place] [id number] PCP - General Podiatry 08/23/15 documented as of this encounter
--- OUTSIDE RECORDS SUMMARY | 2024-11-30 10:19 | XMS_ITS | Encounter Summary ---
Author Organization [employer] Address [address] [place] [address] Care Team Providers Care Oil Agent Name Role Phone Delonte Marin MD Primary Care Provider +1- [phone] Reason for Visit * Reason Comments Headache x 3 weeks Neck Pain x 3 weeks Fatigue Encounter Details Date Type Department Care Team (Late st Contact Info) Description 11/13/2018 11:30 AM MATRIX DRIER TENDER Office Visit [address] [place] [address] Delonte Marin MD [address] [place] [address] [address] [place] [address] Migraine without status migrainosus, not intractable, unspecified migraine type (Primary Dx); Fatigue, unspecified type Social History Tobacco Use Types [...] Sign Reading Time Taken Comments Blood Pressure 104/78 11/13/2018 11:42 AM MATRIX DRIER TENDER Pulse 113 11/13/2018 11:42 AM MATRIX DRIER TENDER Temperature 35.4 ??C (95.8 ??F) 11/13/2018 11:[address] Respiratory Rate - - Oxygen Saturation 99% 11/13/2018 11:42 AM MATRIX DRIER TENDER Inhaled Oxygen Concentration - - Weight 70 kg (154 lb 6.4 oz) 11/13/2018 11:42 AM MATRIX DRIER TENDER Height 167.6 cm (5' 6 ) 11/13/2018 11:42 AM MATRIX DRIER TENDER Body Mass Index 24.92 11/13/2018 11:42 AM MATRIX DRIER TENDER documented in this encounter Patient Instructions * Patient Instructions* Delonte Marin MD - 11/13/2018 11:30 AM MATRIX DRIER TENDER Patients PCP is: Dr. Tomas MD [address] [place] [address] [address] [place], [place] [id number] IX DRIER TENDER documented in this encounter Progress Notes * Delonte Marin MD - 11/13/2018 11:30 AM CST [address] [facility] [address] Dept: [phone] Dept Loc: [phone] Loc Date: 11/13/2018 Name: Michelle Gomez : 1985 PCP: Delonte Marin MD Subjective: Patient ID: Michelle Gomez is a 33 y.o. female. CC: Michelle Gomez is a 33 y.o. patient of [facility] and is seen today for Chief Complaint Patient presents with ??? Headache x 3 weeks ??? Neck Pain x 3 weeks ??? Fatigue NOTE: Abbreviations, medical idioms and medical terminology are frequently used in office visit notes. Please call my nurse if you have questions about what an idiom means. (examples = CC, HPI, ROS, FU, HTN, DM, SOB, PERERA, TM, WCC, etc.) HPI Migraines I still have a lot of headaches from the temples to my eyes to the base of my neck. The headache has been constant for 3 weeks. I have neck tenderness for three weeks. I barbi Neuro and Ortho. Carlos is out for 4 weeks. She is seen for migraines. She was diagnosed several years ago. She is currently at baseline. She uses sumatriptan 100 mg daily as needed. She states the migraines are associated with photophobia, phonophobia, occasional nausea, but no emesis or. She denies abdominal pain, chills, diarrhea, emesis,fever, hearing problems, rash, sore throat, neck pain, nausea, viral congestion, scotoma, recent trauma, and vision problems. Fatigue.. Patient is seen for fatigue. This is a new problem. She says it started several weeks ago. It is not getting worse. She denies chest pain, chills, dyspnea, fever, and weight loss. Neck Pain. Ortho Dr. Muhammad has me doing neck PT. She is seen for chronic neck pain. The pain is in the cervical area. Patient's medications, allergies, past medical, surgical, social [...] pale. . Neurological: No paresthesia No tremors. Migraines . Allergic/Immunologic: No rhinitis No hives. . Hematological: No bleeding Not pale. No LA . Psychiatric/Behavioral: No amnesia No anxiety. . Objective: Blood pressure 104/78, pulse 113, temperature (!) 35.4 ??C (95.8 ??F), temperature source Tympanic,height 1.676 m (5' 6 ), weight 70 kg (154 lb 6.4 oz), SpO2 99 %., BMI Body mass index is 24.92 kg/m??. Physical Exam Constitutional: Oriented to person, place, and time. Well-developed. Well- nourished. . . . ENT:. . . . Eyes:. . . . Head: Normocephalic and atraumatic. . . . Neck: Supple. Normal range of motion. . . . Pulmonary/Chest: Normal effort. Normal breath sounds. No respiratory distress. No wheezing. . . . Cardiovascular: Normal rate. Regular rhythm. Normal heart sounds. No murmur. . . . Abdominal: Soft. Normal bowel sounds. No guarding, or rebound, or mass. . . . Musculoskeletal: Normal range of motion. Normal strength Normal gait. . . . . GenitoUrinary: No bladder tenderness. No distention. . . . Neurological: Sensation intact. Normal co-ordination. . . . Skin: Skin is warm and dry. Not pale. No lesions. . . . Lymph:. . . . Psychiatric: Normal mood and affect. Behavior is normal. Judgment and thought content normal. . . . Assessment/Plan: Problem List Items Addressed This Visit Fatigue Relevant Orders Comprehensive metabolic panel (Completed) Magnesium (Completed) Migraines - Primary Relevant Medications SUMAtriptan succinate (IMITREX) 100 MG tablet lrhphxcnjs-klqblgfeypvrm-dfxrrajq (FIORICET, ESGIC) 50-325-40 MG per tablet Other Relevant Orders Comprehensive metabolic panel (Completed) Magnesium (Completed) ASSESSMENT & PLAN: 1. Migraine without status migrainosus, not intractable, unspecified migraine type STATUS: History of migraine headache. New exacerbation. Discussed causes such as allergies, stress,trauma, and weather. Try to avoid. RECOMMENDATIONS: Rest. Increase fluids. Take all medications as directed. FOLLOW UP: Recheck six months. Telephone us or return to office if worse or does not resolve. PROPHALAXIS: Try magnesium oxide 400 mg daily and riboflavin 400 mg daily. MEDICATIONS: Will continue sumatriptan 100 mg daily as needed . MAX 2 per day. Take as soon as migraine starts. Discussed the risks vs benefits vs side effects (sleepiness, etc.) vs alternatives of this medication with patient. ORDERS: will check labs - SUMAtriptan succinate (IMITREX) 100 MG tablet; Take 1 tablet by mouth as needed for Migraine. MAX2 per day. Dispense: 9 tablet; Refill: 5 - gorlauysqn-jicouxaaekbbl-tsxyhowf (FIORICET, ESGIC) 50-325-40 MG per tablet; Take 1 tablet by mouth every 4 (four) hours as needed for Pain. Dispense: 10 tablet; Refill: 0 - Comprehensive metabolic panel; Future - Magnesium; Future 2. Fatigue, unspecified type STATUS: New RECOMMENDATIONS: FOLLOW UP: Telephone us or return to office if worse. MEDICATION: ORDERS: Will check labs - Comprehensive metabolic panel; Future - Magnesium; Future BMI: Body mass index is 24.92 kg/m??. Wt Readings from Last 3 Encounters: 11/20/18 69.4 kg (153 lb) 11/13/18 70 kg (154 lb 6.4 oz) 10/23/18 70.5 kg (155 lb 6.4 oz) ORDERS: Orders Placed This Encounter Medications ??? SUMAtriptan succinate (IMITREX) 100 MG tablet Sig: Take 1 tablet by mouth as needed for Migraine. MAX 2 per day. Dispense: 9 tablet Refill: 5 ??? xfdvnwghly-ivaghhjckayhd-dedyusro (FIORICET, ESGIC) 50-325-40 MG per tablet Sig: Take 1 tablet by mouth every 4 (four) hours as needed for Pain. Dispense: 10 tablet Refill: 0 TESTS: Hospital Outpatient Visit on 11/13/2018 Component Date Value Ref Range Status ??? TSH 11/13/2018 2.03 0.36 - 3.74 m[IU]/L Final ??? WBC 11/13/2018 5.32 4.00 - 11.00 th/mm3 Final ??? RBC 11/13/2018 4.16 3.80 - 5.80 mill/mm3 Final ??? Hemoglobin 11/13/2018 12.9 11.5 - 16.5 g/dL Final ??? Hematocrit 11/13/2018 37.9 37.0 - 47.0 % Final ??? MCV 11/13/2018 91.1 76 - 99 fL Final ??? MCH 11/13/2018 31.0 27.0 - 32.0 pg Final ??? MCHC 11/13/2018 34.0 30.0 - 35.0 g/dL Final ??? Platelets 11/13/2018 210 135 - 470 th/mm3 Final ??? RDW 11/13/2018 11.4 11.0 - 17.0 % Final ??? MPV 11/13/2018 10.3 8.0 - 12.5 fL Final ??? Differential Type 11/13/2018 AUTOMATED DIFFERENTIAL Final ??? Neutrophil % 11/13/2018 59.6 45.0 - 75.0 % Final ??? Lymphocytes % 11/13/2018 28.0 20.0 - 45.0 % Final ??? Monocyte % 11/13/2018 6.4 0.0 - 10.0 % Final ??? Eosinophils Relative % 11/13/2018 4.9 0.0 - 5.0 % Final ??? Basophils % 11/13/2018 0.9 0.0 - 2.0 % Final ??? Immature Neutro % 11/13/2018 0.2 0.0 - 1.6 % Final ??? Neutrophils Absolute 11/13/2018 3.17 2.00 - 7.90 th/mm3 Final ??? Lymphocytes Absolute 11/13/2018 1.49 1.00 - 4.00 th/mm3 Final ??? Monos Absolute 11/13/2018 0.34 0.00 - 0.80 th/mm3 Final ??? Eosinophils Absolute Count 11/13/2018 0.26 0.00 - 0.40 th/mm3 Final ??? Basophils Absolute 11/13/2018 0.05 0.00 - 0.10 th/mm3 Final ??? Immature Neutro 11/13/2018 0.01 0.0 - 0.20 th/mm3 Final ??? Sodium 11/13/2018 139 136 - 145 mmol/L Final ??? Potassium 11/13/2018 3.7 3.5 - 5.1 mmol/L Final ??? Chloride 11/13/2018 103 98 - 107 mmol/L Final ??? CO2 11/13/2018 27 21 - 32 mmol/L Final ??? Glucose 11/13/2018 102 74 - 106 mg/dL Final ??? BUN 11/13/2018 13 7.0 - 18.0 mg/dL Final ??? Creatinine, Serum 11/13/2018 0.75 0.55 - 1.02 mg/dL Final ??? Calcium 11/13/2018 8.8 8.5 - 10.1 mg/dL Final ??? Total Protein 11/13/2018 7.2 6.4 - 8.2 g/dL Final ??? Albumin 11/13/2018 4.1 3.4 - 5.0 g/dL Final ??? Bilirubin Total 11/13/2018 0.3 0.2 - 1.0 mg/dL Final ??? Alkaline Phosphatase 11/13/2018 51 42 - 98 U/L Final ??? AST 11/13/2018 16 15 - 37 U/L Final ??? ALT 11/13/2018 20 14 - 59 U/L Final ? ? EGFR Non-/Spanish 11/13/2018 >60 Final ? ? EGFR /Spanish 11/13/2018 >60 Final ??? Magnesium 11/13/2018 1.7* 1.8 - 2.4 mg/dL Final ] Next Visit: Return in about 6 months (around 05/14/2019). Encounter of: 11/13/2018 Signed: Delonte Marin MD 11/28/2018 4:10 PM IX DRIER TENDER documented in this encounter Plan of Treatment Not on file documented as of this encounter Goals Goal Patient Goal Type Associated Problems Recent Progress Patient-Stated? Author Use sunscreen daily Lifestyle No Divya Cr, RN Frequent Skin Checks Lifestyle No Divya Cr RN documented as of this encounter Results * (ABNORMAL) Magnesium (11/13/2018 11:06 AM MATRIX DRIER TENDER) Magnesium 1.7(L) 1.8 - 2.4 mg/dL 11/13/2018 1:07 PM MATRIX DRIER TENDER [facility] Serum specimen (specimen) BLOOD SPECIMEN / Unknown 11/13/2018 11:06 AM MATRIX DRIER TENDER 11/13/2018 12:35 PM MATRIX DRIER TENDER us Delonte Marin MD LAB BLOOD ORDERABLES Final Result [facility] [address] [place], [place] * Comprehensive metabolic panel (11/13/2018 11:06 AM MATRIX DRIER TENDER) Sodium 139 136 - 145 mmol/L 11/13/2018 1:07 PM MATRIX DRIER TENDER [facility] Potassium 3.7 3.5 - 5.1 mmol/L 11/13/2018 1:07 PM MATRIX DRIER TENDER [facility] Chloride 103 98 - 107 mmol/L 11/13/2018 1:07 PM MATRIX DRIER TENDER [facility] CO2 27 21 - 32 mmol/L 11/13/2018 1:07 PM MATRIX DRIER TENDER [facility] Glucose 102 74 - 106 mg/dL 11/13/2018 1:07 PM [facility] BUN 13 7.0 - 18.0 mg/dL 11/13/2018 1:07 PM [facility] Creatinine 0.75 0.55 - 1.02 mg/dL 11/13/2018 1:07 PM [facility] Calcium 8.8 8.5 - 10.1 mg/dL 11/13/2018 1:07 PM [facility] Total Protein 7.2 6.4 - 8.2 g/dL 11/13/2018 1:07 PM [facility] Albumin 4.1 3.4 - 5.0 g/dL 11/13/2018 1:07 PM [facility] Bilirubin Total 0.3 0.2 - 1.0 mg/dL 11/13/2018 1:07 PM [facility] [employer] [facility] Alkaline Phosphatase 51 42 - 98 U/L 11/13/2018 1:07 PM [facility] AST 16 15 - 37 U/L 11/13/2018 1:07 PM [facility] [employer] [employer] [facility] ALT 20 14 - 59 U/L 11/13/2018 1:07 PM [facility] Creatinine Based eGFR >60 11/13/2018 1:07 PM [facility] [employer] [facility] Comment: GFR REFERENCE RANGE: >60 mL/min/1.73m2 -- An eGFR of > than, or = to 60, may indicate normal renal function or mildly decreased GFR. EGFR /Spanish >60 11/13/2018 1:07 PM [facility] Comment: -- An eGFR of > than, or = to 60, may indicate normal renal function or mildly decreased GFR. Serum specimen (specimen) 11/13/2018 11:06 AM MATRIX DRIER TENDER 11/13/2018 12:35 PM MATRIX DRIER TENDER us Delonte Marin MD LAB BLOOD ORDERABLES Final Result [facility] [employer] [facility] [address] [place] documented in this encounter Visit Diagnoses Diagnosis Migraine without status migrainosus, not intractable, unspecified migraine type- Primary Fatigue, unspecified type documented in this encounter Care Teams Oil Agent Relationship Specialty Start Date End Date Delonte Marin MD [address] [facility] [address] [place] [id number] PCP - General Podiatry 08/23/15 documented as of this encounter
--- OUTSIDE RECORDS SUMMARY | 2024-11-30 10:19 | XMS_ITS | Encounter Summary ---
Author Organization [employer] Address [address] [place], [place] [id number] Care Team Providers Care Senior Electrical Designer Name Role Phone Kathy Marin MD Primary Care Provider +1- [phone] Reason for Referral * Referral (Routine) - Closed Specialty Diagnoses / Procedures Referred By Tommie jara Referred To Contact Physical Therapy Diagnoses Chronic neck pain Neck muscle spasm Elías Muhammad DO [address] [place] [phone] Phone: tel: fax: Natacha Serrano, PT [address] [place] [address] Phone: tel: Referral ID Status Reason Start Date Expiration Date V isits Requested Visits Authorized [id number] Closed Specialty Services Required 11/03/2018 11/03/2019 1 1 ISSION ASSOCIATE Reason for Visit * Reason Comments Follow-up Neck pain Encounter Details Date Type Department Care Team (Late st Contact Info) Description 11/03/2018 1:15 PM COMMISSION ASSOCIATE Office Visit [facility] Orthopedics and [facility] Medicine [address] [place] [phone] Elías Muhammad DO [address] [place] [phone] Chronic neck pain (Primary Dx); Neck muscle [...] Sign Reading Time Taken Comments Blood Pressure 123/83 11/03/2018 1:32 PM COMMISSION ASSOCIATE Pulse 108 11/03/2018 1:32 PM COMMISSION ASSOCIATE Temperature 36.6 ??C (97.8 ??F) 11/03/2018 1:32 PM CS T Respiratory Rate - - Oxygen Saturation 98% 11/03/2018 1:32 PM COMMISSION ASSOCIATE Inhaled Oxygen Concentration - - Weight - - Height - - Body Mass Index - - documented in this encounter Progress Notes * Elías Muhammad, DO - 11/03/2018 1:15 PM CST [facility] [address] [place] [address] SUBJECTIVE: Chief Complaint Patient presents with ??? Follow-up Neck pain Michelle Gomez is a 33 y.o. female here today for follow-up chronic neck pain. Michelle reports that she has had this pain for at least 6 months now, and only feels like this pain is getting worse. Sitting for long periods of time such as driving, or sleeping will cause headaches and pain. Michelle also reports that advil does help with the pain. MEDICATION: Current Outpatient Prescriptions: ??? oomqwlnodu-aodzmaeaoxmnl-fxeeygce (FIORICET, ESGIC) 50-325-40 MG per tablet, Take 1 tablet by mouth every 4 (four) hours as needed for Pain., Disp: 10 tablet, Rfl: 0 ??? nortriptyline (PAMELOR) 10 MG capsule, Take 5 capsules by mouth nightly. . (Patient taking differently: Take 30 mg by mouth nightly. . ), Disp: 150 capsule, Rfl: 6 ??? SUMAtriptan [...] release Right 10/24/2015 Right hand carpal tunnel release./[place] ??? Foot surgery Left bunionectomy Past Medical [...] Tight fascia ??? Decreased ROM of neck OBJECTIVE: BP 123/83 Pulse 108 Temp 36.6 ??C (97.8 ??F) SpO2 98% There is no height or weight on file to calculate BMI. Physical Exam Intake note and vitals reviewed. Constitutional- well-developed, well-nourished, and in no distress. Mental status- alert and cooperative. Psych- mood and affect appropriate. Head, Face- normocephalic, atraumatic, facies symmetric without weakness. Eyes- Pupils are equal and round, extraocular muscles appear to be intact. Neck- symmetric and supple. Lymph- no cervical or supraclavicular LAD or tenderness. Cardiovascular- no upper extremity soft tissue swelling or edema distally, radial pulse 2+ and intact bilaterally. Skin- warm, dry and intact cervical spine, upper back and upper extremities without erythema, rashes or lesions. Neurologic- sensation to light tactile stimulation intact grossly intact upper extremity bilaterally. MSK- cervicothoracic spine exam finds no visible swelling, discoloration or deformity. There is mild-moderate diffuse tenderness palpation along the left lateral cervical masses today. Mild parvertebral spasm noted left greater than right. No appreciable spasm. She has full cervical range of motionin all directions but with only fair motion quality today. No upper extremity motion or strength deficits today. Studies- [address] [address] ?? DIAGNOSTIC IMAGING ?? Name: MICHELLE GOMEZ ? Ordering Phys: KATHY ADKINS Age: 33 ?Date of : 1985 ? Accession Number: [id number] Date of Service:08/19/2018 ?? Gender: F ?? [...] T: ??08/19/2018 12:19 PM ?? Report ID: [id number] Reading Location: ??[id number] ?? ASSESSMENT: Chronic nonradicular cervical pain with associated tension type headache. 1. Chronic neck pain 2. Neck muscle spasm PLAN: -Refer for PT as ordered. -See back as scheduled. Return in about 2 months (around 01/04/2019). Medications ordered this visit: Requested Prescriptions No prescriptions requested or ordered in this encounter Other Orders placed this visit: Orders Placed This Encounter Procedures ??? Amb Ref to Physical Therapy There are no Patient Instructions on file for this visit. Elías Muhammad DO This document was dictated using Dragon; bill recapitulation clerk variances may occur. ISSION ASSOCIATE documented in this encounter Plan of Treatment [...] muscle documented in this encounter Care Teams Senior Electrical Designer Relationship Specialty [place] [address] [place] [address] [place] [id number] PCP - General Podiatry 08/23/15 documented as of this encounter
--- OUTSIDE RECORDS SUMMARY | 2024-11-30 10:19 | XMS_ITS | Encounter Summary ---
Author Organization [employer] Address [address] [place] [address] Care Team Providers Care Channel Installer Name Role Phone Delonte Marin MD Primary Care Provider +1- [phone] Reason for Visit * Reason Onset Date Comments Medication Refill 12/30/2018 Encounter Details Date Type Department Care Team (Late st Contact Info) Description 12/30/2018 Refill [facility] Neurology [address] [place] [phone] Martha Hill, RN [address] [place] [address] Migraine without status migrainosus, not [...] Telephone Encounter - Martha Hill RN - 12/30/2018 11:08 AM SUPERVISOR BRAKE REPAIR Pt requesting another fioricet script. Discussed with Dr. Farfan and agrees, orders to send 5 tabs to last her until the . After that date she can be prexcribed 15 tabs every 30 days. Pt does not wish to increase nortipriptyline at this time. Maritza GRACIA RVISOR BRAKE REPAIR documented in this encounter Plan of Treatment [...] type documented in this encounter Care Teams Channel Installer Relationship Specialty Start Date End Date Delonte Marin MD [address] [facility] [address] [place] [address] PCP - General Podiatry 08/23/15 documented as of this encounter
--- OUTSIDE RECORDS SUMMARY | 2024-11-30 10:19 | XMS_ITS | Encounter Summary ---
Author Organization [employer] Address [address] [place] [address] Care Team Providers Care Global Coordinator Name Role Phone Delonte Marin MD Primary Care Provider +1- [phone] Reason for Visit * Reason Comments office visit persistant acute hea dache Encounter Details Date Type Department Care Team (Late st Contact Info) Description 11/20/2018 11:30 AM SPANISHER Office Visit [facility] Neurology [address] [place] [phone] Delonte Farfan MD [address] [place] [address] [address] [place] [address] Chronic migraine without aura without status migrainosus, not intractable (Primary Dx); Neck pain; Chronic migraine; Spells of decreased attentiveness Social History Tobacco Use Types Packs/Day Years [...] Sign Reading Time Taken Comments Blood Pressure 130/88 11/20/2018 12:08 PM SPANISHER Pulse 105 11/20/2018 12:08 PM SPANISHER Temperature - - Respiratory Rate - - Oxygen Saturation 98% 11/20/2018 12:08 PM SPANISHER Inhaled Oxygen Concentration - - Weight 69.4 kg (153 lb) 11/20/2018 12:08 PM SPANISHER Height 167.6 cm (5' 6 ) 11/20/2018 12:08 PM SPANISHER Body Mass Index 24.69 11/20/2018 12:08 PM SPANISHER documented in this encounter Progress Notes * Delonte Farfan MD - 11/20/2018 11:[address] Marin Patient is in office today for a follow up of persistant acute headaches. Patient is accompanied byher daughter. Patient states for the last three weeks she is having a headache that never goes awayand she would rate the pain some days a 2 and some days an 8. Patient states in the beginning the pain was worse when she first woke up but now it is worse later in the morning or early afternoon. Patient states imitrex helps some of the time but if the headache is a really painful headache those don't help it. Patient states sometimes she is more sensitive to light if the pain is bad enough. Anali Jackson LPN Subjective: Patient ID: Michelle Gomez is a 33 y.o. female. HPI follow up of persistant acute headaches. Patient is accompanied by her daughter. Patient states forthe last three weeks she is having a headache that never goes away and she would rate the pain somedays a 2 and some days an 8. Patient states in the beginning the pain was worse when she first wokeup but now it is worse later in the morning or early afternoon. Patient states imitrex helps some of the time but if the headache is a really painful headache those don't help it. Patient states sometimes she is more sensitive to light if the pain is bad enough. Neck issues exacerbate her headaches. She has seen Dr. Muhammad. He tried some metaxalone. She did nottolerate that well. Is been using some NSAIDs. Actually quite a bit. I worry about that. They are prone to rebound. Carry risks generally. Talked about renal failure GI issues hepatic issues etc. with that agent. Try to taper. Discussed eating that. Discussed serotonergic on the findings of migraines. Stressed vigilance for vegetative signs of depression. No pain but is never satisfactorily addressed until treat underlying depression is present. Father is prone to migraines. He uses amitriptyline. She is on nortriptyline. There is probably room to titrate that. She is currently on only 40 mg. 30-70 mg generally efficacious. 2-3 weeks for anymedication dose change to yield half its benefit. 6-8 weeks to kick in full. We are in winter months. She went off of Mirena wondering if it would help with her headaches. It seems to have exacerbated them. She may contemplate going back on it. Though things have improved a bit since initial cessation of that agent. TAPERING CAFFIENE Patient's problem list, medications, allergies, past medical, surgical, social and family historieswere reviewed and updated as appropriate. Patient Active Problem List Diagnosis ??? Migraines ??? Panic attack ??? Seborrheic keratoses ??? Encounter for management of intrauterine contraceptive device (IUD) ??? Chronic neck pain ??? Neck muscle spasm ??? Tight fascia ??? Decreased ROM of neck ??? Fatigue Patient Active Problem List Diagnosis Date Noted ??? Fatigue 11/28/2018 ??? Tight fascia 11/12/2018 ??? Decreased ROM of neck 11/12/2018 ??? Chronic neck pain 11/07/2018 ??? Neck muscle spasm 11/07/2018 ??? Encounter for management of intrauterine contraceptive device (IUD) 06/04/2018 ??? Seborrheic keratoses 01/20/2018 ??? Migraines 01/14/2018 ??? Panic attack 01/14/2018 Past Medical History: Diagnosis Date ??? Acute sinusitis ??? Carpal tunnel syndrome ??? Gastroenteritis ??? Headache ??? Migraines ??? Panic attack Past Surgical History: Procedure Laterality Date ??? Carpal tunnel release Left 09/12/2015 Left hand carpal tunnel release./[place] ??? Carpal tunnel release Right 10/24/2015 Right hand carpal tunnel release./[place] ??? Foot surgery Left bunionectomy Family History Problem Relation Age of Onset ??? Diabetes Paternal Grandmother ??? Diabetes Paternal Grandfather ??? Celiac disease Mother ??? Migraines Father ??? Cancer Neg Hx ??? Heart disease Neg Hx Social History Social History ??? Marital status: Spouse name: N/A ??? Number of children: 2 ??? 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 Smoking status: Never Smoker ??? Smokeless tobacco: Never Used ??? Alcohol use No ??? Drug use: No ??? Sexual activity: Yes Partners: Male control/ protection: None, Rhythm Comment: Mirena inserted and removed 10-23-2018 Other Topics Concern ??? Bike Helmet Yes ??? Caffeine Use Yes ??? Exercise Yes ??? Seat Belt/Car Seat Yes Social History Narrative ??? None Current Outpatient Prescriptions Medication Sig Dispense Refill ??? magnesium 200 MG TABS tablet Take 200 mg by mouth daily. ??? nortriptyline (PAMELOR) 10 MG capsule Take 5 capsules by mouth nightly. . 150 capsule 6 ??? SUMAtriptan succinate (IMITREX) 100 MG tablet Take 1 tablet by mouth as needed for Migraine. MAX 2 per day. 9 tablet 5 ??? xvpvkgisfq-ybiwospgjycko-qkbffxsu (FIORICET, ESGIC) 50-325-40 MG per tablet Take 1 tablet by mouth every 4 (four) hours as needed for Pain. 10 tablet 0 No current facility-administered medications for this visit. Current Outpatient Prescriptions on File Prior to Visit Medication Sig Dispense Refill ??? nortriptyline (PAMELOR) 10 MG capsule Take 5 capsules by mouth nightly. . 150 capsule 6 ??? SUMAtriptan succinate (IMITREX) 100 MG tablet Take 1 tablet by mouth as needed for Migraine. MAX 2 per day. 9 tablet 5 ??? dtivsrfsxy-zequsvcqglpdc-olgbcarr (FIORICET, ESGIC) 50-325-40 MG per tablet Take 1 tablet by mouth every 4 (four) hours as needed for Pain. 10 tablet 0 No current facility-administered medications on file prior to visit. No Known Allergies There is no immunization history on file for this patient. Review of Systems Constitutional: Negative for chills and fever. HENT: Negative for trouble swallowing. Eyes: Negative for visual disturbance. Respiratory: Negative for shortness [...] not bruise/bleed easily. Psychiatric/Behavioral: The patient is nervous/anxious. All other systems reviewed and are negative. Objective: BP 130/88 Pulse 105 Ht 1.676 m (5' 6 ) Wt 69.4 kg (153 lb) SpO2 98% BMI 24.69 kg/m?? Bodymass index is 24.69 kg/m??. Physical Exam Patient is alert, pleasant, cooperative, excellent historian. No anomia, no aphasia, no dysarthria,good registry and recall. Moves all 4 extremities well. Reflexes are symmetric. Good strength. Ambulates independently without any requirement for assistive device. Heart regular rate and rhythm. Lungs are clear. Abdomen is soft and nontender. Extremities without clubbing, cyanosis or edema. Skin without neurocutaneous manifestation. Assessment/Orders: Diagnoses and all orders for this visit: Chronic migraine without aura without status migrainosus, not intractable Neck pain Chronic migraine Spells of decreased attentiveness Plan: Neck issues exacerbate her headaches. She seen Dr. Muhammad. He tried some metaxalone. She did not tolerate that well. Is been using some NSAIDs. Actually quite a bit. I worry about that. They are proneto rebound. Carry risks generally. Talked about renal failure GI issues hepatic issues etc. with that agent. Try to taper. Discussed eating that. Discussed serotonergic on the findings of migraines. Stressed vigilance for vegetative signs of depression. No pain but is never satisfactorily addressed until treat underlying depression is present. Father is prone to migraines. He uses amitriptyline. She is on nortriptyline. There is probably room to titrate that. She is currently on only 40 mg. 30-70 mg generally efficacious. 2-3 weeks for anymedication dose change to yield half its benefit. 6-8 weeks to kick in full. We are in winter months. She went off of Mirena wondering if it would help with her headaches. It seems to have exacerbated them. She may contemplate going back on it. Though things have improved a bit since initial cessation of that agent. TAPERING CAFFIENE ISHER documented in this encounter Plan of Treatment [...] mention of status migrainosus Neck pain Cervicalgia Chronic migraine Chronic migraine without aura, without mention of intractable migraine without mention of status migrainosus Spells of decreased attentiveness Other general symptoms documented in this encounter Care Teams Global Coordinator Relationship Specialty Start Date End Date Delonte Marin MD [address] [facility] [address] [place] [address] PCP - General Podiatry 08/23/15 documented as of this encounter
--- OUTSIDE RECORDS SUMMARY | 2024-11-30 10:19 | XMS_ITS | Encounter Summary ---
Author Organization [employer] Address [address] [place] [address] Care Team Providers Care Telecom Coordinator Name Role Phone Delonte Marin MD Primary Care Provider +1- [phone] Encounter Details Date Type Department Care Team ([facility] st Contact Info) Description 01/08/2019 Orders Only [facility] Musculoskeletal [address] [place] [phone] Deborah Ramos RN [address] [place] [address] Neck pain (Primary Dx) Social History Tobacco Use [...] as of this encounter Results * XR Pelvis 1 or 2 Views (02/02/2019 8:52 AM CDT) Anatomical Region Laterality Modality Radiographic Nicole ging 02/02/2019 8:52 AM CDT Narrative 02/05/2019 8:15 AM CDT [address] [address] DIAGNOSTIC IMAGING Name: MICHELLE GOMEZ ? Ordering Phys: BENNY JOHNSTON Age: 33 ?Date of : 1985 ? Accession Number: [id number] Date of Service:02/02/2019 ?? Gender: F EXAM [...] AM T: ??02/02/2019 9:45 AM Report ID: [id number] Reading Location: ??[id number] Procedure Note Eduardo Bhandari MD - 02/05/2019 [place] [address] DIAGNOSTIC IMAGING Name: MICHELLE GOMEZ Ordering Phys: BENNY JOHNSTON Age: 33 Date of : 1985 Accession Number: [id number] Date of Service:02/02/2019 Gender: F EXAM DESCRIPTION: [...] by Eduardo Bhandari M.D. JR: Report ID: [id number] Reading Location: [id number] Benny Johnston DO IMG DIAGNOSTIC IMAGING ORDERA BLES Final Result * XR Thoracic Spine 2 Views (02/02/2019 8:52 AM CDT) Anatomical Region Laterality Modality C-spine, T-spine, L-spine, Chest Radiographic Imaging 02/02/2019 8:52 AM CDT Narrative 02/02/2019 9:48 [place] [address] DIAGNOSTIC IMAGING Name: MICHELLE GOMEZ ? Ordering Phys: BENNY JOHNSTON Age: 33 ?Date of : 1985 ? Accession Number: [id number] Date of Service:02/02/2019 ?? Gender: F EXAM [...] AM T: ??02/02/2019 9:45 AM Report ID: [id number] Reading Location: ??[id number] Procedure Note Eduardo Bhandari MD - 02/02/2019 [place] [address] DIAGNOSTIC IMAGING Name: MICHELLE GOMEZ Ordering Phys: BENNY JOHNSTON Age: 33 Date of : 1985 Accession Number: [id number] Date of Service:02/02/2019 Gender: F EXAM DESCRIPTION: [...] by Eduardo Bhandari M.D. JR: Report ID: [id number] Reading Location: [id number] Benny Johnston DO IMG DIAGNOSTIC IMAGING ORDERA BLES Final Result * XR Lumbosacral Spine 2 or 3 Views (02/02/2019 8:52 AM CDT) Anatomical Region Laterality Modality T-spine, L-spine, Pelvis Radiogr aphic Imaging 02/02/2019 8:52 AM CDT Narrative 02/05/2019 8:14 [place] [address] DIAGNOSTIC IMAGING Name: MICHELLE GOMEZ ? Ordering Phys: BENNY JOHNSTON Age: 33 ?Date of : 1985 ? Accession Number: [id number] Date of Service:02/02/2019 ?? Gender: F EXAM [...] AM T: ??02/02/2019 9:45 AM Report ID: [id number] Reading Location: ??[id number] Procedure Note Eduardo Bhandari MD - 02/05/2019 [place] [address] DIAGNOSTIC IMAGING Name: MICHELLE GOMEZ Ordering Phys: BENNY JOHNSTON Age: 33 Date of : 1985 Accession Number: [id number] Date of Service:02/02/2019 Gender: F EXAM DESCRIPTION: [...] by Eduardo Bhandari M.D. JR: Report ID: [id number] Reading Location: [place] [address] Benny Johnston DO IMG DIAGNOSTIC IMAGING ORDERA BLES Final Result documented in this encounter Visit Diagnoses Diagnosis Neck pain- Primary Cervicalgia Neck pain Cervicalgia documented in this encounter Care Teams Telecom Coordinator Relationship Specialty Start Date End Date Delonte Marin MD [address] [facility] [address] [place] [address] PCP - General Podiatry 08/23/15 documented as of this encounter
--- OUTSIDE RECORDS SUMMARY | 2024-11-30 10:19 | XMS_ITS | Encounter Summary ---
Author Organization [employer] Address [address] [place], [place] [id number] Care Team Providers Care Aoc [employer] Operations Staff Officer Name Role Phone Delonte Marin MD Primary Care Provider +1- [phone] Reason for Visit * Reason Comments Procedure Mirena removal Encounter Details Date Type Department Care Team (Latest Contact Info) Description 10/23/2018 12:30 PM LINOLEUM INSTALLER Procedure visit [facility] [address] [place] [address] Chloe Núñez CNM [address] [id number] Encounter for IUD removal (Primary Dx); Menstrual migraine without status migrainosus, not intractable; Encounter for other general counseling or advice on contraception Social History Tobacco Use Types Packs/Day Years [...] Sign Reading Time Taken Comments Blood Pressure 122/76 10/23/2018 12:43 PM LINOLEUM INSTALLER Pulse 80 10/23/2018 12:43 PM LINOLEUM INSTALLER Temperature 36.4 ??C (97.6 ??F) 10/23/2018 12:[address] Respiratory Rate 16 10/23/2018 12:43 PM LINOLEUM INSTALLER Oxygen Saturation 98% 10/23/2018 12:43 PM LINOLEUM INSTALLER Inhaled Oxygen Concentration - - Weight 70.5 kg (155 lb 6.4 oz) 10/23/2018 12:43 PM LINOLEUM INSTALLER Height - - Body Mass Index 25.08 09/09/2018 9:22 AM CDT documented in this encounter Patient Instructions * Patient Instructions* Chloe Núñez CNM - 10/23/2018 12:30 PM LINOLEUM INSTALLER Patients PCP is: Dr. Tomas MD [address] [place] [address] Tubal and Vasectomy handouts LEUM INSTALLER LEUM INSTALLER documented in this encounter Progress Notes * Chloe Núñez CNM - 10/23/2018 12:30 PM CST SUBJECTIVE: CC: Chief Complaint Patient presents with ??? Procedure Mirena removal HPI: Her last gynecological exam was uncertain but probably due for yearly and first co-test. Has had monthly menses. Patient is in a monogamous relationship. Patient is sexually active and has had no change in partners Her last Pap smear was-uncertain. She reports a questionable pap at age 20 and follow up paps were normal. Her current method of contraception is Mirena IUD that was inserted by Dr. Villar 03-05-2017 after her last child. This was her 2nd Mirena. M-gram-not a candidate. She is suffering from migraines. Had a MRI Jul 2018 that was unremarkable. She will follow up with her neurologist. She is working with a chiropractor with some benefit and was given exercises to do. She thinks she is done with having children but doesn't want to make a permanent decision yet. She thinks she mayhave menstrual migraines. She thinks she wants to be off all hormones for awhile and plans condoms and rhythm. ROS: CONSTITUTIONAL: Negative for fatigue, chills, fever, night sweats, victimization by domestic violence, unintentional weight gain or unintentional weight loss. GENITOURINARY: Negative for dysmenorrhea, dyspareunia, dysuria, lesions on external genitalia, hematuria, high risk sexual behavior, frequent UTI's, history of recurrent bacterial vaginosis, irregular menstrual cycle, menorrhagia, nocturia, polyuria, post-coital vaginal bleeding, post-menopausal vaginal bleeding, history of rape, history of sexual abuse, urinary incontinence, vaginal discharge, vaginal itching and history of douching. Having monthly menses. NEUROLOGICAL: She has been having an increase in migraine that she thinks may be menstrual related.MRI was read as normal. She follows up with a neurologist and a chiropractor she also has neck pain. Chiropractor thought she had a slight bulge in her disc. Uses as needed Imitrex and Amerge. PSYCHIATRIC: Negative for anxiety, crying spells, depression, feelings of stress, anhedonia, mood swings, premenstrual tension syndrome, recreational drug use, sadness, sleep disturbance and suicidalthoughts. History of panic attacks. No medications required PMH/FMH/SH: Past Medical History: Past Medical History: Diagnosis Date ??? Acute sinusitis ??? Carpal tunnel syndrome ??? Gastroenteritis ??? Headache ??? Migraines ??? Panic attack Surgical History: Past Surgical History: Procedure Laterality Date ??? Carpal tunnel release Left 09/12/2015 Left hand carpal tunnel release./Justin ??? Carpal tunnel release Right 10/24/2015 Right hand carpal tunnel release./[place] ??? Foot surgery Left bunionectomy Family History: Family History Problem Relation Age of Onset ??? Diabetes Paternal Grandmother ??? Diabetes Paternal Grandfather ??? Celiac disease Mother ??? Migraines Father ??? Cancer Neg Hx ??? Heart disease Neg Hx Social History: .socia Tobacco/Alcohol/Supplements: History Smoking Status ??? Never Smoker Smokeless Tobacco ??? Never Used Current Problems: Patient Active Problem List Diagnosis ??? Migraines ??? Panic attack ??? Seborrheic keratoses ??? Encounter for management of intrauterine contraceptive device (IUD) Immunizations: There is no immunization history on file for this patient. Allergies: Patient has no known allergies. Current Medications: Current Outpatient Prescriptions Medication Sig Dispense Refill ??? levonorgestrel (MIRENA, 52 MG,) 20 MCG/24HR IUD 1 each by Intrauterine route every five (5) years. ??? nortriptyline (PAMELOR) 10 MG capsule Take 4 capsules by mouth nightly. . 90 capsule 6 ??? SUMAtriptan succinate (IMITREX) 100 MG tablet TAKE 1 TABLET BY MOUTH TWICE DAILY NEEDED 9 tablet 5 ??? metaxalone (SKELAXIN) 800 MG tablet 1 tab oral three times daily for neck pain and spasm. 30 tablet 0 ??? naratriptan (AMERGE) 2.5 MG tablet Take 1 tablet by mouth as needed for Migraine. 2.5 mg at onset of headache, may repeat in 4 hours if needed 5 tablet 3 No current facility-administered medications for this visit. OBJECTIVE: Vitals: Vitals: 10/23/18 1243 BP: 122/76 Pulse: 80 Resp: 16 Temp: 36.4 ??C (97.6 ??F) Exams: PHYSICAL EXAM: GENERAL: well developed and nourished; appropriately groomed; in no apparent distress; GENITOURINARY: Pap smear (not a candidate).; screening for GC/CHL was denied by patient; external genitalia: normal without lesions or urethral abnormalities; vagina-small amount of white discharge cervix-Mirena string in correct position and length; uterus: position is anteverted; good pelvic support; normal size; no tenderness; ; adnexa: normal with no masses or tenderness; PSYCHIATRIC: appropriate affect and demeanor; normal speech pattern; grossly normal memory; ASSESSMENT 1. Encounter for IUD removal Removal of intrauterine device 2. Menstrual migraine without status migrainosus, not intractable ORDERS: Orders Placed This Encounter Procedures ??? Removal of intrauterine device This order was created via procedure documentation PLAN: Mirena was easily removed. No menses present. See procedure for details. We had a thorough review of options available for control, cycle control, and to help eliminate menses with extended cycle through a pill patch or ring. We discussed the risk and benefits of a tubal ligation versusvasectomy and handouts on both were given. She will use condoms and rhythm to avoid an unplanned . She was encouraged to be on a folic acid multivitamin and vitamin D3. She will return to the office for her yearly exam the first of the year along with a co-test. Question concerns were addressed and she verbalized understanding. She declines a flu shot. LEUM INSTALLER documented in this encounter Procedure Notes * Chloe Núñez CNM - 10/23/2018 12:30 PM CSTAssociated Order(s): REMOVAL OF INTRAUTERINE DEVICE Post-Procedure Diagnose(s): Encounter for IUD removal Removal of Intrauterine Device ([id number]) Date/Time: 10/23/2018 1:34 PM Performed by: CHLOE NÚÑEZ Authorized by: CHLOE NÚÑEZ [place] Protocol: Verbal consent obtained?: Yes Written consent obtained?: Yes Risks and benefits: Risks, benefits and alternatives were discussed Consent given by: Patient Patient states understanding of procedure being performed: Yes Patient's understanding of procedure matches consent: Yes Procedure consent matches procedure scheduled: Yes Relevant documents present and verified: Yes Test results available and properly labeled: Yes Required items: Required blood products, implants, devices and special equipment available Patient identity confirmed: Verbally with patient Time out: Immediately prior to the procedure a time out was called (A time out verifies correct patient, procedure, equipment, support representative and site/side marked as required.) Preparation: Preparation: Patient was prepped and draped in usual sterile fashion Anesthesia: Local anesthesia used?: No Sedation: Patient sedated: No Post-procedure: Patient tolerance: Patient tolerated the procedure well with no immediate complications Procedure Modifiers: Procedure Comments: Small amount of white discharge in vagina but denies symptoms of vaginitis. Mirena string normal position and correct length. No menses. After bimanual exam showing normal findings unexpired Mirena removed very easily. No bleeding. No vasovagal symptoms and very comfortable after the removal. LEUM INSTALLER documented in this encounter Plan of Treatment Not on file documented as of this encounter Goals Goal Patient Goal Type Associated Problems Recent Progress Patient-Stated? Author Use sunscreen daily Lifestyle No Divya Cr, RN Frequent Skin Checks Lifestyle No Divya Cr RN documented as of this encounter Procedures Procedure Name Priority Date/Time Associated Diagnosis Comments LA REMOVE INTRAUTERINE DEVICE Routine 10/23/2018 12:30 PM LINOLEUM INSTALLER Encounter for IUD removal documented in this encounter Results * LA REMOVE INTRAUTERINE DEVICE (10/23/2018 12:30 PM LINOLEUM INSTALLER) Narrative [facility] - 10/23/2018 12:30 PM LINOLEUM INSTALLER Chloe Núñez CNM ? 10/23/2018 ??1:48 PM Removal of Intrauterine Device ??([id number]) Date/Time: 10/23/2018 1:34 PM Performed by: CHLOE NÚÑEZ Authorized by: CHLOE NÚÑEZ [place] Protocol: ?Verbal consent obtained?: Yes ?Written consent obtained?: Yes ?Risks and benefits: Risks, benefits and alternatives were discussed ?Consent given by: ??Patient ??Patient states understanding of procedure being performed: Yes ?Patient's understanding of procedure matches consent: Yes ?Procedure consent matches procedure scheduled: Yes ?Relevant documents present and verified: Yes ?Test results available and properly labeled: Yes ?Required items: Required blood products, implants, devices and special equipment available ?Patient identity confirmed: ??Verbally with patient ??Time out: Immediately prior to the procedure a time out was called ?(A time out verifies correct patient, procedure, equipment, support representative and site/side marked as required.) Preparation: ?Preparation: Patient was prepped and draped in usual sterile fashion ?? Anesthesia: ??Local anesthesia used?: No ?? Sedation: ?Patient sedated: No ?? Post-procedure: ??Patient tolerance: ??Patient tolerated the procedure well with no immediate complications Procedure Modifiers: Procedure Comments: ?? Small amount of white discharge in vagina but denies symptoms of vaginitis. Mirena string normal position and correct length. No menses. After bimanual exam showing normal findings unexpired Mirena removed very easily. No bleeding. No vasovagal symptoms and very comfortable after the removal. ?? us Chloe Núñez CNM PROCEDURE/MINOR SURGICAL O RDERABLES Final Result [facility] [address] [place], [place] documented in this encounter Visit Diagnoses Diagnosis Encounter for other general counseling or advice on contraception Menstrual migraine without status migrainosus, not intractable Menstrual migraine, without mention of intractable migraine without mention of status migrainosus documented in this encounter Care Teams A[employer] Operations Staff Officer Relationship Specialty Start Date End Date Delonte Marin MD [address] [facility] [address] [place] [address] PCP - General Podiatry 08/23/15 documented as of this encounter
--- OUTSIDE RECORDS SUMMARY | 2024-11-30 10:19 | XMS_ITS | Encounter Summary ---
Author Organization [employer] Address [address] [place] [address] Care Team Providers Care Chief Technical Officer Name Role Phone Delonte Marin MD Primary Care Provider +1- [phone] Encounter Details Date Type Department Care Team ([facility] st Contact Info) Description 11/13/2018 Orders Only [address] [place] [address] Christine Henderson PHARMACIST IN CHARGE [address] [facility] [address] [place] [address] Hypomagnesemia (Primary Dx) Social History Tobacco Use Types [...] as of this encounter Visit Diagnoses Diagnosis Hypomagnesemia- Primary Disorders of magnesium metabolism documented in this encounter Care Teams Chief Technical Officer Relationship Specialty Start Date End Date Delonte Marin MD [address] [place] [address] [address] [place] [address] PCP - General Podiatry 08/23/15 documented as of this encounter
--- OUTSIDE RECORDS SUMMARY | 2024-11-30 10:20 | XMS_ITS | Encounter Summary ---
Author Organization [employer] Address [address] [place] [address] Care Team Providers Care Clam Grader Name Role Phone Delonte Marin MD Primary Care Provider +1- [phone] Reason for Visit * Reason Onset Date Comments Medication Refill 08/07/2018 Encounter Details Date Type Department Care Team (Late st Contact Info) Description 08/07/2018 Refill [facility] Neurology [address] [place] [address] Octavia Root CMA [address] [place] [address] Chronic migraine without aura without [...] Miscellaneous Notes * Telephone Encounter - Octavia Root CMA - 08/07/2018 8:26 AM CDT Patient called and stated that she is having severe headaches, discussed with Dr. Farfan and he wants to increase Nortrityline to 40 mg nightly. Patient VPU. ANA MARÍA Cruz documented in this encounter Plan of Treatment [...] migrainosus documented in this encounter Care Teams Clam Grader Relationship Specialty Start Date End Date Delonte Marin MD [address] [facility] [address] [place] [address] PCP - General Podiatry 08/23/15 documented as of this encounter
--- OUTSIDE RECORDS SUMMARY | 2024-11-30 10:20 | XMS_ITS | Encounter Summary ---
Author Organization [employer] Address [address] [place] [address] Care Team Providers Care National Park Tour Guide Name Role Phone Delonte Marin MD Primary Care Provider +1- [phone] Reason for Visit * Reason Comments Headache Encounter Details Date Type Department Care Team (Late st Contact Info) Description 05/29/2018 9:30 AM CDT Office Visit [address] [place] [address] Delonte Marin MD [address] [place] [address] [address] [place] [address] Menstrual migraine without status migrainosus, not intractable (Primary Dx) [...] Reading Time Taken Comments Blood Pressure 110/70 05/29/2018 9:54 AM CDT Pulse 102 05/29/2018 9:54 AM CDT Temperature 36.1 ??C (97 ??F) 05/29/2018 9:54 AM CDT Respiratory Rate - - Oxygen Saturation 98% 05/29/2018 9:54 AM CDT Inhaled Oxygen Concentration - - Weight 70.9 kg (156 lb 6.4 oz) 05/29/2018 9:54 A M CDT Height 168.9 cm (5' 6.5 ) 05/29/2018 9:54 AM CDT Body Mass Index 24.87 05/29/2018 9:54 AM CDT documented in this encounter Patient Instructions * Patient Instructions* Delonte Marin MD - 05/29/2018 9:30 AM CDT Patients PCP is: Dr. Tomas MD [address] [place] [address] [address] [place], [place] [phone] documented in this encounter Progress Notes * Delonte Marin MD - 05/29/2018 9:30 AM CDT [address] Health system [address] Dept: [phone] Dept Loc: [phone] Loc Date: 05/29/2018 Name: Michelle Gomez : 1985 PCP: Delonte Marin MD Subjective: Patient ID: Michelle Gomez is a 32 y.o. female. CC: Michelle Gomez is a patient of mine and is seen today for Chief Complaint Patient presents with ??? Headache HPI Migraines I saw Neuro, he started me on nortriptyline and wanted me to slowly increase it. I get migraines for over 15 days a month. She is seen for migraines. She was diagnosed several years ago. She is currently at baseline. She uses sumatriptan 100 mg 1/2 daily as needed. Recently started on nortriptyline one tab a day. She states the migraines are associated with photophobia, phonophobia, occasional nausea, but no emesis or vision changes. She denies abdominal pain, chills, diarrhea, emesis, fever, hearing problems, rash, sore throat, neck pain, nausea, viral congestion, scotoma, recent trauma, and vision problems. Patient's medications, allergies, past medical, surgical, social [...] nausea. . Endocrine: No excessive thirst. . Genitourinary: No hematuria No bladder pain. . Musculoskeletal: No muscle pain No bone pain. Skin: No rash Not pale. . Allergic/Immunologic: No rhinitis No hives. . Neurological: No paresthesia No tremors. Migraines . Hematological: No bleeding Not pale. . Psychiatric/Behavioral: No amnesia No anxiety. . Objective: Blood pressure 110/70, pulse 102, temperature 36.1 ??C (97 ??F), temperature source Tympanic, height 1.689 m (5' 6.5 ), weight 70.9 kg (156 lb 6.4 oz), SpO2 98 %., BMI Body mass index is 24.87 kg/m??. Physical Exam Constitutional: Oriented to person, place, and time. Well-developed. Well- nourished. . ENT: . . Eyes: . . Head: Normocephalic and atraumatic. . Neck: Supple. Normal range of motion. . Pulmonary/Chest: Normal effort. Normal breath sounds. No respiratory distress. No wheezing. . Cardiovascular: Normal rate. Regular rhythm. Normal heart sounds. No murmur. . Abdominal: Soft. Normal bowel sounds. No guarding, or rebound, or mass. . Musculoskeletal: Normal range of motion. Normal gait. Normal strength. . GenitoUrinary: No bladder tenderness. No distention. . Neurological: Sensation intact. Normal co-ordination. . Skin: Skin is warm and dry. Not pale. No lesions. . Lymph: . . Psychiatric: Normal mood and affect. Behavior is normal. Judgment and thought content normal. . Assessment/Plan: Problem List Items Addressed This Visit Migraines - Primary ASSESSMENT & PLAN: 1. Menstrual migraine without status migrainosus, not intractable STATUS: History of migraine headache. Presently at baseline. Discussed causes such as allergies, stress, trauma, and weather. Try to avoid. RECOMMENDATIONS: Rest. Continue fluids. Take all medications as directed. FOLLOW UP: Recheck as needed . MEDICATION: continue ORDERS: ORDERS: No orders of the defined types were placed in this encounter. Next Visit: No Follow-up on file. Encounter of: 05/29/2018 Signed: Delonte Marin MD 06/03/2018 5:40 PM documented in this encounter Plan of Treatment Not on file documented as of this encounter Goals Goal Patient Goal Type Associated Problems Recent Progress Patient-Stated? Author Use sunscreen daily Lifestyle No Divya Cr, RN Frequent Skin Checks Lifestyle No Divya Cr, RN documented as of this encounter Visit Diagnoses Diagnosis Menstrual migraine without status migrainosus, not intractable- Primary Menstrual migraine, without mention of intractable migraine without mention of status migrainosus documented in this encounter Care Teams National Park Tour Guide Relationship Specialty Start Date End Date Delonte Marin MD [address] [facility] [address] [place] [address] PCP - General Podiatry 08/23/15 documented as of this encounter
--- OUTSIDE RECORDS SUMMARY | 2024-11-30 10:20 | XMS_ITS | Encounter Summary ---
Author Organization [employer] [facility] Address [address] [place] [address] Care Team Providers Care Student Ministries Director Name Role Phone Delonte Marin MD Primary Care Provider +1- [phone] Reason for Visit * Reason Onset Date Comments Referral 02/19/2018 Dr. Farfan Encounter Details Date Type Department Care Team ([facility] st Contact Info) Description 02/19/2018 Telephone [facility] [address] [place] [address] Octavia Carrizales CHEMICAL WORKER [address] [facility] [address] [place] [address] Referral (Dr. Farfan) Social History Tobacco Use Types Packs/Day Years [...] Telephone Encounter - Octavia Carrizales CMA - 02/19/2018 10:36 AM CDT Called and spoke to the patient to let her know that her date and time for Dr Farfan is May 14 at 10:00 at the [facility]. She voiced understanding * Telephone Encounter - Octavia Carrizales CMA - 02/19/2018 10:35 AM CDT ----- Message from Tricia Porras sent at 02/19/2018 9:01 AM CDT ----- Contact: patient She would like a referral to Dr Farfan For headaches [phone] documented in this encounter Plan of Treatment Not on file documented as of this encounter Goals Goal Patient Goal Type Associated Problems Recent Progress Patient-Stated? Author Use sunscreen daily Lifestyle No Divya Cr, RN Frequent Skin Checks Lifestyle No Divya Cr, RN documented as of this encounter Visit Diagnoses Not on filedocumented in this encounter Care Teams Student Ministries Director Relationship Specialty Start Date End Date Delonte Marin MD [address] [facility] [address] [place] [address] PCP - General Podiatry 08/23/15 documented as of this encounter
--- OUTSIDE RECORDS SUMMARY | 2024-11-30 10:20 | XMS_ITS | Encounter Summary ---
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 Encounter Details Date Type Department Care Team (Late st Contact Info) Description 09/09/2018 9:00 AM CDT Office Visit [facility] [address] [place] [address] Elías Muhammad DO [address] [place] [address] Chronic neck pain (Primary Dx); Neck [...] Sign Reading Time Taken Comments Blood Pressure 126/76 09/09/2018 9:22 AM CDT Pulse 111 09/09/2018 9:22 AM CDT Temperature 36.6 ??C (97.8 ??F) 09/09/2018 9:22 AM CD T Respiratory Rate - - Oxygen Saturation 98% 09/09/2018 9:22 AM CDT Inhaled Oxygen Concentration - - Weight 70.8 kg (156 lb) 09/09/2018 9:22 AM CDT Height 167.6 cm (5' 6 ) 09/09/2018 9:22 AM CDT Body Mass Index 25.18 09/09/2018 9:22 AM CDT documented in this encounter Patient Instructions * Patient Instructions* Elías Muhammad DO - 09/09/2018 9:00 AM CDT -Trial of Skelaxin as prescribed. -Avoid chiropractic and self-manipulation of the cervical spine. -Start isometric cervical exercises as directed. -See back in 2 weeks to re-assess. documented in this encounter Progress Notes * Elías Muhammad DO - 09/09/2018 9:00 AM CDT [facility] [address] [place] [address] SUBJECTIVE: Chief Complaint Patient presents with ??? Neck Pain Here today with chronic h/o neck / headache pain. Michelle Gomez is a 33 y.o. female here today for initial evaluation of BILAT neck pain that started over 2 years ago. Michelle reports she has always had headaches and the neck pain usually comes with it. She states the pain starts in her neck and causes the headaches. She currently sees Dr. Adkins and has had an MRI of her brain and cervical spine xrays. Michelle has seen a chiropractor without relief. Pain increases with prolonged driving and sleeping wrong. Better with medication, sleep and ice. Taking Imitrex as needed and nortriptyline daily. Please see scanned patient intake form for additional HPI details. Review of systems- Reviewed and discussed today. Please see scanned intake form for comprehensive systems review. MEDICATION: Current Outpatient Prescriptions: ??? amoxicillin (AMOXIL) 500 MG capsule, Take 1 capsule by mouth 2 (two) times daily for 10 days., Disp: 20 capsule, Rfl: 0 ??? levonorgestrel (MIRENA, 52 MG,) [...] ??? nortriptyline (PAMELOR) 10 MG capsule, Take 4 capsules by mouth nightly. ., Disp: 90 capsule, Rfl: 6 ??? SUMAtriptan succinate (IMITREX) 100 MG tablet, TAKE 1 TABLET BY MOUTH TWICE DAILY NEEDED, Disp: 9 tablet, Rfl: 5 Family History Problem Relation Age of Onset ??? Diabetes Paternal Grandmother ??? Diabetes Paternal Grandfather ??? Celiac disease Mother ??? Migraines Father ??? Cancer Neg Hx ??? Heart disease Neg Hx Past Surgical History: Procedure Laterality Date ??? CARPAL TUNNEL RELEASE Left 09/12/2015 Left hand carpal tunnel release./[place] ??? CARPAL TUNNEL RELEASE Right 10/24/2015 Right hand carpal tunnel release./[place] ??? FOOT SURGERY Left bunionectomy Past Medical History: Diagnosis Date ??? Acute sinusitis ??? Carpal tunnel syndrome ??? Gastroenteritis ??? Headache ??? Migraines ??? Panic attack There is no immunization history on file for this patient. PROBLEM LIST: Patient Active Problem List Diagnosis ??? Migraines ??? Panic attack ??? Seborrheic keratoses ??? Encounter for management of intrauterine contraceptive device (IUD) OBJECTIVE: BP 126/76 Pulse 111 Temp 36.6 ??C (97.8 ??F) (Tympanic) Ht 1.676 m (5' 6 ) Wt 70.8 kg (156 lb) SpO2 98% BMI 25.18 kg/m?? Body mass index is 25.18 kg/m??. Physical Exam Intake note and vitals reviewed. Constitutional- well-developed, well-nourished, and in no distress. Mental status- alert and cooperative. Psych- mood and affect appropriate. Head, Face- normocephalic, atraumatic, facies symmetric without weakness. Neck- symmetric, supple, trachea normal. Lymph- no cervical or supraclavicular LAD or tenderness. Cardiovascular- no upper extremity soft tissue swelling or edema distally, radial pulse 2+ and intact bilaterally. Skin- warm, dry and intact cervical spine, upper back and upper extremities without erythema, rashes or lesions. Neurologic- sensation to light tactile stimulation intact grossly intact upper extremity bilaterally. Neuromotor strength at the shoulder, elbow, forearm and hand are 5/5 bilaterally. DTRs at the biceps, triceps and brachioradialis are 2+/4+ bilaterally. Cervical Spurling's is negative bilaterally.Gait is normal. MSK-cervicothoracic exam finds no visible swelling, discoloration or deformity. There is mild diffuse tenderness palpation along the left lateral cervical masses today. Mild parvertebral spasm noted left greater than right. No appreciable spasm. She has full cervical range of motion with directions. No upper extremity motion or strength deficits today[place] [address] ?? DIAGNOSTIC IMAGING ?? Name: MICHELLE GOMEZ ? Ordering Phys: KATHY ADKINS Age: 33 ?Date of : 1985 ? Accession Number: [id number] Date of Service:08/19/2018 ?? Gender: F ?? [...] T: ??08/19/2018 12:19 PM ?? Report ID: [id number] Reading Location: ??[id number] ?? ASSESSMENT: Chronic nonradicular cervical pain with associated tension type headache. 1. Chronic neck pain 2. Neck muscle spasm PLAN: -Pertinent imaging reviewed and discussed in the office today. -Education provided along with discussion of likely diagnoses and management options and scenarios. -Trial of Skelaxin as prescribed. -Avoid chiropractic and self-manipulation of the cervical spine. -Start isometric cervical exercises as directed. -See back in 2 weeks to re-assess. Return in about 2 weeks (around 09/23/2018). Medications ordered this visit: Requested Prescriptions Signed Prescriptions Disp Refills ??? metaxalone (SKELAXIN) 800 MG tablet 30 tablet 0 Si tab oral three times daily for neck pain and spasm. Other Orders placed this visit: No orders of the defined types were placed in this encounter. Patient Instructions -Trial of Skelaxin as prescribed. -Avoid chiropractic and self-manipulation of the cervical spine. -Start isometric cervical exercises as directed. -See back in 2 weeks to re-assess. Elías Muhammad DO This document was dictated using Graphenicson; demurrage man variances may occur. 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
--- OUTSIDE RECORDS SUMMARY | 2024-11-30 10:20 | XMS_ITS | Encounter Summary ---
Author Organization [facility] Address [address] [place] [address] Care Team Providers Care Project Asst Name Role Phone Delonte Marin MD Primary Care Provider +1- [phone] Reason for Visit * Reason Comments Sore Throat Encounter Details Date Type Department Care Team ([facility] st Contact Info) Description 09/13/2018 11:30 AM CDT Office Visit [facility] [address] [place] [address] Jessica Collins, WARDSPERSON [address] [place] [address] Acute bacterial pharyngitis (Primary Dx); Sore throat Social History Tobacco [...] Reading Time Taken Comments Blood Pressure 124/80 09/13/2018 12:03 PM CDT Pulse 104 09/13/2018 12:03 PM CDT Temperature 36.2 ??C (97.1 ??F) 09/13/2018 12:03 PM C DT Respiratory Rate - - Oxygen Saturation 97% 09/13/2018 12:03 PM CDT Inhaled Oxygen Concentration - - Weight 70.6 kg (155 lb 9.6 oz) 09/13/2018 12:03 PM CDT Height - - Body Mass Index 25.11 09/09/2018 9:22 AM CDT documented in this encounter Patient Instructions * Patient Instructions* KarinaJessica NP - 09/13/2018 12:10 PM CDT Images from the original note [...] cup of warm water. ?? Take an dbgk-sxn-hgotpah pain medicine, such as acetaminophen (Tylenol), ibuprofen (Advil, Motrin), or naproxen (Aleve). Read and follow all instructions on the label. ?? Be careful when taking gpso-ifh-hpnogxj cold or flu medicines and Tylenol at [...] may help decrease throat pain. ?? Use gnmt-pmh-nqjfjyn throat lozenges to soothe pain. Regular cough [...] option found under the Resources tab in [employer] [email or web address] If you do not have access to [employer], you can visit [email or web address] and select [employer] from the menu on the left. Enter U420 in the searchbox to learn more about Sore Throat: Care Instructions. Not on [employer]? Go to [email or web address] and click the Sign Up Now linkto request an activation code. Current as of: February 12, 2018 Content Version: 11.8 ?? 2021-7322 [employer]. Care instructions adapted under license by your healthcare professional. This care instruction is for use with your licensed healthcare professional. If you have questions about a medical condition or this instruction, always ask your healthcare professional. [facility] disclaims any warranty or liability for your use of this information. documented in this encounter Progress Notes * Jessica Collins NP - 09/13/2018 11:30 AM CDT Subjective: Chief Complaint Patient presents with ??? Sore Throat Michelle Gomez is a 33 y.o. female who presents to the walk-in clinic for evaluation of sore throat. Associated symptoms include chills, dry cough, hoarseness, post nasal drip, sore throat and swollen glands. Onset of symptoms was 3 days ago, and have been gradually worsening since that time. She is drinking plenty of fluids. She has had a recent close exposure to someone with proven streptococcal pharyngitis. Patient's problem list, medications, allergies, past medical, surgical, social and family historieswere reviewed and updated as appropriate. Review of Systems A comprehensive review of systems was negative except for: Constitutional: positive for chills, fatigue, fevers and malaise Ears, nose, mouth, throat, and face: positive for earaches, nasal congestion and sore throat Respiratory: positive for cough Objective: BP 124/80 (BP Location: [facility] [place], [place] Position: sitting, BP Cuff Size: Reg) Pulse 104 Temp 36.2 ??C (97.1 ??F) (Tympanic) Wt 70.6 kg (155 lb 9.6 oz) SpO2 97% BMI 25.11 kg/m?? General: alert, appears stated age, cooperative and no distress Mouth: abnormal findings: exudates present and moderate oropharyngeal erythema Neck: mild anterior cervical adenopathy, supple, symmetrical, trachea midline and thyroid not enlarged, symmetric, no tenderness/mass/nodules. Laboratory Strep test done. Results:negative Assessment: Acute Pharyngitis, likely bacterial pharyngitis Plan: Take all of your antibiotic as prescribed. Increase fluids. Honey. Warm salt water gargles. Rest. Do not share beverages or snacks/foods with others. Replace your toothbrush. If your symptoms do not improve or become worse, please call the office. Patient placed on antibiotics. Use of OTC analgesics recommended as well as salt water gargles. Use of decongestant recommended. Patient advised that he will be infectious for 24 hours after starting antibiotics. Follow up as needed. Patients PCP is: Dr. 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 Author Use sunscreen daily Lifestyle No Divya Cr RN Frequent Skin Checks Lifestyle No Divya Cr RN documented as of this encounter Procedures Procedure Name Priority Date/Time Associated Diagnosis Comments AMB POCT RAPID STREP A Routine 09/13/2018 Sore throat documented in this encounter Results * AMB POCT Rapid Strep A (09/13/2018) Rapid Strep A Screen Negative Negative [facility] POCTS 09/13/2018 Jessica Collins WARDSPERSON POINT OF CARE TEST ORDERABLES Final Result [facility] POCTS documented in this encounter Visit Diagnoses Diagnosis Acute bacterial pharyngitis- Primary Acute pharyngitis Sore throat Acute pharyngitis documented in this encounter Care Teams Project Asst Relationship Specialty Start Date End Date Delonte Marin MD [address] [facility] [address] [place] [address] PCP - General Podiatry 08/23/15 documented as of this encounter
--- OUTSIDE RECORDS SUMMARY | 2024-11-30 10:20 | XMS_ITS | Encounter Summary ---
Author Organization [facility] Address [address] [place] [address] Care Team Providers Care Greeting Card Maker Name Role Phone Delonte Marin MD Primary Care Provider [phone]- [phone] Reason for Visit * Reason Comments New Patient Migraines * Referral (Less than 2 months) - Closed Specialty Diagnoses / Procedures Referred By Tommie t Referred To Contact Neurology Diagnoses Worsening headaches Chloe Benson CNM Phone: tel: fax: Delonte Farfan MD [address] [place] [address] Phone: tel: fax: Referral ID Status Reason Start Date Expiration Date V isits Requested Visits Authorized [id number] Closed Specialty Services Required 02/19/2018 02/19/2019 1 1 Encounter Details Date Type Department Care Team (Late st Contact Info) Description 03/12/2018 8:30 AM CDT Office Visit [facility] Neurology [address] [place] [phone] Delonte Farfan MD [address] [place] [address] Chronic migraine without aura without status migrainosus, not intractable (Primary Dx); Spells of decreased attentiveness Social History Tobacco [...] Sign Reading Time Taken Comments Blood Pressure 128/72 03/12/2018 8:50 AM CDT Pulse - - Temperature - - Respiratory Rate 18 03/12/2018 8:50 AM CDT Oxygen Saturation - - Inhaled Oxygen Concentration - - Weight 71.7 kg (158 lb) 03/12/2018 8:50 AM CDT Height 167.6 cm (5' 6 ) 03/12/2018 8:50 AM CDT Body Mass Index 25.5 03/12/2018 8:50 AM CDT documented in this encounter Progress Notes * Delonte Farfan MD - 03/12/2018 8:[address] Tomas Martinez is here with reports of migraines that she has had since she was about 14- 15 years old, but have significantly worsened recently. Migraine questionnaire completed. Maritza GRACIA. Subjective: Patient ID: Michelle Gomez is a 32 y.o. female. HPI This is a 32-year-old white female sent to us today by Yue's nurse practitioner and Dr. Marin her primary care provider for evaluation and opinion and recommendations regarding migraines. She has been having headaches since she was 14 or 15 years old. She has about 10 headache days a month and these are usually associated with her menstrual cycle she is found. When she gets a headacheand will generally last all day that is to say 24 hours. Severity is variable 7 or 8 maximum. Theseare fairly global not generally unilateral. Throbbing character is noted. Aggravated by activity. As sociated with nausea and vomiting. Sensitivity to light and sound is noted. She does occasionally miss activities as a result. This is a significant derangement. She does not frequent the emergency room. She sometimes is taking headache medicine every day. Hence his pain abortive agent). She is used Imitrex Tylenol ibuprofen and Excedrin with variable benefits. She also has some episodes last about 15 seconds which are she describes as panic attacks . These episodes of been going on over the past one year. It occurred prior to the placement of her IUD. Usually occurs when she is in the bathroom. No other triggering features. She will feel at the time herheart racing and nauseous. It will last for about 15 seconds and afterward she has a vague out of body feeling and frequently within the diminished R to afterwards she will start to get a migrainous type throbbing headache. Usually global bi- temporal and vertex. For these she is had various medicines tried. She saw Dr. chacko. She tried some agents. Nothing helps. She is having these events about every month. Not clearly definitely associated with her menstrual cycle. She describes some occasional OCD traits. Working with managing that. Doing well. Get treadmill recently. She is been exercising on that doing that for about a month. 3 times a week. Thyroid is been checked previously. Last one was January 30. Patient's problem list, medications, allergies, past medical, surgical, social and family historieswere reviewed and updated as appropriate. Patient Active Problem List Diagnosis ??? Migraines ??? Panic attack ??? Seborrheic keratoses Patient Active Problem List Diagnosis Date Noted ??? Seborrheic keratoses 01/20/2018 ??? Migraines 01/14/2018 ??? Panic attack 01/14/2018 Past Medical History: Diagnosis Date ??? Acute sinusitis ??? Carpal tunnel syndrome ??? Gastroenteritis ??? Headache ??? Migraines ??? Panic attack Past Surgical History: Procedure Laterality Date ??? CARPAL TUNNEL RELEASE Left 09/12/2015 Left hand carpal tunnel release./[place] ??? CARPAL TUNNEL RELEASE Right 10/24/2015 Right hand carpal tunnel release./[place] ??? FOOT SURGERY Left bunionectomy Family History Problem Relation Age [...] Sexual activity: Yes Partners: Male control/ protection: IUD Comment: Mirena inserted Other Topics Concern ??? Bike Helmet Yes ??? Caffeine Use Yes ??? Exercise Yes ??? Seat Belt/Car Seat Yes Social History Narrative ??? None Current Outpatient Prescriptions Medication Sig Dispense Refill ??? ondansetron (ZOFRAN-ODT) 8 MG disintegrating tablet Take 1 tablet by mouth every 8 (eight) hours as needed for Nausea. 15 tablet 1 ??? SUMAtriptan succinate (IMITREX) 100 MG tablet Take 100 mg by mouth 2 (two) times daily as needed. 5 No current facility-administered medications for this visit. Current Outpatient Prescriptions on File Prior to Visit Medication Sig Dispense Refill ??? ondansetron (ZOFRAN-ODT) 8 MG disintegrating tablet Take 1 tablet by mouth every 8 (eight) hours as needed for Nausea. 15 tablet 1 ??? SUMAtriptan succinate (IMITREX) 100 MG tablet Take 100 mg by mouth 2 (two) times daily as needed. 5 No current facility-administered medications on file [...] systems reviewed and are negative. Objective: BP 128/72 Resp 18 Ht 1.676 m (5' 6 ) Wt 71.7 kg (158 lb) BMI 25.50 kg/m?? Body mass index is 25.5 kg/m??. Physical Exam Appears stated age. Pleasant affable conversant and in no apparent distress. No anomia, no aphasia, no dysarthria. Good Registry and recall. Excellent historian. Psychologically the patient shows good insight and judgment. There is no circumstantiality or tangentiality, no pressured speech, no blunting of affect. The patient does not appear outwardly depressed. The patient appears psychologically within normal limits. Cranial nerve examination reveals pupils equal, round, reactive to light and accommodation, extraocular eye movements are intact, visual rios are full. Positive corneal responses are noted. All three branches of the trigeminal nerve are intact to pinprick, light touch and temperature sensation bilaterally throughout. Facies are symmetric. Uvula lindsey midline, tongue protruded midline. Sternocleidomastoid and trapezius were full. Temporalis and masseter strength were full. Motor examination reveals 5/5 strength bilaterally throughout. Normal bulk and tone. Deep tendon reflexes 2+ bilaterally throughout. Plantar responses were flexor bilaterally. Sensory examination was intact to pinprick, light touch and temperature sensation bilaterally throughout. Cerebellar examination revealed good zicevu-qu-ndtl, zdix-dj-lofq and rapid alternating movements. Gait was within normal limits, patient was able to walk on heels and toes without difficulty, and perform tandem gait without difficulty. HEAD: Normocephalic, atraumatic. NECK: Supple, full range of motion. Good flexion, extension, rotation and lateral bending. No ausculable bruits. LYMPHATICS: No lymphadenopathy cervical, supraclavicular, infraclavicular, pectoral, axillary or inguinal. EYES: Conjunctiva and sclera clear. Funduscopic examination revealed sharp disc margins bilaterally. ENT: Tragus and Pinnae clear. Tympanic membranes were clear. Oropharynx clear. Nares clear. HEART: Regular rate and rhythm. LUNGS: Clear to auscultation bilaterally. ABDOMEN: Soft, nontender. EXTREMITIES: Without clubbing, cyanosis or edema. SKIN: Without neurocutaneous manifestation. Assessment/Orders: Diagnoses and all orders for this visit: Chronic migraine without aura without status migrainosus, not intractable - nortriptyline (PAMELOR) 10 MG capsule; Take 1 capsule by mouth as directed. Take1 pill by mouth at night for 10 days, then take 2 pills at night for 10 days, then take 3 pills at night thereafter. - MRI Brain wo Contrast; Future Spells of decreased attentiveness Plan: #1 migraine headaches. Artificial number of balance and with some of the #2 spells--probable panic attacks. Cannot exclude other possibilities. Immediate migraine afterwards. The nature of the events do not suggest epileptiform activity. That could be investigated. I think an EEG would be low yield. She has had MR neuro imaging of the brain. But that was many many yearsago. We could consider repeat MR neuro imaging. Consider also other factors that can contribute to spells such as this. Pheochromocytoma/multiple endocrine neoplasia, etc. If she is having more more panic attacks are noticed cardiac dysrhythmias we can consider 30 day event monitor cardiology evaluation. I do not think that so case. Thank you's nortriptyline will be fine. documented in this encounter Plan of Treatment [...] symptoms documented in this encounter Care Teams Greeting Card Maker Relationship Specialty Start Date End Date Delonte Marin MD [facility] [address] [place] [address] PCP - General Podiatry 08/23/15 documented as of this encounter
--- OUTSIDE RECORDS SUMMARY | 2024-11-30 10:20 | XMS_ITS | Encounter Summary ---
Author Organization [employer] Address [address] [place] [address] Care Team Providers Care Clin Nurse Name Role Phone Delonte Marin MD Primary Care Provider +1- [phone] Reason for Visit * Reason Onset Date Comments Medication Question (Request) 08/21/2018 Encounter Details Date Type Department Care Team ([facility] st Contact Info) Description 08/21/2018 Telephone [facility] Neurology [address] [place] [address] Josh Wright, RN [address] [place] [address] Medication Question (Request) Social History Tobacco Use Types Packs/Day Years [...] encounter Miscellaneous Notes * Telephone Encounter - Josh Wright RN - 08/21/2018 1:09 PM CDT Pt. Called in requesting medication prescription sent in as per recent vist with Dr. Farfan. I clarified the order and sent to her pharmacy. Kaylin Wright RN. documented in this encounter Plan of Treatment Not on file documented as of this encounter Goals Goal Patient Goal Type Associated Problems Recent Progress Patient-Stated? Author Use sunscreen daily Lifestyle No Divya Cr, RN Frequent Skin Checks Lifestyle No Divya Cr, RN documented as of this encounter Visit Diagnoses Not on filedocumented in this encounter Care Teams Clin Nurse Relationship Specialty Start Date End Date Delonte Marin MD [address] [facility] [address] [place] [address] PCP - General Podiatry 08/23/15 documented as of this encounter
--- OUTSIDE RECORDS SUMMARY | 2024-11-30 10:20 | XMS_ITS | Encounter Summary ---
Author Organization [employer] Address [address] [place] [address] Care Team Providers Care Chlorination Operator Name Role Phone Kathy Marin MD Primary Care Provider +1- [phone] Reason for Visit * Reason Comments Migraine * MRI/CAT Scan (Routine) - Closed Specialty Diagnoses / Procedures Referred By Contac t Referred To Contact Radiology Diagnoses Chronic migraine Procedures MRI Brain wo Contrast Kathy Adkins MD [address] [place] [address] Phone: tel: fax: Referral ID Status Reason Start Date Expiration Date Visits Re quested Visits Authorized [id number] Closed 06/03/2018 06/03/2019 1 1 Encounter Details Date Type Department Care Team ([facility] st Contact Info) Description 06/12/2018 6:00 PM CDT Clinical Support [facility] [address] [place] [phone] Kathy Adkins MD [address] [place] [address] Jonelle Gomez, RTR [address] [place] [address] Chronic migraine Social History Tobacco Use Types [...] Diagnosis Comments MRI BRAIN WO CONTRAST Routine 06/12/2018 5:59 PM CDT Chronic migraine documented in this encounter Results * MRI Brain wo Contrast (06/12/2018 5:59 PM CDT) Anatomical Region Laterality Modality Head Magnetic Resonan ce 06/12/2018 5:59 PM CDT Narrative 06/13/2018 10:01 [place] [address] DIAGNOSTIC IMAGING Name: MICHELLE GOMEZ ? Ordering Phys: KATHY ADKINS Age: 32 ?Date of : 1985 ? Accession Number: [id number] Date of Service:06/12/2018 ?? Gender: F EXAM DESCRIPTION: ??MRI BRAIN WO CONTRAST REASON FOR STUDY: ??See Additional Indications Above ? Indication Not Found, PERERA Lifelong headaches with recent worsening over the past year. ??No known injury. COMPARISON: ?? None available. TECHNIQUE: ??Multiplanar imaging includes non-contrasted T1, T2, FLAIR, and diffusion with ADC map sequences. Additional sequence(s) sensitive to blood products. Images stored on PACS. FINDINGS: ??CEREBRUM: No hemorrhage, edema, or mass effect. WHITE MATTER: Normal. POSTERIOR FOSSA: Brainstem and cerebellum appear unremarkable. DIFFUSION IMAGING: No recent infarction. EXTRAAXIAL SPACES: No hemorrhage. ??No mass. BRAIN VOLUME: Within normal limits for age. PITUITARY: Unremarkable. VASCULATURE: No flow disturbance identified. ORBITS: No masses. Globes normal. PARANASAL SINUSES AND MASTOIDS: There is trace mucosal thickening in the left sphenoid sinus. OTHER: No other significant finding. IMPRESSION: ??No focal abnormality identified to explain the patient's symptoms THIS IS AN ELECTRONICALLY VERIFIED FINAL REPORT 06/13/2018 9:58 AM - Electronically signed by Ninfa Gonzalez M.D., M.D., D.O. MW: ELI D: ??06/13/2018 9:58 AM T: ??06/13/2018 9:58 AM Report ID: [id number] Reading Location: ??[id number] Procedure Note Jr Gerard DO - 06/13/2018 [place] [address] DIAGNOSTIC IMAGING Name: MICHELLE GOMEZ Ordering Phys: KATHY ADKINS Age: 32 Date of : 1985 Accession Number: [id number] Date of Service:06/12/2018 Gender: F EXAM DESCRIPTION: MRI BRAIN WO CONTRAST REASON FOR STUDY: See Additional Indications Above ? Indication Not Found, PERERA Lifelong headaches with recent worsening over the past year. No known injury. COMPARISON: None available. TECHNIQUE: Multiplanar imaging includes non-contrasted T1, T2, FLAIR, and diffusion with ADC map sequences. Additional sequence(s) sensitive to blood products. Images stored on PACS. FINDINGS: CEREBRUM: No hemorrhage, edema, or mass effect. WHITE MATTER: Normal. POSTERIOR FOSSA: Brainstem and cerebellum appear unremarkable. DIFFUSION IMAGING: No recent infarction. EXTRAAXIAL SPACES: No hemorrhage. No mass. BRAIN VOLUME: Within normal limits for age. PITUITARY: Unremarkable. VASCULATURE: No flow disturbance identified. ORBITS: No masses. Globes normal. PARANASAL SINUSES AND MASTOIDS: There is trace mucosal thickening in the left sphenoid sinus. OTHER: No other significant finding. IMPRESSION: No focal abnormality identified to explain the patient's symptoms THIS IS AN ELECTRONICALLY VERIFIED FINAL REPORT 06/13/2018 9:58 AM - Electronically signed by Ninfa Gonzalez M.D., M.D., D.O. MW: ELI Report ID: [id number] Reading Location: [id number] Kathy Adkins MD [facility] MRI ORDERABLES Final Result documented in this encounter Visit Diagnoses Diagnosis Chronic migraine Chronic migraine without aura, without mention of intractable migraine without mention of status migrainosus documented in this encounter Care Teams Chlorination Operator Relationship Specialty Start Date End Date Kathy Marin MD [address] [facility] [address] [place] [address] PCP - General Podiatry 08/23/15 documented as of this encounter
--- OUTSIDE RECORDS SUMMARY | 2024-11-30 10:20 | XMS_ITS | Encounter Summary ---
Author Organization [employer] Address [address] [place] [address] Care Team Providers Care Regional Sales Manager Name Role Phone Kathy Marin MD Primary Care Provider +1- [phone] Reason for Visit * Reason Onset Date Comments Neck Pain 08/18/2018 Encounter Details Date Type Department Care Team ([facility] st Contact Info) Description 08/18/2018 Telephone [facility] Neurology [address] [place] [address] Octavia Root CMA [address] [place] [address] Neck Pain Social History Tobacco Use Types Packs/Day Years [...] Telephone Encounter - Octavia Root CMA - 08/18/2018 1:36 PM CDT Patient called and stated that she is having constant neck pain, would like to have more images down. I discussed with Dr Adkins and he is ordering xray cervical spine flexion extension and to make sure increase her nortriptyline. VPU.. MRichANA MARÍA arellano documented in this encounter Plan of Treatment Not on file documented as of this encounter Goals Goal Patient Goal Type Associated Problems Recent Progress Patient-Stated? Author Use sunscreen daily Lifestyle No Divya Cr RN Frequent Skin Checks Lifestyle No Divya Cr RN documented as of this encounter Results * XR Cervical Spine Complete 6 or More Views (08/19/2018 9:14 AM CDT) Anatomical Region Laterality Modality C-spine, T-spine, Neck Radiograp hic Imaging 08/19/2018 9:14 AM CDT Narrative 08/19/2018 12:22 [place] [address] DIAGNOSTIC IMAGING Name: MICHELLE GOMEZ ? Ordering Phys: KATHY ADKINS Age: 33 ?Date of : 1985 ? Accession Number: [id number] Date of Service:08/19/2018 ?? Gender: F EXAM DESCRIPTION: ?? XR CERVICAL SPINE COMPLETE 6 OR MORE VIEWS REASON FOR STUDY: ??NECK PAIN NKI, pain to posterior neck and headaches, off and on x1 year. ??Seems to be getting worse. TECHNIQUE: ??7 radiographic views acquired of the cervical spine. COMPARISON: ??None FINDINGS: ??The bone mineralization is normal. ??No acute fracture or prevertebral soft tissue swelling is seen. ??The osseous neural foramina are patent. ??There straightening of the normal cervical lordosis with grade 1 anterolisthesis of C3 on C4. ??With flexion and extension radiographs, there is mild laxity at C3-C4. IMPRESSION: ??No acute osseous abnormality. ??Straightening of the normal cervical lordosis with grade 1 anterolisthesis of C3 on C4. THIS IS AN ELECTRONICALLY VERIFIED FINAL REPORT 08/19/2018 12:19 PM - Electronically signed by Eduardo Bhandari M.D. JR: D: ??08/19/2018 12:19 PM T: ??08/19/2018 12:19 PM Report ID: [id number] Reading Location: ??[id number] Procedure Note Eduardo Bhandari MD - 08/19/2018 [id number] [place] [address] DIAGNOSTIC IMAGING Name: MICHELLE GOMEZ Ordering Phys: KATHY ADKINS Age: 33 Date of : 1985 Accession Number: [id number] Date of Service:08/19/2018 Gender: F EXAM DESCRIPTION: XR CERVICAL SPINE COMPLETE 6 OR MORE VIEWS REASON FOR STUDY: NECK PAIN NKI, pain to posterior neck and headaches, off and on x1 year. Seems to be getting worse. TECHNIQUE: 7 radiographic views acquired of the cervical spine. COMPARISON: None FINDINGS: The bone mineralization is normal. No acute fracture or prevertebral soft tissue swelling is seen. The osseous neural foramina are patent. There straightening of the normal cervical lordosis with grade 1 anterolisthesis of C3 on C4. With flexion and extension radiographs, there is mild laxity at C3-C4. IMPRESSION: No acute osseous abnormality. Straightening of the normal cervical lordosis with grade 1 anterolisthesis of C3 on C4. THIS IS AN ELECTRONICALLY VERIFIED FINAL REPORT 08/19/2018 12:19 PM - Electronically signed by Eduardo Bhandari M.D. JR: Report ID: [id number] Reading Location: [id number] Kathy Adkins MD IMG DIAGNOSTIC IMAGING OR DERABLES Final Result documented in this encounter Visit Diagnoses Diagnosis Neck pain- Primary Cervicalgia Neck pain Cervicalgia documented in this encounter Care Teams Regional Sales Manager Relationship Specialty Start Date End Date Kathy Marin MD [address] [facility] [address] [place] [address] PCP - General Podiatry 08/23/15 documented as of this encounter
--- OUTSIDE RECORDS SUMMARY | 2024-11-30 10:20 | XMS_ITS | Encounter Summary ---
Author Organization [employer] Address [address] [place] [address] Care Team Providers Care Prop Cutter Name Role Phone Kathy Marin MD Primary Care Provider +1- [phone] Reason for Referral * MRI/CAT Scan (Routine) - Closed Specialty Diagnoses / Procedures Referred By Tommie jara Referred To Contact Radiology Diagnoses Chronic migraine Procedures MRI Brain wo Contrast Kathy Adkins MD [address] [place] [address] Phone: tel: fax: Referral ID Status Reason Start Date Expiration Date Visits Re quested Visits Authorized [id number] Closed 06/03/2018 06/03/2019 1 1 Encounter Details Date Type Department Care Team ([facility] st Contact Info) Description 06/03/2018 Orders Only [facility] Neurology [address] [place] [phone] Martha Hill RN [address] [place] [address] Chronic migraine (Primary Dx) Social History Tobacco Use [...] as of this encounter Results * MRI Brain wo Contrast (06/12/2018 5:59 PM CDT) Anatomical Region Laterality Modality Head Magnetic Resonan ce 06/12/2018 5:59 PM CDT Narrative 06/13/2018 10:01 [place] [address] DIAGNOSTIC IMAGING Name: MICHELLE GOMEZ ? Ordering Phys: KATHY ADKINS Age: 32 ?Date of : 1985 ? Accession Number: [id number] Date of Service:06/12/2018 ?? Gender: F EXAM [...] 06/13/2018 9:58 AM - Electronically signed by Jr Gerard M.D., D.O. Jr Gerard M.D., D.O. MW: ELI D: ??06/13/2018 9:58 AM T: ??06/13/2018 9:58 AM Report ID: [id number] Reading Location: ??[id number] Procedure Note Jr Gerard DO - 06/13/2018 [place] [address] DIAGNOSTIC IMAGING Name: MICHELLE GOMEZ Ordering Phys: KATHY ADKINS Age: 32 Date of : 1985 Accession Number: [id number] Date of Service:06/12/2018 Gender: F EXAM DESCRIPTION: [...] 06/13/2018 9:58 AM - Electronically signed by Jr Gerard M.D., D.O. Jr Gerard M.D., D.O. MW: ELI Report ID: [id number] Reading Location: [id number] Kathy Adkins MD IM MRI ORDERABLES Final Result documented in this encounter Visit Diagnoses Diagnosis Chronic migraine- Primary Chronic migraine without aura, without mention of intractable migraine without mention of status migrainosus Chronic migraine Chronic migraine without aura, without mention of intractable migraine without mention of status migrainosus documented in this encounter Care Teams Prop Cutter Relationship Specialty Start Date End Date Kathy Marin MD [address] [facility] [address] [place] [address] PCP - General Podiatry 08/23/15 documented as of this encounter
--- OUTSIDE RECORDS SUMMARY | 2024-11-30 10:20 | XMS_ITS | Encounter Summary ---
Author Organization [employer] Address [address] [place], [place] [address] Care Team Providers Care Strand Buncher Fine Wire Name Role Phone Delonte Marin MD Primary Care Provider +1- [phone] Reason for Visit * Reason Comments Medication Refill Encounter Details Date Type Department Care Team (Late st Contact Info) Description 04/06/[address] [place] [address] Delonte Marin MD [address] [place] [address] 20[address] [place] [address] Social History Tobacco Use Types [...] on filedocumented in this encounter Care Teams Strand Buncher Fine Wire Relationship Specialty Start Date End Date Delonte Marin MD [address] [place] [address] 20[address] [place] [address] PCP - General Podiatry 08/23/15 documented as of this encounter
--- OUTSIDE RECORDS SUMMARY | 2024-11-30 10:20 | XMS_ITS | Encounter Summary ---
Author Organization [email or web address] Address [address] [place] [address] Care Team Providers Care Medical Territory Manager Name Role Phone Delonte Marin MD Primary Care Provider +1- [phone] Reason for Visit * Reason Onset Date Comments Medication Management 09/30/2018 Encounter Details Date Type Department Care Team ([facility] st Contact Info) Description 09/30/2018 Telephone [facility] Neurology [address] [place] [address] Octavia Root CMA [address] [place] [address] Medication Management Social History Tobacco Use Types Packs/Day Years [...] Telephone Encounter - Octavia Root CMA - 09/30/2018 3:09 PM INTEGRATED PROGRAM TEACHER Patient called and stated that new medication is not working , she would like to sticj with Imitrex. Will discuss with Dr Farfan. COURTNEY. ANA MARÍA Cheng GRATED PROGRAM TEACHER documented in this encounter Plan of Treatment Not on file documented as of this encounter Goals Goal Patient Goal Type Associated Problems Recent Progress Patient-Stated? Author Use sunscreen daily Lifestyle No Divya Cr, RN Frequent Skin Checks Lifestyle No Divya Cr, RN documented as of this encounter Visit Diagnoses Not on filedocumented in this encounter Care Teams Medical Territory Manager Relationship Specialty Start Date End Date Delonte Marin MD [address] [facility] [address] [place] [address] PCP - General Podiatry 08/23/15 documented as of this encounter
--- OUTSIDE RECORDS SUMMARY | 2024-11-30 10:20 | XMS_ITS | Encounter Summary ---
Author Organization [employer] Address [address] [place] [address] Care Team Providers Care Private Security Guard Name Role Phone Delonte Marin MD Primary Care Provider +1- [phone] Reason for Visit * Reason Comments Medication Refill Encounter Details Date Type Department Care Team (Late st Contact Info) Description 06/17/[address] [place] [address] Delonte Marin MD [address] [place] [address] [place] [address] Social History Tobacco Use Types Packs/Day [...] encounter Miscellaneous Notes * Telephone Encounter - Sherita Princealena Montenegro, SYNTHETIC PLASTERER - 06/17/2018 9:18 AM CDT Images from the original note were not included. Heidi Echavarria Clinsu Caller: Patient (Today, ??8:40 AM) ?? Dr. Marin, RE: Med Refill Is the patient active on MyChart: No Has the patient called or been called about this issue: This is a ??first call for this issue. Medication renewal request as follows: Med: Imitrex Dose: 100mg Instructions: Take 1 tablet 2 times daily as needed Preferred Pharmacy: [facility] [id number] [place] [address] [address] [facility] [address] [facility] [phone] Is this the correct Pharmacy: Yes Have [...] on filedocumented in this encounter Care Teams Private Security Guard Relationship Specialty Start Date End Date Delonte Marin MD [address] [facility] [address]49 [place] [address] PCP - General Podiatry 08/23/15 documented as of this encounter
--- OUTSIDE RECORDS SUMMARY | 2024-11-30 10:20 | XMS_ITS | Encounter Summary ---
Author Organization [employer] Address [address] [place], [place] [address] Care Team Providers Care Bow Machine Operator Name Role Phone Delonte Marin MD Primary Care Provider +1- [phone] Reason for Visit * Reason Comments Headache due to menses Encounter Details Date Type Department Care Team (Latest Contact Info) Description 06/04/2018 1:30 PM CDT Office Visit [facility] [address] [place] [address] Chloe Benson CNM [address] [place] [address] Menstrual migraine without status migrainosus, not intractable (Primary Dx); Elevated blood pressure reading; Encounter for management of intrauterine contraceptive device (IUD), unspecified IUD management type Social History Tobacco Use Types Packs/Day [...] Sign Reading Time Taken Comments Blood Pressure 142/90 06/04/2018 1:43 PM CDT Pulse 80 06/04/2018 1:43 PM CDT Temperature 36.6 ??C (97.8 ??F) 06/04/2018 1:43 PM CD T Respiratory Rate 16 06/04/2018 1:43 PM CDT Oxygen Saturation 98% 06/04/2018 1:43 PM CDT Inhaled Oxygen Concentration - - Weight 70.4 kg (155 lb 3.2 oz) 06/04/2018 1:43 P M CDT Height 166.4 cm (5' 5.5 ) 06/04/2018 1:43 PM CDT Body Mass Index 25.43 06/04/2018 1:43 PM CDT documented in this encounter Patient Instructions * Patient Instructions* Chloe Benson CNM - 06/04/2018 1:30 PM CDT Patients PCP is: Dr. Tomas MD [address] [place] [address] documented in this encounter Progress Notes * Octavia Carrizales CMA - 06/04/2018 1:30 PM CDT SUBJECTIVE: CC: Chief Complaint Patient presents with ??? Headache due to menses HPI: patient is here to discuss having headaches during her menstrual cycle. Pain in the right side of her neck to her adventist around to her right eye. She has an appointment next week for an MRI per Dr. Farfan. Her control is her Mirena IUD inserted February 2017. Working well and menses are nonproblematic ROS: CONSTITUTIONAL: Negative for fatigue, chills, fever, [...] discharge, vaginal itching and history of douching. NEUROLOGICAL: Negative for dizziness, fainting, memory loss, seizures tremor and weakness. Positivefor menstrual migraines. She reports when she was a teenager she had an aura before the migraines. She reports the last 2 years her migraines have increased during her menses. She did recently started nortriptyline and is planning an MRI and follow-up with Dr. Farfan. PSYCHIATRIC: Negative for anxiety, crying spells, depression, feelings of stress, anhedonia, mood swings, premenstrual tension syndrome, recreational drug use, sadness, sleep disturbance and suicidalthoughts. She is frustrated with her debilitating migraines. She reports brief panic attacks that resolved spontaneously and quickly and no need for medications PMH/FMH/SH: Past Medical History: Past Medical History: Diagnosis Date ??? Acute sinusitis ??? Carpal tunnel syndrome ??? Gastroenteritis ??? Headache ??? Migraines ??? Panic attack Surgical History: Past Surgical History: Procedure Laterality Date ??? CARPAL TUNNEL RELEASE Left 09/12/2015 Left hand carpal tunnel release./[place] ??? CARPAL TUNNEL RELEASE Right 10/24/2015 Right hand carpal tunnel release./Justin ??? FOOT SURGERY Left bunionectomy Family History: Family History Problem [...] Outpatient Prescriptions Medication Sig Dispense Refill ??? nortriptyline (PAMELOR) 10 MG capsule Take 1 capsule by mouth as directed. Take1 pill by mouth at night for 10 days, then take 2 pills at night for 10 days, then take 3 pills at night thereafter.90 capsule 6 ??? ondansetron (ZOFRAN-ODT) 8 MG disintegrating tablet Take 1 tablet by mouth every 8 (eight) hours as needed for Nausea. 15 tablet 1 ??? SUMAtriptan succinate (IMITREX) 100 MG tablet Take 1 tablet by mouth 2 (two) times daily as needed. 9 tablet 0 No current facility-administered medications for this visit. OBJECTIVE: Vitals: Vitals: 06/04/18 1343 BP: 142/90 Pulse: 80 Resp: 16 Temp: 36.6 ??C (97.8 ??F) Exams: PHYSICAL EXAM: GENERAL: well developed and nourished; appropriately groomed; in no apparent distress; PSYCHIATRIC: appropriate affect and demeanor; normal speech pattern; grossly normal memory; ASSESSMENT 1. Menstrual migraine without status migrainosus, not intractable 2. Elevated blood pressure reading 3. Encounter for management of intrauterine contraceptive device (IUD), unspecified IUD management type ORDERS: No orders of the defined types were placed in this encounter. PLAN: She is consulting today about her menstrual migraines. She feels over the last several years they have gotten worse. She had a Mirena IUD inserted for control as controlling her periods and contraception well. She reports that when she was a teenager she had an aura with her migraines but hasnot noticed it recently. She is encouraged to use Aleve for menstrual control and headaches. She was recently started on nortriptyline by Dr. Farfan. Next week she is having an MRI. She reports having panic attacks but are very brief and nonproblematic and does not require medication. She is stopped Zoloft. We discussed options for stopping ovulation and thus stopping the rise and fall of her estrogen levels but they would require estrogen. With her history with aura and migraines that is worrisome. She will get the results of her MRI and consult with Dr. Farfan. We did talk about extended cycle with pills, patches, and rings which normally helps with menstrual migraines. She will getback with me. documented in this encounter Plan of Treatment [...] intractable migraine without mention of status migrainosus Elevated blood pressure reading Elevated blood pressure reading without diagnosis of hypertension Encounter for management of intrauterine contraceptive device (IUD), unspecified IUD management type documented in this encounter Care Teams Bow Machine Operator Relationship Specialty Start Date End Date Delonte Marin MD [address] [place] [address] 20[address] [place] [address] PCP - General Podiatry 08/23/15 documented as of this encounter
--- OUTSIDE RECORDS SUMMARY | 2024-11-30 10:20 | XMS_ITS | Encounter Summary ---
Author Organization [employer] Address [address] [place] [address] Care Team Providers Care Accounts Receivable Bookkeeper Name Role Phone Delonte Marin MD Primary Care Provider +1- [phone] Reason for Visit * Reason Onset Date Comments Medication Question (Request) 09/09/2018 Encounter Details Date Type Department Care Team ([facility] st Contact Info) Description 09/09/2018 Telephone [facility] Neurology [address] [place] [address] Josh Wright, RN [address] [place] [address] Medication Question (Request) Social History [...] Telephone Encounter - Josh Wright RN - 09/09/2018 12:52 PM CDT Pt. Called in reporting cost of Frova too high and would like alternate therapy. Dr. Farfan ordered Amerge to see if this works for her in cathy of the Frova. Lashawn Wright RN. documented in this encounter Plan of Treatment Not on file documented as of this encounter Goals Goal Patient Goal Type Associated Problems Recent Progress Patient-Stated? Author Use sunscreen daily Lifestyle No Divya Cr, RN Frequent Skin Checks Lifestyle No Divya Cr, RN documented as of this encounter Visit Diagnoses Not on filedocumented in this encounter Care Teams Accounts Receivable Bookkeeper Relationship Specialty Start Date End Date Delonte Marin MD [address] [facility] [address] [place] [address] PCP - General Podiatry 08/23/15 documented as of this encounter
--- OUTSIDE RECORDS SUMMARY | 2024-11-30 10:20 | XMS_ITS | Encounter Summary ---
Author Organization [employer] Address [address] [place] [address] Care Team Providers Care Worm Raiser Name Role Phone Kathy Marin MD Primary Care Provider +1- [phone] Reason for Visit * Reason Comments Neck Pain Encounter Details Date Type Department Care Team (Late st Contact Info) Description 08/19/2018 9:50 AM CDT Clinical Support [facility] [address] [place] [phone] Kathy Adkins MD [address] [place] [address] 2 [place] [address] Denae Cancino I, RT [address] [place] [address] Neck pain Social History Tobacco Use [...] Date/Time Associated Diagnosis Comments XR CERVICAL SPINE COMPLETE 6 OR MORE VIEWS Routine 08/19/2018 9:14 AM CDT Neck pain documented in this encounter Results * XR Cervical Spine Complete 6 or More Views (08/19/2018 9:14 AM CDT) Anatomical Region Laterality Modality C-spine, T-spine, Neck Radiograp hic Imaging 08/19/2018 9:14 AM CDT Narrative 08/19/2018 12:22 [place] [address] DIAGNOSTIC IMAGING Name: MICHELLE GOMEZ Fabi ? Ordering Phys: KATHYISA NGOTA Age: 33 ?Date of : 1985 ? Accession Number: [id number] Date of Service:08/19/2018 ?? Gender: F EXAM [...] PM T: ??08/19/2018 12:19 PM Report ID: [id number] Reading Location: ??[id number] Procedure Note Eduardo Bhandari MD - 08/19/2018 [place] [address] DIAGNOSTIC IMAGING Name: MICHELLE GOMEZ Ordering Phys: KATHY ADKINS Age: 33 Date of : 1985 Accession Number: [id number] Date of Service:08/19/2018 Gender: F EXAM DESCRIPTION: [...] by Eduardo Bhandari M.D. JR: Report ID: [id number] Reading Location: [place] [address] Kathy Adkins MD IMG DIAGNOSTIC IMAGING OR DERABLES Final Result documented in this encounter Visit Diagnoses Diagnosis Neck pain Cervicalgia documented in this encounter Care Teams Worm Raiser Relationship Specialty Start Date End Date Kathy Marin MD [address] [facility] [address] [place] [address] PCP - General Podiatry 08/23/15 documented as of this encounter
--- OUTSIDE RECORDS SUMMARY | 2024-11-30 10:20 | XMS_ITS | Encounter Summary ---
Author Organization [employer] Address [address] [place] [address] Care Team Providers Care Airline Dispatcher Name Role Phone Delonte Marin MD Primary Care Provider +1- [phone] Reason for Visit * Reason Onset Date Comments Medication Refill 03/24/2018 Encounter Details Date Type Department Care Team (Late st Contact Info) Description 03/24/[address] [place] [address] [facility] [address] [facility] [address] [place] [address] Social History Tobacco Use Types [...] Notes * Telephone Encounter - Wendi Prince [facility] - 03/24/2018 7:53 AM CDT Images from the original note were not included. [facility] Dumont [facility] Caller: pharmacy fax (Today, ??7:39 AM) ?? Provider: Tomas RE: RX Refill Request Medication renewal request as follows: Med: Sumatriptan Dose: 100 MG Tabs Instructions: Take one tablet by mouth for migraine at least 4 hours apart. Max 2 per day Preferred Pharmacy: [facility] [id number] [place] [address] [facility] of [address] [facility] [id number] Is this the correct Pharmacy: Yes Have [...] on filedocumented in this encounter Care Teams Airline Dispatcher Relationship Specialty [place] [address] [place] [address] [address] [place] [address] PCP - General Podiatry 08/23/15 documented as of this encounter
--- OUTSIDE RECORDS SUMMARY | 2024-11-30 10:20 | XMS_ITS | Encounter Summary ---
Author Organization [employer] Address [address] [place] [address] Care Team Providers Care Senior Relationship Manager Name Role Phone Delonte Marin MD Primary Care Provider +1- [phone] Reason for Visit * Reason Comments Follow-up migraines Encounter Details Date Type Department Care Team ([facility] st Contact Info) Description 08/14/2018 2:30 PM CDT Office Visit [facility] Neurology [address] [place] [phone] Delonte Farfan MD [address] [place] [address] 2 [place] [address] Chronic migraine without aura without status migrainosus, not intractable (Primary Dx); Chronic migraine; Spells of decreased attentiveness Social [...] Sign Reading Time Taken Comments Blood Pressure 130/76 08/14/2018 2:46 PM CDT Pulse 76 08/14/2018 2:46 PM CDT Temperature - - Respiratory Rate - - Oxygen Saturation - - Inhaled Oxygen Concentration - - Weight 68 kg (150 lb) 08/14/2018 2:46 PM CDT Height 166.4 cm (5' 5.5 ) 08/14/2018 2:46 PM CDT Body Mass Index 24.58 08/14/2018 2:46 PM CDT documented in this encounter Progress Notes * Delonte Farfan MD - 08/14/2018 2:[address] Brian Marin Pt. In office today with her daughter. Pt. Reports headaches vary month by month in frequency and intensity and seem to be somewhat based around her menstrual cycle with the worst headaches starting around her period at times. Pt. States her current meds have varying results on reducing the pain. Kaylin Wright RN. Subjective: Patient ID: Michelle Gomez is a 33 y.o. female. HPI Back to see us today. A lot of neck pain as well as migraines. Sumatriptan she is taken on the headache days which are usually a few days before her periods. Exercise seem to exacerbate her pain when she does the aerobic type exercise. She saw her chiropractor and they have demonstrated cervical straightening on plain films. Fairly classic presentation. She drinks coffee. Will taper coffee. Caffeine can exacerbate tension headache as well as migraine. She is already on nortriptyline. 20 mg but this is a very modest dose.Going to 30 mg may be reasonable. Continue to use dual methods of control to prevent until such time as we can plan that. She wants to get we will get her off of her other medications before she gets She understands this. Discussed the caffeine content of coffee. Discussed serotonergic benefits of aerobic exercise. We will prescribe Frova (frovatriptan) to be taken each day in the 3 days prior to her periods as she is able to estimate her headache days. Patient's problem list, medications, allergies, past medical, surgical, social and family historieswere reviewed and updated as appropriate. Patient Active Problem List Diagnosis ??? Migraines ??? Panic attack ??? Seborrheic keratoses ??? Encounter for management of intrauterine contraceptive device (IUD) Patient Active Problem List Diagnosis Date Noted ??? Encounter for management of intrauterine contraceptive device (IUD) 06/04/2018 ??? Seborrheic keratoses 01/20/2018 ??? Migraines 01/14/2018 ??? Panic attack 01/14/2018 Past Medical History: Diagnosis Date ??? Acute sinusitis ??? Carpal tunnel syndrome ??? Gastroenteritis ??? Headache ??? Migraines ??? Panic attack Past Surgical History: Procedure Laterality Date ??? CARPAL TUNNEL RELEASE Left 09/12/2015 Left hand carpal tunnel release./[place] ??? CARPAL TUNNEL RELEASE Right 10/24/2015 Right hand carpal tunnel release./[place] ??? FOOT SURGERY Left bunionectomy Family History [...] TWICE DAILY NEEDED 9 tablet 5 ??? frovatriptan (FROVA) 2.5 MG tablet Take 1 tablet by mouth as needed for Migraine. If recurs, may repeat after 1 hour. Do not exceed 2 per day or 4 per week or 6 per month. 6 tablet 3 No current facility-administered medications for this visit. Current Outpatient Prescriptions on File Prior to Visit Medication Sig Dispense Refill ??? levonorgestrel (MIRENA, 52 MG,) 20 MCG/24HR IUD 1 each by Intrauterine route every five (5) years. ??? nortriptyline (PAMELOR) 10 MG capsule Take 4 capsules by mouth nightly. . 90 capsule 6 ??? SUMAtriptan succinate (IMITREX) 100 MG tablet TAKE 1 TABLET BY MOUTH TWICE DAILY NEEDED 9 tablet 5 No current facility-administered medications [...] systems reviewed and are negative. Objective: BP 130/76 Pulse 76 Ht 1.664 m (5' 5.5 ) Wt 68 kg (150 lb) BMI 24.58 kg/m?? Body mass index is 24.58 kg/m??. Physical Exam Patient is alert, pleasant, [...] without status migrainosus, not intractable Chronic migraine Spells of decreased attentiveness Plan: Back to see us today. A lot of neck pain as well as migraines. Sumatriptan she is taken on the headache days which are usually a few days before her periods. Exercise seem to exacerbate her pain when she does the aerobic type exercise. She saw her chiropractor and they have demonstrated cervical straightening on plain films. Fairly classic presentation. She drinks coffee. Will taper coffee. Caffeine can exacerbate tension headache as well as migraine. She is already on nortriptyline. 20 mg but this is a very modest dose.Going to 30 mg may be reasonable. Continue to use dual methods of control to prevent until such time as we can plan that. She wants to get we will get her off of her other medications before she gets She understands this. Discussed the caffeine content of coffee. Discussed serotonergic benefits of aerobic exercise. We will prescribe Frova (frovatriptan) to be taken each day in the 3 days prior to her periods as she is able to estimate her headache days. documented in this encounter Plan of Treatment [...] symptoms documented in this encounter Care Teams Senior Relationship Manager Relationship Specialty Start Date End Date Delonte Marin MD [address] [place] [address] [address] [place] [address] PCP - General Podiatry 08/23/15 documented as of this encounter
--- OUTSIDE RECORDS SUMMARY | 2024-11-30 10:21 | XMS_ITS | Encounter Summary ---
Author Organization [employer] Address [address] [place] [address] Care Team Providers Care Line Appliance Assembler Name Role Phone Delonte aMrin MD Primary Care Provider +1- [phone] Reason for Visit * Reason Onset Date Comments Other 09/16/2015 Encounter Details Date Type Department Care Team ([facility] st Contact Info) Description 09/16/2015 Telephone [facility]opedics and Sports Medicine [address] [place] [phone] Salma Yuen RN [address] [place] [address] Other Social History Tobacco Use Types Packs/Day Years Used Date Smoking Tobacco: Never Alcohol Use Standard Drinks/Week Comments No 0 (1 standard drink = 0.6 oz pur e alcohol) Comments Unknown Sex and Gender Information Value Date Recorded Sex Assigned at Not on file Legal Sex Female 4:27 PM CDT Gender Identity Not on file Sexual Orientation Not on file documented as of this encounter Miscellaneous Notes * Telephone Encounter - Salma Yuen RN - 09/16/2015 10:56 AM CDT Pt called stating she had left ctr on 09-12-15. She states that she's having burning and sharp shooting pain that comes and goes down her left thumb. She wanted to know if that was normal. Ashanti Mckenna pediatric np notified and stated that was normal. Pt notified and vpu. She was instructed to return call to theoffice if she has any more questions or concerns. Pt vpu. documented in this encounter Plan of Treatment Not on file documented as of this encounter Visit Diagnoses Not on filedocumented in this encounter Care Teams Line Appliance Assembler Relationship Specialty Start Date End Date Delonte Marin MD [address] [facility] [address] [place] [address] PCP - General Podiatry 08/23/15 documented as of this encounter
--- OUTSIDE RECORDS SUMMARY | 2024-11-30 10:21 | XMS_ITS | Encounter Summary ---
Author Organization [employer] Address [address] [place], [place] [address] Care Team Providers Care Rack Washer Name Role Phone Delonte Marin MD Primary Care Provider +1- [phone] Reason for Visit * Reason Comments Lesion right upper lip Encounter Details Date Type Department Care Team (Late st Contact Info) Description 08/14/2017 9:00 AM CDT Office Visit [facility] [address] [phone] Brittany Choi NP [address] [address] Open comedone (Primary Dx) Social History Tobacco Use Types [...] this encounter Patient Instructions * Patient Instructions* Francesca Meza CMA - 08/14/2017 9:00 AM CDT Apply the Retin A every night and Aczone every morning documented in this encounter Progress Notes * Brittany Choi NP - 08/14/2017 9:00 AM CDT Visit for Michelle Gomez Sex: female BD: 1985 on 08/14/2017 Chief Complaint: This 32 y.o. female presents today for evaluation of a pore that has been clogged for one year. Treatment has consisted of applying samples of Aczone and Retin A 0.08 % and attempting to extract it with no resolution. Patient skin phototype appears to be SPT I; patient sunburns with short sun exposure and never tans. Physical Exam: Constitutional: Patient is a pleasant, 32 y.o. female in no apparent distress who looks her given age, is well-developed and nourished with good attention to hygiene and body habitus. Mood and affect appear appropriate to the situation and calm. Skin: Inspection of right upper cutaneous lip shows open comedone. Inspection of skin outside of affectedarea reveals no abnormalities. Assessment: 1. Open comedone. Procedure: After the patient was informed of risks, benefits and side effects of intralesional steroid injection, the patient elected to undergo injection. Informed verbal consent was obtained. Risk of atrophy with injection was explained. Injected the right upper cutaneous lip with 0.8 cc Kenalog-Acetonide and diluted to 5mg/ml. Plan: Treatment will consist of applying samples of Retin A 0.08% nightly and Aczone in the morning to the affected area. Michelle was counseled on diagnosis, treatment, and risk of treatment and verbalized understanding, monthly self skin examinations, sun protection, sunscreen and the signs and symptoms of skin cancer as well as the progression from actinic keratoses to squamous cell carcinoma. Follow-up: Michelle should return to the office as needed, sooner if the patient has any concerns and sooner if the patient notes any worrisome lesions on self exam. SAP documented in this encounter Plan of Treatment Not on file documented as of this encounter Visit Diagnoses Diagnosis Open comedone- Primary Other acne documented in this encounter Administered Medications Inactive Administered Medications - up to 3 most recent administrations Medication Order MAR Action Action Date Dose Rate Site triamcinolone acetonide (KENALOG) injection 5 mg, Other, ONCE, On 9/27/17 at 1230, For 1 doseIndications:Open comedone Given 08/14/2017 12:06 PM CDT 5 mg Face documented in this encounter Care Teams Rack Washer Relationship Specialty Start Date End Date Delonte Marin MD [address] [facility] [address] [place] [address] PCP - General Podiatry 08/23/15 documented as of this encounter
--- OUTSIDE RECORDS SUMMARY | 2024-11-30 10:21 | XMS_ITS | Encounter Summary ---
Author Organization [employer] Address [address] [place] [address] Care Team Providers Care Typing Section Chief Name Role Phone Delonte Marin MD Primary Care Provider +1- [phone] Reason for Visit * Reason Onset Date Comments clogged pore 07/25/2017 Encounter Details Date Type Department Care Team (Late st Contact Info) Description 07/25/2017 Telephone [facility] D[facility]at[facility] [address] [place] [phone] Mela Castelan MA [facility] [place] [address] clogged pore Social History Tobacco Use Types Packs/Day Years [...] encounter Miscellaneous Notes * Telephone Encounter - Mela Castelan MA - 07/25/2017 10:34 AM CDT Pt seen Lou Choi on 07/18 for what she believed to be a clogged pore on her lip. Pt stated thepore is still there and isn't any better at all. Pt stated she is using the Retin A and she has used that in the past and it doesn't do anything to the pore. After talking with Lou Choi I informed pt I could schedule her an apt to have a punch Bx done. Pt agreed and pt is scheduled for 08/14. KLF documented in this encounter Plan of Treatment Not on file documented as of this encounter Visit Diagnoses Not on filedocumented in this encounter Care Teams Typing Section Chief Relationship Specialty Start Date End Date Delonte Marin MD [address] [facility] [address] [place] [address] PCP - General Podiatry 08/23/15 documented as of this encounter
--- OUTSIDE RECORDS SUMMARY | 2024-11-30 10:21 | XMS_ITS | Encounter Summary ---
Author Organization [employer] Address [address] [place] [address] Care Team Providers Care Flux Mixer Name Role Phone Delonte Marin MD Primary Care Provider +1- [phone] Reason for Visit * Reason Onset Date Comments Other 11/07/2015 Encounter Details Date Type Department Care Team ([facility] st Contact Info) Description 11/07/2015 Telephone [facility] Orthopedics and Sports Medicine [address] [place] [phone] Salma Yuen RN [address] [place] [address] Other Social History Tobacco Use Types [...] Telephone Encounter - Salma Yuen RN - 11/07/2015 10:05 AM POISING INSPECTOR Spoke with pt and she stated that she removed her stitches in her right hand with a cuticle liberty. Pt had a right ctr on 10-24-15. Pt denies any signes of infection such as redness, drainage for warmth to touch. She was instructed to call the office if she has any signs of infections as above. Pt vpu. Dr. Anderson notified. No new orders. ING INSPECTOR ING INSPECTOR * Telephone Encounter - Salma Yuen RN - 11/07/2015 10:05 AM POISING INSPECTOR ----- Message from Danielle Humphrey sent at 11/07/2015 8:27 AM POISING INSPECTOR ----- Contact: patient Provider: Justin RE: Post Op appt Is the patient active on [employer]: No Has the patient called or been called about this issue: This is a first call for this issue. Patient called and cancelled her post-op appointment, she said she took her own stitches out and itwasn't necessary to come in jke ING INSPECTOR documented in this encounter Plan of Treatment Not on file documented as of this encounter Visit Diagnoses Not on filedocumented in this encounter Care Teams Flux Mixer Relationship Specialty Start Date End Date Delonte Marin MD [address] [facility] [address] [place] [address] PCP - General Podiatry 08/23/15 documented as of this encounter
--- OUTSIDE RECORDS SUMMARY | 2024-11-30 10:21 | XMS_ITS | Encounter Summary ---
Author Organization [employer] Address [address] [place] [id number] Care Team Providers Care [employer] Name Role Phone Delonte Marin MD Primary Care Provider [phone]- [phone] Reason for Visit * Reason Comments Wrist Pain silvio CTS lt>rt ; EMG Encounter Details Date Type Department Care Team (Late st Contact Info) Description 09/02/2015 2:30 PM CDT Office Visit [facility] [address] [place] [id number] Gera Anderson DO Bilateral wrist pain (Primary Dx); Preop examination; Bilateral carpal tunnel syndrome Social History Tobacco Use Types Packs/Day [...] Sign Reading Time Taken Comments Blood Pressure 126/85 09/02/2015 2:53 PM CDT Pulse - - Temperature - - Respiratory Rate - - Oxygen Saturation - - Inhaled Oxygen Concentration - - Weight 68.9 kg (152 lb) 09/02/2015 2:53 PM CDT Height 166.4 cm (5' 5.5 ) 09/02/2015 2:53 PM CDT Body Mass Index 24.91 09/02/2015 2:53 PM CDT documented in this encounter Progress Notes * Gera Anderson DO - 09/02/2015 3:48 PM CDT Subjective: Patient ID: Michelle Gomez is a 30 y.o. female. Chief Complaint: HPI Comments: This patient was seen as a consult for Dr. Marin. A copy of this report was sent to him/her. Patient ID: iMchelle Gomez is a 30 y.o. female. Chief Complaint: Patient has been complaining of numbness in the bilateral hand(s) for about 2 months. Symptoms are primarily in the median nerve distribution, with significant ulnar nerve involvement as well. The patient denies history of trauma; onset of symptoms was spontaneous and is gradually progressive. Symptoms are worse on the left than on the right. The patient complains of symptoms at night. She denies an increase in dropping objects and difficulty with fine motor control. Previous treatments: Bracing: no. Injections: no. Social History Occupational History ??? Not on file. Social History Main Topics ??? Smoking status: Never Smoker ??? Smokeless tobacco: Not on file ??? Alcohol Use: No ??? Drug Use: No ??? Sexual Activity: Not on file Review of Systems HENT: Negative. Eyes: Negative. Respiratory: Negative. Cardiovascular: Negative. Gastrointestinal: Negative. Endocrine: Negative for cold intolerance and heat intolerance. Genitourinary: Negative. Musculoskeletal: Negative for back pain, joint swelling, gait problem, neck pain and neck stiffness. Skin: Negative. Allergic/Immunologic: Negative. Neurological: Positive for weakness and numbness. Negative for dizziness, tremors, seizures, speechdifficulty, light-headedness and headaches. Hands Hematological: Does not bruise/bleed easily. Psychiatric/Behavioral: Negative for confusion and agitation. All other systems reviewed and are negative. Objective: Ortho Exam Overall, the patient appears healthy and well nourished. Examination of the bilateral upper extremities shows full active and passive range of motion of both wrists and all fingers without deformity or instability. Skin is clean, dry, and intact bilaterally. Sensation, capillary refill, and motor are grossly intact bilaterally. The patient has no thenar atrophy of the right hand, no thenar atrophy of the left hand. Provocative tests: Carpal tunnel compression test is positive on the right, positive on the left. Prayer Sign is positive on the right, positive on the left. Phalen's sign is negative on the right, negative on the left. Tinel's sign at the cubital tunnel is negative on the right, negative on the left. Nerve Conduction Study: I reviewed the patient's available nerve conduction study and the accompanying neurologist interpretation. Results are consistent with bilateral wrist carpal tunnel syndrome, worse on the left than the right. PHYSICAL EXAM: HEENT: Pupils are equal, round, reactive. They accommodate appropriately. No scleral icterus. Trachea is midline. Head is normocephalic, atraumatic. CHEST: Breath sounds are clear to auscultation bilaterally. No wheezes, rales, or rhonchi. HEART: Regular rate and rhythm. No gallops, murmurs, or rubs. ABDOMEN: Soft and nontender. No guarding, no rebound. Bowel sounds normal. NERVOUS SYSTEM: Normal coordination. Sensation is intact except as noted above. GENITOURINARY SYSTEM: Deferred. Assessment: 1. Bilateral wrist pain 2. Preop examination 3. Bilateral carpal tunnel syndrome Plan: We discussed multiple treatment options. The patient elected to proceed with staged bilateral carpal tunnel release, left than right. She is healthy will not need preoperative evaluation. Right now she wants wide-awake procedures bilaterally, but she may change her mind. I had a detailed discussion with the patient today concerning the risks, benefits, and potential complications of carpal tunnel release. Potential complications discussed include: -Pain, both acute and chronic, including pilar pain. -Excessive blood loss requiring blood transfusion. -Infection, both acute and chronic. -Anesthesia complications including: Nausea, vomiting, aspiration, pneumonia, heart stopping, and breathing stopping. -Injury to nerves, blood vessels, bones, ligaments, and tendons. -Allergic reaction to any medications. -Injury from pressure or positioning, including tourniquet pain. -Blood clots including deep vein thrombosis and pulmonary embolism. -Failure to improve after surgery, or late relapse. -Limb loss and . The patient expressed understanding and acceptance of these risks and wishes to proceed with surgery as scheduled. documented in this encounter Plan of Treatment Not on file documented as of this encounter Results * (ABNORMAL) CBC auto differential (09/06/2015 1:42 PM CDT) WBC 11.2(H) 3.1 - 11.0 x10^3/uL [facility] RBC 4.52 3.60 - 5.17 x10^6/uL [facility] HGB 14.0 11.1 - 15.3 g/dL [facility] HCT 40.0 33.7 - 46.0 % [facility] MCV 88.5 81.0 - 98.0 fL [facility] MCH 31.0 27.2 - 33.3 pg [facility] MCHC 35.0 31.7 - 35.6 g/dL [facility] RDW-CV 11.4 10.8 - 14.6 % [facility] SD-RDW 36.4(L) 37.0 - 50.4 fL [facility] Platelets 216 147 - 370 x10^3/uL [facility] MPV 11.9 9.1 - 12.1 fL [facility] NE% 70.1 42.0 - 76.0 % [facility] %LYMPH 20.4 15.0 - 44.0 % [facility] %MONO 7.2 4.0 - 13.0 % [facility] % Eosinophils 1.5 0.0 - 6.0 % [facility] % Basophils 0.6 0.0 - 1.0 % [facility] Imm Gran Relative 0.2 0.0 - 1.0 % [facility] NE# 7.8(H) 1.2 - 7.3 x10^3/uL [facility] Lymphs # 2.3 0.6 - 3.5 x10^3/uL [facility] Vigo# 0.8 0.2 - 0.9 x10^3/uL [facility] Eosinophils Absolute Count 0.2 0.0 - 0.4 x10^3/uL [facility] Basophils Absolute 0.1 0.0 - 0.1 x10^3/uL [facility] Imm Gran Absolute 0.02 0.00 - 0.10 x10^3/uL [facility] Blood specimen (specimen) 09/06/2015 1:42 PM CDT 09/06/2015 2:57 PM CDT Comment:BLD Narrative [facility] - 09/06/2015 3:18 PM CDT Testing performed at [facility], CLIA #[id number]. Specimen: BLD us Gera Anderson DO LAB BLOOD ORDERABLES Final Re sult [facility] [address] [phone] documented in this encounter Visit Diagnoses Diagnosis Bilateral wrist pain- Primary Preop examination Preoperative examination, unspecified Bilateral carpal tunnel syndrome Carpal tunnel syndrome documented in this encounter Care Teams [employer] Relationship Specialty Start Date End Date Delonte Marin MD [address] [facility] [address] [place] [address] PCP - General Podiatry 08/23/15 documented as of this encounter
--- OUTSIDE RECORDS SUMMARY | 2024-11-30 10:21 | XMS_ITS | Encounter Summary ---
Author Organization [facility] Address [address] [place] [id number] Care Team Providers Care Larriman Helper Name Role Phone Delonte Marin MD Primary Care Provider [phone] Reason for Visit * Reason Comments Breast Mass Encounter Details Date Type Department Care Team (Late st Contact Info) Description 01/14/2018 3:00 PM FIEL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 Office Visit [facility] [address] [place] [id number] Chloe Benson CNM [address] [place] [id number] Irregular periods (Primary Dx); Fibrous breast lumps; Panic attack; Chronic migraine without aura without status migrainosus, [...] Sign Reading Time Taken Comments Blood Pressure 110/76 01/14/2018 2:58 PM FIEL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 Pulse 86 01/14/2018 2:58 PM FIEL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 Temperature 36.5 ??C (97.7 ??F) 01/14/2018 2:58 PM CS T Respiratory Rate 16 01/14/2018 2:58 PM FIEL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 Oxygen Saturation 100% 01/14/2018 2:58 PM FIEL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 Inhaled Oxygen Concentration - - Weight 71.8 kg (158 lb 3.2 oz) 01/14/2018 2:58 P M FIEL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 Height 167.6 cm (5' 6 ) 01/14/2018 2:58 PM FIEL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 Body Mass Index 25.53 01/14/2018 2:58 PM FIEL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 documented in this encounter Patient Instructions * Patient Instructions* Chloe Benson, STEPHANIE - 01/14/2018 3:51 PM FIEL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 Images from the original note were not included. Patients PCP is: Dr. Tomas MD [address] [place] [address] Breast Lumps: Care Instructions Your Care Instructions Breast lumps are common, especially in women between ages 30 and 50. Many women's breasts feel lumpy and tender before their menstrual period. Women also may have lumps when they are . Breast lumps may go away after menopause. All new breast lumps in women after menopause should be checked by a doctor. Although lumps may be normal for you, it is important to have your doctor check any lump or thickness that is not like the rest of your breast to make sure it is not cancer. A lump may be larger, harder, or different from the rest of your breast tissue. Follow-up care is a galvez part of your treatment and safety. Be sure to make and go to all appointments, and call your doctor if you are having problems. It's also a good idea to know your test resultsand keep a list of the medicines you take. How can you care for yourself at home? ?? Make an appointment to have a mammogram and other follow-up visits as recommended by your doctor. When should you call for help? Watch closely for changes in your health, and be sure to contact your doctor if: ? ?? You do not get better as expected. ? ?? Your breast has changed. ? ?? You have pain in your breast. ? ?? You have a discharge from your nipple. ? ?? A breast lump changes or does not go away. Where can you learn more? Go to the Search [employer] Library box on [facility] [email or web address] by clicking on the magnifying glass tab. Enter Q928 in the search box to learn more about Breast Lumps: Care Instructions. Not on [facility]? Go to [email or web address] and click the Sign Up Now linkto request an activation code. Current as of: August 30, 2016 Content Version: 11.5 ?? 5996-1402 [employer] [facility]. Care instructions adapted under license by your healthcare professional. This care instruction is for use with your licensed healthcare professional. If you have questions about a medical condition or this instruction, always ask your healthcare professional. [facility] disclaims any warranty or liability for your use of this information. Breast Lumps (Noncancerous): Care Instructions Your Care Instructions Breast lumps or changes are a common health worry for most women. Women may have many kinds of breast lumps and other breast changes throughout their lives, including ones that occur with menstrual periods, , and aging. Most breast lumps are harmless and are not cancer. Many women's breasts feel lumpy and tender before their menstrual periods. Women also may have lumps when they are . Breast lumps may go away after menopause. Common noncancerous breast lumps include: ?? Cysts, or sacs filled with fluid. ?? Skin cysts in the breast area. ?? Fatty lumps, which may be firm. These may or may not cause pain. ?? Fibroadenomas, growths that are round and firm with smooth edges. ?? Abscesses, which are pockets of infection within the breast. Follow-up care is a galvez part of your treatment and safety. Be sure to make and go to all appointments, and call your doctor if you are having problems. It's also a good idea to know your test resultsand keep a list of the medicines you take. How can you care for yourself at home? ?? Take an dkxe-vnj-[id number] pain medicine, such as acetaminophen (Tylenol), ibuprofen (Advil, Motrin), or naproxen (Aleve). Read and follow all instructions on the label. ?? Do not take two or more pain medicines at the same time unless the doctor told you to. Many painmedicines have acetaminophen, which is Tylenol. Too much acetaminophen (Tylenol) can be harmful. ?? If you are , do not take any medicine other than acetaminophen unless your doctor has told you to. ?? Wear a supportive bra, such as a sports bra or jog bra. ?? You may want to limit caffeine. Some women say that cutting back on caffeine reduces their breast tenderness. ?? A diet very low in fat (about 15% of daily diet) may reduce breast tenderness. Talk to your doctor about whether you should try a very low-fat diet. ?? A diet low in salt (sodium) also may reduce breast tenderness. When should you call for help? Watch closely for changes in your health, and be sure to contact your doctor if you: ? ?? You do not get better as expected. ? ?? Your breast has changed. ? ?? You have pain in your breast. ? ?? You have a discharge from your nipple. ? ?? A breast lump changes or does not go away. Where can you learn more? Go to the Search Health Library box on [facility] [email or web address] by clicking on the magnifying glass tab. Enter B530 in the search box to learn more about Breast Lumps (Noncancerous): Care Instructions. Not on [facility]? Go to [email or web address] and click the Sign Up Now linkto request an activation code. Current as of: August 30, 2016 Content Version: 11.5 ?? [id number] [employer] [facility]. Care instructions adapted under license by your healthcare professional. This care instruction is for use with your licensed healthcare professional. If you have questions about a medical condition or this instruction, always ask your healthcare professional. [facility] disclaims any warranty or liability for your use of this information. Migraine Headache: Care Instructions Your Care Instructions Migraines are painful, throbbing headaches that often start on one side of the head. They may causenausea and vomiting and make you sensitive to light, sound, or smell. Without treatment, migraines can last from 4 hours to a few days. Medicines can help prevent migraines or stop them after they have started. Your doctor can help you find which ones work best for you. Follow-up care is a galvez part of your treatment and safety. Be sure to make and go to all appointments, and call your doctor if you are having problems. It's also a good idea to know your test resultsand keep a list of the medicines you take. How can you care for yourself at home? ?? Do not drive if you have taken a prescription pain medicine. ?? Rest in a quiet, dark room until your headache is gone. Close your eyes, and try to relax or go to sleep. Don't watch TV or read. ?? Put a cold, moist cloth or cold pack on the painful area for 10 to 20 minutes at a time. Put a thin cloth between the cold pack and your skin. ?? Use a warm, moist towel or a heating pad set on low to relax tight shoulder and neck muscles. ?? Have someone gently massage your neck and shoulders. ?? Take your medicines exactly as prescribed. Call your doctor if you think you are having a problem with your medicine. You will get more details on the specific medicines your doctor prescribes. ?? Be careful not to take pain medicine more often than the instructions allow. You could get worseor more frequent headaches when the medicine wears off. To prevent migraines ?? Keep a headache diary so you can figure out what triggers your headaches. Avoiding triggers may help you prevent headaches. Record when each headache began, how long it lasted, and what the pain was like. (Was it throbbing, aching, stabbing, or dull?) Write down any other symptoms you had with the headache, such as nausea, flashing lights or dark spots, or sensitivity to bright light or loud noise. Note if the headache occurred near your period. List anything that might have triggered the headache. Triggers may include certain foods (chocolate, cheese, wine) or odors, smoke, bright light, stress, or lack of sleep. ?? If your doctor has prescribed medicine for your migraines, take it as directed. You may have medicine that you take only when you get a migraine and medicine that you take all the time to help prevent migraines. ?? If your doctor has prescribed medicine for when you get a headache, take it at the first sign ofa migraine, unless your doctor has given you other instructions. ?? If your doctor has prescribed medicine to prevent migraines, take it exactly as prescribed. Callyour doctor if you think you are having a problem with your medicine. ?? Find healthy ways to deal with stress. Migraines are most common during or right after stressfultimes. Take time to relax before and after you do something that has caused a migraine in the past. ?? Try to keep your muscles relaxed by keeping good posture. Check your jaw, face, neck, and shoulder muscles for tension. Try to relax them. When you sit at a desk, change positions often. And make sure to stretch for 30 seconds each hour. ?? Get plenty of sleep and exercise. ?? Eat meals on a regular schedule. Avoid foods and drinks that often trigger migraines. These include chocolate, alcohol (especially red wine and port), aspartame, monosodium glutamate (MSG), and some additives found in foods (such as hot dogs, curiel, cold cuts, aged cheeses, and pickled foods). ?? Limit caffeine. Don't drink too much coffee, tea, or soda. But don't quit caffeine suddenly. That can also give you migraines. ?? Do not smoke or allow others to smoke around you. If you need help quitting, talk to your doctorabout stop-smoking programs and medicines. These can increase your chances of quitting for good. ?? If you are taking control pills or hormone therapy, talk to your doctor about whether theyare triggering your migraines. When should you call for help? Call 911 anytime you think you may need emergency care. For example, call if: ? ?? You have signs of a stroke. These may include: ?? Sudden numbness, paralysis, or weakness in your face, arm, or leg, especially on only one side of your body. ?? Sudden vision changes. ?? Sudden trouble speaking. ?? Sudden confusion or trouble understanding simple statements. ?? Sudden problems with walking or balance. ?? A sudden, severe headache that is different from past headaches. ?Call your doctor now or seek immediate medical care if: ? ?? You have new or worse nausea and vomiting. ? ?? You have a new or higher fever. ? ?? Your headache gets much worse. ?Watch closely for changes in your health, and be sure to contact your doctor if: ? ?? You are not getting better after 2 days (48 hours). Where can you learn more? Go to the Search [employer] Library box on [facility] [email or web address] by clicking on the magnifying glass tab. Enter U698 in the search box to learn more about Migraine Headache: Care Instructions. Not on [facility]? Go to [email or web address] and click the Sign Up Now linkto request an activation code. Current as of: August 31, 2016 Content Version: 11.5 ?? [id number] [employer] [facility]. Care instructions adapted under license by your healthcare professional. This care instruction is for use with your licensed healthcare professional. If you have questions about a medical condition or this instruction, always ask your healthcare professional. [facility]in [facility]ManagerComplete disclaims any warranty or liability for your use of this information. Recurring Migraine Headache: Care Instructions Your Care Instructions Migraines are painful, throbbing headaches. They often start on one side of the head. They may cause nausea and vomiting and make you sensitive to light, sound, or smell. Some people may have only a few migraines throughout life. Others have them as often as several times a month. The goal of treatment is to reduce the number of migraines you have and relieve your symptoms. Evenwith treatment, you may continue to have migraines. You play an important role in dealing with yourheadaches. Work on avoiding things that seem to trigger your migraines. When you feel a headache coming on, act quickly to stop it before it gets worse. Follow-up care is a galvez part of your treatment and safety. Be sure to make and go to all appointments, and call your doctor if you are having problems. It's also a good idea to know your test resultsand keep a list of the medicines you take. How can you care for yourself at home? ?? Do not drive if you have taken a prescription pain medicine. ?? Rest in a quiet, dark room until your headache is gone. Close your eyes and try to relax or go to sleep. Do not watch TV or read. ?? Put a cold, moist cloth or cold pack on the painful area for 10 to 20 minutes at a time. Put a thin cloth between the cold pack and your skin. ?? Have someone gently massage your neck and shoulders. ?? Take your medicines exactly as prescribed. Call your doctor if you think you are having a problem with your medicine. You will get more details on the specific medicines your doctor prescribes. To prevent migraines ?? Keep a headache diary so you can figure out what triggers your headaches. Avoiding triggers may help you prevent headaches. Record when each headache began, how long it lasted, and what the pain was like. Use words like throbbing, aching, stabbing, or dull. Write down any other symptoms you had with the headache. These may include nausea, flashing lights or dark spots, or sensitivity to brightlight or loud noise. Note if the headache occurred near your period. List anything that might have triggered the headache. Triggers may include certain foods (chocolate, cheese, wine) or odors, smoke, bright light, stress, or lack of sleep. ?? If your doctor has prescribed medicine for your migraines, take it as directed. You may have medicine that you take only when you get a migraine and medicine that you take all the time to help prevent migraines. ?? If your doctor has prescribed medicine for when you get a headache, take it at the first sign ofa migraine, unless your doctor has given you other instructions. ?? If your doctor has prescribed medicine to prevent migraines, take it exactly as prescribed. Callyour doctor if you think you are having a problem with your medicine. ?? Find healthy ways to deal with stress. Migraines are most common during or right after stressfultimes. Take time to relax before and after you do something that has caused a migraine in the past. ?? Try to keep your muscles relaxed by keeping good posture. Check your jaw, face, neck, and shoulder muscles for tension. Try to relax them. When sitting at a desk, change positions often. Stretch for 30 seconds each hour. ?? Get regular sleep and exercise. ?? Eat regular meals, and avoid foods and drinks that often trigger migraines. These include chocolate and alcohol, especially red wine and port. Chemicals used in food, such as aspartame and monosodium glutamate (MSG), also can trigger migraines. So can some food additives, such as those found in hot dogs, curiel, cold cuts, aged cheeses, and pickled foods. ?? Limit caffeine by not drinking too much coffee, tea, or soda. Do not quit caffeine suddenly, because that can also give you migraines. ?? Do not smoke or allow others to smoke around you. If you need help quitting, talk to your doctorabout stop-smoking programs and medicines. These can increase your chances of quitting for good. ?? If you are taking control pills or hormone therapy, talk to your doctor about whether theyare triggering your migraines. When should you call for help? Call 911 anytime you think you may need emergency care. For example, call if: ? ?? You have symptoms of a stroke. These may include: ?? Sudden numbness, tingling, weakness, or loss of movement in your face, arm, or leg, especially on only one side of your body. ?? Sudden vision changes. ?? Sudden trouble speaking. ?? Sudden confusion or trouble understanding simple statements. ?? Sudden problems with walking or balance. ?? A sudden, severe headache that is different from past headaches. ?Call your doctor now or seek immediate medical care if: ? ?? You develop a fever and a stiff neck. ? ?? You have new nausea and vomiting, or you cannot keep down food or liquids. ?Watch closely for changes in your health, and be sure to contact your doctor if: ? ?? You have a headache that does not get better within 1 or 2 days. ? ?? Your headaches get worse or happen more often. Where can you learn more? Go to the Search [employer] Library box on [facility] [email or web address] by clicking on the magnifying glass tab. Enter V975 in the search box to learn more about Recurring Migraine Headache: Care Instructions. Not on [facility]? Go to [email or web address] and click the Sign Up Now linkto request an activation code. Current as of: August 31, 2016 Content Version: 11.5 ?? [id number] [facility] [facility]. Care instructions adapted under license by your healthcare professional. This care instruction is for use with your licensed healthcare professional. If you have questions about a medical condition or this instruction, always ask your healthcare professional. [facility] disclaims any warranty or liability for your use of this information. Panic Attacks: Care Instructions Your Care Instructions During a panic attack, you may have a feeling of intense fear or terror, trouble breathing, chest pain or tightness, heartbeat changes, dizziness, sweating, and shaking. A panic attack starts suddenly and usually lasts from 5 to 20 minutes but may last even longer. You have the most anxiety about 10 minutes after the attack starts. An attack can begin with a stressful event, or it can happen without a cause. Although panic attacks can cause scary symptoms, you can learn to manage them with self-care, counseling, and medicine. Follow-up care is a galvez part of your treatment and safety. Be sure to make and go to all appointments, and call your doctor if you are having problems. It's also a good idea to know your test resultsand keep a list of the medicines you take. How can you care for yourself at home? ?? Take your medicine exactly as directed. Call your doctor if you think you are having a problem with your medicine. ?? Go to your counseling sessions and follow-up appointments. ?? Recognize and accept your anxiety. Then, when you are in a situation that makes you anxious, sayto yourself, This is not an emergency. I feel uncomfortable, but I am not in danger. I can keep going even if I feel anxious. ?? Be kind to your body: ?? Relieve tension with exercise or a massage. ?? Get enough rest. ?? Avoid alcohol, caffeine, nicotine, and illegal drugs. They can increase your anxiety level, cause sleep problems, or trigger a panic attack. ?? Learn and do relaxation techniques. See below for more about these techniques. ?? Engage your mind. Get out and do something you enjoy. Go to a funLoyalize movie, or take a walk or hike. Plan your day. Having too much or too little to do can make you anxious. ?? Keep a record of your symptoms. Discuss your fears with a good friend or family member, or join a support group for people with similar problems. Talking to others sometimes relieves stress. ?? Get involved in social groups, or volunteer to help others. Being alone sometimes makes things seem worse than they are. ?? Get at least 30 minutes of exercise on most days of the week to relieve stress. Walking is a good choice. You also may want to do other activities, such as running, swimming, cycling, or playing tennis or team sports. Relaxation techniques Do relaxation exercises for 10 to 20 minutes a day. You can play soothing, relaxing music while youdo them, if you wish. ?? Tell others in your house that you are going to do your relaxation exercises. Ask them not to disturb you. ?? Find a comfortable place, away from all distractions and noise. ?? Lie down on your back, or sit with your back straight. ?? Focus on your breathing. Make it slow and steady. ?? Breathe in through your nose. Breathe out through either your nose or mouth. ?? Breathe deeply, filling up the area between your navel and your rib cage. Breathe so that your belly goes up and down. ?? Do not hold your breath. ?? Breathe like this for 5 to 10 minutes. Notice the feeling of calmness throughout your whole body. As you continue to breathe slowly and deeply, relax by doing the following for another 5 to 10 minutes: ?? Tighten and relax each muscle group in your body. You can begin at your toes and work your way up to your head. ?? Imagine your muscle groups relaxing and becoming heavy. ?? Empty your mind of all thoughts. ?? Let yourself relax more and more deeply. ?? Become aware of the state of calmness that surrounds you. ?? When your relaxation time is over, you can bring yourself back to alertness by moving your fingers and toes and then your hands and feet and then stretching and moving your entire body. Sometimes people fall asleep during relaxation, but they usually wake up shortly afterward. ?? Always give yourself time to return to full alertness before you drive a car or do anything thatmight cause an accident if you are not fully alert. Never play a relaxation tape while driving a car. When should you call for help? Call 911 anytime you think you may need emergency care. For example, call if: ? ?? You feel you cannot stop from hurting yourself or someone else. ?Watch closely for changes in your health, and be sure to contact your doctor if: ? ?? Your panic attacks get worse. ? ?? You have new or different anxiety. ? ?? You are not getting better as expected. Where can you learn more? Go to the Search [employer] Library box on [facility] [email or web address] by clicking on the magnifying glass tab. Enter H601 in the search box to learn more about Panic Attacks: Care Instructions. Not on [facility]? Go to [email or web address] and click the Sign Up Now linkto request an activation code. Current as of: March 29, 2017 Content Version: 11.5 ?? [place], [employer]. Care instructions adapted under license by your healthcare professional. This care instruction is for use with your licensed healthcare professional. If you have questions about a medical condition or this instruction, always ask your healthcare professional. [facility] hospitalA[facility] disclaims any warranty or liability for your use of this information. 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 documented in this encounter Progress Notes * Chloe Benson CNM - 01/14/2018 3:00 PM CST SUBJECTIVE: CC: Chief Complaint Patient presents with ??? Breast Mass HPI: Patient states she has been feeling nipple soreness, some lumps and soreness in both breasts. She denies any use of soda and has 1 coffee daily. She reports taking 5 tests that were all negative. Her test today in the clinic was also negative. She has a Mirena IUD that was inserted by Dr. Villar January 2017 for control. It has worked well for her. Menses is usually monthly but she was late this month and was worried maybe the breast tenderness was a sign of . She is also concerned about her migraine headaches and panic attacks. Her first panic attack was October 2016 and she thinks it was related to fear of as she was taking a test at that time in the bathroom. She reports 95% of her panic attacks or in the shower or bathroom. She wasoriginally started on Zoloft [address] Marin and remained on the medication for 6 months. Shehad a difficult time withdrawing from medication and felt she had a serotonin withdrawal syndrome. She then was seen by a psychiatrist who had prescribed Lexapro 10 mg, that she did not start becauseshe was fearful of having trouble weaning off of the Lexapro. She is also interested in getting better control of her migraine headaches. She reports Excedrin migraine is not effective. She does get relief from the oral Imitrex. She reports she has had normal thyroid testing in the past. She wonders if her mood is a trigger for the migraines. ROS: CONSTITUTIONAL: Negative for fatigue, chills, fever, [...] discharge, vaginal itching and history of douching. Light monthly menses. NEUROLOGICAL: Negative for dizziness, fainting, memory loss, seizures, tremor and weakness. She is positive for migraine headaches. She has been using Imitrex on a as needed basis and sometimes has needed the medication daily. She reports in the past she had an aura with her headache but no aura currently. She has been evaluated with MRIs and CAT scans in the past. She does report using oral contraceptives in the past. PSYCHIATRIC: Negative for crying spells, depression, feelings of stress, anhedonia, mood swings, premenstrual tension syndrome, recreational drug use, sadness, sleep disturbance and suicidal thoughts. She is positive for anxiety and panic attacks. They just started October 2016. PMH/FMH/SH: Past Medical History: Past Medical History: Diagnosis Date ??? Acute sinusitis ??? Carpal tunnel syndrome ??? Gastroenteritis ??? Migraines ??? Panic attack Surgical History: Past Surgical History: Procedure Laterality Date ??? CARPAL TUNNEL RELEASE Left 09/12/2015 Left hand carpal tunnel release./[place] ??? CARPAL TUNNEL RELEASE Right 10/24/2015 Right hand carpal tunnel release./[place] ??? FOOT SURGERY Left bunionectomy Family History: [...] List Diagnosis ??? Migraines ??? Panic attack Immunizations: There is no immunization history on file for this patient. Allergies: Patient has no known allergies. Current Medications: Current Outpatient Prescriptions Medication Sig Dispense Refill ??? ALPRAZolam (XANAX) 0.25 MG tablet Take 1 tablet by mouth 2 (two) times daily as needed for Anxiety. 15 tablet 0 ??? ondansetron (ZOFRAN-ODT) 8 MG disintegrating tablet Take 1 tablet by mouth every 8 (eight) hours as needed for Nausea. 15 tablet 1 ??? SUMAtriptan succinate (IMITREX) 100 MG tablet Take 100 mg by mouth 2 (two) times daily as needed. 5 No current facility-administered medications for this visit. OBJECTIVE: Vitals: Vitals: 01/14/18 1458 BP: 110/76 Pulse: 86 Resp: 16 Temp: 36.5 ??C (97.7 ??F) Exams: PHYSICAL EXAM: GENERAL: well developed and nourished; appropriately groomed; in no apparent distress; BREAST: Breast exam is normal without masses, skin changes, or nipple discharge; she does have several areas of fibroglandular changes that mirror each other in the upper outer quadrant of each breast. She denies soreness with my exam. PSYCHIATRIC: appropriate affect and demeanor; normal speech pattern; grossly normal memory; ASSESSMENT 1. Irregular periods POCT urine 2. Fibrous breast lumps 3. Panic attack 4. Chronic migraine without aura without status migrainosus, not intractable ORDERS: Orders Placed This Encounter Procedures ??? POCT urine PLAN: After my clinical exam and reassurance she is not concerned about the fibroglandular changes in herbreasts. She is relieved that she had a negative clinic test. She reports she does feel her Mirena IUD string. She is overdue for yearly exam and will plan a return the office to catch up. She would like to do some screening labs. She would like a referral to see Dr. Farfan for improvement in her migraine headache management. She is interested in trying Xanax on a as needed basis forher panic attacks. We discussed working with a counselor for her panic attacks but she prefers not to be on medication on a daily basis. We did discuss some coping mechanisms. She will let me know how she is doing with Xanax when she returns for yearly exam. I encouraged her to continue on a folic acid multivitamin and vitamin D3 at least 3000 units daily. 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 documented in this encounter Plan of Treatment Not on file documented as of this encounter Procedures Procedure Name Priority Date/Time Associated Diagnosis Comments POCT HCG, QUALITATIVE, URINE Routine 01/14/2018 Irregular periods documented in this encounter Results * POCT urine (01/14/2018) Preg Test, Ur POC Negative Negative, Indeterminate [facility] PO[facility] Test, UR POC [facility] PO[facility] 01/14/2018 Chloe Benson CNM POINT OF CARE TEST ORDERAB LES Final Result [facility] POCTS documented in this encounter Visit Diagnoses Diagnosis Irregular periods- Primary Irregular menstrual cycle Fibrous breast lumps Lump or mass in breast Panic attack Panic disorder without agoraphobia Chronic migraine without aura without status migrainosus, not intractable Chronic migraine without aura, without mention of intractable migraine without mention of status migrainosus documented in this encounter Care Teams Larriman Helper Relationship Specialty Start Date End Date Delonte Marin MD [address] [facility] [address] [place] [address] PCP - General Podiatry 08/23/15 documented as of this encounter
--- OUTSIDE RECORDS SUMMARY | 2024-11-30 10:21 | XMS_ITS | Encounter Summary ---
Author Organization [employer] Address [address] [place], [place] [id number] Care Team Providers Care Architect Intern Name Role Phone Delonte Marin MD Primary Care Provider +1- [phone] Encounter Details Date Type Department Care Team (Latest Contact Info) Description 06/03/2016 Documentation Social History Tobacco Use Types Packs/Day Years [...] on filedocumented in this encounter Care Teams Architect Intern Relationship Specialty Start Date End Date Delonte Marin MD [address] [facility] [address] [place] [address] PCP - General Podiatry 08/23/15 documented as of this encounter
--- OUTSIDE RECORDS SUMMARY | 2024-11-30 10:21 | XMS_ITS | Encounter Summary ---
Author Organization [employer] Address [address] [place] [address] Care Team Providers Care Fire Investigation Lieutenant Name Role Phone Delonte Marin MD Primary Care Provider +1- [phone] Reason for Visit * Reason Comments Pre-op Exam right ctr-12-7-15 Encounter Details Date Type Department Care Team (Late st Contact Info) Description 10/17/2015 10:10 AM TOURIST INFORMATION ASSISTANT Office Visit [facility] [address] [place] [id number] Gera [place] DO Carpal tunnel syndrome of right wrist (Primary Dx); Preop examination Social History Tobacco Use Types Packs/Day Years [...] Taken Comments Blood Pressure - - Pulse - - Temperature - - Respiratory Rate - - Oxygen Saturation - - Inhaled Oxygen Concentration - - Weight 69.9 kg (154 lb) 10/17/2015 10:53 AM TOURIST INFORMATION ASSISTANT Height 166.4 cm (5' 5.5 ) 10/17/2015 10:53 AM CS T Body Mass Index 25.24 10/17/2015 10:53 AM TOURIST INFORMATION ASSISTANT documented in this encounter Progress Notes * Gera [place] DO - 10/17/2015 10:54 AM CST Subjective: Patient ID: Michelle Gomez is a 30 y.o. female. Chief Complaint: HPI Comments: This patient is here for a preoperative visit prior to a right hand carpal tunnel release. The patient has had no change in symptoms or physical exam since the previous visit. A complete preoperative history and physical were performed during this visit. Past Medical History Diagnosis Date ??? Carpal tunnel syndrome Past Surgical History Procedure Laterality Date ??? Foot surgery Left bunionectomy ??? Carpal tunnel release Left 09/12/2015 Left hand carpal tunnel release./[place] Social History Occupational History ??? Not on file. Social History Main Topics ??? Smoking status: Never Smoker ??? Smokeless tobacco: Not on file ??? Alcohol Use: No ??? Drug Use: No ??? Sexual Activity: Not on file Family History Problem Relation Age of Onset ??? Diabetes Paternal Grandmother ??? Diabetes Paternal Grandfather ??? Cancer Neg Hx ??? Heart disease Neg Hx Review of Systems Constitutional: Negative. HENT: Negative. Eyes: Negative. Respiratory: Negative. Cardiovascular: Negative. Gastrointestinal: Negative. Endocrine: Negative. Genitourinary: Negative. Musculoskeletal: Negative. Skin: Negative. Allergic/Immunologic: Negative for environmental allergies and food allergies. Neurological: Negative. Hematological: Does not bruise/bleed easily. Psychiatric/Behavioral: Negative for confusion and agitation. Objective: Ht 1.664 m (5' 5.5 ) Wt 69.854 kg (154 lb) BMI 25.23 kg/m2 Body mass index is 25.23 kg/(m^2). Physical Exam Constitutional: She is oriented to person, place, and time. She appears well- developed and well-nourished. No distress. HENT: Head: Normocephalic and atraumatic. Mouth/Throat: No oropharyngeal exudate. Eyes: Conjunctivae and EOM are normal. Pupils are equal, round, and reactive to light. No scleral icterus. Cardiovascular: Normal rate, regular rhythm and normal heart sounds. Exam reveals no gallop and no friction rub. No murmur heard. Pulmonary/Chest: Effort normal and breath sounds normal. No respiratory distress. She has no wheezes. She has no rales. Abdominal: Soft. Bowel sounds are normal. She exhibits no distension. There is no tenderness. Thereis no rebound. Neurological: She is alert and oriented to person, place, and time. She has normal reflexes. No cranial nerve deficit. Coordination normal. Skin: Skin is warm and dry. No rash noted. She is not diaphoretic. No erythema. No pallor. Ortho Exam The patient is a healthy, well-nourished appearing 22-year-old female. She is in no acute distress. Examination the right hand shows full active and passive range of motion of all fingers without deformity or instability. No erythema, edema, or ecchymosis. Sensation is grossly normal. Assessment: 1. Carpal tunnel syndrome of right wrist 2. Preop examination Plan: I had a detailed discussion with the [...] wishes to proceed with surgery as scheduled. IST INFORMATION ASSISTANT documented in this encounter Plan of Treatment Not on file documented as of this encounter Results * (ABNORMAL) CBC auto differential (10/17/2015 11:21 AM TOURIST INFORMATION ASSISTANT) WBC 7.4 3.1 - 11.0 x10^3/uL [facility] RBC 4.39 3.60 - 5.17 x10^6/uL [facility] HGB 13.4 11.1 - 15.3 g/dL [facility] HCT 38.4 33.7 - 46.0 % [facility] MCV 87.5 81.0 - 98.0 fL [facility] MCH 30.5 27.2 - 33.3 pg [facility] MCHC 34.9 31.7 - 35.6 g/dL [facility] RDW-CV 11.3 10.8 - 14.6 % [facility] SD-RDW 35.6(L) 37.0 - 50.4 fL [facility] Platelets 215 147 - 370 x10^3/uL [facility] MPV 10.7 9.1 - 12.1 fL [facility] Blood specimen (specimen) 10/17/2015 11:21 AM TOURIST INFORMATION ASSISTANT 10/17/2015 11:41 AM TOURIST INFORMATION ASSISTANT Comment:BLD Narrative [facility] - 10/17/2015 12:46 PM TOURIST INFORMATION ASSISTANT Testing performed at [facility], CLIA #[id number]. Specimen: BLD us Gera [place] DO LAB BLOOD ORDERABLES Final Re sult [facility] [address] [phone] documented in this encounter Visit Diagnoses Diagnosis Carpal tunnel syndrome of right wrist- Primary Carpal tunnel syndrome Preop examination Preoperative examination, unspecified documented in this encounter Care Teams Fire Investigation Lieutenant Relationship Specialty Start Date End Date Delonte Marin MD [address] [facility] [address] [place] [address] PCP - General Podiatry 08/23/15 documented as of this encounter
--- OUTSIDE RECORDS SUMMARY | 2024-11-30 10:21 | XMS_ITS | Encounter Summary ---
Author Organization [employer] Address [address] [place] [address] Care Team Providers Care Network Support Administrator Name Role Phone Delonte Marin MD Primary Care Provider +1- [phone] Encounter Details Date Type Department Care Team ([facility] st Contact Info) Description 10/16/2017 Orders Only [facility] [address] [place] [id number] Elena Stereter [address] [place] [address] Social History Tobacco Use Types Packs/Day Years [...] as of this encounter Progress Notes * Elena Streeter - 10/16/2017 10:20 AM CST 10/14/17 Patient is here today for the tx3 IPL HR done on her underarms and bikini area's using the MR at 44jcm2/100ms, then 24jcm2/20ms for the 2nd,pass.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
--- OUTSIDE RECORDS SUMMARY | 2024-11-30 10:21 | XMS_ITS | Encounter Summary ---
Author Organization [employer] Address [address] [place] [address] Care Team Providers Care It Engineer Name Role Phone Delonte Marin MD Primary Care Provider +1- [phone] Encounter Details Date Type Department Care Team ([facility] st Contact Info) Description 02/11/2018 Orders Only [facility] [address] [place] [id number] Elena Streeter [address] [place] [address] Social History Tobacco Use Types Packs/Day Years [...] encounter Progress Notes * Elena Streeter - 02/11/2018 2:26 PM CDT Patient is here today for the tx1 IPL HR of this year, done on her underarms and bikini area's using the MY at 48jcm2/100ms and 30jcm2/20ms for the 2nd pass.kac documented in this encounter Plan of Treatment Not on file documented as of this encounter Goals Goal Patient Goal Type Associated Problems Recent Progress Patient-Stated? Author Use sunscreen daily Lifestyle No Divya Cr, RN Frequent Skin Checks Lifestyle No Divya Cr RN documented as of this encounter Visit Diagnoses Not on filedocumented in this encounter Care Teams It Engineer Relationship Specialty Start Date End Date Delonte Marin MD [address] [facility] [address] [place] [address] PCP - General Podiatry 08/23/15 documented as of this encounter
--- OUTSIDE RECORDS SUMMARY | 2024-11-30 10:21 | XMS_ITS | Encounter Summary ---
Author Organization [employer] Address [address] [place] [address] Care Team Providers Care Local Owner Operator Truck Driver Name Role Phone Delonte Marin MD Primary Care Provider +1- [phone] Encounter Details Date Type Department Care Team ([facility] st Contact Info) Description 08/31/2015 Orders Only [facility] [address] [place] [phone] Paula Huff RN [address] [place] [address] Social History Tobacco Use Types Packs/Day Years Used Date Smoking Tobacco: Never Assessed Comments Unknown Sex and Gender Information Value Date Recorded Sex Assigned at Not on file Legal Sex Female 4:27 PM CDT Gender Identity Not on file Sexual Orientation Not on file documented as of this encounter Plan of Treatment Not on file documented as of this encounter Visit Diagnoses Not on filedocumented in this encounter Care Teams Local Owner Operator Truck Driver Relationship Specialty Start Date End Date Delonte Marin MD [address] [facility] [address] [place] [address] PCP - General Podiatry 08/23/15 documented as of this encounter
--- OUTSIDE RECORDS SUMMARY | 2024-11-30 10:21 | XMS_ITS | Encounter Summary ---
Author Organization [employer] Address [address] [place] [address] Care Team Providers Care Training Intern Name Role Phone Delonte Marin MD Primary Care Provider +1- [phone] Reason for Referral * Referral (Less than 2 months) - Closed Specialty Diagnoses / Procedures Referred By Tommie jara Referred To Contact Neurology Diagnoses Worsening headaches Chloe Benson CNM Phone: tel: fax: Delonte Farfan MD [address] [place] [address] [address] [place] [address] Phone: tel: fax: Referral ID Status Reason Start Date Expiration Date V isits Requested Visits Authorized [id number] Closed Specialty Services Required 02/19/2018 02/19/2019 1 1 Encounter Details Date Type Department Care Team (Late st Contact Info) Description 02/19/2018 Orders Only [facility] [address] [place] [address] Octavia Carrizales, [facility] [address] [facility] [facility] [address] [place] [address] Worsening headaches (Primary Dx) Social History Tobacco Use Types [...] of this encounter Plan of Treatment Scheduled Referrals Name Type Priority Associated Diagnoses Orde r Schedule Referral to Neurology Outpatient Referral Routine Worsening headaches Ordered: 02/19/2018 documented as of this encounter Goals Goal Patient Goal Type Associated Problems Recent Progress Patient-Stated? Author Use sunscreen daily Lifestyle No Divya Cr, RN Frequent Skin Checks Lifestyle No Divya Cr RN documented as of this encounter Visit Diagnoses Diagnosis Worsening headaches- Primary Headache documented in this encounter Care Teams Training Intern Relationship Specialty Start Date End Date Delonte Marin MD [address] [facility] [address] [place] [address] PCP - General Podiatry 08/23/15 documented as of this encounter
--- OUTSIDE RECORDS SUMMARY | 2024-11-30 10:21 | XMS_ITS | Encounter Summary ---
Author Organization [employer] Address [address] [place] [address] Care Team Providers Care Guidance Adviser Name Role Phone Delonte Marin MD Primary Care Provider +1- [phone] Encounter Details Date Type Department Care Team (Late st Contact Info) Description 09/20/2015 Orders Only [facility] Centralized Scanning Provider, Not In System Social History Tobacco Use Types Packs/Day Years [...] Priority Date/Time Associated Diagnosis Comments EMG Routine 08/18/2015 documented in this encounter Results * EMG (08/18/2015) us Not In System Provider NEUROLOGY ORDERABLES Edit ed Result - Final documented in this encounter Visit Diagnoses Not on filedocumented in this encounter Care Teams Guidance Adviser Relationship Specialty Start Date End Date Delonte Marin MD [address] [facility] [address] [place] [address] PCP - General Podiatry 08/23/15 documented as of this encounter
--- OUTSIDE RECORDS SUMMARY | 2024-11-30 10:21 | XMS_ITS | Encounter Summary ---
Author Organization [email or web address] Address [address] [place], [place] [address] Care Team Providers Care Fresh Foods Cake Decorator Name Role Phone Delonte Marin MD Primary Care Provider +1- [phone] Reason for Visit * Reason Comments Skin Check 1 year Encounter Details Date Type Department Care Team (Late st Contact Info) Description 01/20/2018 9:20 AM RETOUCHER PHOTOENGRAVING Office Visit [facility] [address] [phone] Brittany Choi, COTTON ACREAGE MEASURER [address] [address] Benign neoplasm of skin of trunk, except scrotum (Primary Dx); Lentigo; Seborrheic keratoses; Hemangioma of skin and subcutaneous tissue; Pkzv-kp-uglu spots; Neoplasm of uncertain behavior of skin Social History Tobacco Use Types [...] this encounter Patient Instructions * Patient Instructions* Divya Cr RN - 01/20/2018 9:20 AM RETOUCHER PHOTOENGRAVING Wear UVA/UVB hat, sunglasses and SPF 45+ sunscreen daily. Annual skin exams recommended Winter Weather Closing If [employer] are closed due to inclement weather, our office will also be closed. If the [email or web address] are on a 2 hour delay we will try to open the office at a later timein the day as well depending on the road clearance. PLEASE CALL TO SEE IF WE ARE OPEN If [employer] are closed due to the temperature, our office will remain open. Please call if you have any questions The shave site will heal from the bottom up and outside edges inward. You may shower. You should cleanse the biopsy site daily with soap and water. The wound will heal best when covered with Vaselineand a clean bandage after daily cleansing. This should prevent a scab from forming. A scab will delay healing. The wound does not need any air. Removing the bandage and exposing the wound to air promotes a scab. Early scab formation is often mistaken for infection as it will form a yellow film on the wound with surrounding redness and tenderness. This is called fibrin. If you get fibrin on the wound, you can usually remove it with peroxide on a Q-tip. If there is yellowish, draining fluid from the wound, or if you have any concerns, please call us at . UCHER PHOTOENGRAVING UCHER PHOTOENGRAVING documented in this encounter Progress Notes * Brittany Choi NP - 01/20/2018 9:20 AM CST Images from the original note were not included. Chief Complaint: This 32 y.o. female patient is here for her 1 year skin examination, presents today for a skin cancer screening the patient is concerned about a previously diagnosed open comedone toher right upper cutaneous lip that has previously been treatred with Retin A Micro, Aczone, extraction and a punch biopsy. She reports she wants it gone. Patient skin phototype appears to be SPT II patient sunburns easily and tans with difficulty. Patient has a history of freckling of upper back. Review of Systems: No abnormal findings with the exception of the chief complaint. Constitutional: Patient is a pleasant, 32 y.o. female in no apparent distress who looks her given age, is well-developed and nourished with good attention to hygiene and body habitus. Mood and affect appear appropriate to the situation and calm. Examination of conjunctiva and lids reveals no abnormalities bilaterally. Inspection of oral mucosa reveals no abnormalities. Skin: Full skin examination of the hair, scalp, face, conjunctiva, lips, neck, chest, abdomen, back, buttocks, upper extremities, lower extremities, hands, feet, and nails reveals hyperpigmented macules with even coloration on sun-exposed skin, scattered rough brown papules with visible pseudocysts, roque to brown macules and papules with regular ABCDE's and scattered small tan red papules. Inspection of right upper cutaneous lip resembles a benign neoplasm of uncertain origin that reveals a possible open comedone. Left axilla and right thigh shows roque, brown macule. Inspection of skin outside of affected area reveals no abnormalities. Assessment: 1. Benign lentigo sun-exposed skin. 2. Seborrheic keratosis back, chest, and abdomen. 3. Benign nevi back, chest, and abdomen. 4. Tan angioma back, chest, and abdomen. 5. Neoplasm of uncertain origin, possible open Comedone, right upper cutaneous lip. 6. Cafe Au Lait, left axilla and right thigh. Procedure: After obtaining informed written consent, confirming the correct location with the patient, and marking it with a surgical marker, the right upper cutaneous lip was cleansed with alcohol, and Lidocaine 1% in the amount 1.5 cc. was used for local anesthesia. The biopsy was performed by punch technique using a 3 cm punch instrument and was well tolerated by patient. The wound was closed with 6- 0 Proline using simple interrupted sutures. The wound was dressed with Vaseline and a Band-Aid. The patient should follow-up in one week for dermatopathology results and treatment adjustment accordingly. PATIENT WAS WARNED OF THE POSSIBLE SCARRING OF THE PUNCH BIOPSY SITE AND POSSIBLE INCOMPLETE REMOVAL OF OPEN COMEDONE WITH RETURN. Plan: Michelle was counseled on diagnosis, treatment, risk of treatment, verbalized understanding, monthly self skin examinations, sun protection, sunscreen, the signs and symptoms of skin cancer and the progression from actinic keratoses to squamous cell carcinoma. Follow-up: Michelle should return to the office in 1 year for follow-up, sooner if the patient has any concerns and sooner if the patient notes any worrisome lesions on self exam. We will call with the dermatopathology results and schedule follow up accordingly. Patient states she will follow up locally to her hometown in 7-10 days to have sutures removed. [facility] UCHER PHOTOENGRAVING documented in this encounter Plan of Treatment Not on file documented as of this encounter Goals Goal Patient Goal Type Associated Problems Recent Progress Patient-Stated? Author Use sunscreen daily Lifestyle No Divya Cr, RN Frequent Skin Checks Lifestyle No Divya Cr, RN documented as of this encounter Procedures Procedure Name Priority Date/Time Associated Diagnosis Comments TISSUE EXAM Routine 01/20/2018 11:34 AM RETOUCHER PHOTOENGRAVING Neoplasm of uncertain behavior of skin documented in this encounter Results * Tissue Exam (01/20/2018 11:34 AM RETOUCHER PHOTOENGRAVING) Tissue specimen (specimen) Brittany Choi NP PATHOLOGY/CYTOLOGY ORDERA BLES Final Result EXTERNAL NON UPH - NO INTERFACE documented in this encounter Visit Diagnoses Diagnosis Benign neoplasm of skin of trunk, except scrotum- Primary Lentigo Other dyschromia Seborrheic keratoses Hemangioma of skin and subcutaneous tissue Vdth-ez-loix spots Other dyschromia Neoplasm of uncertain behavior of skin documented in this encounter Care Teams Fresh Foods Cake Decorator Relationship Specialty Start Date End Date Delonte Marin MD [address] [facility] [address] [place] [address] PCP - General Podiatry 08/23/15 documented as of this encounter
--- OUTSIDE RECORDS SUMMARY | 2024-11-30 10:21 | XMS_ITS | Encounter Summary ---
Author Organization [email or web address] Address [address] [place], [place] [address] Care Team Providers Care Lieutenant Fire Fighter Name Role Phone Delonte Marin MD Primary Care Provider +1- [phone] Reason for Visit * Reason Onset Date Comments Other 09/19/2015 Encounter Details Date Type Department Care Team ([facility] st Contact Info) Description 09/19/2015 Telephone [facility] Orthopedics and Sports Medicine [address] [place] [phone] Salma Yuen RN [address] [place] [address] Other Social History Tobacco Use Types [...] Telephone Encounter - Salma Yuen RN - 09/19/2015 4:20 PM CST Pt called requesting to move her right ctr to 12-7-15. Stated she wanted her left hand to heal first. D LIFE THERAPIST * Telephone Encounter - Salma Yuen RN - 09/19/2015 4:19 PM CST ----- Message from Asha Moss sent at 09/19/2015 2:34 PM CHILD LIFE THERAPIST ----- Michelle needs you to call her to reschedule her surgery. [phone] / cac recpt D LIFE THERAPIST documented in this encounter Plan of Treatment Not on file documented as of this encounter Visit Diagnoses Not on filedocumented in this encounter Care Teams Lieutenant Fire Fighter Relationship Specialty Start Date End Date Delonte Marin MD [address] [place] [address] [address] [place] [address] PCP - General Podiatry 08/23/15 documented as of this encounter
--- OUTSIDE RECORDS SUMMARY | 2024-11-30 10:21 | XMS_ITS | Encounter Summary ---
Author Organization [employer] Address [address] [place] [address] Care Team Providers Care Shellfish Farming Supervisor Name Role Phone Delonte Chi MD Primary Care Provider +1- [phone] Reason for Visit * Reason Onset Date Comments Vomiting 11/19/2017 Encounter Details Date Type Department Care Team (Late st Contact Info) Description 11/19/[address] [place] [address] Wendi Prince CMA [address] [facility] [address] [place] [address] Vomiting Social History Tobacco Use Types Packs/Day Years [...] Telephone Encounter - Wendi Prince CMA - 11/19/2017 5:27 PM CST Called patient back and let her know that per Dr. Chi, she needs to be evaluated in the office. She states that she does not want to come in at this time but will let us know if she needs to make an appointment. BUILDING DRAFTSPERSON * Telephone Encounter - Wendi Prince CMA - 11/19/2017 5:27 PM CST ----- Message from Venita Hernandez sent at 11/19/2017 2:56 PM SHIPBUILDING DRAFTSPERSON ----- REESE chi: anya Is the patient active on MyChart: No Has the patient called or been called about this issue: This is a first call for this issue. Patient called asking asking for Anya to be called in. She stated she has been vomiting. BUILDING DRAFTSPERSON documented in this encounter Plan of Treatment Not on file documented as of this encounter Visit Diagnoses Not on filedocumented in this encounter Care Teams Shellfish Farming Supervisor Relationship Specialty Start Date End Date Delonte Chi MD [address] [place] [address] [place] [address] PCP - General Podiatry 08/23/15 documented as of this encounter
--- OUTSIDE RECORDS SUMMARY | 2024-11-30 10:21 | XMS_ITS | Encounter Summary ---
Author Organization [employer] Address [address] [place] [address] Care Team Providers Care Information Management Specialist Name Role Phone Delonte Marin MD Primary Care Provider +1- [phone] Reason for Visit * Reason Comments Post-op Follow Up left [id number] Encounter Details Date Type Department Care Team (Late st Contact Info) Description 09/23/2015 11:10 AM MECHANICAL OPERATOR Office Visit [facility] [address] [place] [phone] Gera Anderson, Surgical aftercare, nervous system (Primary Dx); Carpal tunnel syndrome of right wrist Social History Tobacco Use Types Packs/Day Years [...] as of this encounter Progress Notes * Gera Anderson DO - 09/27/2015 5:05 PM CST Michelle Gomez is here for a 10 day follow up after carpal tunnel release of the left hand. She states that she has mild pain at the surgical site. The patient states that she has noticed a near complete improvement in her preoperative symptoms. She denies fevers, chills, nausea, or vomiting. Exam: The sutures were removed. The incision is clean, dry, and intact with no erythema or drainage. Motor, sensation, and capillary refill are intact. No pilar pain. Examination of the right hand is unchanged from previous visit. Assessment: 10 days status post left carpal tunnel release, doing well. Right hand carpal tunnel syndrome. Plan: The patient was given instructions on scar management. She may shower but not soak the wound for another 4 days. Activity as tolerated, but avoid excessive friction or pressure on the wound. Keep the wound clean. She was originally planning to have the right carpal tunnel released this week, but is decided to delay until she heels a little bit more. The meantime, she was asking if is anything we can do to help her sleep at night. A cockup wrist splint was provided. I will see her back in 3 weeks for routine followup. I will be happy to schedule her right carpal tunnel release whenever she likes. ANICAL OPERATOR documented in this encounter Plan of Treatment Not on file documented as of this encounter Visit Diagnoses Diagnosis Surgical aftercare, nervous system- Primary Aftercare following surgery of the nervous system, NEC Carpal tunnel syndrome of right wrist Carpal tunnel syndrome documented in this encounter Care Teams Information Management Specialist Relationship Specialty [place] [address] [place] [address] [address] [place] [address] PCP - General Podiatry 08/23/15 documented as of this encounter
--- OUTSIDE RECORDS SUMMARY | 2024-11-30 10:21 | XMS_ITS | Encounter Summary ---
Author Organization [employer] Address [address] [place] [address] Care Team Providers Care Metal Trades Instructor Name Role Phone Delonte Marin MD Primary Care Provider +1- [phone] Encounter Details Date Type Department Care Team (Late st Contact Info) Description 11/28/2017 Abstract [facility] [address] [facility] [address] [place] [address] Lizette Skinner, PLANT MAINTENANCE WORKER [address] [facility] [address] [place] [address] Social History Tobacco Use Types [...] on filedocumented in this encounter Care Teams Metal Trades Instructor Relationship Specialty [place] [address] [place] [address] [address] [place] [address] PCP - General Podiatry 08/23/15 documented as of this encounter
--- OUTSIDE RECORDS SUMMARY | 2024-11-30 10:21 | XMS_ITS | Encounter Summary ---
Author Organization [employer] Address [address] [place] [address] Care Team Providers Care Micro Computer Data Processor Name Role Phone Delonte Marin MD Primary Care Provider +1- [phone] Encounter Details Date Type Department Care Team (Late st Contact Info) Description 09/13/2015 [facility] Orthopedics and Sports Medicine [address] [place] [phone] Fawn Powers, GRAPPLER [address] [place] [address] Social History Tobacco Use Types Packs/Day [...] on filedocumented in this encounter Care Teams Micro Computer Data Processor Relationship Specialty Start Date End Date Delonte Marin MD [address] [facility] [address] [place] [address] PCP - General Podiatry 08/23/15 documented as of this encounter
--- OUTSIDE RECORDS SUMMARY | 2024-11-30 10:21 | XMS_ITS | Encounter Summary ---
Author Organization [employer] Address [address] [place] [address] Care Team Providers Care Digital Learning Platforms Manager Name Role Phone Delonte Marin MD Primary Care Provider +1- [phone] Reason for Visit * Reason Comments Follow-up dilated pore. Jesús zendejas RN Encounter Details Date Type Department Care Team (Late st Contact Info) Description 10/23/2017 11:30 AM SEARCH LEAD Office Visit [facility] Pl[facility] Surgery [address] [place] [phone] Maico Dyson MD [address] [place] [address] Dilated pore of Ananda (Primary Dx) Social History Tobacco Use Types [...] as of this encounter Progress Notes * Maico Dyson MD - 10/23/2017 11:30 AM CST She presents today for follow-up of the biopsy site of the RIGHT upper lip. She is still very concerned about the appearance, depressed area where the previous biopsy was taken. She still believes that there is residual cyst material. On examination, it appears to be much improved to my eye, she still has some surrounding erythema at the edge of the biopsy site and has a result, it appears to be a slightly depressed scar. There is no induration or any palpable residual material. I spent a fair bit of time discussing with her reassuring her that healing process takes some time, sometimes up toa full year from the original injury. Any further surgery that we do this time we will only generate a new fresh scar that will probably be longer, potentially raised will bring with it its own separate problems. I believe she is unduly obsessed about this scar appearance and I am concerned that any further scarring near will only aggravate that problem for her. We discussed that this does not appear to be the same problem she had prior to the biopsy, the biopsy appears to taking care of the problem for her. I recommended that she continue to wash the area, allow it to continue to heal until the redness fades which will give us an idea that she has fully healed. That may take a period of 6-9 months to a year. If the redness is completely faded, and there is still a depressed scar in the area, we can discuss possible excision but I would strongly recommend against it. I will see her backagain in the spring as needed. Time spent with patient 30 minutes, 100 percent involved in counseling and coordination of care. CH LEAD documented in this encounter Plan of Treatment Not on file documented as of this encounter Visit Diagnoses Diagnosis Dilated pore of Ananda- Primary documented in this encounter Care Teams Digital Learning Platforms Manager Relationship Specialty Start Date End Date Delonte Marin MD [address] [facility] [address] [place] [address] PCP - General Podiatry 08/23/15 documented as of this encounter
--- OUTSIDE RECORDS SUMMARY | 2024-11-30 10:21 | XMS_ITS | Encounter Summary ---
Author Organization [email or web address] Address [address] [place] [address] Care Team Providers Care Laboratory Sampler Name Role Phone Delonte Marin MD Primary Care Provider +1- [phone] Encounter Details Date Type Department Care Team ([facility] st Contact Info) Description 11/05/2017 Orders Only [facility] [address] [place] [phone] Elena Streeter [address] [place] [address] Social History Tobacco Use Types Packs/Day Years [...] encounter Progress Notes * Elena Streeter - 11/05/2017 11:02 AM CST 11/04/17 Patient is here today for the tx4 IPL HR done on her underarms using the MR at 24jcm2/20ms and the MY at 48jcm2/100ms.kac WARE QUALITY ASSURANCE ENGINEER documented in this encounter Plan of Treatment Not on file documented as of this encounter Visit Diagnoses Not on filedocumented in this encounter Care Teams Laboratory Sampler Relationship Specialty Start Date End Date Delonte Marin MD [address] [facility] [address] [place], [place] [address] PCP - General Podiatry 08/23/15 documented as of this encounter
--- OUTSIDE RECORDS SUMMARY | 2024-11-30 10:21 | XMS_ITS | Encounter Summary ---
Author Organization [employer] Address [address] [place] [address] Care Team Providers Care Hardwood Floor Finisher Name Role Phone Delonte Marin MD Primary Care Provider +1- [phone] Encounter Details Date Type Department Care Team (Late st Contact Info) Description 08/20/2017 Orders Only [facility] [place] [facility] [address] [place] [phone] Elena Streeter [address] [place] [address] Social History Tobacco Use Types Packs/Day Years [...] encounter Progress Notes * Elena Streeter - 08/20/2017 8:40 AM CDT 08/19/17 Patient is here today for the tx1 IPL HR done on her underarms and bikini are's using the MR at 44jcm2/100ms.kac documented in this encounter Plan of Treatment Not on file documented as of this encounter Visit Diagnoses Not on filedocumented in this encounter Care Teams Hardwood Floor Finisher Relationship Specialty Start Date End Date Delonte Marin MD [address] [facility] [address] [place], [place] [address] PCP - General Podiatry 08/23/15 documented as of this encounter
--- OUTSIDE RECORDS SUMMARY | 2024-11-30 10:21 | XMS_ITS | Encounter Summary ---
Author Organization [employer] Address [address] [place] [address] Care Team Providers Care Inventory Technician Name Role Phone Delonte Marin MD Primary Care Provider +1- [phone] Encounter Details Date Type Department Care Team (Late st Contact Info) Description 09/17/2017 Orders Only [facility] [place] [facility] [address] [place] [phone] Elena Streeter [address] [place] [address] Social History Tobacco Use Types Packs/Day Years [...] encounter Progress Notes * Elena Streeter - 09/17/2017 11:32 AM CDT 09/16/17 Patient is here today for the tx2 IPL HR done on her underarms and bikini area's using the MR at 44jcm2/100ms.kac documented in this encounter Plan of Treatment Not on file documented as of this encounter Visit Diagnoses Not on filedocumented in this encounter Care Teams Inventory Technician Relationship Specialty Start Date End Date Delonte Marin MD [address] [facility] [address] [place], [place] [address] PCP - General Podiatry 08/23/15 documented as of this encounter
--- OUTSIDE RECORDS SUMMARY | 2024-11-30 10:21 | XMS_ITS | Encounter Summary ---
Author Organization [email or web address] Address [address] [place] [address] Care Team Providers Care Veneer Sander Name Role Phone Delonte Marin MD Primary Care Provider +1- [phone] Reason for Visit * Reason Comments Lesion Lesion on the face a rob the lip still present. BT Encounter Details Date Type Department Care Team (Late st Contact Info) Description 09/05/2017 10:00 AM CDT Office Visit [facility] [address] [place] [address] Mahad Dacosta MD Dilated pore of Ananda (Primary Dx) Social [...] as of this encounter Progress Notes * Mahad Dacosta MD - 09/05/2017 10:00 AM CDT Shortly after Ms. Gomez removed the sutures as instructed by Dr. Troncoso she noticed that the pore became wide open again and she has been squeezing at it and finding that there still are cyst contents at the base of the wound. I think that if she gives it more time the lesion may very well heal up pretty well, but if it has not healed in another month I want her to go back to see Dr. Troncoso and see if he can do an elliptical excision at that point. She wants to have as small a scar as possible and she would prefer a linear scar to the circular orifice that she is noticing at the present time. documented in this encounter Plan of Treatment Not on file documented as of this encounter Visit Diagnoses Diagnosis Dilated pore of Ananda- Primary documented in this encounter Care Teams Veneer Sander Relationship Specialty [place] [address] [place] [address] [place] [address] PCP - General Podiatry 08/23/15 documented as of this encounter
--- OUTSIDE RECORDS SUMMARY | 2024-11-30 10:21 | XMS_ITS | Encounter Summary ---
Author Organization [employer] Address [address] [place] [address] Care Team Providers Care Relief Worker Name Role Phone Delonte Marin MD Primary Care Provider +1- [phone] Reason for Visit * Reason Comments Abdominal Pain Right and Left upper quadrant pain for 3 days, worse when hungry. No nausea, no vomiting, no diarrhea. Encounter Details Date Type Department Care Team ([facility] st Contact Info) Description 11/22/2017 2:30 PM DERMATOLOGY TEACHER Office Visit [address] [place] [phone] CousinJessica vega, CLOTH CARRIER [address] [place], [place] [address] Nausea (Primary Dx) Social History Tobacco Use Types [...] Sign Reading Time Taken Comments Blood Pressure 102/66 11/22/2017 3:00 PM DERMATOLOGY TEACHER Pulse 110 11/22/2017 3:00 PM DERMATOLOGY TEACHER Temperature 36.9 ??C (98.5 ??F) 11/22/2017 3:00 PM CS T Respiratory Rate 18 11/22/2017 3:00 PM DERMATOLOGY TEACHER Oxygen Saturation 98% 11/22/2017 3:00 PM DERMATOLOGY TEACHER Inhaled Oxygen Concentration - - Weight 72.3 kg (159 lb 6.4 oz) 11/22/2017 3:00 P M DERMATOLOGY TEACHER Height 167.6 cm (5' 6 ) 11/22/2017 3:00 PM DERMATOLOGY TEACHER Body Mass Index 25.73 11/22/2017 3:00 PM DERMATOLOGY TEACHER documented in this encounter Patient Instructions * Patient Instructions* Jessica Collins Alexey, CLOTH CARRIER - 11/22/2017 3:19 PM DERMATOLOGY TEACHER Images from the original note were not included. Nausea and Vomiting: Care Instructions Your Care Instructions When you are nauseated, you may feel weak and sweaty and notice a lot of saliva in your mouth. Nausea often leads to vomiting. Most of the time you do not need to worry about nausea and vomiting, butthey can be signs of other illnesses. Two common causes of nausea and vomiting are stomach flu and food poisoning. Nausea and vomiting from viral stomach flu will usually start to improve within 24 hours. Nausea and vomiting from food poisoning may last from 12 to 48 hours. The doctor has checked you carefully, but problems can develop later. If you notice any problems ornew symptoms, get medical treatment right away. Follow-up care is a galvez part of your treatment and safety. Be sure to make and go to all appointments, and call your doctor if you are having problems. It's also a good idea to know your test resultsand keep a list of the medicines you take. How can you care for yourself at home? ?? To prevent dehydration, drink plenty of fluids, enough so that your urine is light yellow or clear like water. Choose water and other caffeine-free clear liquids until you feel better. If you havekidney, heart, or liver disease and have to limit fluids, talk with your doctor before you increasethe amount of fluids you drink. ?? Rest in bed until you feel better. ?? When you are able to eat, try clear soups, mild foods, and liquids until all symptoms are gone for 12 to 48 hours. Other good choices include dry toast, crackers, cooked cereal, and gelatin dessert, such as Jell-O. When should you call for help? Call 911 anytime you think you may need emergency care. For example, call if: ? ?? You passed out (lost consciousness). ?Call your doctor now or seek immediate medical care if: ? ?? You have symptoms of dehydration, such as: ?? Dry eyes and a dry mouth. ?? Passing only a little dark urine. ?? Feeling thirstier than usual. ? ?? You have new or worsening belly pain. ? ?? You have a new or higher fever. ? ?? You vomit blood or what looks like coffee grounds. ?Watch closely for changes in your health, and be sure to contact your doctor if: ? ?? You have ongoing nausea and vomiting. ? ?? Your vomiting is getting worse. ? ?? Your vomiting lasts longer than 2 days. ? ?? You are not getting better as expected. Where can you learn more? Go to the Search Certalia Library box on [employer] [email or web address] by clicking on the magnifying glass tab. Enter H591 in the search box to learn more about Nausea and Vomiting: Care Instructions. Not on [employer]ak[employer]aka? Go to [email or web address] and click the Sign Up Now linkto request an activation code. Current as of: February 04, 2017 Content Version: 11.5 ?? 7822-1489 [employer]. Care instructions adapted under license by your healthcare professional. This care instruction is for use with your licensed healthcare professional. If you have questions about a medical condition or this instruction, always ask your healthcare professional. [employer] disclaims any warranty or liability for your use of this information. Peptic Ulcer Disease: Care Instructions Your Care Instructions Peptic ulcers are sores on the inside of the stomach or the small intestine (such as a duodenal ulcer). They are most often caused by an infection with bacteria or from use of nonsteroidal anti-inflammatory drugs (NSAIDs). NSAIDs include aspirin, ibuprofen (Advil), and naproxen (Aleve). Your doctor may have prescribed medicine to reduce stomach acid. You also may need to take antibiotics if your peptic ulcers are caused by an infection. You can help yourself heal and keep ulcers from coming back by making some changes in your lifestyle. Quit smoking. Limit caffeine and alcohol. Reduce your stress. Follow-up care is a galvez part of your treatment and safety. Be sure to make and go to all appointments, and call your doctor if you are having problems. It's also a good idea to know your test resultsand keep a list of the medicines you take. How can you care for yourself at home? ?? Be safe with medicines. Take your medicines exactly as prescribed. Call your doctor if you thinkyou are having a problem with your medicine. ?? Do not take aspirin or other NSAIDs such as ibuprofen (Advil or Motrin) or naproxen (Aleve). Askyour doctor what you can take for pain. ?? Do not smoke. Smoking can make ulcers worse. If you need help quitting, talk to your doctor about stop-smoking programs and medicines. These can increase your chances of quitting for good. ?? Drink in moderation or avoid drinking alcohol. ?? Do not drink beverages that have caffeine if they bother your stomach. These include coffee, tea, and soda. ?? Eat a balanced diet of small, frequent meals. See a dietitian if you need help planning your meals. ?? Reduce stress. Avoid people and places that make you feel anxious, if you can. Learn ways to reduce stress, such as biofeedback, guided imagery, and meditation. When should you call for help? [id number] anytime you think you may need emergency care. For example, call if: ? ?? You vomit blood or what looks like coffee grounds. ? ?? You pass maroon or very bloody stools. ?Call your doctor now or seek immediate medical care if: ? ?? You have new or worse belly pain. ? ?? Your stools are black and look like tar, or they have streaks of blood. ? ?? You vomit. ?Watch closely for changes in your health, and be sure to contact your doctor if: ? ?? You do not get better as expected. Where can you learn more? Go to the Search Certalia Library box on [employer]akazaka [email or web address] by clicking on the magnifying glass tab. Enter Z086 in the search box to learn more about Peptic Ulcer Disease: Care Instructions. Not on Zakazaka? Go to [email or web address] and click the Sign Up Now linkto request an activation code. Current as of: June 10, 2017 Content Version: 11.5 ?? 4832-1922 Dely[employer]. Care instructions adapted under license by your healthcare professional. This care instruction is for use with your licensed healthcare professional. If you have questions about a medical condition or this instruction, always ask your healthcare professional. [employer] disclaims any warranty or liability for your use of this information. ATOLOGY TEACHER ATOLOGY TEACHER documented in this encounter Progress Notes * Jessica Collins NP - 11/22/2017 2:30 PM CST [address] [facility] [id number] Dept: [phone] Dept Loc: [phone] Loc Date: 11/22/2017 Name: Michelle Gomez : 1985 PCP: Delonte Marin MD Subjective: Patient ID: Michelle Gomez is a 32 y.o. female. Chief Complaint Patient presents with ??? Abdominal Pain Right and Left upper quadrant pain for 3 days, worse when hungry. No nausea, no vomiting, no diarrhea. Patient presents with complaints of nausea / abdominal pain. She states that the pain started 3 days ago. She has not vomited. It is intermittent; is worse when her stomach is empty. It is better with eating food. She has treated her symptoms with zofran she had saved from a previous illness. She states that she did notice that her symptoms began after taking one of the Imitrex for a migraine headache. She also takes aleve as needed for headaches. Her symptoms have not changed but she is planning to go to the [place] next week and wanted to be seen. She has mirena and LMP was 2 weeks ago. Patient's medications, allergies, past medical, surgical, social and family histories were reviewedand updated as appropriate. Review of Systems Constitutional: Negative. HENT: Negative. Eyes: Negative. Respiratory: Negative. Cardiovascular: Negative. Gastrointestinal: Positive for abdominal pain. Endocrine: Negative. Genitourinary: Negative. Musculoskeletal: Negative. Skin: Negative. Allergic/Immunologic: Negative. Neurological: Negative. Hematological: Negative. Psychiatric/Behavioral: Negative. Objective: Blood pressure 102/66, pulse 110, temperature 36.9 ??C (98.5 ??F), temperature source Tympanic, resp. rate 18, height 1.676 m (5' 6 ), weight 72.3 kg (159 lb 6.4 oz), SpO2 98 %., BMI Body mass index is 25.73 kg/m??. Physical Exam Constitutional: She is oriented to person, place, and time. She appears well- developed and well-nourished. No distress. HENT: Head: Normocephalic and atraumatic. Right Ear: External ear normal. Left Ear: External ear normal. Nose: Nose normal. Mouth/Throat: Oropharynx is clear and moist. No oropharyngeal exudate. Eyes: Conjunctivae and EOM are normal. Pupils are equal, round, and reactive to light. No scleral icterus. Neck: Normal range of motion. Neck supple. No tracheal deviation present. No thyromegaly present. Cardiovascular: Normal rate, regular rhythm and normal heart sounds. Exam reveals no gallop and no friction rub. No murmur heard. Pulmonary/Chest: Effort normal and breath sounds normal. No respiratory distress. Abdominal: Soft. Bowel sounds are normal. She exhibits no distension and no mass. There is no tenderness. There is no rebound and no guarding. No hernia. Musculoskeletal: Normal range of motion. She exhibits no edema or deformity. Lymphadenopathy: She has no cervical adenopathy. Neurological: She is alert and oriented to person, place, and time. She displays normal reflexes. Skin: Skin is warm and dry. No rash noted. No erythema. Psychiatric: She has a normal mood and affect. Her behavior is normal. Thought content normal. Nursing note and vitals reviewed. Assessment/Plan: Problem List Items Addressed This Visit None Visit Diagnoses Nausea - Primary Relevant Medications ondansetron (ZOFRAN-ODT) 8 MG disintegrating tablet You may have a new script for nausea to take with you on your trip to the [facility]. You should begin nexium OTC twice daily for at least 1 week and then as directed. If your pain becomes worse or does not improve, please come back to the office. If you develop diarrhea or fever, please come in to the office or go to your nearest Ed. Follow-up with your PCNP when you return from your vacation. Next Visit: Return if symptoms worsen or fail to improve. Encounter of: 11/22/2017 Signed: Jessica Collins NP 11/22/2017 4:21 PM ATOLOGY TEACHER documented in this encounter Plan of Treatment Not on file documented as of this encounter Visit Diagnoses Diagnosis Nausea- Primary Nausea alone documented in this encounter Care Teams Relief Worker Relationship Specialty Start Date End Date Delonte Marin MD [address] [facility] [address] [place] [address] PCP - General Podiatry 08/23/15 documented as of this encounter
--- OUTSIDE RECORDS SUMMARY | 2024-11-30 10:21 | XMS_ITS | Encounter Summary ---
Author Organization [employer] Address [address] [place] [address] Care Team Providers Care Cardiac Monitor Technician Name Role Phone Delonte Marin MD Primary Care Provider +1- [phone] Reason for Visit * Reason Comments Lesion upper lip Encounter Details Date Type Department Care Team (Late st Contact Info) Description 07/18/2017 10:45 AM CDT Office Visit [facility] Dermatology [address] [id number] Brittany Choi, CONTROL SYSTEMS TECHNICIAN [address] [address] Acne vulgaris (Primary Dx); Open comedone Social History Tobacco Use Types Packs/Day Years [...] this encounter Patient Instructions * Patient Instructions* Gabi Lind CMA - 07/18/2017 10:45 AM CDT Winter Weather Closing If [facility] are closed due to inclement weather, our office will also be closed. If the [facility] are on a 2 hour delay we will try to open the office at a later timein the day as well depending on the road clearance. PLEASE CALL TO SEE IF WE ARE OPEN If [facility] are closed due to the temperature, our office will remain open. Please call if you have any questions Wear UVA/UVB hat, sunglasses and SPF 45+ sunscreen daily. Monthly skin exams recommended. Plan: Patient will wash face with CeraVE cleanser, apply Retin-A 0.08% to her face at bedtime and then moisturize with CeraVE lotion. [facility] [address] [place] [address], [address] [place] [address] 1. Your doctor will fax or e-prescribe a prescription with your [facility] and [facility] or she [facility] to [facility] about. 2. A Registered Pharmacist or Pricing Lead will call you to obtain any necessary informationin order to fill the prescription. *[facility] will make every attempt to contact you, however, if you don't hear from themwithin 24 hours please call [phone]. 3. Once the prescription has been filled, the pharmacist will pack it up and send it straight to your door. (Overnight delivery - free of charge!!) 4. A tracking number for your shipment will be sent to you via e-mail or text message. Please call [facility] with any questions or concerns [phone] *Toll Free [phone]. documented in this encounter Progress Notes * Brittany Choi NP - 07/18/2017 10:45 AM CDT Visit for Michelle Gomez Sex: female BD: 1985 on 07/18/2017 Chief Complaint: This 31 y.o. female presents today for initial evaluation of a spot she thinks is a clogged pore above her upper lip. Patient states she has had the lesion about 1 year and she's tried applying Aczone there and it has not helped. Patient skin phototype appears to be SPT II; patient sunburns easily and tans with difficulty. Physical Exam: Constitutional: Patient is a pleasant, 31 y.o. female in no apparent distress who looks her given age, is well-developed and nourished with good attention to hygiene and body habitus. Mood and affect appear appropriate to the situation and calm. Skin: Inspection of upper lip shows open comedone. Inspection of skin outside of affected area reveals noabnormalities. Assessment: 1. Open comedone. 2. Acne vulgaris. Procedure: Extracted comedone today in office. Plan: Patient will wash face with CeraVE cleanser, apply Retin-A 0.08% to her face at bedtime and then moisturize with CeraVE lotion. Michelle was counseled on diagnosis, treatment, and [...] notes any worrisome lesions on self exam. BLR documented in this encounter Plan of Treatment Not on file documented as of this encounter Visit Diagnoses Diagnosis Acne vulgaris- Primary Other acne Open comedone Other acne documented in this encounter Care Teams Cardiac Monitor Technician Relationship Specialty [place] [address] [place] [address] [address] [place] [address] PCP - General Podiatry 08/23/15 documented as of this encounter
--- OUTSIDE RECORDS SUMMARY | 2024-11-30 10:21 | XMS_ITS | Encounter Summary ---
Author Organization [employer] Address [address] [place] [address] Care Team Providers Care Cottage Attendant Name Role Phone Delonte Marin MD Primary Care Provider +1- [phone] Reason for Visit * Reason Onset Date Comments Results 01/24/2018 Encounter Details Date Type Department Care Team (Late st Contact Info) Description 01/24/2018 Telephone [facility] Dermatology [address] [phone] Hansa Burt MA [address] [address] Results Social History Tobacco Use Types Packs/Day Years [...] encounter Miscellaneous Notes * Telephone Encounter - Hansa Burt MA - 01/24/2018 2:33 PM CST Informed pt of punch bx done on 01/20/18 of right upper cutaneous lip--dilated pore. Pt states thatthe site is healing nicely. Pt has an appointment 02/02/19 with Lou Choi that she will keep. Pt voiced understanding and had no other concerns. linnette CERTIFIED CONCIERGE documented in this encounter Plan of Treatment Not on file documented as of this encounter Goals Goal Patient Goal Type Associated Problems Recent Progress Patient-Stated? Author Use sunscreen daily Lifestyle No Divya Cr, RN Frequent Skin Checks Lifestyle No Divya Cr, RN documented as of this encounter Visit Diagnoses Not on filedocumented in this encounter Care Teams Cottage Attendant Relationship Specialty [place] [address] [place] [address] [address] [place] [address] PCP - General Podiatry 08/23/15 documented as of this encounter
--- OUTSIDE RECORDS SUMMARY | 2024-11-30 10:21 | XMS_ITS | Encounter Summary ---
Author Organization [employer] Address [address] [place] [address] Care Team Providers Care Radiation Therapy Technician Name Role Phone Delonte Marin MD Primary Care Provider +1- [phone] Encounter Details Date Type Department Care Team (Late st Contact Info) Description 10/26/2015 [facility] Orthopedics and Sports Medicine [address] [place] [phone] Fawn Powers, SPOILAGE WORKER [address] [place] [address] Social History Tobacco Use Types Packs/Day [...] on filedocumented in this encounter Care Teams Radiation Therapy Technician Relationship Specialty Start Date End Date Delonte Marin MD [address] [facility] [address] [place] [address] PCP - General Podiatry 08/23/15 documented as of this encounter
--- OUTSIDE RECORDS SUMMARY | 2024-11-30 10:21 | XMS_ITS | Encounter Summary ---
Author Organization [employer] Address [address] [place], [place] [id number] Care Team Providers Care Feedlot Manager Name Role Phone Delonte Marin MD Primary Care Provider +1- [phone] Reason for Visit * Reason Comments Cyst Cyst under nose Encounter Details Date Type Department Care Team (Late st Contact Info) Description 09/18/2017 8:30 AM CDT Office Visit [facility] Plastic Surgery [address] [place] [phone] Maico Dyson MD [address] [place] [address] Dilated pore of Ananda (Primary Dx) [...] Sign Reading Time Taken Comments Blood Pressure 122/80 09/18/2017 9:02 AM CDT Pulse 80 09/18/2017 9:02 AM CDT Temperature - - Respiratory Rate 18 09/18/2017 9:02 AM CDT Oxygen Saturation - - Inhaled Oxygen Concentration - - Weight 70.3 kg (155 lb) 09/18/2017 9:02 AM CDT Height 167.6 cm (5' 6 ) 09/18/2017 9:02 AM CDT Body Mass Index 25.02 09/18/2017 9:02 AM CDT documented in this encounter Progress Notes * Maico Dyson MD - 09/18/2017 8:30 AM CDT Subjective: Patient ID: Michelle Gomez is a 32 y.o. female. HPI She presents today for evaluation of lesion on the upper lip. She apparently has had lesion for several years,and it appeared to be a dilated pore. Several weeks ago she underwent a 2mm punch biopsy of the area with suture closure. Upon removal of the suture, she had an opening of the area that hadthe appearance of the original lesion and she has been concerned about that. She denies any infection or drainage in the area. She is concerned about the central circular that is present in the area of the previous biopsy and is interested in possible excision of the area. She was seen by dermatology and reassured to allow some additional time for it to heal but she is concerned about the area presents to me for second opinion evaluation. Patient's problem list, medications, allergies, past medical, surgical, social and family historieswere reviewed and updated as appropriate. Review of Systems All other systems reviewed and are negative. Objective: BP 122/80 Pulse 80 Resp 18 Ht 1.676 m (5' 6 ) Wt 70.3 kg (155 lb) BMI 25.02 kg/m?? Body mass index is 25.02 kg/m??. Physical Exam Constitutional: Well appearing, well nourished and no apparent distress. Head: Atraumatic, normocephalic HEENT: no icterus, no edema, EOM are normal. She has a small 1.5mm wound on the upper lip lateral to the philtral column on the RIGHT side with no evidence of any infection or drainage. There does not appear to be a defined dilated pore this time and it appears to be mostly a healing area from her previous a punch biopsy with a mild area of dehiscence. Neck: supple, no JVD Pulmonary/Chest: Effort normal. No respiratory distress Skin: Warm and dry Neurologic: Alert, oriented x 3 Psychiatric: Normal mood and normal affect Cardiovascular: Capillary refill normal Musculoskeletal: Range of motion fingers within normal limits, sensation intact to light touch. Assessment/Orders: Diagnoses and all orders for this visit: Dilated pore of Ananda Plan: She presents today for evaluation of a area of the upper lip there was recently treated with a punch biopsy to treat a dilated pore. We discussed that sometimes when the sutures come out the area maypotentially dehisce resulting in a central opening of the wound which will gradually continue to heal and fill in. I do not think that the defect at this time is related to a recurrence or persistence of the underlying pathology that was treated. This more than likely is early healing from the punch biopsy and I recommended that she continue to wait at least a 6-8 weeks to allow it to continue toheal. As it does so, the appearance will likely improve to the point where she does not need any further treatment. If after couple months she still concerned about the area, concerned that maybe there is a persistence or recurrence of her underlying problem, then we discussed possible elliptical excision of the area with layered closure. She understands and any surgery like that has potential risks including bleeding, infection, scarring that may be avoided if we just allow her primary interven tion from a few weeks ago to heal. She is still very early in the healing process. I reassured her that no additional external treatment is necessary, just keep it clean with soap and water washing. She is pleased with information, all her questions were answered. She will follow-up with me on an as-needed basis. documented in this encounter Plan of Treatment Not on file documented as of this encounter Visit Diagnoses Diagnosis Dilated pore of Ananda- Primary documented in this encounter Care Teams Feedlot Manager Relationship Specialty Start Date End Date Delonte Marin MD [address] [place] [address] [address] [place] [address] PCP - General Podiatry 08/23/15 documented as of this encounter
--- OUTSIDE RECORDS SUMMARY | 2024-11-30 10:21 | XMS_ITS | Encounter Summary ---
Author Organization [facility] Address [address] [place] [id number] Care Team Providers Care Certified Meeting Professional Name Role Phone Delonte Marin MD Primary Care Provider [phone]- [phone] Reason for Visit * Reason Comments New Patient Small spot - Encounter Details Date Type Department Care Team (Late st Contact Info) Description 08/26/2017 2:15 PM CDT Office Visit [facility] Dermatology [address] [place] [phone] Ting Troncoso MD [address] [place] [id number] Painful skin lesion (Primary Dx); Neoplasm of uncertain behavior of skin Social [...] this encounter Patient Instructions * Patient Instructions* Ting Troncoso MD - 08/26/2017 2:15 PM CDT [facility] Dermatologic Surgery Post-Operative Wound Care Instructions Sutured Wounds 1. Leave the bulky pressure bandage on for 48 hours. Keep dressing DRY. Consider avoiding showeringfor the first 48 hours. However, if absolutely necessary to shower, cover the area as best as possible to minimize any contact with water. 2. After 48 hours remove the pressure bandage and gently clean the area with soap and water. Use hydrogen peroxide and a cotton-tipped applicator (???q- tip?? ) to remove any crust. The hydrogen peroxide solution might produce a burning sensation on application. If possible, you can rinse off what little peroxide is on the wound with water. 3. Apply vaseline or polysporin to the sutured wound, cover with a nonstick bandage (like Telfa) and apply tape to replicated what was done in clinic. With the at home dressing change, it is not necessary to apply the same amount of pressure as in the initial bulkier dressing. 4. It is safe to shower after 48 hours, but avoid direct water pressure on the sutured site. 5. Change bandage twice daily as in the manner described in Step 3. For smaller wounds, you can also consider applying ointment, then covering the wound with readily available adhesive bandage (like Band-Aid). HELPFUL HINTS 1. Maximal swelling occurs the SECOND day after surgery. In any surgery, bruising can be seen near the operative site and is commonly seen with surgery around the eye. However, bruising can appear onsites that might be slightly distant from the surgical site. With surgery of the forehead, scalp, nose and cheek, bruising can be present around the eyes and can occasionally be seen on the neck areaas well. 2. Use Tylenol for pain control. Advil, ibuprofen, aspirin and naproxen all can increase the risk of postoperative bleeding if taken in the first 24 hours after surgery. 3. Ice packs can be applied 15 minutes of every hour for pain control and to help minimize swelling. 4. Avoid smoking in general, but especially after surgery as the scar will not heal as well. 5. If bleeding or oozing occurs after surgery, apply direct pressure using the heel of your hand (the thumb pad area) and hold steady pressure for 20 minutes. Time yourself and don???t take breaks tosee if the bleeding has stopped. The pressure must be continuous. If bleeding persists or you feel a large bump in the area of surgery, call Dr. Troncoso at [phone]. 6. Minimize physical activity in the first 24 hours to minimize the risk of bleeding from increasedblood pressure. documented in this encounter Progress Notes * Ting Troncoso MD - 08/26/2017 2:15 PM CDT Procedure: Punch instrument excision Neoplasm of uncertain behavior - R upper cutaneous lip, irritated skin lesion, nonhealing for 1 year Differential diagnoses: Dilated pore of Ananda Plan: After obtaining informed written consent, confirming the correct location with the patient, and marking it with a surgical marker, the 1 was cleansed with alcohol, and Lidocaine 1% in the amount 2 cc. was used for local anesthesia. The excision was performed by punch technique using a 2 mm. punch instrument and was well tolerated by patient. The wound was closed with 6-0 prolen using simple interrupted sutures. The wound was dressed with Vaseline and a Band-Aid. The patient was educated on wound care and verbalized understanding. We will call patient with results and schedule follow up as determined by pathology results. documented in this encounter Miscellaneous Notes * Addendum Note - Lizzette Stafford CMA - 08/26/2017 2:15 PM CDTAddended by: LIZZETTE STAFFORD on: 08/26/2017 04:02 PM Modules accepted: Orders documented in this encounter Plan of Treatment Not on file documented as of this encounter Procedures Procedure Name Priority Date/Time Associated Diagnosis Comments TISSUE EXAM Routine 08/26/2017 4:41 PM CDT Painful skin lesion Neoplasm of uncertain behavior of skin documented in this encounter Results * Tissue Exam (08/26/2017 4:41 PM CDT) Tissue specimen (specimen) us Ting Troncoso MD PATHOLOGY/CYTOLOGY ORDERABLES Final Result EXTERNAL NON UPH - NO INTERFACE documented in this encounter Visit Diagnoses Diagnosis Painful skin lesion- Primary Neoplasm of uncertain behavior of skin documented in this encounter Care Teams Certified Meeting Professional Relationship Specialty Start Date End Date Delonte Marin MD [address] [facility] [address] [place], [place] [id number] PCP - General Podiatry 08/23/15 documented as of this encounter
--- OUTSIDE RECORDS SUMMARY | 2024-11-30 10:21 | XMS_ITS | Encounter Summary ---
Author Organization [facility] Address [address] [place] [address] Care Team Providers Care Dental Insurance Biller Name Role Phone Delonte Marin MD Primary Care Provider [phone]- [phone] Encounter Details Date Type Department Care Team ([facility] st Contact Info) Description 08/31/2015 Orders Only [facility] Orthopedics and Sports Medicine [address] [place] [phone] Paula Huff RN [address] [place] [phone] Social History Tobacco Use Types Packs/Day [...] filedocumented in this encounter Care Teams Dental Insurance Biller Relationship Specialty Start Date End Date Delonte Marin MD [address] [place] [address] PCP - General Podiatry 08/23/15 documented as of this encounter
== END 2024-11-24 18:30 | disposition home or self-care (01) ==
PROVIDERS: Visit Provider Surgery Plastic and Reconstructive Surgery
PROC: (CPT 19316; principal; 2024-11-24 08:30)
PROC: (CPT 19316; 2024-11-24 08:30)
DX: Z41.1 Encounter for cosmetic surgery (principal); L57.4 Cutis laxa senilis; N64.81 Ptosis of breast; F90.9 Attention-deficit hyperactivity disorder, unspecified type; Z98.890 Other specified postprocedural states; Z98.891 History of uterine scar from previous surgery
CPT/HCPCS: 19316; 15830; 15847; 15877; 80307; A9270; J0171; J0690; J1100; J1171; J2003; J2250; J2405; J2704; J3010; J7120